=== PATIENT | male | born 1935 | race Caucasian/White ===

== ENCOUNTER → 2016-09-26 | Outpatient (CLI) | payer OTHER ==
[~2016-09-26] VITALS: Ht 177.8 cm; Wt 131.5 kg
[~2016-09-26] MED LIST: BUDE1SUS INH; BUDE1SUS NEB; CARV3.12 PO; CEFD1CAP14 PO; CHOL1000 PO; CIPR1TAB10 PO; CIPR1TAB11 PO; CMD25 PO; CMD5 PO; CPR/500 PO; CPR500 PO; DAPT500I IV; ECRCR EXT; ERGO500037 PO; FERR1TAB23; FRS/40 PO; FURO-85 PO; HMLI7525 SC; HUMALOG MIX SQ; HYDR-4079 PO; INSDGIPEN SC; INSU1INJ SC; IPRASOL4 INH; LEVO100T7 PO; LINE1TAB6 PO; LOSA50TA6 PO; LSX40 PO; MCTP EXT; MCTP/85 EXT; METF-382 PO; NF1094 IV; NYSP EXT; OXGN; PROBCAP PO; SIMV20TA2 PO; TAMS0.4C38 PO; VNTHFA/IN INH; WARF5TAB7 PO; ventolin hfa INH
[2016-09-26 12:38] VITALS: BP 137/64; PULSE 72; Ht 177.8 cm; Wt 131.5 kg
== END | disposition home or self-care (01) ==
LOC: C.NEUR 12:23
PROVIDERS: ATTEND Allergy & Immunology Allergy
DX: G47.30 Sleep apnea, unspecified (principal); E11.40 Type 2 diabetes mellitus with diabetic neuropathy, unspecified

== ENCOUNTER → 2016-11-07 | Outpatient (CLI) | payer OTHER ==
[~2016-11-07] MED LIST changes: -HUMALOG MIX SQ
[2016-11-07 14:22] LABS: BASO % 0.4 %; BASO ABS # 0.03 K/uL (0-0.2); COMPLETE YES; EOS % 5.1 %; IG% 0.3 %; MEAN CELL VOLUME 95.2 fL (80-100); MEAN CORPUSCULAR HGB CONC 32.5 g/dl (32-36); MEAN PLATELET VOLUME 9.4 fL (7.4-10.4); MONO % 10.2 %; PLATELET COUNT 221 K/uL (130-400); RED BLOOD COUNT 3.78 M/uL (4.7-6.1); WHITE BLOOD COUNT 7.32 K/uL (4.8-10.8)
[2016-11-07 14:33] LABS: BLOOD UREA NITROGEN 56 mg/dl (7-18); BUN/CREATININE RATIO 27.8 (10-20); CALCIUM 8.9 mg/dl (8.5-10.1); CARBON DIOXIDE 25 mmol/L (21-32); CHLORIDE 106 mmol/L (98-107); GLUCOSE 143 mg/dl (70-99); MAGNESIUM 2.5 mg/dl (1.8-2.4); PHOSPHORUS 3.7 mg/dl (2.5-4.9); POTASSIUM 5.1 mmol/L (3.5-5.1); SODIUM 142 mmol/L (136-145)
[2016-11-07 14:40] LABS: URINE PROTIEN/CREAT RATIO 0.2 (0-0.2); URINE TOTAL PROTEIN 17.8 mg/dl (0-11.9)
[2016-11-07 14:48] LABS: URINE APPEARANCE CLEAR (CLEAR); URINE BILIRUBIN NEG (NEG); URINE COLOR YELLOW; URINE NITRITE NEG (NEG); URINE SPECIFIC GRAVITY 1.013 (1.000-1.030); UROBILINOGEN NEG (NEG); ZZUR CULT IF INDIC CLEAN CATCH NO
[2016-11-07 14:49] LABS: MANUAL MICROSCOPIC REQUIRED? NO; REVIEW REQ? NO
== END | disposition home or self-care (01) ==
LOC: C.LABCC 09:14
PROVIDERS: ATTEND Internal Medicine Nephrology
DX: N18.3 Chronic kidney disease, stage 3 (moderate) (principal); D64.9 Anemia, unspecified

== ENCOUNTER → 2016-12-12 | Outpatient (CLI) | payer OTHER ==
[~2016-12-12] VITALS: Ht 177.8 cm; Wt 127.8 kg
[~2016-12-12] MED LIST changes: +HUMALOG MIX SQ
[2016-12-12 13:06] VITALS: BP 129/53; PULSE 78; Ht 177.8 cm; Wt 127.8 kg
== END | disposition home or self-care (01) ==
LOC: C.NEUR 12:46
PROVIDERS: ATTEND Physician Assistant Medical
DX: G47.30 Sleep apnea, unspecified (principal); E11.40 Type 2 diabetes mellitus with diabetic neuropathy, unspecified; J44.9 Chronic obstructive pulmonary disease, unspecified

== ENCOUNTER 2017-01-02 07:08 | Inpatient (IN) | payer OTHER ==
[2017-01-02] VITALS (7 sets, daily range): BP systolic 91–104; BP diastolic 51–64; PULSE 44–80; TEMP 36.8–37.4; O2SAT 93–99; Ht 175.3 cm; Wt 131.4 kg
[~2017-01-02] VITALS: Ht 175.3 cm; Wt 131.4 kg
[2017-01-02] MEDS ORDERED: SODIUM CHLORIDE 0.9% 1000ML 1,000 ML IV STA ×2 (07:25→08:00)
[2017-01-02] MEDS ORDERED: SODIUM CHLORIDE 0.9% 1000ML 1,000 ML IV ONE (07:25)
--- NOTE | 2017-01-02 07:43 | EMERGENCY ROOM VISIT NOTE ---
History Report prepared by Brenibbisi: Briseida Zavala Under the Supervision of: Dr. Houston Luis M.D. First contact with patient: 07:16 Chief Complaint: FEVER Stated Complaint: FEVER History of Present Illness The patient is a 81 year old male who presents to the Emergency Room via EMS with complaints of a waxing and waning fever over the past 3 days. He states that his temperature ranges from the high 90s to 102. He also complains of a cough. He states that he has been keeping up with fluids. He reports that yesterday, he slid off of his bed when he was reaching for something onto his knees. He obtained abrasions to his knees but did not acquire any other injuries or lose consciousness. The patient could not get up on his own and had to call EMS to help him after being on the ground for about an hour. He did get a flu shot this year. His son states that the patient has not been confused recently. He is on warfarin. Past medical history includes COPD. He has an inhaler and nebulizer but has not needed to use them recently. He is diabetic and his sugars have been doing well. Denies headache, chest pain, urinary symptoms, nausea, vomiting, diarrhea, abdominal pain, or other complaints. Source of History: patient Onset: 3 days ago Position: other (global) Symptom Intensity: temperature from high 90s to 102 Timing: waxes/wanes Associated Symptoms: + cough, No abdominal pain, No chest pain, No diarrhea , No headache, No nausea, No urinary symptoms, No vomiting Review of Systems See HPI for pertinent positives & negatives. A total of 10 systems reviewed and were otherwise negative. Past Medical & Surgical Medical Problems: (1) A-fib (2) Acute kidney injury (3) Anemia (4) ASCVD (arteriosclerotic cardiovascular disease) (5) CHF (congestive heart failure) (6) COPD (chronic obstructive pulmonary disease) (7) Dermatitis, seborrheic (8) Diabetes (9) Elevated alkaline phosphatase level (10) Elevated LFTs (11) Hyperlipidemia (12) Hypertension (13) Hypotension (14) Hypothyroid (15) Ichthyosis (16) Painful diabetic neuropathy (17) Pulmonary hypertension (18) Secondary hyperparathyroidism (19) SIRS (systemic inflammatory response syndrome) (20) Sleep apnea (21) Stage 3 chronic kidney disease Surgical Problems: (1) Hx of CABG Old medical records were reviewed. Nurse's notes were reviewed and I agree with. Family History No pertinent family history stated. Social History Marital Status: Housing Status: lives with significant other Occupation Status: retired Current/Historical Medications Scheduled Carvedilol (Coreg), 3.125 MG PO BID Ergocalciferol (Vitamin D 76134 Unit), 50,000 UNIT PO MONTHLY Furosemide (Lasix), 20 MG PO Q2D Insulin Lispro 75/25 (Humalog Mix 75/25), 30 UNITS SC BID Ipratropium-Albuterol (Duoneb), 1 TREATMENT INH Q4H Levothyroxine Sodium (Levothyroxine Sodium), 100 MCG PO DAILY Losartan Potassium (Cozaar), 50 MG PO DAILY Metformin Ext Rel (Glucophage Ext Rel), 500 MG PO BID Simvastatin (Zocor), 20 MG PO DAILY Tamsulosin Hcl (Flomax), 0.4 MG PO DAILY Warfarin Sod (Jantoven), 5 MG PO UD Warfarin Sod (Jantoven), 2.5 MG PO UD Scheduled PRN Oxygen (Oxygen), 2-3 LITER NA HS PRN for Shortness of Breath Allergies Coded Allergies: Chlorpheniramine (Unverified Allergy, Unknown, ., 01/02/17) Phenylpropanolamine (Unverified Allergy, Unknown, ., 01/02/17) Physical Exam Vital Signs Date Time Temp Pulse Resp B/P Pulse Ox O2 Delivery O2 Flow Rate FiO2 01/02/17 09:20 59 24 78/53 96 Nasal Cannula 2.0 01/02/17 08:38 61 22 83/39 92 Nasal Cannula 2.0 01/02/17 07:55 62 01/02/17 07:33 96 Nasal Cannula 2.0 01/02/17 07:33 95 Nasal Cannula 2.0 01/02/17 07:22 38.1 69 24 97/41 90 Room Air Physical Exam General: Non-ill appearing older male, occasionally coughing, no respiratory distress. Well developed well nourished in no acute distress, breathing comfortably on room air. Normal speech HEENT: Normal cephalic atraumatic. Pupils are equal round and reactive to light. Extraocular movements are intact. Oropharynx is pink with moist mucous membranes. No swelling of the mouth lips or tongue. Neck: Supple with a midline trachea. No meningeal signs or stiffness, no JVD or bruits. No Stridor. Chest: Clear to auscultation bilaterally. No wheezes or rhonchi. No increased work of breathing. Heart: regular rate and rhythm. Abdomen: Soft nontender, nondistended without rebound guarding or rigidity. :. No masses or tenderness of the testicles. There is redness in the groin consistent with yeast infection. No evidence to suggest cellulitis or Jamari' s gangrene Extremities: No cyanosis clubbing or edema. No calf tenderness or assymetry. Pinkish discoloration of the left nolan with some redness of the toes and skin breakdown, no crepitus. Spine/Back. Non tender to palpation. No CVA tenderness Skin: Good turgor without rashes. Neurologic exam: Cranial nerves two through 12 are intact. Motor and sensation are intact and symmetrical throughout. Medical Decision & Procedures ER Provider Diagnostic Interpretation: Radiology results as stated below per my review and radiologist interpretation: CHEST ONE VIEW PORTABLE CLINICAL HISTORY: CHEST PAIN dyspnea COMPARISON STUDY: No previous studies for comparison. FINDINGS: Moderate cardiomegaly. Lungs are clear. Diaphragms smooth. IMPRESSION: Cardiomegaly. Otherwise negative study Electronically signed by: Tian Machado M.D. 01/02/2017 8:08 AM Dictated Date/Time: 01/02/2017 8:07 AM Laboratory Results 01/02/17 06:45 Red Blood Count 3.52, Mean Corpuscular Volume 91.2, Mean Corpuscular Hemoglobin 31.5, Mean Corpuscular Hemoglobin Concent 34.6, Mean Platelet Volume 9.8, Neutrophils (%) (Auto) 91.4, Lymphocytes (%) (Auto) 3.4, Monocytes (%) (Auto) 4.8, Eosinophils (%) (Auto) 0.0, Basophils (%) (Auto) 0.1, Neutrophils # (Auto) 18.28, Lymphocytes # (Auto) 0.68, Monocytes # (Auto) 0.96, Eosinophils # (Auto) 0.00, Basophils # (Auto) 0.01 01/02/17 06:45 Test 01/02/17 06:45 01/02/17 07:45 01/02/17 07:52 01/02/17 07:54 White Blood Count 19.99 K/uL (4.8-10.8) Red Blood Count 3.52 M/uL (4.7-6.1) Hemoglobin 11.1 g/dL (14.0-18.0) Hematocrit 32.1 % (42-52) Mean Corpuscular Volume 91.2 fL (80-100) Mean Corpuscular Hemoglobin 31.5 pg (25-34) Mean Corpuscular Hemoglobin Concent 34.6 g/dl (32-36) Platelet Count 202 K/uL (130-400) Mean Platelet Volume 9.8 fL (7.4-10.4) Neutrophils (%) (Auto) 91.4 % Lymphocytes (%) (Auto) 3.4 % Monocytes (%) (Auto) 4.8 % Eosinophils (%) (Auto) 0.0 % Basophils (%) (Auto) 0.1 % Neutrophils # (Auto) 18.28 K/uL (1.4-6.5) Lymphocytes # (Auto) 0.68 K/uL (1.2-3.4) Monocytes # (Auto) 0.96 K/uL (0.11-0.59) Eosinophils # (Auto) 0.00 K/uL (0-0.5) Basophils # (Auto) 0.01 K/uL (0-0.2) RDW Standard Deviation 49.3 fL (36.4-46.3) RDW Coefficient of Variation 14.7 % (11.5-14.5) Immature Granulocyte % (Auto) 0.3 % Immature Granulocyte # (Auto) 0.06 K/uL (0.00-0.02) Prothrombin Time 25.4 SECONDS (9.0-12.0) Prothromb Time International Ratio 2.3 (0.9-1.1) Activated Partial Thromboplast Time 39.2 SECONDS (21.0-31.0) Partial Thromboplastin Ratio 1.5 Anion Gap 11.0 mmol/L (3-11) Est Creatinine Clear Calc Drug Dose 31.3 ml/min Estimated GFR () 26.9 Estimated GFR (Non- 23.2 BUN/Creatinine Ratio 26.0 (10-20) Calcium Level 8.1 mg/dl (8.5-10.1) Total Bilirubin 2.0 mg/dl (0.2-1) Direct Bilirubin 1.0 mg/dl (0-0.2) Aspartate Amino Transf (AST/SGOT) 80 U/L (15-37) Alanine Aminotransferase (ALT/SGPT) 40 U/L (12-78) Alkaline Phosphatase 346 U/L (45-117) Total Creatine Kinase 1903 U/L (39-308) Creatine Kinase MB 2.5 ng/ml (0.5-3.6) Creatine Kinase MB Ratio 0.1 (0-3.0) Total Protein 7.1 gm/dl (6.4-8.2) Albumin 2.9 gm/dl (3.4-5.0) Lipase 114 U/L (73-393) Influenza Type A (RT-PCR) Neg for Influ A (NEG) Influenza Type A Antigen Neg for Influ A (NEG) Influenza Type B Antigen Neg for Influ B (NEG) Influenza Type B (RT-PCR) Neg for Influ B (NEG) Bedside Lactic Acid Venous 1.31 mmol/L (0.90-1.70) Bedside Troponin I 0.110 ng/ml (0-0.045) BE-Obd-U-Type Natriuretic Peptide 26459 pg/ml (0-1800) Laboratory studies as stated above per my review. Medications Administered Medications (Trade) Dose Ordered Sig/Sukhwinder Route Start Time Stop Time Status Last Admin Dose Admin Sodium Chloride 1,000 ml @ 999 mls/hr Q1H1M STAT IV 01/02/17 07:25 01/02/17 08:25 DC 01/02/17 08:18 999 MLS/HR Sodium Chloride (Nss 1000ml) 1,000 ml @ 150 mls/hr Q6H40M ONCE IV 01/02/17 07:25 01/02/17 12:07 DC 01/02/17 08:35 150 MLS/HR Piperacillin Sod/ Tazobactam Sod 4.5 gm 4.5 gm NOW STAT IV 01/02/17 07:52 01/02/17 07:54 DC 01/02/17 08:35 4.5 GM Sodium Chloride (Nss 1000ml) 250 ml @ 999 mls/hr Q16M STAT IV 01/02/17 08:00 01/02/17 08:15 DC 01/02/17 08:34 999 MLS/HR Acetaminophen 650 mg 650 mg NOW STAT PO 01/02/17 08:23 01/02/17 08:24 DC 01/02/17 08:48 650 MG Sodium Chloride 500 ml @ 999 mls/hr Q31M STAT IV 01/02/17 09:05 01/02/17 09:35 DC 01/02/17 09:05 999 MLS/HR Sodium Chloride (Nss 1000ml) 1,000 ml @ 80 mls/hr [id number] IV 01/02/17 09:24 02/01/17 09:23 01/02/17 13:27 80 MLS/HR Morphine Sulfate (MoRPHine SULFATE INJ) 2 mg Q4H PRN IV 01/02/17 09:30 01/16/17 09:29 01/02/17 15:28 2 MG Morphine Sulfate (MoRPHine SULFATE INJ) 4 mg Q4H PRN IV 01/02/17 09:30 01/16/17 09:29 01/02/17 10:02 4 MG ECG Indication: other (fever) Rate (beats per minute): 60 Rhythm: sinus bradycardia Findings: no acute ischemic change, no ectopy Comparison ECG Date: no prior available ED Course 0719: Past medical records reviewed. The patient was evaluated in room A2, and a complete history and physical examination were performed. 0725: Ordered NSS 1000 ml @ 150 mls/hr IV, NSS 1000 ml @ 999 mls/hr IV. 0751: I reassessed the patient. he was comfortable. He denies any antibiotic allergies. 0752: Ordered Zosyn 4.5 gm IV. 0800: Ordered NSS 1000 ml @ 100 mls/hr IV, NSS 250 ml @ 999 mls/hr IV. 0816: I discussed the case with Dr. Blake [facility] Hospitalist. The patient will be evaluated for further management. 0820: I spoke with the patient's son and updated him on the plan. He was in agreement. 0823: Ordered acetaminophen 650 mg PO. 0904: I spoke with Dr. Tanner and reassessed the patient. The patient's pressure dropped. I evaluated his groin which revealed yeast but no evidence of Jamari's gangrene. 0905: Ordered NSS 500 ml @ 999 mls/hr IV. Medical Decision Differentials include cellulitis, pneumonia, influenza, CHF, arrhythmia, electrolyte or metabolic abnormality. This patient comes in as described above. He was brought in by EMS after having a fever intimately for a couple days. On exam, his left leg is red and he has some redness of his toes as well, he may have a cellulitis is also had a cough and URI type symptoms. His blood pressure is mildly low at 97 systolic initially a little he looks well. He has no abdominal pain. He's been keeping up with his fluids. He has no headache. IV access was established, he has a cardiac history so he was gently hydrated initially. His chest x-ray shows cardiomegaly. EKG does not show any definite ischemic changes. White count is elevated at 19. Blood cultures were obtained his INR is therapeutic at 2.3. He is empirically given Zosyn initially 4.5 mg IV that would get good skin and initial long coverage as well. He was reassessed frequently. His lactic acid was reassuring was not elevated. He does have renal insufficiency. Chest x- ray does not show any definite pneumonia. Dr. Tanner came and saw the patient. His blood pressure was low and did trend downward to the 70s and he was given more fluids with this hydration he did come up to 100s systolic and felt better prior to being admitted to the hospital. At this point, he appears to have sepsis likely from his leg/diabetic foot. He will be admitted Consults Time Called: 08 Consulting Physician: Dr. Hayden Robins [facility] Hospitalist Returned Call: 0816 I discussed the case with him. The patient will be evaluated for further management. Impression Primary Impression: Sepsis Additional Impression: Cellulitis of left lower extremity Scribe Attestation The scribe's documentation has been prepared under my direction and personally reviewed by me in its entirety. I confirm that the note above accurately reflects all work, treatment, procedures, and medical decision making performed by me. Departure Information Dispostion Being Evaluated By Hospitalist Referrals Winston Harper M.D. (PCP) Patient Instructions My [facility] Problem Qualifiers
[2017-01-02 07:45] LABS: HEMATOCRIT 32.1 % (42-52); MEAN CELL VOLUME 91.2 fL (80-100); MEAN CORPUSCULAR HEMOGLOBIN 31.5 pg (25-34); MEAN CORPUSCULAR HGB CONC 34.6 g/dl (32-36); MEAN PLATELET VOLUME 9.8 fL (7.4-10.4); PLATELET COUNT 202 K/uL (130-400); RED BLOOD COUNT 3.52 M/uL (4.7-6.1); WHITE BLOOD COUNT 19.99 K/uL (4.8-10.8)
[2017-01-02] MEDS ORDERED: PIPERACILLIN/TAZOBACTAM 4.5 GM/100ML D5W IV STA (07:52)
[2017-01-02 07:54] LABS: INR 2.3 (0.9-1.1); PARTIAL THROMBOPLASTIN RATIO 1.5; PROTHROMBIN TIME (PATIENT) 25.4 SECONDS (9.0-12.0)
[2017-01-02] MEDS ORDERED: SODIUM CHLORIDE 0.9% 1000ML 250 ML IV STA (08:00)
[2017-01-02 08:05] LABS: CALCIUM 8.1 mg/dl (8.5-10.1); CREATININE 2.5 mg/dl (0.60-1.40); POTASSIUM 4.7 mmol/L (3.5-5.1)
--- NOTE | 2017-01-02 08:10 | DIAGNOSTIC IMAGING REPORT ---
CHEST ONE VIEW PORTABLE CLINICAL HISTORY: CHEST PAIN dyspnea COMPARISON STUDY: No previous studies for comparison. FINDINGS: Moderate cardiomegaly. Lungs are clear. Diaphragms smooth. IMPRESSION: Cardiomegaly. Otherwise negative study Electronically signed by: Tian Machado M.D. 01/02/2017 8:08 AM Dictated Date/Time: 01/02/2017 8:07 AM
[2017-01-02 08:12] LABS: BASO % 0.1 %; BASO ABS # 0.01 K/uL (0-0.2); COMPLETE YES; IG% 0.3 %; LYMPH % 3.4 %; LYMPH ABS # 0.68 K/uL (1.2-3.4); MONO % 4.8 %; NEUT % 91.4 %
[2017-01-02 08:15] LABS: POINT OF CARE TROPONIN I 0.11 ng/ml (0-0.045)
[2017-01-02 08:19] LABS: CKMB/CK RATIO 0.1 (0-3.0)
[2017-01-02] MEDS ORDERED: ACETAMINOPHEN 325 MG TAB PO STA (08:23)
[2017-01-02] MEDS ORDERED: ERGO500037 PO (08:25)
[2017-01-02] MEDS ORDERED: FURO-85 PO (08:25)
[2017-01-02] MEDS ORDERED: LOSA50TA6 PO (08:25)
[2017-01-02] MEDS ORDERED: HMLI7525 SC (08:25)
[2017-01-02] MEDS ORDERED: WARF5TAB7 PO (08:25)
[2017-01-02] MEDS ORDERED: METF-382 PO (08:25)
[2017-01-02] MEDS ORDERED: CARV3.12 PO (08:25)
[2017-01-02] MEDS ORDERED: SODIUM CHLORIDE 0.9% 1000ML 500 ML IV STA (09:05)
[2017-01-02] MEDS ORDERED: ONDANSETRON INJ 2 MG/ML 2 ML VIAL IV PRN (09:30)
[2017-01-02] MEDS ORDERED: VANCOMYCIN INJ 1,000 MG in SODIUM CHLORIDE 0.9% 250ML 250 ML SCH (09:30)
[2017-01-02] MEDS ORDERED: POLYETHYLENE (MIRALAX) 17 GM PACK PO PRN (09:30)
[2017-01-02] MEDS ORDERED: ALUMINUM/MAGNESIUM/SIMETH (MAALOX MAX) 30 ML UDC PO PRN (09:30)
[2017-01-02] MEDS ORDERED: MAGNESIUM HYDROXIDE SUSP 30 ML UDC PO PRN (09:30)
[2017-01-02] MEDS ORDERED: NITROGLYCERIN 0.4 MG SL PER TAB CHARGE SL PRN (09:30)
[2017-01-02 09:57] LABS: INFLUENZA A PCR Neg for Influ A (NEG); INFLUENZA B PCR Neg for Influ B (NEG)
[2017-01-02] MEDS ORDERED: VANCOMYCIN INJ 2,000 MG in SODIUM CHLORIDE 0.9% 500ML 500 ML IV ONE (10:00)
[2017-01-02] MEDS ORDERED: VANCOMYCIN CONSULT ACTIVE PRN (10:00)
[2017-01-02] MEDS: MoRPHine SULFATE 4 MG/ML 1 ML CARP\\VIAL IV PRN (10:02)
--- NOTE | 2017-01-02 10:29 | HISTORY & PHYSICAL EXAMINATION ---
DATE OF ADMISSION: 01/02/2017 CHIEF COMPLAINT: Weakness. ADMITTING DIAGNOSIS: Systemic inflammatory response syndrome secondary to diabetic foot infection. HISTORY OF PRESENT ILLNESS: Mr. Villarreal is an 81-year-old insulin requiring diabetic who over the last 3-4 days has been having high fevers at home. He does see podiatric care for his diabetic foot neuropathy and callus formation. He says he has been treated for an ulcer or abrasion of his left third toe for some time. The patient slipped out of bed and fell to the floor and could not get up this morning. The patient also suffers from chronic respiratory failure, COPD, obstructive sleep apnea and has been also having a cough productive of clear sputum over the last 3-4 days. Additionally, he has a rash below his pannus in his groin area which had been worsening of late also. Upon evaluation in the ER, he was found to have a white count of 19,000, acute renal failure with a BUN of 65 and creatinine of 2.5 where his baseline is around 2. Minor elevation of his troponin elevation of his CK which likely might be attributed to his fall and extremely low blood pressure 70/50. He is not tachycardic, but takes a beta jorge a daily. He is febrile 38.1. He, however, is mentating well, alert. He is getting some right leg spasmodic pain and otherwise he is recommended for admission. PAST MEDICAL HISTORY: He has got atrial fibrillation flutter chronically. He had a CABG and aortic valve replacement. He has severe pulmonary hypertension. COPD, chronic anemia which he takes iron. Heart failure is listed, although his last echocardiogram showed a preserved EF of 65% with some concentric LVH. He has got insulin requiring diabetes with neuropathy. He has chronically elevated LFTs and alkaline phosphatase, dyslipidemia, hypothyroidism, hypertension, chronic kidney disease, secondary hyperparathyroidism, BPH. MEDICATIONS: Coreg 3.125 b.i.d., vitamin D 50,000 units a month, DuoNebs p.r.n., iron 325 two times a week, Lasix 20 every other day. He took Lasix today. Hydrocodone p.r.n. for pain, Synthroid 100 mcg a day, Losartan 50 mg a day, metformin 500 mg b.i.d., insulin lispro 75/25 30 units b.i.d., Zocor 20 a day, Flomax 0.4 a day, albuterol as needed, Coumadin 5 mg 6 days a week and 2.5 mg on Sunday. SOCIAL HISTORY: He is a nonsmoker currently. He has a distant occasional smoking use. He does not drink alcohol. He is accompanied by his family. FAMILY HISTORY: Positive for diabetes, hypertension and heart disease. REVIEW OF SYSTEMS: Ten systems are reviewed and are negative unless listed above. Of note, he has got no changes in his bowel habits or urinary habits. PHYSICAL EXAMINATION: GENERAL: Physically as mentioned. VITAL SIGNS: His temperature 38.1, pulse 69, respirations rate 24, blood pressure 70/50 on my account, 83/39 on the computer, O2 sats 92 on 2 liters. HEAD, EYES, EARS, NOSE, AND THROAT: PERRL, EOMI. Oropharynx shows posterior pharyngeal thrush. He drank water and it did not clear. NECK: Without lymphadenopathy. Trachea is midline. HEART: Regular with a systolic murmur at the right upper sternal border. LUNGS: Have coarse breath sounds. No focal air loss. No wheezes. ABDOMEN: Obese, normoactive bowel sounds. Umbilical hernia which is reducible. No focal areas of tenderness. EXTREMITIES: Show changes of chronic venous stasis dermatitis, however his left extremity shows more swelling and erythema to the mid nolan. He has got erythema to the dorsum of his foot. He has got 2 abrasions on the left second and third toe on the dorsum. There is erythema and ecchymosis associated with it. His right foot does not show any of these signs, only signs of chronic venous stasis changes. His pulses are diminished but palpable 1 / 4 at his dorsalis pedis bilaterally. He is awake, alert and appropriate. Cranial nerves II-XII are intact. He has diabetic neuropathy to the mid nolan bilaterally. SKIN EXAMINATION: Only with changes of chronic venous stasis. LABORATORY DATA: He has a white count of 19, H\T\H 11 and 32, platelet count 202. BUN and creatinine 65 and 2.5, potassium 4.9. He has chronically elevated LFTs. His bilirubin is 2.0, AST is 80, alkaline phosphatase 346. His elevated CK of 1900. Troponin 0.1, his BNP is elevated at 10,669. He has a chest x-ray which shows no focal infiltrates. I do not have an EKG in our system. I am sure there was one done this morning. We will make sure we do one to review. ASSESSMENT: An 81-year-old male here with SIRS likely from diabetic foot infection, acute on chronic renal failure and chronic respiratory failure with nocturnal hypoxia requiring CPAP at 11 cm. PLAN: For his SIRS he had blood cultures obtained. He was given Zosyn in the ER. We will continue Zosyn and vancomycin pending cultures with pharmacy renally adjusting his medications. Regarding his oral and panniculitis candidal or thrush infections will use Nystatin swish and swallow and topical Nystatin powder. Regarding his diabetic foot abrasions and likely portals of infection. We will get a wound care consultation. Regarding his SIRS he was given a liter in the ER. We will hold his antihypertensive medications of Coreg, losartan and Lasix. We will keep him on maintenance fluids overnight watching for volume overload or additional requirements. He will also have a lactic acid repeated as his initial lactic acid was not elevated. Regarding his chronic respiratory failure, will maintain him on DuoNebs q.i.d. respiratory with CPAP at night with oxygen bleed-in. Regarding his anticoagulation it is therapeutic. We will maintain it watching for antibiotic alterations of this by checking daily PT/INRs. Regarding his diabetes because he is significantly ill today we will hold his lispro 75/25 and convert it to Lantus 20 b.i.d. with insulin sliding scale and pharmacy adjustment. DVT prevention warfarin. HE IS A FULL CODE. His other medications that are maintenance will be continued. He is pending hemoglobin A1c in the morning.
[2017-01-02] MEDS ORDERED: PIPERACILL/TAZOBAC CONSULT ACTIVE PRN (12:15)
--- NOTE | 2017-01-02 12:32 | Pharmacy Progress Note ---
Pharmacy Antibiotic Consult Date of Service: Jan 02, 2017. Pharmacy Dosing Scope Pharmacy is consulted to initiate Vancomycin and Zosyn IV dosing therapy, order appropriate labs and adjust drug dose/frequency. Subjective The patient is a 81 year old male admitted on Jan 02, 2017 at 09:36. Objective Height (Feet): 5 Height (Inches): 9.00 Weight (Kilograms): 130.600 Lab Results (24hrs): Laboratory Tests Test 01/02/17 06:45 BUN/Creatinine Ratio 26.0 Blood Urea Nitrogen 65 mg/dl Creatinine 2.50 mg/dl White Blood Count 19.99 K/uL Red Blood Count 3.52 M/uL Hemoglobin 11.1 g/dL Hematocrit 32.1 % Mean Corpuscular Volume 91.2 fL Mean Corpuscular Hemoglobin 31.5 pg Mean Corpuscular Hemoglobin Concent 34.6 g/dl Platelet Count 202 K/uL Mean Platelet Volume 9.8 fL Neutrophils (%) (Auto) 91.4 % Lymphocytes (%) (Auto) 3.4 % Monocytes (%) (Auto) 4.8 % Eosinophils (%) (Auto) 0.0 % Basophils (%) (Auto) 0.1 % Neutrophils # (Auto) 18.28 K/uL Lymphocytes # (Auto) 0.68 K/uL Monocytes # (Auto) 0.96 K/uL Eosinophils # (Auto) 0.00 K/uL Basophils # (Auto) 0.01 K/uL Micro Results: Item Value Date Time Blood Culture Received 01/02/17 0745 Blood Pending Blood Culture Received 01/02/17 0740 Blood Pending Assessment & Plan * Pt admitted today with sepsis suspected to be secondary to diabetic foot infection. Pharmacy consulted to initiate dosing for Vancomycin and Zosyn. Vancomycin * Kidney function is diminished, however, b/l kidney function is poor anyway. B /l SCr is ~2.0. * Estimated half life of Vancomycin is 24 hours. Also, BMI is 43 kg/m2 putting pt at risk for drug accumulation. * Pt received a Vancomycin 15mg/kg dose in the ED this morning. Will initiate a maintenance dose of Vancomycin 15mg/kg q 24hours. Start first dose in 18 hours to make up for not a full loading dose being administered. * Obtain a trough level prior to the 4th dose on 01/05 at 0400. Goal trough is ~ 15 mcg/ml. Zosyn * Pt received a bolus dose of Zosyn 4.5gm IV x 1 in the ED. * Continue maintenance dose of Zosyn 4.5gm IV q8 hours EI for Crcl > 30 ml/min and BMI > 35 mg/k2. Pharmacy will continue to follow and will adjust dose/frequency as necessary. Thank you
[2017-01-02] MEDS ORDERED: NURSING VERBAL MED ORDER ONE (12:45)
[2017-01-02] MEDS ORDERED: GLUCAGON FOR INJ 1 MG VIAL SQ PRN (13:15)
[2017-01-02] MEDS ORDERED: GLUCOSE 10 TABS/TUBE PO PRN (13:15)
[2017-01-02] MEDS ORDERED: GLUCOSE 40% GEL 15 GM TUBE PO PRN (13:15)
[2017-01-02] MEDS ORDERED: DEXTROSE 50% 50 ML SYR IV PRN (13:15)
[2017-01-02 13:21] LABS: URINE APPEARANCE CLOUDY (CLEAR); URINE COLOR DK YELLOW; URINE NITRITE NEG (NEG); UROBILINOGEN NEG (NEG)
[2017-01-02] MEDS: SODIUM CHLORIDE 0.9% 1000ML 1,000 ML IV SCH ×2 (13:27→18:27)
[2017-01-02] MEDS: EUCERIN CR 120 GM JAR EXT SCH (13:28)
[2017-01-02] MEDS: MICONAZOLE NITRATE POWDER 43 GM EXT SCH (13:28)
[2017-01-02 13:34] LABS: MANUAL MICROSCOPIC REQUIRED? NO; REVIEW REQ? YES; URINE BILIRUBIN NEG (NEG)
[2017-01-02] MEDS: INSULIN ASPART 100 UNITS/ML 3 ML PEN SC SCH ×3 (13:52→20:58)
[2017-01-02] MEDS: NYSTATIN SUSP 500,000 U/5 ML UDC PO SCH ×3 (13:53→20:57)
[2017-01-02] MEDS: MoRPHine SULFATE 2 MG/ML CARP IV PRN ×2 (15:28→23:44)
[2017-01-02] MEDS: PIPERACILL/TAZOBAC IV 4.5 GM in DEXTROSE 5% 100ML 100 ML IV SCH ×2 (15:28→23:44)
[2017-01-02] MEDS: ALBUT/IPRATROP 3MG/0.5MG NEB 3 ML VIAL INH SCH ×2 (16:00→20:01)
--- NOTE | 2017-01-02 16:10 | Nephrology Consultation ---
Nephrology Consultation Date & Providers Date of Consultation: Jan 02, 2017. Primary Care Provider: Winston Harper M.D. Referring Provider: Reason for Consultation Evaluation of acute on chronic kidney injury History of Present Illness Mr. Avery is an 81 year old white male who was seen at the request of Dr. Tanner for evaluation of acute on chronic kidney injury. Medical records in the hospital and office EMR were reviewed today and are summarized as follows: Mr. Avery has AODM > 20 years. He has no associated retinopathy. He does have nephropathy. Mr. Avery has stage IIIb A3 CKD. He follows with Dr. Robert Dan in the [facility] [place] [place] Nephrology office on a regular basis. He has been on ARB therapy and his urinary protein excretion has been relatively low grade. Mr. Avery's medical history is also significant for BMI > 40, HTN, hyperlipidemia, ASCVD s/p CABG w/ AVR, chronic atrial fibrillation, EVENS, gout, kidney stones and recurrent UTI. Over the last two days Mr. Avery has had a fever and progressive weakness. He presented to the [facility] ED this morning for evaluation. SBP was in the mid 70's, creatinine had risen from baseline 2.0 - 2.5. He was found to have an open lesion involving his left 2nd toe. Mr. Avery was admitted for management of septicemia, hypotension and acute on chronic kidney injury. His Losartan and Furosemide have been stopped. He is now on empiric Zosyn & Vancomycin therapy. 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 Baseline creatinine ~ 2.0. # HTN # BMI > 40 # EVENS # AODM. No retinopathy # Hyperlipidemia # ASCVD s/p CABG w/ AVR # chronic atrial fibrillation # h/o kidney stones and recurrent UTI # Gout Surgical: # ASCVD s/p CABG w/ AVR 2008 in [facility] Allergies Coded Allergies: Chlorpheniramine (Unverified Allergy, Unknown, ., 01/02/17) Phenylpropanolamine (Unverified Allergy, Unknown, ., 01/02/17) Inpatient Medications Current Inpatient Medications Medications (Trade) Dose Ordered Sig/Sukhwinder Route Start Time Stop Time Status Last Admin Dose Admin Sodium Chloride (Nss 1000ml) 1,000 ml @ 80 mls/hr [id number] IV 01/02/17 09:24 02/01/17 09:23 01/02/17 13:27 80 MLS/HR Acetaminophen (Tylenol Tab) 650 mg Q4H PRN PO 01/02/17 09:30 02/01/17 09:29 Al Hydrox/Mg Hydrox/Simethicone (Maalox Max Susp) 15 ml Q4H PRN PO 01/02/17 09:30 02/01/17 09:29 Magnesium Hydroxide (Milk Of Magnesia Susp) 30 ml Q12H PRN PO 01/02/17 09:30 02/01/17 09:29 Ondansetron HCl (Zofran Inj) 4 mg Q6H PRN IV 01/02/17 09:30 02/01/17 09:29 Nitroglycerin (Nitrostat Tab) 0.4 mg UD PRN SL 01/02/17 09:30 02/01/17 09:29 Polyethylene 17 gm 17 gm DAILY PRN PO 01/02/17 09:30 02/01/17 09:29 Piperacillin Sod/ Tazobactam Sod/ Dextrose (Zosyn Iv/D5 100ml) 120 ml @ 30 mls/hr Q8H IV 01/02/17 16:00 01/16/17 15:59 Piperacillin Sod/ Tazobactam Sod (Consult) 1 ea UD PRN N/A 01/02/17 12:15 02/01/17 12:14 Albuterol/ Ipratropium (Duoneb) 3 ml QIDR INH 01/02/17 12:00 02/01/17 11:59 Levothyroxine Sodium (Synthroid Tab) 100 mcg DAILYBB PO 01/03/17 06:00 02/02/17 08:59 Tamsulosin HCl (Flomax Cap) 0.4 mg DAILY PO 01/03/17 09:00 02/02/17 08:59 Warfarin Sodium (Coumadin Tab) 5 mg SuTuWeThFrSa@1600 PO 01/02/17 16:00 02/01/17 15:59 Nystatin (Mycostatin Powder) 1 appln BID EXT 01/02/17 21:00 02/01/17 20:59 Nystatin (Mycostatin Susp) 5 ml QID PO 01/02/17 13:00 01/12/17 12:59 01/02/17 13:53 5 ML Morphine Sulfate (MoRPHine SULFATE INJ) 2 mg Q4H PRN IV 01/02/17 09:30 01/16/17 09:29 Morphine Sulfate (MoRPHine SULFATE INJ) 4 mg Q4H PRN IV 01/02/17 09:30 01/16/17 09:29 01/02/17 10:02 4 MG Oxycodone HCl (Roxicodone Immediate Rel Tab) 10 mg Q6 PRN PO 01/02/17 09:30 01/16/17 09:29 Insulin Aspart (novoLOG ASPART) SLIDING SCALE PARAMETER ACHS SC 01/02/17 11:00 02/01/17 10:59 Insulin Glargine (Lantus Solostar Pen) 20 unit BID SC 01/02/17 21:00 02/01/17 20:59 Vancomycin HCl (Consult) 1 ea UD PRN N/A 01/02/17 10:00 02/01/17 09:59 Miconazole Nitrate (Desenex Powder) 1 appln DAILY EXT 01/03/17 09:00 02/02/17 08:59 01/02/17 13:28 1 APPLN Multi-Ingredient Ointment (Eucerin Unscented Cr) 1 appln DAILY EXT 01/03/17 09:00 02/02/17 08:59 01/02/17 13:28 1 APPLN Glucose (Glucose 40% Gel) 15-30 GRAMS 15 GRAMS... UD PRN PO 01/02/17 13:15 02/01/17 13:14 Glucose (Glucose Chew Tab) 4-8 Tablets 4 Tabl... UD PRN PO 01/02/17 13:15 02/01/17 13:14 Dextrose (Dextrose 50% 50ML Syringe) 25-50ML OF 50% DW IV FOR... UD PRN IV 01/02/17 13:15 02/01/17 13:14 Glucagon (Glucagon Inj) 1 mg UD PRN SQ 01/02/17 13:15 02/01/17 13:14 Warfarin Sodium (Coumadin Tab) 2.5 mg Mo@1600 PO 01/08/17 16:00 02/07/17 15:59 Family History Negative for CKD / ESRD Social History Smoking Status: Never Smoker Marital Status: Occupation: retired Retired. Originally from [employer]. [place]. 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 Never a smoker Review of Systems Constitutional: + fever Eyes: No worsening of vision Respiratory: No cough Cardiovascular: No chest pain Abdomen: No nausea, No pain, No vomiting Genitourinary - Male: No dysuria, No hematuria A complete review of systems was performed. Pertinent positives are noted above. All other systems are negative. Physical Exam Date Time Temp Pulse Resp B/P Pulse Ox O2 Delivery O2 Flow Rate FiO2 01/02/17 12:00 Nasal Cannula 2.0 01/02/17 11:49 36.8 67 24 91/52 95 Nasal Cannula 2.0 01/02/17 11:18 55 24 95/41 96 Nasal Cannula 2.0 01/02/17 10:25 37.5 59 22 100/41 96 Nasal Cannula 2.0 01/02/17 09:54 96 Nasal Cannula 2.0 01/02/17 09:20 59 24 78/53 96 Nasal Cannula 2.0 01/02/17 08:38 61 22 83/39 92 Nasal Cannula 2.0 01/02/17 07:55 62 01/02/17 07:33 96 Nasal Cannula 2.0 01/02/17 07:33 95 Nasal Cannula 2.0 01/02/17 07:22 38.1 69 24 97/41 90 Room Air General Appearance: no apparent distress Head: normocephalic, atraumatic Eyes: PERRL, EOMI ENT: pharynx normal Neck: no adenopathy, no JVD Respiratory/Chest: lungs clear, normal breath sounds Cardiovascular: + bradycardia, + irregularly irregular Abdomen/GI: normal bowel sounds, non tender, soft Genitourinary - Male: + pertinent finding (rucker catheter in place draining dark yellow urine) Extremities/Musculoskelatal: + swelling (1+ pretibial and pedal edema. Ulcerative lesion on the dorsal aspect of the left 2nd toe with surrounding erythema) Neurologic/Psych: alert, oriented x 3 Laboratory Results Last 24 Hours Test 01/02/17 06:45 01/02/17 07:45 01/02/17 07:52 01/02/17 07:54 White Blood Count 19.99 K/uL Red Blood Count 3.52 M/uL Hemoglobin 11.1 g/dL Hematocrit 32.1 % Mean Corpuscular Volume 91.2 fL Mean Corpuscular Hemoglobin 31.5 pg Mean Corpuscular Hemoglobin Concent 34.6 g/dl Platelet Count 202 K/uL Mean Platelet Volume 9.8 fL Neutrophils (%) (Auto) 91.4 % Lymphocytes (%) (Auto) 3.4 % Monocytes (%) (Auto) 4.8 % Eosinophils (%) (Auto) 0.0 % Basophils (%) (Auto) 0.1 % Neutrophils # (Auto) 18.28 K/uL Lymphocytes # (Auto) 0.68 K/uL Monocytes # (Auto) 0.96 K/uL Eosinophils # (Auto) 0.00 K/uL Basophils # (Auto) 0.01 K/uL RDW Standard Deviation 49.3 fL RDW Coefficient of Variation 14.7 % Immature Granulocyte % (Auto) 0.3 % Immature Granulocyte # (Auto) 0.06 K/uL Prothrombin Time 25.4 SECONDS Prothromb Time International Ratio 2.3 Activated Partial Thromboplast Time 39.2 SECONDS Partial Thromboplastin Ratio 1.5 Sodium Level 137 mmol/L Potassium Level 4.7 mmol/L Chloride Level 107 mmol/L Carbon Dioxide Level 19 mmol/L Anion Gap 11.0 mmol/L Blood Urea Nitrogen 65 mg/dl Creatinine 2.50 mg/dl Est Creatinine Clear Calc Drug Dose 31.3 ml/min Estimated GFR () 26.9 Estimated GFR (Non- 23.2 BUN/Creatinine Ratio 26.0 Random Glucose 104 mg/dl Calcium Level 8.1 mg/dl Total Bilirubin 2.0 mg/dl Direct Bilirubin 1.0 mg/dl Aspartate Amino Transf (AST/SGOT) 80 U/L Alanine Aminotransferase (ALT/SGPT) 40 U/L Alkaline Phosphatase 346 U/L Total Creatine Kinase 1903 U/L Creatine Kinase MB 2.5 ng/ml Creatine Kinase MB Ratio 0.1 Total Protein 7.1 gm/dl Albumin 2.9 gm/dl Lipase 114 U/L Influenza Type A (RT-PCR) Neg for Influ A Influenza Type A Antigen Neg for Influ A Influenza Type B Antigen Neg for Influ B Influenza Type B (RT-PCR) Neg for Influ B Bedside Lactic Acid Venous 1.31 mmol/L Bedside Troponin I 0.110 ng/ml PW-Bde-D-Type Natriuretic Peptide 36992 pg/ml Test 01/02/17 12:00 01/02/17 12:11 Lactic Acid Level 1.9 mmol/L Urine Color DK YELLOW Urine Appearance CLOUDY Urine pH 5.0 Urine Specific [place] 1.020 Urine Protein 1+ Urine Glucose (UA) NEG Urine Ketones NEG Urine Occult Blood 3+ Urine Nitrite NEG Urine Bilirubin NEG Urine Urobilinogen NEG Urine Leukocyte Esterase TRACE Urine WBC (Auto) 5-10 /hpf Urine RBC (Auto) >30 /hpf Urine Hyaline Casts (Auto) 1-5 /lpf Urine Epithelial Cells (Auto) 5-10 /lpf Urine Bacteria (Auto) 1+ Urine Yeast (Auto) Bedside Glucose 211 mg/dl Impression (1) Acute kidney injury (2) Stage 3 chronic kidney disease (3) SIRS (systemic inflammatory response syndrome) (4) Hypotension (5) Cellulitis of left lower extremity (6) ASCVD (arteriosclerotic cardiovascular disease) (7) A-fib (8) Diabetes (9) Sleep apnea Mr. Avery was admitted to the hospital with LLE cellulitis, SIRS, relative hypotension and acute on chronic kidney injury. He has underlying diabetic nephropathy. His baseline creatinine has been 2.0. Blood cultures are currently pending. Urinalysis is positive for blood due to rucker catheter. Proteinuria is present c/w diabetic nephropathy. Patient has been started on empiric IV Vanco & Zosyn therapy PMH - AODM, BMI > 40, HTN, hyperlipidemia, ASCVD s/p CABG w/ AVR, chronic atrial fibrillation, EVENS, gout, kidney stones and recurrent UTI. Recommendations -- Hold Losartan and Furosemide -- Continue IV hydration -- Monitor serial PRP -- Will consider renal US if kidney function fails to stabilize -- Will check urine protein/creatinine ratio -- Await urine culture results
[2017-01-02] MEDS: WARFARIN SOD 5 MG TAB PO SCH (17:09)
[2017-01-02] MEDS: NYSTATIN POWDER 15GM BTL EXT SCH (20:57)
[2017-01-02] MEDS: INSULIN GLARGINE SOLOSTAR 100 UNITS/ML 3 ML PEN SC SCH (20:58)
[2017-01-02] MEDS ORDERED: OXYGEN SCH (21:00)
[2017-01-03] VITALS (12 sets, daily range): BP systolic 85–148; BP diastolic 54–71; PULSE 50–75; TEMP 36.6–38; O2SAT 91–99
[2017-01-03] MEDS: MoRPHine SULFATE 2 MG/ML CARP IV PRN ×3 (04:43→21:04)
[2017-01-03 05:43] LABS: HEMATOCRIT 28.9 % (42-52); MEAN CELL VOLUME 94.1 fL (80-100); MEAN CORPUSCULAR HEMOGLOBIN 31.3 pg (25-34); MEAN CORPUSCULAR HGB CONC 33.2 g/dl (32-36); PLATELET COUNT 162 K/uL (130-400); RED BLOOD COUNT 3.07 M/uL (4.7-6.1); WHITE BLOOD COUNT 10.73 K/uL (4.8-10.8)
[2017-01-03] MEDS: SODIUM CHLORIDE 0.9% 1000ML 1,000 ML IV SCH ×2 (05:53→23:30)
[2017-01-03] MEDS: LEVOTHYROXINE 100 MCG TAB PO SCH (05:53)
[2017-01-03 05:57] LABS: INR 2.7 (0.9-1.1); PROTHROMBIN TIME (PATIENT) 30.5 SECONDS (9.0-12.0)
[2017-01-03 06:13] LABS: BUN/CREATININE RATIO 25.8 (10-20); CREATININE 3.1 mg/dl (0.60-1.40)
[2017-01-03] MEDS: INSULIN ASPART 100 UNITS/ML 3 ML PEN SC SCH ×4 (07:00→20:54)
[2017-01-03 07:17] LABS: ESTIMATED AVERAGE GLUCOSE 148 mg/dl; HA1C FLAG Normal (Normal)
[2017-01-03] MEDS: ALBUT/IPRATROP 3MG/0.5MG NEB 3 ML VIAL INH SCH ×4 (07:39→19:48)
[2017-01-03] MEDS: OXYCODONE HCL IR 5 MG TAB (IMMEDIATE RELEASE) PO PRN (07:42)
[2017-01-03] MEDS: MICONAZOLE NITRATE POWDER 43 GM EXT SCH (07:43)
[2017-01-03] MEDS ORDERED: SODIUM CHLORIDE 0.9% 500ML 500 ML IV SCH (08:00)
[2017-01-03] MEDS: TAMSULOSIN HCL 0.4 MG CAP PO SCH (08:25)
[2017-01-03] MEDS: NYSTATIN SUSP 500,000 U/5 ML UDC PO SCH ×4 (08:26→20:52)
[2017-01-03] MEDS: INSULIN GLARGINE SOLOSTAR 100 UNITS/ML 3 ML PEN SC SCH ×2 (08:31→20:55)
[2017-01-03] MEDS: PIPERACILL/TAZOBAC IV 4.5 GM in DEXTROSE 5% 100ML 100 ML IV SCH ×3 (09:05→23:30)
--- NOTE | 2017-01-03 09:16 | Nephrology Progress Note ---
Nephrology Progress Note Date of Service Jan 03, 2017. Chief Complaint Evaluation of acute on chronic kidney injury Subjective Mr. Avery was seen & examined in the PCU this morning. He has been afebrile overnight. He is tolerating IV hydration. He currently denies angina, dyspnea or uremic symptoms. Mr. Avery is subjectively improved. He reports improved strength. He voices no new medical concerns at this time. Review of Systems Constitutional: No fever Cardiovascular: No chest pain Respiratory: No dyspnea at rest Abdomen: No nausea, No pain, No vomiting Extremities: + leg edema A complete review of systems was performed. Pertinent positives are noted above. All other systems are negative. Vital Signs Last 8 Hrs Date Time Temp Pulse Resp B/P Pulse Ox O2 Delivery O2 Flow Rate FiO2 01/03/17 07:46 37.0 56 18 107/69 93 2.0 01/03/17 07:39 66 18 91 Nasal Cannula 2.0 01/03/17 04:00 CPAP 1.5 01/03/17 03:18 36.8 58 20 93/55 97 CPAP I & O 24-Hour Column 01/03/17 08:00 Intake Total 2709 ml Output Total 1125 ml Balance 1584 ml Last Recorded Weight Weight (Kilograms): 133.800 Physical Exam General Appearance: no apparent distress Head: normocephalic, atraumatic Eyes: PERRL, EOMI Neck: no adenopathy, no JVD Respiratory/Chest: lungs clear, no respiratory distress Cardiovascular: + irregularly irregular Abdomen/GI: normal bowel sounds, non tender, soft Genitourinary - Male: + pertinent finding (rucker catheter draining clear yellow urine) Extremities/Musculoskelatal: no calf tenderness, + swelling (1+ pretibial pitting edema) Neurologic/Psych: alert, oriented x 3 Family History Negative for CKD / ESRD Social History Marital Status: Occupation: retired Retired. Originally from [employer]. [place]. 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 Never a smoker Laboratory Results Past 24 Hours 01/03/17 05:12 01/03/17 05:12 Test 01/02/17 12:00 01/02/17 12:11 01/02/17 16:01 01/02/17 20:46 Lactic Acid Level 1.9 mmol/L (0.4-2.0) Urine Color DK YELLOW Urine Appearance CLOUDY (CLEAR) Urine pH 5.0 (4.5-7.5) Urine Specific [place] 1.020 (1.000-1.030) Urine Protein 1+ (NEG) Urine Glucose (UA) NEG (NEG) Urine Ketones NEG (NEG) Urine Occult Blood 3+ (NEG) Urine Nitrite NEG (NEG) Urine Bilirubin NEG (NEG) Urine Urobilinogen NEG (NEG) Urine Leukocyte Esterase TRACE (NEG) Urine WBC (Auto) 5-10 /hpf (0-5) Urine RBC (Auto) >30 /hpf (0-4) Urine Hyaline Casts (Auto) 1-5 /lpf (0-5) Urine Epithelial Cells (Auto) 5-10 /lpf (0-5) Urine Bacteria (Auto) 1+ (NEG) Urine Yeast (Auto) (NONE PRSENT) Bedside Glucose 211 mg/dl (70-99) 215 mg/dl (70-99) 150 mg/dl (70-99) Test 01/03/17 05:12 01/03/17 06:09 01/03/17 06:31 Red Blood Count 3.07 M/uL (4.7-6.1) Mean Corpuscular Volume 94.1 fL (80-100) Mean Corpuscular Hemoglobin 31.3 pg (25-34) Mean Corpuscular Hemoglobin Concent 33.2 g/dl (32-36) RDW Standard Deviation 52.1 fL (36.4-46.3) RDW Coefficient of Variation 15.3 % (11.5-14.5) Mean Platelet Volume 10.0 fL (7.4-10.4) Prothrombin Time 30.5 SECONDS (9.0-12.0) Prothromb Time International Ratio 2.7 (0.9-1.1) Anion Gap 10.0 mmol/L (3-11) Est Creatinine Clear Calc Drug Dose 25.4 ml/min Estimated GFR () 20.7 Estimated GFR (Non- 17.9 BUN/Creatinine Ratio 25.8 (10-20) Estimated Average Glucose 148 mg/dl Hemoglobin A1c 6.8 % (4.5-5.6) Calcium Level 7.0 mg/dl (8.5-10.1) Creatine Kinase MB 4.0 ng/ml (0.5-3.6) Troponin I 0.190 ng/ml (0-0.045) Creatine Kinase MB Ratio (0-3.0) Bedside Glucose 131 mg/dl (70-99) Allergies Coded Allergies: Chlorpheniramine (Unverified Allergy, Unknown, ., 01/02/17) Phenylpropanolamine (Unverified Allergy, Unknown, ., 01/02/17) Medications Current Inpatient Medications Medications (Trade) Dose Ordered Sig/Sukhwinder Route Start Time Stop Time Status Last Admin Dose Admin Sodium Chloride (Nss 1000ml) 1,000 ml @ 80 mls/hr [id number] IV 01/02/17 09:24 02/01/17 09:23 01/03/17 05:53 80 MLS/HR Acetaminophen (Tylenol Tab) 650 mg Q4H PRN PO 01/02/17 09:30 02/01/17 09:29 Al Hydrox/Mg Hydrox/Simethicone (Maalox Max Susp) 15 ml Q4H PRN PO 01/02/17 09:30 02/01/17 09:29 Magnesium Hydroxide (Milk Of Magnesia Susp) 30 ml Q12H PRN PO 01/02/17 09:30 02/01/17 09:29 Ondansetron HCl (Zofran Inj) 4 mg Q6H PRN IV 01/02/17 09:30 02/01/17 09:29 Nitroglycerin (Nitrostat Tab) 0.4 mg UD PRN SL 01/02/17 09:30 02/01/17 09:29 Polyethylene 17 gm 17 gm DAILY PRN PO 01/02/17 09:30 02/01/17 09:29 Piperacillin Sod/ Tazobactam Sod/ Dextrose (Zosyn Iv/D5 100ml) 120 ml @ 30 mls/hr Q8H IV 01/02/17 16:00 01/16/17 15:59 01/03/17 09:05 30 MLS/HR Piperacillin Sod/ Tazobactam Sod (Consult) 1 ea UD PRN N/A 01/02/17 12:15 02/01/17 12:14 Albuterol/ Ipratropium (Duoneb) 3 ml QIDR INH 01/02/17 12:00 02/01/17 11:59 01/03/17 07:39 3 ML Levothyroxine Sodium (Synthroid Tab) 100 mcg DAILYBB PO 01/03/17 06:00 02/02/17 08:59 01/03/17 05:53 100 MCG Tamsulosin HCl (Flomax Cap) 0.4 mg DAILY PO 01/03/17 09:00 02/02/17 08:59 01/03/17 08:25 0.4 MG Warfarin Sodium (Coumadin Tab) 5 mg SuTuWeThFrSa@1600 PO 01/02/17 16:00 02/01/17 15:59 01/02/17 17:09 5 MG Nystatin (Mycostatin Powder) 1 appln BID EXT 01/02/17 21:00 02/01/17 20:59 01/02/17 20:57 1 APPLN Nystatin (Mycostatin Susp) 5 ml QID PO 01/02/17 13:00 01/12/17 12:59 01/03/17 08:26 5 ML Morphine Sulfate (MoRPHine SULFATE INJ) 2 mg Q4H PRN IV 01/02/17 09:30 01/16/17 09:29 01/03/17 04:43 2 MG Morphine Sulfate (MoRPHine SULFATE INJ) 4 mg Q4H PRN IV 01/02/17 09:30 01/16/17 09:29 01/02/17 10:02 4 MG Oxycodone HCl (Roxicodone Immediate Rel Tab) 10 mg Q6 PRN PO 01/02/17 09:30 01/16/17 09:29 01/03/17 07:42 10 MG Insulin Aspart (novoLOG ASPART) SLIDING SCALE PARAMETER ACHS SC 01/02/17 11:00 02/01/17 10:59 01/02/17 16:09 3 UNITS Insulin Glargine (Lantus Solostar Pen) 20 unit BID SC 01/02/17 21:00 02/01/17 20:59 01/03/17 08:31 20 UNIT Vancomycin HCl (Consult) 1 ea UD PRN N/A 01/02/17 10:00 02/01/17 09:59 Miconazole Nitrate (Desenex Powder) 1 appln DAILY EXT 01/03/17 09:00 02/02/17 08:59 01/03/17 07:43 1 APPLN Multi-Ingredient Ointment (Eucerin Unscented Cr) 1 appln DAILY EXT 01/03/17 09:00 02/02/17 08:59 01/02/17 13:28 1 APPLN Glucose (Glucose 40% Gel) 15-30 GRAMS 15 GRAMS... UD PRN PO 01/02/17 13:15 02/01/17 13:14 Glucose (Glucose Chew Tab) 4-8 Tablets 4 Tabl... UD PRN PO 01/02/17 13:15 02/01/17 13:14 Dextrose (Dextrose 50% 50ML Syringe) 25-50ML OF 50% DW IV FOR... UD PRN IV 01/02/17 13:15 02/01/17 13:14 Glucagon (Glucagon Inj) 1 mg UD PRN SQ 01/02/17 13:15 02/01/17 13:14 Warfarin Sodium (Coumadin Tab) 2.5 mg Mo@1600 PO 01/08/17 16:00 02/07/17 15:59 Impression (1) Acute kidney injury (2) Stage 3 chronic kidney disease (3) SIRS (systemic inflammatory response syndrome) (4) Hypotension (5) Cellulitis of left lower extremity (6) ASCVD (arteriosclerotic cardiovascular disease) (7) A-fib (8) Diabetes (9) Sleep apnea Mr. Avery was admitted to the hospital with LLE cellulitis, SIRS, relative hypotension and acute on chronic kidney injury. He has underlying diabetic nephropathy. His baseline creatinine has been 2.0. Blood cultures are currently pending. Urinalysis is positive for blood due to rucker catheter. Proteinuria is present c/w diabetic nephropathy. Patient has been started on empiric IV Vanco & Zosyn therapy PMH - AODM, BMI > 40, HTN, hyperlipidemia, ASCVD s/p CABG w/ AVR, chronic atrial fibrillation, EVENS, gout, kidney stones and recurrent UTI. Recommendations ACUTE KIDNEY INJURY: -- Hold Losartan and Furosemide -- Continue IV hydration -- Monitor serial PRP -- Will order renal US -- Will check urinalysis and UPCR CHRONIC KIDNEY DISEASE: -- Creatinine 2.0 due to diabetic nephropathy and microvascular disease HYPERTENSION: -- Patient remains relatively hypotensive. Continue to hold Losartan and Furosemide ANEMIA: -- Hgb is trending down. Monitor ID: -- Blood cutures + for S. Aureus. Patient is on Vanco / Zosyn as per primary service -- Await urine culture results
[2017-01-03] MEDS: NYSTATIN POWDER 15GM BTL EXT SCH ×2 (09:25→20:53)
[2017-01-03 09:41] LABS: URINE APPEARANCE TURBID (CLEAR); URINE COLOR ORANGE; URINE NITRITE POS (NEG); URINE SPECIFIC GRAVITY 1.025 (1.000-1.030); UROBILINOGEN NEG (NEG)
[2017-01-03 09:56] LABS: MANUAL MICROSCOPIC REQUIRED? NO; REVIEW REQ? YES; URINE BILIRUBIN NEG (NEG)
[2017-01-03 09:58] LABS: URINE PATH CASTS 0-3 GRANULAR CASTS /lpf (0)
[2017-01-03 10:30] LABS: URINE PROTIEN/CREAT RATIO 0.7 (0-0.2); URINE TOTAL PROTEIN 162.4 mg/dl (0-11.9)
--- NOTE | 2017-01-03 10:35 | Clinical Documentation Query ---
QUERY 1 OF [address] LINTON, In your clinical opinion is this patient being managed for: (X ) Sepsis ( ) Other explanation of clinical findings (Please Explain) ( ) Unable to determine (Please Define) ( ) Need to Discuss ( ) Not Agree The medical record reflects the following clinical findings, treatment, and risk factors. Clinical Indicators: 81 yo male presenting with intermittent fever over the past several days, reportedly ranging from high 90's to 102. Blood cultures x 2 preliminary results show S aureus. Hypotensive in ER with range of 78-100/39-52. H/P indicates SIRS likely from diabetic foot infection. Treatment:2250 cc total NSS bolus, continuous IV fluids, tele monitoring, IV zosyn, IV vancomycin, tylenol, nephrology and WOCN consults Risk Factors: age, DM with foot infection, CKD ICD 10 does not allow SIRS likely from a diabetic foot infection to be coded to Sepsis. QUERY 2 OF 2 In your clinical opinion is this patient being managed for: ( X ) Acute kidney failure with ATN ( ) Other explanation of clinical findings (Please Explain) ( ) Unable to determine (Please Define) ( ) Need to Discuss ( ) Not Agree The medical record reflects the following clinical findings, treatment, and risk factors. Clinical Indicators:81 yo male presenting with acute renal failure, diabetic foot infection. Repeated cath UA showed 0-3 granular casts. Presenting Cr 2.5 which has risen to 3.1 despite 2250 cc NSS bolus then continuous fluids. Treatment:nephrology consult, IV fluids, IV zosyn, IV vancomycin, tele monitoring, I/O, daily wts Risk Factors: DM with nephropathy, CKD, sepsis, A fib, hypotension Please clarify and document your clinical opinion in the progress notes and discharge summary. Terms such as "probable", "suspected", "likely", "questionable", "possible", or "still to be ruled out" are acceptable. IF IN AGREEMENT, YOU MUST DOCUMENT ABOVE DIAGNOSTIC STATEMENT IN DAILY PROGRESS NOTES AND DISCHARGE SUMMARY. This document is not part of the patient's record. Thank You, Alessandra Pink RN [phone]
--- NOTE | 2017-01-03 10:36 | Clinical Documentation Query ---
CLINICAL DOCUMENTATION QUERY Dr. THOMAS, In your clinical opinion is this patient being managed for: ( ) Acute kidney failure with ATN ( ) Other explanation of clinical findings (Please Explain) ( ) Unable to determine (Please Define) ( ) Need to Discuss ( ) Not Agree The medical record reflects the following clinical findings, treatment, and risk factors. Clinical Indicators:81 yo male presenting with acute renal failure, diabetic foot infection. Repeated cath UA showed 0-3 granular casts. Presenting Cr 2.5 which has risen to 3.1 despite 2250 cc NSS bolus then continuous fluids. Treatment:nephrology consult, IV fluids, IV zosyn, IV vancomycin, tele monitoring, I/O, daily wts Risk Factors: DM with nephropathy, CKD, sepsis, A fib, hypotension Please clarify and document your clinical opinion in the progress notes and discharge summary. Terms such as "probable", "suspected", "likely", "questionable", "possible", or "still to be ruled out" are acceptable. IF IN AGREEMENT, YOU MUST DOCUMENT ABOVE DIAGNOSTIC STATEMENT IN DAILY PROGRESS NOTES AND DISCHARGE SUMMARY. This document is not part of the patient's record. Thank You, Alessandra Pink, RN [phone]
--- NOTE | 2017-01-03 10:54 | DIAGNOSTIC IMAGING REPORT ---
ULTRASOUND KIDNEYS AND BLADDER CLINICAL HISTORY: Acute on chronic renal insufficiency. COMPARISON STUDY: Renal ultrasound dated 02/25/2016. TECHNIQUE: Real-time, grayscale, and color flow sonography of the kidneys and bladder is performed. Images are reviewed in the transverse and longitudinal planes. FINDINGS: Kidneys: The kidneys are atrophic. The right kidney measures 12.8 x 6.4 x 6.1 cm and the left kidney measures 11.4 x 6.5 x 5.8 cm. There is no hydronephrosis. No shadowing renal calculi are identified. There is no sonographic evidence of contour deforming renal mass lesion. A 9 cm exophytic cyst arises from the lower pole of the left kidney. No perinephric fluid is identified. Bladder: The bladder is decompressed around a Mckeon catheter and could not be evaluated. IMPRESSION: 1. The kidneys are atrophic and without hydronephrosis. 2. The bladder was decompressed around a Mckeon catheter and could not be assessed. Electronically signed by: Shadi Walton M.D. 01/03/2017 10:52 AM Dictated Date/Time: 01/03/2017 10:51 AM
--- NOTE | 2017-01-03 14:51 | Pharmacy Progress Note ---
Pharmacy Antibiotic Prog Note Date of Service Jan 03, 2017. Subjective The patient is currently receiving vancomycin and piperacillin/tazobactam IV for the treatment of a diabetic foot infection. The patient is currently on day # 2 of broad-spectrum IV antibiotic therapy. Objective Height (Feet): 5 Height (Inches): 9.00 Weight (Kilograms): 133.800 Levels: Item Value Date Time Random Vancomycin Level 12.1 mcg/ml 01/03/17 1050 Lab Results (24hrs): Laboratory Tests Test 01/03/17 05:12 BUN/Creatinine Ratio 25.8 Blood Urea Nitrogen 80 mg/dl Creatinine 3.10 mg/dl White Blood Count 10.73 K/uL Micro Results: Item Value Date Time Blood Culture - Final Complete 01/02/17 0740 Blood Staphylococcus Aureus Blood Culture - Preliminary Resulted 01/02/17 0745 Blood Staphylococcus Aureus Urine Culture - Preliminary Resulted 01/02/17 1211 Urine,Catheterized NO GROWTH - LESS THAN 1,000 COLONIES/... Recent Pertinent Medications Item Value Date Time Piperacillin Sod/ 4.5 gm 01/02/17 0752 Tazobactam Sod NOW STAT/IV 01/02/17 0835 (Zosyn Iv) ONE TIME DOSE Piperacillin Sod/ 120 ml @ 30 mls/hr 01/02/17 1600 Tazobactam Sod Q8H/IV 01/03/17 0905 4.5 gm/Dextrose CONTINUES Vancomycin HCl 540 ml @ 200 mls/hr 01/02/17 1000 2000 mg/Sodium TODAY@1000 ONCE/IV 01/02/17 1029 Chloride ONE TIME DOSE Assessment & Plan Assessment: * 81 y/o who is empirically being treated for sepsis r/t diabetic foot infection * Now with S. aureus bacteremia * Serum creatinine increased from 2.5--> 3.1mg/dL today * continue to monitor this, particularly in the setting of Zosyn/Vanco combination * With change in renal function, will elect to dose vancomycin per level in lieu of a set regimen Plan: * Continue Vancomycin and Zosyn Vancomycin * STAT random today 2/2 changing renal function * 12.1mcg/mL - time to re-dose vancomycin --Give vancomycin 2000 mg IV x1 dose -- Repeat random vanco with AM labs on 01/04 Zosyn * Continue 4.5g IV every 8 hours (infused over 4 hours per dose) * no dose adj until CrCl is below 20mL/min (continue to monitor for this) Pharmacy will continue to follow and will adjust dose/frequency as necessary. Thank you
[2017-01-03] MEDS ORDERED: VANCOMYCIN INJ 2,000 MG in SODIUM CHLORIDE 0.9% 500ML 500 ML IV ONE (15:00)
--- NOTE | 2017-01-03 15:06 | Progress Note ---
Subjective Date of Service: Jan 03, 2017. Subjective pt feels much better today , still weak and with some upper arm tremor and leg cramping foot remains reddened and swollen Problem List Medical Problems: (1) Cellulitis of left lower extremity Status: Acute (2) Sepsis Status: Acute Review of Systems Constitutional: + fatigue, + weakness, No chills, No fever Respiratory: No cough, No shortness of breath, No sputum, No wheezing Cardiac: + edema, No chest pain Abdomen: No diarrhea, No nausea, No pain, No vomiting Neurologic: No memory loss, No weakness Psychiatric: No anhedonism, No depression symptoms Objective Vital Signs Date Time Temp Pulse Resp B/P Pulse Ox O2 Delivery O2 Flow Rate FiO2 01/03/17 07:46 37.0 56 18 107/69 93 2.0 01/03/17 07:39 66 18 91 Nasal Cannula 2.0 01/03/17 04:00 CPAP 1.5 01/03/17 03:18 36.8 58 20 93/55 97 CPAP 01/02/17 23:59 CPAP 1.5 01/02/17 23:10 37.3 53 20 96/58 95 CPAP 01/02/17 20:10 37.4 53 23 93/51 99 Nasal Cannula 2.0 01/02/17 20:02 59 18 99 Nasal Cannula 2.0 01/02/17 20:00 Nasal Cannula 2.0 01/02/17 16:11 50 18 93 Nasal Cannula 2.0 01/02/17 16:00 Nasal Cannula 2.0 01/02/17 15:11 36.8 44 22 104/64 97 Nasal Cannula 2.0 01/02/17 12:00 Nasal Cannula 2.0 01/02/17 11:49 36.8 67 24 91/52 95 Nasal Cannula 2.0 01/02/17 11:18 55 24 95/41 96 Nasal Cannula 2.0 01/02/17 10:25 37.5 59 22 100/41 96 Nasal Cannula 2.0 01/02/17 09:54 96 Nasal Cannula 2.0 01/02/17 09:20 59 24 78/53 96 Nasal Cannula 2.0 01/02/17 08:38 61 22 83/39 92 Nasal Cannula 2.0 01/02/17 07:55 62 Physical Exam General Appearance: WD/WN, + mild distress Neck: supple, no JVD Respiratory/Chest: chest non-tender, lungs clear, normal breath sounds Cardiovascular: regular rate, rhythm, + systolic murmur Abdomen: normal bowel sounds, non tender, soft Extremities: + pedal edema, + swelling, + pertinent finding (open areas to left toes) Neurologic/Psychiatric: alert, oriented x 3 Laboratory Results Last 24 Hours Test 01/02/17 07:52 01/02/17 07:54 01/02/17 12:00 01/02/17 12:11 Bedside Lactic Acid Venous 1.31 mmol/L Bedside Troponin I 0.110 ng/ml HF-[id number] Natriuretic Peptide 22847 pg/ml Lactic Acid Level 1.9 mmol/L Urine Color DK YELLOW Urine Appearance CLOUDY Urine pH 5.0 Urine Specific [place] 1.020 Urine Protein 1+ Urine Glucose (UA) NEG Urine Ketones NEG Urine Occult Blood 3+ Urine Nitrite NEG Urine Bilirubin NEG Urine Urobilinogen NEG Urine Leukocyte Esterase TRACE Urine WBC (Auto) 5-10 /hpf Urine RBC (Auto) >30 /hpf Urine Hyaline Casts (Auto) 1-5 /lpf Urine Epithelial Cells (Auto) 5-10 /lpf Urine Bacteria (Auto) 1+ Urine Yeast (Auto) Bedside Glucose 211 mg/dl Test 01/02/17 16:01 01/02/17 20:46 01/03/17 05:12 01/03/17 06:09 Bedside Glucose 215 mg/dl 150 mg/dl White Blood Count 10.73 K/uL Red Blood Count 3.07 M/uL Hemoglobin 9.6 g/dL Hematocrit 28.9 % Mean Corpuscular Volume 94.1 fL Mean Corpuscular Hemoglobin 31.3 pg Mean Corpuscular Hemoglobin Concent 33.2 g/dl RDW Standard Deviation 52.1 fL RDW Coefficient of Variation 15.3 % Platelet Count 162 K/uL Mean Platelet Volume 10.0 fL Prothrombin Time 30.5 SECONDS Prothromb Time International Ratio 2.7 Sodium Level 137 mmol/L Potassium Level 5.0 mmol/L Chloride Level 107 mmol/L Carbon Dioxide Level 20 mmol/L Anion Gap 10.0 mmol/L Blood Urea Nitrogen 80 mg/dl Creatinine 3.10 mg/dl Est Creatinine Clear Calc Drug Dose 25.4 ml/min Estimated GFR () 20.7 Estimated GFR (Non- 17.9 BUN/Creatinine Ratio 25.8 Random Glucose 126 mg/dl Estimated Average Glucose 148 mg/dl Hemoglobin A1c 6.8 % Calcium Level 7.0 mg/dl Creatine Kinase MB 4.0 ng/ml Troponin I 0.190 ng/ml Creatine Kinase MB Ratio Test 01/03/17 06:31 Bedside Glucose 131 mg/dl Assessment and Plan 81-year-old male here with SIRS likely from diabetic foot infection, acute on chronic renal failure and chronic respiratory failure with nocturnal hypoxia requiring CPAP at 11 cm. SIRS, 2 OF 2 blood cultures with gram positive cocci Zosyn and vancomycin once ID and sensitivities will likely streamline to gram positive Fungal infection, oral and panniculitis candidal Nystatin swish and swallow and topical Nystatin powder. Diabetic foot abrasions and likely portals of infection. wound care consultation for topical care. antihypertensive medications of Coreg, losartan and Lasix are held. lactic acid not elevated, additional fluid bolus given chronic respiratory failure, DuoNebs q.i.d. respiratory with CPAP at night with oxygen bleed-in. Regarding his anticoagulation continues to be therapeutic, checking daily PT/ INRs. diabetes holding lispro 75/25 and converted to Lantus 20 b.i.d. with insulin sliding scale and pharmacy adjustment. DVT prevention warfarin. HE IS A FULL CODE.
[2017-01-03] MEDS: WARFARIN SOD 5 MG TAB PO SCH (17:24)
[2017-01-04] VITALS (13 sets, daily range): BP systolic 95–133; BP diastolic 46–81; PULSE 47–66; TEMP 36.4–37.3; O2SAT 91–99
[2017-01-04] MEDS: LEVOTHYROXINE 100 MCG TAB PO SCH (06:04)
[2017-01-04 07:10] LABS: PROTHROMBIN TIME (PATIENT) 50.5 SECONDS (9.0-12.0)
[2017-01-04 07:14] LABS: INR 4.4 (0.9-1.1)
[2017-01-04 07:28] LABS: BUN/CREATININE RATIO 27.1 (10-20); CALCIUM 7.1 mg/dl (8.5-10.1); CREATININE 3.6 mg/dl (0.60-1.40); POTASSIUM 5.1 mmol/L (3.5-5.1)
[2017-01-04] MEDS: MICONAZOLE NITRATE POWDER 43 GM EXT SCH (08:27)
[2017-01-04] MEDS: EUCERIN CR 120 GM JAR EXT SCH (08:28)
[2017-01-04] MEDS: NYSTATIN POWDER 15GM BTL EXT SCH ×2 (08:28→20:09)
[2017-01-04] MEDS: TAMSULOSIN HCL 0.4 MG CAP PO SCH (08:29)
[2017-01-04] MEDS: NYSTATIN SUSP 500,000 U/5 ML UDC PO SCH ×4 (08:29→20:09)
[2017-01-04] MEDS: INSULIN ASPART 100 UNITS/ML 3 ML PEN SC SCH ×4 (08:30→21:27)
[2017-01-04] MEDS: INSULIN GLARGINE SOLOSTAR 100 UNITS/ML 3 ML PEN SC SCH ×2 (08:31→21:27)
--- NOTE | 2017-01-04 10:19 | Pharmacy Progress Note ---
Pharmacy Antibiotic Prog Note Date of Service Jan 04, 2017. Subjective The patient is currently receiving vancomycin based upon levels for DM foot infection, now with positive blood cultures The patient is currently on day #3 of IV therapy. Objective Height (Feet): 5 Height (Inches): 9.00 Weight (Kilograms): 136.800 Levels: Item Value Date Time Random Vancomycin Level 22.8 mcg/ml 01/04/17 0625 Random Vancomycin Level 12.1 mcg/ml 01/03/17 1050 Lab Results (24hrs): Laboratory Tests Test 01/04/17 06:25 BUN/Creatinine Ratio 27.1 Blood Urea Nitrogen 97 mg/dl Creatinine 3.60 mg/dl Micro Results: Item Value Date Time Urine Culture - Final Complete 01/02/17 1211 Urine,Catheterized NO GROWTH - LESS THAN 1,000 COLONIES/ML Blood Culture - Preliminary Resulted 01/02/17 0745 Blood Staphylococcus Aureus Blood Culture - Final Complete 01/02/17 0740 Blood Staphylococcus Aureus Assessment & Plan Patient is receiving vancomycin for DM foot infection, now with positive blood cultures. [place] padron vt'ed today. ID is following this patient. Vancomycin: * Random level this am was ~22 mcg/ml (goal 15-20 mcg/ml for bacteremia) * Will continue to dose based upon levels due to unstable renal function. Scr continues to increase further today from 3.1 to 3.6 mg/dL (CrCl~22 ml/min) * Based upon random level this am will give a vancomycin 1000 mg x 1 today, when estimated level <20 mcg/ml * Will order a random level tomorrow am to assist with further dosing, estimated level tomorrow am still >15 mcg/ml Pharmacy will continue to follow and will adjust dose/frequency as necessary. Thank you
--- NOTE | 2017-01-04 10:19 | Nephrology Progress Note ---
Nephrology Progress Note Date of Service Jan 04, 2017. Chief Complaint Evaluation of acute on chronic kidney injury Subjective Mr. Avery was seen & examined in the PCU this morning. He had a low grade fever overnight. His blood cultures are positive for MRSA. He is tolerating gentle hydration without dyspnea. Review of Systems Constitutional: + fever Cardiovascular: No chest pain Respiratory: No dyspnea at rest Abdomen: No nausea, No pain, No vomiting Extremities: No leg edema A complete review of systems was performed. Pertinent positives are noted above. All other systems are negative. Vital Signs Last 8 Hrs Date Time Temp Pulse Resp B/P Pulse Ox O2 Delivery O2 Flow Rate FiO2 01/04/17 07:26 37.0 59 18 95/52 93 2.0 01/04/17 07:07 66 18 92 Nasal Cannula 2.0 01/04/17 04:02 36.9 58 18 104/64 93 Room Air 01/04/17 04:00 91 BiPAP 3.0 I & O 24-Hour Column 01/04/17 08:00 Intake Total 4397 ml Output Total 650 ml Balance 3747 ml Last Recorded Weight Weight (Kilograms): 136.800 Physical Exam General Appearance: no apparent distress Head: normocephalic, atraumatic Eyes: PERRL, EOMI Neck: no adenopathy Respiratory/Chest: lungs clear, no respiratory distress Cardiovascular: regular rate, rhythm Abdomen/GI: normal bowel sounds, non tender, soft Extremities/Musculoskelatal: no calf tenderness, no pedal edema, + pertinent finding (left second toe with clean dry dressing in place) Neurologic/Psych: alert, oriented x 3 Family History Negative for CKD / ESRD Social History Marital Status: Occupation: retired Retired. Originally from [place]. 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 Never a smoker Laboratory Results Past 24 Hours 01/04/17 06:25 Test 01/03/17 10:50 01/03/17 11:24 01/03/17 15:41 01/03/17 19:57 Random Vancomycin Level 12.1 mcg/ml Bedside Glucose 188 mg/dl (70-99) 202 mg/dl (70-99) 220 mg/dl (70-99) Test 01/04/17 06:25 01/04/17 06:41 Prothrombin Time 50.5 SECONDS (9.0-12.0) Prothromb Time International Ratio 4.4 (0.9-1.1) Anion Gap 11.0 mmol/L (3-11) Est Creatinine Clear Calc Drug Dose 22.1 ml/min Estimated GFR () 17.3 Estimated GFR (Non- 14.9 BUN/Creatinine Ratio 27.1 (10-20) Calcium Level 7.1 mg/dl (8.5-10.1) Troponin I 0.184 ng/ml (0-0.045) Random Vancomycin Level 22.8 mcg/ml Bedside Glucose 161 mg/dl (70-99) Allergies Coded Allergies: Chlorpheniramine (Unverified Allergy, Unknown, ., 01/02/17) Phenylpropanolamine (Unverified Allergy, Unknown, ., 01/02/17) Medications Current Inpatient Medications Medications (Trade) Dose Ordered Sig/Sukhwinder Route Start Time Stop Time Status Last Admin Dose Admin Sodium Chloride (Nss 1000ml) 1,000 ml @ 80 mls/hr [id number] IV 01/02/17 09:24 02/01/17 09:23 01/03/17 23:30 80 MLS/HR Acetaminophen (Tylenol Tab) 650 mg Q4H PRN PO 01/02/17 09:30 02/01/17 09:29 Al Hydrox/Mg Hydrox/Simethicone (Maalox Max Susp) 15 ml Q4H PRN PO 01/02/17 09:30 02/01/17 09:29 Magnesium Hydroxide (Milk Of Magnesia Susp) 30 ml Q12H PRN PO 01/02/17 09:30 02/01/17 09:29 Ondansetron HCl (Zofran Inj) 4 mg Q6H PRN IV 01/02/17 09:30 02/01/17 09:29 Nitroglycerin (Nitrostat Tab) 0.4 mg UD PRN SL 01/02/17 09:30 02/01/17 09:29 Polyethylene (Miralax Powder Packet) 17 gm DAILY PRN PO 01/02/17 09:30 02/01/17 09:29 Albuterol/ Ipratropium (Duoneb) 3 ml QIDR INH 01/02/17 12:00 02/01/17 11:59 01/03/17 19:48 3 ML Levothyroxine Sodium (Synthroid Tab) 100 mcg DAILYBB PO 01/03/17 06:00 02/02/17 08:59 01/04/17 06:04 100 MCG Tamsulosin HCl (Flomax Cap) 0.4 mg DAILY PO 01/03/17 09:00 02/02/17 08:59 01/04/17 08:29 0.4 MG Warfarin Sodium (Coumadin Tab) 5 mg [id number]@1600 PO 01/02/17 16:00 02/01/17 15:59 Future Hold 01/03/17 17:24 5 MG Nystatin (Mycostatin Powder) 1 appln BID EXT 01/02/17 21:00 02/01/17 20:59 01/04/17 08:28 1 APPLN Nystatin (Mycostatin Susp) 5 ml QID PO 01/02/17 13:00 01/12/17 12:59 01/04/17 08:29 5 ML Morphine Sulfate (MoRPHine SULFATE INJ) 2 mg Q4H PRN IV 01/02/17 09:30 01/16/17 09:29 01/03/17 21:04 2 MG Morphine Sulfate (MoRPHine SULFATE INJ) 4 mg Q4H PRN IV 01/02/17 09:30 01/16/17 09:29 01/02/17 10:02 4 MG Oxycodone HCl (Roxicodone Immediate Rel Tab) 10 mg Q6 PRN PO 01/02/17 09:30 01/16/17 09:29 01/03/17 07:42 10 MG Insulin Aspart (novoLOG ASPART) SLIDING SCALE PARAMETER ACHS SC 01/02/17 11:00 02/01/17 10:59 01/04/17 08:30 1 UNITS Insulin Glargine (Lantus Solostar Pen) 20 unit BID SC 01/02/17 21:00 02/01/17 20:59 01/04/17 08:31 20 UNIT Vancomycin HCl (Consult) 1 ea UD PRN N/A 01/02/17 10:00 02/01/17 09:59 Miconazole Nitrate (Desenex Powder) 1 appln DAILY EXT 01/03/17 09:00 02/02/17 08:59 01/04/17 08:27 1 APPLN Multi-Ingredient Ointment (Eucerin Unscented Cr) 1 appln DAILY EXT 01/03/17 09:00 02/02/17 08:59 01/04/17 08:28 1 APPLN Glucose (Glucose 40% Gel) 15-30 GRAMS 15 GRAMS... UD PRN PO 01/02/17 13:15 02/01/17 13:14 Glucose (Glucose Chew Tab) 4-8 Tablets 4 Tabl... UD PRN PO 01/02/17 13:15 02/01/17 13:14 Dextrose (Dextrose 50% 50ML Syringe) 25-50ML OF 50% DW IV FOR... UD PRN IV 01/02/17 13:15 02/01/17 13:14 Glucagon (Glucagon Inj) 1 mg UD PRN SQ 01/02/17 13:15 02/01/17 13:14 Impression (1) Acute kidney injury (2) Stage 3 chronic kidney disease (3) SIRS (systemic inflammatory response syndrome) (4) Hypotension (5) Cellulitis of left lower extremity (6) ASCVD (arteriosclerotic cardiovascular disease) (7) A-fib (8) Diabetes (9) Sleep apnea Mr. Avery was admitted to the hospital with LLE cellulitis, SIRS, relative hypotension and acute on chronic kidney injury. He has underlying diabetic nephropathy. His baseline creatinine has been 2.0. Blood cultures are currently pending. Urinalysis is positive for blood due to rucker catheter. Proteinuria is present c/w diabetic nephropathy. Patient has been started on empiric IV Vanco & Zosyn therapy PMH - AODM, BMI > 40, HTN, hyperlipidemia, ASCVD s/p CABG w/ AVR, chronic atrial fibrillation, [place], gout, kidney stones and recurrent UTI. Recommendations ACUTE KIDNEY INJURY: -- Patient remains in the injury phase of ATN -- Patient still has relative hypotension. Hold Losartan and Furosemide -- Continue IV hydration -- Monitor serial PRP -- Renal US report reviewed today: 9 cm cyst arising from lower pole of the left kidney. No obstruction. -- Urinalysis shows granular casts c/w ATN. UPCR 0.7 CHRONIC KIDNEY DISEASE: -- Creatinine 2.0 due to diabetic nephropathy and microvascular disease HYPERTENSION: -- Patient remains relatively hypotensive. Continue to hold Losartan and Furosemide ANEMIA: -- Hgb is trending down. Monitor ID: -- Blood cutures + for MRSA. Patient is on Vanco / Zosyn as per primary service -- Urine cultures are negative
--- NOTE | 2017-01-04 10:22 | Medical Consult ---
Consultation Date of Consultation: Jan 04, 2017. Attending Physician: Shakeel Tanner M.D. Reason for Consultation: MRSA sepsis History of Present Illness 81-year-old male with history of insulin-dependent diabetes mellitus, status post aortic valve replacement, who has been under the care of a dishtank operator for a left 3rd toe ulceration. For approximately 3 days prior to admission, patient began to experience high fevers along with weakness, chills, and cough without sputum production. He finally came to the emergency department where he was found to have evidence of early sepsis, with infection of the [place] [address]. he was started empirically on vancomycin and Zosyn, and now blood cultures are reported positive for MRSA. He is awaiting echocardiogram. He also has been complaining of rash below his abdominal pannus. Past Medical/Surgical History Medical Problems: (1) Cellulitis of left lower extremity Status: Acute (2) Sepsis Status: Acute Medical Problems: (1) A-fib (2) Acute kidney injury (3) Anemia (4) ASCVD (arteriosclerotic cardiovascular disease) (5) CHF (congestive heart failure) (6) COPD (chronic obstructive pulmonary disease) (7) Dermatitis, seborrheic (8) Diabetes (9) Elevated alkaline phosphatase level (10) Elevated LFTs (11) Hyperlipidemia (12) Hypertension (13) Hypotension (14) Hypothyroid (15) Ichthyosis (16) Painful diabetic neuropathy (17) Pulmonary hypertension (18) Secondary hyperparathyroidism (19) SIRS (systemic inflammatory response syndrome) (20) Sleep apnea (21) Stage 3 chronic kidney disease Surgical Problems: (1) Hx of CABG Family History Noncontributory Social History Smoking Status: Never Smoker Marital Status: Housing Status: lives with significant other Occupation Status: retired Allergies Coded Allergies: Chlorpheniramine (Unverified Allergy, Unknown, ., 01/02/17) Phenylpropanolamine (Unverified Allergy, Unknown, ., 01/02/17) Current Inpatient Medications Current Inpatient Medications Medications (Trade) Dose Ordered Sig/Sukhwinder Route Start Time Stop Time Status Last Admin Dose Admin Sodium Chloride (Nss 1000ml) 1,000 ml @ 80 mls/hr [id number] IV 01/02/17 09:24 02/01/17 09:23 01/03/17 23:30 80 MLS/HR Acetaminophen (Tylenol Tab) 650 mg Q4H PRN PO 01/02/17 09:30 02/01/17 09:29 Al Hydrox/Mg Hydrox/Simethicone (Maalox Max Susp) 15 ml Q4H PRN PO 01/02/17 09:30 02/01/17 09:29 Magnesium Hydroxide (Milk Of Magnesia Susp) 30 ml Q12H PRN PO 01/02/17 09:30 02/01/17 09:29 Ondansetron HCl (Zofran Inj) 4 mg Q6H PRN IV 01/02/17 09:30 02/01/17 09:29 Nitroglycerin (Nitrostat Tab) 0.4 mg UD PRN SL 01/02/17 09:30 02/01/17 09:29 Polyethylene (Miralax Powder Packet) 17 gm DAILY PRN PO 01/02/17 09:30 02/01/17 09:29 Albuterol/ Ipratropium (Duoneb) 3 ml QIDR INH 01/02/17 12:00 02/01/17 11:59 01/03/17 19:48 3 ML Levothyroxine Sodium (Synthroid Tab) 100 mcg DAILYBB PO 01/03/17 06:00 02/02/17 08:59 01/04/17 06:04 100 MCG Tamsulosin HCl (Flomax Cap) 0.4 mg DAILY PO 01/03/17 09:00 02/02/17 08:59 01/04/17 08:29 0.4 MG Warfarin Sodium (Coumadin Tab) 5 mg SuTuWeThFrSa@1600 PO 01/02/17 16:00 02/01/17 15:59 Future Hold 01/03/17 17:24 5 MG Nystatin (Mycostatin Powder) 1 appln BID EXT 01/02/17 21:00 02/01/17 20:59 01/04/17 08:28 1 APPLN Nystatin (Mycostatin Susp) 5 ml QID PO 01/02/17 13:00 01/12/17 12:59 01/04/17 08:29 5 ML Morphine Sulfate (MoRPHine SULFATE INJ) 2 mg Q4H PRN IV 01/02/17 09:30 01/16/17 09:29 01/03/17 21:04 2 MG Morphine Sulfate (MoRPHine SULFATE INJ) 4 mg Q4H PRN IV 01/02/17 09:30 01/16/17 09:29 01/02/17 10:02 4 MG Oxycodone HCl (Roxicodone Immediate Rel Tab) 10 mg Q6 PRN PO 01/02/17 09:30 01/16/17 09:29 01/03/17 07:42 10 MG Insulin Aspart (novoLOG ASPART) SLIDING SCALE PARAMETER ACHS SC 01/02/17 11:00 02/01/17 10:59 01/04/17 08:30 1 UNITS Insulin Glargine (Lantus Solostar Pen) 20 unit BID SC 01/02/17 21:00 02/01/17 20:59 01/04/17 08:31 20 UNIT Vancomycin HCl (Consult) 1 ea UD PRN N/A 01/02/17 10:00 02/01/17 09:59 Miconazole Nitrate (Desenex Powder) 1 appln DAILY EXT 01/03/17 09:00 02/02/17 08:59 01/04/17 08:27 1 APPLN Multi-Ingredient Ointment (Eucerin Unscented Cr) 1 appln DAILY EXT 01/03/17 09:00 02/02/17 08:59 01/04/17 08:28 1 APPLN Glucose (Glucose 40% Gel) 15-30 GRAMS 15 GRAMS... UD PRN PO 01/02/17 13:15 02/01/17 13:14 Glucose (Glucose Chew Tab) 4-8 Tablets 4 Tabl... UD PRN PO 01/02/17 13:15 02/01/17 13:14 Dextrose (Dextrose 50% 50ML Syringe) 25-50ML OF 50% DW IV FOR... UD PRN IV 01/02/17 13:15 02/01/17 13:14 Glucagon 1 mg 1 mg UD PRN SQ 01/02/17 13:15 02/01/17 13:14 Vancomycin HCl/ Sodium Chloride (Vancomycin Inj/ Nss 250ml) 270 ml @ 125 mls/hr TODAY@1500 ONCE IV 01/04/17 15:00 01/04/17 17:09 Review of Systems Constitutional: + fever, + weakness Eyes: No problem reported ENT: No problem reported Respiratory: + cough Cardiovascular: No problem reported Abdomen: No problem reported Musculoskeletal: + swelling Genitourinary - Male: No problem reported Neurologic: + weakness Psychiatric: No problem reported Endocrine: No problem reported Hematologic / Lymphatic: No problem reported Integumentary: + new/changing skin lesions Allergic / Immunologic: No problem reported Physical Exam Date Time Temp Pulse Resp B/P Pulse Ox O2 Delivery O2 Flow Rate FiO2 01/04/17 07:26 37.0 59 18 95/52 93 2.0 01/04/17 07:07 66 18 92 Nasal Cannula 2.0 01/04/17 04:02 36.9 58 18 104/64 93 Room Air 01/04/17 04:00 91 BiPAP 3.0 01/04/17 00:01 91 BiPAP 3.0 01/03/17 23:20 37.0 50 16 110/56 95 CPAP 01/03/17 21:26 36.8 01/03/17 20:00 Nasal Cannula 3.0 01/03/17 19:50 38.0 56 18 107/63 92 Nasal Cannula 2.0 01/03/17 19:48 63 18 91 Nasal Cannula 2.0 01/03/17 16:00 Nasal Cannula 3.0 01/03/17 15:41 66 18 92 Nasal Cannula 2.0 01/03/17 14:51 36.6 63 19 102/54 97 Nasal Cannula 2.0 01/03/17 12:00 Nasal Cannula 2.0 01/03/17 11:20 66 18 91 Nasal Cannula 2.0 01/03/17 11:09 37.4 75 18 148/71 98 2.0 General Appearance: WD/WN, no apparent distress Head: normocephalic, atraumatic Eyes: normal inspection, EOMI, sclerae normal ENT: normal ENT inspection, pharynx normal Neck: supple, no adenopathy, thyroid normal, trachea midline Respiratory/Chest: chest non-tender, lungs clear, normal breath sounds, no respiratory distress Cardiovascular: regular rate, rhythm, no gallop, + systolic murmur Abdomen/GI: normal bowel sounds, non tender, soft, no organomegaly Back: normal inspection, no CVA tenderness Extremities/Musculoskelatal: no calf tenderness, + inflammation, + swelling Neurologic/Psych: alert, oriented x 3 Skin: normal color, no rash, + pertinent finding (abrasions left 2nd, 3rd toes with eryhtema proximally to nolan) Lymphatic: no adenopathy Laboratory Results RUN DATE: 01/04/17 [facility] LAB PAGE 1 RUN TIME: 815 Specimen Inquiry PATIENT: SUE MANCINI III LOC: Jean U # : [id number] AGE/SX: 81/M ROOM: 30 REG : 01/02/[address]: Shakeel Tanner M : 1935 BED: 2 DIS : STATUS: ADM IN TLOC: SPEC #: [id number] CHANTAL: 01/02/17 STATUS: RES REQ #: [id number] RECD: 01/02/[address]: Houston Luis M.D. SOURCE: BLOOD ENTR: 01/02/[address] [facility] DR: Winston Harper M.D. SPDESC: ORDERED: BLOOD CULTURE COMMENTS: Comments to Director [employer] SAME TIME DIFFERENT SITES Procedure Result Verified Site BLD CULT Preliminary 01/04/17-0816 Organism 1 STAPHYLOCOCCUS AUREUS SENS SENSITIVITY TO FOLLOW SENSITIVITY RESULT INDICATES A METHICILLIN RESISTANT STAPH. AUREUS. PHONED TO RICHARD ALEXANDRA ON 01/04/17 AT 0815 BY Blanca Puentes. Results were verbalized back to GINA. RESULTS WERE ALSO CALLED TO [facility] INFECTION CONTROL ANSWERING MACHINE ON 01/04/17 BY GINA. Phoned Positive Blood Culture Gram Stain Report to CHRISTIANO EL on 01/02/17 At 4503 By SHARMAINE. Results were verbalized back to SHARMAINE. 1. STAPHYLOCOCCUS AUREUS Target Route Dose RX AB Cost M.I.C. IQ ------ ----- ------ -- ------ -------- - ------ TRIMET/SULFA S <=0.5/ 9.5 * OXACILLIN R * >2 VANCOMYCIN S 1 ERYTHROMYCIN R >4 TETRACYCLINE S <=4 CLINDAMYCIN R <=0.5 DAPTOMYCIN S <=0.5 RIFAMPIN S <=1 S = SENSITIVE I = INTERMEDIATE R = RESISTANT END OF REPORT Last 24 Hours Test 01/03/17 10:50 01/03/17 11:24 01/03/17 15:41 01/03/17 19:57 Random Vancomycin Level 12.1 mcg/ml Bedside Glucose 188 mg/dl 202 mg/dl 220 mg/dl Test 01/04/17 06:25 01/04/17 06:41 Prothrombin Time 50.5 SECONDS Prothromb Time International Ratio 4.4 Sodium Level 136 mmol/L Potassium Level 5.1 mmol/L Chloride Level 107 mmol/L Carbon Dioxide Level 18 mmol/L Anion Gap 11.0 mmol/L Blood Urea Nitrogen 97 mg/dl Creatinine 3.60 mg/dl Est Creatinine Clear Calc Drug Dose 22.1 ml/min Estimated GFR () 17.3 Estimated GFR (Non- 14.9 BUN/Creatinine Ratio 27.1 Random Glucose 159 mg/dl Calcium Level 7.1 mg/dl Troponin I 0.184 ng/ml Random Vancomycin Level 22.8 mcg/ml Bedside Glucose 161 mg/dl [~ rep ct add3]] CHEST ONE VIEW PORTABLE CLINICAL HISTORY: CHEST PAIN dyspnea COMPARISON STUDY: No previous studies for comparison. FINDINGS: Moderate cardiomegaly. Lungs are clear. Diaphragms smooth. IMPRESSION: Cardiomegaly. Otherwise negative study Electronically signed by: Tian Machado M.D. 01/02/2017 8:08 AM Dictated Date/Time: 01/02/2017 8:07 AM Assessment & Plan 81 yo male with MRSA sepsis likely from left foot and leg infection associated with DM with neuropathy and now with CARLO. Vancomycin appropriate therapy for now , with length of therapy yet to be determined. Await echocardiogram given risk for endocarditis. Case discussed with Dr. Tanner. Will follow.
[2017-01-04] MEDS ORDERED: PERFLUTREN LIPID MICROSPHERE (DEFINITY) IV ONE (10:32)
[2017-01-04] MEDS: ALBUT/IPRATROP 3MG/0.5MG NEB 3 ML VIAL INH SCH ×3 (11:30→19:30)
[2017-01-04] MEDS ORDERED: FUROSEMIDE INJ 20 MG in SYRINGE 0 ML IV ONE (12:30)
--- NOTE | 2017-01-04 14:25 | Progress Note ---
Subjective Date of Service: Jan 04, 2017. Subjective pt is a bit short of breath and with some peripheral edema worsened on exam, has increase in Cr again today Problem List Medical Problems: (1) Cellulitis of left lower extremity Status: Acute (2) Sepsis Status: Acute Review of Systems Constitutional: + fatigue, + weakness, No chills, No fever Respiratory: + cough, + dyspnea on exertion, + shortness of breath Cardiac: + edema, No chest pain Abdomen: No diarrhea, No nausea, No pain, No vomiting Musculoskeletal: + joint pain, + muscle pain Male : + hematuria, No dysuria Psychiatric: No anhedonism, No depression symptoms Skin: + new/changing skin lesions, + rash Objective Vital Signs Date Time Temp Pulse Resp B/P Pulse Ox O2 Delivery O2 Flow Rate FiO2 01/04/17 07:26 37.0 59 18 95/52 93 2.0 01/04/17 07:07 66 18 92 Nasal Cannula 2.0 01/04/17 04:02 36.9 58 18 104/64 93 Room Air 01/04/17 04:00 91 BiPAP 3.0 01/04/17 00:01 91 BiPAP 3.0 01/03/17 23:20 37.0 50 16 110/56 95 CPAP 01/03/17 21:26 36.8 01/03/17 20:00 Nasal Cannula 3.0 01/03/17 19:50 38.0 56 18 107/63 92 Nasal Cannula 2.0 01/03/17 19:48 63 18 91 Nasal Cannula 2.0 01/03/17 16:00 Nasal Cannula 3.0 01/03/17 15:41 66 18 92 Nasal Cannula 2.0 01/03/17 14:51 36.6 63 19 102/54 97 Nasal Cannula 2.0 01/03/17 12:00 Nasal Cannula 2.0 01/03/17 11:20 66 18 91 Nasal Cannula 2.0 01/03/17 11:09 37.4 75 18 148/71 98 2.0 01/03/17 08:00 Nasal Cannula 2.0 01/03/17 07:46 37.0 56 18 107/69 93 2.0 Physical Exam General Appearance: + moderate distress, + obese Neck: supple, + JVD Respiratory/Chest: chest non-tender, + decreased breath sounds, + accessory muscle use, + rales Cardiovascular: regular rate, rhythm, + systolic murmur Abdomen: normal bowel sounds, non tender, soft Extremities: + pedal edema, + swelling Neurologic/Psychiatric: alert, oriented x 3 Laboratory Results Last 24 Hours Test 01/03/17 09:20 01/03/17 10:50 01/03/17 11:24 01/03/17 15:41 Urine Color ORANGE Urine Appearance TURBID Urine pH 5.0 Urine Specific [place] 1.025 Urine Protein 2+ Urine Glucose (UA) NEG Urine Ketones NEG Urine Occult Blood 3+ Urine Nitrite POS Urine Bilirubin NEG Urine Urobilinogen NEG Urine Leukocyte Esterase MODERATE Urine WBC (Auto) >30 /hpf Urine RBC (Auto) >30 /hpf Urine Hyaline Casts (Auto) 5-10 /lpf Urine Epithelial Cells (Auto) 10-20 /lpf Urine Bacteria (Auto) NEG Urine Pathogenic Casts 0-3 GRANULAR CASTS /lpf Urine Yeast (Auto) Urine Random Creatinine 250.0 mg/dl Urine Random Total Protein 162.4 mg/dl Urine Protein/Creatinine Ratio 0.7 Random Vancomycin Level 12.1 mcg/ml Bedside Glucose 188 mg/dl 202 mg/dl Test 01/03/17 19:57 01/04/17 06:25 01/04/17 06:41 Bedside Glucose 220 mg/dl 161 mg/dl Prothrombin Time 50.5 SECONDS Prothromb Time International Ratio 4.4 Sodium Level 136 mmol/L Potassium Level 5.1 mmol/L Chloride Level 107 mmol/L Carbon Dioxide Level 18 mmol/L Anion Gap 11.0 mmol/L Blood Urea Nitrogen 97 mg/dl Creatinine 3.60 mg/dl Est Creatinine Clear Calc Drug Dose 22.1 ml/min Estimated GFR () 17.3 Estimated GFR (Non- 14.9 BUN/Creatinine Ratio 27.1 Random Glucose 159 mg/dl Calcium Level 7.1 mg/dl Troponin I 0.184 ng/ml Random Vancomycin Level 22.8 mcg/ml Assessment and Plan 81-year-old male here with SEPSIS likely from diabetic foot infection, atn AND acute on chronic renal failure and chronic respiratory failure with nocturnal hypoxia requiring CPAP at 11 cm. Sepsis from MRSA, vancomycin with pharmacy dosing and worsening renal failure( daptomycin?), since aortic valve replacement will have TTE to eval for vegs, and ID consult to recomment duration of antibiotics and likely choice( decision for PICC and outpt treatment) Fungal infection, oral and panniculitis candidal-improving continue Nystatin swish and swallow and topical Nystatin powder. Diabetic foot abrasions and likely portals of infection. wound care consultation providing topical care. antihypertensive medications of Coreg, losartan and Lasix continue to be held. Acute renal failure worsening, ATN, fluid support if able, hold nephrotoxic meds as has some volume overload nephrology will permit lasix one dose despite climbing Cr chronic respiratory failure, DuoNebs q.i.d. respiratory with CPAP at night with oxygen bleed-in. Regarding his anticoagulation supra therapeutic hold warfarin, checking daily PT/INRs. diabetes holding lispro 75/25 and converted to Lantus 20 b.i.d. with insulin sliding scale and pharmacy adjustment. DVT prevention warfarin. HE IS A FULL CODE.
[2017-01-04] MEDS ORDERED: NURSING VERBAL MED ORDER ONE (14:30)
[2017-01-04] MEDS ORDERED: VANCOMYCIN INJ 1,000 MG in SODIUM CHLORIDE 0.9% 250ML 250 ML IV ONE (15:00)
[2017-01-04] MEDS: OXYCODONE HCL IR 5 MG TAB (IMMEDIATE RELEASE) PO PRN (15:22)
[2017-01-04] MEDS: GUAIFENESIN 600 MG TABCR PO SCH (20:09)
--- NOTE | 2017-01-04 20:16 | ECHOCARDIOGRAM REPORT ---
*NOTICE TO RECEIVING LIBERTARIAN AGENCY This information is strictly Confidential and protected under [place] law. [place] law prohibits you from making any further disclosure of this information unless further disclosure is expressly permitted by the written consent of the person to whom it pertains or is authorized by law. A general authorization for the release of medical or other information is not sufficient for this purpose. Hospital accepts no responsibility if the information is made available to any other person, INCLUDING THE PATIENT. Interpretation Summary * Name: SUE MANCINI III Study Date: 01/04/2017 09:46 AM BP: 95/52 mmHg * Patient Location: .2T\S\S236\S\1 HR: 59 * : 1935 (M/d/yyyy) Gender: Male Height: 69 in * Age: 81 yrs Ethnicity: CA Weight: 301 lb * Ordering Physician: Shakeel aTnner * Referring Physician: Self, Referred * Performed By: Hakeem Carrasquillo RCS * * Reason For Study: Eval for Endocarditis * BSA: 2.5 m2 * -- Conclusions -- * 1. Normal left ventricular size and systolic function. EF 55-60%. Inferior base appears hypo to akinetic. Mild concentric left ventricular hypertrophy. Septal flattening during diastole suggests right ventricular volume overload. * 2. Right ventricle not well visualized but appears dilated with reduced systolic function. * 3. Moderate biatrial dilation. * 4. 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 * 5. Elevated mitral velocity and mean gradient, suggesting no more than mild mitral stenosis. There is mild mitral regurgitation. * 6. Cannot rule out valvular vegetation. * 7. Severe pulmonary hypertension suggested with estimated right ventricular systolic pressure of 67 mmHg. * 8. Technically difficult study, enhanced with IV Definity. * 9. No prior study available for comparison. Procedure Details * A complete two-dimensional transthoracic echocardiogram was performed (2D, M-mode, Doppler and color flow Doppler). * The study was technically difficult. * There were technical limitations due to patient'sPoor acoustic windows secondary to severe lung disease. * A contrast injection of Definity was performed to improve assessment of LV function. * Contrast was injected into an intravenous site in the left arm. * One vial of Definity ultrasound contrast was diluted in normal saline to a total volume of 10 ml. A total of '2' ml of solution was administered during imaging. * Lot # [id number] of Definity utilized for procedure. * Expiration date . * The attending nurse who injected the contrast agent was Diya Napoles RN. Left Ventricle * Normal left ventricular size and systolic function. EF 55-60%. Inferior base appears hypo to akinetic. Mild concentric left ventricular hypertrophy. Septal flattening during diastole suggests right ventricular volume overload. Right Ventricle * Right ventricle not well visualized but appears dilated with reduced systolic function. * The right ventricular systolic function is reduced as assessed by tricuspid annular plane systolic excursion (TAPSE) (TAPSE <1.6 cm). Atria * The left atrium is moderately dilated. * The right atrium is moderately dilated. * There is no evidence of atrial septal defect, but resolution does not allow assessment for a patent foramen ovale. Mitral Valve * There is moderate mitral annular calcification. * Elevated mitral velocity and mean gradient, suggesting no more than mild mitral stenosis. * There is mild mitral regurgitation. Tricuspid Valve * The tricuspid valve is not well visualized. * There is no tricuspid stenosis. * Tricuspid regurgitant jet is not well visualized but appears to be at least mild tricuspid regurgitation. Aortic Valve * There is no significant aortic regurgitation. * Probable bioprosthetic aortic valve with acceptable velocities and gradients. Pulmonic Valve * The pulmonary valve is inadequately visualized, but the Doppler data is adequate for interpretation. * There is no pulmonic valvular stenosis. * Mild pulmonic valvular regurgitation. Great Vessels * The aortic root is not well visualized. Pericardium/Pleural * There is no pericardial effusion. Great Vessels * Dilated IVC with reduced inspiratory collapse. MMode 2D Measurements and Calculations IVSd 1.2 cm IVSs 1.6 cm LVIDd 5.2 cm LVIDs 3.5 cm LVPWd 1.3 cm LVPWs 1.6 cm IVS/LVPW 0.95 FS 32.9 % EDV(Teich) 127.3 ml ESV(Teich) 49.7 ml EF(Teich) 61.0 % EDV(cubed) 137.5 ml ESV(cubed) 41.6 ml EF(cubed) 69.7 % % IVS thick 37.0 % % LVPW thick 30.1 % LV mass(C)d 253.7 grams LV mass(C)dI 103.2 grams/m\S\2 LV mass(C)s 220.9 grams LV mass(C)sI 89.9 grams/m\S\2 CO(Teich) 4.5 l/min CI(Teich) 1.8 l/min/m\S\2 SV(Teich) 77.6 ml SI(Teich) 31.6 ml/m\S\2 CO(cubed) 5.6 l/min CI(cubed) 2.3 l/min/m\S\2 SV(cubed) 95.9 ml SI(cubed) 39.0 ml/m\S\2 LVLd ap2 9.5 cm LVLs ap2 8.6 cm Doppler Measurements and Calculations MV E max faustino 182.0 cm/sec MV V2 max 230.5 cm/sec MV max PG 21.3 mmHg MV V2 mean 107.3 cm/sec MV mean PG 5.8 mmHg MV V2 VTI 57.8 cm MV P1/2t max faustino 228.6 cm/sec MV P1/2t 86.4 msec MVA(P1/2t) 2.5 cm\S\2 MV dec slope 774.8 cm/sec\S\2 MV dec time 0.26 sec Ao V2 max 278.9 cm/sec Ao max PG 31.1 mmHg Ao max PG (full) 28.7 mmHg Ao V2 mean 180.5 cm/sec Ao mean PG 15.3 mmHg Ao mean PG (full) 14.0 mmHg Ao V2 VTI 57.2 cm LV V1 max PG 2.5 mmHg LV V1 mean PG 1.3 mmHg LV V1 max 78.4 cm/sec LV V1 mean 52.8 cm/sec LV V1 VTI 15.8 cm TV E max faustino 75.5 cm/sec PA V2 max 82.1 cm/sec PA max PG 2.7 mmHg PI max faustino 240.5 cm/sec PI max PG 23.2 mmHg PI dec slope 151.0 cm/sec\S\2 PI P1/2t 466.6 msec TR max faustino 359.7 cm/sec RVSP(TR) 67.1 mmHg RAP systole 15.0 mmHg
[2017-01-05] VITALS (11 sets, daily range): BP systolic 94–127; BP diastolic 56–78; PULSE 48–121; TEMP 36.3–37.1; O2SAT 92–100
[2017-01-05 06:04] LABS: MEAN CELL VOLUME 92.4 fL (80-100); MEAN CORPUSCULAR HEMOGLOBIN 30.6 pg (25-34); MEAN CORPUSCULAR HGB CONC 33.1 g/dl (32-36); MEAN PLATELET VOLUME 9.6 fL (7.4-10.4); PLATELET COUNT 171 K/uL (130-400); RED BLOOD COUNT 3.14 M/uL (4.7-6.1); WHITE BLOOD COUNT 9.83 K/uL (4.8-10.8)
[2017-01-05] MEDS: LEVOTHYROXINE 100 MCG TAB PO SCH (06:08)
[2017-01-05 06:16] LABS: PROTHROMBIN TIME (PATIENT) 64.4 SECONDS (9.0-12.0)
[2017-01-05 06:19] LABS: INR 5.6 (0.9-1.1)
[2017-01-05 06:40] LABS: BUN/CREATININE RATIO 30.7 (10-20); CALCIUM 7.4 mg/dl (8.5-10.1); CREATININE 3.4 mg/dl (0.60-1.40); POTASSIUM 5.1 mmol/L (3.5-5.1)
[2017-01-05] MEDS: ALBUT/IPRATROP 3MG/0.5MG NEB 3 ML VIAL INH SCH ×4 (07:08→20:15)
[2017-01-05] MEDS: GUAIFENESIN 600 MG TABCR PO SCH ×2 (07:47→20:48)
[2017-01-05] MEDS: TAMSULOSIN HCL 0.4 MG CAP PO SCH (07:47)
[2017-01-05] MEDS: NYSTATIN SUSP 500,000 U/5 ML UDC PO SCH ×4 (07:47→20:43)
[2017-01-05] MEDS: NYSTATIN POWDER 15GM BTL EXT SCH ×2 (07:48→20:43)
[2017-01-05] MEDS: MICONAZOLE NITRATE POWDER 43 GM EXT SCH (07:48)
[2017-01-05] MEDS: EUCERIN CR 120 GM JAR EXT SCH (07:48)
[2017-01-05] MEDS: INSULIN GLARGINE SOLOSTAR 100 UNITS/ML 3 ML PEN SC SCH ×2 (07:50→20:46)
[2017-01-05] MEDS: INSULIN ASPART 100 UNITS/ML 3 ML PEN SC SCH ×4 (07:53→20:44)
[2017-01-05] MEDS: MoRPHine SULFATE 2 MG/ML CARP IV PRN (08:01)
--- NOTE | 2017-01-05 10:44 | Pharmacy Progress Note ---
Pharmacy Antibiotic Prog Note Date of Service Jan 05, 2017. Subjective The patient has received vancomycin 2 gm IV x 1 on 01/02 and 01/03 and then vancomycin 1000 mg IV x 1 on 01/04/2017 The patient is currently on day # 4 of IV therapy. Objective Height (Feet): 5 Height (Inches): 9.00 Weight (Kilograms): 137.800 Levels: Item Value Date Time Random Vancomycin Level 12.1 mcg/ml 01/03/17 1050 Random Vancomycin Level 22.8 mcg/ml 01/04/17 0625 Random Vancomycin Level 22.8 mcg/ml 01/05/17 0548 Lab Results (24hrs): Laboratory Tests Test 01/05/17 05:48 BUN/Creatinine Ratio 30.7 Blood Urea Nitrogen 104 mg/dl Creatinine 3.40 mg/dl White Blood Count 9.83 K/uL Micro Results: RUN DATE: 01/04/17 [facility] LAB PAGE 1 RUN TIME: 16 Specimen Inquiry PATIENT: SUE MANCINIPINCOTT VICK LOC: SubhashJavi U # : [id number] AGE/SX: 81/M ROOM: S230 REG : 01/02/[address]: Shakeel Tannre M : 1935 BED: 2 DIS : STATUS: ADM IN TLOC: SPEC #: [id number] CHANTAL: 01/02/17 STATUS: RES REQ #: [id number] RECD: 01/02/[address]: Houston Luis M.D. SOURCE: BLOOD ENTR: 01/02/17 [facility] DR: Winston Harper M.D. [facility] [place]: ORDERED: BLOOD CULTURE COMMENTS: Comments to Brigadier SAME TIME DIFFERENT SITES Procedure Result Verified Site BLD CULT Preliminary 01/04/17-0816 Organism 1 STAPHYLOCOCCUS AUREUS SENS SENSITIVITY TO FOLLOW SENSITIVITY RESULT INDICATES A METHICILLIN RESISTANT STAPH. AUREUS. PHONED TO RICHARD ALEXANDRA ON 01/04/17 AT 0815 BY Blanca Puentes. Results were verbalized back to GINA. RESULTS WERE ALSO CALLED TO [facility] INFECTION CONTROL ANSWERING MACHINE ON 01/04/17 BY GINA. Phoned Positive Blood Culture Gram Stain Report to CHRISTIANO EL on 01/02/17 At 2100 By SHARMAINE. Results were verbalized back to SHARMAINE. 1. STAPHYLOCOCCUS AUREUS Target Route Dose RX AB Cost M.I.C. IQ ------ ----- ------ -- ------ -------- - ------ TRIMET/SULFA S <=0.5/ 9.5 * OXACILLIN R * >2 VANCOMYCIN S 1 ERYTHROMYCIN R >4 TETRACYCLINE S <=4 CLINDAMYCIN R <=0.5 DAPTOMYCIN S <=0.5 RIFAMPIN S <=1 S = SENSITIVE I = INTERMEDIATE R = RESISTANT Assessment & Plan This drug level is: Supratherapeutic. Will give vancomycin 1500 mg IV x 1 dose earlier in the day today. It is unknown what the true trough for the patient is as this level is drawn at 6 am but the patient receives his dose at 1500. I believe that his true trough is therapeutic but I cannot know for certain. Therefore, I will give the dose earlier so the random more accurately reflects the trough. The dose is increased as the patient's kidney function improved slightly. Goal peak level estimate: between 35 - 40 mcg/mL. Goal trough level estimate: between 15 - 20 mcg/mL (indication: MRSA bacteremia ). Random level has been ordered for: 2016. Pharmacy will continue to follow and will adjust dose/frequency as necessary. Thank you
[2017-01-05] MEDS ORDERED: VANCOMYCIN INJ 1,500 MG in SODIUM CHLORIDE 0.9% 500ML 500 ML IV ONE (11:00)
--- NOTE | 2017-01-05 11:14 | Nephrology Progress Note ---
Nephrology Progress Note Date of Service Jan 05, 2017. Chief Complaint Evaluation of acute on chronic kidney injury Subjective Mr. Avery was seen & examined in the PCU this morning. He had a low grade fever overnight. His blood cultures are positive for MRSA. Echocardiogram was completed yesterday. IVF have been stopped and one dose furosemide given for treatment of mild CHF. Mr. Avery complains of mild dyspnea and wheezing this morning. Review of Systems Constitutional: No fever Cardiovascular: No chest pain Respiratory: + problem reported (wheezing) Abdomen: No nausea, No pain, No vomiting Extremities: + leg edema A complete review of systems was performed. Pertinent positives are noted above. All other systems are negative. Vital Signs Last 8 Hrs Date Time Temp Pulse Resp B/P Pulse Ox O2 Delivery O2 Flow Rate FiO2 01/05/17 08:30 CPAP 1.5 01/05/17 07:35 36.3 50 20 101/56 95 Room Air 01/05/17 07:08 48 18 94 Room Air 01/05/17 04:30 36.5 51 18 109/56 98 CPAP 1.5 01/05/17 04:00 CPAP 1.5 I & O 24-Hour Column 01/05/17 08:00 Intake Total 420 ml Output Total 975 ml Balance -555 ml Last Recorded Weight Weight (Kilograms): 137.800 Physical Exam General Appearance: no apparent distress Head: atraumatic Eyes: PERRL, EOMI Neck: no adenopathy Respiratory/Chest: + crackles (at bases bilaterally) Cardiovascular: regular rate, rhythm Abdomen/GI: non tender, soft Genitourinary - Male: + pertinent finding (rucker catheter w/ dark yellow urine) Extremities/Musculoskelatal: + pertinent finding (1+ pretibial pitting edema. Left 2nd toe w/ clean dry dressing in place) Neurologic/Psych: alert Family History Negative for CKD / ESRD Social History Marital Status: Occupation: retired Retired. Originally from [employer] [place]. 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 Never a smoker Laboratory Results Past 24 Hours 01/05/17 05:48 01/05/17 05:48 Test 01/04/17 11:19 01/04/17 15:58 01/04/17 20:35 01/05/17 05:48 Bedside Glucose 211 mg/dl (70-99) 218 mg/dl (70-99) 175 mg/dl (70-99) Red Blood Count 3.14 M/uL (4.7-6.1) Mean Corpuscular Volume 92.4 fL (80-100) Mean Corpuscular Hemoglobin 30.6 pg (25-34) Mean Corpuscular Hemoglobin Concent 33.1 g/dl (32-36) RDW Standard Deviation 52.3 fL (36.4-46.3) RDW Coefficient of Variation 15.4 % (11.5-14.5) Mean Platelet Volume 9.6 fL (7.4-10.4) Prothrombin Time 64.4 SECONDS (9.0-12.0) Prothromb Time International Ratio 5.6 (0.9-1.1) Anion Gap 12.0 mmol/L (3-11) Est Creatinine Clear Calc Drug Dose 23.5 ml/min Estimated GFR () 18.5 Estimated GFR (Non- 16.0 BUN/Creatinine Ratio 30.7 (10-20) Calcium Level 7.4 mg/dl (8.5-10.1) Random Vancomycin Level 22.8 mcg/ml Test 01/05/17 06:51 Bedside Glucose 121 mg/dl (70-99) Allergies Coded Allergies: Chlorpheniramine (Unverified Allergy, Unknown, ., 01/02/17) Phenylpropanolamine (Unverified Allergy, Unknown, ., 01/02/17) Medications Current Inpatient Medications Medications (Trade) Dose Ordered Sig/Sukhwinder Route Start Time Stop Time Status Last Admin Dose Admin Acetaminophen (Tylenol Tab) 650 mg Q4H PRN PO 01/02/17 09:30 02/01/17 09:29 Al Hydrox/Mg Hydrox/Simethicone (Maalox Max Susp) 15 ml Q4H PRN PO 01/02/17 09:30 02/01/17 09:29 Magnesium Hydroxide (Milk Of Magnesia Susp) 30 ml Q12H PRN PO 01/02/17 09:30 02/01/17 09:29 Ondansetron HCl (Zofran Inj) 4 mg Q6H PRN IV 01/02/17 09:30 02/01/17 09:29 Nitroglycerin (Nitrostat Tab) 0.4 mg UD PRN SL 01/02/17 09:30 02/01/17 09:29 Polyethylene (Miralax Powder Packet) 17 gm DAILY PRN PO 01/02/17 09:30 02/01/17 09:29 Albuterol/ Ipratropium (Duoneb) 3 ml QIDR INH 01/02/17 12:00 02/01/17 11:59 01/05/17 07:08 3 ML Levothyroxine Sodium (Synthroid Tab) 100 mcg DAILYBB PO 01/03/17 06:00 02/02/17 08:59 01/05/17 06:08 100 MCG Tamsulosin HCl (Flomax Cap) 0.4 mg DAILY PO 01/03/17 09:00 02/02/17 08:59 01/05/17 07:47 0.4 MG Warfarin Sodium (Coumadin Tab) 5 mg SuTuWeThFrSa@1600 PO 01/02/17 16:00 02/01/17 15:59 Future Hold 01/03/17 17:24 5 MG Nystatin (Mycostatin Powder) 1 appln BID EXT 01/02/17 21:00 02/01/17 20:59 01/05/17 07:48 1 APPLN Nystatin (Mycostatin Susp) 5 ml QID PO 01/02/17 13:00 01/12/17 12:59 01/05/17 07:47 5 ML Morphine Sulfate (MoRPHine SULFATE INJ) 2 mg Q4H PRN IV 01/02/17 09:30 01/16/17 09:29 01/05/17 08:01 2 MG Morphine Sulfate (MoRPHine SULFATE INJ) 4 mg Q4H PRN IV 01/02/17 09:30 01/16/17 09:29 01/02/17 10:02 4 MG Oxycodone HCl (Roxicodone Immediate Rel Tab) 10 mg Q6 PRN PO 01/02/17 09:30 01/16/17 09:29 01/04/17 15:22 10 MG Insulin Aspart (novoLOG ASPART) SLIDING SCALE PARAMETER ACHS SC 01/02/17 11:00 02/01/17 10:59 01/05/17 07:53 7 UNITS Insulin Glargine (Lantus Solostar Pen) 20 unit BID SC 01/02/17 21:00 02/01/17 20:59 01/05/17 07:50 20 UNIT Vancomycin HCl (Consult) 1 ea UD PRN N/A 01/02/17 10:00 02/01/17 09:59 Miconazole Nitrate (Desenex Powder) 1 appln DAILY EXT 01/03/17 09:00 02/02/17 08:59 01/05/17 07:48 1 APPLN Multi-Ingredient Ointment (Eucerin Unscented Cr) 1 appln DAILY EXT 01/03/17 09:00 02/02/17 08:59 01/05/17 07:48 1 APPLN Glucose (Glucose 40% Gel) 15-30 GRAMS 15 GRAMS... UD PRN PO 01/02/17 13:15 02/01/17 13:14 Glucose (Glucose Chew Tab) 4-8 Tablets 4 Tabl... UD PRN PO 01/02/17 13:15 02/01/17 13:14 Dextrose (Dextrose 50% 50ML Syringe) 25-50ML OF 50% DW IV FOR... UD PRN IV 01/02/17 13:15 02/01/17 13:14 Glucagon (Glucagon Inj) 1 mg UD PRN SQ 01/02/17 13:15 02/01/17 13:14 Guaifenesin 1200 mg 1,200 mg Q12 PO 01/04/17 21:00 02/03/17 20:59 01/05/17 07:47 1,200 MG Vancomycin HCl/ Sodium Chloride (Vancomycin Inj/ Nss 500ml) 530 ml @ 200 mls/hr NOW ONCE IV 01/05/17 11:00 01/05/17 13:38 Impression (1) Acute kidney injury (2) Stage 3 chronic kidney disease (3) SIRS (systemic inflammatory response syndrome) (4) Hypotension (5) Cellulitis of left lower extremity (6) ASCVD (arteriosclerotic cardiovascular disease) (7) A-fib (8) Diabetes (9) Sleep apnea Mr. Avery was admitted to the hospital with LLE cellulitis, SIRS, relative hypotension and acute on chronic kidney injury. He has underlying diabetic nephropathy. His baseline creatinine has been 2.0. Blood cultures are currently pending. Urinalysis is positive for blood due to rucker catheter. Proteinuria is present c/w diabetic nephropathy. Patient has been started on empiric IV Vanco & Zosyn therapy PMH - AODM, BMI > 40, HTN, hyperlipidemia, ASCVD s/p CABG w/ AVR, chronic atrial fibrillation, EVENS, gout, kidney stones and recurrent UTI. Recommendations ACUTE KIDNEY INJURY: -- Patient is entering the recovery phase of ATN. He is nonoliguric. Creatinine has dropped from 3.6 to 3.4. -- Continue to hold Losartan -- Patient has mild volume overload. IVF has been stopped. Will administer Lasix 40 mg IV x 1 today and monitor UO -- Monitor serial PRP -- Renal US report 01/04/17: 9 cm cyst arising from lower pole of the left kidney. No obstruction. -- Urinalysis shows granular casts c/w ATN. UPCR 0.7 -- Consider d/c rucker when patient is OOB CHRONIC KIDNEY DISEASE: -- Creatinine 2.0 due to diabetic nephropathy and microvascular disease HYPERTENSION: -- Patient was admitted w/ relative hypotension. Blood pressure is improved. Continue to hold Losartan ANEMIA: -- Hgb has stabilized at 9.6. Monitor. ID: -- Blood cutures + for MRSA. Patient is on IV Vanco as per primary service -- Urine cultures are negative
[2017-01-05] MEDS ORDERED: FUROSEMIDE INJ 40 MG in SYRINGE 0 ML IV ONE (11:15)
[2017-01-05] MEDS ORDERED: PHYTONADIONE 5 MG TAB PO STA (14:39)
--- NOTE | 2017-01-05 14:41 | Progress Note ---
Subjective Date of Service: Jan 05, 2017. Problem List Medical Problems: (1) Cellulitis of left lower extremity Status: Acute (2) Sepsis Status: Acute Review of Systems Constitutional: No chills, No fever, No sweats Respiratory: + cough, No dyspnea on exertion, No shortness of breath, No sputum Cardiac: + edema, No chest pain Abdomen: No nausea, No pain, No vomiting Male : No dysuria, No urinary frequency Neurologic: No memory loss, No paralysis Objective Vital Signs Date Time Temp Pulse Resp B/P Pulse Ox O2 Delivery O2 Flow Rate FiO2 01/05/17 12:30 CPAP 1.5 01/05/17 11:58 36.5 118 20 113/64 94 01/05/17 11:18 53 18 97 Nasal Cannula 2.0 01/05/17 08:30 CPAP 1.5 01/05/17 07:35 36.3 50 20 101/56 95 Room Air 01/05/17 07:08 48 18 94 Room Air 01/05/17 04:30 36.5 51 18 109/56 98 CPAP 1.5 01/05/17 04:00 CPAP 1.5 01/04/17 23:59 CPAP 1.5 01/04/17 23:49 36.4 47 16 97/46 96 CPAP 01/04/17 20:00 CPAP 1.5 01/04/17 19:31 63 18 94 Nasal Cannula 3.0 01/04/17 19:25 36.7 54 28 101/64 99 Nasal Cannula 3.0 01/04/17 16:00 Room Air 01/04/17 16:00 37.0 63 28 133/72 97 Nasal Cannula 3.0 01/04/17 15:36 60 18 94 Room Air 01/04/17 15:29 61 93 Physical Exam General Appearance: WD/WN, no apparent distress Respiratory/Chest: chest non-tender, + accessory muscle use, + rhonchi Cardiovascular: regular rate, rhythm, + systolic murmur Abdomen: normal bowel sounds, soft Extremities: no calf tenderness, + pedal edema Neurologic/Psychiatric: alert, oriented x 3 Skin: + pertinent finding (open areas left foot) Laboratory Results Last 24 Hours Test 01/04/17 15:58 01/04/17 20:35 01/05/17 05:48 01/05/17 06:51 Bedside Glucose 218 mg/dl 175 mg/dl 121 mg/dl White Blood Count 9.83 K/uL Red Blood Count 3.14 M/uL Hemoglobin 9.6 g/dL Hematocrit 29.0 % Mean Corpuscular Volume 92.4 fL Mean Corpuscular Hemoglobin 30.6 pg Mean Corpuscular Hemoglobin Concent 33.1 g/dl RDW Standard Deviation 52.3 fL RDW Coefficient of Variation 15.4 % Platelet Count 171 K/uL Mean Platelet Volume 9.6 fL Prothrombin Time 64.4 SECONDS Prothromb Time International Ratio 5.6 Sodium Level 139 mmol/L Potassium Level 5.1 mmol/L Chloride Level 109 mmol/L Carbon Dioxide Level 18 mmol/L Anion Gap 12.0 mmol/L Blood Urea Nitrogen 104 mg/dl Creatinine 3.40 mg/dl Est Creatinine Clear Calc Drug Dose 23.5 ml/min Estimated GFR () 18.5 Estimated GFR (Non- 16.0 BUN/Creatinine Ratio 30.7 Random Glucose 128 mg/dl Calcium Level 7.4 mg/dl Random Vancomycin Level 22.8 mcg/ml Assessment and Plan 81-year-old male here with SEPSIS likely from diabetic foot infection, atn AND acute on chronic renal failure and chronic respiratory failure with nocturnal hypoxia requiring CPAP at 11 cm. Sepsis from MRSA, vancomycin with pharmacy dosing and worsening renal failure( daptomycin?), since aortic valve TTE performed and negative, and ID consult to recommend duration of antibiotics and likely choice( decision for PICC and outpt treatment will be after all 4 blood cultures are negative) Fungal infection, oral and panniculitis candidal-resolving Nystatin swish and swallow and topical Nystatin powder. Diabetic foot abrasions and likely portals of infection. wound care consultation providing topical care, slow to improve may have imaging of foot to determine if osteomyelitis. antihypertensive medications of Coreg, losartan and Lasix continue to be held, renal function remains poor. Acute renal failure worsening, ATN, hold nephrotoxic meds nephrology oversight chronic respiratory failure, DuoNebs q.i.d. respiratory with CPAP at night with oxygen bleed-in. Regarding his anticoagulation supra therapeutic hold warfarin, one low dose vitamin K, checking daily PT/INRs. diabetes holding lispro 75/25 and converted to Lantus 20 b.i.d. with insulin sliding scale and pharmacy adjustment. DVT prevention warfarin. HE IS A FULL CODE.
[2017-01-05] MEDS ORDERED: PHYTONADIONE INJ 2.5 MG in SODIUM CHLORIDE 0.9% 50ML 50 ML IV ONE (15:00)
[2017-01-05] MEDS: MoRPHine SULFATE 4 MG/ML 1 ML CARP\\VIAL IV PRN (15:44)
--- NOTE | 2017-01-05 19:39 | Infectious Disease Progress Nt ---
Progress Note Date of Service Jan 05, 2017. Subjective Pt evaluation today including: conversation w/ patient, physical exam, chart review, lab review, review of studies, conversation w/ senior sales consultant, review of inpatient medication list low-grade fever last night, otherwise offers no new complaints. Echocardiogram , transthoracic, shows no obvious vegetation. Tolerating antibiotics without apparent difficulty. No other new complaints. All Other Systems: Reviewed and Negative Medications Current Inpatient Medications Medications (Trade) Dose Ordered Sig/Sukhwinder Route Start Time Stop Time Status Last Admin Dose Admin Acetaminophen (Tylenol Tab) 650 mg Q4H PRN PO 01/02/17 09:30 02/01/17 09:29 Al Hydrox/Mg Hydrox/Simethicone (Maalox Max Susp) 15 ml Q4H PRN PO 01/02/17 09:30 02/01/17 09:29 Magnesium Hydroxide (Milk Of Magnesia Susp) 30 ml Q12H PRN PO 01/02/17 09:30 02/01/17 09:29 Ondansetron HCl (Zofran Inj) 4 mg Q6H PRN IV 01/02/17 09:30 02/01/17 09:29 Nitroglycerin (Nitrostat Tab) 0.4 mg UD PRN SL 01/02/17 09:30 02/01/17 09:29 Polyethylene (Miralax Powder Packet) 17 gm DAILY PRN PO 01/02/17 09:30 02/01/17 09:29 Albuterol/ Ipratropium (Duoneb) 3 ml QIDR INH 01/02/17 12:00 02/01/17 11:59 01/05/17 16:03 3 ML Levothyroxine Sodium (Synthroid Tab) 100 mcg DAILYBB PO 01/03/17 06:00 02/02/17 08:59 01/05/17 06:08 100 MCG Tamsulosin HCl (Flomax Cap) 0.4 mg DAILY PO 01/03/17 09:00 02/02/17 08:59 01/05/17 07:47 0.4 MG Warfarin Sodium (Coumadin Tab) 5 mg SuTuWeThFrSa@1600 PO 01/02/17 16:00 02/01/17 15:59 Future Hold 01/03/17 17:24 5 MG Nystatin (Mycostatin Powder) 1 appln BID EXT 01/02/17 21:00 02/01/17 20:59 01/05/17 07:48 1 APPLN Nystatin (Mycostatin Susp) 5 ml QID PO 01/02/17 13:00 01/12/17 12:59 01/05/17 17:52 5 ML Morphine Sulfate (MoRPHine SULFATE INJ) 2 mg Q4H PRN IV 01/02/17 09:30 01/16/17 09:29 01/05/17 08:01 2 MG Morphine Sulfate (MoRPHine SULFATE INJ) 4 mg Q4H PRN IV 01/02/17 09:30 01/16/17 09:29 01/05/17 15:44 4 MG Oxycodone HCl (Roxicodone Immediate Rel Tab) 10 mg Q6 PRN PO 01/02/17 09:30 01/16/17 09:29 01/04/17 15:22 10 MG Insulin Aspart (novoLOG ASPART) SLIDING SCALE PARAMETER ACHS SC 01/02/17 11:00 02/01/17 10:59 01/05/17 17:53 3 UNITS Insulin Glargine (Lantus Solostar Pen) 20 unit BID SC 01/02/17 21:00 02/01/17 20:59 01/05/17 07:50 20 UNIT Vancomycin HCl (Consult) 1 ea UD PRN N/A 01/02/17 10:00 02/01/17 09:59 Miconazole Nitrate (Desenex Powder) 1 appln DAILY EXT 01/03/17 09:00 02/02/17 08:59 01/05/17 07:48 1 APPLN Multi-Ingredient Ointment (Eucerin Unscented Cr) 1 appln DAILY EXT 01/03/17 09:00 02/02/17 08:59 01/05/17 07:48 1 APPLN Glucose (Glucose 40% Gel) 15-30 GRAMS 15 GRAMS... UD PRN PO 01/02/17 13:15 02/01/17 13:14 Glucose (Glucose Chew Tab) 4-8 Tablets 4 Tabl... UD PRN PO 01/02/17 13:15 02/01/17 13:14 Dextrose (Dextrose 50% 50ML Syringe) 25-50ML OF 50% DW IV FOR... UD PRN IV 01/02/17 13:15 02/01/17 13:14 Glucagon (Glucagon Inj) 1 mg UD PRN SQ 01/02/17 13:15 02/01/17 13:14 Guaifenesin (Mucinex Contr Rel Tab) 1,200 mg Q12 PO 01/04/17 21:00 02/03/17 20:59 01/05/17 07:47 1,200 MG Objective Vital Signs Date Time Temp Pulse Resp B/P Pulse Ox O2 Delivery O2 Flow Rate FiO2 01/05/17 16:03 53 18 97 Nasal Cannula 2.0 01/05/17 16:00 Nasal Cannula 3.0 CPAP 01/05/17 15:20 36.7 28 122/58 97 Nasal Cannula 3.0 01/05/17 12:30 CPAP 1.5 01/05/17 11:58 36.5 118 20 113/64 94 01/05/17 11:18 53 18 97 Nasal Cannula 2.0 01/05/17 08:30 CPAP 1.5 01/05/17 07:35 36.3 50 20 101/56 95 Room Air 01/05/17 07:08 48 18 94 Room Air 01/05/17 04:30 36.5 51 18 109/56 98 CPAP 1.5 01/05/17 04:00 CPAP 1.5 01/04/17 23:59 CPAP 1.5 01/04/17 23:49 36.4 47 16 97/46 96 CPAP 01/04/17 20:00 CPAP 1.5 Physical Exam General Appearance: WD/WN, no apparent distress Eyes: normal inspection, sclerae normal ENT: normal ENT inspection, hearing grossly normal, pharynx normal Neck: supple, no adenopathy, trachea midline Respiratory/Chest: chest non-tender, lungs clear, normal breath sounds, no respiratory distress Cardiovascular: regular rate, rhythm, no gallop, + systolic murmur Abdomen: normal bowel sounds, non tender, soft, no organomegaly Extremities: no calf tenderness, normal capillary refill Neurologic/Psychiatric: alert, oriented x 3 Skin: normal color, no rash, + pertinent finding ( No change toe ulcerations) Lymphatic: no adenopathy Laboratory Results Last 24 Hours Test 01/04/17 20:35 01/05/17 05:48 01/05/17 06:51 01/05/17 11:25 Bedside Glucose 175 mg/dl 121 mg/dl 126 mg/dl White Blood Count 9.83 K/uL Red Blood Count 3.14 M/uL Hemoglobin 9.6 g/dL Hematocrit 29.0 % Mean Corpuscular Volume 92.4 fL Mean Corpuscular Hemoglobin 30.6 pg Mean Corpuscular Hemoglobin Concent 33.1 g/dl RDW Standard Deviation 52.3 fL RDW Coefficient of Variation 15.4 % Platelet Count 171 K/uL Mean Platelet Volume 9.6 fL Prothrombin Time 64.4 SECONDS Prothromb Time International Ratio 5.6 Sodium Level 139 mmol/L Potassium Level 5.1 mmol/L Chloride Level 109 mmol/L Carbon Dioxide Level 18 mmol/L Anion Gap 12.0 mmol/L Blood Urea Nitrogen 104 mg/dl Creatinine 3.40 mg/dl Est Creatinine Clear Calc Drug Dose 23.5 ml/min Estimated GFR () 18.5 Estimated GFR (Non- 16.0 BUN/Creatinine Ratio 30.7 Random Glucose 128 mg/dl Calcium Level 7.4 mg/dl Random Vancomycin Level 22.8 mcg/ml Test 01/05/17 16:03 Bedside Glucose 122 mg/dl Assessment and Plan 81 yo male with MRSA sepsis likely from left foot and leg infection associated with DM with neuropathy and with CARLO. Vancomycin appropriate therapy for now, with length of therapy yet to be determined. echocardiogram shows no obvious vegetation, will discuss further management with all involved.
[2017-01-06] VITALS (10 sets, daily range): BP systolic 105–125; BP diastolic 54–68; PULSE 54–72; TEMP 36.4–37.1; O2SAT 92–99
[2017-01-06] MEDS: LEVOTHYROXINE 100 MCG TAB PO SCH (05:49)
[2017-01-06 06:08] LABS: INR 1.8 (0.9-1.1); PROTHROMBIN TIME (PATIENT) 19.8 SECONDS (9.0-12.0)
[2017-01-06 06:11] LABS: BUN/CREATININE RATIO 38.1 (10-20); CREATININE 2.5 mg/dl (0.60-1.40); POTASSIUM 4.8 mmol/L (3.5-5.1)
--- NOTE | 2017-01-06 07:08 | DIAGNOSTIC IMAGING REPORT ---
CHEST ONE VIEW PORTABLE CLINICAL HISTORY: Congestive heart failure COMPARISON STUDY: 01/02/2017 FINDINGS: The heart remains enlarged. There are postsurgical changes involving the anterior chest wall. There is radiographic evidence of mild congestive failure/fluid overload. There is no lobar consolidation. No significant pleural effusions are visualized.[ IMPRESSION: Cardiomegaly and radiographic evidence of mild congestive failure/fluid overload. Electronically signed by: Chris Odonnell M.D. 01/06/2017 7:06 AM Dictated Date/Time: 01/06/2017 7:05 AM
[2017-01-06] MEDS: ALBUT/IPRATROP 3MG/0.5MG NEB 3 ML VIAL INH SCH ×4 (07:38→19:18)
[2017-01-06] MEDS: GUAIFENESIN 600 MG TABCR PO SCH ×2 (08:30→20:54)
[2017-01-06] MEDS: TAMSULOSIN HCL 0.4 MG CAP PO SCH (08:31)
[2017-01-06] MEDS: NYSTATIN SUSP 500,000 U/5 ML UDC PO SCH ×4 (08:31→20:54)
[2017-01-06] MEDS: INSULIN ASPART 100 UNITS/ML 3 ML PEN SC SCH ×4 (08:34→20:58)
[2017-01-06] MEDS: INSULIN GLARGINE SOLOSTAR 100 UNITS/ML 3 ML PEN SC SCH ×2 (08:35→20:59)
[2017-01-06] MEDS: EUCERIN CR 120 GM JAR EXT SCH (08:36)
[2017-01-06] MEDS: MICONAZOLE NITRATE POWDER 43 GM EXT SCH (08:36)
[2017-01-06] MEDS: NYSTATIN POWDER 15GM BTL EXT SCH ×2 (08:36→20:54)
[2017-01-06] MEDS ORDERED: VANCOMYCIN INJ 1,500 MG in SODIUM CHLORIDE 0.9% 500ML 500 ML IV SCH (12:00)
--- NOTE | 2017-01-06 12:14 | Pharmacy Progress Note ---
Pharmacy Antibiotic Prog Note Date of Service Jan 06, 2017. Subjective The patient is currently receiving IV Vancomycin dosing based on random levels due to impaired renal function. The patient is currently on day #5 of IV therapy. Objective Height (Feet): 5 Height (Inches): 9.00 Weight (Kilograms): 138.100 Levels: Item Value Date Time Random Vancomycin Level 25.3 mcg/ml 01/06/17 0505 Random Vancomycin Level 22.8 mcg/ml 01/05/17 0548 Random Vancomycin Level 22.8 mcg/ml 01/04/17 0625 Random Vancomycin Level 12.1 mcg/ml 01/03/17 1050 Lab Results (24hrs): Laboratory Tests Test 01/06/17 05:05 BUN/Creatinine Ratio 38.1 Blood Urea Nitrogen 95 mg/dl Creatinine 2.50 mg/dl Micro Results: Item Value Date Time Blood Culture - Final Complete 01/02/17 0740 Blood Staphylococcus Aureus Blood Culture - Preliminary Resulted 01/02/17 0745 Blood Staphylococcus Aureus Urine Culture - Final Complete 01/02/17 1211 Urine,Catheterized NO GROWTH - LESS THAN 1,000 COLONIES/ML Blood Culture Received 01/05/17 1128 Blood Pending Blood Culture Received 01/05/17 1132 Blood Pending RUN DATE: 01/04/17 [facility] LAB PAGE 1 RUN TIME: 815 Specimen Inquiry PATIENT: SUE MANCINI III LOC: [facility] U # : [id number] AGE/SX: 81/M ROOM: S230 REG : 01/02/[address]: Shakeel Tanner M : 1935 BED: 2 DIS : STATUS: ADM IN TLOC: SPEC #: [id number] CHANTAL: 01/02/17 STATUS: RES REQ #: [id number] RECD: 01/02/[address]: Houston Luis M.D. SOURCE: BLOOD ENTR: 01/02/[address] [facility] [address]: Winston Harper M.D. [facility] ORDERED: BLOOD CULTURE COMMENTS: Comments to [place] [employer] SAME TIME DIFFERENT SITES Procedure Result Verified Site BLD CULT Preliminary 01/04/17-0816 Organism 1 STAPHYLOCOCCUS AUREUS SENS SENSITIVITY TO FOLLOW SENSITIVITY RESULT INDICATES A METHICILLIN RESISTANT STAPH. AUREUS. PHONED TO RICHARD ALEXANDRA ON 01/04/17 AT 0815 BY Blanca Puentes. Results were verbalized back to GINA. RESULTS WERE ALSO CALLED TO [facility] CONTROL ANSWERING MACHINE ON 01/04/17 BY GINA. Phoned Positive Blood Culture Gram Stain Report to CHRISTIANO EL on 01/02/17 At 2101 By SHARMAINE. Results were verbalized back to SHARMAINE. 1. STAPHYLOCOCCUS AUREUS Target Route Dose RX AB Cost M.I.C. IQ ------ ----- ------ -- ------ -------- - ------ TRIMET/SULFA S <=0.5/ 9.5 * OXACILLIN R * >2 VANCOMYCIN S 1 ERYTHROMYCIN R >4 TETRACYCLINE S <=4 CLINDAMYCIN R <=0.5 DAPTOMYCIN S <=0.5 RIFAMPIN S <=1 S = SENSITIVE I = INTERMEDIATE R = RESISTANT Recent Pertinent Medications Item Value Date Time Vancomycin HCl 540 ml @ 200 mls/hr 01/02/17 1000 2000 mg/Sodium TODAY@1000 ONCE/IV 01/02/17 1029 Chloride Vancomycin HCl 540 ml @ 200 mls/hr 01/03/17 1500 2000 mg/Sodium TODAY@1500 ONCE/IV 01/03/17 1522 Chloride Vancomycin HCl 270 ml @ 125 mls/hr 01/04/17 1500 1000 mg/Sodium TODAY@1500 ONCE/IV 01/04/17 1522 Chloride Vancomycin HCl 530 ml @ 200 mls/hr 01/05/17 1100 1500 mg/Sodium NOW ONCE/IV 01/05/17 1135 Chloride Vancomycin HCl 530 ml @ 200 mls/hr 01/06/17 1200 1500 mg/Sodium TODAY@1200/IV Chloride Assessment & Plan Vancomycin * 81 yo M with MRSA bacteremia * Goal peak level: 30-40mcg/mL * Goal trough level: 15-20mcg/mL * Random level this AM indicates therapeutic level & likely therapeutic trough * Significant improvement in renal function overnight (SCr 3.4-->2.5) * Continue today with another 1500mg dose (~11mg/kg) * Random level ordered with AM labs tomorrow * May be possible to begin scheduled dosing with continued improvement of renal function Pharmacy will continue to follow and will adjust dose/frequency as necessary. Thank you
[2017-01-06] MEDS ORDERED: FUROSEMIDE 40 MG/4 ML VIAL IV ONE (13:30)
--- NOTE | 2017-01-06 13:35 | Nephrology Progress Note ---
Nephrology Progress Note Date of Service Jan 06, 2017. Chief Complaint Follow-up for acute kidney injury with history of chronic kidney disease. Subjective Mr. Avery was seen and examined in his room this morning. His overall feeling better and denies any significant shortness of breath or chest pain. Renal function has been improving significantly, creatinine was 2.5 this morning improved from 3.4 yesterday, non-oliguric. Denies any fever or chills and blood pressure has been stable. Review of Systems A complete review of systems was performed. Pertinent positives are noted above. All other systems are negative. Vital Signs Last 8 Hrs Date Time Temp Pulse Resp B/P Pulse Ox O2 Delivery O2 Flow Rate FiO2 01/06/17 12:00 Nasal Cannula 2.0 CPAP 01/06/17 11:54 72 20 97 Nasal Cannula 2.0 01/06/17 11:52 36.5 64 20 121/57 93 Nasal Cannula 2.0 01/06/17 08:17 36.7 61 22 125/68 92 01/06/17 08:00 Nasal Cannula 2.0 CPAP 01/06/17 07:38 59 20 98 Nasal Cannula 2.0 I & O 24-Hour Column 01/06/17 08:00 Intake Total 1417 ml Output Total 3800 ml Balance -2383 ml Last Recorded Weight Weight (Kilograms): 138.100 Physical Exam GENERAL: Elderly male, AAA x 3, pleasant, healthy-appearing, not in any distress. NECK: Supple, no JVD. RESPIRATORY: Normal breathing efforts, no accessory muscle use, crackles bilateral bases. CARDIOVASCULAR: S1, S2 normal, rate rhythm regular. EXTREMITY: No lower extremity edema NEURO: speech fluent. 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 Originally from [employer]. 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 Never a smoker Laboratory Results Past 24 Hours 01/06/17 05:05 Test 01/05/17 16:03 01/05/17 20:02 01/06/17 05:05 01/06/17 06:58 Bedside Glucose 122 mg/dl (70-99) 146 mg/dl (70-99) 114 mg/dl (70-99) Prothrombin Time 19.8 SECONDS (9.0-12.0) Prothromb Time International Ratio 1.8 (0.9-1.1) Anion Gap 8.0 mmol/L (3-11) Est Creatinine Clear Calc Drug Dose 32.0 ml/min Estimated GFR () 26.9 Estimated GFR (Non- 23.2 BUN/Creatinine Ratio 38.1 (10-20) Calcium Level 8.0 mg/dl (8.5-10.1) Random Vancomycin Level 25.3 mcg/ml Test 01/06/17 11:32 Bedside Glucose 152 mg/dl (70-99) Allergies Coded Allergies: Chlorpheniramine (Unverified Allergy, Unknown, ., 01/02/17) Phenylpropanolamine (Unverified Allergy, Unknown, ., 01/02/17) Medications Current Inpatient Medications Medications (Trade) Dose Ordered Sig/Sukhwinder Route Start Time Stop Time Status Last Admin Dose Admin Acetaminophen (Tylenol Tab) 650 mg Q4H PRN PO 01/02/17 09:30 02/01/17 09:29 Al Hydrox/Mg Hydrox/Simethicone (Maalox Max Susp) 15 ml Q4H PRN PO 01/02/17 09:30 02/01/17 09:29 Magnesium Hydroxide (Milk Of Magnesia Susp) 30 ml Q12H PRN PO 01/02/17 09:30 02/01/17 09:29 01/06/17 08:35 30 ML Ondansetron HCl (Zofran Inj) 4 mg Q6H PRN IV 01/02/17 09:30 02/01/17 09:29 Nitroglycerin (Nitrostat Tab) 0.4 mg UD PRN SL 01/02/17 09:30 02/01/17 09:29 Polyethylene (Miralax Powder Packet) 17 gm DAILY PRN PO 01/02/17 09:30 02/01/17 09:29 01/06/17 08:35 17 GM Albuterol/ Ipratropium (Duoneb) 3 ml QIDR INH 01/02/17 12:00 02/01/17 11:59 01/06/17 11:53 3 ML Levothyroxine Sodium (Synthroid Tab) 100 mcg DAILYBB PO 01/03/17 06:00 02/02/17 08:59 01/06/17 05:49 100 MCG Tamsulosin HCl (Flomax Cap) 0.4 mg DAILY PO 01/03/17 09:00 02/02/17 08:59 01/06/17 08:31 0.4 MG Warfarin Sodium (Coumadin Tab) 5 mg SuTuWeThFrSa@1600 PO 01/02/17 16:00 02/01/17 15:59 Future hold 01/03/17 17:24 5 MG Nystatin (Mycostatin Powder) 1 appln BID EXT 01/02/17 21:00 02/01/17 20:59 01/06/17 08:36 1 APPLN Nystatin (Mycostatin Susp) 5 ml QID PO 01/02/17 13:00 01/12/17 12:59 01/06/17 13:01 5 ML Morphine Sulfate (MoRPHine SULFATE INJ) 2 mg Q4H PRN IV 01/02/17 09:30 01/16/17 09:29 01/05/17 08:01 2 MG Morphine Sulfate (MoRPHine SULFATE INJ) 4 mg Q4H PRN IV 01/02/17 09:30 01/16/17 09:29 01/05/17 15:44 4 MG Oxycodone HCl (Roxicodone Immediate Rel Tab) 10 mg Q6 PRN PO 01/02/17 09:30 01/16/17 09:29 01/04/17 15:22 10 MG Insulin Aspart (novoLOG ASPART) SLIDING SCALE PARAMETER ACHS SC 01/02/17 11:00 02/01/17 10:59 01/06/17 12:16 9 UNITS Insulin Glargine (Lantus Solostar Pen) 20 unit BID SC 01/02/17 21:00 02/01/17 20:59 01/06/17 08:35 20 UNIT Vancomycin HCl (Consult) 1 ea UD PRN N/A 01/02/17 10:00 02/01/17 09:59 Miconazole Nitrate (Desenex Powder) 1 appln DAILY EXT 01/03/17 09:00 02/02/17 08:59 01/06/17 08:36 1 APPLN Multi-Ingredient Ointment (Eucerin Unscented Cr) 1 appln DAILY EXT 01/03/17 09:00 02/02/17 08:59 01/06/17 08:36 1 APPLN Glucose (Glucose 40% Gel) 15-30 GRAMS 15 GRAMS... UD PRN PO 01/02/17 13:15 02/01/17 13:14 Glucose (Glucose Chew Tab) 4-8 Tablets 4 Tabl... UD PRN PO 01/02/17 13:15 02/01/17 13:14 Dextrose (Dextrose 50% 50ML Syringe) 25-50ML OF 50% DW IV FOR... UD PRN IV 01/02/17 13:15 02/01/17 13:14 Glucagon (Glucagon Inj) 1 mg UD PRN SQ 01/02/17 13:15 02/01/17 13:14 Guaifenesin (Mucinex Contr Rel Tab) 1,200 mg Q12 PO 01/04/17 21:00 02/03/17 20:59 01/06/17 08:30 1,200 MG Warfarin Sodium 2.5 mg 2.5 mg Mo@1600 PO 01/08/17 16:00 02/07/17 15:59 Vancomycin HCl/ Sodium Chloride (Vancomycin Inj/ Nss 500ml) 530 ml @ 200 mls/hr TODAY@1200 IV 01/06/17 12:00 01/06/17 16:00 01/06/17 12:27 200 MLS/HR Impression (1) Acute kidney injury (2) Stage 3 chronic kidney disease (3) SIRS (systemic inflammatory response syndrome) (4) Hypotension (5) Cellulitis of left lower extremity (6) ASCVD (arteriosclerotic cardiovascular disease) (7) A-fib (8) Diabetes (9) Sleep apnea Mr. Avery was admitted to the hospital with LLE cellulitis, SIRS, relative hypotension and acute on chronic kidney injury. He has underlying diabetic nephropathy. His baseline creatinine has been 2.0. Blood cultures are currently pending. Urinalysis is positive for blood due to rucker catheter. Proteinuria is present c/w diabetic nephropathy. Patient has been started on empiric IV Vanco & Zosyn therapy PMH - AODM, BMI > 40, HTN, hyperlipidemia, ASCVD s/p CABG w/ AVR, chronic atrial fibrillation, EVENS, gout, kidney stones and recurrent UTI. Recommendations ACUTE KIDNEY INJURY: -- Patient is entering the recovery phase of ATN. He is nonoliguric. Renal function continues to improve creatinine was 2.5 this morning -- Continue to hold Losartan -- avoid further IV fluid, will give 1 dose of Lasix 40 milligram IV now -- Monitor serial PRP -- suggest d/c alka when patient is OOB CHRONIC KIDNEY DISEASE: -- Creatinine 2.0 due to diabetic nephropathy and microvascular disease HYPERTENSION: -- Patient was admitted w/ relative hypotension. Blood pressure is improved. Continue to hold Losartan ANEMIA: -- Hgb has stabilized at 9.6. Monitor. ID: -- Blood cutures + for MRSA. Patient is on IV Vanco as per primary service -- Urine cultures are negative Patient will need physical therapy before going to home as patient feels like he is getting stronger and can go home instead of rehab.
[2017-01-06] MEDS: MoRPHine SULFATE 4 MG/ML 1 ML CARP\\VIAL IV PRN ×2 (13:44→20:56)
--- NOTE | 2017-01-06 14:52 | Progress Note ---
Subjective Date of Service: Jan 06, 2017. Subjective this pt continues to improved daily does have some additional foot pain today at his left 3rd toe, thrush improved, intertrigo also, weakness and deconditioning are worrisome as his morbid obesity limit his own ability to assist in walking with walker Problem List Medical Problems: (1) Cellulitis of left lower extremity Status: Acute (2) Sepsis Status: Acute Review of Systems Constitutional: No chills, No fever Respiratory: No cough, No shortness of breath Cardiac: + edema, No chest pain Abdomen: No diarrhea, No nausea, No pain, No vomiting Musculoskeletal: + joint pain, + muscle pain Male : + hematuria, No dysuria Neurologic: + balance problems, + weakness Psychiatric: No anhedonism, No depression symptoms Objective Vital Signs Date Time Temp Pulse Resp B/P Pulse Ox O2 Delivery O2 Flow Rate FiO2 01/06/17 12:00 Nasal Cannula 2.0 CPAP 01/06/17 11:54 72 20 97 Nasal Cannula 2.0 01/06/17 11:52 36.5 64 20 121/57 93 Nasal Cannula 2.0 01/06/17 08:17 36.7 61 22 125/68 92 01/06/17 08:00 Nasal Cannula 2.0 CPAP 01/06/17 07:38 59 20 98 Nasal Cannula 2.0 01/06/17 04:17 37.1 60 22 125/67 97 Nasal Cannula 2.0 01/06/17 04:15 Nasal Cannula 2.0 01/06/17 00:00 CPAP 1.5 01/05/17 23:30 37.1 57 18 118/67 92 CPAP 01/05/17 20:45 Nasal Cannula 2.0 01/05/17 20:18 51 20 98 Nasal Cannula 3.0 01/05/17 19:50 37.1 56 22 105/61 96 Nasal Cannula 3.0 01/05/17 16:03 53 18 97 Nasal Cannula 2.0 01/05/17 16:00 Nasal Cannula 3.0 CPAP 01/05/17 15:20 36.7 28 122/58 97 Nasal Cannula 3.0 Physical Exam General Appearance: + mild distress, + obese Eyes: PERRL, EOMI Neck: supple, no JVD Respiratory/Chest: chest non-tender, no respiratory distress, + decreased breath sounds Cardiovascular: regular rate, rhythm, + systolic murmur Abdomen: normal bowel sounds, non tender, soft Extremities: + pedal edema, + swelling Neurologic/Psychiatric: alert, oriented x 3 Laboratory Results Last 24 Hours Test 01/05/17 16:03 01/05/17 20:02 01/06/17 05:05 01/06/17 06:58 Bedside Glucose 122 mg/dl 146 mg/dl 114 mg/dl Prothrombin Time 19.8 SECONDS Prothromb Time International Ratio 1.8 Sodium Level 139 mmol/L Potassium Level 4.8 mmol/L Chloride Level 110 mmol/L Carbon Dioxide Level 21 mmol/L Anion Gap 8.0 mmol/L Blood Urea Nitrogen 95 mg/dl Creatinine 2.50 mg/dl Est Creatinine Clear Calc Drug Dose 32.0 ml/min Estimated GFR () 26.9 Estimated GFR (Non- 23.2 BUN/Creatinine Ratio 38.1 Random Glucose 131 mg/dl Calcium Level 8.0 mg/dl Random Vancomycin Level 25.3 mcg/ml Test 01/06/17 11:32 Bedside Glucose 152 mg/dl Assessment and Plan 81-year-old male here with SEPSIS likely from diabetic foot infection, atn AND acute on chronic renal failure and chronic respiratory failure with nocturnal hypoxia requiring CPAP at 11 cm. Sepsis from MRSA, vancomycin with pharmacy dosing now improving renal failure( daptomycin?), since aortic valve TTE performed and negative, and ID consult to recommend duration of antibiotics and likely choice( decision for PICC and outpt treatment will be after all 4 blood cultures are negative) Fungal infection, oral and panniculitis candidal-resolving Nystatin swish and swallow and topical Nystatin powder. Diabetic foot abrasions and likely portals of infection. wound care consultation providing topical care, improving not decided if need imaging of foot to determine if osteomyelitis. antihypertensive medications of Coreg, losartan and Lasix continue to be held, renal function improved will look for nephrology to recommend restarting. Acute renal failure, ATN, slow to improve chronic respiratory failure, Eliezer, did have volume overload, acute respiratory failure, resolved with stopping fluid and using one dose of lasix q.i.d. respiratory with CPAP at night with oxygen bleed-in. Regarding his anticoagulation supra therapeutic held warfarin, one low dose vitamin K, now below 2 resume coumadin and follow checking daily PT/INRs. diabetes holding lispro 75/25 and converted to Lantus 20 b.i.d. with insulin sliding scale and pharmacy adjustment. DVT prevention warfarin. HE IS A FULL CODE.
[2017-01-06] MEDS: WARFARIN SOD 5 MG TAB PO SCH (17:31)
[2017-01-07] VITALS (9 sets, daily range): BP systolic 111–146; BP diastolic 61–80; PULSE 53–64; TEMP 36.5–36.8; O2SAT 93–98
[2017-01-07] MEDS: LEVOTHYROXINE 100 MCG TAB PO SCH (05:59)
[2017-01-07 06:12] LABS: HEMATOCRIT 29.5 % (42-52); MEAN CELL VOLUME 91.9 fL (80-100); MEAN CORPUSCULAR HEMOGLOBIN 30.5 pg (25-34); MEAN CORPUSCULAR HGB CONC 33.2 g/dl (32-36); MEAN PLATELET VOLUME 9.1 fL (7.4-10.4); PLATELET COUNT 328 K/uL (130-400); RED BLOOD COUNT 3.21 M/uL (4.7-6.1); WHITE BLOOD COUNT 11.55 K/uL (4.8-10.8)
[2017-01-07 06:18] LABS: INR 1.8 (0.9-1.1); PROTHROMBIN TIME (PATIENT) 19.5 SECONDS (9.0-12.0)
[2017-01-07 06:43] LABS: BUN/CREATININE RATIO 41.6 (10-20); CALCIUM 8.1 mg/dl (8.5-10.1); POTASSIUM 5.1 mmol/L (3.5-5.1)
[2017-01-07] MEDS: ALBUT/IPRATROP 3MG/0.5MG NEB 3 ML VIAL INH SCH ×4 (07:52→19:36)
[2017-01-07] MEDS: NYSTATIN SUSP 500,000 U/5 ML UDC PO SCH ×4 (08:40→21:41)
[2017-01-07] MEDS: GUAIFENESIN 600 MG TABCR PO SCH ×2 (08:40→21:41)
[2017-01-07] MEDS: EUCERIN CR 120 GM JAR EXT SCH (08:41)
[2017-01-07] MEDS: MICONAZOLE NITRATE POWDER 43 GM EXT SCH (08:41)
[2017-01-07] MEDS: NYSTATIN POWDER 15GM BTL EXT SCH ×2 (08:41→21:43)
[2017-01-07] MEDS: TAMSULOSIN HCL 0.4 MG CAP PO SCH (08:41)
[2017-01-07] MEDS: INSULIN ASPART 100 UNITS/ML 3 ML PEN SC SCH ×4 (08:45→21:44)
[2017-01-07] MEDS: INSULIN GLARGINE SOLOSTAR 100 UNITS/ML 3 ML PEN SC SCH ×2 (08:47→21:44)
[2017-01-07] MEDS: FUROSEMIDE 20 MG TAB PO SCH (09:38)
--- NOTE | 2017-01-07 11:55 | Nephrology Progress Note ---
Nephrology Progress Note Date of Service Jan 07, 2017. Chief Complaint Follow-up for acute kidney injury with history of chronic kidney disease. Subjective Mr. Avery was seen and examined in his room this morning. His overall feeling better, denies any shortness breath or chest pain. Appetite decent. He continues to have some cough but able to expectorate with Mucinex. Renal function improved further creatinine 2 point 0 which seems to be his baseline, electrolyte acceptable. He has been diuresing and has net negative more than 4.5 liters with just 1 dose of Lasix 40 IV yesterday. Blood pressure has been stable. Review of Systems A complete review of systems was performed. Pertinent positives are noted above. All other systems are negative. Vital Signs Last 8 Hrs Date Time Temp Pulse Resp B/P Pulse Ox O2 Delivery O2 Flow Rate FiO2 01/07/17 08:00 Room Air 2.0 Nasal Cannula CPAP 01/07/17 07:59 36.5 54 22 127/70 93 Nasal Cannula 2.0 01/07/17 07:41 59 22 95 BiPAP/CPAP 2.0 01/07/17 04:35 36.6 64 18 111/61 97 CPAP 01/07/17 04:00 Nasal Cannula 2.0 CPAP I & O 24-Hour Column 01/07/17 08:00 Intake Total 490 ml Output Total 4200 ml Balance -3710 ml Last Recorded Weight Weight (Kilograms): 136.000 Physical Exam GENERAL: Elderly male, AAA x 3, pleasant, healthy-appearing, not in any distress. NECK: Supple, no JVD. RESPIRATORY: Normal breathing efforts, no accessory muscle use, crackles bilateral bases. CARDIOVASCULAR: S1, S2 normal, rate rhythm regular. EXTREMITY: No lower extremity edema NEURO: speech fluent. 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 Originally from [employer]. 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 Never a smoker Laboratory Results Past 24 Hours 01/07/17 05:30 01/07/17 05:30 Test 01/06/17 11:32 01/06/17 20:04 01/07/17 05:30 01/07/17 06:59 Bedside Glucose 152 mg/dl (70-99) 220 mg/dl (70-99) 133 mg/dl (70-99) Red Blood Count 3.21 M/uL (4.7-6.1) Mean Corpuscular Volume 91.9 fL (80-100) Mean Corpuscular Hemoglobin 30.5 pg (25-34) Mean Corpuscular Hemoglobin Concent 33.2 g/dl (32-36) RDW Standard Deviation 51.0 fL (36.4-46.3) RDW Coefficient of Variation 14.9 % (11.5-14.5) Mean Platelet Volume 9.1 fL (7.4-10.4) Prothrombin Time 19.5 SECONDS (9.0-12.0) Prothromb Time International Ratio 1.8 (0.9-1.1) Anion Gap 8.0 mmol/L (3-11) Est Creatinine Clear Calc Drug Dose 39.7 ml/min Estimated GFR () 35.2 Estimated GFR (Non- 30.4 BUN/Creatinine Ratio 41.6 (10-20) Calcium Level 8.1 mg/dl (8.5-10.1) Random Vancomycin Level 25.5 mcg/ml Allergies Coded Allergies: Chlorpheniramine (Unverified Allergy, Unknown, ., 01/02/17) Phenylpropanolamine (Unverified Allergy, Unknown, ., 01/02/17) Medications Current Inpatient Medications Medications (Trade) Dose Ordered Sig/Sukhwinder Route Start Time Stop Time Status Last Admin Dose Admin Acetaminophen (Tylenol Tab) 650 mg Q4H PRN PO 01/02/17 09:30 02/01/17 09:29 Al Hydrox/Mg Hydrox/Simethicone (Maalox Max Susp) 15 ml Q4H PRN PO 01/02/17 09:30 02/01/17 09:29 Magnesium Hydroxide (Milk Of Magnesia Susp) 30 ml Q12H PRN PO 01/02/17 09:30 02/01/17 09:29 01/06/17 08:35 30 ML Ondansetron HCl (Zofran Inj) 4 mg Q6H PRN IV 01/02/17 09:30 02/01/17 09:29 Nitroglycerin (Nitrostat Tab) 0.4 mg UD PRN SL 01/02/17 09:30 02/01/17 09:29 Polyethylene (Miralax Powder Packet) 17 gm DAILY PRN PO 01/02/17 09:30 02/01/17 09:29 01/06/17 08:35 17 GM Albuterol/ Ipratropium (Duoneb) 3 ml QIDR INH 01/02/17 12:00 02/01/17 11:59 01/07/17 07:52 3 ML Levothyroxine Sodium (Synthroid Tab) 100 mcg DAILYBB PO 01/03/17 06:00 02/02/17 08:59 01/07/17 05:59 100 MCG Tamsulosin HCl (Flomax Cap) 0.4 mg DAILY PO 01/03/17 09:00 02/02/17 08:59 01/07/17 08:41 0.4 MG Nystatin (Mycostatin Powder) 1 appln BID EXT 01/02/17 21:00 02/01/17 20:59 01/07/17 08:41 1 APPLN Nystatin (Mycostatin Susp) 5 ml QID PO 01/02/17 13:00 01/12/17 12:59 01/07/17 08:40 5 ML Morphine Sulfate (MoRPHine SULFATE INJ) 2 mg Q4H PRN IV 01/02/17 09:30 01/16/17 09:29 01/05/17 08:01 2 MG Morphine Sulfate (MoRPHine SULFATE INJ) 4 mg Q4H PRN IV 01/02/17 09:30 01/16/17 09:29 01/06/17 20:56 4 MG Oxycodone HCl (Roxicodone Immediate Rel Tab) 10 mg Q6 PRN PO 01/02/17 09:30 01/16/17 09:29 01/04/17 15:22 10 MG Insulin Aspart (novoLOG ASPART) SLIDING SCALE PARAMETER ACHS SC 01/02/17 11:00 02/01/17 10:59 01/07/17 08:45 6 UNITS Insulin Glargine (Lantus Solostar Pen) 20 unit BID SC 01/02/17 21:00 02/01/17 20:59 01/07/17 08:47 20 UNIT Vancomycin HCl (Consult) 1 ea UD PRN N/A 01/02/17 10:00 02/01/17 09:59 Miconazole Nitrate (Desenex Powder) 1 appln DAILY EXT 01/03/17 09:00 5/19/17 08:59 01/07/17 08:41 1 APPLN Multi-Ingredient Ointment (Eucerin Unscented Cr) 1 appln DAILY EXT 01/03/17 09:00 02/02/17 08:59 01/07/17 08:41 1 APPLN Glucose (Glucose 40% Gel) 15-30 GRAMS 15 GRAMS... UD PRN PO 01/02/17 13:15 02/01/17 13:14 Glucose (Glucose Chew Tab) 4-8 Tablets 4 Tabl... UD PRN PO 01/02/17 13:15 02/01/17 13:14 Dextrose (Dextrose 50% 50ML Syringe) 25-50ML OF 50% DW IV FOR... UD PRN IV 01/02/17 13:15 02/01/17 13:14 Glucagon (Glucagon Inj) 1 mg UD PRN SQ 01/02/17 13:15 02/01/17 13:14 Guaifenesin (Mucinex Contr Rel Tab) 1,200 mg Q12 PO 01/04/17 21:00 02/03/17 20:59 01/07/17 08:40 1,200 MG Warfarin Sodium (Coumadin Tab) 4 mg DAILY@1600 PO 01/07/17 16:00 02/06/17 15:59 Impression (1) Acute kidney injury (2) Stage 3 chronic kidney disease (3) SIRS (systemic inflammatory response syndrome) (4) Hypotension (5) Cellulitis of left lower extremity (6) ASCVD (arteriosclerotic cardiovascular disease) (7) A-fib (8) Diabetes (9) Sleep apnea Mr. Avery was admitted to the hospital with LLE cellulitis, SIRS, relative hypotension and acute on chronic kidney injury. He has underlying diabetic nephropathy. His baseline creatinine has been 2.0. Blood cultures are currently pending. Urinalysis is positive for blood due to rucker catheter. Proteinuria is present c/w diabetic nephropathy. Patient has been started on empiric IV Vanco & Zosyn therapy PMH - AODM, BMI > 40, HTN, hyperlipidemia, ASCVD s/p CABG w/ AVR, chronic atrial fibrillation, EVENS, gout, kidney stones and recurrent UTI. Recommendations ACUTE KIDNEY INJURY: -- resolved, creatinine 2.0 which seems to be his baseline. He seems to be in post ATN diuresis phase now and has been having high urine output -- will continue to monitor renal function with daily renal panel -- will change diuretics to his home regimen of Lasix 20 milligram p.o. daily CHRONIC KIDNEY DISEASE: -- Creatinine 2.0 due to diabetic nephropathy and microvascular disease HYPERTENSION: -- Patient was admitted w/ relative hypotension. Blood pressure is improved. Continue to hold Losartan ANEMIA: -- Hgb has stabilized at 9.6. Monitor. ID: -- Blood cutures + for MRSA. Patient is on IV Vanco as per primary service -- Urine cultures are negative Patient will need physical therapy before going to home as patient feels like he is getting stronger and can go home instead of rehab.
--- NOTE | 2017-01-07 12:47 | Pharmacy Progress Note ---
Pharmacy Antibiotic Prog Note Date of Service Jan 07, 2017. Subjective The patient is currently receiving IV Vancomycin dosing based on random levels due to impaired/unstable renal function. The patient is currently on day #6 of IV therapy. Objective Height (Feet): 5 Height (Inches): 9.00 Weight (Kilograms): 136.000 Levels: Item Value Date Time Random Vancomycin Level 12.1 mcg/ml 01/03/17 1050 Random Vancomycin Level 22.8 mcg/ml 01/04/17 0625 Random Vancomycin Level 22.8 mcg/ml 01/05/17 0548 Random Vancomycin Level 25.3 mcg/ml 01/06/17 0505 Random Vancomycin Level 25.5 mcg/ml 01/07/17 0530 Lab Results (24hrs): Laboratory Tests Test 01/07/17 05:30 01/07/17 11:57 BUN/Creatinine Ratio 41.6 Blood Urea Nitrogen 83 mg/dl Creatinine 2.00 mg/dl White Blood Count 11.55 K/uL Micro Results: Item Value Date Time Blood Culture - Final Complete 01/02/17 0740 Blood Staphylococcus Aureus Blood Culture - Preliminary Resulted 01/02/17 0745 Blood Staphylococcus Aureus Urine Culture - Final Complete 01/02/17 1211 Urine,Catheterized NO GROWTH - LESS THAN 1,000 COLONIES/ML Blood Culture - Preliminary Resulted 01/05/17 1128 Blood NO GROWTH TO DATE. Blood Culture - Preliminary Resulted 01/05/17 1132 Blood NO GROWTH TO DATE. RUN DATE: 01/04/17 [facility] LAB PAGE 1 RUN TIME: 815 Specimen Inquiry PATIENT: SUE MANCINI III LOC: [facility] U # : [id number] AGE/SX: 81/M ROOM: 30 REG : 01/02/[address]: Shakeel Tanner M : 1935 BED: 2 DIS : STATUS: ADM IN TLOC: SPEC #: [id number] CHANTAL: 01/02/17 STATUS: RES REQ #: [id number] RECD: 01/02/[address]: Houston Luis M.D. SOURCE: BLOOD ENTR: 01/02/17 [facility] DR: Winston Harper M.D. SPDESC: ORDERED: BLOOD CULTURE COMMENTS: Comments to Supervisor [employer] SAME TIME DIFFERENT SITES Procedure Result Verified Site BLD CULT Preliminary 01/04/17 Organism 1 STAPHYLOCOCCUS AUREUS SENS SENSITIVITY TO FOLLOW SENSITIVITY RESULT INDICATES A METHICILLIN RESISTANT STAPH. AUREUS. PHONED TO RICHARD ALEXANDRA ON 01/04/17 AT 0815 BY Blanca Puentes. Results were verbalized back to GINA. RESULTS WERE ALSO CALLED TO [facility] INFECTION CONTROL ANSWERING MACHINE ON 01/04/17 BY GINA. Phoned Positive Blood Culture Gram Stain Report to CHRISTIANO EL on 01/02/17 At 2101 By SHARMAINE. Results were verbalized back to SHARMAINE. 1. STAPHYLOCOCCUS AUREUS Target Route Dose RX AB Cost M.I.C. IQ ------ ----- ------ -- ------ -------- - ------ TRIMET/SULFA S <=0.5/ 9.5 * OXACILLIN R * >2 VANCOMYCIN S 1 ERYTHROMYCIN R >4 TETRACYCLINE S <=4 CLINDAMYCIN R <=0.5 DAPTOMYCIN S <=0.5 RIFAMPIN S <=1 S = SENSITIVE I = INTERMEDIATE R = RESISTANT Recent Pertinent Medications Item Value Date Time Vancomycin HCl 540 ml @ 200 mls/hr 01/02/17 1000 2000 mg/Sodium TODAY@1000 ONCE/IV 01/02/17 1029 Chloride Vancomycin HCl 540 ml @ 200 mls/hr 01/03/17 1500 2000 mg/Sodium TODAY@1500 ONCE/IV 01/03/17 1522 Chloride Vancomycin HCl 270 ml @ 125 mls/hr 01/04/17 1500 1000 mg/Sodium TODAY@1500 ONCE/IV 01/04/17 1522 Chloride Vancomycin HCl 530 ml @ 200 mls/hr 01/05/17 1100 1500 mg/Sodium NOW ONCE/IV 01/05/17 1135 Chloride Vancomycin HCl 530 ml @ 200 mls/hr 01/06/17 1200 1500 mg/Sodium TODAY@1200/IV 01/06/17 1227 Chloride Vancomycin HCl 530 ml @ 200 mls/hr 01/07/17 1300 1500 mg/Sodium DAILY@1200/IV Chloride Assessment & Plan Vancomycin * 81 yo M with MRSA bacteremia likely from left foot & leg infection associated with DM * Goal peak level: 30-40mcg/mL * Goal trough level: 15-20mcg/mL * Random level this AM indicates therapeutic level & likely therapeutic trough * Significant improvement in renal function overnight (SCr 3.4-->2.5-->2mg/dL) * Begin scheduled maintenance dosing due to SCr returning to baseline * Initiate Vancomycin 1500mg IV q24h (~11mg/kg for BMI 44kg/m2) * Trough level ordered for: 01/09/17 1200 dose Pharmacy will continue to follow and will adjust dose/frequency as necessary. Thank you
[2017-01-07 13:18] LABS: BUN/CREATININE RATIO 38.2 (10-20); CALCIUM 8.3 mg/dl (8.5-10.1); POTASSIUM 5.4 mmol/L (3.5-5.1)
[2017-01-07] MEDS: VANCOMYCIN INJ 1,500 MG in SODIUM CHLORIDE 0.9% 500ML 500 ML IV SCH (13:36)
--- NOTE | 2017-01-07 15:06 | Progress Note ---
Subjective Date of Service: Jan 07, 2017. Subjective pt states he feels improved, renal function is improving also, but his third toe wound is sluggishly improving at best, no oral pain, thrush is gone, and intertrigo better Problem List Medical Problems: (1) Cellulitis of left lower extremity Status: Acute (2) Sepsis Status: Acute Review of Systems Constitutional: + fatigue, + weakness, No chills, No fever Respiratory: + cough, + sputum, No dyspnea on exertion, No shortness of breath Cardiac: + edema, No chest pain Abdomen: No diarrhea, No nausea, No pain, No vomiting Musculoskeletal: + joint pain, + muscle pain Male : No dysuria, No urinary frequency Psychiatric: No depression symptoms Skin: + color change, + rash Objective Vital Signs Date Time Temp Pulse Resp B/P Pulse Ox O2 Delivery O2 Flow Rate FiO2 01/07/17 12:00 Room Air 2.0 Nasal Cannula CPAP 01/07/17 11:39 36.8 53 18 146/80 94 Nasal Cannula 2.0 01/07/17 11:36 58 20 98 Nasal Cannula 2.0 01/07/17 08:00 Room Air 2.0 Nasal Cannula CPAP 01/07/17 07:59 36.5 54 22 127/70 93 Nasal Cannula 2.0 01/07/17 07:41 59 22 95 BiPAP/CPAP 2.0 01/07/17 04:35 36.6 64 18 111/61 97 CPAP 01/07/17 04:00 Nasal Cannula 2.0 CPAP 01/07/17 00:00 Nasal Cannula 2.0 CPAP 01/06/17 23:35 37.0 56 20 105/54 94 Nasal Cannula 2.0 Humidified Oxygen 01/06/17 20:00 Nasal Cannula 2.0 CPAP 01/06/17 19:30 36.5 56 24 119/57 99 Nasal Cannula 2.0 01/06/17 19:19 68 22 95 Nasal Cannula 2.0 01/06/17 16:00 Nasal Cannula 2.0 CPAP 01/06/17 15:55 36.4 61 24 119/64 96 Nasal Cannula 2.0 01/06/17 15:50 54 22 95 Nasal Cannula 2.0 Physical Exam General Appearance: WD/WN, + moderate distress, + obese Neck: supple, no JVD Respiratory/Chest: + decreased breath sounds, + rhonchi Cardiovascular: regular rate, rhythm, no murmur Abdomen: normal bowel sounds, non tender, soft Extremities: + pedal edema, + swelling, + pertinent finding (left third toe remains reddened with soft distal ulcer) Neurologic/Psychiatric: alert, oriented x 3, + pertinent finding (peripheral neuropathy) Laboratory Results Last 24 Hours Test 01/06/17 20:04 01/07/17 05:30 01/07/17 06:59 01/07/17 11:19 Bedside Glucose 220 mg/dl 133 mg/dl 225 mg/dl White Blood Count 11.55 K/uL Red Blood Count 3.21 M/uL Hemoglobin 9.8 g/dL Hematocrit 29.5 % Mean Corpuscular Volume 91.9 fL Mean Corpuscular Hemoglobin 30.5 pg Mean Corpuscular Hemoglobin Concent 33.2 g/dl RDW Standard Deviation 51.0 fL RDW Coefficient of Variation 14.9 % Platelet Count 328 K/uL Mean Platelet Volume 9.1 fL Prothrombin Time 19.5 SECONDS Prothromb Time International Ratio 1.8 Sodium Level 142 mmol/L Potassium Level 5.1 mmol/L Chloride Level 112 mmol/L Carbon Dioxide Level 22 mmol/L Anion Gap 8.0 mmol/L Blood Urea Nitrogen 83 mg/dl Creatinine 2.00 mg/dl Est Creatinine Clear Calc Drug Dose 39.7 ml/min Estimated GFR () 35.2 Estimated GFR (Non- 30.4 BUN/Creatinine Ratio 41.6 Random Glucose 136 mg/dl Calcium Level 8.1 mg/dl Random Vancomycin Level 25.5 mcg/ml Test 01/07/17 12:42 Sodium Level 141 mmol/L Potassium Level 5.4 mmol/L Chloride Level 111 mmol/L Carbon Dioxide Level 24 mmol/L Anion Gap 6.0 mmol/L Blood Urea Nitrogen 76 mg/dl Creatinine 2.00 mg/dl Est Creatinine Clear Calc Drug Dose 39.7 ml/min Estimated GFR () 35.2 Estimated GFR (Non- 30.4 BUN/Creatinine Ratio 38.2 Random Glucose 258 mg/dl Calcium Level 8.3 mg/dl Assessment and Plan 81-year-old male here with SEPSIS from diabetic foot infection, atn AND acute on chronic renal failure and chronic respiratory failure with nocturnal hypoxia requiring CPAP at 11 cm. Sepsis from MRSA, vancomycin with pharmacy dosing now improving renal failure( daptomycin?), since aortic valve TTE performed and negative, and ID consult to recommend duration of antibiotics and likely choice( decision for PICC and outpt treatment will be after all 4 blood cultures are negative), toe is slow to improve will have MRI to eval for osteomyelitis and if seen will need surgical evaluation Fungal infection, oral and panniculitis candidal-resolving Nystatin swish and swallow and topical Nystatin powder. Diabetic foot abrasions and likely portals of infection. wound care consultation providing topical care antihypertensive medications of Coreg, losartan to be held, renal function improved will look for nephrology to recommend restarting lasix 01/07. Acute renal failure, ATN, improving chronic respiratory failure, DuoNebs, did have volume overload, acute respiratory failure, resolved with stopping fluid and using one dose of lasix q.i.d. respiratory with CPAP at night with oxygen bleed-in. Regarding his anticoagulation supra therapeutic held warfarin, one low dose vitamin K, now below 2 resume coumadin and follow checking daily PT/INRs. diabetes holding lispro 75/25 and converted to Lantus 20 b.i.d. with insulin sliding scale and pharmacy adjustment. DVT prevention warfarin. HE IS A FULL CODE.
[2017-01-07] MEDS: WARFARIN SOD 4 MG TAB PO SCH (16:00)
[2017-01-07] MEDS: OXYCODONE HCL IR 5 MG TAB (IMMEDIATE RELEASE) PO PRN (21:53)
[2017-01-08] VITALS (10 sets, daily range): BP systolic 126–163; BP diastolic 58–81; PULSE 59–76; TEMP 36.4–37.1; O2SAT 87–99
[2017-01-08] MEDS: LEVOTHYROXINE 100 MCG TAB PO SCH (06:13)
--- NOTE | 2017-01-08 06:58 | DIAGNOSTIC IMAGING REPORT ---
MRI OF THE LEFT FOREFOOT NO CONTRAST CLINICAL HISTORY: Left third toe pain possible osteomyelitis. COMPARISON STUDY: No previous studies for comparison. FINDINGS: Imaging was performed in the sagittal, coronal, and axial planes. The study is significantly limited secondary to motion artifact. There is a soft tissue ulceration at the level of the dorsal aspect of the distal phalanx of the third toe. There is T1 and T2 marrow edema involving the distal phalanx of the third toe. There is a small amount of fluid present within the distal interphalangeal joint of third toe. The findings are indicative of osteomyelitis of the distal phalanx. There is diffuse dorsal soft tissue edema within the foot. IMPRESSION: 1. T1 and T2 marrow edema involving the distal phalanx of the third toe. There is an associated dorsal soft tissue ulceration. The findings are indicative of acute osteomyelitis. Electronically signed by: Chris Odonnell M.D. 01/08/2017 6:55 AM Dictated Date/Time: 01/08/2017 6:50 AM
[2017-01-08 07:04] LABS: INR 2.7 (0.9-1.1); PROTHROMBIN TIME (PATIENT) 30.1 SECONDS (9.0-12.0)
[2017-01-08] MEDS: ALBUT/IPRATROP 3MG/0.5MG NEB 3 ML VIAL INH SCH ×4 (07:12→19:29)
[2017-01-08 07:28] LABS: CREATININE 1.6 mg/dl (0.60-1.40)
[2017-01-08] MEDS: NYSTATIN SUSP 500,000 U/5 ML UDC PO SCH ×4 (08:15→20:05)
[2017-01-08] MEDS: GUAIFENESIN 600 MG TABCR PO SCH ×2 (08:15→20:06)
[2017-01-08] MEDS: FUROSEMIDE 20 MG TAB PO SCH (08:15)
[2017-01-08] MEDS: TAMSULOSIN HCL 0.4 MG CAP PO SCH (08:15)
[2017-01-08] MEDS: MICONAZOLE NITRATE POWDER 43 GM EXT SCH (08:16)
[2017-01-08] MEDS: NYSTATIN POWDER 15GM BTL EXT SCH ×2 (08:17→20:05)
[2017-01-08] MEDS: EUCERIN CR 120 GM JAR EXT SCH (08:17)
[2017-01-08] MEDS: INSULIN GLARGINE SOLOSTAR 100 UNITS/ML 3 ML PEN SC SCH ×2 (08:22→21:28)
[2017-01-08] MEDS: INSULIN ASPART 100 UNITS/ML 3 ML PEN SC SCH ×4 (08:22→21:29)
--- NOTE | 2017-01-08 08:29 | Progress Note ---
Subjective Date of Service: Jan 08, 2017. Subjective Pt evaluation today including: conversation w/ patient, physical exam, chart review Voiding: rucker catheter in place Problem List Medical Problems: (1) Cellulitis of left lower extremity Status: Acute (2) Sepsis Status: Acute Review of Systems Constitutional: + weakness Respiratory: + wheezing Abdomen: No GI bleeding, No constipation, No diarrhea, No nausea, No pain, No problem reported, No see HPI, No vomiting Endo: No excessive thirst, No excessive urination, No fatigue, No problem reported, No see HPI Medications Medications (Trade) Dose Ordered Sig/Sukhwinder Route Start Time Stop Time Status Last Admin Dose Admin Warfarin Sodium (Coumadin Tab) 4 mg DAILY@1600 PO 01/07/17 16:00 02/06/17 15:59 01/07/17 16:00 4 MG Furosemide 20 mg 20 mg QAM PO 01/07/17 09:38 02/06/17 09:37 01/07/17 09:38 20 MG Vancomycin HCl/ Sodium Chloride (Vancomycin Inj/ Nss 500ml) 530 ml @ 200 mls/hr DAILY@1200 IV 01/07/17 13:00 01/21/17 12:59 01/07/17 13:36 200 MLS/HR Objective Vital Signs Date Time Temp Pulse Resp B/P Pulse Ox O2 Delivery O2 Flow Rate FiO2 01/08/17 07:23 36.5 67 22 139/64 95 Nasal Cannula 3.0 01/08/17 07:12 61 20 96 Nasal Cannula 2.0 01/08/17 04:00 Nasal Cannula 2.0 CPAP 01/08/17 03:45 37.0 63 22 129/74 97 Nasal Cannula 3.0 01/08/17 00:14 36.7 76 22 163/69 90 CPAP 3.0 01/08/17 00:00 Nasal Cannula 2.0 01/07/17 20:00 Nasal Cannula 2.0 01/07/17 19:54 36.5 61 24 136/73 96 Nasal Cannula 2.0 01/07/17 19:36 64 20 96 Nasal Cannula 2.0 01/07/17 16:17 36.5 56 28 136/65 96 Nasal Cannula 2.0 01/07/17 16:00 Room Air 2.0 Nasal Cannula CPAP 01/07/17 15:40 64 20 98 Nasal Cannula 2.0 01/07/17 12:00 Room Air 2.0 Nasal Cannula CPAP 01/07/17 11:39 36.8 53 18 146/80 94 Nasal Cannula 2.0 01/07/17 11:36 58 20 98 Nasal Cannula 2.0 Physical Exam General Appearance: WD/WN Eyes: PERRL, EOMI ENT: hearing grossly normal Neck: supple, no adenopathy Respiratory/Chest: chest non-tender, + wheezing Cardiovascular: + systolic murmur, + irregularly irregular, + pertinent finding (chronic leg edema) Abdomen: normal bowel sounds, non tender, soft Extremities: + pedal edema, + pertinent finding (right foot in dressing. ) Neurologic/Psychiatric: surgical tech II-XII nml as tested, alert, normal mood/affect, oriented x 3 Skin: + pertinent finding (increased pigmentation and thickening both legs secondary to chronic venous stasis.) Laboratory Results Last 24 Hours Test 01/07/17 11:19 01/07/17 12:42 01/07/17 16:00 01/07/17 20:14 Bedside Glucose 225 mg/dl 180 mg/dl 222 mg/dl Sodium Level 141 mmol/L Potassium Level 5.4 mmol/L Chloride Level 111 mmol/L Carbon Dioxide Level 24 mmol/L Anion Gap 6.0 mmol/L Blood Urea Nitrogen 76 mg/dl Creatinine 2.00 mg/dl Est Creatinine Clear Calc Drug Dose 39.7 ml/min Estimated GFR () 35.2 Estimated GFR (Non- 30.4 BUN/Creatinine Ratio 38.2 Random Glucose 258 mg/dl Calcium Level 8.3 mg/dl Test 01/08/17 06:18 01/08/17 06:24 Prothrombin Time 30.1 SECONDS Prothromb Time International Ratio 2.7 Creatinine 1.60 mg/dl Est Creatinine Clear Calc Drug Dose 49.4 ml/min Estimated GFR () 46.1 Estimated GFR (Non- 39.8 Bedside Glucose 130 mg/dl MRI OF THE LEFT FOREFOOT NO CONTRAST CLINICAL HISTORY: Left third toe pain possible osteomyelitis. COMPARISON STUDY: No previous studies for comparison. FINDINGS: Imaging was performed in the sagittal, coronal, and axial planes. The study is significantly limited secondary to motion artifact. There is a soft tissue ulceration at the level of the dorsal aspect of the distal phalanx of the third toe. There is T1 and T2 marrow edema involving the distal phalanx of the third toe. There is a small amount of fluid present within the distal interphalangeal joint of third toe. The findings are indicative of osteomyelitis of the distal phalanx. There is diffuse dorsal soft tissue edema within the foot. IMPRESSION: 1. T1 and T2 marrow edema involving the distal phalanx of the third toe. There is an associated dorsal soft tissue ulceration. The findings are indicative of acute osteomyelitis. Electronically signed by: Chris Odonnell M.D. 01/08/2017 6:55 AM Dictated Date/Time: 01/08/2017 6:50 AM Name: SUE MANCINI III Study Date: 01/04/2017 09:46 AM BP: 95/ 52 mmHg Patient Location: [facility]\S\S236\S\1 HR: 59 : 1935 (M/d/yyyy) Gender: Male Height: 69 in Age: 81 yrs Ethnicity: [place] Weight: 301 lb Ordering Physician: Shakeel Tanner Referring Physician: Self, Referred Performed By: Hakeem Carrasquillo [facility] Reason For Study: Eval for Endocarditis BSA: 2.5 m2 -- Conclusions -- 1. Normal left ventricular size and systolic function. EF 55-60%. Inferior base appears hypo to akinetic. Mild concentric left ventricular hypertrophy. Septal flattening during diastole suggests right ventricular volume overload. 2. Right ventricle not well visualized but appears dilated with reduced systolic function. 3. Moderate biatrial dilation. 4. 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 5. Elevated mitral velocity and mean gradient, suggesting no more than mild mitral stenosis. There is mild mitral regurgitation. 6. Cannot rule out valvular vegetation. 7. Severe pulmonary hypertension suggested with estimated right ventricular systolic pressure of 67 mmHg. 8. Technically difficult study, enhanced with IV Definity. 9. No prior study available for comparison. Assessment and Plan 81-year-old male here with SEPSIS from diabetic foot infection, atn AND acute on chronic renal failure and chronic respiratory failure with nocturnal hypoxia requiring CPAP at 11 cm. Sepsis from MRSA, vancomycin with pharmacy dosing now improving renal failure; since aortic valve TTE performed and negative, and ID consult to recommend duration of antibiotics and likely choice( decision for PICC and outpt treatment will be after all 4 blood cultures are negative). MRI left foot done y.day shows osteomyelitis and hence will consult Surgery. Pt will need PICC line for IV abx. Most recent blood cultures are negative. Fungal infection, oral and panniculitis candidal-resolving Nystatin swish and swallow and topical Nystatin powder. Diabetic foot abrasions and likely portals of infection. wound care consultation providing topical care antihypertensive medications of Coreg, losartan to be held, renal function improved will look for nephrology to recommend restarting lasix 01/07. Acute renal failure, ATN, improving chronic respiratory failure, DuoNemira, did have volume overload, acute respiratory failure, resolved with stopping fluid and using one dose of lasix q.i.d. respiratory with CPAP at night with oxygen Regarding his anticoagulation supra therapeutic held warfarin, one low dose vitamin K, now below 2 resume coumadin and follow checking daily PT/INRs. diabetes holding lispro 75/25 and converted to Lantus 20 b.i.d. with insulin sliding scale and pharmacy adjustment. DVT prevention warfarin. HE IS A FULL CODE.
--- NOTE | 2017-01-08 10:09 | Infectious Disease Progress Nt ---
Progress Note Date of Service Jan 08, 2017. Subjective Pt evaluation today including: conversation w/ patient, physical exam, chart review, lab review, review of studies, conversation w/ bus info consultant, review of inpatient medication list Offers no new complaints today. Remains afebrile. Renal function improving. F/U blood cultures remain negative. All Other Systems: Reviewed and Negative Medications Current Inpatient Medications Medications (Trade) Dose Ordered Sig/Sukhwinder Route Start Time Stop Time Status Last Admin Dose Admin Acetaminophen (Tylenol Tab) 650 mg Q4H PRN PO 01/02/17 09:30 02/01/17 09:29 Al Hydrox/Mg Hydrox/Simethicone (Maalox Max Susp) 15 ml Q4H PRN PO 01/02/17 09:30 02/01/17 09:29 Magnesium Hydroxide (Milk Of Magnesia Susp) 30 ml Q12H PRN PO 01/02/17 09:30 02/01/17 09:29 01/06/17 08:35 30 ML Ondansetron HCl (Zofran Inj) 4 mg Q6H PRN IV 01/02/17 09:30 02/01/17 09:29 Nitroglycerin (Nitrostat Tab) 0.4 mg UD PRN SL 01/02/17 09:30 02/01/17 09:29 Polyethylene (Miralax Powder Packet) 17 gm DAILY PRN PO 01/02/17 09:30 02/01/17 09:29 01/06/17 08:35 17 GM Albuterol/ Ipratropium (Duoneb) 3 ml QIDR INH 01/02/17 12:00 02/01/17 11:59 01/08/17 07:12 3 ML Levothyroxine Sodium (Synthroid Tab) 100 mcg DAILYBB PO 01/03/17 06:00 02/02/17 08:59 01/08/17 06:13 100 MCG Tamsulosin HCl (Flomax Cap) 0.4 mg DAILY PO 01/03/17 09:00 02/02/17 08:59 01/08/17 08:15 0.4 MG Nystatin (Mycostatin Powder) 1 appln BID EXT 01/02/17 21:00 02/01/17 20:59 01/08/17 08:17 1 APPLN Nystatin (Mycostatin Susp) 5 ml QID PO 01/02/17 13:00 01/12/17 12:59 01/08/17 08:15 5 ML Morphine Sulfate (MoRPHine SULFATE INJ) 2 mg Q4H PRN IV 01/02/17 09:30 01/16/17 09:29 01/05/17 08:01 2 MG Morphine Sulfate (MoRPHine SULFATE INJ) 4 mg Q4H PRN IV 01/02/17 09:30 01/16/17 09:29 01/06/17 20:56 4 MG Oxycodone HCl (Roxicodone Immediate Rel Tab) 10 mg Q6 PRN PO 01/02/17 09:30 01/16/17 09:29 01/07/17 21:53 10 MG Insulin Aspart (novoLOG ASPART) SLIDING SCALE PARAMETER ACHS SC 01/02/17 11:00 02/01/17 10:59 01/08/17 08:22 4 UNITS Insulin Glargine (Lantus Solostar Pen) 20 unit BID SC 01/02/17 21:00 02/01/17 20:59 01/08/17 08:22 20 UNIT Vancomycin HCl (Consult) 1 ea UD PRN N/A 01/02/17 10:00 02/01/17 09:59 Miconazole Nitrate (Desenex Powder) 1 appln DAILY EXT 01/03/17 09:00 02/02/17 08:59 01/08/17 08:16 1 APPLN Multi-Ingredient Ointment (Eucerin Unscented Cr) 1 appln DAILY EXT 01/03/17 09:00 02/02/17 08:59 01/08/17 08:17 1 APPLN Glucose (Glucose 40% Gel) 15-30 GRAMS 15 GRAMS... UD PRN PO 01/02/17 13:15 02/01/17 13:14 Glucose (Glucose Chew Tab) 4-8 Tablets 4 Tabl... UD PRN PO 01/02/17 13:15 02/01/17 13:14 Dextrose (Dextrose 50% 50ML Syringe) 25-50ML OF 50% DW IV FOR... UD PRN IV 01/02/17 13:15 02/01/17 13:14 Glucagon (Glucagon Inj) 1 mg UD PRN SQ 01/02/17 13:15 02/01/17 13:14 Guaifenesin (Mucinex Contr Rel Tab) 1,200 mg Q12 PO 01/04/17 21:00 02/03/17 20:59 01/08/17 08:15 1,200 MG Warfarin Sodium (Coumadin Tab) 4 mg DAILY@1600 PO 01/07/17 16:00 02/06/17 15:59 01/07/17 16:00 4 MG Furosemide 20 mg 20 mg QAM PO 01/07/17 09:38 02/06/17 09:37 01/08/17 08:15 20 MG Vancomycin HCl/ Sodium Chloride (Vancomycin Inj/ Nss 500ml) 530 ml @ 200 mls/hr DAILY@1200 IV 01/07/17 13:00 01/21/17 12:59 01/07/17 13:36 200 MLS/HR Objective Vital Signs Date Time Temp Pulse Resp B/P Pulse Ox O2 Delivery O2 Flow Rate FiO2 01/08/17 07:23 36.5 67 22 139/64 95 Nasal Cannula 3.0 01/08/17 07:12 61 20 96 Nasal Cannula 2.0 01/08/17 04:00 Nasal Cannula 2.0 CPAP 01/08/17 03:45 37.0 63 22 129/74 97 Nasal Cannula 3.0 01/08/17 00:14 36.7 76 22 163/69 90 CPAP 3.0 01/08/17 00:00 Nasal Cannula 2.0 01/07/17 20:00 Nasal Cannula 2.0 01/07/17 19:54 36.5 61 24 136/73 96 Nasal Cannula 2.0 01/07/17 19:36 64 20 96 Nasal Cannula 2.0 01/07/17 16:17 36.5 56 28 136/65 96 Nasal Cannula 2.0 01/07/17 16:00 Room Air 2.0 Nasal Cannula CPAP 01/07/17 15:40 64 20 98 Nasal Cannula 2.0 01/07/17 12:00 Room Air 2.0 Nasal Cannula CPAP 01/07/17 11:39 36.8 53 18 146/80 94 Nasal Cannula 2.0 01/07/17 11:36 58 20 98 Nasal Cannula 2.0 Physical Exam General Appearance: WD/WN, no apparent distress Eyes: normal inspection, EOMI, sclerae normal ENT: normal ENT inspection, pharynx normal Neck: supple, no adenopathy, trachea midline Respiratory/Chest: chest non-tender, no respiratory distress, no accessory muscle use, + wheezing Cardiovascular: no gallop, no murmur, + irregularly irregular Abdomen: normal bowel sounds, non tender, soft, no organomegaly Extremities: non-tender, no calf tenderness Neurologic/Psychiatric: alert, oriented x 3 Skin: normal color, no rash, + pertinent finding (Erythema of foot slightly better) Lymphatic: no adenopathy (The) Laboratory Results RUN DATE: 01/07/17 [facility] LAB PAGE 1 RUN TIME: 720 Specimen Inquiry PATIENT: SUE MANCINI III LOC: [id number] U # : [id number] AGE/SX: 81/M ROOM: [facility] REG : 01/02/[address]: Shakeel Tanner M : 1935 BED: 1 DIS : STATUS: ADM IN TLOC: SPEC #: [id number] CHANTAL: 01/05/17-1131 STATUS: RES REQ #: [id number] RECD: 01/05/17-[address] [facility] [address]: Zachariah Rabago MD SOURCE: BLOOD ENTR: 01/05/17-[address]: Shakeel Tanner M.D. [facility]: Winston Harper M.D. Ridenour, Ryan, D.O. Roe, Kevin, D.O. ORDERED: BLOOD CULTURE Procedure Result Verified Site BLD CULT Preliminary 01/07/17 NO GROWTH TO DATE. the Last 24 Hours Test 01/07/17 11:19 01/07/17 12:42 01/07/17 16:00 01/07/17 20:14 Bedside Glucose 225 mg/dl 180 mg/dl 222 mg/dl Sodium Level 141 mmol/L Potassium Level 5.4 mmol/L Chloride Level 111 mmol/L Carbon Dioxide Level 24 mmol/L Anion Gap 6.0 mmol/L Blood Urea Nitrogen 76 mg/dl Creatinine 2.00 mg/dl Est Creatinine Clear Calc Drug Dose 39.7 ml/min Estimated GFR () 35.2 Estimated GFR (Non- 30.4 BUN/Creatinine Ratio 38.2 Random Glucose 258 mg/dl Calcium Level 8.3 mg/dl Test 01/08/17 06:18 01/08/17 06:24 Prothrombin Time 30.1 SECONDS Prothromb Time International Ratio 2.7 Creatinine 1.60 mg/dl Est Creatinine Clear Calc Drug Dose 49.4 ml/min Estimated GFR () 46.1 Estimated GFR (Non- 39.8 Bedside Glucose 130 mg/dl Assessment and Plan 81 yo male with MRSA sepsis likely from left foot and leg infection associated with DM with neuropathy and with CARLO. Vancomycin appropriate therapy for now, and given presence of osteomyelitis on x-ray, feel that patient likely will require 6 weeks of antibiotics. Will follow.
--- NOTE | 2017-01-08 12:38 | Nephrology Progress Note ---
Nephrology Progress Note Date of Service Jan 08, 2017. Chief Complaint Follow-up for acute kidney injury with history of chronic kidney disease. Subjective Mr. Avery was seen and examined in his room this morning. He is overall feeling well although he still has some wheezing but denies any shortness of breath or chest pain. Continues to have net negative urine output he made more than 2.5 liters and-1 0.5 liter on Lasix 20 milligram p.o. daily. Renal function continues to improve creatinine 1.6 this morning, other electrolyte acceptable. Had MRI of right toe foot last night showing osteomyelitis with MRSA Review of Systems A complete review of systems was performed. Pertinent positives are noted above. All other systems are negative. Vital Signs Last 8 Hrs Date Time Temp Pulse Resp B/P Pulse Ox O2 Delivery O2 Flow Rate FiO2 01/08/17 07:23 36.5 67 22 139/64 95 Nasal Cannula 3.0 01/08/17 07:12 61 20 96 Nasal Cannula 2.0 01/08/17 04:00 Nasal Cannula 2.0 CPAP 01/08/17 03:45 37.0 63 22 129/74 97 Nasal Cannula 3.0 I & O 24-Hour Column 01/08/17 08:00 Intake Total 1200 ml Output Total 2550 ml Balance -1350 ml Last Recorded Weight Weight (Kilograms): 135.200 Physical Exam GENERAL: Elderly male, AAA x 3, pleasant, healthy-appearing, not in any distress. NECK: Supple, no JVD. RESPIRATORY: Normal breathing efforts, no accessory muscle use, occasional wheezing CARDIOVASCULAR: S1, S2 normal, rate rhythm regular. EXTREMITY: trace B/L lower extremity edema NEURO: speech fluent. 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 Originally from [employer]. 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 Never a smoker Laboratory Results Past 24 Hours 01/07/17 12:42 01/08/17 06:18 Test 01/07/17 11:19 01/07/17 12:42 01/07/17 16:00 01/07/17 20:14 Bedside Glucose 225 mg/dl (70-99) 180 mg/dl (70-99) 222 mg/dl (70-99) Anion Gap 6.0 mmol/L (3-11) Est Creatinine Clear Calc Drug Dose 39.7 ml/min Estimated GFR () 35.2 Estimated GFR (Non- 30.4 BUN/Creatinine Ratio 38.2 (10-20) Calcium Level 8.3 mg/dl (8.5-10.1) Test 01/08/17 06:18 01/08/17 06:24 Prothrombin Time 30.1 SECONDS (9.0-12.0) Prothromb Time International Ratio 2.7 (0.9-1.1) Est Creatinine Clear Calc Drug Dose 49.4 ml/min Estimated GFR () 46.1 Estimated GFR (Non- 39.8 Bedside Glucose 130 mg/dl (70-99) Allergies Coded Allergies: Chlorpheniramine (Unverified Allergy, Unknown, ., 01/02/17) Phenylpropanolamine (Unverified Allergy, Unknown, ., 01/02/17) Medications Current Inpatient Medications Medications (Trade) Dose Ordered Sig/Sukhwinder Route Start Time Stop Time Status Last Admin Dose Admin Acetaminophen (Tylenol Tab) 650 mg Q4H PRN PO 01/02/17 09:30 02/01/17 09:29 Al Hydrox/Mg Hydrox/Simethicone (Maalox Max Susp) 15 ml Q4H PRN PO 01/02/17 09:30 02/01/17 09:29 Magnesium Hydroxide (Milk Of Magnesia Susp) 30 ml Q12H PRN PO 01/02/17 09:30 02/01/17 09:29 01/06/17 08:35 30 ML Ondansetron HCl (Zofran Inj) 4 mg Q6H PRN IV 01/02/17 09:30 02/01/17 09:29 Nitroglycerin (Nitrostat Tab) 0.4 mg UD PRN SL 01/02/17 09:30 02/01/17 09:29 Polyethylene (Miralax Powder Packet) 17 gm DAILY PRN PO 01/02/17 09:30 02/01/17 09:29 01/06/17 08:35 17 GM Albuterol/ Ipratropium (Duoneb) 3 ml QIDR INH 01/02/17 12:00 02/01/17 11:59 01/08/17 07:12 3 ML Levothyroxine Sodium (Synthroid Tab) 100 mcg DAILYBB PO 01/03/17 06:00 02/02/17 08:59 01/08/17 06:13 100 MCG Tamsulosin HCl (Flomax Cap) 0.4 mg DAILY PO 01/03/17 09:00 02/02/17 08:59 01/08/17 08:15 0.4 MG Nystatin (Mycostatin Powder) 1 appln BID EXT 01/02/17 21:00 02/01/17 20:59 01/08/17 08:17 1 APPLN Nystatin (Mycostatin Susp) 5 ml QID PO 01/02/17 13:00 01/12/17 12:59 01/08/17 08:15 5 ML Morphine Sulfate (MoRPHine SULFATE INJ) 2 mg Q4H PRN IV 01/02/17 09:30 01/16/17 09:29 01/05/17 08:01 2 MG Morphine Sulfate (MoRPHine SULFATE INJ) 4 mg Q4H PRN IV 01/02/17 09:30 01/16/17 09:29 01/06/17 20:56 4 MG Oxycodone HCl (Roxicodone Immediate Rel Tab) 10 mg Q6 PRN PO 01/02/17 09:30 01/16/17 09:29 01/07/17 21:53 10 MG Insulin Aspart (novoLOG ASPART) SLIDING SCALE PARAMETER ACHS SC 01/02/17 11:00 02/01/17 10:59 01/08/17 08:22 4 UNITS Insulin Glargine (Lantus Solostar Pen) 20 unit BID SC 01/02/17 21:00 02/01/17 20:59 01/08/17 08:22 20 UNIT Vancomycin HCl (Consult) 1 ea UD PRN N/A 01/02/17 10:00 02/01/17 09:59 Miconazole Nitrate (Desenex Powder) 1 appln DAILY EXT 01/03/17 09:00 02/02/17 08:59 01/08/17 08:16 1 APPLN Multi-Ingredient Ointment (Eucerin Unscented Cr) 1 appln DAILY EXT 01/03/17 09:00 02/02/17 08:59 01/08/17 08:17 1 APPLN Glucose (Glucose 40% Gel) 15-30 GRAMS 15 GRAMS... UD PRN PO 01/02/17 13:15 02/01/17 13:14 Glucose (Glucose Chew Tab) 4-8 Tablets 4 Tabl... UD PRN PO 01/02/17 13:15 02/01/17 13:14 Dextrose (Dextrose 50% 50ML Syringe) 25-50ML OF 50% DW IV FOR... UD PRN IV 01/02/17 13:15 02/01/17 13:14 Glucagon (Glucagon Inj) 1 mg UD PRN SQ 01/02/17 13:15 02/01/17 13:14 Guaifenesin (Mucinex Contr Rel Tab) 1,200 mg Q12 PO 01/04/17 21:00 02/03/17 20:59 01/08/17 08:15 1,200 MG Warfarin Sodium (Coumadin Tab) 4 mg DAILY@1600 PO 01/07/17 16:00 02/06/17 15:59 01/07/17 16:00 4 MG Furosemide 20 mg 20 mg QAM PO 01/07/17 09:38 02/06/17 09:37 01/08/17 08:15 20 MG Vancomycin HCl/ Sodium Chloride (Vancomycin Inj/ Nss 500ml) 530 ml @ 200 mls/hr DAILY@1200 IV 01/07/17 13:00 01/21/17 12:59 01/07/17 13:36 200 MLS/HR Impression (1) Acute kidney injury (2) Stage 3 chronic kidney disease (3) SIRS (systemic inflammatory response syndrome) (4) Hypotension (5) Cellulitis of left lower extremity (6) ASCVD (arteriosclerotic cardiovascular disease) (7) A-fib (8) Diabetes (9) Sleep apnea Mr. Avery was admitted to the hospital with LLE cellulitis, SIRS, relative hypotension and acute on chronic kidney injury. He has underlying diabetic nephropathy. His baseline creatinine has been 2.0. Blood cultures are currently pending. Urinalysis is positive for blood due to rucker catheter. Proteinuria is present c/w diabetic nephropathy. Patient has been started on empiric IV Vanco & Zosyn therapy PMH - AODM, BMI > 40, HTN, hyperlipidemia, ASCVD s/p CABG w/ AVR, chronic atrial fibrillation, EVENS, gout, kidney stones and recurrent UTI. Recommendations -- acute kidney injury resolved, creatinine 1.6 which is his baseline. -- will continue to monitor renal function with daily renal panel -- continue on Lasix 20 milligram p.o. daily --patient will need physical therapy to decide whether he will need rehab or can go home --also he will need to have decision regarding antibiotic, if he needs access for prolonged antibiotic therapy, although would like to avoid PICC line considering CKD and a midline would be preferable, however if midline is not possible and patient needs IV antibiotic for few weeks okay to place a PICC line in non dominant upper extremity.
[2017-01-08] MEDS: OXYCODONE HCL IR 5 MG TAB (IMMEDIATE RELEASE) PO PRN (13:22)
[2017-01-08] MEDS: VANCOMYCIN INJ 1,500 MG in SODIUM CHLORIDE 0.9% 500ML 500 ML IV SCH (13:23)
[2017-01-08] MEDS ORDERED: WARFARIN SOD 2.5 MG TAB PO SCH ×2 (16:00)
[2017-01-08] MEDS: WARFARIN SOD 4 MG TAB PO SCH (18:17)
--- NOTE | 2017-01-08 19:31 | CONSULTATION REPORT ---
DATE OF CONSULTATION: 01/08/2017 REASON FOR CONSULT: Osteomyelitis, third left toe. 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 Family is present and he apparently has been going to the senior group manager and having work on his toes as far as callus removal, etc., and also debridement of some ulcerations that were developing. He has continued to worsen over time and the patient was recently admitted at [facility] for SIRS with diabetic foot infection and acute on chronic renal failure and chronic respiratory failure with nocturnal hypoxia requiring CPAP. Once the patient was admitted and stabilized, his toes are examined and we have been asked to see him concerning his osteomyelitis of his 3rd toe per MRI as well as a beginning ulceration noted on the second toe and ulceration of the third toe of the left foot. PAST MEDICAL HISTORY: Atrial fibrillation/flutter chronically, history of CABG and aortic valve replacement, severe pulmonary hypertension, COPD, chronic anemia, heart failure, insulin requiring diabetes mellitus with neuropathy as noted above, chronically elevated LFTs and alkaline phosphatase, dyslipidemia, hypothyroidism, hypertension, chronic kidney disease, secondary hyperparathyroidism, and BPH. FAMILY HISTORY: Diabetes mellitus, hypertension, heart disease. SOCIAL HISTORY: The patient is a nonsmoker, was a smoker quite some time ago. He does not use alcohol. MEDICATIONS: Coreg 3.125 mg b.i.d., vitamin D 50,000 units monthly, DuoNeb p.r.n., iron 325 mg 2 times a week, Lasix 20 mg every other day, hydrocodone p.r.n. for pain, Synthroid 100 mcg a day, losartan 50 mg p.o. daily, metformin 500 mg p.o. b.i.d., insulin lispro 75/20 30 units b.i.d., Zocor 20 mg a day, Flomax 0.4 mg a day, albuterol as needed, Coumadin 5 mg 6 days a week and 2.5 mg on Sunday. ALLERGIES: CHLORPHENIRAMINE AND PHENYLPROPANOLAMINE. REVIEW OF SYSTEMS: As per admitting history and physical. PHYSICAL EXAMINATION: GENERAL: The patient is an obese white male who is alert and oriented x3 and in no acute distress, pleasant and cooperative. He is sitting in his chair, eating his dinner at the side of the bed. He appears comfortable and in good spirits. EXTREMITIES: Examination of his left foot, he has a dressing over his second and third toes. At that point in time, the dressings were removed from both toes. The second toe has a small beginnings of ulcer like wound just proximal to the nail and has no moderate drainage, but appears to be somewhat purulent underneath the bed of tissue that is starting to ulceration. He has moderate erythema of the second toe and he has neuropathy and has essentially minimal sensation at this time. The 3rd toe looks much worse and he has an ulcer that is just proximal to the nail and the toe itself was much darker in color. There is an ulceration that has a black eschar on the top of it and has some mild serous drainage noted. No overt foul odor at this time. The nail bed is incorporated in this infection and he has noted erythema that travels proximally. The erythema stops at the dorsum of the foot and he has moderate swelling of the foot at this time and some noted venous stasis disease of his lower extremity. His right foot has less swelling and the lower extremity does show chronic venous stasis disease but no areas of open wounds and no erythema. Pulses are diminished of the dorsalis pedis at 1/4 bilaterally. ASSESSMENT: Ulceration, dorsum of left 3rd toe with osteomyelitis of the distal phalanx per MRI, early stage of wound ulceration of the second toe of the left foot with moderate erythema. PLAN: I will discuss the case with Dr. Cagle who is here today and will likely involve Dr. Samuel's assistance with this. There is a good chance this gentleman would need a distal 3rd toe amputation and some irrigation and debridement of the second toe as well. Currently, his vital signs are stable and he did show MRSA in his blood cultures. His current INR is 2.7. If surgical intervention of these toes is going to be likely, this will have to be dropped down to the 1.6 range at least for amputation. I can discuss the case further with medicine service to start making plans for likely amputation and I&D of the toes. RAKESH
[2017-01-09] VITALS (10 sets, daily range): BP systolic 135–180; BP diastolic 57–70; PULSE 64–86; TEMP 36.6–37.2; O2SAT 89–96
[2017-01-09] MEDS ORDERED: ALBUT/IPRATROP 3MG/0.5MG NEB 3 ML VIAL INH PRN (04:30)
[2017-01-09] MEDS: ALBUT/IPRATROP 3MG/0.5MG NEB 3 ML VIAL INH SCH ×5 (04:36→20:07)
[2017-01-09] MEDS: LEVOTHYROXINE 100 MCG TAB PO SCH (05:33)
[2017-01-09] MEDS: OXYCODONE HCL IR 5 MG TAB (IMMEDIATE RELEASE) PO PRN ×2 (05:33→18:10)
[2017-01-09 07:05] LABS: HEMATOCRIT 31.7 % (42-52); MEAN CELL VOLUME 93.8 fL (80-100); MEAN CORPUSCULAR HEMOGLOBIN 29.6 pg (25-34); MEAN CORPUSCULAR HGB CONC 31.5 g/dl (32-36); MEAN PLATELET VOLUME 8.8 fL (7.4-10.4); PLATELET COUNT 530 K/uL (130-400); RED BLOOD COUNT 3.38 M/uL (4.7-6.1); WHITE BLOOD COUNT 14.27 K/uL (4.8-10.8)
[2017-01-09 07:09] LABS: PROTHROMBIN TIME (PATIENT) 46.7 SECONDS (9.0-12.0)
[2017-01-09 07:13] LABS: INR 4.1 (0.9-1.1)
[2017-01-09 07:30] LABS: CREATININE 1.6 mg/dl (0.60-1.40)
[2017-01-09] MEDS: MICONAZOLE NITRATE POWDER 43 GM EXT SCH (09:02)
[2017-01-09] MEDS: NYSTATIN POWDER 15GM BTL EXT SCH ×2 (09:02→20:17)
[2017-01-09] MEDS: EUCERIN CR 120 GM JAR EXT SCH (09:02)
[2017-01-09] MEDS: NYSTATIN SUSP 500,000 U/5 ML UDC PO SCH ×4 (09:02→20:17)
[2017-01-09] MEDS: FUROSEMIDE 20 MG TAB PO SCH (09:03)
[2017-01-09] MEDS: GUAIFENESIN 600 MG TABCR PO SCH ×2 (09:03→20:19)
[2017-01-09] MEDS: INSULIN ASPART 100 UNITS/ML 3 ML PEN SC SCH ×4 (09:32→20:23)
[2017-01-09] MEDS: INSULIN GLARGINE SOLOSTAR 100 UNITS/ML 3 ML PEN SC SCH ×2 (09:32→20:22)
[2017-01-09] MEDS: TAMSULOSIN HCL 0.4 MG CAP PO SCH (09:36)
--- NOTE | 2017-01-09 11:24 | Progress Note ---
Subjective Date of Service: Jan 09, 2017. Problem List Medical Problems: (1) Cellulitis of left lower extremity Status: Acute (2) Sepsis Status: Acute Review of Systems Respiratory: + wheezing Cardiac: + edema Abdomen: No GI bleeding, No constipation, No diarrhea, No nausea, No pain, No problem reported, No see HPI, No vomiting Neurologic: No balance problems, No memory loss, No numbness/tingling, No paralysis, No problem reported, No see HPI, No vertigo, No weakness Objective Vital Signs Date Time Temp Pulse Resp B/P Pulse Ox O2 Delivery O2 Flow Rate FiO2 01/09/17 08:00 Nasal Cannula 2.0 01/09/17 07:47 37.2 75 20 150/70 91 2.0 01/09/17 07:13 86 30 90 Nasal Cannula 2.0 01/09/17 04:32 84 30 91 Nasal Cannula 2.0 01/09/17 04:00 Nasal Cannula 3.0 CPAP 01/09/17 03:57 36.6 84 24 180/69 91 Nasal Cannula 2.0 01/09/17 00:00 Nasal Cannula 3.0 CPAP 01/08/17 23:49 36.5 65 24 144/58 94 Nasal Cannula 2.0 01/08/17 20:00 Nasal Cannula 2.0 01/08/17 19:29 59 16 98 Nasal Cannula 2.0 01/08/17 16:00 Nasal Cannula 2.0 CPAP 01/08/17 15:45 37.1 66 24 126/65 99 Nasal Cannula 3.0 01/08/17 14:47 68 16 96 Nasal Cannula 2.0 01/08/17 12:00 Nasal Cannula 2.0 CPAP 01/08/17 11:31 68 20 96 Nasal Cannula 2.0 01/08/17 11:31 36.4 75 20 158/81 93 Nasal Cannula 3.0 Physical Exam General Appearance: WD/WN Neck: supple, thyroid normal Respiratory/Chest: chest non-tender, + wheezing Cardiovascular: + irregularly irregular Abdomen: normal bowel sounds, non tender, soft Neurologic/Psychiatric: alert, oriented x 3 Laboratory Results Last 24 Hours Test 01/08/17 11:15 01/08/17 16:24 01/08/17 20:15 01/09/17 06:16 Bedside Glucose 182 mg/dl 257 mg/dl 242 mg/dl White Blood Count 14.27 K/uL Red Blood Count 3.38 M/uL Hemoglobin 10.0 g/dL Hematocrit 31.7 % Mean Corpuscular Volume 93.8 fL Mean Corpuscular Hemoglobin 29.6 pg Mean Corpuscular Hemoglobin Concent 31.5 g/dl RDW Standard Deviation 52.9 fL RDW Coefficient of Variation 15.6 % Platelet Count 530 K/uL Mean Platelet Volume 8.8 fL Prothrombin Time 46.7 SECONDS Prothromb Time International Ratio 4.1 Creatinine 1.60 mg/dl Est Creatinine Clear Calc Drug Dose 49.4 ml/min Estimated GFR () 46.1 Estimated GFR (Non- 39.8 Test 01/09/17 06:32 Bedside Glucose 145 mg/dl Assessment and Plan 81-year-old male here with SEPSIS from diabetic foot infection, atn AND acute on chronic renal failure and chronic respiratory failure with nocturnal hypoxia requiring CPAP at 11 cm. Sepsis from MRSA, vancomycin with pharmacy dosing now improving renal failure; since aortic valve TTE performed and negative, and ID consult to recommend duration of antibiotics and likely choice( decision for PICC and outpt treatment will be after all 4 blood cultures are negative). MRI left foot done y.day shows osteomyelitis and hence will consult Ortho. Pt will need midline or PICC line for IV abx. Most recent blood cultures are negative. Fungal infection, oral and panniculitis candidal-resolving Nystatin swish and swallow and topical Nystatin powder. Diabetic foot abrasions and likely portals of infection. wound care consultation providing topical care antihypertensive medications of Coreg, losartan to be held, renal function improved will look for nephrology to recommend restarting lasix 01/07. Acute renal failure, ATN, improving and renal function now back to baseline. chronic respiratory failure, DuoNebs, did have volume overload, acute respiratory failure, resolved with stopping fluid and using one dose of lasix q.i.d. respiratory with CPAP at night with oxygen Regarding his anticoagulation supra therapeutic held warfarin, one low dose vitamin K, now below 2 resume coumadin and follow checking daily PT/INRs. No coumadin today since INR is greater than 4.0 diabetes holding lispro 75/25 and converted to Lantus 20 b.i.d. with insulin sliding scale and pharmacy adjustment. DVT prevention warfarin. HE IS A FULL CODE.
[2017-01-09] MEDS ORDERED: VANCOMYCIN TROUGH SCH (11:30)
--- NOTE | 2017-01-09 12:39 | Nephrology Progress Note ---
Nephrology Progress Note Date of Service Jan 09, 2017. Chief Complaint Follow-up for acute kidney injury with history of chronic kidney disease. Subjective Mr. Avery was seen and examined in his room this morning. He denies of shortness of breath or chest pain while sitting up but mention last night a.m. he had some difficulty with breathing. renal function remained stable, creatinine 1.6. Continues to have decent urine output over last 24 hour he made 2 liters of urine and net negative more than 1 liter. Blood pressure stable. Review of Systems A complete review of systems was performed. Pertinent positives are noted above. All other systems are negative. Vital Signs Last 8 Hrs Date Time Temp Pulse Resp B/P Pulse Ox O2 Delivery O2 Flow Rate FiO2 01/09/17 12:07 81 30 89 Nasal Cannula 2.0 01/09/17 12:00 Nasal Cannula 2.0 01/09/17 11:33 37.1 70 20 138/67 95 2.0 01/09/17 08:00 Nasal Cannula 2.0 01/09/17 07:47 37.2 75 20 150/70 91 2.0 01/09/17 07:13 86 30 90 Nasal Cannula 2.0 I & O 24-Hour Column 01/09/17 08:00 Intake Total 455 ml Output Total 1900 ml Balance -1445 ml Last Recorded Weight Weight (Kilograms): 135.200 Physical Exam GENERAL: Elderly male, AAA x 3, pleasant, healthy-appearing, not in any distress. NECK: Supple, no JVD. RESPIRATORY: Normal breathing efforts, no accessory muscle use, occasional wheezing and decreased breath sound. CARDIOVASCULAR: S1, S2 normal, rate rhythm regular. EXTREMITY: trace B/L lower extremity edema NEURO: speech fluent. 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 Originally from [employer] [place]. 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 Never a smoker Laboratory Results Past 24 Hours 01/09/17 06:16 01/09/17 06:16 Test 01/08/17 16:24 01/08/17 20:15 01/09/17 06:16 01/09/17 06:32 Bedside Glucose 257 mg/dl (70-99) 242 mg/dl (70-99) 145 mg/dl (70-99) Red Blood Count 3.38 M/uL (4.7-6.1) Mean Corpuscular Volume 93.8 fL (80-100) Mean Corpuscular Hemoglobin 29.6 pg (25-34) Mean Corpuscular Hemoglobin Concent 31.5 g/dl (32-36) RDW Standard Deviation 52.9 fL (36.4-46.3) RDW Coefficient of Variation 15.6 % (11.5-14.5) Mean Platelet Volume 8.8 fL (7.4-10.4) Prothrombin Time 46.7 SECONDS (9.0-12.0) Prothromb Time International Ratio 4.1 (0.9-1.1) Est Creatinine Clear Calc Drug Dose 49.4 ml/min Estimated GFR () 46.1 Estimated GFR (Non- 39.8 Test 01/09/17 11:12 01/09/17 12:09 Bedside Glucose 238 mg/dl (70-99) Allergies Coded Allergies: Chlorpheniramine (Unverified Allergy, Unknown, ., 01/02/17) Phenylpropanolamine (Unverified Allergy, Unknown, ., 01/02/17) Medications Current Inpatient Medications Medications (Trade) Dose Ordered Sig/Sukhwinder Route Start Time Stop Time Status Last Admin Dose Admin Acetaminophen (Tylenol Tab) 650 mg Q4H PRN PO 01/02/17 09:30 02/01/17 09:29 Al Hydrox/Mg Hydrox/Simethicone (Maalox Max Susp) 15 ml Q4H PRN PO 01/02/17 09:30 02/01/17 09:29 Magnesium Hydroxide (Milk Of Magnesia Susp) 30 ml Q12H PRN PO 01/02/17 09:30 02/01/17 09:29 01/06/17 08:35 30 ML Ondansetron HCl (Zofran Inj) 4 mg Q6H PRN IV 01/02/17 09:30 02/01/17 09:29 Nitroglycerin (Nitrostat Tab) 0.4 mg UD PRN SL 01/02/17 09:30 02/01/17 09:29 Polyethylene (Miralax Powder Packet) 17 gm DAILY PRN PO 01/02/17 09:30 02/01/17 09:29 01/06/17 08:35 17 GM Albuterol/ Ipratropium (Duoneb) 3 ml QIDR INH 01/02/17 12:00 02/01/17 11:59 01/09/17 12:07 3 ML Levothyroxine Sodium (Synthroid Tab) 100 mcg DAILYBB PO 01/03/17 06:00 02/02/17 08:59 01/09/17 05:33 100 MCG Tamsulosin HCl (Flomax Cap) 0.4 mg DAILY PO 01/03/17 09:00 02/02/17 08:59 01/09/17 09:36 0.4 MG Nystatin (Mycostatin Powder) 1 appln BID EXT 01/02/17 21:00 02/01/17 20:59 01/09/17 09:02 1 APPLN Nystatin (Mycostatin Susp) 5 ml QID PO 01/02/17 13:00 01/12/17 12:59 01/09/17 11:58 5 ML Morphine Sulfate (MoRPHine SULFATE INJ) 2 mg Q4H PRN IV 01/02/17 09:30 01/16/17 09:29 01/05/17 08:01 2 MG Morphine Sulfate (MoRPHine SULFATE INJ) 4 mg Q4H PRN IV 01/02/17 09:30 01/16/17 09:29 01/06/17 20:56 4 MG Oxycodone HCl (Roxicodone Immediate Rel Tab) 10 mg Q6 PRN PO 01/02/17 09:30 01/16/17 09:29 01/09/17 05:33 10 MG Insulin Aspart (novoLOG ASPART) SLIDING SCALE PARAMETER ACHS SC 01/02/17 11:00 02/01/17 10:59 01/09/17 11:57 12 UNITS Insulin Glargine (Lantus Solostar Pen) 20 unit BID SC 01/02/17 21:00 02/01/17 20:59 01/09/17 09:32 20 UNIT Vancomycin HCl (Consult) 1 ea UD PRN N/A 01/02/17 10:00 02/01/17 09:59 Miconazole Nitrate (Desenex Powder) 1 appln DAILY EXT 01/03/17 09:00 02/02/17 08:59 01/09/17 09:02 1 APPLN Multi-Ingredient Ointment (Eucerin Unscented Cr) 1 appln DAILY EXT 01/03/17 09:00 02/02/17 08:59 01/09/17 09:02 1 APPLN Glucose (Glucose 40% Gel) 15-30 GRAMS 15 GRAMS... UD PRN PO 01/02/17 13:15 02/01/17 13:14 Glucose (Glucose Chew Tab) 4-8 Tablets 4 Tabl... UD PRN PO 01/02/17 13:15 02/01/17 13:14 Dextrose (Dextrose 50% 50ML Syringe) 25-50ML OF 50% DW IV FOR... UD PRN IV 01/02/17 13:15 02/01/17 13:14 Glucagon (Glucagon Inj) 1 mg UD PRN SQ 01/02/17 13:15 02/01/17 13:14 Guaifenesin (Mucinex Contr Rel Tab) 1,200 mg Q12 PO 01/04/17 21:00 02/03/17 20:59 01/09/17 09:03 1,200 MG Furosemide 20 mg 20 mg QAM PO 01/07/17 09:38 02/06/17 09:37 01/09/17 09:03 20 MG Vancomycin HCl/ Sodium Chloride (Vancomycin Inj/ Nss 500ml) 530 ml @ 200 mls/hr DAILY@1200 IV 01/07/17 13:00 01/21/17 12:59 01/08/17 13:23 200 MLS/HR Albuterol/ Ipratropium (Duoneb) 3 ml Q4H PRN INH 01/09/17 04:30 02/08/17 04:29 Impression (1) Acute kidney injury (2) Stage 3 chronic kidney disease (3) SIRS (systemic inflammatory response syndrome) (4) Hypotension (5) Cellulitis of left lower extremity (6) ASCVD (arteriosclerotic cardiovascular disease) (7) A-fib (8) Diabetes (9) Sleep apnea Mr. Avery was admitted to the hospital with LLE cellulitis, SIRS, relative hypotension and acute on chronic kidney injury. He has underlying diabetic nephropathy. His baseline creatinine has been 2.0. Blood cultures are currently pending. Urinalysis is positive for blood due to rucker catheter. Proteinuria is present c/w diabetic nephropathy. Patient has been started on empiric IV Vanco & Zosyn therapy PMH - AODM, BMI > 40, HTN, hyperlipidemia, ASCVD s/p CABG w/ AVR, chronic atrial fibrillation, [place], gout, kidney stones and recurrent UTI. Recommendations -- acute kidney injury resolved, creatinine 1.6 which is his baseline. -- will continue to monitor renal function with daily renal panel -- changed to Lasix 20 milligram p.o. twice a day --continue physical therapy to decide whether he will need rehab or can go home --also he will need to have decision regarding antibiotic, if he needs access for prolonged antibiotic therapy, although would like to avoid PICC line considering CKD and a midline would be preferable, however if midline is not possible and patient needs IV antibiotic for few weeks okay to place a PICC line in non dominant upper extremity.
[2017-01-09] MEDS ORDERED: FUROSEMIDE INJ 40 MG in SYRINGE 0 ML IV ONE (12:45)
--- NOTE | 2017-01-09 13:30 | Pharmacy Progress Note ---
Pharmacy Antibiotic Prog Note Date of Service Jan 09, 2017. Subjective The patient is currently receiving vancomycin 1500 mg IV every 24 hours. The patient is currently on day # 8 of 6 weeks of IV therapy. Objective Height (Feet): 5 Height (Inches): 9.00 Weight (Kilograms): 135.200 Levels: Item Value Date Time Vancomycin Level Trough 17.8 mcg/ml 01/09/17 1209 Random Vancomycin Level 25.5 mcg/ml 01/07/17 0530 Random Vancomycin Level 25.3 mcg/ml 01/06/17 0505 Random Vancomycin Level 22.8 mcg/ml 01/05/17 0548 Random Vancomycin Level 22.8 mcg/ml 01/04/17 0625 Lab Results (24hrs): Laboratory Tests Test 01/09/17 06:16 Creatinine 1.60 mg/dl White Blood Count 14.27 K/uL Micro Results: RUN DATE: 01/08/17 [facility] PAGE 1 RUN TIME: 717 Specimen Inquiry PATIENT: SUE MANCINI LUCA VICK LOC: [facility] U # : [id number] AGE/SX: 81/M ROOM: 36 REG : 01/02/[address]: Shakeel Tanner M : 1935 BED: 1 DIS : STATUS: ADM IN TLOC: SPEC #: [id number] CHANTAL: 01/02/17 STATUS: COMP REQ #: [id number] RECD: 01/02/17 [facility] [address]: Houston Luis M.D. SOURCE: BLOOD ENTR: 01/02/[address] [facility] [address]: Winston Harper M.D. [facility]: ORDERED: BLOOD CULTURE COMMENTS: Comments to Medical Writer SAME TIME DIFFERENT SITES Procedure Result Verified Site BLD CULT Final 01/08/17-717 Organism 1 STAPHYLOCOCCUS AUREUS SENS SENSITIVITY TO FOLLOW SENSITIVITY RESULT INDICATES A METHICILLIN RESISTANT STAPH. AUREUS. PHONED TO RICHARD ALEXANDRA ON 01/04/17 AT 0815 BY Blanca Puentes. Results were verbalized back to GINA. RESULTS WERE ALSO CALLED TO [facility] INFECTION CONTROL ANSWERING MACHINE ON 01/04/17 BY GINA. Phoned Positive Blood Culture Gram Stain Report to CHRISTIANO EL on 01/02/17 At 1900 By SHARMAINE. Results were verbalized back to SHARMAINE. 1. STAPHYLOCOCCUS AUREUS Target Route Dose RX AB Cost M.I.C. IQ ------ ----- ------ -- ------ -------- - ------ TRIMET/SULFA S <=0.5/ 9.5 * OXACILLIN R * >2 VANCOMYCIN S 1 ERYTHROMYCIN R >4 TETRACYCLINE S <=4 CLINDAMYCIN R <=0.5 DAPTOMYCIN S <=0.5 RIFAMPIN S <=1 S = SENSITIVE I = INTERMEDIATE R = RESISTANT Assessment & Plan This drug level is: Therapeutic Continue vancomycin 1500 mg IV every 24 hours. Goal peak level estimate: between 35 - 40 mcg/mL. Goal trough level estimate: between 15 - 20 mcg/mL (diagnosis osteomyelitis). Trough has been ordered for: 2016. to ensure no accumulation. Pharmacy will continue to follow and will adjust dose/frequency as necessary. Thank you
[2017-01-09] MEDS: VANCOMYCIN INJ 1,500 MG in SODIUM CHLORIDE 0.9% 500ML 500 ML IV SCH (13:49)
--- NOTE | 2017-01-09 14:28 | Infectious Disease Progress Nt ---
Progress Note Date of Service Jan 09, 2017. Subjective Pt evaluation today including: conversation w/ patient, physical exam, chart review, lab review, review of studies, conversation w/ audit consultant, review of inpatient medication list Orthopedic consultation noted. Await recommendations from Dr. Samuel. Patient feeling better, offers no new complaints. Remains afebrile. Appears to be tolerating antibiotics without apparent difficulty. Follow-up blood cultures remain negative. All Other Systems: Reviewed and Negative Medications Current Inpatient Medications Medications (Trade) Dose Ordered Sig/Sukhwinder Route Start Time Stop Time Status Last Admin Dose Admin Acetaminophen (Tylenol Tab) 650 mg Q4H PRN PO 01/02/17 09:30 02/01/17 09:29 Al Hydrox/Mg Hydrox/Simethicone (Maalox Max Susp) 15 ml Q4H PRN PO 01/02/17 09:30 02/01/17 09:29 Magnesium Hydroxide (Milk Of Magnesia Susp) 30 ml Q12H PRN PO 01/02/17 09:30 02/01/17 09:29 01/06/17 08:35 30 ML Ondansetron HCl (Zofran Inj) 4 mg Q6H PRN IV 01/02/17 09:30 02/01/17 09:29 Nitroglycerin (Nitrostat Tab) 0.4 mg UD PRN SL 01/02/17 09:30 02/01/17 09:29 Polyethylene (Miralax Powder Packet) 17 gm DAILY PRN PO 01/02/17 09:30 02/01/17 09:29 01/06/17 08:35 17 GM Albuterol/ Ipratropium (Duoneb) 3 ml QIDR INH 01/02/17 12:00 02/01/17 11:59 01/09/17 12:07 3 ML Levothyroxine Sodium (Synthroid Tab) 100 mcg DAILYBB PO 01/03/17 06:00 02/02/17 08:59 01/09/17 05:33 100 MCG Tamsulosin HCl (Flomax Cap) 0.4 mg DAILY PO 01/03/17 09:00 02/02/17 08:59 01/09/17 09:36 0.4 MG Nystatin (Mycostatin Powder) 1 appln BID EXT 01/02/17 21:00 02/01/17 20:59 01/09/17 09:02 1 APPLN Nystatin (Mycostatin Susp) 5 ml QID PO 01/02/17 13:00 01/12/17 12:59 01/09/17 11:58 5 ML Morphine Sulfate (MoRPHine SULFATE INJ) 2 mg Q4H PRN IV 01/02/17 09:30 01/16/17 09:29 01/05/17 08:01 2 MG Morphine Sulfate (MoRPHine SULFATE INJ) 4 mg Q4H PRN IV 01/02/17 09:30 01/16/17 09:29 01/06/17 20:56 4 MG Oxycodone HCl (Roxicodone Immediate Rel Tab) 10 mg Q6 PRN PO 01/02/17 09:30 01/16/17 09:29 01/09/17 05:33 10 MG Insulin Aspart (novoLOG ASPART) SLIDING SCALE PARAMETER ACHS SC 01/02/17 11:00 02/01/17 10:59 01/09/17 11:57 12 UNITS Insulin Glargine (Lantus Solostar Pen) 20 unit BID SC 01/02/17 21:00 02/01/17 20:59 01/09/17 09:32 20 UNIT Vancomycin HCl (Consult) 1 ea UD PRN N/A 01/02/17 10:00 02/01/17 09:59 Miconazole Nitrate (Desenex Powder) 1 appln DAILY EXT 01/03/17 09:00 02/02/17 08:59 01/09/17 09:02 1 APPLN Multi-Ingredient Ointment (Eucerin Unscented Cr) 1 appln DAILY EXT 01/03/17 09:00 02/02/17 08:59 01/09/17 09:02 1 APPLN Glucose (Glucose 40% Gel) 15-30 GRAMS 15 GRAMS... UD PRN PO 01/02/17 13:15 02/01/17 13:14 Glucose (Glucose Chew Tab) 4-8 Tablets 4 Tabl... UD PRN PO 01/02/17 13:15 02/01/17 13:14 Dextrose (Dextrose 50% 50ML Syringe) 25-50ML OF 50% DW IV FOR... UD PRN IV 01/02/17 13:15 02/01/17 13:14 Glucagon (Glucagon Inj) 1 mg UD PRN SQ 01/02/17 13:15 02/01/17 13:14 Guaifenesin 1200 mg 1,200 mg Q12 PO 01/04/17 21:00 02/03/17 20:59 01/09/17 09:03 1,200 MG Vancomycin HCl/ Sodium Chloride (Vancomycin Inj/ Nss 500ml) 530 ml @ 200 mls/hr DAILY@1200 IV 01/07/17 13:00 01/21/17 12:59 01/09/17 13:49 200 MLS/HR Albuterol/ Ipratropium (Duoneb) 3 ml Q4H PRN INH 01/09/17 04:30 02/08/17 04:29 Furosemide (Lasix Tab) 20 mg BID17 PO 01/10/17 09:00 02/09/17 08:59 Objective Vital Signs Date Time Temp Pulse Resp B/P Pulse Ox O2 Delivery O2 Flow Rate FiO2 01/09/17 12:07 81 30 89 Nasal Cannula 2.0 01/09/17 12:00 Nasal Cannula 2.0 01/09/17 11:33 37.1 70 20 138/67 95 2.0 01/09/17 08:00 Nasal Cannula 2.0 01/09/17 07:47 37.2 75 20 150/70 91 2.0 01/09/17 07:13 86 30 90 Nasal Cannula 2.0 01/09/17 04:32 84 30 91 Nasal Cannula 2.0 01/09/17 04:00 Nasal Cannula 3.0 CPAP 01/09/17 03:57 36.6 84 24 180/69 91 Nasal Cannula 2.0 01/09/17 00:00 Nasal Cannula 3.0 CPAP 01/08/17 23:49 36.5 65 24 144/58 94 Nasal Cannula 2.0 01/08/17 20:00 Nasal Cannula 2.0 01/08/17 19:29 59 16 98 Nasal Cannula 2.0 01/08/17 16:00 Nasal Cannula 2.0 CPAP 01/08/17 15:45 37.1 66 24 126/65 99 Nasal Cannula 3.0 01/08/17 14:47 68 16 96 Nasal Cannula 2.0 Physical Exam General Appearance: WD/WN, no apparent distress Eyes: normal inspection, sclerae normal ENT: normal ENT inspection, pharynx normal Neck: supple, no adenopathy, trachea midline Respiratory/Chest: chest non-tender, lungs clear, normal breath sounds, no respiratory distress Cardiovascular: regular rate, rhythm, no gallop, no murmur Abdomen: normal bowel sounds, non tender, soft, no organomegaly Extremities: non-tender, no calf tenderness Neurologic/Psychiatric: alert, oriented x 3 Skin: normal color, warm/dry, no rash Lymphatic: no adenopathy Laboratory Results Last 24 Hours Test 01/08/17 16:24 01/08/17 20:15 01/09/17 06:16 01/09/17 06:32 Bedside Glucose 257 mg/dl 242 mg/dl 145 mg/dl White Blood Count 14.27 K/uL Red Blood Count 3.38 M/uL Hemoglobin 10.0 g/dL Hematocrit 31.7 % Mean Corpuscular Volume 93.8 fL Mean Corpuscular Hemoglobin 29.6 pg Mean Corpuscular Hemoglobin Concent 31.5 g/dl RDW Standard Deviation 52.9 fL RDW Coefficient of Variation 15.6 % Platelet Count 530 K/uL Mean Platelet Volume 8.8 fL Prothrombin Time 46.7 SECONDS Prothromb Time International Ratio 4.1 Creatinine 1.60 mg/dl Est Creatinine Clear Calc Drug Dose 49.4 ml/min Estimated GFR () 46.1 Estimated GFR (Non- 39.8 Test 01/09/17 11:12 01/09/17 12:09 Bedside Glucose 238 mg/dl Vancomycin Level Trough 17.8 mcg/ml Assessment and Plan 81 yo male with MRSA sepsis likely from left foot and leg infection associated with DM with neuropathy and with CARLO. Vancomycin appropriate therapy for now, and given presence of osteomyelitis on x-ray, feel that patient likely will require 6 weeks of antibiotics. Will follow.
--- NOTE | 2017-01-09 14:55 | DIAGNOSTIC IMAGING REPORT ---
CHEST ONE VIEW PORTABLE HISTORY: Short of breath. COMPARISON: Chest 01/06/2017. FINDINGS: The heart remains enlarged. Mild pulmonary edema and trace bilateral pleural effusions have slightly improved. No pneumothorax. Postsurgical changes within the anterior chest wall are again noted. IMPRESSION: Cardiomegaly with improvement in the mild pulmonary edema and trace bilateral pleural effusions. Electronically signed by: Rigoberto Barry M.D. 01/09/2017 2:52 PM Dictated Date/Time: 01/09/2017 2:51 PM
--- NOTE | 2017-01-09 19:30 | ORTHOPEDIC CONSULTATION ---
DATE OF CONSULTATION: 01/09/2017 This is an 81-year-old gentleman seen at the request of Dr. Tanner and Dr. Harper for right third and possibly second toe osteomyelitis. The patient has had an ongoing history of insulin-requiring diabetes mellitus with bilateral foot neuropathy. He had been under the care of Eliezer Riddle DPM, for approximately 6 months, attempt to treat his second and third toes conservatively. He has been having callus removals and other debridements. He overall has been worsening over time. He has had some improvement intermittently, however, recently admitted to [facility] for SIRS with diabetic foot infection as the likely source of infection. He had acute on chronic renal failure and chronic respiratory failure with nocturnal hypoxia, requiring CPAP. The patient had an MRI of his left foot which demonstrated definite osteomyelitis of the third toe, questionable osteomyelitis of the distal second toe. The patient had a more recent abrasion of his left second and third toes and some industrial carpeting that he had at home. PAST MEDICAL HISTORY: Diabetes mellitus, diabetic neuropathy, AFib and atrial flutter chronically, history of CABG, aortic valve replacement, severe pulmonary hypertension, COPD, chronic anemia, heart failure, chronically elevated LFTs, alkaline phosphatase, anemia, dyslipidemia, hypothyroidism, hypertension, chronic kidney disease, secondary hyperparathyroidism, and BPH. ALLERGIES: CHLORPHENIRAMINE AND PHENYLPROPANOLAMINE. MEDICATIONS: Please see the medication list provided. SOCIAL HISTORY: He is a nonsmoker. He did smoke socially, primarily cigars on occasion. Denies alcohol or drug use. He is retired. PHYSICAL EXAMINATION: GENERAL: He is an 81-year-old obese gentleman who has dyspnea on exertion. He is alert and oriented x3. Speech clear and fluent. Affect is appropriate. He is sitting at bedside in his hospital bed. EXTREMITIES: Examination of his bilateral feet demonstrates chronic venous stasis changes bilateral lower extremities. He has left greater than right chronic lower extremity edema, rated at 3/4, right side 2+/4. There are no palpable pedal pulses; however, the feet are warm. He has no hair growth bilateral lower extremities. Chronic neuropathy was noted, sensation proximal to the ankles. Limited, if any, protective sensation bilateral feet. Dressing is removed of his left second and third toes, noted to have scant discharge and drainage over the third toe over the proximal nail bed. Chronic appearing fusiform edema of the third toe extending to the middle phalanx is noted. Second toe has some minor edema at the distal phalanx. Ulcerations and abrasions noted dorsal aspect of distal phalanges of the second and third toes. No obvious foul discharge or odor. He has erythema of the third toe extending to the middle to proximal phalanx. Second toe erythema at the distal aspect of the second toe only. MRI reviewed demonstrating obvious osteomyelitis involving the entirety of the distal phalanx of the third toe. Questionable marrow changes dorsal distal aspect of the second toe distal phalanx. Radiographs reviewed. Laboratories reviewed. IMPRESSION: 1. Left third toe distal phalanx osteomyelitis. 2. Possible osteomyelitis distal phalanx second toe, ulcerations dorsal distal left second and third toes with involvement of the nail beds. 3. Cellulitis of the left foot, improving on IV antibiotics. RECOMMENDATION: The patient will be scheduled for amputation of the left third toe distal phalanx, possible partial amputation involving the middle phalanx of the left third toe. Irrigation and debridement of the left second and third toes and possible partial amputation of the distal phalanx of the left second toe. Discussed this with the patient and we will plan for operative intervention on Sunday. Thank you for the opportunity to consult in the care of this patient.
[2017-01-10] VITALS (14 sets, daily range): BP systolic 144–169; BP diastolic 63–92; PULSE 61–101; TEMP 36.5–37.1; O2SAT 86–96
[2017-01-10] MEDS: LEVOTHYROXINE 100 MCG TAB PO SCH (05:56)
[2017-01-10 06:50] LABS: PROTHROMBIN TIME (PATIENT) 52.4 SECONDS (9.0-12.0)
[2017-01-10 06:54] LABS: INR 4.6 (0.9-1.1)
[2017-01-10 07:05] LABS: CALCIUM 8.7 mg/dl (8.5-10.1); CREATININE 1.3 mg/dl (0.60-1.40); POTASSIUM 5.6 mmol/L (3.5-5.1)
[2017-01-10] MEDS ORDERED: SODIUM POLYST. SULF SUSP 15G/60ML PO STA (07:38)
[2017-01-10] MEDS: NYSTATIN SUSP 500,000 U/5 ML UDC PO SCH ×4 (07:43→20:26)
[2017-01-10] MEDS: GUAIFENESIN 600 MG TABCR PO SCH ×2 (07:44→20:28)
[2017-01-10] MEDS: FUROSEMIDE 20 MG TAB PO SCH ×2 (07:44→17:01)
[2017-01-10] MEDS: TAMSULOSIN HCL 0.4 MG CAP PO SCH (07:45)
[2017-01-10] MEDS: INSULIN ASPART 100 UNITS/ML 3 ML PEN SC SCH ×4 (07:46→20:32)
[2017-01-10] MEDS: MICONAZOLE NITRATE POWDER 43 GM EXT SCH (07:47)
[2017-01-10] MEDS: INSULIN GLARGINE SOLOSTAR 100 UNITS/ML 3 ML PEN SC SCH ×2 (07:47→20:32)
[2017-01-10] MEDS: EUCERIN CR 120 GM JAR EXT SCH (07:48)
[2017-01-10] MEDS: NYSTATIN POWDER 15GM BTL EXT SCH ×2 (07:49→20:28)
[2017-01-10] MEDS: ALBUT/IPRATROP 3MG/0.5MG NEB 3 ML VIAL INH SCH ×4 (08:04→19:40)
[2017-01-10] MEDS ORDERED: PHYTONADIONE 5 MG TAB PO STA (08:19)
--- NOTE | 2017-01-10 08:28 | Progress Note ---
Subjective Date of Service: Jan 10, 2017. Subjective Pt evaluation today including: conversation w/ patient, physical exam, chart review Still needing oxygen (2 lits per min). No CP. Problem List Medical Problems: (1) Cellulitis of left lower extremity Status: Acute (2) Sepsis Status: Acute Review of Systems Respiratory: + wheezing Cardiac: + edema Medications Medications (Trade) Dose Ordered Sig/Sukhwinder Route Start Time Stop Time Status Last Admin Dose Admin Furosemide 20 mg 20 mg BID17 PO 01/10/17 09:00 02/09/17 08:59 01/10/17 07:44 20 MG Furosemide/Syringe (Lasix Inj/ Syringe) 4 ml @ 4 mls/min TODAY@1330 ONCE IV 01/09/17 12:45 01/09/17 13:12 DC 01/09/17 15:11 4 MLS/MIN Objective Vital Signs Date Time Temp Pulse Resp B/P Pulse Ox O2 Delivery O2 Flow Rate FiO2 01/10/17 08:04 71 20 96 Nasal Cannula 2.0 01/10/17 07:56 36.9 69 20 169/73 95 CPAP 2.0 01/10/17 04:00 Nasal Cannula 3.0 CPAP 01/10/17 03:50 37.0 77 22 169/71 93 CPAP 01/10/17 00:09 37.1 68 21 165/63 93 CPAP 01/10/17 00:00 Nasal Cannula 3.0 CPAP 01/09/17 20:00 Nasal Cannula 3.0 CPAP 01/09/17 19:39 36.7 72 24 158/68 92 Nasal Cannula 2.0 01/09/17 19:30 78 20 92 Nasal Cannula 2.0 01/09/17 16:00 Nasal Cannula 2.0 01/09/17 15:54 36.7 64 24 135/57 96 Nasal Cannula 2.0 01/09/17 15:53 72 30 92 Nasal Cannula 2.0 01/09/17 12:07 81 30 89 Nasal Cannula 2.0 01/09/17 12:00 Nasal Cannula 2.0 01/09/17 11:33 37.1 70 20 138/67 95 2.0 Physical Exam Eyes: normal inspection ENT: hearing grossly normal Neck: supple Respiratory/Chest: chest non-tender, + wheezing Cardiovascular: + systolic murmur, + irregularly irregular Abdomen: normal bowel sounds, non tender, soft Skin: + pallor Laboratory Results Last 24 Hours Test 01/09/17 11:12 01/09/17 12:09 01/09/17 15:52 01/09/17 20:03 Bedside Glucose 238 mg/dl 197 mg/dl 172 mg/dl Vancomycin Level Trough 17.8 mcg/ml Test 01/10/17 06:06 Prothrombin Time 52.4 SECONDS Prothromb Time International Ratio 4.6 Sodium Level 145 mmol/L Potassium Level 5.6 mmol/L Chloride Level 115 mmol/L Carbon Dioxide Level 25 mmol/L Anion Gap 5.0 mmol/L Blood Urea Nitrogen 44 mg/dl Creatinine 1.30 mg/dl Est Creatinine Clear Calc Drug Dose 60.8 ml/min Estimated GFR () 59.3 Estimated GFR (Non- 51.2 BUN/Creatinine Ratio 34.0 Random Glucose 120 mg/dl Calcium Level 8.7 mg/dl Assessment and Plan 81-year-old male here with SEPSIS from diabetic foot infection, atn AND acute on chronic renal failure and chronic respiratory failure with nocturnal hypoxia requiring CPAP at 11 cm. Sepsis from MRSA, vancomycin with pharmacy dosing now improving renal failure; since aortic valve TTE performed and negative, and ID consult to recommend duration of antibiotics and likely choice( decision for PICC and outpt treatment will be after all 4 blood cultures are negative). MRI left foot done y.day shows osteomyelitis and hence will consult Ortho. Pt will need midline or PICC line for IV abx. Most recent blood cultures are negative. Fungal infection, oral and panniculitis candidal-resolving Nystatin swish and swallow and topical Nystatin powder. Diabetic foot abrasions and likely portals of infection. wound care consultation providing topical care antihypertensive medications of Coreg, losartan to be held, renal function improved will look for nephrology to recommend restarting lasix 01/07. Acute renal failure, ATN, improving and renal function now back to baseline. Hyperkalemia secondary to CKD. Will give oral kayexalate. Recheck BmP later today chronic respiratory failure, DuoNebs, did have volume overload, acute respiratory failure, resolved with stopping fluid and using one dose of lasix q.i.d. respiratory with CPAP at night with oxygen. Will consult Pulmonary for optimization of pulm status prior to surgery on Sunday. Will start IV Solumedrol given persistent wheezing. Regarding his anticoagulation supra therapeutic at time of admit and now and hence held warfarin. No coumadin today since INR is greater than 4.0. Will give Vit K 5mg now. Recheck INR in am. If INR is still high will give Vit K and FFP. Aim for INR of less than 1.5 prior to surgery diabetes holding lispro 75/25 and converted to Lantus 20 b.i.d. with insulin sliding scale and pharmacy adjustment. DVT prevention warfarin. HE IS A FULL CODE.
[2017-01-10] MEDS: METHYLPREDNISOLONE IV 40 MG in SYRINGE 0 ML IV SCH ×2 (09:22→18:10)
[2017-01-10] MEDS: CARVEDILOL 3.125 MG TAB PO SCH ×2 (10:01→20:28)
[2017-01-10] MEDS: VANCOMYCIN INJ 1,500 MG in SODIUM CHLORIDE 0.9% 500ML 500 ML IV SCH (12:11)
--- NOTE | 2017-01-10 12:30 | Nephrology Progress Note ---
Nephrology Progress Note Date of Service Jan 10, 2017. Chief Complaint Follow-up for acute kidney injury with history of chronic kidney disease. Subjective Mr. Avery was seen and examined in his room this morning. He seems to have mild respiratory distress with while talking or doing any activity but otherwise feeling well at rest. Responding to diuretics and net negative almost 2 liters. Renal function remained stable creatinine in fact further improved to 1.3. potassium was elevated at 5.6.. Blood pressure has been running high as he has been off of carvedilol and losartan. Review of Systems A complete review of systems was performed. Pertinent positives are noted above. All other systems are negative. Vital Signs Last 8 Hrs Date Time Temp Pulse Resp B/P Pulse Ox O2 Delivery O2 Flow Rate FiO2 01/10/17 08:04 71 20 96 Nasal Cannula 2.0 01/10/17 07:56 36.9 69 20 169/73 95 CPAP 2.0 01/10/17 04:00 Nasal Cannula 3.0 CPAP 01/10/17 03:50 37.0 77 22 169/71 93 CPAP I & O 24-Hour Column 01/10/17 08:00 Intake Total 840 ml Output Total 3175 ml Balance -2335 ml Last Recorded Weight Weight (Kilograms): 135.200 Physical Exam GENERAL: Elderly male, AAA x 3, pleasant, healthy-appearing, not in any distress. NECK: Supple, + JVD. RESPIRATORY: Normal breathing efforts, no accessory muscle use, occasional wheezing and decreased breath sound. CARDIOVASCULAR: S1, S2 normal, rate rhythm regular. EXTREMITY: trace B/L lower extremity edema NEURO: speech fluent. 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 Originally from [employer]. 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 Never a smoker Laboratory Results Past 24 Hours 01/10/17 06:06 Test 01/09/17 11:12 01/09/17 12:09 01/09/17 15:52 01/09/17 20:03 Bedside Glucose 238 mg/dl (70-99) 197 mg/dl (70-99) 172 mg/dl (70-99) Vancomycin Level Trough 17.8 mcg/ml (SEE COMMENT) Test 01/10/17 06:06 Prothrombin Time 52.4 SECONDS (9.0-12.0) Prothromb Time International Ratio 4.6 (0.9-1.1) Anion Gap 5.0 mmol/L (3-11) Est Creatinine Clear Calc Drug Dose 60.8 ml/min Estimated GFR () 59.3 Estimated GFR (Non- 51.2 BUN/Creatinine Ratio 34.0 (10-20) Calcium Level 8.7 mg/dl (8.5-10.1) Allergies Coded Allergies: Chlorpheniramine (Unverified Allergy, Unknown, ., 01/02/17) Phenylpropanolamine (Unverified Allergy, Unknown, ., 01/02/17) Medications Current Inpatient Medications Medications (Trade) Dose Ordered Sig/Sukhwinder Route Start Time Stop Time Status Last Admin Dose Admin Acetaminophen (Tylenol Tab) 650 mg Q4H PRN PO 01/02/17 09:30 02/01/17 09:29 Al Hydrox/Mg Hydrox/Simethicone (Maalox Max Susp) 15 ml Q4H PRN PO 01/02/17 09:30 02/01/17 09:29 Magnesium Hydroxide (Milk Of Magnesia Susp) 30 ml Q12H PRN PO 01/02/17 09:30 02/01/17 09:29 01/06/17 08:35 30 ML Ondansetron HCl (Zofran Inj) 4 mg Q6H PRN IV 01/02/17 09:30 02/01/17 09:29 Nitroglycerin (Nitrostat Tab) 0.4 mg UD PRN SL 01/02/17 09:30 02/01/17 09:29 Polyethylene (Miralax Powder Packet) 17 gm DAILY PRN PO 01/02/17 09:30 02/01/17 09:29 01/06/17 08:35 17 GM Albuterol/ Ipratropium (Duoneb) 3 ml QIDR INH 01/02/17 12:00 02/01/17 11:59 01/10/17 08:04 3 ML Levothyroxine Sodium (Synthroid Tab) 100 mcg DAILYBB PO 01/03/17 06:00 02/02/17 08:59 01/10/17 05:56 100 MCG Tamsulosin HCl (Flomax Cap) 0.4 mg DAILY PO 01/03/17 09:00 02/02/17 08:59 01/10/17 07:45 0.4 MG Nystatin (Mycostatin Powder) 1 appln BID EXT 01/02/17 21:00 02/01/17 20:59 01/10/17 07:49 1 APPLN Nystatin (Mycostatin Susp) 5 ml QID PO 01/02/17 13:00 01/12/17 12:59 01/10/17 07:43 5 ML Morphine Sulfate (MoRPHine SULFATE INJ) 2 mg Q4H PRN IV 01/02/17 09:30 01/16/17 09:29 01/05/17 08:01 2 MG Morphine Sulfate (MoRPHine SULFATE INJ) 4 mg Q4H PRN IV 01/02/17 09:30 01/16/17 09:29 01/06/17 20:56 4 MG Oxycodone HCl (Roxicodone Immediate Rel Tab) 10 mg Q6 PRN PO 01/02/17 09:30 01/16/17 09:29 01/09/17 18:10 10 MG Insulin Aspart (novoLOG ASPART) SLIDING SCALE PARAMETER ACHS SC 01/02/17 11:00 02/01/17 10:59 01/10/17 07:46 4 UNITS Insulin Glargine (Lantus Solostar Pen) 20 unit BID SC 01/02/17 21:00 02/01/17 20:59 01/10/17 07:47 20 UNIT Vancomycin HCl (Consult) 1 ea UD PRN N/A 01/02/17 10:00 02/01/17 09:59 Miconazole Nitrate (Desenex Powder) 1 appln DAILY EXT 01/03/17 09:00 02/02/17 08:59 01/10/17 07:47 1 APPLN Multi-Ingredient Ointment (Eucerin Unscented Cr) 1 appln DAILY EXT 01/03/17 09:00 02/02/17 08:59 01/10/17 07:48 1 APPLN Glucose (Glucose 40% Gel) 15-30 GRAMS 15 GRAMS... UD PRN PO 01/02/17 13:15 02/01/17 13:14 Glucose (Glucose Chew Tab) 4-8 Tablets 4 Tabl... UD PRN PO 01/02/17 13:15 02/01/17 13:14 Dextrose (Dextrose 50% 50ML Syringe) 25-50ML OF 50% DW IV FOR... UD PRN IV 01/02/17 13:15 02/01/17 13:14 Glucagon (Glucagon Inj) 1 mg UD PRN SQ 01/02/17 13:15 02/01/17 13:14 Guaifenesin 1200 mg 1,200 mg Q12 PO 01/04/17 21:00 02/03/17 20:59 01/10/17 07:44 1,200 MG Vancomycin HCl/ Sodium Chloride (Vancomycin Inj/ Nss 500ml) 530 ml @ 200 mls/hr DAILY@1200 IV 01/07/17 13:00 01/21/17 12:59 01/09/17 13:49 200 MLS/HR Albuterol/ Ipratropium (Duoneb) 3 ml Q4H PRN INH 01/09/17 04:30 02/08/17 04:29 Furosemide 20 mg 20 mg BID17 PO 01/10/17 09:00 02/09/17 08:59 01/10/17 07:44 20 MG Methylprednisolone Sodium Succinate/ Syringe (Solu-Medrol IV/ Syringe) 0.64 ml @ 1.5 mls/min Q8H IV 01/10/17 10:00 02/09/17 13:59 Impression (1) Acute kidney injury (2) Stage 3 chronic kidney disease (3) Cellulitis of left lower extremity (4) A-fib (5) Diabetes (6) Pulmonary hypertension Mr. Avery was admitted to the hospital with LLE cellulitis, SIRS, relative hypotension and acute on chronic kidney injury. He has underlying diabetic nephropathy. His baseline creatinine has been 2.0. Blood cultures are currently pending. Urinalysis is positive for blood due to rucker catheter. Proteinuria is present c/w diabetic nephropathy. Patient has been started on empiric IV Vanco & Zosyn therapy PMH - AODM, BMI > 40, HTN, hyperlipidemia, ASCVD s/p CABG w/ AVR, chronic atrial fibrillation, [place], gout, kidney stones and recurrent UTI. Recommendations -- acute kidney injury resolved, creatinine 1.3 -- give Kayexalate 15 gram p.o. x1 dose --resume carvedilol and continue to hold losartan due to hyperkalemia -- continue Lasix 20 milligram p.o. twice a day --continue physical therapy to decide whether he will need rehab or can go home --also he will need to have decision regarding antibiotic, if he needs access for prolonged antibiotic therapy, although would like to avoid PICC line considering CKD and a midline would be preferable, however if midline is not possible and patient needs IV antibiotic for few weeks okay to place a PICC line in non dominant upper extremity.
[2017-01-10] MEDS ORDERED: WARFARIN SOD 2.5 MG TAB PO SCH (16:00)
--- NOTE | 2017-01-10 20:57 | Infectious Disease Progress Nt ---
Progress Note Date of Service Jan 10, 2017. Subjective Pt evaluation today including: conversation w/ patient, physical exam, chart review, lab review, review of studies, conversation w/ instructional consultant, review of inpatient medication list Orthopedic consultation noted. Plans for toe amputation on Sunday. Offers no new complaints. Remains afebrile. All Other Systems: Reviewed and Negative Medications Current Inpatient Medications Medications (Trade) Dose Ordered Sig/Sukhwinder Route Start Time Stop Time Status Last Admin Dose Admin Acetaminophen (Tylenol Tab) 650 mg Q4H PRN PO 01/02/17 09:30 02/01/17 09:29 Al Hydrox/Mg Hydrox/Simethicone (Maalox Max Susp) 15 ml Q4H PRN PO 01/02/17 09:30 02/01/17 09:29 Magnesium Hydroxide (Milk Of Magnesia Susp) 30 ml Q12H PRN PO 01/02/17 09:30 02/01/17 09:29 01/06/17 08:35 30 ML Ondansetron HCl (Zofran Inj) 4 mg Q6H PRN IV 01/02/17 09:30 02/01/17 09:29 Nitroglycerin (Nitrostat Tab) 0.4 mg UD PRN SL 01/02/17 09:30 02/01/17 09:29 Polyethylene (Miralax Powder Packet) 17 gm DAILY PRN PO 01/02/17 09:30 02/01/17 09:29 01/06/17 08:35 17 GM Albuterol/ Ipratropium (Duoneb) 3 ml QIDR INH 01/02/17 12:00 02/01/17 11:59 01/10/17 19:40 3 ML Levothyroxine Sodium (Synthroid Tab) 100 mcg DAILYBB PO 01/03/17 06:00 02/02/17 08:59 01/10/17 05:56 100 MCG Tamsulosin HCl (Flomax Cap) 0.4 mg DAILY PO 01/03/17 09:00 02/02/17 08:59 01/10/17 07:45 0.4 MG Nystatin (Mycostatin Powder) 1 appln BID EXT 01/02/17 21:00 02/01/17 20:59 01/10/17 20:28 1 APPLN Nystatin (Mycostatin Susp) 5 ml QID PO 01/02/17 13:00 01/12/17 12:59 01/10/17 20:26 5 ML Morphine Sulfate (MoRPHine SULFATE INJ) 2 mg Q4H PRN IV 01/02/17 09:30 01/16/17 09:29 01/05/17 08:01 2 MG Morphine Sulfate (MoRPHine SULFATE INJ) 4 mg Q4H PRN IV 01/02/17 09:30 01/16/17 09:29 01/06/17 20:56 4 MG Oxycodone HCl (Roxicodone Immediate Rel Tab) 10 mg Q6 PRN PO 01/02/17 09:30 01/16/17 09:29 01/09/17 18:10 10 MG Insulin Aspart (novoLOG ASPART) SLIDING SCALE PARAMETER ACHS SC 01/02/17 11:00 02/01/17 10:59 01/10/17 20:32 5 UNITS Insulin Glargine (Lantus Solostar Pen) 20 unit BID SC 01/02/17 21:00 02/01/17 20:59 01/10/17 20:32 20 UNIT Vancomycin HCl (Consult) 1 ea UD PRN N/A 01/02/17 10:00 02/01/17 09:59 Miconazole Nitrate (Desenex Powder) 1 appln DAILY EXT 01/03/17 09:00 02/02/17 08:59 01/10/17 07:47 1 APPLN Multi-Ingredient Ointment (Eucerin Unscented Cr) 1 appln DAILY EXT 01/03/17 09:00 02/02/17 08:59 01/10/17 07:48 1 APPLN Glucose (Glucose 40% Gel) 15-30 GRAMS 15 GRAMS... UD PRN PO 01/02/17 13:15 02/01/17 13:14 Glucose (Glucose Chew Tab) 4-8 Tablets 4 Tabl... UD PRN PO 01/02/17 13:15 02/01/17 13:14 Dextrose (Dextrose 50% 50ML Syringe) 25-50ML OF 50% DW IV FOR... UD PRN IV 01/02/17 13:15 02/01/17 13:14 Glucagon (Glucagon Inj) 1 mg UD PRN SQ 01/02/17 13:15 02/01/17 13:14 Guaifenesin 1200 mg 1,200 mg Q12 PO 01/04/17 21:00 02/03/17 20:59 01/10/17 20:28 1,200 MG Vancomycin HCl/ Sodium Chloride (Vancomycin Inj/ Nss 500ml) 530 ml @ 200 mls/hr DAILY@1200 IV 01/07/17 13:00 01/21/17 12:59 01/10/17 12:11 200 MLS/HR Albuterol/ Ipratropium (Duoneb) 3 ml Q4H PRN INH 01/09/17 04:30 02/08/17 04:29 Furosemide 20 mg 20 mg BID17 PO 01/10/17 09:00 02/09/17 08:59 01/10/17 17:01 20 MG Methylprednisolone Sodium Succinate/ Syringe (Solu-Medrol IV/ Syringe) 0.64 ml @ 1.5 mls/min Q8H IV 01/10/17 10:00 02/09/17 13:59 01/10/17 18:10 1.5 MLS/MIN Carvedilol (Coreg Tab) 3.125 mg BID PO 01/10/17 10:00 02/09/17 09:59 01/10/17 20:28 3.125 MG Objective Vital Signs Date Time Temp Pulse Resp B/P Pulse Ox O2 Delivery O2 Flow Rate FiO2 01/10/17 19:44 62 20 93 Nasal Cannula 2.0 01/10/17 19:36 36.7 63 24 144/74 92 Nasal Cannula 2.0 01/10/17 16:04 36.5 67 24 157/92 94 Nasal Cannula 2.0 01/10/17 16:00 37.1 75 18 145/71 94 Nasal Cannula 2.0 01/10/17 16:00 95 Nasal Cannula 2.0 01/10/17 15:37 61 20 94 Nasal Cannula 2.0 01/10/17 14:36 101 86 01/10/17 12:00 37.1 75 18 145/71 94 Nasal Cannula 2.0 01/10/17 12:00 95 Nasal Cannula 2.0 01/10/17 11:21 75 20 91 Nasal Cannula 2.0 01/10/17 08:04 71 20 96 Nasal Cannula 2.0 01/10/17 08:00 95 Nasal Cannula 2.0 01/10/17 07:56 36.9 69 20 169/73 95 CPAP 2.0 01/10/17 04:00 Nasal Cannula 3.0 CPAP 01/10/17 03:50 37.0 77 22 169/71 93 CPAP 01/10/17 00:09 37.1 68 21 165/63 93 CPAP 01/10/17 00:00 Nasal Cannula 3.0 CPAP Physical Exam General Appearance: WD/WN, no apparent distress Eyes: normal inspection, sclerae normal ENT: normal ENT inspection, pharynx normal Neck: supple, no adenopathy, trachea midline Respiratory/Chest: chest non-tender, no respiratory distress, + wheezing Cardiovascular: no gallop, no murmur, + irregularly irregular Abdomen: normal bowel sounds, non tender, soft, no organomegaly Extremities: non-tender, no calf tenderness Neurologic/Psychiatric: alert, oriented x 3 Skin: normal color, no rash, + pertinent finding (Second and 3rd toes left foot unchanged) Lymphatic: no adenopathy Laboratory Results Last 24 Hours Test 01/10/17 06:06 01/10/17 07:07 01/10/17 11:40 01/10/17 16:13 Prothrombin Time 52.4 SECONDS Prothromb Time International Ratio 4.6 Sodium Level 145 mmol/L Potassium Level 5.6 mmol/L Chloride Level 115 mmol/L Carbon Dioxide Level 25 mmol/L Anion Gap 5.0 mmol/L Blood Urea Nitrogen 44 mg/dl Creatinine 1.30 mg/dl Est Creatinine Clear Calc Drug Dose 60.8 ml/min Estimated GFR () 59.3 Estimated GFR (Non- 51.2 BUN/Creatinine Ratio 34.0 Random Glucose 120 mg/dl Calcium Level 8.7 mg/dl Bedside Glucose 123 mg/dl 179 mg/dl 247 mg/dl Assessment and Plan 81 yo male with MRSA sepsis likely from left foot and leg infection associated with DM with neuropathy and with CARLO. Vancomycin appropriate therapy for now, and given presence of osteomyelitis on x-ray, feel that patient likely will require 6 weeks of antibiotics. For amputation on Sunday.
[2017-01-11] VITALS (12 sets, daily range): BP systolic 125–166; BP diastolic 61–94; PULSE 47–83; TEMP 36.4–36.9; O2SAT 87–97
[2017-01-11] MEDS ORDERED: NURSING VERBAL MED ORDER ONE (00:15)
[2017-01-11] MEDS: INSULIN ASPART 100 UNITS/ML 3 ML PEN SC SCH ×5 (00:30→21:16)
[2017-01-11] MEDS: METHYLPREDNISOLONE IV 40 MG in SYRINGE 0 ML IV SCH ×2 (02:00→09:34)
[2017-01-11] MEDS: LEVOTHYROXINE 100 MCG TAB PO SCH (05:05)
[2017-01-11 07:05] LABS: MEAN CELL VOLUME 93.9 fL (80-100); MEAN CORPUSCULAR HEMOGLOBIN 29.8 pg (25-34); MEAN CORPUSCULAR HGB CONC 31.7 g/dl (32-36); MEAN PLATELET VOLUME 8.7 fL (7.4-10.4); PLATELET COUNT 472 K/uL (130-400); RED BLOOD COUNT 3.09 M/uL (4.7-6.1); WHITE BLOOD COUNT 19.29 K/uL (4.8-10.8)
[2017-01-11 07:21] LABS: INR 2.4 (0.9-1.1); PROTHROMBIN TIME (PATIENT) 26.5 SECONDS (9.0-12.0)
[2017-01-11 07:41] LABS: BUN/CREATININE RATIO 31.5 (10-20); CALCIUM 8.6 mg/dl (8.5-10.1); CREATININE 1.5 mg/dl (0.60-1.40); POTASSIUM 6.1 mmol/L (3.5-5.1)
[2017-01-11] MEDS: ALBUT/IPRATROP 3MG/0.5MG NEB 3 ML VIAL INH SCH ×4 (07:50→18:18)
[2017-01-11] MEDS ORDERED: SODIUM POLYST. SULF SUSP 15G/60ML PO ONE (08:00)
--- NOTE | 2017-01-11 09:10 | Pulmonary Consultation ---
History General Date of Service: Jan 11, 2017. Stated Complaint: Hypoxemia HPI The patient is a 81 year old male who presents to [facility] with complaints of SIRS. The patient's primary care provider is Winston Harper M.D.. 81 y.o.male w/multiple medical problems. His medical history is significant for anemia, ASCVD s/p bypass surgery, asthma, A-Fib (on Coumadin therapy), stage III CKD, RVD, CHF, diabetes w/neuropathy, hyperlipidemia, HTN, hypothyroidism, pulmonary HTN, and secondary hyperparathyroidism. Admitted s/p controlled fall with left 3rd toe osteomyelitis. He has been experiencing notable hypoxemia/ dyspnea since his admission. Today he denies: productive cough, cardiac CP, pleurisy, fever, chills Work-Up: EKG (01/02/17) A-fib, rate: 60 Cardiac Echo (01/02/17) LV: EF=55-60%, mild LVH, septal flattening RV: dilated, reduced systolic function, TAPSE: <1.6cm LA: moderately dilated RA: moderately dilated TR: mild OK: mild IVC: dilated with reduced inspiratory collapse WBC: [id number] H/H: 10/299/29 Plt: [id number] INR: 1.84.6 (currently: 2.4, came in at 1.8) BUN/Cr: 44/1.12759/3.6065/2.50 T bili: 2.0 D. Bili: 1.0 AST: 80 ALK: 346 CK: 1903 ALB: 2.9 UA: positive for signs of infection InFlu A&B: Negative Ag & PCR Microbiology Blood x2 (01/02/17) MRSA Radiology: CXR (01/02/17) Cardiomegaly Renal US (01/03/2017) (b) atrophic but no hydronephrosis Left Foot (01/03/17) 2nd-4th: ulcers CXR (01/06/17) signs of volume overload MRI left foot (01/07/17) 3rd toe signs of acute osteomyelitis CXR (01/09/17) mild improvement in sings of volume overload Total: I/O2: -6.3L Historian: patient, EMS Review of Systems Constitutional: reports: malaise Eyes: reports: no symptoms ENT: reports: no symptoms Cardiovascular: reports: no symptoms Respiratory: reports: JOSE, cough, shortness of breath Gastrointestinal: reports: no symptoms Genitourinary - Male: reports: no symptoms Musculoskeletal: reports: joint pain, myalgias Integumentary: reports: no symptoms Neurologic: reports: no symptoms Psychiatric: reports: no symptoms Endocrine: no symptoms Hematologic / Lymphatic: no symptoms Allergic / Immunologic: no symptoms Past Medical History Past Medical History: * Anemia * CAD/TN * Asthma (last PFTs 04/27/2016) * FEV1/FVC: 91 * Moderately Reduced Diffusion Capacity DLCO: 49%, DL/VA:59% * Sever RVD (FVC: 41%, T%) * Atrial fibrillation * Chronic obstructive pulmonary disease * Congestive heart failure (CHF) * Hypothyroidism * Pulmonary hypertension * Sever Sleep apnea * CPAP: [id number]--6.5L O2 support * Avoid sleeping on our back * Stage III chronic kidney disease * Dermatitis, seborrheic * Diabetes * Elevated alkaline phosphatase level * Elevated LFTs * Hyperlipidemia * Hypertension * Ichthyosis * Painful diabetic neuropathy * Secondary hyperparathyroidism * Gout * Renal Calculi * UTI Past Surgical History: 1. Heart Valve Replacement 2. Knee Surgery 3. CABG Family History Mother 1. cardiac disorder / myocardial infarction 2. diabetes mellitus 3. hypertension Father 5. cardiac disorder 6. hypertension Social History Smoking Status: Never Smoker Marital status: Occupational Status: retired History of MDRO History of MDRO: Yes Type of MDRO: MRSA Allergies Coded Allergies: Chlorpheniramine (Unverified Allergy, Unknown, ., 01/02/17) Phenylpropanolamine (Unverified Allergy, Unknown, ., 01/02/17) Current Medications Reported Home Medications Medications Dose Route/Sig Max Daily Dose Days Date Category Dose Instructions Glucophage Ext Rel (Metformin HCl) 500 Mg Tab 500 Mg PO BID 01/02/17 Reported Oxygen Gas 2-3 Liter NA HS PRN 01/02/17 Reported Vitamin D 09416 Unit (Ergocalciferol) 50,000 Unit Cap 50,000 Unit PO MONTHLY 01/02/17 Reported Duoneb (Ipratropium-Albuterol) 3 Ml Nebu 1 Treatment INH Q4H 01/02/17 Reported Jantoven (Warfarin Sodium) 5 Mg Tab 2.5 Mg PO UD 01/02/17 Reported TAKES 2.5MG ONLY ON MONDAYS Jantoven (Warfarin Sodium) 5 Mg Tab 5 Mg PO UD 01/02/17 Reported TAKES 5MG EVERYDAY BUT SUNDAY Flomax (Tamsulosin Hcl) 0.4 Mg Cap 0.4 Mg PO DAILY 01/02/17 Reported Zocor (Simvastatin) 20 Mg Tab 20 Mg PO DAILY 01/02/17 Reported Cozaar (Losartan Potassium) 50 Mg Tab 50 Mg PO DAILY 01/02/17 Reported Levothyroxine Sodium 100 Mcg Tab 100 Mcg PO DAILY 01/02/17 Reported Humalog Mix 75/25 (Insulin Human Lispro) 100 Units/ Inj 30 Units SC BID 01/02/17 Reported Lasix (Furosemide) 20 Mg Tab 20 Mg PO Q2D 01/02/17 Reported Coreg (Carvedilol) 3.125 Mg Tab 3.125 Mg PO BID 01/02/17 Reported Physical Physical Exam Vital Signs: Date Time Temp Pulse Resp B/P Pulse Ox O2 Delivery O2 Flow Rate FiO2 01/11/17 07:48 36.5 47 18 135/61 96 CPAP 2.0 01/11/17 04:00 Nasal Cannula 2.0 01/11/17 03:10 36.5 61 18 166/82 96 Nasal Cannula 2.0 01/11/17 00:00 Nasal Cannula 2.0 01/10/17 23:47 36.5 61 18 154/65 91 Room Air 01/10/17 20:30 Nasal Cannula 2.0 01/10/17 19:44 62 20 93 Nasal Cannula 2.0 01/10/17 19:36 36.7 63 24 144/74 92 Nasal Cannula 2.0 01/10/17 16:04 36.5 67 24 157/92 94 Nasal Cannula 2.0 01/10/17 16:00 37.1 75 18 145/71 94 Nasal Cannula 2.0 01/10/17 16:00 95 Nasal Cannula 2.0 01/10/17 15:37 61 20 94 Nasal Cannula 2.0 01/10/17 14:36 101 86 01/10/17 12:00 37.1 75 18 145/71 94 Nasal Cannula 2.0 01/10/17 12:00 95 Nasal Cannula 2.0 01/10/17 11:21 75 20 91 Nasal Cannula 2.0 General Appearance: NO APPARENT DISTRESS Head: NORMOCEPHALIC, ATRAUMATIC Eyes: PERRLA, NO DISCHARGE, EOMI, SCLERAE NORMAL, CONJUNCTIVAE NORMAL ENT: NORMAL EAR EXAM, NORMAL NASAL EXAM, NORMAL MOUTH EXAM, NORMAL THROAT EXAM Neck: NORMAL RANGE OF MOTION, NO TENDERNESS, TRACHEA MIDLINE, NO STRIDOR Respiratory: rales, wheezing, other (US: global B-lines, smalll bilateral pleural effusions) Cardiovasular: irregular rate, abnormal rhythm Abdomen: NON TENDER, NORMAL BOWEL SOUNDS, NO REBOUND, NO MASSES, NO GUARDING Genitourinary - Male: EXTERNAL GENITALIA NORMAL Back: NORMAL INSPECTION, NO MIDLINE TENDERNESS, NO CVA TENDERNESS Upper Extremities: NO EDEMA, NO DEFORMITY, NORMAL ROM Lower Extremities: abnormal exam, edema, other (left 2-4th toe ulceration ) Edema: LUE, Bilateral LE (2+) Pulses: carotid (R) (1+), carotid (L) (1+), dorsalis pedis (R) (1+), dorsalis pedis (L) (1+) Neuro: ALERT, ORIENTED x 3, NORMAL MOTOR EXAM, NORMAL SENSATION Reflexes: biceps (R) (1+), bicpes (L) (1+) Babinski Testing: right (equivocal) Psychiatric: NORMAL AFFECT, NO SUICIDAL IDEATION Diagnostics Labs Results Past 24 Hours Test 01/10/17 11:40 01/10/17 16:13 01/10/17 20:29 01/10/17 23:41 Range/Units Bedside Glucose 179 247 255 232 70-99 mg/dl Test 01/11/17 06:12 01/11/17 06:26 Range/Units White Blood Count 19.29 4.8-10.8 K/uL Red Blood Count 3.09 4.7-6.1 M/uL Hemoglobin 9.2 14.0-18.0 g/dL Hematocrit 29.0 42-52 % Mean Corpuscular Volume 93.9 80-100 fL Mean Corpuscular Hemoglobin 29.8 25-34 pg Mean Corpuscular Hemoglobin Concent 31.7 32-36 g/dl RDW Standard Deviation 55.0 36.4-46.3 fL RDW Coefficient of Variation 15.9 11.5-14.5 % Platelet Count 472 130-400 K/uL Mean Platelet Volume 8.7 7.4-10.4 fL Prothrombin Time 26.5 9.0-12.0 SECONDS Prothromb Time International Ratio 2.4 0.9-1.1 Sodium Level 142 136-145 mmol/L Potassium Level 6.1 3.5-5.1 mmol/L Chloride Level 111 98-107 mmol/L Carbon Dioxide Level 25 21-32 mmol/L Anion Gap 6.0 3-11 mmol/L Blood Urea Nitrogen 47 7-18 mg/dl Creatinine 1.50 0.60-1.40 mg/dl Est Creatinine Clear Calc Drug Dose 53.1 ml/min Estimated GFR () 49.9 Estimated GFR (Non- 43.0 BUN/Creatinine Ratio 31.5 10-20 Random Glucose 226 70-99 mg/dl Calcium Level 8.6 8.5-10.1 mg/dl Bedside Glucose 254 70-99 mg/dl Diagnostic Radiology Radiology: CXR (01/02/17) Cardiomegaly Renal US (01/03/2017) (b) atrophic but no hydronephrosis Left Foot (01/03/17) 2nd-4th: ulcers CXR (01/06/17) signs of volume overload MRI left foot (01/07/17) 3rd toe signs of acute osteomyelitis CXR (01/09/17) mild improvement in sings of volume overload EKG EKG (01/02/17) A-fib, rate: 60 Impression Assessment and Plan 81 y/o male with multiple medical issues admitted for left toe cellulitis and continued hypoxemia: 1) Hypoxemia: Patient has multiple pulmonary issues; RVD, EVENS, decreased DLCO and possible Pulm HTN most likely Group II & III. He is also in a volume overload state at this time with blue protocol thoracic US evaluation showing global B-lines and small bilateral pleural effusions. I will drop this patient' s steroids at this time as they are increasing his water retention and suggest we diuresis this patient even more. 2) Diffusion abnormality: Patient's PFTs due show an RVD process with a low DLCO. When the patient is not volume overload I suggest we work him up for possible ILD with a HRCT of the chest and possible right heart cath. 3) COPD: The patient's PFT's from 04/27/2016 do not pr diagnosis COPD and as he has no history of smoking/second hand exposure or other known etiologies of COPD this diagnosis is inappropriate at this time. His PFT's do so significant reversibility suggesting asthma so continuation of steroids and inhalers is reasonable. 4) Pre-Op: This patient currently is at a high risk for mark-operative respiratory issues and I suggest we optimize his fluid status prior to him going to the OR. 5) EVENS: continue current CPAP treatment
[2017-01-11] MEDS: TAMSULOSIN HCL 0.4 MG CAP PO SCH (09:32)
[2017-01-11] MEDS: FUROSEMIDE 20 MG TAB PO SCH (09:33)
[2017-01-11] MEDS: CARVEDILOL 3.125 MG TAB PO SCH ×2 (09:33→21:10)
[2017-01-11] MEDS: GUAIFENESIN 600 MG TABCR PO SCH ×2 (09:33→21:09)
[2017-01-11] MEDS: NYSTATIN SUSP 500,000 U/5 ML UDC PO SCH ×4 (09:34→21:09)
[2017-01-11] MEDS: MICONAZOLE NITRATE POWDER 43 GM EXT SCH (09:35)
[2017-01-11] MEDS: EUCERIN CR 120 GM JAR EXT SCH (09:35)
[2017-01-11] MEDS: NYSTATIN POWDER 15GM BTL EXT SCH ×2 (09:35→21:08)
[2017-01-11] MEDS: INSULIN GLARGINE SOLOSTAR 100 UNITS/ML 3 ML PEN SC SCH ×2 (09:37→21:16)
--- NOTE | 2017-01-11 10:57 | Nephrology Progress Note ---
Nephrology Progress Note Date of Service Jan 11, 2017. Chief Complaint Follow-up for acute kidney injury with history of chronic kidney disease. Subjective Ernesto Was seen and examined in his room this morning. He denies any significant shortness of breath or chest pain. Continues to have a bilateral lower extremity edema. Left foot infected seems pretty much same. renal function stable creatinine 1.3. Potassium has been running high, has not been on any FRANCY -inhibitor/ARB or spironolactone. Review of Systems A complete review of systems was performed. Pertinent positives are noted above. All other systems are negative. Vital Signs Last 8 Hrs Date Time Temp Pulse Resp B/P Pulse Ox O2 Delivery O2 Flow Rate FiO2 01/11/17 07:48 36.5 47 18 135/61 96 CPAP 2.0 01/11/17 04:00 Nasal Cannula 2.0 01/11/17 03:10 36.5 61 18 166/82 96 Nasal Cannula 2.0 I & O 24-Hour Column 01/11/17 08:00 Intake Total 978 ml Output Total 1250 ml Balance -272 ml Last Recorded Weight Weight (Kilograms): 137.000 Physical Exam GENERAL: Elderly male, AAA x 3, pleasant, healthy-appearing, not in any distress. NECK: Supple, + JVD. RESPIRATORY: Normal breathing efforts, no accessory muscle use, occasional wheezing and decreased breath sound. CARDIOVASCULAR: S1, S2 normal, rate rhythm regular. EXTREMITY: trace B/L lower extremity edema NEURO: speech fluent. 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 Originally from [employer] [place]. 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 Never a smoker Laboratory Results Past 24 Hours 01/11/17 06:12 01/11/17 06:12 Test 01/10/17 11:40 01/10/17 16:13 01/10/17 20:29 01/10/17 23:41 Bedside Glucose 179 mg/dl (70-99) 247 mg/dl (70-99) 255 mg/dl (70-99) 232 mg/dl (70-99) Test 01/11/17 06:12 01/11/17 06:26 Red Blood Count 3.09 M/uL (4.7-6.1) Mean Corpuscular Volume 93.9 fL (80-100) Mean Corpuscular Hemoglobin 29.8 pg (25-34) Mean Corpuscular Hemoglobin Concent 31.7 g/dl (32-36) RDW Standard Deviation 55.0 fL (36.4-46.3) RDW Coefficient of Variation 15.9 % (11.5-14.5) Mean Platelet Volume 8.7 fL (7.4-10.4) Prothrombin Time 26.5 SECONDS (9.0-12.0) Prothromb Time International Ratio 2.4 (0.9-1.1) Anion Gap 6.0 mmol/L (3-11) Est Creatinine Clear Calc Drug Dose 53.1 ml/min Estimated GFR () 49.9 Estimated GFR (Non- 43.0 BUN/Creatinine Ratio 31.5 (10-20) Calcium Level 8.6 mg/dl (8.5-10.1) Bedside Glucose 254 mg/dl (70-99) Allergies Coded Allergies: Chlorpheniramine (Unverified Allergy, Unknown, ., 01/02/17) Phenylpropanolamine (Unverified Allergy, Unknown, ., 01/02/17) Medications Current Inpatient Medications Medications (Trade) Dose Ordered Sig/Sukhwinder Route Start Time Stop Time Status Last Admin Dose Admin Acetaminophen (Tylenol Tab) 650 mg Q4H PRN PO 01/02/17 09:30 02/01/17 09:29 Al Hydrox/Mg Hydrox/Simethicone (Maalox Max Susp) 15 ml Q4H PRN PO 01/02/17 09:30 02/01/17 09:29 Magnesium Hydroxide (Milk Of Magnesia Susp) 30 ml Q12H PRN PO 01/02/17 09:30 02/01/17 09:29 01/06/17 08:35 30 ML Ondansetron HCl (Zofran Inj) 4 mg Q6H PRN IV 01/02/17 09:30 02/01/17 09:29 Nitroglycerin (Nitrostat Tab) 0.4 mg UD PRN SL 01/02/17 09:30 02/01/17 09:29 Polyethylene (Miralax Powder Packet) 17 gm DAILY PRN PO 01/02/17 09:30 02/01/17 09:29 01/06/17 08:35 17 GM Albuterol/ Ipratropium (Duoneb) 3 ml QIDR INH 01/02/17 12:00 02/01/17 11:59 01/11/17 07:50 3 ML Levothyroxine Sodium (Synthroid Tab) 100 mcg DAILYBB PO 01/03/17 06:00 02/02/17 08:59 01/11/17 05:05 100 MCG Tamsulosin HCl (Flomax Cap) 0.4 mg DAILY PO 01/03/17 09:00 02/02/17 08:59 01/10/17 07:45 0.4 MG Nystatin (Mycostatin Powder) 1 appln BID EXT 01/02/17 21:00 02/01/17 20:59 01/10/17 20:28 1 APPLN Nystatin (Mycostatin Susp) 5 ml QID PO 01/02/17 13:00 01/12/17 12:59 01/10/17 20:26 5 ML Morphine Sulfate (MoRPHine SULFATE INJ) 2 mg Q4H PRN IV 01/02/17 09:30 01/16/17 09:29 01/05/17 08:01 2 MG Morphine Sulfate (MoRPHine SULFATE INJ) 4 mg Q4H PRN IV 01/02/17 09:30 01/16/17 09:29 01/06/17 20:56 4 MG Oxycodone HCl (Roxicodone Immediate Rel Tab) 10 mg Q6 PRN PO 01/02/17 09:30 01/16/17 09:29 01/09/17 18:10 10 MG Insulin Aspart (novoLOG ASPART) SLIDING SCALE PARAMETER ACHS SC 01/02/17 11:00 02/01/17 10:59 01/11/17 00:30 4 UNITS Insulin Glargine (Lantus Solostar Pen) 20 unit BID SC 01/02/17 21:00 02/01/17 20:59 01/10/17 20:32 20 UNIT Vancomycin HCl (Consult) 1 ea UD PRN N/A 01/02/17 10:00 02/01/17 09:59 Miconazole Nitrate (Desenex Powder) 1 appln DAILY EXT 01/03/17 09:00 02/02/17 08:59 01/10/17 07:47 1 APPLN Multi-Ingredient Ointment (Eucerin Unscented Cr) 1 appln DAILY EXT 01/03/17 09:00 02/02/17 08:59 01/10/17 07:48 1 APPLN Glucose (Glucose 40% Gel) 15-30 GRAMS 15 GRAMS... UD PRN PO 01/02/17 13:15 02/01/17 13:14 Glucose (Glucose Chew Tab) 4-8 Tablets 4 Tabl... UD PRN PO 01/02/17 13:15 02/01/17 13:14 Dextrose (Dextrose 50% 50ML Syringe) 25-50ML OF 50% DW IV FOR... UD PRN IV 01/02/17 13:15 02/01/17 13:14 Glucagon (Glucagon Inj) 1 mg UD PRN SQ 01/02/17 13:15 02/01/17 13:14 Guaifenesin 1200 mg 1,200 mg Q12 PO 01/04/17 21:00 02/03/17 20:59 01/10/17 20:28 1,200 MG Vancomycin HCl/ Sodium Chloride (Vancomycin Inj/ Nss 500ml) 530 ml @ 200 mls/hr DAILY@1200 IV 01/07/17 13:00 01/21/17 12:59 01/10/17 12:11 200 MLS/HR Albuterol/ Ipratropium (Duoneb) 3 ml Q4H PRN INH 01/09/17 04:30 02/08/17 04:29 Furosemide 20 mg 20 mg BID17 PO 01/10/17 09:00 02/09/17 08:59 01/10/17 17:01 20 MG Methylprednisolone Sodium Succinate/ Syringe (Solu-Medrol IV/ Syringe) 0.64 ml @ 1.5 mls/min Q8H IV 01/10/17 10:00 02/09/17 13:59 01/11/17 02:00 1.5 MLS/MIN Carvedilol (Coreg Tab) 3.125 mg BID PO 01/10/17 10:00 02/09/17 09:59 01/10/17 20:28 3.125 MG Impression (1) Acute kidney injury (2) Stage 3 chronic kidney disease (3) Cellulitis of left lower extremity (4) A-fib (5) Diabetes (6) Pulmonary hypertension Mr. Avery was admitted to the hospital with LLE cellulitis, SIRS, relative hypotension and acute on chronic kidney injury. He has underlying diabetic nephropathy. His baseline creatinine has been 2.0. Blood cultures are currently pending. Urinalysis is positive for blood due to rucker catheter. Proteinuria is present c/w diabetic nephropathy. Patient has been started on empiric IV Vanco & Zosyn therapy PMH - AODM, BMI > 40, HTN, hyperlipidemia, ASCVD s/p CABG w/ AVR, chronic atrial fibrillation, EVENS, gout, kidney stones and recurrent UTI. Recommendations -- acute kidney injury resolved, creatinine 1.5 -- Kayexalate 30 gram p.o. x1 dose given this morning -- change diet to low-potassium diet --carvedilol and continue to hold losartan due to hyperkalemia -- he has been net-2 to 3 liters everyday, however has significant lower extremity edema. Will increase Lasix to 40 milligram twice a day to improve volume status however his respiratory status may not be only due to pulmonary congestion and there is possibility for underlying interstitial lung disease. -- decision on surgery for left foot as per Pulmonary and and surgery --continue physical therapy to decide whether he will need rehab or can go home .
[2017-01-11] MEDS ORDERED: FUROSEMIDE 20 MG TAB PO ONE (12:00)
[2017-01-11] MEDS: VANCOMYCIN INJ 1,500 MG in SODIUM CHLORIDE 0.9% 500ML 500 ML IV SCH (12:13)
--- NOTE | 2017-01-11 13:14 | Progress Note ---
Subjective Date of Service: Jan 11, 2017. Subjective Pt evaluation today including: conversation w/ patient, physical exam, chart review SOB improved and less wheezing. No CP or Abd pain or fevers. Problem List Medical Problems: (1) Cellulitis of left lower extremity Status: Acute (2) Sepsis Status: Acute Review of Systems Respiratory: + shortness of breath, + wheezing Cardiac: + edema Abdomen: No GI bleeding, No constipation, No diarrhea, No nausea, No pain, No problem reported, No see HPI, No vomiting Neurologic: No balance problems, No memory loss, No numbness/tingling, No paralysis, No problem reported, No see HPI, No vertigo, No weakness Medications Medications (Trade) Dose Ordered Sig/Sukhwinder Route Start Time Stop Time Status Last Admin Dose Admin Sodium Polystyrene Sulfonate (Kayexalate Susp) 30 gm TODAY@0800 ONCE PO 01/11/17 08:00 01/11/17 08:01 DC 01/11/17 08:56 30 GM Furosemide (Lasix Tab) 20 mg 1200 ONCE PO 01/11/17 12:00 01/11/17 12:01 DC 01/11/17 12:13 20 MG Objective Vital Signs Date Time Temp Pulse Resp B/P Pulse Ox O2 Delivery O2 Flow Rate FiO2 01/11/17 11:58 62 20 95 Nasal Cannula 2.0 01/11/17 11:25 36.9 56 16 154/81 92 Room Air 01/11/17 08:00 Nasal Cannula 2.0 01/11/17 07:48 36.5 47 18 135/61 96 CPAP 2.0 01/11/17 04:00 Nasal Cannula 2.0 01/11/17 03:10 36.5 61 18 166/82 96 Nasal Cannula 2.0 01/11/17 00:00 Nasal Cannula 2.0 01/10/17 23:47 36.5 61 18 154/65 91 Room Air 01/10/17 20:30 Nasal Cannula 2.0 01/10/17 19:44 62 20 93 Nasal Cannula 2.0 01/10/17 19:36 36.7 63 24 144/74 92 Nasal Cannula 2.0 01/10/17 16:04 36.5 67 24 157/92 94 Nasal Cannula 2.0 01/10/17 16:00 37.1 75 18 145/71 94 Nasal Cannula 2.0 01/10/17 16:00 95 Nasal Cannula 2.0 01/10/17 15:37 61 20 94 Nasal Cannula 2.0 01/10/17 14:36 101 86 Physical Exam General Appearance: WD/WN, + pertinent finding (seated in chair.) Eyes: normal inspection ENT: hearing grossly normal Neck: supple, no adenopathy, no JVD Respiratory/Chest: chest non-tender, + decreased breath sounds Cardiovascular: + systolic murmur, + irregularly irregular Abdomen: normal bowel sounds, non tender, soft Extremities: + pedal edema Laboratory Results Last 24 Hours Test 01/10/17 16:13 01/10/17 20:29 01/10/17 23:41 01/11/17 06:12 Bedside Glucose 247 mg/dl 255 mg/dl 232 mg/dl White Blood Count 19.29 K/uL Red Blood Count 3.09 M/uL Hemoglobin 9.2 g/dL Hematocrit 29.0 % Mean Corpuscular Volume 93.9 fL Mean Corpuscular Hemoglobin 29.8 pg Mean Corpuscular Hemoglobin Concent 31.7 g/dl RDW Standard Deviation 55.0 fL RDW Coefficient of Variation 15.9 % Platelet Count 472 K/uL Mean Platelet Volume 8.7 fL Prothrombin Time 26.5 SECONDS Prothromb Time International Ratio 2.4 Sodium Level 142 mmol/L Potassium Level 6.1 mmol/L Chloride Level 111 mmol/L Carbon Dioxide Level 25 mmol/L Anion Gap 6.0 mmol/L Blood Urea Nitrogen 47 mg/dl Creatinine 1.50 mg/dl Est Creatinine Clear Calc Drug Dose 53.1 ml/min Estimated GFR () 49.9 Estimated GFR (Non- 43.0 BUN/Creatinine Ratio 31.5 Random Glucose 226 mg/dl Calcium Level 8.6 mg/dl Test 01/11/17 06:26 01/11/17 09:46 01/11/17 10:47 Bedside Glucose 254 mg/dl 252 mg/dl Potassium Level 5.4 mmol/L \ Patient: SUE MANCINI LUCA III Address1: [address] Rec: [id number] Address2: Acct ID: [id number] [facility] Zip: [place] [address] Date: 1935 Sex: M Room/Bed: [facility] Ref Phy: Winston Harper M.D. SC: [email or web address] Att Phy: Shakeel Tanner M.D. Report #: [id number] Kalie Phy: Winston Harper M.D. Test: [id number] Admit Phy: Shakeel Tanner M.D. [employer]er: ALEXANDRE Interpreting Phy: Rigoberto Barry MD Diagnosis: SIRS Ordering Phy: Sunita Saunders MD Service Date: 01/09/17 Admit Date: 01/03/1704/18/17 MNE: [id number] CONF: DICTATED BY: Rigoberto Barry M.D.]] CC: Shakeel Tanner M.D. Guillard, Paul, M.D. Nasreen, Fahima MD Endcc: [~ rep ct add3]] CHEST ONE VIEW PORTABLE HISTORY: Short of breath. COMPARISON: Chest 01/06/2017. FINDINGS: The heart remains enlarged. Mild pulmonary edema and trace bilateral pleural effusions have slightly improved. No pneumothorax. Postsurgical changes within the anterior chest wall are again noted. IMPRESSION: Cardiomegaly with improvement in the mild pulmonary edema and trace bilateral pleural effusions. Electronically signed by: Rigoberto Barry M.D. 01/09/2017 2:52 PM Dictated Date/Time: 01/09/2017 2:51 PM The status of this report is Signed. Draft = Not yet reviewed or approved by Radiologist. Signed = Reviewed and approved by Radiologist. <AttendingPhy>Shakeel Tanner M.D.</AttendingPhy> <FamilyPhy>Winston Harper M.D.</FamilyPhy> <PrimaryPhy>Winston Harper M.D.</PrimaryPhy> <UnitNumber> [id number]</UnitNumber> Assessment and Plan 81-year-old male here with SEPSIS from diabetic foot infection, ATN and acute on chronic renal failure and chronic respiratory failure with nocturnal hypoxia requiring CPAP at 11 cm. Sepsis from MRSA, vancomycin with pharmacy dosing now improving renal failure; since aortic valve replacement history, TTE performed and negative, and ID consult to recommend duration of antibiotics and likely choice( decision for PICC and outpt treatment will be after all 4 blood cultures are negative). MRI left foot done y.day shows osteomyelitis and hence will consult Ortho. Ortho input appreciated. Pt will need midline or PICC line for IV abx. Most recent blood cultures are negative. Fungal infection, oral and panniculitis candidal-resolving Nystatin swish and swallow and topical Nystatin powder. Diabetic foot abrasions and likely portals of infection. wound care consultation providing topical care HTN: BP meds as per Renal. Losartan on hold as per Renal Hyperkalemia: Likely due to CKD. Low K diet. Kayexalate 30 grams given x 1 earlier today with improvement in serum potassium. Acute renal failure on CKD; improving and renal function now back to baseline. Dose of lasix increased to 40mg bid by Renal Hypoxia: Appreciate Pulmonary input for optimization of pulm status prior to surgery on Sunday. Will stop IV Solumedrol given volume status and as per Pulm recommendations (will start on prednisone orally with taper) A.fib: Was on coumadin and this has been held in anticipation of possible foot surgery. INR greater than 2.0 today. Will give 2.5mg Vit K orally once. Pre op eval: Appreciate Renal and Pulmonary input. DM2. holding lispro 75/25 and converted to Lantus 20 b.i.d. with insulin sliding scale and pharmacy adjustment. DVT prevention warfarin. HE IS A FULL CODE.
[2017-01-11] MEDS ORDERED: PHYTONADIONE 5 MG TAB PO STA (13:23)
[2017-01-11] MEDS: FUROSEMIDE 40 MG TAB PO SCH (17:04)
--- NOTE | 2017-01-11 19:57 | Infectious Disease Progress Nt ---
Progress Note Date of Service Jan 11, 2017. Subjective Pt evaluation today including: conversation w/ patient, physical exam, chart review, lab review, review of studies, conversation w/ operational risk consultant, review of inpatient medication list Feels somewat better today with less SOB. Remains afebrile. Awaiting foot surgery tomorrow. All Other Systems: Reviewed and Negative Medications Current Inpatient Medications Medications (Trade) Dose Ordered Sig/Sukhwinder Route Start Time Stop Time Status Last Admin Dose Admin Acetaminophen (Tylenol Tab) 650 mg Q4H PRN PO 01/02/17 09:30 02/01/17 09:29 Al Hydrox/Mg Hydrox/Simethicone (Maalox Max Susp) 15 ml Q4H PRN PO 01/02/17 09:30 02/01/17 09:29 Magnesium Hydroxide (Milk Of Magnesia Susp) 30 ml Q12H PRN PO 01/02/17 09:30 02/01/17 09:29 01/06/17 08:35 30 ML Ondansetron HCl (Zofran Inj) 4 mg Q6H PRN IV 01/02/17 09:30 02/01/17 09:29 Nitroglycerin (Nitrostat Tab) 0.4 mg UD PRN SL 01/02/17 09:30 02/01/17 09:29 Polyethylene (Miralax Powder Packet) 17 gm DAILY PRN PO 01/02/17 09:30 02/01/17 09:29 01/06/17 08:35 17 GM Albuterol/ Ipratropium (Duoneb) 3 ml QIDR INH 01/02/17 12:00 02/01/17 11:59 01/11/17 18:18 3 ML Levothyroxine Sodium (Synthroid Tab) 100 mcg DAILYBB PO 01/03/17 06:00 02/02/17 08:59 01/11/17 05:05 100 MCG Tamsulosin HCl (Flomax Cap) 0.4 mg DAILY PO 01/03/17 09:00 02/02/17 08:59 01/11/17 09:32 0.4 MG Nystatin (Mycostatin Powder) 1 appln BID EXT 01/02/17 21:00 02/01/17 20:59 01/11/17 09:35 1 APPLN Nystatin (Mycostatin Susp) 5 ml QID PO 01/02/17 13:00 01/12/17 12:59 01/11/17 17:04 5 ML Morphine Sulfate (MoRPHine SULFATE INJ) 2 mg Q4H PRN IV 01/02/17 09:30 01/16/17 09:29 01/05/17 08:01 2 MG Morphine Sulfate (MoRPHine SULFATE INJ) 4 mg Q4H PRN IV 01/02/17 09:30 01/16/17 09:29 01/06/17 20:56 4 MG Oxycodone HCl (Roxicodone Immediate Rel Tab) 10 mg Q6 PRN PO 01/02/17 09:30 01/16/17 09:29 01/09/17 18:10 10 MG Insulin Aspart (novoLOG ASPART) SLIDING SCALE PARAMETER ACHS SC 01/02/17 11:00 02/01/17 10:59 01/11/17 17:02 9 UNITS Insulin Glargine (Lantus Solostar Pen) 20 unit BID SC 01/02/17 21:00 02/01/17 20:59 01/11/17 09:37 20 UNIT Vancomycin HCl (Consult) 1 ea UD PRN N/A 01/02/17 10:00 02/01/17 09:59 Miconazole Nitrate (Desenex Powder) 1 appln DAILY EXT 01/03/17 09:00 02/02/17 08:59 01/11/17 09:35 1 APPLN Multi-Ingredient Ointment (Eucerin Unscented Cr) 1 appln DAILY EXT 01/03/17 09:00 02/02/17 08:59 01/11/17 09:35 1 APPLN Glucose (Glucose 40% Gel) 15-30 GRAMS 15 GRAMS... UD PRN PO 01/02/17 13:15 02/01/17 13:14 Glucose (Glucose Chew Tab) 4-8 Tablets 4 Tabl... UD PRN PO 01/02/17 13:15 02/01/17 13:14 Dextrose (Dextrose 50% 50ML Syringe) 25-50ML OF 50% DW IV FOR... UD PRN IV 01/02/17 13:15 02/01/17 13:14 Glucagon (Glucagon Inj) 1 mg UD PRN SQ 01/02/17 13:15 02/01/17 13:14 Guaifenesin 1200 mg 1,200 mg Q12 PO 01/04/17 21:00 02/03/17 20:59 01/11/17 09:33 1,200 MG Vancomycin HCl/ Sodium Chloride (Vancomycin Inj/ Nss 500ml) 530 ml @ 200 mls/hr DAILY@1200 IV 01/07/17 13:00 01/21/17 12:59 01/11/17 12:13 200 MLS/HR Albuterol/ Ipratropium (Duoneb) 3 ml Q4H PRN INH 01/09/17 04:30 02/08/17 04:29 Carvedilol (Coreg Tab) 3.125 mg BID PO 01/10/17 10:00 02/09/17 09:59 01/11/17 09:33 3.125 MG Furosemide (Lasix Tab) 40 mg BID17 PO 01/11/17 17:00 02/10/17 16:59 01/11/17 17:04 40 MG Prednisone (PredniSONE TAB) 20 mg TODAY@0700 PO 01/12/17 07:00 01/12/17 07:01 Objective Vital Signs Date Time Temp Pulse Resp B/P Pulse Ox O2 Delivery O2 Flow Rate FiO2 01/11/17 19:34 36.8 64 24 149/79 90 Room Air 01/11/17 18:18 79 24 95 Nasal Cannula 2.0 01/11/17 16:19 62 20 95 Nasal Cannula 2.0 01/11/17 16:00 96 Nasal Cannula 2.0 01/11/17 15:33 36.9 62 24 126/72 96 2.0 01/11/17 13:24 83 87 01/11/17 12:00 Nasal Cannula 2.0 01/11/17 11:58 62 20 95 Nasal Cannula 2.0 01/11/17 11:25 36.9 56 16 154/81 92 Room Air 01/11/17 08:00 Nasal Cannula 2.0 01/11/17 07:48 36.5 47 18 135/61 96 CPAP 2.0 01/11/17 04:00 Nasal Cannula 2.0 01/11/17 03:10 36.5 61 18 166/82 96 Nasal Cannula 2.0 01/11/17 00:00 Nasal Cannula 2.0 01/10/17 23:47 36.5 61 18 154/65 91 Room Air 01/10/17 20:30 Nasal Cannula 2.0 Physical Exam General Appearance: WD/WN, no apparent distress Eyes: normal inspection, sclerae normal ENT: normal ENT inspection, pharynx normal Neck: supple, no adenopathy, trachea midline Respiratory/Chest: chest non-tender, no respiratory distress, + rales, + wheezing Cardiovascular: no gallop, no murmur, + irregularly irregular Abdomen: normal bowel sounds, non tender, soft, no organomegaly Extremities: non-tender, no calf tenderness Neurologic/Psychiatric: alert, oriented x 3 Skin: normal color, no rash, + pertinent finding (left 2nd, 3rd toes unchanged) Lymphatic: no adenopathy Laboratory Results Last 24 Hours Test 01/10/17 20:29 01/10/17 23:41 01/11/17 06:12 01/11/17 06:26 Bedside Glucose 255 mg/dl 232 mg/dl 254 mg/dl White Blood Count 19.29 K/uL Red Blood Count 3.09 M/uL Hemoglobin 9.2 g/dL Hematocrit 29.0 % Mean Corpuscular Volume 93.9 fL Mean Corpuscular Hemoglobin 29.8 pg Mean Corpuscular Hemoglobin Concent 31.7 g/dl RDW Standard Deviation 55.0 fL RDW Coefficient of Variation 15.9 % Platelet Count 472 K/uL Mean Platelet Volume 8.7 fL Prothrombin Time 26.5 SECONDS Prothromb Time International Ratio 2.4 Sodium Level 142 mmol/L Potassium Level 6.1 mmol/L Chloride Level 111 mmol/L Carbon Dioxide Level 25 mmol/L Anion Gap 6.0 mmol/L Blood Urea Nitrogen 47 mg/dl Creatinine 1.50 mg/dl Est Creatinine Clear Calc Drug Dose 53.1 ml/min Estimated GFR () 49.9 Estimated GFR (Non- 43.0 BUN/Creatinine Ratio 31.5 Random Glucose 226 mg/dl Calcium Level 8.6 mg/dl Test 01/11/17 09:46 01/11/17 10:47 01/11/17 15:59 Potassium Level 5.4 mmol/L Bedside Glucose 252 mg/dl 268 mg/dl Assessment and Plan 81 yo male with MRSA sepsis likely from left foot and leg infection associated with DM with neuropathy and with CARLO. Vancomycin appropriate therapy for now, and given presence of osteomyelitis on x-ray, feel that patient likely will require 6 weeks of antibiotics. For amputation on Sunday.
[2017-01-12] VITALS (12 sets, daily range): BP systolic 110–145; BP diastolic 61–85; PULSE 48–62; TEMP 36.5–37; O2SAT 92–100
[2017-01-12] MEDS: LEVOTHYROXINE 100 MCG TAB PO SCH (05:36)
[2017-01-12 06:25] LABS: HEMATOCRIT 29.1 % (42-52); MEAN CELL VOLUME 93.9 fL (80-100); MEAN PLATELET VOLUME 8.5 fL (7.4-10.4); PLATELET COUNT 532 K/uL (130-400); WHITE BLOOD COUNT 23.33 K/uL (4.8-10.8)
[2017-01-12 07:00] LABS: BUN/CREATININE RATIO 34.6 (10-20); CALCIUM 8.4 mg/dl (8.5-10.1); CREATININE 1.6 mg/dl (0.60-1.40); POTASSIUM 4.4 mmol/L (3.5-5.1)
[2017-01-12] MEDS: INSULIN ASPART 100 UNITS/ML 3 ML PEN SC SCH ×4 (07:00→21:46)
[2017-01-12 07:09] LABS: ALB/GLOB RATIO 0.5 (0.9-2)
[2017-01-12 07:14] LABS: BASO ABS # 0.01 K/uL (0-0.2); COMPLETE YES; LYMPH % 7.2 %; LYMPH ABS # 1.68 K/uL (1.2-3.4); MONO % 3.1 %; NEUT % 88.7 %
[2017-01-12] MEDS: ALBUT/IPRATROP 3MG/0.5MG NEB 3 ML VIAL INH SCH ×4 (07:40→20:01)
[2017-01-12 08:09] LABS: INR 1.9 (0.9-1.1); PROTHROMBIN TIME (PATIENT) 20.7 SECONDS (9.0-12.0)
--- NOTE | 2017-01-12 08:21 | Progress Note ---
Subjective Date of Service: Jan 12, 2017. Subjective Pt evaluation today including: conversation w/ patient, physical exam, chart review Problem List Medical Problems: (1) Cellulitis of left lower extremity Status: Acute (2) Sepsis Status: Acute Medications Medications (Trade) Dose Ordered Sig/Sukhwinder Route Start Time Stop Time Status Last Admin Dose Admin Furosemide (Lasix Tab) 40 mg BID17 PO 01/11/17 17:00 02/10/17 16:59 01/11/17 17:04 40 MG Furosemide (Lasix Tab) 20 mg 1200 ONCE PO 01/11/17 12:00 01/11/17 12:01 DC 01/11/17 12:13 20 MG Phytonadione (Mephyton Tab) 2.5 mg NOW STAT PO 01/11/17 13:23 01/11/17 13:31 DC 01/11/17 14:25 2.5 MG Objective Vital Signs Date Time Temp Pulse Resp B/P Pulse Ox O2 Delivery O2 Flow Rate FiO2 01/12/17 07:21 36.7 50 20 145/72 100 CPAP 01/12/17 04:26 36.5 50 19 110/64 96 CPAP 01/12/17 04:00 96 CPAP 4.0 01/11/17 23:59 97 CPAP 4.0 01/11/17 23:41 36.4 47 18 125/94 97 BiPAP 01/11/17 20:00 CPAP 4.0 01/11/17 19:34 36.8 64 24 149/79 90 Room Air 01/11/17 18:18 79 24 95 Nasal Cannula 2.0 01/11/17 16:19 62 20 95 Nasal Cannula 2.0 01/11/17 16:00 96 Nasal Cannula 2.0 01/11/17 15:33 36.9 62 24 126/72 96 2.0 01/11/17 13:24 83 87 01/11/17 12:00 Nasal Cannula 2.0 01/11/17 11:58 62 20 95 Nasal Cannula 2.0 01/11/17 11:25 36.9 56 16 154/81 92 Room Air Physical Exam General Appearance: WD/WN Eyes: normal inspection ENT: normal ENT inspection Neck: supple, no adenopathy Respiratory/Chest: chest non-tender, + wheezing (improved) Cardiovascular: regular rate, rhythm, + systolic murmur Abdomen: normal bowel sounds, non tender, soft Extremities: + pedal edema Neurologic/Psychiatric: no motor/sensory deficits, alert, oriented x 3 Laboratory Results Last 24 Hours Test 01/11/17 09:46 01/11/17 10:47 01/11/17 15:59 01/11/17 20:01 Potassium Level 5.4 mmol/L Bedside Glucose 252 mg/dl 268 mg/dl 189 mg/dl Test 01/12/17 05:43 01/12/17 06:41 01/12/17 07:31 White Blood Count 23.33 K/uL Red Blood Count 3.10 M/uL Hemoglobin 9.3 g/dL Hematocrit 29.1 % Mean Corpuscular Volume 93.9 fL Mean Corpuscular Hemoglobin 30.0 pg Mean Corpuscular Hemoglobin Concent 32.0 g/dl Platelet Count 532 K/uL Mean Platelet Volume 8.5 fL Neutrophils (%) (Auto) 88.7 % Lymphocytes (%) (Auto) 7.2 % Monocytes (%) (Auto) 3.1 % Eosinophils (%) (Auto) 0.0 % Basophils (%) (Auto) 0.0 % Neutrophils # (Auto) 20.67 K/uL Lymphocytes # (Auto) 1.68 K/uL Monocytes # (Auto) 0.73 K/uL Eosinophils # (Auto) 0.00 K/uL Basophils # (Auto) 0.01 K/uL RDW Standard Deviation 54.8 fL RDW Coefficient of Variation 15.9 % Immature Granulocyte % (Auto) 1.0 % Immature Granulocyte # (Auto) 0.24 K/uL Red Blood Cell Morphology Unremarkable Sodium Level 144 mmol/L Potassium Level 4.4 mmol/L Chloride Level 112 mmol/L Carbon Dioxide Level 26 mmol/L Anion Gap 6.0 mmol/L Blood Urea Nitrogen 55 mg/dl Creatinine 1.60 mg/dl Est Creatinine Clear Calc Drug Dose 49.8 ml/min Estimated GFR () 46.1 Estimated GFR (Non- 39.8 BUN/Creatinine Ratio 34.6 Random Glucose 105 mg/dl Calcium Level 8.4 mg/dl Total Bilirubin 0.9 mg/dl Aspartate Amino Transf (AST/SGOT) 28 U/L Alanine Aminotransferase (ALT/SGPT) 29 U/L Alkaline Phosphatase 514 U/L Total Protein 6.7 gm/dl Albumin 2.3 gm/dl Globulin 4.4 gm/dl Albumin/Globulin Ratio 0.5 Bedside Glucose 111 mg/dl ECHOCARDIOGRAM REPORT [place] Patient: SUE MANCINI III Admit Date: 01/03/1704/18/17 Med Rec: [id number] Location: [facility] ID: [id number] Room/Bed: [facility] Date: 1935 Sex: M Report #: [id number] Age: 81 Test: Fam Phy: Winston Harper M.D. Waterproofer: Att Phy: Shakeel Tanner M.D. Diagnosis: SIRS Kalie Phy: Winston Harper M.D. Admit Phy: Shakeel Tanner M.D. Interpreting Phy: Colby Segundo M.D. Ordering Phy: CC: Shakeel Tanner M.D. Szymanski, Alexander W., MD Endcc: [~ rep ct labl] Page p: [~ rep prt dt last] [~ rep prt tm last] ECHOCARDIOGRAM RE[place] Patient: SUE MANCINI III Admit Date: 01/03/1704/18/17 Med Rec: [id number] Location: [facility] ID: [id number] Room/Bed: [facility] Date: 1935 Sex: M Report #: [id number] Age: 81 Test: Fam Phy: Winston Harper M.D. Waterproofer: Att Phy: Shakeel Tanner M.D. Diagnosis: SIRS Kalie Phy: Winston Harper M.D. Admit Phy: Shakeel Tanner M.D. Interpreting Phy: Colby Segundo M.D. Ordering Phy: CC: Shakeel Tanner M.D. Szymanski, Alexander W., MD Endcc: [~ rep ct labl] Page 1 p: [~ rep prt dt last] [~ rep prt tm last] *NOTICE TO RECEIVING DEMOCRAT AGENCY This information is strictly Confidential and protected under [place] law. [place] law prohibits you from making any further disclosure of this information unless further disclosure is expressly permitted by the written consent of the person to whom it pertains or is authorized by law. A general authorization for the release of medical or other information is not sufficient for this purpose. Hospital accepts no responsibility if the information is made available to any other person, INCLUDING THE PATIENT. Interpretation Summary * Name: SUE MANCINI III Study Date: 01/04/2017 09:46 AM BP: 95/ 52 mmHg * Patient Location: C.2T\S\S236\S\1 HR: 59 * : 1935 (M/d/yyyy) Gender: Male Height: 69 in * Age: 81 yrs Ethnicity: [place] Weight: 301 lb * Ordering Physician: Shakeel Tanner * Referring Physician: Self, Referred * Performed By: Hakeem Carrasquillo RCS * * Reason For Study: Eval for Endocarditis * BSA: 2.5 m2 * -- Conclusions -- * 1. Normal left ventricular size and systolic function. EF 55-60%. Inferior base appears hypo to akinetic. Mild concentric left ventricular hypertrophy. Septal flattening during diastole suggests right ventricular volume overload. * 2. Right ventricle not well visualized but appears dilated with reduced systolic function. * 3. Moderate biatrial dilation. * 4. 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 * 5. Elevated mitral velocity and mean gradient, suggesting no more than mild mitral stenosis. There is mild mitral regurgitation. * 6. Cannot rule out valvular vegetation. * 7. Severe pulmonary hypertension suggested with estimated right ventricular systolic pressure of 67 mmHg. * 8. Technically difficult study, enhanced with IV Definity. * 9. No prior study available for comparison. Procedure Details * A complete two-dimensional transthoracic echocardiogram was performed (2D, M- mode, Doppler and color flow Doppler). * The study was technically difficult. * There were technical limitations due to patient'sPoor acoustic windows secondary to severe lung disease. * A contrast injection of Definity was performed to improve assessment of LV function. * Contrast was injected into an intravenous site in the left arm. * One vial of Definity ultrasound contrast was diluted in normal saline to a total volume of 10 ml. A total of '2' ml of solution was administered during imaging. * Lot # [id number] of Definity utilized for procedure. * Expiration date . * The attending nurse who injected the contrast agent was Diya Napoles RN. Left Ventricle * Normal left ventricular size and systolic function. EF 55-60%. Inferior base appears hypo to akinetic. Mild concentric left ventricular hypertrophy. Septal flattening during diastole suggests right ventricular volume overload. Right Ventricle * Right ventricle not well visualized but appears dilated with reduced systolic function. * The right ventricular systolic function is reduced as assessed by tricuspid annular plane systolic excursion (TAPSE) (TAPSE <1.6 cm). Atria * The left atrium is moderately dilated. * The right atrium is moderately dilated. * There is no evidence of atrial septal defect, but resolution does not allow assessment for a patent foramen ovale. Mitral Valve * There is moderate mitral annular calcification. * Elevated mitral velocity and mean gradient, suggesting no more than mild mitral stenosis. * There is mild mitral regurgitation. Tricuspid Valve * The tricuspid valve is not well visualized. * There is no tricuspid stenosis. * Tricuspid regurgitant jet is not well visualized but appears to be at least mild tricuspid regurgitation. Aortic Valve * There is no significant aortic regurgitation. * Probable bioprosthetic aortic valve with acceptable velocities and gradients. Pulmonic Valve * The pulmonary valve is inadequately visualized, but the Doppler data is adequate for interpretation. * There is no pulmonic valvular stenosis. * Mild pulmonic valvular regurgitation. Great Vessels * The aortic root is not well visualized. Pericardium/Pleural * There is no pericardial effusion. Great Vessels * Dilated IVC with reduced inspiratory collapse. * * [~ rep ct add3]] MRI OF THE LEFT FOREFOOT NO CONTRAST CLINICAL HISTORY: Left third toe pain possible osteomyelitis. COMPARISON STUDY: No previous studies for comparison. FINDINGS: Imaging was performed in the sagittal, coronal, and axial planes. The study is significantly limited secondary to motion artifact. There is a soft tissue ulceration at the level of the dorsal aspect of the distal phalanx of the third toe. There is T1 and T2 marrow edema involving the distal phalanx of the third toe. There is a small amount of fluid present within the distal interphalangeal joint of third toe. The findings are indicative of osteomyelitis of the distal phalanx. There is diffuse dorsal soft tissue edema within the foot. IMPRESSION: 1. T1 and T2 marrow edema involving the distal phalanx of the third toe. There is an associated dorsal soft tissue ulceration. The findings are indicative of acute osteomyelitis. Electronically signed by: Chris Odonnell M.D. 01/08/2017 6:55 AM Dictated Date/Time: 01/08/2017 Assessment and Plan 81-year-old male here with SEPSIS from diabetic foot infection, ATN and acute on chronic renal failure and chronic respiratory failure with nocturnal hypoxia requiring CPAP at 11 cm. Sepsis from MRSA, vancomycin with pharmacy dosing, TTE performed and negative , and ID consult to recommend duration of antibiotics and likely choice( decision for PICC and outpt treatment will be after all 4 blood cultures are negative). MRI left foot done earlier this week shows osteomyelitis and hence will consult Ortho. Ortho input appreciated. Pt will need midline or PICC line for IV abx. Most recent blood cultures are negative. Will liase with ID regarding timing of midline or PICC line placement. s/p Bio AVR: TTE neg for endocarditis. Repeat blood cultures from january 08 negative so far Fungal infection, oral and panniculitis candidal-resolving Nystatin swish and swallow and topical Nystatin powder. Diabetic foot abrasions and likely portals of infection. wound care consultation providing topical care HTN: BP meds as per Renal. Losartan on hold as per Renal Hyperkalemia: Likely due to CKD. Low K diet. Kayexalate 30 grams given y.day. Improved serum potassium today Acute renal failure on CKD; improving and renal function now back to baseline. Dose of lasix increased to 40mg bid by Renal. Monitor renal fn closely. Hypoxia: Appreciate Pulmonary input for optimization of pulm status prior to surgery on Sunday. Will stop IV Solumedrol given volume status and as per Pulm recommendations (will start on prednisone orally with taper) A.fib: Was on coumadin and this has been held in anticipation of possible foot surgery. INR greater than 2.0 today. Received 2.5mg Vit K orally once yesterday. Will recheck INR today (results are pending) Pre op eval: Appreciate Renal and Pulmonary input. DM2. holding lispro 75/25 and converted to Lantus 20 b.i.d. with insulin sliding scale and pharmacy adjustment. DVT prevention warfarin. HE IS A FULL CODE.
[2017-01-12] MEDS: TAMSULOSIN HCL 0.4 MG CAP PO SCH (09:24)
[2017-01-12] MEDS: GUAIFENESIN 600 MG TABCR PO SCH ×2 (09:25→21:43)
[2017-01-12] MEDS: CARVEDILOL 3.125 MG TAB PO SCH ×2 (09:25→21:43)
[2017-01-12] MEDS: NYSTATIN SUSP 500,000 U/5 ML UDC PO SCH (09:26)
[2017-01-12] MEDS: FUROSEMIDE 40 MG TAB PO SCH ×2 (09:26→17:58)
[2017-01-12] MEDS: NYSTATIN POWDER 15GM BTL EXT SCH ×2 (09:27→21:42)
[2017-01-12] MEDS: EUCERIN CR 120 GM JAR EXT SCH (09:27)
[2017-01-12] MEDS: MICONAZOLE NITRATE POWDER 43 GM EXT SCH (09:27)
[2017-01-12] MEDS: INSULIN GLARGINE SOLOSTAR 100 UNITS/ML 3 ML PEN SC SCH ×2 (09:28→21:45)
[2017-01-12] MEDS ORDERED: VANCOMYCIN TROUGH SCH (11:30)
--- NOTE | 2017-01-12 11:52 | Progress Note ---
Progress Note Date of Service Jan 12, 2017. Progress Note I spoke to Dr. Castaneda (pulmonology) about this pt. He felt that the pt was in volume overload and was not optimized for the intended surgery. I shared this w/ Dr Samuel who agreed to delay the procedure.
--- NOTE | 2017-01-12 11:59 | Nephrology Progress Note ---
Nephrology Progress Note Date of Service Jan 12, 2017. Chief Complaint Follow-up for acute kidney injury with history of chronic kidney disease. Subjective Ernesto Was seen and examined in his room this morning. He was still wearing his CPAP. Denies shortness of breath, blood pressure well control and he continues to be net negative and responding to diuretics. He was a bit concerned as there was no clear decision about antibiotic or surgery and would like to know more specifically about the decision regarding surgery or discharged to home. Renal function remained stable, creatinine 1.7, other electrolyte acceptable. Review of Systems A complete review of systems was performed. Pertinent positives are noted above. All other systems are negative. Vital Signs Last 8 Hrs Date Time Temp Pulse Resp B/P Pulse Ox O2 Delivery O2 Flow Rate FiO2 01/12/17 11:46 36.6 50 20 120/61 99 CPAP 4.0 01/12/17 08:00 BiPAP 1.5 01/12/17 07:40 57 20 92 Room Air 01/12/17 07:21 36.7 50 20 145/72 100 CPAP 01/12/17 04:26 36.5 50 19 110/64 96 CPAP 01/12/17 04:00 96 CPAP 4.0 I & O 24-Hour Column 01/12/17 07:59 Intake Total 898 ml Output Total 1450 ml Balance -552 ml Last Recorded Weight Weight (Kilograms): 137.000 Physical Exam GENERAL: Elderly male, AAA x 3, pleasant, healthy-appearing, not in any distress. NECK: Supple, + JVD. RESPIRATORY: Normal breathing efforts, no accessory muscle use, occasional wheezing. No rales. CARDIOVASCULAR: S1, S2 normal, rate rhythm regular. EXTREMITY: trace B/L lower extremity edema NEURO: speech fluent. 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 Originally from [place]. [place]. 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 Never a smoker Laboratory Results Past 24 Hours 01/12/17 05:43 Red Blood Count 3.10, Mean Corpuscular Volume 93.9, Mean Corpuscular Hemoglobin 30.0, Mean Corpuscular Hemoglobin Concent 32.0, Mean Platelet Volume 8.5, Neutrophils (%) (Auto) 88.7, Lymphocytes (%) (Auto) 7.2, Monocytes (%) (Auto) 3.1, Eosinophils (%) (Auto) 0.0, Basophils (%) (Auto) 0.0, Neutrophils # (Auto) 20.67, Lymphocytes # (Auto) 1.68, Monocytes # (Auto) 0.73, Eosinophils # (Auto) 0.00, Basophils # (Auto) 0.01 01/12/17 05:43 Test 01/11/17 15:59 01/11/17 20:01 01/12/17 05:43 01/12/17 06:41 Bedside Glucose 268 mg/dl (70-99) 189 mg/dl (70-99) 111 mg/dl (70-99) White Blood Count 23.33 K/uL (4.8-10.8) Red Blood Count 3.10 M/uL (4.7-6.1) Hemoglobin 9.3 g/dL (14.0-18.0) Hematocrit 29.1 % (42-52) Mean Corpuscular Volume 93.9 fL (80-100) Mean Corpuscular Hemoglobin 30.0 pg (25-34) Mean Corpuscular Hemoglobin Concent 32.0 g/dl (32-36) Platelet Count 532 K/uL (130-400) Mean Platelet Volume 8.5 fL (7.4-10.4) Neutrophils (%) (Auto) 88.7 % Lymphocytes (%) (Auto) 7.2 % Monocytes (%) (Auto) 3.1 % Eosinophils (%) (Auto) 0.0 % Basophils (%) (Auto) 0.0 % Neutrophils # (Auto) 20.67 K/uL (1.4-6.5) Lymphocytes # (Auto) 1.68 K/uL (1.2-3.4) Monocytes # (Auto) 0.73 K/uL (0.11-0.59) Eosinophils # (Auto) 0.00 K/uL (0-0.5) Basophils # (Auto) 0.01 K/uL (0-0.2) RDW Standard Deviation 54.8 fL (36.4-46.3) RDW Coefficient of Variation 15.9 % (11.5-14.5) Immature Granulocyte % (Auto) 1.0 % Immature Granulocyte # (Auto) 0.24 K/uL (0.00-0.02) Red Blood Cell Morphology Unremarkable Anion Gap 6.0 mmol/L (3-11) Est Creatinine Clear Calc Drug Dose 49.8 ml/min Estimated GFR () 46.1 Estimated GFR (Non- 39.8 BUN/Creatinine Ratio 34.6 (10-20) Calcium Level 8.4 mg/dl (8.5-10.1) Total Bilirubin 0.9 mg/dl (0.2-1) Aspartate Amino Transf (AST/SGOT) 28 U/L (15-37) Alanine Aminotransferase (ALT/SGPT) 29 U/L (12-78) Alkaline Phosphatase 514 U/L (45-117) Total Protein 6.7 gm/dl (6.4-8.2) Albumin 2.3 gm/dl (3.4-5.0) Globulin 4.4 gm/dl (2.5-4.0) Albumin/Globulin Ratio 0.5 (0.9-2) Test 01/12/17 07:31 01/12/17 11:30 Prothrombin Time 20.7 SECONDS (9.0-12.0) Prothromb Time International Ratio 1.9 (0.9-1.1) Allergies Coded Allergies: Chlorpheniramine (Unverified Allergy, Unknown, ., 01/02/17) Phenylpropanolamine (Unverified Allergy, Unknown, ., 01/02/17) Medications Current Inpatient Medications Medications (Trade) Dose Ordered Sig/Sukhwinder Route Start Time Stop Time Status Last Admin Dose Admin Acetaminophen (Tylenol Tab) 650 mg Q4H PRN PO 01/02/17 09:30 02/01/17 09:29 Al Hydrox/Mg Hydrox/Simethicone (Maalox Max Susp) 15 ml Q4H PRN PO 01/02/17 09:30 02/01/17 09:29 Magnesium Hydroxide (Milk Of Magnesia Susp) 30 ml Q12H PRN PO 01/02/17 09:30 02/01/17 09:29 01/06/17 08:35 30 ML Ondansetron HCl (Zofran Inj) 4 mg Q6H PRN IV 01/02/17 09:30 02/01/17 09:29 Nitroglycerin (Nitrostat Tab) 0.4 mg UD PRN SL 01/02/17 09:30 02/01/17 09:29 Polyethylene (Miralax Powder Packet) 17 gm DAILY PRN PO 01/02/17 09:30 02/01/17 09:29 01/06/17 08:35 17 GM Albuterol/ Ipratropium (Duoneb) 3 ml QIDR INH 01/02/17 12:00 02/01/17 11:59 01/12/17 07:40 3 ML Levothyroxine Sodium (Synthroid Tab) 100 mcg DAILYBB PO 01/03/17 06:00 02/02/17 08:59 01/12/17 05:36 100 MCG Tamsulosin HCl (Flomax Cap) 0.4 mg DAILY PO 01/03/17 09:00 02/02/17 08:59 01/12/17 09:24 0.4 MG Nystatin (Mycostatin Powder) 1 appln BID EXT 01/02/17 21:00 02/01/17 20:59 01/12/17 09:27 1 APPLN Nystatin (Mycostatin Susp) 5 ml QID PO 01/02/17 13:00 01/12/17 12:59 01/12/17 09:26 5 ML Morphine Sulfate (MoRPHine SULFATE INJ) 2 mg Q4H PRN IV 01/02/17 09:30 01/16/17 09:29 01/05/17 08:01 2 MG Morphine Sulfate (MoRPHine SULFATE INJ) 4 mg Q4H PRN IV 01/02/17 09:30 01/16/17 09:29 01/06/17 20:56 4 MG Oxycodone HCl (Roxicodone Immediate Rel Tab) 10 mg Q6 PRN PO 01/02/17 09:30 01/16/17 09:29 01/09/17 18:10 10 MG Insulin Aspart (novoLOG ASPART) SLIDING SCALE PARAMETER ACHS SC 01/02/17 11:00 02/01/17 10:59 01/11/17 21:16 2 UNITS Insulin Glargine (Lantus Solostar Pen) 20 unit BID SC 01/02/17 21:00 02/01/17 20:59 01/12/17 09:28 20 UNIT Vancomycin HCl (Consult) 1 ea UD PRN N/A 01/02/17 10:00 02/01/17 09:59 Miconazole Nitrate (Desenex Powder) 1 appln DAILY EXT 01/03/17 09:00 02/02/17 08:59 01/12/17 09:27 1 APPLN Multi-Ingredient Ointment (Eucerin Unscented Cr) 1 appln DAILY EXT 01/03/17 09:00 02/02/17 08:59 01/12/17 09:27 1 APPLN Glucose (Glucose 40% Gel) 15-30 GRAMS 15 GRAMS... UD PRN PO 01/02/17 13:15 02/01/17 13:14 Glucose (Glucose Chew Tab) 4-8 Tablets 4 Tabl... UD PRN PO 01/02/17 13:15 02/01/17 13:14 Dextrose (Dextrose 50% 50ML Syringe) 25-50ML OF 50% DW IV FOR... UD PRN IV 01/02/17 13:15 02/01/17 13:14 Glucagon (Glucagon Inj) 1 mg UD PRN SQ 01/02/17 13:15 02/01/17 13:14 Guaifenesin 1200 mg 1,200 mg Q12 PO 01/04/17 21:00 02/03/17 20:59 01/12/17 09:25 1,200 MG Vancomycin HCl/ Sodium Chloride (Vancomycin Inj/ Nss 500ml) 530 ml @ 200 mls/hr DAILY@1200 IV 01/07/17 13:00 01/21/17 12:59 01/11/17 12:13 200 MLS/HR Albuterol/ Ipratropium (Duoneb) 3 ml Q4H PRN INH 01/09/17 04:30 02/08/17 04:29 Carvedilol (Coreg Tab) 3.125 mg BID PO 01/10/17 10:00 02/09/17 09:59 01/12/17 09:25 3.125 MG Furosemide (Lasix Tab) 40 mg BID17 PO 01/11/17 17:00 02/10/17 16:59 01/12/17 09:26 40 MG Impression (1) Acute kidney injury (2) Stage 3 chronic kidney disease (3) Cellulitis of left lower extremity (4) A-fib (5) Diabetes (6) Pulmonary hypertension Mr. Avery was admitted to the hospital with LLE cellulitis, SIRS, relative hypotension and acute on chronic kidney injury. He has underlying diabetic nephropathy. His baseline creatinine has been 2.0. Blood cultures are currently pending. Urinalysis is positive for blood due to rucker catheter. Proteinuria is present c/w diabetic nephropathy. Patient has been started on empiric IV Vanco & Zosyn therapy PMH - AODM, BMI > 40, HTN, hyperlipidemia, ASCVD s/p CABG w/ AVR, chronic atrial fibrillation, EVENS, gout, kidney stones and recurrent UTI. Renal function remained stable, creatinine has been staying around 1.6-1.7. Over last few days diuretics has been increased to optimize volume status, currently on 40 twice a day and has been net negative around 1 liter or more. Initial plan was to do toe amputation however pulmonology did not feel comfortable doing anesthesia and failed there is no emergency need and patient should be optimized before any kind of surgery with his prior history of complication after surgery. Currently tentative plan is to get the midline and discharge as to complete outpatient antibiotic and revisit the need for amputation. Recommendations -- acute kidney injury resolved, creatinine 1.7 at B/L -- change diet to low-potassium diet --carvedilol and continue to hold losartan due to hyperkalemia -- will continue on Lasix 40 twice a day -- discussed with the hospitalist, drop forge operator regarding goals of care and agree with discharging patient home with a midline and he will be able to get the antibiotic as an outpatient from his home. Will follow well in hospital but if patient gets discharged, old scheduled for follow-up with Dr. Dan as an outpatient next 2-3 weeks.
--- NOTE | 2017-01-12 13:45 | DIAGNOSTIC IMAGING REPORT ---
CHEST ONE VIEW PORTABLE CLINICAL HISTORY: right picc tip placement COMPARISON STUDY: 01/09/2017 FINDINGS: The heart is enlarged. Postsurgical changes involve the anterior chest wall. There is mild pulmonary vascular congestion. There has been interval placement right-sided PICC catheter. The tip extends cephalad into the right neck.[ There is no lobar consolidation IMPRESSION: 1. The recently placed right-sided PICC catheter, extends cephalad into the right internal jugular vein. The should be repositioned. Electronically signed by: Chris Odonnell M.D. 01/12/2017 1:44 PM Dictated Date/Time: 01/12/2017 1:25 PM
[2017-01-12] MEDS: VANCOMYCIN INJ 1,500 MG in SODIUM CHLORIDE 0.9% 500ML 500 ML IV SCH (15:41)
--- NOTE | 2017-01-12 15:44 | DIAGNOSTIC IMAGING REPORT ---
CHEST ONE VIEW PORTABLE CLINICAL HISTORY: left picc tip placement COMPARISON STUDY: 01/04/2017 FINDINGS: The heart remains enlarged. Postsurgical changes involve the anterior chest wall. There is persistent pulmonary vascular congestion. There is been interval removal of the right-sided PICC catheter. There is been placement of a left-sided PICC catheter. The tip is difficult to visualize but may extend to the level the right atrium. A repeat examination with greater technique is recommended to document the location of the catheter tip.[ IMPRESSION: 1. The right-sided PICC catheter has been removed 2. Interval placement of a left-sided PICC catheter 3. The tip of the catheter is difficult to visualize but may extend into the right atrium. A repeat examination with greater technique is recommended to document the location of the catheter tip Electronically signed by: Chris Odonnell M.D. 01/12/2017 3:42 PM Dictated Date/Time: 01/12/2017 3:40 PM
--- NOTE | 2017-01-12 16:21 | Pharmacy Progress Note ---
Pharmacy Antibiotic Prog Note Date of Service Jan 12, 2017. Subjective The patient is currently receiving Vancomycin 1,500mg IV every 24 hours. The patient is currently on day # 11 of vancomycin IV therapy. Objective Height (Feet): 5 Height (Inches): 9.00 Weight (Kilograms): 137.000 Levels: Item Value Date Time Vancomycin Level Trough 21.5 mcg/ml 01/12/17 1326 Micro Results: PATIENT: SUE MANCINI III LOC: [facility] U # : [id number] AGE/SX: 81/M ROOM: [facility] REG : 01/02/[address]: Shakeel Tanner M : 1935 BED: 1 DIS : STATUS: ADM IN TLOC: SPEC #: [id number] CHANTAL: 01/02/17 STATUS: COMP RE #: [id number] RECD: 01/02/[address]: Houston Luis M.D. SOURCE: BLOOD ENTR: 01/02/[address] [facility] [address]: Winston Harper M.D. [facility] ORDERED: BLOOD CULTURE COMMENTS: Comments to Plans Examiner SAME TIME DIFFERENT SITES Procedure Result Verified Site BLD CULT Final 01/08/17-0718 Organism 1 STAPHYLOCOCCUS AUREUS SENS SENSITIVITY TO FOLLOW SENSITIVITY RESULT INDICATES A METHICILLIN RESISTANT STAPH. AUREUS. PHONED TO RICHARD ALEXANDRA ON 01/04/17 AT 0815 BY Blanca Puentes. Results were verbalized back to GINA. RESULTS WERE ALSO CALLED TO [facility] INFECTION CONTROL ANSWERING MACHINE ON 01/04/17 BY GINA. Phoned Positive Blood Culture Gram Stain Report to CHRISTIANO EL on 01/02/17 At 0657 By SHARMAINE. Results were verbalized back to SHARMAINE. 1. STAPHYLOCOCCUS AUREUS Target Route Dose RX AB Cost M.I.C. IQ ------ ----- ------ -- ------ -------- - ------ TRIMET/SULFA S <=0.5/ 9.5 * OXACILLIN R * >2 VANCOMYCIN S 1 ERYTHROMYCIN R >4 TETRACYCLINE S <=4 CLINDAMYCIN R <=0.5 DAPTOMYCIN S <=0.5 RIFAMPIN S <=1 S = SENSITIVE I = INTERMEDIATE R = RESISTANT Assessment & Plan 81yo male receiving IV Vancomycin for MRSA sepsis secondary to diabetic foot infection with osteo. ATN and acute on chronic renal failure is complicating vancomycin dosing but trying to keep a Q24hr dosing schedule for easy transition to outpatient dosing for extended duration abx therapy. PICC line placed today. TTE performed and negative. VANCOMYCIN: * Trough level today is slightly supra-therapeutic at 21.5mcg/ml * Goal trough level is 15-20mcg/ml as recommended for osteo/bacteremia * Will lower dose slightly by 10% to keep Q24hr dosing interval for easy transition to outpatient dosing * Change to Vancomycin 1,350mg IV Q24hrs * Will re-order a vancomycin trough level in a few days or sooner if clinically warranted. Pharmacy will continue to follow and will adjust dose/frequency as necessary. Thank you
--- NOTE | 2017-01-12 16:44 | DIAGNOSTIC IMAGING REPORT ---
CHEST ONE VIEW PORTABLE CLINICAL HISTORY: Left PICC placement. COMPARISON STUDY: Radiograph January 12, 2017 3:44 PM. FINDINGS: The tip of the left PICC is partially obscured on this exam but better visualized. The catheter tip projects over the right atrium. The catheter could be drawn 3 cm. Cardiomegaly is noted. There are postsurgical findings. No evidence for pulmonary edema. There is no pneumothorax. IMPRESSION: Left PICC tip partially obscured but better visualized than on prior exam. Catheter tip likely projects over the right atrium. The catheter could be drawn 3 cm before obtaining a repeat radiograph. Electronically signed by: Maurizio Bowman M.D. 01/12/2017 4:43 PM Dictated Date/Time: 01/12/2017 4:41 PM
--- NOTE | 2017-01-12 17:58 | DIAGNOSTIC IMAGING REPORT ---
CHEST ONE VIEW PORTABLE CLINICAL HISTORY: left PICC tip placement COMPARISON STUDY: Chest radiograph January 12, 2017 at 4:16 PM FINDINGS: The left PICC tip is partially obscured but likely projects over the SVC. Cardiomegaly is unchanged. There is extensive hardware within the chest. There is no pneumothorax. IMPRESSION: Left PICC tip partially obscured but likely within the SVC. Electronically signed by: Maurizio Bowman M.D. 01/12/2017 5:56 PM Dictated Date/Time: 01/12/2017 5:55 PM
--- NOTE | 2017-01-12 20:56 | Infectious Disease Progress Nt ---
Progress Note Date of Service Jan 12, 2017. Subjective Pt evaluation today including: conversation w/ patient, physical exam, chart review, lab review, review of studies, conversation w/ web consultant, review of inpatient medication list foot surgery delayed because of fluid overload. States that he is somewhat less short of breath today. Remains afebrile. No other new complaints. All Other Systems: Reviewed and Negative Medications Current Inpatient Medications Medications (Trade) Dose Ordered Sig/Sukhwinder Route Start Time Stop Time Status Last Admin Dose Admin Acetaminophen (Tylenol Tab) 650 mg Q4H PRN PO 01/02/17 09:30 02/01/17 09:29 Al Hydrox/Mg Hydrox/Simethicone (Maalox Max Susp) 15 ml Q4H PRN PO 01/02/17 09:30 02/01/17 09:29 Magnesium Hydroxide (Milk Of Magnesia Susp) 30 ml Q12H PRN PO 01/02/17 09:30 02/01/17 09:29 01/06/17 08:35 30 ML Ondansetron HCl (Zofran Inj) 4 mg Q6H PRN IV 01/02/17 09:30 02/01/17 09:29 Nitroglycerin (Nitrostat Tab) 0.4 mg UD PRN SL 01/02/17 09:30 02/01/17 09:29 Polyethylene (Miralax Powder Packet) 17 gm DAILY PRN PO 01/02/17 09:30 02/01/17 09:29 01/06/17 08:35 17 GM Albuterol/ Ipratropium (Duoneb) 3 ml QIDR INH 01/02/17 12:00 02/01/17 11:59 01/12/17 20:01 3 ML Levothyroxine Sodium (Synthroid Tab) 100 mcg DAILYBB PO 01/03/17 06:00 02/02/17 08:59 01/12/17 05:36 100 MCG Tamsulosin HCl (Flomax Cap) 0.4 mg DAILY PO 01/03/17 09:00 02/02/17 08:59 01/12/17 09:24 0.4 MG Nystatin (Mycostatin Powder) 1 appln BID EXT 01/02/17 21:00 02/01/17 20:59 01/12/17 09:27 1 APPLN Morphine Sulfate (MoRPHine SULFATE INJ) 2 mg Q4H PRN IV 01/02/17 09:30 01/16/17 09:29 01/05/17 08:01 2 MG Morphine Sulfate (MoRPHine SULFATE INJ) 4 mg Q4H PRN IV 01/02/17 09:30 01/16/17 09:29 01/06/17 20:56 4 MG Oxycodone HCl (Roxicodone Immediate Rel Tab) 10 mg Q6 PRN PO 01/02/17 09:30 01/16/17 09:29 01/09/17 18:10 10 MG Insulin Aspart (novoLOG ASPART) SLIDING SCALE PARAMETER ACHS SC 01/02/17 11:00 02/01/17 10:59 01/12/17 17:57 7 UNITS Insulin Glargine (Lantus Solostar Pen) 20 unit BID SC 01/02/17 21:00 02/01/17 20:59 01/12/17 09:28 20 UNIT Vancomycin HCl (Consult) 1 ea UD PRN N/A 01/02/17 10:00 02/01/17 09:59 Miconazole Nitrate (Desenex Powder) 1 appln DAILY EXT 01/03/17 09:00 02/02/17 08:59 01/12/17 09:27 1 APPLN Multi-Ingredient Ointment (Eucerin Unscented Cr) 1 appln DAILY EXT 01/03/17 09:00 02/02/17 08:59 01/12/17 09:27 1 APPLN Glucose (Glucose 40% Gel) 15-30 GRAMS 15 GRAMS... UD PRN PO 01/02/17 13:15 02/01/17 13:14 Glucose (Glucose Chew Tab) 4-8 Tablets 4 Tabl... UD PRN PO 01/02/17 13:15 02/01/17 13:14 Dextrose (Dextrose 50% 50ML Syringe) 25-50ML OF 50% DW IV FOR... UD PRN IV 01/02/17 13:15 02/01/17 13:14 Glucagon (Glucagon Inj) 1 mg UD PRN SQ 01/02/17 13:15 02/01/17 13:14 Guaifenesin 1200 mg 1,200 mg Q12 PO 01/04/17 21:00 02/03/17 20:59 01/12/17 09:25 1,200 MG Vancomycin HCl/ Sodium Chloride (Vancomycin Inj/ Nss 500ml) 530 ml @ 200 mls/hr DAILY@1200 IV 01/07/17 13:00 01/12/17 23:59 01/12/17 15:41 200 MLS/HR Albuterol/ Ipratropium (Duoneb) 3 ml Q4H PRN INH 01/09/17 04:30 02/08/17 04:29 Carvedilol (Coreg Tab) 3.125 mg BID PO 01/10/17 10:00 02/09/17 09:59 01/12/17 09:25 3.125 MG Furosemide 40 mg 40 mg BID17 PO 01/11/17 17:00 02/10/17 16:59 01/12/17 17:58 40 MG Vancomycin HCl/ Sodium Chloride (Vancomycin Inj/ Nss 250ml) 277 ml @ 125 mls/hr DAILY@1200 IV 01/13/17 12:00 01/27/17 11:59 Objective Vital Signs Date Time Temp Pulse Resp B/P Pulse Ox O2 Delivery O2 Flow Rate FiO2 01/12/17 20:01 58 20 98 BiPAP/CPAP 4.0 01/12/17 20:00 CPAP 1.5 01/12/17 19:42 36.7 55 16 138/68 99 CPAP 01/12/17 16:34 36.6 61 24 123/73 98 CPAP 01/12/17 16:17 52 20 98 BiPAP/CPAP 4.0 01/12/17 16:00 BiPAP 1.5 01/12/17 12:00 BiPAP 1.5 01/12/17 11:46 36.6 50 20 120/61 99 CPAP 4.0 01/12/17 11:22 48 20 94 BiPAP/CPAP 4.0 01/12/17 08:00 BiPAP 1.5 01/12/17 07:40 57 20 92 Room Air 01/12/17 07:21 36.7 50 20 145/72 100 CPAP 01/12/17 04:26 36.5 50 19 110/64 96 CPAP 01/12/17 04:00 96 CPAP 4.0 01/11/17 23:59 97 CPAP 4.0 01/11/17 23:41 36.4 47 18 125/94 97 BiPAP Physical Exam General Appearance: WD/WN, no apparent distress Eyes: normal inspection, EOMI, sclerae normal ENT: normal ENT inspection, pharynx normal Neck: supple, no adenopathy, trachea midline Respiratory/Chest: chest non-tender, no respiratory distress, no accessory muscle use, + rales Cardiovascular: no gallop, no murmur, + irregularly irregular Abdomen: normal bowel sounds, non tender, soft, no organomegaly Extremities: non-tender, no calf tenderness Neurologic/Psychiatric: no motor/sensory deficits, oriented x 3 Skin: normal color, no rash, + pertinent finding ( Left 2nd and 3rd toes unchanged) Lymphatic: no adenopathy Laboratory Results Last 24 Hours Test 01/12/17 05:43 01/12/17 06:41 01/12/17 07:31 01/12/17 11:27 White Blood Count 23.33 K/uL Red Blood Count 3.10 M/uL Hemoglobin 9.3 g/dL Hematocrit 29.1 % Mean Corpuscular Volume 93.9 fL Mean Corpuscular Hemoglobin 30.0 pg Mean Corpuscular Hemoglobin Concent 32.0 g/dl Platelet Count 532 K/uL Mean Platelet Volume 8.5 fL Neutrophils (%) (Auto) 88.7 % Lymphocytes (%) (Auto) 7.2 % Monocytes (%) (Auto) 3.1 % Eosinophils (%) (Auto) 0.0 % Basophils (%) (Auto) 0.0 % Neutrophils # (Auto) 20.67 K/uL Lymphocytes # (Auto) 1.68 K/uL Monocytes # (Auto) 0.73 K/uL Eosinophils # (Auto) 0.00 K/uL Basophils # (Auto) 0.01 K/uL RDW Standard Deviation 54.8 fL RDW Coefficient of Variation 15.9 % Immature Granulocyte % (Auto) 1.0 % Immature Granulocyte # (Auto) 0.24 K/uL Red Blood Cell Morphology Unremarkable Sodium Level 144 mmol/L Potassium Level 4.4 mmol/L Chloride Level 112 mmol/L Carbon Dioxide Level 26 mmol/L Anion Gap 6.0 mmol/L Blood Urea Nitrogen 55 mg/dl Creatinine 1.60 mg/dl Est Creatinine Clear Calc Drug Dose 49.8 ml/min Estimated GFR () 46.1 Estimated GFR (Non- 39.8 BUN/Creatinine Ratio 34.6 Random Glucose 105 mg/dl Calcium Level 8.4 mg/dl Total Bilirubin 0.9 mg/dl Aspartate Amino Transf (AST/SGOT) 28 U/L Alanine Aminotransferase (ALT/SGPT) 29 U/L Alkaline Phosphatase 514 U/L Total Protein 6.7 gm/dl Albumin 2.3 gm/dl Globulin 4.4 gm/dl Albumin/Globulin Ratio 0.5 Bedside Glucose 111 mg/dl 109 mg/dl Prothrombin Time 20.7 SECONDS Prothromb Time International Ratio 1.9 Test 01/12/17 13:26 01/12/17 16:43 Vancomycin Level Trough 21.5 mcg/ml Bedside Glucose 173 mg/dl Assessment and Plan 81 yo male with MRSA sepsis likely from left foot and leg infection associated with DM with neuropathy and with CARLO. Vancomycin appropriate therapy for now, and given presence of osteomyelitis on x-ray, feel that patient likely will require 6 weeks of antibiotics. To continue IV Abx pending operative intervention.
[2017-01-13] VITALS (12 sets, daily range): BP systolic 119–171; BP diastolic 50–84; PULSE 48–65; TEMP 36.5–37.1; O2SAT 90–100
[2017-01-13] MEDS: LEVOTHYROXINE 100 MCG TAB PO SCH (06:11)
[2017-01-13 07:16] LABS: BASO % 0.1 %; BASO ABS # 0.01 K/uL (0-0.2); COMPLETE YES; EOS % 0.1 %; IG% 0.9 %; LYMPH % 4.6 %; LYMPH ABS # 0.78 K/uL (1.2-3.4); MEAN CELL VOLUME 94.3 fL (80-100); MEAN CORPUSCULAR HEMOGLOBIN 30.5 pg (25-34); MEAN CORPUSCULAR HGB CONC 32.3 g/dl (32-36); MEAN PLATELET VOLUME 8.7 fL (7.4-10.4); MONO % 7.9 %; NEUT % 86.4 %; PLATELET COUNT 501 K/uL (130-400); RED BLOOD COUNT 3.18 M/uL (4.7-6.1); WHITE BLOOD COUNT 16.88 K/uL (4.8-10.8)
[2017-01-13] MEDS: ALBUT/IPRATROP 3MG/0.5MG NEB 3 ML VIAL INH SCH ×4 (07:17→20:10)
[2017-01-13 07:26] LABS: INR 1.7 (0.9-1.1); PROTHROMBIN TIME (PATIENT) 18.1 SECONDS (9.0-12.0)
[2017-01-13 07:48] LABS: BUN/CREATININE RATIO 38.2 (10-20); CALCIUM 8.4 mg/dl (8.5-10.1); CREATININE 1.5 mg/dl (0.60-1.40); POTASSIUM 4.3 mmol/L (3.5-5.1)
[2017-01-13 07:51] LABS: ALB/GLOB RATIO 0.5 (0.9-2)
[2017-01-13] MEDS: EUCERIN CR 120 GM JAR EXT SCH (07:52)
[2017-01-13] MEDS: NYSTATIN POWDER 15GM BTL EXT SCH ×2 (07:52→19:47)
[2017-01-13] MEDS: MICONAZOLE NITRATE POWDER 43 GM EXT SCH (07:52)
[2017-01-13] MEDS: FUROSEMIDE 40 MG TAB PO SCH ×2 (07:53→17:47)
[2017-01-13] MEDS: CARVEDILOL 3.125 MG TAB PO SCH (07:53)
[2017-01-13] MEDS: TAMSULOSIN HCL 0.4 MG CAP PO SCH (07:53)
[2017-01-13] MEDS: GUAIFENESIN 600 MG TABCR PO SCH ×2 (07:54→19:47)
[2017-01-13] MEDS: INSULIN ASPART 100 UNITS/ML 3 ML PEN SC SCH ×4 (08:10→20:36)
[2017-01-13] MEDS: INSULIN GLARGINE SOLOSTAR 100 UNITS/ML 3 ML PEN SC SCH ×2 (08:11→20:38)
[2017-01-13] MEDS: ACETAMINOPHEN 325 MG TAB PO PRN ×2 (08:14→19:46)
--- NOTE | 2017-01-13 08:48 | ORTHOPEDICS PROGRESS NOTE ---
DATE: 01/13/2017 CHIEF COMPLAINT: Left foot osteomyelitis. DISCUSSION: The patient's surgery was canceled yesterday due to pulmonary overload. He was intended for amputation of the toe and it is not optimized at this time. Please advise us when the patient is stable for surgery and we will rearrange with Dr. Samuel.
--- NOTE | 2017-01-13 11:24 | Hospitalist Progress Note ---
Hospitalist Progress Note Date of Service Jan 13, 2017. (Shadi Galan PA-C) Subjective Pt evaluation today including: conversation w/ patient, physical exam, chart review, lab review, conversation w/ healthcare network consultant Pain: None Voiding: rucker catheter in place (with cloudy urine - no hematuria) Is an 81-year-old male admitted with osteomyelitis of the left third toe. He was scheduled for surgery for amputation but developed acute pulmonary edema. Surgery was delayed for medical optimization. Patient seen this morning and his shortness of breath and pulmonary edema has improved. However the patient is now having second thoughts about amputation and would prefer to treat medically with IV antibiotics and watch closely. He currently denies fever or chills. He has no rigors. He denies sweats. Pain is generally controlled. He is sitting in bedside chair at the time my examination and is alert and oriented 3 and able to give me a full and accurate history. He has no other acute complaints at this time. Additional Comments: A total of 12 systems was reviewed and is negative other than as listed above in the HPI All Other Systems: Reviewed and Negative (Shadi Galan PA-C) Medications Current Inpatient Medications Medications (Trade) Dose Ordered Sig/Sukhwinder Route Start Time Stop Time Status Last Admin Dose Admin Acetaminophen (Tylenol Tab) 650 mg Q4H PRN PO 01/02/17 09:30 02/01/17 09:29 01/13/17 19:46 650 MG Al Hydrox/Mg Hydrox/Simethicone (Maalox Max Susp) 15 ml Q4H PRN PO 01/02/17 09:30 02/01/17 09:29 Magnesium Hydroxide (Milk Of Magnesia Susp) 30 ml Q12H PRN PO 01/02/17 09:30 02/01/17 09:29 01/06/17 08:35 30 ML Ondansetron HCl (Zofran Inj) 4 mg Q6H PRN IV 01/02/17 09:30 02/01/17 09:29 Nitroglycerin (Nitrostat Tab) 0.4 mg UD PRN SL 01/02/17 09:30 02/01/17 09:29 Polyethylene (Miralax Powder Packet) 17 gm DAILY PRN PO 01/02/17 09:30 02/01/17 09:29 01/06/17 08:35 17 GM Albuterol/ Ipratropium (Duoneb) 3 ml QIDR INH 01/02/17 12:00 02/01/17 11:59 01/13/17 20:10 3 ML Levothyroxine Sodium (Synthroid Tab) 100 mcg DAILYBB PO 01/03/17 06:00 02/02/17 08:59 01/13/17 06:11 100 MCG Tamsulosin HCl (Flomax Cap) 0.4 mg DAILY PO 01/03/17 09:00 02/02/17 08:59 01/13/17 07:53 0.4 MG Nystatin (Mycostatin Powder) 1 appln BID EXT 01/02/17 21:00 02/01/17 20:59 01/13/17 19:47 1 APPLN Morphine Sulfate (MoRPHine SULFATE INJ) 2 mg Q4H PRN IV 01/02/17 09:30 01/16/17 09:29 01/05/17 08:01 2 MG Morphine Sulfate (MoRPHine SULFATE INJ) 4 mg Q4H PRN IV 01/02/17 09:30 01/16/17 09:29 01/06/17 20:56 4 MG Oxycodone HCl (Roxicodone Immediate Rel Tab) 10 mg Q6 PRN PO 01/02/17 09:30 01/16/17 09:29 01/09/17 18:10 10 MG Insulin Aspart (novoLOG ASPART) SLIDING SCALE PARAMETER ACHS SC 01/02/17 11:00 02/01/17 10:59 01/13/17 17:49 7 UNITS Insulin Glargine (Lantus Solostar Pen) 20 unit BID SC 01/02/17 21:00 02/01/17 20:59 01/13/17 08:11 20 UNIT Vancomycin HCl (Consult) 1 ea UD PRN N/A 01/02/17 10:00 02/01/17 09:59 Miconazole Nitrate (Desenex Powder) 1 appln DAILY EXT 01/03/17 09:00 02/02/17 08:59 01/13/17 07:52 1 APPLN Multi-Ingredient Ointment (Eucerin Unscented Cr) 1 appln DAILY EXT 01/03/17 09:00 02/02/17 08:59 01/13/17 07:52 1 APPLN Glucose (Glucose 40% Gel) 15-30 GRAMS 15 GRAMS... UD PRN PO 01/02/17 13:15 02/01/17 13:14 Glucose (Glucose Chew Tab) 4-8 Tablets 4 Tabl... UD PRN PO 01/02/17 13:15 02/01/17 13:14 Dextrose (Dextrose 50% 50ML Syringe) 25-50ML OF 50% DW IV FOR... UD PRN IV 01/02/17 13:15 02/01/17 13:14 Glucagon (Glucagon Inj) 1 mg UD PRN SQ 01/02/17 13:15 02/01/17 13:14 Guaifenesin (Mucinex Contr Rel Tab) 1,200 mg Q12 PO 01/04/17 21:00 02/03/17 20:59 01/13/17 19:47 1,200 MG Albuterol/ Ipratropium (Duoneb) 3 ml Q4H PRN INH 01/09/17 04:30 02/08/17 04:29 Carvedilol (Coreg Tab) 3.125 mg BID PO 01/10/17 10:00 02/09/17 09:59 Future Hold 01/12/17 21:43 3.125 MG Furosemide 40 mg 40 mg BID17 PO 01/11/17 17:00 02/10/17 16:59 01/13/17 17:47 40 MG Vancomycin HCl/ Sodium Chloride (Vancomycin Inj/ Nss 250ml) 277 ml @ 125 mls/hr DAILY@1200 IV 01/13/17 12:00 01/27/17 11:59 01/13/17 12:34 125 MLS/HR (Shadi Galan PA-C) Objective Vital Signs Date Time Temp Pulse Resp B/P Pulse Ox O2 Delivery O2 Flow Rate FiO2 01/13/17 08:00 Nasal Cannula 2.0 CPAP 01/13/17 07:45 36.6 52 16 148/72 94 CPAP 01/13/17 07:17 52 20 99 BiPAP/CPAP 4.0 01/13/17 04:00 CPAP 1.5 01/13/17 03:53 37.1 58 20 171/52 91 01/13/17 00:00 CPAP 1.5 01/12/17 23:59 37.0 62 20 115/85 94 CPAP 01/12/17 20:01 58 20 98 BiPAP/CPAP 4.0 01/12/17 20:00 CPAP 1.5 01/12/17 19:42 36.7 55 16 138/68 99 CPAP 01/12/17 16:34 36.6 61 24 123/73 98 CPAP 01/12/17 16:17 52 20 98 BiPAP/CPAP 4.0 01/12/17 16:00 BiPAP 1.5 01/12/17 12:00 BiPAP 1.5 01/12/17 11:46 36.6 50 20 120/61 99 CPAP 4.0 01/12/17 11:22 48 20 94 BiPAP/CPAP 4.0 (Shadi Galan PA-C) Physical Exam Notes: GENERAL : No acute distress. Sitting in bedside chair. Pleasant EYES: No icterus, gaze conjugate NOSE: No evidence of epistaxis MOUTH: No lesions or candidiasis NECK: Supple LUNGS: No rales or rhonchi. Some minimal scattered wheezes noted. HEART: Regular, rate controlled ABDOMEN: Soft, NT, ND, BS Present EXTREMITIES: +2 bilateral LE edema, pedal pulses intact. Dressing dry and intact to left foot NEURO: A&OX3 (Shadi Galan PA-C) Laboratory Results Last 24 Hours Test 01/12/17 11:27 01/12/17 13:26 01/12/17 16:43 01/12/17 20:17 Bedside Glucose 109 mg/dl 173 mg/dl 209 mg/dl Vancomycin Level Trough 21.5 mcg/ml Test 01/13/17 06:46 01/13/17 06:56 White Blood Count 16.88 K/uL Red Blood Count 3.18 M/uL Hemoglobin 9.7 g/dL Hematocrit 30.0 % Mean Corpuscular Volume 94.3 fL Mean Corpuscular Hemoglobin 30.5 pg Mean Corpuscular Hemoglobin Concent 32.3 g/dl Platelet Count 501 K/uL Mean Platelet Volume 8.7 fL Neutrophils (%) (Auto) 86.4 % Lymphocytes (%) (Auto) 4.6 % Monocytes (%) (Auto) 7.9 % Eosinophils (%) (Auto) 0.1 % Basophils (%) (Auto) 0.1 % Neutrophils # (Auto) 14.58 K/uL Lymphocytes # (Auto) 0.78 K/uL Monocytes # (Auto) 1.34 K/uL Eosinophils # (Auto) 0.02 K/uL Basophils # (Auto) 0.01 K/uL RDW Standard Deviation 54.4 fL RDW Coefficient of Variation 15.7 % Immature Granulocyte % (Auto) 0.9 % Immature Granulocyte # (Auto) 0.15 K/uL Prothrombin Time 18.1 SECONDS Prothromb Time International Ratio 1.7 Sodium Level 144 mmol/L Potassium Level 4.3 mmol/L Chloride Level 110 mmol/L Carbon Dioxide Level 26 mmol/L Anion Gap 8.0 mmol/L Blood Urea Nitrogen 57 mg/dl Creatinine 1.50 mg/dl Est Creatinine Clear Calc Drug Dose 52.0 ml/min Estimated GFR () 49.9 Estimated GFR (Non- 43.0 BUN/Creatinine Ratio 38.2 Random Glucose 82 mg/dl Calcium Level 8.4 mg/dl Total Bilirubin 1.0 mg/dl Aspartate Amino Transf (AST/SGOT) 25 U/L Alanine Aminotransferase (ALT/SGPT) 28 U/L Alkaline Phosphatase 491 U/L Total Protein 7.1 gm/dl Albumin 2.4 gm/dl Globulin 4.7 gm/dl Albumin/Globulin Ratio 0.5 Bedside Glucose 79 mg/dl (Shadi Galan PA-C) Diagnostic Results MRI OF THE LEFT FOREFOOT NO CONTRAST CLINICAL HISTORY: Left third toe pain possible osteomyelitis. COMPARISON STUDY: No previous studies for comparison. FINDINGS: Imaging was performed in the sagittal, coronal, and axial planes. The study is significantly limited secondary to motion artifact. There is a soft tissue ulceration at the level of the dorsal aspect of the distal phalanx of the third toe. There is T1 and T2 marrow edema involving the distal phalanx of the third toe. There is a small amount of fluid present within the distal interphalangeal joint of third toe. The findings are indicative of osteomyelitis of the distal phalanx. There is diffuse dorsal soft tissue edema within the foot. IMPRESSION: 1. T1 and T2 marrow edema involving the distal phalanx of the third toe. There is an associated dorsal soft tissue ulceration. The findings are indicative of acute osteomyelitis. Electronically signed by: Chris Odonnell M.D. 01/08/2017 6:55 AM Dictated Date/Time: 01/08/2017 6:50 AM (Shadi Galan PA-C) Assessment and Plan OSTEOMYELITIS LEFT 3rd TOE Ortho on board - suggests amputation when medically stable Patient defers on amputation at this time and prefers to closely monitor and follow clinically Initial blood cultures with MRSA Repeat BCs X 2 negative for growth PICC line placed in left upper arm 01/12/2017 ID consulted - appreciate Dr. Rabago's input - suggests IV abx for at least 6 weeks BRADYCARDIA Hold carvedilol at this time Continue to monitor on telemetry Positive telemetry yesterday Patient asymptomatic ACUTE KIDNEY INJURY Nephrology consulted appreciate Dr. Dan's input Baseline creatinine 1.6-2.0 Currently with good urine output via Rucker Follow serial labs CAD S/P CABG, AVR Bradycardic - hold carvidolol and follow on telemetry TTE negative for endocarditis No chest pain [place] Continue patient's home CPAP at 11 cm H2O ATRIAL FIBRILLATION Coumadin held for possible surgery Will bridge with Enoxaparin Currently in NSR and rate controlled DVT PROPHYLAXIS Enoxaparin Thank you for including us in the care of this patient. Please refer to Dr. Gibson's addendum for further recommendations Continued [facility] stay due to: other (IV antibiotics with possible surgical amputation) Discharge planning: uncertain (Shadi Galan PA-C) Attending Attestation Note: Pt seen/examined, chart reviewed, care plan d/w PA Shadi Galan. I agree w/ the tovar components of his documentation. Pt w/o complaints today. Tele overnight with multiple episodes of bradycardia - some into the 30s - and one 4 second pause. Not wanting surgery right now; wants conservative Rx with IV abx via PICC. VSS afebrile net neg -2.3 L overnight gen - nad mouth - no thrush neck - no JVD sitting at 90 degrees heart - irregular lungs - rales bases, course BS b/l, no increased wob abd - soft ext - 2+ pitting edema b/l skin - LUE PICC clean; dressing removed left 3rd toe - ulceration present but clean; mild erythema present tip of toe labs - Cr 1.5 A/P: 1. MRSA septicemia/bacteremia - improved. 2. left 3rd toe infection with osteomyelitis - presumably due to MRSA. Pt now deferring on surgery/partial amp - preferring conservative Rx with 6-week course of IV abx therapy. 3. acute kidney injury - improved. 4. bradycardia in setting of a. fib on beta jorge a - hold beta jorge a. Check TSH in am. 5. hypothyroidism - check TSH am. 6. acute/chronic diastolic CHF / cor pulmonale - continue lasix 40mg BID. 7. severe pulmonary HTN on chronic NC O2. 8. chronic resp failure 2nd to #7 - stable. dispo - pt desiring [facility] leave on tele another 24 hours due to #4 Clay Gibson MD (Clay Gibson MD)
[2017-01-13] MEDS ORDERED: NURSING VERBAL MED ORDER ONE ×2 (11:30→12:15)
[2017-01-13] MEDS: VANCOMYCIN INJ 1,350 MG in SODIUM CHLORIDE 0.9% 250ML 250 ML IV SCH (12:34)
--- NOTE | 2017-01-13 15:10 | Nephrology Progress Note ---
Nephrology Progress Note Date of Service Jan 13, 2017. Chief Complaint CARLO/CKD Subjective No acute events overnight. Mr. Avery was seen and evaluated this morning in his hospital room. He had no acute complaints. The plan of care was discussed with Shadi Galan PA-C. Chad continues to struggle with the idea of having surgery. He would like to continue to defer an operation and has been considering not undergoing surgical intervention. Overall, he feels well. He would very much like to return home. He admits to some deconditioning but fears too much time away from home. He denies fevers or chills. Appetite is good. Activity tolerance reduced. Mckeon remains intact. He denies a cough. He has not chest pain or palpitations. Review of Systems A complete review of systems was performed. Pertinent positives are noted above. All other systems are negative. Vital Signs Last 8 Hrs Date Time Temp Pulse Resp B/P Pulse Ox O2 Delivery O2 Flow Rate FiO2 01/13/17 12:00 Nasal Cannula 2.0 CPAP 01/13/17 11:26 36.8 48 18 137/84 99 2.0 01/13/17 11:20 49 20 100 Nasal Cannula 4.0 01/13/17 08:00 Nasal Cannula 2.0 CPAP 01/13/17 07:45 36.6 52 16 148/72 94 CPAP 01/13/17 07:17 52 20 99 BiPAP/CPAP 4.0 I & O 24-Hour Column 01/13/17 07:59 Intake Total 480 ml Output Total 3000 ml Balance -2520 ml Last Recorded Weight Weight (Kilograms): 131.800 Physical Exam General Appearance: no apparent distress, + obese Head: normocephalic, atraumatic Eyes: normal inspection, sclerae normal ENT: normal ENT inspection, pharynx normal Neck: supple, + JVD Respiratory/Chest: lungs clear, + decreased breath sounds, + rales Cardiovascular: regular rate, rhythm, no gallop Abdomen/GI: non tender, soft Genitourinary - Male: + pertinent finding (Mckeon draining dark yellow urine) Extremities/Musculoskelatal: no pedal edema Neurologic/Psych: alert, oriented x 3 Family History Negative for CKD / ESRD Social History Marital Status: Occupation: retired Retired. Originally from [place] 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 Never a smoker Laboratory Results Past 24 Hours 01/13/17 06:46 Red Blood Count 3.18, Mean Corpuscular Volume 94.3, Mean Corpuscular Hemoglobin 30.5, Mean Corpuscular Hemoglobin Concent 32.3, Mean Platelet Volume 8.7, Neutrophils (%) (Auto) 86.4, Lymphocytes (%) (Auto) 4.6, Monocytes (%) (Auto) 7.9, Eosinophils (%) (Auto) 0.1, Basophils (%) (Auto) 0.1, Neutrophils # (Auto) 14.58, Lymphocytes # (Auto) 0.78, Monocytes # (Auto) 1.34, Eosinophils # (Auto) 0.02, Basophils # (Auto) 0.01 01/13/17 06:46 Test 01/12/17 16:43 01/12/17 20:17 01/13/17 06:46 01/13/17 06:56 Bedside Glucose 173 mg/dl (70-99) 209 mg/dl (70-99) 79 mg/dl (70-99) White Blood Count 16.88 K/uL (4.8-10.8) Red Blood Count 3.18 M/uL (4.7-6.1) Hemoglobin 9.7 g/dL (14.0-18.0) Hematocrit 30.0 % (42-52) Mean Corpuscular Volume 94.3 fL (80-100) Mean Corpuscular Hemoglobin 30.5 pg (25-34) Mean Corpuscular Hemoglobin Concent 32.3 g/dl (32-36) Platelet Count 501 K/uL (130-400) Mean Platelet Volume 8.7 fL (7.4-10.4) Neutrophils (%) (Auto) 86.4 % Lymphocytes (%) (Auto) 4.6 % Monocytes (%) (Auto) 7.9 % Eosinophils (%) (Auto) 0.1 % Basophils (%) (Auto) 0.1 % Neutrophils # (Auto) 14.58 K/uL (1.4-6.5) Lymphocytes # (Auto) 0.78 K/uL (1.2-3.4) Monocytes # (Auto) 1.34 K/uL (0.11-0.59) Eosinophils # (Auto) 0.02 K/uL (0-0.5) Basophils # (Auto) 0.01 K/uL (0-0.2) RDW Standard Deviation 54.4 fL (36.4-46.3) RDW Coefficient of Variation 15.7 % (11.5-14.5) Immature Granulocyte % (Auto) 0.9 % Immature Granulocyte # (Auto) 0.15 K/uL (0.00-0.02) Prothrombin Time 18.1 SECONDS (9.0-12.0) Prothromb Time International Ratio 1.7 (0.9-1.1) Anion Gap 8.0 mmol/L (3-11) Est Creatinine Clear Calc Drug Dose 52.0 ml/min Estimated GFR () 49.9 Estimated GFR (Non- 43.0 BUN/Creatinine Ratio 38.2 (10-20) Calcium Level 8.4 mg/dl (8.5-10.1) Total Bilirubin 1.0 mg/dl (0.2-1) Aspartate Amino Transf (AST/SGOT) 25 U/L (15-37) Alanine Aminotransferase (ALT/SGPT) 28 U/L (12-78) Alkaline Phosphatase 491 U/L (45-117) Total Protein 7.1 gm/dl (6.4-8.2) Albumin 2.4 gm/dl (3.4-5.0) Globulin 4.7 gm/dl (2.5-4.0) Albumin/Globulin Ratio 0.5 (0.9-2) Test 01/13/17 11:16 Bedside Glucose 106 mg/dl (70-99) Allergies Coded Allergies: Chlorpheniramine (Unverified Allergy, Unknown, ., 01/02/17) Phenylpropanolamine (Unverified Allergy, Unknown, ., 01/02/17) Medications Current Inpatient Medications Medications (Trade) Dose Ordered Sig/Sukhwinder Route Start Time Stop Time Status Last Admin Dose Admin Acetaminophen (Tylenol Tab) 650 mg Q4H PRN PO 01/02/17 09:30 02/01/17 09:29 01/13/17 08:14 650 MG Al Hydrox/Mg Hydrox/Simethicone (Maalox Max Susp) 15 ml Q4H PRN PO 01/02/17 09:30 02/01/17 09:29 Magnesium Hydroxide (Milk Of Magnesia Susp) 30 ml Q12H PRN PO 01/02/17 09:30 02/01/17 09:29 01/06/17 08:35 30 ML Ondansetron HCl (Zofran Inj) 4 mg Q6H PRN IV 01/02/17 09:30 02/01/17 09:29 Nitroglycerin (Nitrostat Tab) 0.4 mg UD PRN SL 01/02/17 09:30 02/01/17 09:29 Polyethylene (Miralax Powder Packet) 17 gm DAILY PRN PO 01/02/17 09:30 02/01/17 09:29 01/06/17 08:35 17 GM Albuterol/ Ipratropium (Duoneb) 3 ml QIDR INH 01/02/17 12:00 02/01/17 11:59 01/13/17 11:17 3 ML Levothyroxine Sodium (Synthroid Tab) 100 mcg DAILYBB PO 01/03/17 06:00 02/02/17 08:59 01/13/17 06:11 100 MCG Tamsulosin HCl (Flomax Cap) 0.4 mg DAILY PO 01/03/17 09:00 02/02/17 08:59 01/13/17 07:53 0.4 MG Nystatin (Mycostatin Powder) 1 appln BID EXT 01/02/17 21:00 02/01/17 20:59 01/13/17 07:52 1 APPLN Morphine Sulfate (MoRPHine SULFATE INJ) 2 mg Q4H PRN IV 01/02/17 09:30 01/16/17 09:29 01/05/17 08:01 2 MG Morphine Sulfate (MoRPHine SULFATE INJ) 4 mg Q4H PRN IV 01/02/17 09:30 01/16/17 09:29 01/06/17 20:56 4 MG Oxycodone HCl (Roxicodone Immediate Rel Tab) 10 mg Q6 PRN PO 01/02/17 09:30 01/16/17 09:29 01/09/17 18:10 10 MG Insulin Aspart (novoLOG ASPART) SLIDING SCALE PARAMETER ACHS SC 01/02/17 11:00 02/01/17 10:59 01/13/17 12:34 6 UNITS Insulin Glargine (Lantus Solostar Pen) 20 unit BID SC 01/02/17 21:00 02/01/17 20:59 01/13/17 08:11 20 UNIT Vancomycin HCl (Consult) 1 ea UD PRN N/A 01/02/17 10:00 02/01/17 09:59 Miconazole Nitrate (Desenex Powder) 1 appln DAILY EXT 01/03/17 09:00 02/02/17 08:59 01/13/17 07:52 1 APPLN Multi-Ingredient Ointment (Eucerin Unscented Cr) 1 appln DAILY EXT 01/03/17 09:00 02/02/17 08:59 01/13/17 07:52 1 APPLN Glucose (Glucose 40% Gel) 15-30 GRAMS 15 GRAMS... UD PRN PO 01/02/17 13:15 02/01/17 13:14 Glucose (Glucose Chew Tab) 4-8 Tablets 4 Tabl... UD PRN PO 01/02/17 13:15 02/01/17 13:14 Dextrose (Dextrose 50% 50ML Syringe) 25-50ML OF 50% DW IV FOR... UD PRN IV 01/02/17 13:15 02/01/17 13:14 Glucagon (Glucagon Inj) 1 mg UD PRN SQ 01/02/17 13:15 02/01/17 13:14 Guaifenesin (Mucinex Contr Rel Tab) 1,200 mg Q12 PO 01/04/17 21:00 02/03/17 20:59 01/13/17 07:54 1,200 MG Albuterol/ Ipratropium (Duoneb) 3 ml Q4H PRN INH 01/09/17 04:30 02/08/17 04:29 Carvedilol (Coreg Tab) 3.125 mg BID PO 01/10/17 10:00 02/09/17 09:59 01/12/17 21:43 3.125 MG Furosemide 40 mg 40 mg BID17 PO 01/11/17 17:00 02/10/17 16:59 01/13/17 07:53 40 MG Vancomycin HCl/ Sodium Chloride (Vancomycin Inj/ Nss 250ml) 277 ml @ 125 mls/hr DAILY@1200 IV 01/13/17 12:00 01/27/17 11:59 01/13/17 12:34 125 MLS/HR Impression (1) Acute kidney injury (2) Stage 3 chronic kidney disease (3) Cellulitis of left lower extremity (4) A-fib (5) Diabetes (6) Pulmonary hypertension Mr. Avery was admitted to the hospital with LLE cellulitis, sepsis, relative hypotension and acute on chronic kidney injury. He has underlying diabetic nephropathy. His baseline creatinine has been 1.6-2.0. Blood cultures growing MRSA. This is attributed to 3rd toe osteomyelitis. He developed hematuria following Mckeon catheter placement which is resolving. Proteinuria is present c /w diabetic nephropathy. Amputation was delayed due to acute on chronic diastolic CHF. Volume status is improving. Renal function improved to baseline and remains stable. Mr. Avery stated that he would agree to going to [facility] for rehab at discharge. PMH - AODM, BMI > 40, HTN, hyperlipidemia, ASCVD s/p CABG w/ AVR, chronic atrial fibrillation, EVENS, gout, kidney stones and recurrent UTI. R Recommendations -- Remove Mckeon catheter -- Continue to monitor metabolic profile (daily while inpatient and weekly upon discharge) -- Continue carvedilol at current dose -- Continue to hold losartan -- Continue furosemide 40 mg BID -- Reviewed benefits of surgery once clinically stable with patient today -- Infectious disease note reviewed and plan of care discussed with hospitalist
[2017-01-13] MEDS ORDERED: ENOXAPARIN 1 MG/KG SQ ONE (18:30)
[2017-01-13] MEDS ORDERED: ENOXAPARIN 150 MG/1ML SYR SQ ONE (19:00)
[2017-01-14] VITALS (11 sets, daily range): BP systolic 120–148; BP diastolic 51–70; PULSE 52–65; TEMP 36.5–37; O2SAT 90–100
[2017-01-14] MEDS: LEVOTHYROXINE 100 MCG TAB PO SCH (05:39)
[2017-01-14 06:22] LABS: CREATININE 1.4 mg/dl (0.60-1.40)
[2017-01-14] MEDS: ALBUT/IPRATROP 3MG/0.5MG NEB 3 ML VIAL INH SCH ×4 (07:20→19:34)
[2017-01-14] MEDS: ACETAMINOPHEN 325 MG TAB PO PRN ×2 (07:38→17:42)
[2017-01-14] MEDS: FUROSEMIDE 40 MG TAB PO SCH ×2 (07:39→17:37)
[2017-01-14] MEDS: TAMSULOSIN HCL 0.4 MG CAP PO SCH (07:40)
[2017-01-14] MEDS: GUAIFENESIN 600 MG TABCR PO SCH ×2 (07:40→19:27)
[2017-01-14] MEDS: MICONAZOLE NITRATE POWDER 43 GM EXT SCH (07:42)
[2017-01-14] MEDS: NYSTATIN POWDER 15GM BTL EXT SCH ×2 (07:42→19:28)
[2017-01-14] MEDS: EUCERIN CR 120 GM JAR EXT SCH (07:42)
[2017-01-14] MEDS: INSULIN ASPART 100 UNITS/ML 3 ML PEN SC SCH ×4 (07:50→20:43)
[2017-01-14] MEDS: INSULIN GLARGINE SOLOSTAR 100 UNITS/ML 3 ML PEN SC SCH ×2 (07:51→20:44)
--- NOTE | 2017-01-14 08:39 | Hospitalist Progress Note ---
Hospitalist Progress Note Date of Service Jan 14, 2017. (Shadi Galan PA-C) Subjective Pt evaluation today including: conversation w/ patient, physical exam, chart review, lab review, review of studies Pain: Knee and lower back pain Voiding: no voiding problems Patient did well overnight. "Floodgates opened" regarding diuresis. No pain to foot. No fever or chills. No acute complaints Would like to go to [facility] for rehab and IV Abx prior to consideration for amputation. Case management working on acceptance. PT/OT on board and asked to evaluate for rehab Additional Comments: A total of 12 systems was reviewed and is negative other than as listed above in the HPI All Other Systems: Reviewed and Negative (Shadi Galan PA-C) Medications Current Inpatient Medications Medications (Trade) Dose Ordered Sig/Sukhwinder Route Start Time Stop Time Status Last Admin Dose Admin Acetaminophen (Tylenol Tab) 650 mg Q4H PRN PO 01/02/17 09:30 02/01/17 09:29 01/14/17 07:38 650 MG Al Hydrox/Mg Hydrox/Simethicone (Maalox Max Susp) 15 ml Q4H PRN PO 01/02/17 09:30 02/01/17 09:29 Magnesium Hydroxide (Milk Of Magnesia Susp) 30 ml Q12H PRN PO 01/02/17 09:30 02/01/17 09:29 01/06/17 08:35 30 ML Ondansetron HCl (Zofran Inj) 4 mg Q6H PRN IV 01/02/17 09:30 02/01/17 09:29 Nitroglycerin (Nitrostat Tab) 0.4 mg UD PRN SL 01/02/17 09:30 02/01/17 09:29 Polyethylene (Miralax Powder Packet) 17 gm DAILY PRN PO 01/02/17 09:30 02/01/17 09:29 01/06/17 08:35 17 GM Albuterol/ Ipratropium (Duoneb) 3 ml QIDR INH 01/02/17 12:00 02/01/17 11:59 01/14/17 07:20 3 ML Levothyroxine Sodium (Synthroid Tab) 100 mcg DAILYBB PO 01/03/17 06:00 02/02/17 08:59 01/14/17 05:39 100 MCG Tamsulosin HCl (Flomax Cap) 0.4 mg DAILY PO 01/03/17 09:00 02/02/17 08:59 01/14/17 07:40 0.4 MG Nystatin (Mycostatin Powder) 1 appln BID EXT 01/02/17 21:00 02/01/17 20:59 01/14/17 07:42 1 APPLN Morphine Sulfate (MoRPHine SULFATE INJ) 2 mg Q4H PRN IV 01/02/17 09:30 01/16/17 09:29 01/05/17 08:01 2 MG Morphine Sulfate (MoRPHine SULFATE INJ) 4 mg Q4H PRN IV 01/02/17 09:30 01/16/17 09:29 01/06/17 20:56 4 MG Oxycodone HCl (Roxicodone Immediate Rel Tab) 10 mg Q6 PRN PO 01/02/17 09:30 01/16/17 09:29 01/09/17 18:10 10 MG Insulin Aspart (novoLOG ASPART) SLIDING SCALE PARAMETER ACHS SC 01/02/17 11:00 02/01/17 10:59 01/13/17 17:49 7 UNITS Insulin Glargine (Lantus Solostar Pen) 20 unit BID SC 01/02/17 21:00 02/01/17 20:59 01/14/17 07:51 20 UNIT Vancomycin HCl (Consult) 1 ea UD PRN N/A 01/02/17 10:00 02/01/17 09:59 Miconazole Nitrate (Desenex Powder) 1 appln DAILY EXT 01/03/17 09:00 02/02/17 08:59 01/14/17 07:42 1 APPLN Multi-Ingredient Ointment (Eucerin Unscented Cr) 1 appln DAILY EXT 01/03/17 09:00 02/02/17 08:59 01/14/17 07:42 1 APPLN Glucose (Glucose 40% Gel) 15-30 GRAMS 15 GRAMS... UD PRN PO 01/02/17 13:15 02/01/17 13:14 Glucose (Glucose Chew Tab) 4-8 Tablets 4 Tabl... UD PRN PO 01/02/17 13:15 02/01/17 13:14 Dextrose (Dextrose 50% 50ML Syringe) 25-50ML OF 50% DW IV FOR... UD PRN IV 01/02/17 13:15 02/01/17 13:14 Glucagon (Glucagon Inj) 1 mg UD PRN SQ 01/02/17 13:15 02/01/17 13:14 Guaifenesin (Mucinex Contr Rel Tab) 1,200 mg Q12 PO 01/04/17 21:00 02/03/17 20:59 01/14/17 07:40 1,200 MG Albuterol/ Ipratropium (Duoneb) 3 ml Q4H PRN INH 01/09/17 04:30 02/08/17 04:29 Carvedilol (Coreg Tab) 3.125 mg BID PO 01/10/17 10:00 02/09/17 09:59 Future Hold 01/12/17 21:43 3.125 MG Furosemide 40 mg 40 mg BID17 PO 01/11/17 17:00 02/10/17 16:59 01/14/17 07:39 40 MG Vancomycin HCl/ Sodium Chloride (Vancomycin Inj/ Nss 250ml) 277 ml @ 125 mls/hr DAILY@1200 IV 01/13/17 12:00 01/27/17 11:59 01/13/17 12:34 125 MLS/HR (Shadi Galan-Rachele) Objective Vital Signs Date Time Temp Pulse Resp B/P Pulse Ox O2 Delivery O2 Flow Rate FiO2 01/14/17 07:42 36.7 56 18 128/64 100 CPAP 01/14/17 07:20 55 20 95 BiPAP/CPAP 3.0 01/14/17 04:10 37.0 60 21 120/51 90 CPAP 01/14/17 04:00 90 CPAP 01/13/17 23:59 90 CPAP 01/13/17 23:54 36.5 56 20 134/66 95 CPAP 01/13/17 20:11 65 20 91 BiPAP/CPAP 3.0 01/13/17 20:00 90 CPAP 01/13/17 19:36 36.9 52 19 119/50 90 CPAP 01/13/17 16:00 Nasal Cannula 2.0 CPAP 01/13/17 16:00 36.6 48 19 152/68 91 Nasal Cannula 2.0 01/13/17 15:42 50 20 91 Nasal Cannula 2.0 01/13/17 12:00 Nasal Cannula 2.0 CPAP 01/13/17 11:26 36.8 48 18 137/84 99 2.0 01/13/17 11:20 49 20 100 Nasal Cannula 4.0 01/13/17 08:00 Nasal Cannula 2.0 CPAP (Shadi Galan PA-C) Physical Exam Notes: Vital Signs - as noted below Laboratory Data - as noted below Physical Exam: General - NAD. Seen while in bedside chair Eyes - No icterus, gaze conjugate ENT - Mucosa moist, no lesions or candidiasis Neck - Supple, No JVD Lungs - No bronchospasm, rales, or rhonchi. Heart - Regular, rate controlled Abdomen - Soft, NT, ND, BS present Extremities - N+2 edema, pedal pulses intact and equal bilaterally. Dressing dry and intact to left foot. Neuro - A&OX3 (Shadi Galan PA-C) Laboratory Results Last 24 Hours Test 01/13/17 11:16 01/13/17 15:53 01/13/17 20:13 01/14/17 05:41 Bedside Glucose 106 mg/dl 151 mg/dl 149 mg/dl Creatinine 1.40 mg/dl Est Creatinine Clear Calc Drug Dose 55.7 ml/min Estimated GFR () 54.2 Estimated GFR (Non- 46.8 Thyroid Stimulating Hormone (TSH) 1.190 uIu/ml Test 01/14/17 06:54 Bedside Glucose 92 mg/dl (Shadi Galan PA-C) Assessment and Plan OSTEOMYELITIS LEFT 3rd TOE Ortho on board - suggests amputation when medically stable Patient continues to defer on amputation at this time and prefers to closely monitor and follow clinically Would like to be referred to [facility] rehab when stable Initial blood cultures with MRSA Repeat BCs X 2 negative for growth PICC line placed in left upper arm 01/12/2017 ID consulted - appreciate Dr. Rabago's input - suggests IV abx for at least 6 weeks Currently IV vancomycin. Need to discuss IV antibiotic plan with ID as patient is now not planning on surgery and will need close monitoring Will need follow-up at the [facility] following discharge as well as with infectious disease BRADYCARDIA Carvedilol held 01/13/17 p.m. Right now in the 60s but in atrial fibrillation Continue to monitor on telemetry Patient asymptomatic ACUTE KIDNEY INJURY Nephrology consulted appreciate Dr. Dan's input Baseline creatinine 1.6-2.0 Currently with good urine output via Mckeon BUN 48/creatinine 1.5 today Follow serial labs CAD S/P CABG, AVR Bradycardic - hold carvidolol and follow on telemetry. Improved from the 40s yesterday to the 60s today but now back in atrial fibrillation TTE negative for endocarditis No chest pain EVENS Continue patient's home CPAP ATRIAL FIBRILLATION Resume Coumadin - previous dose 5 mg daily except for Sunday when dose was reduced to 2.5 mg Will bridge with Enoxaparin 1 mg/kg twice a day until INR therapeutic DVT PROPHYLAXIS Enoxaparin Please refer to Dr. Gold's addendum for further recommendations Continued [facility] stay due to: multiple IV medications needed, other (awaiting approval for [facility]) Discharge planning: rehab hospital (Shadi Galan PA-C) Reviewed: Pt Seen/Exam by Me (Janneth Gold MD) History Physician Manager Bridge Supervision Note: I interviewed and examined the patient. Discussed with HOMER Galan and agree with findings and plan as documented in the note. Any exceptions or clarifications are listed here: Patient feeling well, no complaints, is -10 L net for the hospital stay. Vitals and telemetry reviewed Morbidly obese, no acute distress Irregularly irregular rhythm, 2/6 systolic murmur at the left lower sternal border Decreased lung sounds with some crackles at the bases but otherwise clear and breathing is unlabored Abdomen positive bowel sounds soft nontender nondistended Extremities-lower extremities with 2-3+ pitting edema to the thighs bilaterally , left third toe with dressing in place and not removed for this exam-clean dry and intact Skin-diffuse xerosis Patient doing very well after prolonged hospital course for left third toe osteomyelitis with MRSA bacteremia and acute kidney injury in the setting of chronic kidney disease stage III. Course also complicated by fluid overload secondary to acute on chronic right-sided systolic CHF. -Continue IV vancomycin for total minimum 6 weeks-course to continue through approximately February 13 -Should have weekly CMP, CBC, ESR, CRP wall on IV antibiotics -Follow up with orthopedics within 2-3 weeks and needs daily wound care as well as wound care clinic follow-up -Continue Lasix by mouth twice a day for diuresis with right-sided heart failure -Continue CPAP for EVENS and continuous nasal cannula oxygen for chronic respiratory failure secondary to pulmonary hypertension -Follow renal function once weekly while on antibiotics and should follow-up with nephrology routinely as an outpatient -Diabetes well controlled-continue insulin regimen -Continue to hold carvedilol for bradycardia/slow A. fib into the 30s at nighttime, bridging with Lovenox until Coumadin therapeutic again, follow INR -Plan to discharge hopefully to [facility] tomorrow Documented By: Janneth Gold (Janneth Gold MD)
[2017-01-14 10:56] LABS: BUN/CREATININE RATIO 32.2 (10-20); CALCIUM 8.2 mg/dl (8.5-10.1); CREATININE 1.5 mg/dl (0.60-1.40); PHOSPHORUS 2.8 mg/dl (2.5-4.9); POTASSIUM 4.2 mmol/L (3.5-5.1)
[2017-01-14] MEDS: VANCOMYCIN INJ 1,350 MG in SODIUM CHLORIDE 0.9% 250ML 250 ML IV SCH (12:15)
--- NOTE | 2017-01-14 12:21 | Nephrology Progress Note ---
Nephrology Progress Note Date of Service Jan 14, 2017. Chief Complaint CARLO/CKD Subjective No acute events overnight. No complaints this morning. Denies shortness of breath. No fevers or chills. Edema continues to improve. Urine output increased. Voiding urine without difficulty. Appetite good. Reports some weakness and is looking forward to PT at [facility]. Review of Systems A complete review of systems was performed. Pertinent positives are noted above. All other systems are negative. Vital Signs Last 8 Hrs Date Time Temp Pulse Resp B/P Pulse Ox O2 Delivery O2 Flow Rate FiO2 01/14/17 11:32 36.5 52 18 128/64 100 Nasal Cannula 2.0 01/14/17 11:14 52 20 100 Nasal Cannula 3.0 01/14/17 08:00 Nasal Cannula 2.0 CPAP 01/14/17 07:42 36.7 56 18 128/64 100 CPAP 01/14/17 07:20 55 20 95 BiPAP/CPAP 3.0 I & O 24-Hour Column 01/14/17 08:00 Intake Total 1015 ml Output Total 2225 ml Balance -1210 ml Last Recorded Weight Weight (Kilograms): 131.800 Physical Exam General Appearance: no apparent distress, + obese Head: normocephalic, atraumatic Eyes: normal inspection, sclerae normal ENT: normal ENT inspection, pharynx normal Neck: supple, + JVD (Increased JVP sitting upright) Respiratory/Chest: lungs clear, + decreased breath sounds, + rales Cardiovascular: no murmur, + bradycardia Abdomen/GI: non tender, + distended Extremities/Musculoskelatal: + pedal edema, + pertinent finding (chronic stasis changes, no dystal cyanosis) Neurologic/Psych: alert, normal mood/affect, oriented x 3 Family History Negative for CKD / ESRD Social History Marital Status: Occupation: retired Retired. Originally from [employer]. 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 Never a smoker Laboratory Results Past 24 Hours 01/14/17 05:41 01/14/17 10:00 Test 01/13/17 15:53 01/13/17 20:13 01/14/17 05:41 01/14/17 06:54 Bedside Glucose 151 mg/dl (70-99) 149 mg/dl (70-99) 92 mg/dl (70-99) Est Creatinine Clear Calc Drug Dose 55.7 ml/min Estimated GFR () 54.2 Estimated GFR (Non- 46.8 Thyroid Stimulating Hormone (TSH) 1.190 uIu/ml (0.300-4.500) Test 01/14/17 10:00 01/14/17 11:13 Anion Gap 7.0 mmol/L (3-11) Est Creatinine Clear Calc Drug Dose 52.0 ml/min Estimated GFR () 49.9 Estimated GFR (Non- 43.0 BUN/Creatinine Ratio 32.2 (10-20) Calcium Level 8.2 mg/dl (8.5-10.1) Phosphorus Level 2.8 mg/dl (2.5-4.9) Magnesium Level 2.0 mg/dl (1.8-2.4) Albumin 2.4 gm/dl (3.4-5.0) Bedside Glucose 155 mg/dl (70-99) Allergies Coded Allergies: Chlorpheniramine (Unverified Allergy, Unknown, ., 01/02/17) Phenylpropanolamine (Unverified Allergy, Unknown, ., 01/02/17) Medications Current Inpatient Medications Medications (Trade) Dose Ordered Sig/Sukhwinder Route Start Time Stop Time Status Last Admin Dose Admin Acetaminophen (Tylenol Tab) 650 mg Q4H PRN PO 01/02/17 09:30 02/01/17 09:29 01/14/17 07:38 650 MG Al Hydrox/Mg Hydrox/Simethicone (Maalox Max Susp) 15 ml Q4H PRN PO 01/02/17 09:30 02/01/17 09:29 Magnesium Hydroxide (Milk Of Magnesia Susp) 30 ml Q12H PRN PO 01/02/17 09:30 02/01/17 09:29 01/06/17 08:35 30 ML Ondansetron HCl (Zofran Inj) 4 mg Q6H PRN IV 01/02/17 09:30 02/01/17 09:29 Nitroglycerin (Nitrostat Tab) 0.4 mg UD PRN SL 01/02/17 09:30 02/01/17 09:29 Polyethylene (Miralax Powder Packet) 17 gm DAILY PRN PO 01/02/17 09:30 02/01/17 09:29 01/06/17 08:35 17 GM Albuterol/ Ipratropium (Duoneb) 3 ml QIDR INH 01/02/17 12:00 02/01/17 11:59 01/14/17 11:11 3 ML Levothyroxine Sodium (Synthroid Tab) 100 mcg DAILYBB PO 01/03/17 06:00 02/02/17 08:59 01/14/17 05:39 100 MCG Tamsulosin HCl (Flomax Cap) 0.4 mg DAILY PO 01/03/17 09:00 02/02/17 08:59 01/14/17 07:40 0.4 MG Nystatin (Mycostatin Powder) 1 appln BID EXT 01/02/17 21:00 02/01/17 20:59 01/14/17 07:42 1 APPLN Morphine Sulfate (MoRPHine SULFATE INJ) 2 mg Q4H PRN IV 01/02/17 09:30 01/16/17 09:29 01/05/17 08:01 2 MG Morphine Sulfate (MoRPHine SULFATE INJ) 4 mg Q4H PRN IV 01/02/17 09:30 01/16/17 09:29 01/06/17 20:56 4 MG Oxycodone HCl (Roxicodone Immediate Rel Tab) 10 mg Q6 PRN PO 01/02/17 09:30 01/16/17 09:29 01/09/17 18:10 10 MG Insulin Aspart (novoLOG ASPART) SLIDING SCALE PARAMETER ACHS SC 01/02/17 11:00 02/01/17 10:59 01/14/17 07:50 2 UNITS Insulin Glargine (Lantus Solostar Pen) 20 unit BID SC 01/02/17 21:00 02/01/17 20:59 01/14/17 07:51 20 UNIT Vancomycin HCl (Consult) 1 ea UD PRN N/A 01/02/17 10:00 02/01/17 09:59 Miconazole Nitrate (Desenex Powder) 1 appln DAILY EXT 01/03/17 09:00 02/02/17 08:59 01/14/17 07:42 1 APPLN Multi-Ingredient Ointment (Eucerin Unscented Cr) 1 appln DAILY EXT 01/03/17 09:00 02/02/17 08:59 01/14/17 07:42 1 APPLN Glucose (Glucose 40% Gel) 15-30 GRAMS 15 GRAMS... UD PRN PO 01/02/17 13:15 02/01/17 13:14 Glucose (Glucose Chew Tab) 4-8 Tablets 4 Tabl... UD PRN PO 01/02/17 13:15 02/01/17 13:14 Dextrose (Dextrose 50% 50ML Syringe) 25-50ML OF 50% DW IV FOR... UD PRN IV 01/02/17 13:15 02/01/17 13:14 Glucagon (Glucagon Inj) 1 mg UD PRN SQ 01/02/17 13:15 02/01/17 13:14 Guaifenesin (Mucinex Contr Rel Tab) 1,200 mg Q12 PO 01/04/17 21:00 02/03/17 20:59 01/14/17 07:40 1,200 MG Albuterol/ Ipratropium (Duoneb) 3 ml Q4H PRN INH 01/09/17 04:30 02/08/17 04:29 Carvedilol (Coreg Tab) 3.125 mg BID PO 01/10/17 10:00 02/09/17 09:59 Future Hold 01/12/17 21:43 3.125 MG Furosemide 40 mg 40 mg BID17 PO 01/11/17 17:00 02/10/17 16:59 01/14/17 07:39 40 MG Vancomycin HCl/ Sodium Chloride (Vancomycin Inj/ Nss 250ml) 277 ml @ 125 mls/hr DAILY@1200 IV 01/13/17 12:00 01/27/17 11:59 01/13/17 12:34 125 MLS/HR Impression (1) Acute kidney injury (2) Stage 3 chronic kidney disease (3) Cellulitis of left lower extremity (4) A-fib (5) Diabetes (6) Pulmonary hypertension Mr. Avery is an 81 year-old who was admitted to [facility] with LLE cellulitis, sepsis, hypotension and acute on chronic kidney injury. He has underlying diabetic nephropathy. His baseline creatinine has been 1.6-2.0. 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 He developed hematuria following Mckeon catheter placement which is resolving. UA notable for granular casts consistent with ATN. Proteinuria is present c/w diabetic nephropathy. Amputation was delayed due to acute on chronic diastolic CHF. Volume status is improving. Renal function improved to baseline and remains stable. Mr. Avery is planning to going to [facility] for rehab. Potential discharge tomorrow. Carvedilol was held yesterday due to acute on chronic bradycardia. Urine output increased with free water losses noted. TTE was notable for LVEF 55% with inferior apical hypokinesis/akinesis. Mild concentric LVH was noted. There was severe pulmonary hypertension (PASP 67). PMH - AODM, BMI > 40, HTN, hyperlipidemia, ASCVD s/p CABG w/ AVR, chronic atrial fibrillation, EV[place], gout, kidney stones and recurrent UTI. Recommendations -- Encourage oral free water intake -- Repeat metabolic profile tomorrow AM -- Blood pressure appropriate while holding carvedilol and losartan -- Continue furosemide 40 mg BID -- Follow up with orthopedics once clinically stable -- Infectious disease follow up scheduled -- Medications appropriate for renal function
[2017-01-14] MEDS ORDERED: ENOXAPARIN 1 MG/KG SQ ONE (12:50)
[2017-01-14] MEDS: ENOXAPARIN 150 MG/1ML SYR SQ SCH (14:42)
[2017-01-14] MEDS: WARFARIN SOD 5 MG TAB PO SCH (15:28)
[2017-01-14] MEDS ORDERED: ENOXAPARIN 1 MG/KG SQ SCH (21:00)
[2017-01-15] VITALS (10 sets, daily range): BP systolic 109–168; BP diastolic 60–77; PULSE 51–76; TEMP 36.3–37.1; O2SAT 92–99
[2017-01-15] MEDS: LEVOTHYROXINE 100 MCG TAB PO SCH (05:53)
[2017-01-15] MEDS: ENOXAPARIN 150 MG/1ML SYR SQ SCH (05:54)
[2017-01-15] MEDS: ALBUT/IPRATROP 3MG/0.5MG NEB 3 ML VIAL INH SCH ×4 (07:03→19:31)
[2017-01-15 07:36] LABS: BASO % 0.1 %; BASO ABS # 0.01 K/uL (0-0.2); COMPLETE YES; EOS % 1.2 %; IG% 0.6 %; LYMPH ABS # 1.07 K/uL (1.2-3.4); MEAN CELL VOLUME 95.7 fL (80-100); MEAN CORPUSCULAR HEMOGLOBIN 30.6 pg (25-34); MEAN CORPUSCULAR HGB CONC 31.9 g/dl (32-36); MEAN PLATELET VOLUME 9.1 fL (7.4-10.4); MONO % 7.2 %; NEUT % 84.9 %; PLATELET COUNT 480 K/uL (130-400); RED BLOOD COUNT 3.24 M/uL (4.7-6.1); WHITE BLOOD COUNT 17.86 K/uL (4.8-10.8)
[2017-01-15 08:03] LABS: BUN/CREATININE RATIO 26.6 (10-20); CALCIUM 8.5 mg/dl (8.5-10.1); CREATININE 1.6 mg/dl (0.60-1.40); MAGNESIUM 2.2 mg/dl (1.8-2.4); POTASSIUM 4.3 mmol/L (3.5-5.1)
[2017-01-15] MEDS: INSULIN ASPART 100 UNITS/ML 3 ML PEN SC SCH ×4 (08:04→21:36)
[2017-01-15] MEDS: INSULIN GLARGINE SOLOSTAR 100 UNITS/ML 3 ML PEN SC SCH ×2 (08:04→21:35)
[2017-01-15] MEDS: EUCERIN CR 120 GM JAR EXT SCH (08:05)
[2017-01-15] MEDS: MICONAZOLE NITRATE POWDER 43 GM EXT SCH (08:05)
[2017-01-15] MEDS: FUROSEMIDE 40 MG TAB PO SCH ×2 (08:05→17:32)
[2017-01-15] MEDS: NYSTATIN POWDER 15GM BTL EXT SCH ×2 (08:05→19:46)
[2017-01-15] MEDS: ACETAMINOPHEN 325 MG TAB PO PRN ×2 (08:06→18:14)
[2017-01-15] MEDS: GUAIFENESIN 600 MG TABCR PO SCH ×2 (08:06→19:46)
[2017-01-15] MEDS: TAMSULOSIN HCL 0.4 MG CAP PO SCH (08:06)
--- NOTE | 2017-01-15 10:43 | Nephrology Progress Note ---
Nephrology Progress Note Date of Service January 15, 2017. Chief Complaint CARLO/CKD Subjective No acute events overnight. Mr. Avery was seen and evaluated with his family at the bedside this morning. He continues to feel better on a daily basis. He denies chest pain, palpitations or shortness of breath. Edema continues to improve. He denies fevers or chills. Activity tolerance improving. Review of Systems A complete review of systems was performed. Pertinent positives are noted above. All other systems are negative. Vital Signs Last 8 Hrs Date Time Temp Pulse Resp B/P Pulse Ox O2 Delivery O2 Flow Rate FiO2 01/15/17 08:00 Nasal Cannula 2.0 CPAP 01/15/17 07:25 36.9 76 20 168/74 99 Nasal Cannula 2.0 01/15/17 07:04 57 18 98 Nasal Cannula 2.0 01/15/17 04:03 CPAP 01/15/17 04:00 36.3 63 20 141/77 96 CPAP I & O 24-Hour Column 01/15/17 08:00 Intake Total 1174 ml Output Total 3200 ml Balance -2026 ml Last Recorded Weight Weight (Kilograms): 131.400 Physical Exam General Appearance: no apparent distress, + obese Head: normocephalic, atraumatic Eyes: normal inspection, sclerae normal ENT: normal ENT inspection, pharynx normal Neck: supple, no JVD Respiratory/Chest: lungs clear, no respiratory distress, no accessory muscle use, + decreased breath sounds Cardiovascular: regular rate, rhythm, no gallop Abdomen/GI: non tender, soft, + distended Extremities/Musculoskelatal: normal inspection, + pedal edema Neurologic/Psych: alert, oriented x 3 Family History Negative for CKD / ESRD Social History Marital Status: Occupation: retired Retired. Originally from [employer] [place]. 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 Never a smoker Laboratory Results Past 24 Hours 01/15/17 06:40 Red Blood Count 3.24, Mean Corpuscular Volume 95.7, Mean Corpuscular Hemoglobin 30.6, Mean Corpuscular Hemoglobin Concent 31.9, Mean Platelet Volume 9.1, Neutrophils (%) (Auto) 84.9, Lymphocytes (%) (Auto) 6.0, Monocytes (%) (Auto) 7.2, Eosinophils (%) (Auto) 1.2, Basophils (%) (Auto) 0.1, Neutrophils # (Auto) 15.18, Lymphocytes # (Auto) 1.07, Monocytes # (Auto) 1.28, Eosinophils # (Auto) 0.21, Basophils # (Auto) 0.01 01/15/17 06:40 Test 01/14/17 11:13 01/14/17 15:58 01/14/17 20:08 01/15/17 06:40 Bedside Glucose 155 mg/dl (70-99) 113 mg/dl (70-99) 190 mg/dl (70-99) White Blood Count 17.86 K/uL (4.8-10.8) Red Blood Count 3.24 M/uL (4.7-6.1) Hemoglobin 9.9 g/dL (14.0-18.0) Hematocrit 31.0 % (42-52) Mean Corpuscular Volume 95.7 fL (80-100) Mean Corpuscular Hemoglobin 30.6 pg (25-34) Mean Corpuscular Hemoglobin Concent 31.9 g/dl (32-36) Platelet Count 480 K/uL (130-400) Mean Platelet Volume 9.1 fL (7.4-10.4) Neutrophils (%) (Auto) 84.9 % Lymphocytes (%) (Auto) 6.0 % Monocytes (%) (Auto) 7.2 % Eosinophils (%) (Auto) 1.2 % Basophils (%) (Auto) 0.1 % Neutrophils # (Auto) 15.18 K/uL (1.4-6.5) Lymphocytes # (Auto) 1.07 K/uL (1.2-3.4) Monocytes # (Auto) 1.28 K/uL (0.11-0.59) Eosinophils # (Auto) 0.21 K/uL (0-0.5) Basophils # (Auto) 0.01 K/uL (0-0.2) RDW Standard Deviation 54.9 fL (36.4-46.3) RDW Coefficient of Variation 15.9 % (11.5-14.5) Immature Granulocyte % (Auto) 0.6 % Immature Granulocyte # (Auto) 0.11 K/uL (0.00-0.02) Prothrombin Time 22.0 SECONDS (9.0-12.0) Prothromb Time International Ratio 2.0 (0.9-1.1) Anion Gap 6.0 mmol/L (3-11) Est Creatinine Clear Calc Drug Dose 48.6 ml/min Estimated GFR () 46.1 Estimated GFR (Non- 39.8 BUN/Creatinine Ratio 26.6 (10-20) Calcium Level 8.5 mg/dl (8.5-10.1) Magnesium Level 2.2 mg/dl (1.8-2.4) Test 01/15/17 06:48 Bedside Glucose 137 mg/dl (70-99) Allergies Coded Allergies: Chlorpheniramine (Unverified Allergy, Unknown, ., 01/02/17) Phenylpropanolamine (Unverified Allergy, Unknown, ., 01/02/17) Medications Current Inpatient Medications Medications (Trade) Dose Ordered Sig/Sukhwinder Route Start Time Stop Time Status Last Admin Dose Admin Acetaminophen (Tylenol Tab) 650 mg Q4H PRN PO 01/02/17 09:30 02/01/17 09:29 01/15/17 08:06 650 MG Al Hydrox/Mg Hydrox/Simethicone (Maalox Max Susp) 15 ml Q4H PRN PO 01/02/17 09:30 02/01/17 09:29 Magnesium Hydroxide (Milk Of Magnesia Susp) 30 ml Q12H PRN PO 01/02/17 09:30 02/01/17 09:29 01/06/17 08:35 30 ML Ondansetron HCl (Zofran Inj) 4 mg Q6H PRN IV 01/02/17 09:30 02/01/17 09:29 Nitroglycerin (Nitrostat Tab) 0.4 mg UD PRN SL 01/02/17 09:30 02/01/17 09:29 Polyethylene (Miralax Powder Packet) 17 gm DAILY PRN PO 01/02/17 09:30 02/01/17 09:29 01/06/17 08:35 17 GM Albuterol/ Ipratropium (Duoneb) 3 ml QIDR INH 01/02/17 12:00 02/01/17 11:59 01/15/17 07:03 3 ML Levothyroxine Sodium (Synthroid Tab) 100 mcg DAILYBB PO 01/03/17 06:00 02/02/17 08:59 01/15/17 05:53 100 MCG Tamsulosin HCl (Flomax Cap) 0.4 mg DAILY PO 01/03/17 09:00 02/02/17 08:59 01/15/17 08:06 0.4 MG Nystatin (Mycostatin Powder) 1 appln BID EXT 01/02/17 21:00 02/01/17 20:59 01/15/17 08:05 1 APPLN Morphine Sulfate (MoRPHine SULFATE INJ) 2 mg Q4H PRN IV 01/02/17 09:30 01/16/17 09:29 01/05/17 08:01 2 MG Morphine Sulfate (MoRPHine SULFATE INJ) 4 mg Q4H PRN IV 01/02/17 09:30 01/16/17 09:29 01/06/17 20:56 4 MG Oxycodone HCl (Roxicodone Immediate Rel Tab) 10 mg Q6 PRN PO 01/02/17 09:30 01/16/17 09:29 01/09/17 18:10 10 MG Insulin Aspart (novoLOG ASPART) SLIDING SCALE PARAMETER ACHS SC 01/02/17 11:00 02/01/17 10:59 01/15/17 08:04 3 UNITS Insulin Glargine (Lantus Solostar Pen) 20 unit BID SC 01/02/17 21:00 02/01/17 20:59 01/15/17 08:04 20 UNIT Vancomycin HCl (Consult) 1 ea UD PRN N/A 01/02/17 10:00 02/01/17 09:59 Miconazole Nitrate (Desenex Powder) 1 appln DAILY EXT 01/03/17 09:00 02/02/17 08:59 01/15/17 08:05 1 APPLN Multi-Ingredient Ointment (Eucerin Unscented Cr) 1 appln DAILY EXT 01/03/17 09:00 02/02/17 08:59 01/15/17 08:05 1 APPLN Glucose (Glucose 40% Gel) 15-30 GRAMS 15 GRAMS... UD PRN PO 01/02/17 13:15 02/01/17 13:14 Glucose (Glucose Chew Tab) 4-8 Tablets 4 Tabl... UD PRN PO 01/02/17 13:15 02/01/17 13:14 Dextrose (Dextrose 50% 50ML Syringe) 25-50ML OF 50% DW IV FOR... UD PRN IV 01/02/17 13:15 02/01/17 13:14 Glucagon (Glucagon Inj) 1 mg UD PRN SQ 01/02/17 13:15 02/01/17 13:14 Guaifenesin (Mucinex Contr Rel Tab) 1,200 mg Q12 PO 01/04/17 21:00 02/03/17 20:59 01/15/17 08:06 1,200 MG Albuterol/ Ipratropium (Duoneb) 3 ml Q4H PRN INH 01/09/17 04:30 02/08/17 04:29 Carvedilol (Coreg Tab) 3.125 mg BID PO 01/10/17 10:00 02/09/17 09:59 Future Hold 01/12/17 21:43 3.125 MG Furosemide 40 mg 40 mg BID17 PO 01/11/17 17:00 02/10/17 16:59 01/15/17 08:05 40 MG Vancomycin HCl/ Sodium Chloride (Vancomycin Inj/ Nss 250ml) 277 ml @ 125 mls/hr DAILY@1200 IV 01/13/17 12:00 01/27/17 11:59 01/14/17 12:15 125 MLS/HR Warfarin Sodium (Coumadin Tab) 5 mg DAILY@16 PO 01/14/17 16:00 02/13/17 15:59 01/14/17 15:28 5 MG Enoxaparin Sodium (Lovenox Inj) 129 mg Q12@0600,1800 SQ 01/14/17 14:30 02/13/17 14:29 01/15/17 05:54 129 MG Impression (1) Acute kidney injury (2) Stage 3 chronic kidney disease (3) Cellulitis of left lower extremity (4) A-fib (5) Diabetes (6) Pulmonary hypertension Mr. Avery is an 81 year-old who was admitted to [facility] with LLE cellulitis, sepsis, hypotension and acute on chronic kidney injury. He has underlying diabetic nephropathy. His baseline creatinine has been 1.6-2.0. 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 He developed hematuria following Mckeon catheter placement which is resolving. UA notable for granular casts consistent with ATN. Proteinuria is present c/w diabetic nephropathy. Amputation was delayed due to acute on chronic diastolic CHF. Volume continues improving. Renal function improved to baseline and remains stable. Mr. Avery is planning to going to [facility] for rehab. Potential discharge today. Carvedilol was held yesterday due to acute on chronic bradycardia. TTE was notable for LVEF 55% with inferior apical hypokinesis/akinesis. Mild concentric LVH was noted. There was severe pulmonary hypertension (PASP 67). PMH - AODM, BMI > 40, HTN, hyperlipidemia, ASCVD s/p CABG w/ AVR, chronic atrial fibrillation, EVENS, gout, kidney stones and recurrent UTI. Recommendations -- Continue furosemide 40 mg BID -- Monitor metabolic profile weekly (results can be sent to me at [phone]) -- Follow up in the nephrology clinic within 1-2 weeks of discharge from [facility] ( call [phone] to schedule) -- Blood pressure appropriate while holding carvedilol and losartan. If it remains elevated suggest starting BID hydralazine (or restarting carvedilol if HR acceptable) -- Follow up with orthopedics once clinically stable -- Infectious disease follow up scheduled -- Medications appropriate for renal function
[2017-01-15] MEDS: VANCOMYCIN INJ 1,350 MG in SODIUM CHLORIDE 0.9% 250ML 250 ML IV SCH (12:12)
[2017-01-15] MEDS ORDERED: NURSING DECISION MEDICATION ORDER SCH (12:45)
[2017-01-15] MEDS ORDERED: SODIUM CHLORIDE 0.65% NA SOLN 45 ML (OCEAN) PRN (13:00)
[2017-01-15] MEDS ORDERED: WARFARIN SOD 5 MG TAB PO ONE (16:16)
--- NOTE | 2017-01-15 16:21 | Progress Note ---
Subjective Date of Service: January 15, 2017. Subjective Pt evaluation today including: conversation w/ patient, conversation w/ family (, daughter, son), physical exam, lab review, review of inpatient medication list Pain: foot pain PO Intake: adequate Voiding: no voiding problems making a lot of urine with Lasix 40mg PO BID, diuresing well, less edema plan for IV antibiotics on d/c, PICC in place waiting on insurance approval for rehab, will not get answer today Problem List Medical Problems: (1) Cellulitis of left lower extremity Status: Acute (2) Sepsis Status: Acute Review of Systems Constitutional: + fatigue, + weakness Cardiac: + edema (going down but still more than baseline) Musculoskeletal: + joint pain (foot) All Other Systems: Reviewed and Negative Medications Current Inpatient Medications Medications (Trade) Dose Ordered Sig/Sukhwinder Route Start Time Stop Time Status Last Admin Dose Admin Acetaminophen (Tylenol Tab) 650 mg Q4H PRN PO 01/02/17 09:30 02/01/17 09:29 01/15/17 08:06 650 MG Al Hydrox/Mg Hydrox/Simethicone (Maalox Max Susp) 15 ml Q4H PRN PO 01/02/17 09:30 02/01/17 09:29 Magnesium Hydroxide (Milk Of Magnesia Susp) 30 ml Q12H PRN PO 01/02/17 09:30 02/01/17 09:29 01/06/17 08:35 30 ML Ondansetron HCl (Zofran Inj) 4 mg Q6H PRN IV 01/02/17 09:30 02/01/17 09:29 Nitroglycerin (Nitrostat Tab) 0.4 mg UD PRN SL 01/02/17 09:30 02/01/17 09:29 Polyethylene (Miralax Powder Packet) 17 gm DAILY PRN PO 01/02/17 09:30 02/01/17 09:29 01/06/17 08:35 17 GM Albuterol/ Ipratropium (Duoneb) 3 ml QIDR INH 01/02/17 12:00 02/01/17 11:59 01/15/17 15:18 3 ML Levothyroxine Sodium (Synthroid Tab) 100 mcg DAILYBB PO 01/03/17 06:00 02/02/17 08:59 01/15/17 05:53 100 MCG Tamsulosin HCl (Flomax Cap) 0.4 mg DAILY PO 01/03/17 09:00 02/02/17 08:59 01/15/17 08:06 0.4 MG Nystatin (Mycostatin Powder) 1 appln BID EXT 01/02/17 21:00 02/01/17 20:59 01/15/17 08:05 1 APPLN Morphine Sulfate (MoRPHine SULFATE INJ) 2 mg Q4H PRN IV 01/02/17 09:30 01/16/17 09:29 01/05/17 08:01 2 MG Morphine Sulfate (MoRPHine SULFATE INJ) 4 mg Q4H PRN IV 01/02/17 09:30 01/16/17 09:29 01/06/17 20:56 4 MG Oxycodone HCl (Roxicodone Immediate Rel Tab) 10 mg Q6 PRN PO 01/02/17 09:30 01/16/17 09:29 01/09/17 18:10 10 MG Insulin Aspart (novoLOG ASPART) SLIDING SCALE PARAMETER ACHS SC 01/02/17 11:00 02/01/17 10:59 01/15/17 12:17 6 UNITS Insulin Glargine (Lantus Solostar Pen) 20 unit BID SC 01/02/17 21:00 02/01/17 20:59 01/15/17 08:04 20 UNIT Vancomycin HCl (Consult) 1 ea UD PRN N/A 01/02/17 10:00 02/01/17 09:59 Miconazole Nitrate (Desenex Powder) 1 appln DAILY EXT 01/03/17 09:00 02/02/17 08:59 01/15/17 08:05 1 APPLN Multi-Ingredient Ointment (Eucerin Unscented Cr) 1 appln DAILY EXT 01/03/17 09:00 02/02/17 08:59 01/15/17 08:05 1 APPLN Glucose (Glucose 40% Gel) 15-30 GRAMS 15 GRAMS... UD PRN PO 01/02/17 13:15 02/01/17 13:14 Glucose (Glucose Chew Tab) 4-8 Tablets 4 Tabl... UD PRN PO 01/02/17 13:15 02/01/17 13:14 Dextrose (Dextrose 50% 50ML Syringe) 25-50ML OF 50% DW IV FOR... UD PRN IV 01/02/17 13:15 02/01/17 13:14 Glucagon (Glucagon Inj) 1 mg UD PRN SQ 01/02/17 13:15 02/01/17 13:14 Guaifenesin (Mucinex Contr Rel Tab) 1,200 mg Q12 PO 01/04/17 21:00 02/03/17 20:59 01/15/17 08:06 1,200 MG Albuterol/ Ipratropium (Duoneb) 3 ml Q4H PRN INH 01/09/17 04:30 02/08/17 04:29 Carvedilol (Coreg Tab) 3.125 mg BID PO 01/10/17 10:00 02/09/17 09:59 Future Hold 01/12/17 21:43 3.125 MG Furosemide 40 mg 40 mg BID17 PO 01/11/17 17:00 02/10/17 16:59 01/15/17 08:05 40 MG Vancomycin HCl/ Sodium Chloride (Vancomycin Inj/ Nss 250ml) 277 ml @ 125 mls/hr DAILY@1200 IV 01/13/17 12:00 01/27/17 11:59 01/15/17 12:12 125 MLS/HR Warfarin Sodium (Coumadin Tab) 5 mg DAILY@16 PO 01/14/17 16:00 02/13/17 15:59 01/14/17 15:28 5 MG Enoxaparin Sodium (Lovenox Inj) 129 mg Q12@0600,1800 SQ 01/14/17 14:30 02/13/17 14:29 01/15/17 05:54 129 MG Sodium Chloride ([place] Nasal Eleva) 1 sprays PRN PRN NA 01/15/17 13:00 02/14/17 12:59 Objective Vital Signs Date Time Temp Pulse Resp B/P Pulse Ox O2 Delivery O2 Flow Rate FiO2 01/15/17 15:36 36.8 70 16 137/62 93 Room Air 01/15/17 15:18 61 18 94 Room Air 01/15/17 13:19 37.1 51 18 96 Room Air 01/15/17 12:00 Room Air 01/15/17 11:18 51 18 96 Room Air 01/15/17 11:07 37.1 54 22 132/62 95 Room Air 01/15/17 08:00 Nasal Cannula 2.0 CPAP 01/15/17 07:25 36.9 76 20 168/74 99 Nasal Cannula 2.0 01/15/17 07:04 57 18 98 Nasal Cannula 2.0 01/15/17 04:03 CPAP 01/15/17 04:00 36.3 63 20 141/77 96 CPAP 01/14/17 23:59 CPAP 01/14/17 23:42 36.9 57 20 145/70 99 CPAP 01/14/17 20:00 Nasal Cannula 2.0 01/14/17 19:41 36.7 61 20 143/64 98 Nasal Cannula 2.0 01/14/17 19:35 65 18 95 Nasal Cannula 2.0 Physical Exam General Appearance: no apparent distress, + obese Eyes: normal inspection, EOMI, sclerae normal ENT: normal ENT inspection, hearing grossly normal, pharynx normal Neck: supple, no adenopathy, no JVD, trachea midline Respiratory/Chest: chest non-tender, lungs clear, normal breath sounds, no respiratory distress, no accessory muscle use Cardiovascular: regular rate, rhythm, no gallop, no JVD, no murmur Abdomen: normal bowel sounds, non tender, soft, no organomegaly Extremities: normal range of motion, non-tender, normal inspection, + pedal edema (pitting, shins bilaterally) 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, no motor/sensory deficits, alert, normal mood/affect, oriented x 3 Skin: normal color, warm/dry, no rash Laboratory Results Last 24 Hours Test 01/14/17 20:08 01/15/17 06:40 01/15/17 06:48 01/15/17 11:26 Bedside Glucose 190 mg/dl 137 mg/dl 136 mg/dl White Blood Count 17.86 K/uL Red Blood Count 3.24 M/uL Hemoglobin 9.9 g/dL Hematocrit 31.0 % Mean Corpuscular Volume 95.7 fL Mean Corpuscular Hemoglobin 30.6 pg Mean Corpuscular Hemoglobin Concent 31.9 g/dl Platelet Count 480 K/uL Mean Platelet Volume 9.1 fL Neutrophils (%) (Auto) 84.9 % Lymphocytes (%) (Auto) 6.0 % Monocytes (%) (Auto) 7.2 % Eosinophils (%) (Auto) 1.2 % Basophils (%) (Auto) 0.1 % Neutrophils # (Auto) 15.18 K/uL Lymphocytes # (Auto) 1.07 K/uL Monocytes # (Auto) 1.28 K/uL Eosinophils # (Auto) 0.21 K/uL Basophils # (Auto) 0.01 K/uL RDW Standard Deviation 54.9 fL RDW Coefficient of Variation 15.9 % Immature Granulocyte % (Auto) 0.6 % Immature Granulocyte # (Auto) 0.11 K/uL Prothrombin Time 22.0 SECONDS Prothromb Time International Ratio 2.0 Sodium Level 144 mmol/L Potassium Level 4.3 mmol/L Chloride Level 108 mmol/L Carbon Dioxide Level 30 mmol/L Anion Gap 6.0 mmol/L Blood Urea Nitrogen 43 mg/dl Creatinine 1.60 mg/dl Est Creatinine Clear Calc Drug Dose 48.6 ml/min Estimated GFR () 46.1 Estimated GFR (Non- 39.8 BUN/Creatinine Ratio 26.6 Random Glucose 125 mg/dl Calcium Level 8.5 mg/dl Magnesium Level 2.2 mg/dl Assessment and Plan OSTEOMYELITIS LEFT 3rd TOE Ortho on board - suggests amputation when medically stable discussed with pulmonary and renal, he is not medically optimized for surgery currently Initial blood cultures with MRSA Repeat BCs X 2 negative for growth PICC line placed in left upper arm 01/12/2017 ID consulted - appreciate Dr. Rabago's input - suggests IV abx for at least 6 weeks, Vancomycin will follow up with wound care wait for answer on [facility] tomorrow BRADYCARDIA Carvedilol held 01/13/17 p.m. HR in 60-70's, will continue to hold Coreg and monitor pulse ACUTE KIDNEY INJURY Nephrology consulted appreciate Dr. Dan's input Baseline creatinine 1.6-2.0 Currently with good urine output via [facility] BUN 43/creatinine 1.6 today Follow serial labs diuresing with Lasix 40mg PO BID ACUTE DIASTOLIC HF: improving, diuresing with Lasix 40mg PO BID Cr holding at 1.6 no pulmonary edema, all peripheral in legs CAD S/P CABG, AVR Bradycardic - hold carvidolol and follow on telemetry TTE negative for endocarditis No chest pain [place] Continue patient's home CPAP ATRIAL FIBRILLATION INR 2.0, resume Coumadin at 5mg daily, next Sunday can go back to 2.5mg on Sunday's stop Lovenox today DVT PROPHYLAXIS Enoxaparin - now on Coumadin Continued [facility] stay due to: multiple IV medications needed, other (awaiting approval for [facility]) Discharge planning: rehab hospital
[2017-01-15] MEDS: WARFARIN SOD 5 MG TAB PO SCH (17:31)
--- NOTE | 2017-01-15 20:48 | Infectious Disease Progress Nt ---
Progress Note Date of Service January 15, 2017. Subjective Pt evaluation today including: conversation w/ patient, physical exam, chart review, lab review, review of studies, conversation w/ oncology consultant, review of inpatient medication list Patient offers no new complaints today. Breathing has improved. No fever. Continues tolerating antibiotics without apparent difficulty. Surgery has been deferred. All Other Systems: Reviewed and Negative Medications Current Inpatient Medications Medications (Trade) Dose Ordered Sig/Sukhwinder Route Start Time Stop Time Status Last Admin Dose Admin Acetaminophen (Tylenol Tab) 650 mg Q4H PRN PO 01/02/17 09:30 02/01/17 09:29 01/15/17 18:14 650 MG Al Hydrox/Mg Hydrox/Simethicone (Maalox Max Susp) 15 ml Q4H PRN PO 01/02/17 09:30 02/01/17 09:29 Magnesium Hydroxide (Milk Of Magnesia Susp) 30 ml Q12H PRN PO 01/02/17 09:30 02/01/17 09:29 01/06/17 08:35 30 ML Ondansetron HCl (Zofran Inj) 4 mg Q6H PRN IV 01/02/17 09:30 02/01/17 09:29 Nitroglycerin (Nitrostat Tab) 0.4 mg UD PRN SL 01/02/17 09:30 02/01/17 09:29 Polyethylene (Miralax Powder Packet) 17 gm DAILY PRN PO 01/02/17 09:30 02/01/17 09:29 01/06/17 08:35 17 GM Albuterol/ Ipratropium (Duoneb) 3 ml QIDR INH 01/02/17 12:00 02/01/17 11:59 01/15/17 19:31 3 ML Levothyroxine Sodium (Synthroid Tab) 100 mcg DAILYBB PO 01/03/17 06:00 02/02/17 08:59 01/15/17 05:53 100 MCG Tamsulosin HCl (Flomax Cap) 0.4 mg DAILY PO 01/03/17 09:00 02/02/17 08:59 01/15/17 08:06 0.4 MG Nystatin (Mycostatin Powder) 1 appln BID EXT 01/02/17 21:00 02/01/17 20:59 01/15/17 19:46 1 APPLN Morphine Sulfate (MoRPHine SULFATE INJ) 2 mg Q4H PRN IV 01/02/17 09:30 01/16/17 09:29 01/05/17 08:01 2 MG Morphine Sulfate (MoRPHine SULFATE INJ) 4 mg Q4H PRN IV 01/02/17 09:30 01/16/17 09:29 01/06/17 20:56 4 MG Oxycodone HCl (Roxicodone Immediate Rel Tab) 10 mg Q6 PRN PO 01/02/17 09:30 01/16/17 09:29 01/09/17 18:10 10 MG Insulin Aspart (novoLOG ASPART) SLIDING SCALE PARAMETER ACHS SC 01/02/17 11:00 02/01/17 10:59 01/15/17 17:34 7 UNITS Insulin Glargine (Lantus Solostar Pen) 20 unit BID SC 01/02/17 21:00 02/01/17 20:59 01/15/17 08:04 20 UNIT Vancomycin HCl (Consult) 1 ea UD PRN N/A 01/02/17 10:00 02/01/17 09:59 Miconazole Nitrate (Desenex Powder) 1 appln DAILY EXT 01/03/17 09:00 02/02/17 08:59 01/15/17 08:05 1 APPLN Multi-Ingredient Ointment (Eucerin Unscented Cr) 1 appln DAILY EXT 01/03/17 09:00 02/02/17 08:59 01/15/17 08:05 1 APPLN Glucose (Glucose 40% Gel) 15-30 GRAMS 15 GRAMS... UD PRN PO 01/02/17 13:15 02/01/17 13:14 Glucose (Glucose Chew Tab) 4-8 Tablets 4 Tabl... UD PRN PO 01/02/17 13:15 02/01/17 13:14 Dextrose (Dextrose 50% 50ML Syringe) 25-50ML OF 50% DW IV FOR... UD PRN IV 01/02/17 13:15 02/01/17 13:14 Glucagon (Glucagon Inj) 1 mg UD PRN SQ 01/02/17 13:15 02/01/17 13:14 Guaifenesin (Mucinex Contr Rel Tab) 1,200 mg Q12 PO 01/04/17 21:00 5/20/17 20:59 01/15/17 19:46 1,200 MG Albuterol/ Ipratropium (Duoneb) 3 ml Q4H PRN INH 01/09/17 04:30 02/08/17 04:29 Carvedilol (Coreg Tab) 3.125 mg BID PO 01/10/17 10:00 02/09/17 09:59 Future Hold 01/12/17 21:43 3.125 MG Furosemide 40 mg 40 mg BID17 PO 01/11/17 17:00 02/10/17 16:59 01/15/17 17:32 40 MG Vancomycin HCl/ Sodium Chloride (Vancomycin Inj/ Nss 250ml) 277 ml @ 125 mls/hr DAILY@1200 IV 01/13/17 12:00 01/27/17 11:59 01/15/17 12:12 125 MLS/HR Warfarin Sodium (Coumadin Tab) 5 mg DAILY@16 PO 01/14/17 16:00 02/13/17 15:59 01/15/17 17:31 5 MG Sodium Chloride ([place] Nasal [place]) 1 sprays PRN PRN NA 01/15/17 13:00 02/14/17 12:59 Objective Vital Signs Date Time Temp Pulse Resp B/P Pulse Ox O2 Delivery O2 Flow Rate FiO2 01/15/17 20:00 Room Air 01/15/17 19:31 71 18 92 Room Air 01/15/17 19:17 36.9 61 16 109/60 94 Room Air 01/15/17 16:00 Room Air 01/15/17 15:36 36.8 70 16 137/62 93 Room Air 01/15/17 15:18 61 18 94 Room Air 01/15/17 13:19 37.1 51 18 96 Room Air 01/15/17 12:00 Room Air 01/15/17 11:18 51 18 96 Room Air 01/15/17 11:07 37.1 54 22 132/62 95 Room Air 01/15/17 08:00 Nasal Cannula 2.0 CPAP 01/15/17 07:25 36.9 76 20 168/74 99 Nasal Cannula 2.0 01/15/17 07:04 57 18 98 Nasal Cannula 2.0 01/15/17 04:03 CPAP 01/15/17 04:00 36.3 63 20 141/77 96 CPAP 01/14/17 23:59 CPAP 01/14/17 23:42 36.9 57 20 145/70 99 CPAP Physical Exam General Appearance: WD/WN, no apparent distress Eyes: normal inspection, EOMI, sclerae normal ENT: normal ENT inspection, pharynx normal Neck: supple, no adenopathy, trachea midline Respiratory/Chest: chest non-tender, no respiratory distress, no accessory muscle use, + rales Cardiovascular: no gallop, no murmur, + irregularly irregular Abdomen: normal bowel sounds, non tender, soft, no organomegaly Extremities: non-tender, no calf tenderness Neurologic/Psychiatric: alert, oriented x 3 Skin: normal color, + pertinent finding ( No change left foot) Lymphatic: no adenopathy Laboratory Results Last 24 Hours Test 01/15/17 06:40 01/15/17 06:48 01/15/17 11:26 01/15/17 20:11 White Blood Count 17.86 K/uL Red Blood Count 3.24 M/uL Hemoglobin 9.9 g/dL Hematocrit 31.0 % Mean Corpuscular Volume 95.7 fL Mean Corpuscular Hemoglobin 30.6 pg Mean Corpuscular Hemoglobin Concent 31.9 g/dl Platelet Count 480 K/uL Mean Platelet Volume 9.1 fL Neutrophils (%) (Auto) 84.9 % Lymphocytes (%) (Auto) 6.0 % Monocytes (%) (Auto) 7.2 % Eosinophils (%) (Auto) 1.2 % Basophils (%) (Auto) 0.1 % Neutrophils # (Auto) 15.18 K/uL Lymphocytes # (Auto) 1.07 K/uL Monocytes # (Auto) 1.28 K/uL Eosinophils # (Auto) 0.21 K/uL Basophils # (Auto) 0.01 K/uL RDW Standard Deviation 54.9 fL RDW Coefficient of Variation 15.9 % Immature Granulocyte % (Auto) 0.6 % Immature Granulocyte # (Auto) 0.11 K/uL Prothrombin Time 22.0 SECONDS Prothromb Time International Ratio 2.0 Sodium Level 144 mmol/L Potassium Level 4.3 mmol/L Chloride Level 108 mmol/L Carbon Dioxide Level 30 mmol/L Anion Gap 6.0 mmol/L Blood Urea Nitrogen 43 mg/dl Creatinine 1.60 mg/dl Est Creatinine Clear Calc Drug Dose 48.6 ml/min Estimated GFR () 46.1 Estimated GFR (Non- 39.8 BUN/Creatinine Ratio 26.6 Random Glucose 125 mg/dl Calcium Level 8.5 mg/dl Magnesium Level 2.2 mg/dl Bedside Glucose 137 mg/dl 136 mg/dl 224 mg/dl Assessment and Plan 81 yo male with MRSA sepsis from left foot and leg infection associated with DM with neuropathy and with CARLO. Vancomycin appropriate therapy for now, and given adequate levels at Q 24 hour dosing, this should provide appropriate coverage pending decision regarding further surgery. Will plan on 6 weeks of IV antibiotics. Will discuss with all involved and continue to follow.q
[2017-01-16] VITALS (8 sets, daily range): BP systolic 94–167; BP diastolic 43–74; PULSE 57–72; TEMP 36.5–37.6; O2SAT 90–95
[2017-01-16 05:28] LABS: INR 1.9 (0.9-1.1); PROTHROMBIN TIME (PATIENT) 21.4 SECONDS (9.0-12.0)
[2017-01-16] MEDS: LEVOTHYROXINE 100 MCG TAB PO SCH (05:45)
[2017-01-16] MEDS: ACETAMINOPHEN 325 MG TAB PO PRN ×2 (06:34→20:58)
[2017-01-16] MEDS: ALBUT/IPRATROP 3MG/0.5MG NEB 3 ML VIAL INH SCH ×4 (07:11→19:51)
[2017-01-16] MEDS: NYSTATIN POWDER 15GM BTL EXT SCH ×2 (08:24→20:52)
[2017-01-16] MEDS: EUCERIN CR 120 GM JAR EXT SCH (08:24)
[2017-01-16] MEDS: MICONAZOLE NITRATE POWDER 43 GM EXT SCH (08:24)
[2017-01-16] MEDS: FUROSEMIDE 40 MG TAB PO SCH (08:25)
[2017-01-16] MEDS: TAMSULOSIN HCL 0.4 MG CAP PO SCH (08:25)
[2017-01-16] MEDS: GUAIFENESIN 600 MG TABCR PO SCH ×2 (08:25→20:53)
[2017-01-16] MEDS: INSULIN ASPART 100 UNITS/ML 3 ML PEN SC SCH ×4 (08:27→20:56)
[2017-01-16] MEDS: INSULIN GLARGINE SOLOSTAR 100 UNITS/ML 3 ML PEN SC SCH ×2 (08:27→20:56)
--- NOTE | 2017-01-16 10:18 | Nephrology Progress Note ---
Nephrology Progress Note Date of Service January 16, 2017. Chief Complaint CARLO/CKD Subjective Mr. Avery was seen and evaluated while ambulating in the [place] this morning. His activity tolerance remains limited. He reports dyspnea on exertion. No chest pain or palpitations. No fevers or chills. He reports 2 loose bowel movements since yesterday. There was some urgency associated with these. Overall, he continues to feel well. He remains hopeful that he can leave the hospital. He denies any lightheadedness of dizziness. Review of Systems A complete review of systems was performed. Pertinent positives are noted above. All other systems are negative. Vital Signs Last 8 Hrs Date Time Temp Pulse Resp B/P Pulse Ox O2 Delivery O2 Flow Rate FiO2 01/16/17 08:10 37.0 72 22 95/45 93 Room Air 01/16/17 08:00 Room Air 01/16/17 07:11 64 18 93 Room Air 01/16/17 04:00 Room Air 01/16/17 03:28 37.1 57 20 147/70 94 CPAP I & O 24-Hour Column 01/16/17 07:59 Intake Total 1150 ml Output Total 1200 ml Balance -50 ml Last Recorded Weight Weight (Kilograms): 131.400 Physical Exam General Appearance: no apparent distress, + obese Head: normocephalic, atraumatic Eyes: normal inspection, sclerae normal ENT: normal ENT inspection, pharynx normal Neck: supple Respiratory/Chest: lungs clear, no respiratory distress, no accessory muscle use Cardiovascular: regular rate, rhythm, no murmur Abdomen/GI: non tender, soft Extremities/Musculoskelatal: normal inspection, no pedal edema Neurologic/Psych: alert, oriented x 3 Family History Negative for CKD / ESRD Social History Marital Status: Occupation: retired Retired. Originally from [email or web address] [place]. 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 Never a smoker Laboratory Results Past 24 Hours Test 01/15/17 11:26 01/15/17 20:11 01/16/17 04:59 01/16/17 06:39 Bedside Glucose 136 mg/dl (70-99) 224 mg/dl (70-99) 120 mg/dl (70-99) Prothrombin Time 21.4 SECONDS (9.0-12.0) Prothromb Time International Ratio 1.9 (0.9-1.1) Allergies Coded Allergies: Chlorpheniramine (Unverified Allergy, Unknown, ., 01/02/17) Phenylpropanolamine (Unverified Allergy, Unknown, ., 01/02/17) Medications Current Inpatient Medications Medications (Trade) Dose Ordered Sig/Sukhwinder Route Start Time Stop Time Status Last Admin Dose Admin Acetaminophen (Tylenol Tab) 650 mg Q4H PRN PO 01/02/17 09:30 02/01/17 09:29 01/16/17 06:34 650 MG Al Hydrox/Mg Hydrox/Simethicone (Maalox Max Susp) 15 ml Q4H PRN PO 01/02/17 09:30 02/01/17 09:29 Magnesium Hydroxide (Milk Of Magnesia Susp) 30 ml Q12H PRN PO 01/02/17 09:30 02/01/17 09:29 01/06/17 08:35 30 ML Ondansetron HCl (Zofran Inj) 4 mg Q6H PRN IV 01/02/17 09:30 02/01/17 09:29 Nitroglycerin (Nitrostat Tab) 0.4 mg UD PRN SL 01/02/17 09:30 02/01/17 09:29 Polyethylene (Miralax Powder Packet) 17 gm DAILY PRN PO 01/02/17 09:30 02/01/17 09:29 01/06/17 08:35 17 GM Albuterol/ Ipratropium (Duoneb) 3 ml QIDR INH 01/02/17 12:00 02/01/17 11:59 01/16/17 07:11 3 ML Levothyroxine Sodium (Synthroid Tab) 100 mcg DAILYBB PO 01/03/17 06:00 02/02/17 08:59 01/16/17 05:45 100 MCG Tamsulosin HCl (Flomax Cap) 0.4 mg DAILY PO 01/03/17 09:00 02/02/17 08:59 01/16/17 08:25 0.4 MG Nystatin (Mycostatin Powder) 1 appln BID EXT 01/02/17 21:00 02/01/17 20:59 01/16/17 08:24 1 APPLN Insulin Aspart (novoLOG ASPART) SLIDING SCALE PARAMETER ACHS SC 01/02/17 11:00 02/01/17 10:59 01/16/17 08:27 3 UNITS Insulin Glargine (Lantus Solostar Pen) 20 unit BID SC 01/02/17 21:00 02/01/17 20:59 01/16/17 08:27 20 UNIT Vancomycin HCl (Consult) 1 ea UD PRN N/A 01/02/17 10:00 02/01/17 09:59 Miconazole Nitrate (Desenex Powder) 1 appln DAILY EXT 01/03/17 09:00 02/02/17 08:59 01/16/17 08:24 1 APPLN Multi-Ingredient Ointment (Eucerin Unscented Cr) 1 appln DAILY EXT 01/03/17 09:00 02/02/17 08:59 01/16/17 08:24 1 APPLN Glucose (Glucose 40% Gel) 15-30 GRAMS 15 GRAMS... UD PRN PO 01/02/17 13:15 02/01/17 13:14 Glucose (Glucose Chew Tab) 4-8 Tablets 4 Tabl... UD PRN PO 01/02/17 13:15 02/01/17 13:14 Dextrose (Dextrose 50% 50ML Syringe) 25-50ML OF 50% DW IV FOR... UD PRN IV 01/02/17 13:15 02/01/17 13:14 Glucagon (Glucagon Inj) 1 mg UD PRN SQ 01/02/17 13:15 02/01/17 13:14 Guaifenesin (Mucinex Contr Rel Tab) 1,200 mg Q12 PO 01/04/17 21:00 02/03/17 20:59 01/16/17 08:25 1,200 MG Albuterol/ Ipratropium (Duoneb) 3 ml Q4H PRN INH 01/09/17 04:30 02/08/17 04:29 Carvedilol (Coreg Tab) 3.125 mg BID PO 01/10/17 10:00 02/09/17 09:59 Future Hold 01/12/17 21:43 3.125 MG Furosemide 40 mg 40 mg BID17 PO 01/11/17 17:00 02/10/17 16:59 01/16/17 08:25 40 MG Vancomycin HCl/ Sodium Chloride (Vancomycin Inj/ Nss 250ml) 277 ml @ 125 mls/hr DAILY@1200 IV 01/13/17 12:00 01/27/17 11:59 01/15/17 12:12 125 MLS/HR Warfarin Sodium (Coumadin Tab) 5 mg DAILY@16 PO 01/14/17 16:00 02/13/17 15:59 01/15/17 17:31 5 MG Sodium Chloride ([place] Nasal [place]) 1 sprays PRN PRN NA 01/15/17 13:00 02/14/17 12:59 Impression (1) Acute kidney injury (2) Stage 3 chronic kidney disease (3) Cellulitis of left lower extremity (4) A-fib (5) Diabetes (6) Pulmonary hypertension Mr. Avery is an 81 year-old who was admitted to [facility] with LLE cellulitis, sepsis, hypotension and acute on chronic kidney injury. He has underlying diabetic nephropathy. His baseline creatinine has been 1.6-2.0. 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 He developed hematuria following Mckeon catheter placement which is resolving. UA notable for granular casts consistent with ATN. Proteinuria is present c/w diabetic nephropathy. Amputation was delayed due to acute on chronic diastolic CHF. Volume continues improving. Renal function improved to baseline and remains stable. Mr. Avery is planning to going to [facility] for rehab. Potential discharge today. Carvedilol has been held due to acute on chronic bradycardia. TTE was notable for LVEF 55% with inferior apical hypokinesis/akinesis. Mild concentric LVH was noted. There was severe pulmonary hypertension (PASP 67). PMH - AODM, BMI > 40, HTN, hyperlipidemia, ASCVD s/p CABG w/ AVR, chronic atrial fibrillation, EVENS, gout, kidney stones and recurrent UTI. Recommendations -- Continue furosemide 40 mg BID. If patient is truly having diarrhea, hold afternoon dose. Goal is to maintain slightly negative fluid balance -- Repeat metabolic profile tomorrow AM -- Follow up in the nephrology clinic within 1-2 weeks of discharge from [facility] ( call [phone] to schedule) -- Blood pressure acceptable while holding carvedilol and losartan -- Follow up with orthopedics once clinically stable -- Infectious disease follow up scheduled -- Medications appropriate for renal function
[2017-01-16] MEDS: VANCOMYCIN INJ 1,350 MG in SODIUM CHLORIDE 0.9% 250ML 250 ML IV SCH (12:19)
[2017-01-16] MEDS ORDERED: NURSING VERBAL MED ORDER ONE (12:45)
--- NOTE | 2017-01-16 14:03 | Pharmacy Progress Note ---
Pharmacy Antibiotic Prog Note Date of Service January 16, 2017. Subjective The patient is currently receiving Vancomycin 1350 mg (~10mg/kg) IV every 24 hours for sepsis/diabetic foot infection in an obese patient (BMI greater than 35kg/m2; BMI= 42.8kg/m2). The patient is currently on day # 15/ of Vancomycin IV therapy. Objective Height (Feet): 5 Height (Inches): 9.00 Weight (Kilograms): 131.400 Levels: Item Value Date Time Vancomycin Level Trough 20.5 mcg/ml 01/16/17 1200 Vancomycin Level Trough 21.5 mcg/ml 01/12/17 1326 Micro Results: Item Value Date Time Blood Culture - Final Complete 01/05/17 1132 Blood NO GROWTH Blood Culture - Final Complete 01/05/17 1128 Blood NO GROWTH Urine Culture - Final Complete 01/02/17 1211 Urine,Catheterized NO GROWTH - LESS THAN 1,000 COLONIES/ML Blood Culture - Final Complete 01/02/17 0745 Blood Staphylococcus Aureus Blood Culture - Final Complete 01/02/17 0740 Blood Staphylococcus Aureus BLD CULT Final 01/08/17-0718 Organism 1 STAPHYLOCOCCUS AUREUS SENS SENSITIVITY TO FOLLOW SENSITIVITY RESULT INDICATES A METHICILLIN RESISTANT STAPH. AUREUS. PHONED TO RICHARD ALEXANDRA ON 01/04/17 AT 0815 BY Blanca Puentes. Results were verbalized back to GINA. RESULTS WERE ALSO CALLED TO [facility] INFECTION CONTROL ANSWERING MACHINE ON 01/04/17 BY GINA. Phoned Positive Blood Culture Gram Stain Report to CHRISTIANO EL on 01/02/17 At 0373 By SHARMAINE. Results were verbalized back to SHARMAINE. 1. STAPHYLOCOCCUS AUREUS Target Route Dose RX AB Cost M.I.C. IQ ------ ----- ------ -- ------ -------- - ------ TRIMET/SULFA S <=0.5/ 9.5 * OXACILLIN R * >2 VANCOMYCIN S 1 ERYTHROMYCIN R >4 TETRACYCLINE S <=4 CLINDAMYCIN R <=0.5 DAPTOMYCIN S <=0.5 RIFAMPIN S <=1 S = SENSITIVE I = INTERMEDIATE R = RESISTANT Recent Pertinent Medications Item Value Date Time Piperacillin Sod/ 4.5 gm 01/02/17 0752 Tazobactam Sod NOW STAT/IV 01/02/17 0835 (Zosyn Iv) Piperacillin Sod/ 120 ml @ 30 mls/hr 01/02/17 1600 Tazobactam Sod Q8H/IV 01/03/17 2330 4.5 gm/Dextrose Vancomycin HCl 540 ml @ 200 mls/hr 01/02/17 1000 2000 mg/Sodium TODAY@1000 ONCE/IV 01/02/17 1029 Chloride Vancomycin HCl 540 ml @ 200 mls/hr 01/03/17 1500 2000 mg/Sodium TODAY@1500 ONCE/IV 01/03/17 1522 Chloride Vancomycin HCl 270 ml @ 125 mls/hr 01/04/17 1500 1000 mg/Sodium TODAY@1500 ONCE/IV 01/04/17 1522 Chloride Vancomycin HCl 530 ml @ 200 mls/hr 01/05/17 1100 1500 mg/Sodium NOW ONCE/IV 01/05/17 1135 Chloride Vancomycin HCl 530 ml @ 200 mls/hr 01/06/17 1200 1500 mg/Sodium TODAY@1200/IV 01/06/17 1227 Chloride Vancomycin HCl 530 ml @ 200 mls/hr 01/07/17 1300 1500 mg/Sodium DAILY@1200/IV 01/12/17 1541 Chloride Vancomycin HCl 277 ml @ 125 mls/hr 01/13/17 1200 1350 mg/Sodium DAILY@1200/IV 01/16/17 1219 Chloride Assessment & Plan Pharmacy has been consulted to dose and monitor Vancomycin for extended therapy (~6 weeks) for the treatment of sepsis / diabetic foot infection in an obese patient (BMI greater than 35kg/m2; BMI= 42.8kg/m2). Vancomycin trough level of 20.5mcg/mL is: slightly Supratherapeutic. Change to Vancomycin 1200 mg (~9mg/kg) IV every 24 hours. * Dose decreased by ~12% in order to decrease serum concentrations by ~12% and reach therapeutic levels. * Goal trough level estimate: between 15 - 20 mcg/mL. * Trough level has been ordered for: ~30 minutes before the 4th dose when steady state Vancomycin serum concentrations should be achieved. This is done to ensure Vancomycin therapeutic concentrations without causing Vancomycin accumulation and toxicity. Pharmacy will continue to follow and will adjust dose/frequency as necessary. Thank you
[2017-01-16] MEDS ORDERED: WARFARIN SOD 5 MG TAB PO SCH (16:00)
[2017-01-16] MEDS: WARFARIN SOD 5 MG TAB PO SCH (16:32)
[2017-01-17 03:32] VITALS: BP 129/61; PULSE 64; TEMP 37.1; O2SAT 93
[2017-01-17] MEDS: LEVOTHYROXINE 100 MCG TAB PO SCH (05:54)
[2017-01-17 06:22] LABS: BASO % 0.2 %; BASO ABS # 0.02 K/uL (0-0.2); COMPLETE YES; EOS % 1.7 %; HEMATOCRIT 30.4 % (42-52); IG% 0.8 %; LYMPH ABS # 0.83 K/uL (1.2-3.4); MEAN CELL VOLUME 95.9 fL (80-100); MEAN CORPUSCULAR HGB CONC 31.3 g/dl (32-36); MONO % 10.6 %; NEUT % 79.7 %; PLATELET COUNT 410 K/uL (130-400); RED BLOOD COUNT 3.17 M/uL (4.7-6.1); WHITE BLOOD COUNT 11.87 K/uL (4.8-10.8)
[2017-01-17 06:28] LABS: INR 2.4 (0.9-1.1); PROTHROMBIN TIME (PATIENT) 26.5 SECONDS (9.0-12.0)
[2017-01-17 06:52] LABS: BUN/CREATININE RATIO 22.1 (10-20); CALCIUM 8.5 mg/dl (8.5-10.1); CREATININE 1.6 mg/dl (0.60-1.40); POTASSIUM 4.3 mmol/L (3.5-5.1)
[2017-01-17 06:53] LABS: PHOSPHORUS 2.6 mg/dl (2.5-4.9)
[2017-01-17 07:17] VITALS: PULSE 86; O2SAT 93
[2017-01-17] MEDS: ALBUT/IPRATROP 3MG/0.5MG NEB 3 ML VIAL INH SCH ×2 (07:17→11:25)
[2017-01-17 07:31] VITALS: BP 151/67; PULSE 73; TEMP 36.7; O2SAT 94
--- NOTE | 2017-01-17 07:31 | Progress Note ---
Subjective Date of Service: January 16, 2017. Subjective Pt evaluation today including: conversation w/ patient, conversation w/ family , physical exam, lab review, conversation w/ sr. consultant, review of inpatient medication list Pain: no pain PO Intake: adequate Voiding: no voiding problems patient was upset and disappointed about not being approved for discharge to rehab, felt that he was not stable? long discussion with him that we would perform peer to peer on 01/17 at 10am plan to be discharged on 01/17 either to rehab or home Problem List Medical Problems: (1) Cellulitis of left lower extremity Status: Acute (2) Sepsis Status: Acute Review of Systems Constitutional: + fatigue, + weakness Cardiac: + edema (improving) Musculoskeletal: + joint pain (foot) All Other Systems: Reviewed and Negative Medications Current Inpatient Medications Medications (Trade) Dose Ordered Sig/Sukhwinder Route Start Time Stop Time Status Last Admin Dose Admin Acetaminophen (Tylenol Tab) 650 mg Q4H PRN PO 01/02/17 09:30 02/01/17 09:29 01/16/17 06:34 650 MG Al Hydrox/Mg Hydrox/Simethicone (Maalox Max Susp) 15 ml Q4H PRN PO 01/02/17 09:30 02/01/17 09:29 Magnesium Hydroxide (Milk Of Magnesia Susp) 30 ml Q12H PRN PO 01/02/17 09:30 02/01/17 09:29 01/06/17 08:35 30 ML Ondansetron HCl (Zofran Inj) 4 mg Q6H PRN IV 01/02/17 09:30 02/01/17 09:29 Nitroglycerin (Nitrostat Tab) 0.4 mg UD PRN SL 01/02/17 09:30 02/01/17 09:29 Polyethylene (Miralax Powder Packet) 17 gm DAILY PRN PO 01/02/17 09:30 02/01/17 09:29 01/06/17 08:35 17 GM Albuterol/ Ipratropium (Duoneb) 3 ml QIDR INH 01/02/17 12:00 02/01/17 11:59 01/16/17 11:28 3 ML Levothyroxine Sodium (Synthroid Tab) 100 mcg DAILYBB PO 01/03/17 06:00 02/02/17 08:59 01/16/17 05:45 100 MCG Tamsulosin HCl (Flomax Cap) 0.4 mg DAILY PO 01/03/17 09:00 02/02/17 08:59 01/16/17 08:25 0.4 MG Nystatin (Mycostatin Powder) 1 appln BID EXT 01/02/17 21:00 02/01/17 20:59 01/16/17 08:24 1 APPLN Insulin Aspart (novoLOG ASPART) SLIDING SCALE PARAMETER ACHS SC 01/02/17 11:00 02/01/17 10:59 01/16/17 12:32 5 UNITS Insulin Glargine (Lantus Solostar Pen) 20 unit BID SC 01/02/17 21:00 02/01/17 20:59 01/16/17 08:27 20 UNIT Vancomycin HCl (Consult) 1 ea UD PRN N/A 01/02/17 10:00 02/01/17 09:59 Miconazole Nitrate (Desenex Powder) 1 appln DAILY EXT 01/03/17 09:00 02/02/17 08:59 01/16/17 08:24 1 APPLN Multi-Ingredient Ointment (Eucerin Unscented Cr) 1 appln DAILY EXT 01/03/17 09:00 02/02/17 08:59 01/16/17 08:24 1 APPLN Glucose (Glucose 40% Gel) 15-30 GRAMS 15 GRAMS... UD PRN PO 01/02/17 13:15 02/01/17 13:14 Glucose (Glucose Chew Tab) 4-8 Tablets 4 Tabl... UD PRN PO 01/02/17 13:15 02/01/17 13:14 Dextrose (Dextrose 50% 50ML Syringe) 25-50ML OF 50% DW IV FOR... UD PRN IV 01/02/17 13:15 02/01/17 13:14 Glucagon (Glucagon Inj) 1 mg UD PRN SQ 01/02/17 13:15 02/01/17 13:14 Guaifenesin (Mucinex Contr Rel Tab) 1,200 mg Q12 PO 01/04/17 21:00 02/03/17 20:59 01/16/17 08:25 1,200 MG Albuterol/ Ipratropium (Duoneb) 3 ml Q4H PRN INH 01/09/17 04:30 02/08/17 04:29 Carvedilol (Coreg Tab) 3.125 mg BID PO 01/10/17 10:00 02/09/17 09:59 Future Hold 01/12/17 21:43 3.125 MG Furosemide (Lasix Tab) 40 mg BID17 PO 01/11/17 17:00 02/10/17 16:59 01/16/17 08:25 40 MG Warfarin Sodium (Coumadin Tab) 5 mg DAILY@16 PO 01/14/17 16:00 02/13/17 15:59 01/16/17 16:32 5 MG Sodium Chloride ([place] Nasal [place]) 1 sprays PRN PRN NA 01/15/17 13:00 02/14/17 12:59 Heparin Sodium (Porcine) 5 ml 5 ml PRN PRN FLUSH 01/16/17 12:45 02/15/17 12:44 01/16/17 12:48 5 ML Vancomycin HCl/ Sodium Chloride (Vancomycin Inj/ Nss 250ml) 274 ml @ 125 mls/hr DAILY@1200 IV 01/17/17 12:00 01/27/17 11:59 Objective Vital Signs Date Time Temp Pulse Resp B/P Pulse Ox O2 Delivery O2 Flow Rate FiO2 01/16/17 16:00 Room Air 01/16/17 12:00 Room Air 01/16/17 11:28 64 18 94 Room Air 01/16/17 11:25 36.5 63 20 167/61 95 01/16/17 08:10 37.0 72 22 95/45 93 Room Air 01/16/17 08:00 Room Air 01/16/17 07:11 64 18 93 Room Air 01/16/17 04:00 Room Air 01/16/17 03:28 37.1 57 20 147/70 94 CPAP 01/15/17 23:59 Room Air 01/15/17 23:51 36.8 58 20 120/60 95 CPAP 01/15/17 20:00 Room Air 01/15/17 19:31 71 18 92 Room Air 01/15/17 19:17 36.9 61 16 109/60 94 Room Air Physical Exam General Appearance: no apparent distress, + obese Eyes: normal inspection, EOMI, sclerae normal ENT: normal ENT inspection, hearing grossly normal, pharynx normal Neck: supple, no adenopathy, no JVD, trachea midline Respiratory/Chest: chest non-tender, lungs clear, normal breath sounds, no respiratory distress, no accessory muscle use Cardiovascular: regular rate, rhythm, no gallop, no JVD, no murmur Abdomen: normal bowel sounds, non tender, soft, no organomegaly Extremities: normal range of motion, non-tender, normal inspection, no calf tenderness, pelvis stable, + pedal edema Neurologic/Psychiatric: 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 II-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 nml as tested, no motor/sensory deficits, alert, normal mood/affect, oriented x 3 Skin: normal color, warm/dry, no rash Lymphatic: no adenopathy Laboratory Results Last 24 Hours Test 01/15/17 20:11 01/16/17 04:59 01/16/17 06:39 01/16/17 11:17 Bedside Glucose 224 mg/dl 120 mg/dl 118 mg/dl Prothrombin Time 21.4 SECONDS Prothromb Time International Ratio 1.9 Test 01/16/17 12:00 01/16/17 16:13 Vancomycin Level Trough 20.5 mcg/ml Bedside Glucose 130 mg/dl Assessment and Plan OSTEOMYELITIS LEFT 3rd TOE Ortho on board - suggests amputation when medically stable discussed with pulmonary and renal, he is not medically optimized for surgery currently Initial blood cultures with MRSA Repeat BCs X 2 negative for growth PICC line placed in left upper arm 01/12/2017 ID consulted - appreciate Dr. Rabago's input - suggests IV abx for at least 6 weeks, Vancomycin 1200mg IV daily will follow up with wound care plan for discharge on 01/17 either to rehab which is preferred or to home with home health and IV antibiotics BRADYCARDIA Carvedilol held 01/13/17 p.m. HR in 60-70's, will continue to hold Coreg and monitor pulse ACUTE KIDNEY INJURY - resolved Nephrology consulted appreciate Dr. Dan's input Baseline creatinine 1.6-2.0 Cr again stable at 1.6 Follow serial labs diuresing with Lasix 40mg PO BID ACUTE DIASTOLIC HF: resolved, diuresed with Lasix 40mg PO BID Cr holding at 1.6 no pulmonary edema, all peripheral in legs CAD S/P CABG, AVR Bradycardic - hold carvidolol and follow on telemetry TTE negative for endocarditis No chest pain [place] Continue patient's home CPAP ATRIAL FIBRILLATION INR 2.4, resume Coumadin at 5mg daily and 2.5mg on Sunday's stopped Lovenox DVT PROPHYLAXIS Coumadin Continued [facility] stay due to: multiple IV medications needed, other (awaiting approval for [facility]) Discharge planning: rehab hospital
[2017-01-17] MEDS: GUAIFENESIN 600 MG TABCR PO SCH (08:05)
[2017-01-17] MEDS: TAMSULOSIN HCL 0.4 MG CAP PO SCH (08:05)
[2017-01-17] MEDS: NYSTATIN POWDER 15GM BTL EXT SCH (08:06)
[2017-01-17] MEDS: EUCERIN CR 120 GM JAR EXT SCH (08:07)
[2017-01-17] MEDS: MICONAZOLE NITRATE POWDER 43 GM EXT SCH (08:07)
[2017-01-17] MEDS: INSULIN GLARGINE SOLOSTAR 100 UNITS/ML 3 ML PEN SC SCH (08:14)
[2017-01-17] MEDS: INSULIN ASPART 100 UNITS/ML 3 ML PEN SC SCH ×2 (08:14→12:03)
[2017-01-17] MEDS ORDERED: FUROSEMIDE 40 MG TAB PO SCH (09:00)
--- NOTE | 2017-01-17 10:03 | Nephrology Progress Note ---
Nephrology Progress Note Date of Service January 17, 2017. Chief Complaint CARLO/CKD Subjective No acute events overnight. Mr. Avery feels that his functional status and strength are already starting to improve. Edema continues to improve. He reports less nocturia with a reduced dose of furosemide. Appetite is good. He denies shortness of breath. Review of Systems A complete review of systems was performed. Pertinent positives are noted above. All other systems are negative. Vital Signs Last 8 Hrs Date Time Temp Pulse Resp B/P Pulse Ox O2 Delivery O2 Flow Rate FiO2 01/17/17 08:00 Room Air 01/17/17 07:31 36.7 73 16 151/67 94 Room Air 01/17/17 07:17 86 18 93 Room Air 01/17/17 04:00 Room Air 01/17/17 03:32 37.1 64 20 129/61 93 Room Air I & O 24-Hour Column 01/17/17 08:00 Intake Total 1170 ml Output Total 2025 ml Balance -855 ml Last Recorded Weight Weight (Kilograms): 131.400 Physical Exam General Appearance: WD/WN, no apparent distress Head: normocephalic, atraumatic Eyes: normal inspection, sclerae normal ENT: normal ENT inspection, pharynx normal Neck: supple, no JVD Respiratory/Chest: lungs clear, no respiratory distress, no accessory muscle use, + decreased breath sounds Cardiovascular: regular rate, rhythm, no gallop Abdomen/GI: non tender, soft Extremities/Musculoskelatal: normal inspection, + pedal edema, + pertinent finding (PICC in place) Neurologic/Psych: alert, oriented x 3 Family History Negative for CKD / ESRD Social History Marital Status: Occupation: retired Retired. Originally from [employer]. 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 Never a smoker Laboratory Results Past 24 Hours 01/17/17 05:47 Red Blood Count 3.17, Mean Corpuscular Volume 95.9, Mean Corpuscular Hemoglobin 30.0, Mean Corpuscular Hemoglobin Concent 31.3, Mean Platelet Volume 9.0, Neutrophils (%) (Auto) 79.7, Lymphocytes (%) (Auto) 7.0, Monocytes (%) (Auto) 10.6, Eosinophils (%) (Auto) 1.7, Basophils (%) (Auto) 0.2, Neutrophils # (Auto ) 9.47, Lymphocytes # (Auto) 0.83, Monocytes # (Auto) 1.26, Eosinophils # (Auto ) 0.20, Basophils # (Auto) 0.02 01/17/17 05:47 Test 01/16/17 11:17 01/16/17 12:00 01/16/17 16:13 01/16/17 20:12 Bedside Glucose 118 mg/dl (70-99) 130 mg/dl (70-99) 172 mg/dl (70-99) Vancomycin Level Trough 20.5 mcg/ml (SEE COMMENT) Test 01/17/17 05:47 01/17/17 06:34 White Blood Count 11.87 K/uL (4.8-10.8) Red Blood Count 3.17 M/uL (4.7-6.1) Hemoglobin 9.5 g/dL (14.0-18.0) Hematocrit 30.4 % (42-52) Mean Corpuscular Volume 95.9 fL (80-100) Mean Corpuscular Hemoglobin 30.0 pg (25-34) Mean Corpuscular Hemoglobin Concent 31.3 g/dl (32-36) Platelet Count 410 K/uL (130-400) Mean Platelet Volume 9.0 fL (7.4-10.4) Neutrophils (%) (Auto) 79.7 % Lymphocytes (%) (Auto) 7.0 % Monocytes (%) (Auto) 10.6 % Eosinophils (%) (Auto) 1.7 % Basophils (%) (Auto) 0.2 % Neutrophils # (Auto) 9.47 K/uL (1.4-6.5) Lymphocytes # (Auto) 0.83 K/uL (1.2-3.4) Monocytes # (Auto) 1.26 K/uL (0.11-0.59) Eosinophils # (Auto) 0.20 K/uL (0-0.5) Basophils # (Auto) 0.02 K/uL (0-0.2) RDW Standard Deviation 55.4 fL (36.4-46.3) RDW Coefficient of Variation 16.1 % (11.5-14.5) Immature Granulocyte % (Auto) 0.8 % Immature Granulocyte # (Auto) 0.09 K/uL (0.00-0.02) Prothrombin Time 26.5 SECONDS (9.0-12.0) Prothromb Time International Ratio 2.4 (0.9-1.1) Anion Gap 6.0 mmol/L (3-11) Est Creatinine Clear Calc Drug Dose 48.6 ml/min Estimated GFR () 46.1 Estimated GFR (Non- 39.8 BUN/Creatinine Ratio 22.1 (10-20) Calcium Level 8.5 mg/dl (8.5-10.1) Phosphorus Level 2.6 mg/dl (2.5-4.9) Magnesium Level 2.0 mg/dl (1.8-2.4) Albumin 2.6 gm/dl (3.4-5.0) Bedside Glucose 109 mg/dl (70-99) Allergies Coded Allergies: Chlorpheniramine (Unverified Allergy, Unknown, ., 01/02/17) Phenylpropanolamine (Unverified Allergy, Unknown, ., 01/02/17) Medications Current Inpatient Medications Medications (Trade) Dose Ordered Sig/Sukhwinder Route Start Time Stop Time Status Last Admin Dose Admin Acetaminophen (Tylenol Tab) 650 mg Q4H PRN PO 01/02/17 09:30 02/01/17 09:29 01/16/17 20:58 650 MG Al Hydrox/Mg Hydrox/Simethicone (Maalox Max Susp) 15 ml Q4H PRN PO 01/02/17 09:30 02/01/17 09:29 Magnesium Hydroxide (Milk Of Magnesia Susp) 30 ml Q12H PRN PO 01/02/17 09:30 02/01/17 09:29 01/06/17 08:35 30 ML Ondansetron HCl (Zofran Inj) 4 mg Q6H PRN IV 01/02/17 09:30 02/01/17 09:29 Nitroglycerin (Nitrostat Tab) 0.4 mg UD PRN SL 01/02/17 09:30 02/01/17 09:29 Polyethylene (Miralax Powder Packet) 17 gm DAILY PRN PO 01/02/17 09:30 02/01/17 09:29 01/06/17 08:35 17 GM Albuterol/ Ipratropium (Duoneb) 3 ml QIDR INH 01/02/17 12:00 02/01/17 11:59 01/17/17 07:17 3 ML Levothyroxine Sodium (Synthroid Tab) 100 mcg DAILYBB PO 01/03/17 06:00 02/02/17 08:59 01/17/17 05:54 100 MCG Tamsulosin HCl (Flomax Cap) 0.4 mg DAILY PO 01/03/17 09:00 02/02/17 08:59 01/17/17 08:05 0.4 MG Nystatin (Mycostatin Powder) 1 appln BID EXT 01/02/17 21:00 02/01/17 20:59 01/17/17 08:06 1 APPLN Insulin Aspart (novoLOG ASPART) SLIDING SCALE PARAMETER ACHS SC 01/02/17 11:00 02/01/17 10:59 01/17/17 08:14 3 UNITS Insulin Glargine (Lantus Solostar Pen) 20 unit BID SC 01/02/17 21:00 02/01/17 20:59 01/17/17 08:14 20 UNIT Vancomycin HCl (Consult) 1 ea UD PRN N/A 01/02/17 10:00 02/01/17 09:59 Miconazole Nitrate (Desenex Powder) 1 appln DAILY EXT 01/03/17 09:00 02/02/17 08:59 01/17/17 08:07 1 APPLN Multi-Ingredient Ointment (Eucerin Unscented Cr) 1 appln DAILY EXT 01/03/17 09:00 02/02/17 08:59 01/17/17 08:07 1 APPLN Glucose (Glucose 40% Gel) 15-30 GRAMS 15 GRAMS... UD PRN PO 01/02/17 13:15 02/01/17 13:14 Glucose (Glucose Chew Tab) 4-8 Tablets 4 Tabl... UD PRN PO 01/02/17 13:15 02/01/17 13:14 Dextrose (Dextrose 50% 50ML Syringe) 25-50ML OF 50% DW IV FOR... UD PRN IV 01/02/17 13:15 02/01/17 13:14 Glucagon (Glucagon Inj) 1 mg UD PRN SQ 01/02/17 13:15 02/01/17 13:14 Guaifenesin (Mucinex Contr Rel Tab) 1,200 mg Q12 PO 01/04/17 21:00 02/03/17 20:59 5/3/17 08:05 1,200 MG Albuterol/ Ipratropium (Duoneb) 3 ml Q4H PRN INH 01/09/17 04:30 02/08/17 04:29 Carvedilol (Coreg Tab) 3.125 mg BID PO 01/10/17 10:00 02/09/17 09:59 Future Hold 01/12/17 21:43 3.125 MG Warfarin Sodium (Coumadin Tab) 5 mg DAILY@16 PO 01/14/17 16:00 02/13/17 15:59 01/16/17 16:32 5 MG Sodium Chloride ([place] Nasal Fannin) 1 sprays PRN PRN NA 01/15/17 13:00 02/14/17 12:59 Heparin Sodium (Porcine) 5 ml 5 ml PRN PRN FLUSH 01/16/17 12:45 02/15/17 12:44 01/16/17 12:48 5 ML Vancomycin HCl/ Sodium Chloride (Vancomycin Inj/ Nss 250ml) 274 ml @ 125 mls/hr DAILY@1200 IV 01/17/17 12:00 01/27/17 11:59 Furosemide (Lasix Tab) 40 mg QAM PO 01/17/17 09:00 02/16/17 08:59 01/17/17 08:05 40 MG Impression (1) Acute kidney injury (2) Stage 3 chronic kidney disease (3) Cellulitis of left lower extremity (4) A-fib (5) Diabetes (6) Pulmonary hypertension Mr. Avery is an 81 year-old who was admitted to [facility] with LLE cellulitis, sepsis, hypotension and acute on chronic kidney injury. He has underlying diabetic nephropathy. His baseline creatinine has been 1.6-2.0. 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 He developed hematuria following Mckeon catheter placement which is resolving. UA notable for granular casts consistent with ATN. Proteinuria is present c/w diabetic nephropathy. Amputation was delayed due to acute on chronic diastolic CHF. Volume continues improving. Renal function improved to baseline and remains stable. Mr. Avery is awaiting a [id number] regarding [facility] for rehab. Potential discharge today. He feels more comfortable going home at this time. Carvedilol has been held due to acute on chronic bradycardia. TTE was notable for LVEF 55% with inferior apical hypokinesis/akinesis. Mild concentric LVH was noted. There was severe pulmonary hypertension (PASP 67). PMH - AODM, BMI > 40, HTN, hyperlipidemia, ASCVD s/p CABG w/ AVR, chronic atrial fibrillation, EVENS, gout, kidney stones and recurrent UTI. Recommendations -- Continue furosemide 40 mg daily -- Repeat metabolic profile in 1 week (orders placed in outpatient EMR, if patient is discharged home) -- Follow up in the nephrology clinic within 2 weeks of discharge (I have asked my office staff to schedule a follow up appointment at Mr. Avery's request) -- Blood pressure acceptable while holding carvedilol and losartan -- Follow up with orthopedics once clinically stable -- Infectious disease follow up scheduled -- Medications appropriate for renal function
[2017-01-17 11:16] VITALS: BP 134/69; PULSE 66; TEMP 36.4; O2SAT 96
[2017-01-17 11:25] VITALS: PULSE 80; O2SAT 93
[2017-01-17] MEDS ORDERED: VANCOMYCIN INJ 1,200 MG in SODIUM CHLORIDE 0.9% 250ML 250 ML IV SCH (12:00)
[2017-01-17] MEDS ORDERED: LSX40 PO (12:07)
[2017-01-17] MEDS ORDERED: NF1094 IV (12:07)
[2017-01-17] MEDS ORDERED: NYSP EXT (12:07)
[2017-01-17] MEDS ORDERED: INSDGIPEN SC (12:07)
[2017-01-17] MEDS ORDERED: MCTP EXT (12:07)
[2017-01-17] MEDS ORDERED: ECRCR EXT (12:07)
--- NOTE | 2017-01-17 12:21 | Discharge Instructions ---
Discharge Instructions Date of Service January 17, 2017. Admission Reason for Admission: Osteomyelitis right 2nd and 3rd toes Discharge Discharge Diagnosis / Problem: Acute diastolic heart failure (resolved), CKD stage III, atrial fib Discharge Goals Goal(s): Decrease discomfort, Improve function, Improve disease control Activity Recommendations Activity Level: Assistance Required Therapies: Physical Therapy, Occupational Therapy Lifting Limitations: none Exercise/Sports Limitations: none, as tolerated Shower/Bathe: no limitations . Additional Information Patient informed of condition: Yes Advance Directives: No DNR: No Level of Care: Acute Rehab Communicable Disease: No Prognosis: Improving Oxygen at (LPM): no Mckeon Catheter: No Instructions / Follow-Up Instructions / Follow-Up Medications: please refer to list, several prior medications stopped and new medications ordered - VANCOMYCIN: 1200mg IV daily for 4 more weeks to complete 6 weeks total, please check a trough level on Monday 01/22 - LASIX: 40mg PO daily, please check a BMP on Friday 01/19 and then weekly - EUCERIN, DESONEX, NYSTATIN: all for topical treatment of skin folds and legs, continue for 2 weeks minimum - LANTUS: 20 units BID, this replaces his prior regimen of 75/25 BID Stopped medications: Coreg, Losartan, Metformin, Insulin 75/25 Osteomyelitis: evaluated by orthopedic surgery, ID as well as nephrology and pulmonology, felt that patient could try conservative care with IV Vancomycin for 6 weeks and wound care, opting to try to avoid amputation follow up with Infectious Disease in 2-3 weeks please check a Vancomycin trough on 01/22 and then every Sunday CKD: Cr stable and holding between 1.5 and 1.7, in the past his baseline has been as high as 2.0 continue Lasix 40mg daily to promote urine output, responded well inpatient check BMP on 01/19 and then every Sunday, results to Dr. Dan follow up with Dr. Dan at nephrology office in 2 weeks Acute diastolic HF: resolved on Lasix 40mg PO BID DM: should be on diabetic diet, Lantus 20 units BID and can utilize Novolog SS if needed while at rehab, Metformin stopped due to renal dysfunction FOLLOW UP* - physician at [facility] this week - ID in 2-3 weeks, Dr. Rabago or Diya Mock - Dr. Dan in 2 weeks - Dr. Harper one week after d/c from rehab Current Hospital Diet Patient's current hospital diet: Diabetes Type 2 Diet, Low Potassium Diet (2g K) Discharge Diet Recommended Diet: Diabetes Type 2 Diet, Low Potassium Diet (2g K) Procedures Procedures Performed: local wound debridement Pending Studies Studies pending at discharge: no Physician Orders On Transfer Dressing Changes: Treatment Plan: TO LEFT 2ND TOE and LEFT 3RD TOE, DORSAL AND MEDIAL ASPECTS- CLEANSE WITH SALINE. COVER WITH XEROFORM, 2X2 AND SECURE WITH KERLIX CHANGE DAILY. Additional Orders: Vancomycin trough level 01/22 and then weekly BMP on 01/19 and then weekly POLST Discussion: Not Applicable Laboratory Results Hemoglobin A1c Test 01/03/17 05:12 Range/Units Estimated Average Glucose 148 mg/dl Hemoglobin A1c 6.8 H 4.5-5.6 % Medical Emergencies . Who to Call and When: Medical Emergencies: If at any time you feel your situation is an emergency, please call 911 immediately. . Non-Emergent Contact Non-Emergency issues call your: Primary Care Provider Call Non-Emergent contact if: you have a fever, your pain is worsening, you have any medication questions . . "Provider Documentation" section prepared by Tonny Beckford. . Core Measure Problem Core Measures: None [place] Drug Monitoring Program Search Results: no issues identified
--- NOTE | 2017-01-17 15:38 | Discharge Summary ---
Discharge Summary Date of Service January 17, 2017. Discharge Summary Admission Date: Jan 02, 2017 at 09:36 Discharge Date: January 17, 2017 Discharge Disposition: Rehab Principal Diagnosis: Osteomyelitis left 3rd and 2nd toes Problems/Secondary Diagnoses: DM, insulin dependent Acute diastolic HF, resolved CKD stage III Pulmonary hypertension Obesity HTN Bradycardia Procedures: local debridement of right 2nd and 3rd toes due to osteomyelitis Consultations: Pulmonology Nephrology Orthopedics Medication Reconciliation New Medications: Vancomycin HCl (Vancomycin HCl) 100 Mg/Ml Inj 1200 MG IV DAILY for 28 Days Eucerin (Hydrocerin) 360 Appln/120 Gm Cr 1 APPLN EXT DAILY, #1 TUBE 3 Refills Furosemide (Furosemide) 40 Mg Tab 40 MG PO QAM, #30 TAB 3 Refills Insulin Glargine (Lantus Solostar) 100 Unit/Ml Inj 20 UNIT SC BID, #1 BOX 3 Refills Miconazole Nitrate (Desenex Shake Powder) 43 Appln/43 Gm Powd 1 APPLN EXT DAILY, #1 BTL 3 Refills Nystatin (Nystop) 45 Appln/15 Gm Powd 1 APPLN EXT BID, #1 BTL 1 Refill Continued Medications: Ergocalciferol (Vitamin D 89620 Unit) 50,000 Unit Cap 84576 UNIT PO MONTHLY, CAP Ipratropium-Albuterol (Duoneb) 3 Ml Nebu 1 TREATMENT INH Q4H, INHA Levothyroxine Sodium (Levothyroxine Sodium) 100 Mcg Tab 100 MCG PO DAILY Oxygen (Oxygen) Gas 2-3 LITER NA HS PRN for Shortness of Breath Simvastatin (Zocor) 20 Mg Tab 20 MG PO DAILY, TAB Tamsulosin Hcl (Flomax) 0.4 Mg Cap 0.4 MG PO DAILY, CAP Warfarin Sod (Jantoven) 5 Mg Tab 5 MG PO UD, TAB TAKES 5MG EVERYDAY BUT SUNDAY Warfarin Sod (Jantoven) 5 Mg Tab 2.5 MG PO UD, TAB TAKES 2.5MG ONLY ON MONDAYS Discontinued Medications: Carvedilol (Coreg) 3.125 Mg Tab 3.125 MG PO BID, TAB Furosemide (Lasix) 20 Mg Tab 20 MG PO Q2D, TAB Insulin Lispro 75/25 (Humalog Mix 75/25) 100 Units/ Inj 30 UNITS SC BID, VIAL Losartan Potassium (Cozaar) 50 Mg Tab 50 MG PO DAILY, TAB Metformin Ext Rel (Glucophage Ext Rel) 500 Mg Tab 500 MG PO BID, TAB Discharge Exam Patient doing well this AM, ready for d/c from his perspective. Had peer to peer and he was approved for rehab. Patient discharged after his Vancomycin dose completed today. Review of Systems: Constitutional: + fatigue, + weakness, No chills, No fever, No problem reported, No sweats, No weight loss Eyes: No diplopia, No discharge, No eye pain, No problem reported, No redness, No worsening of vision ENT: No dental problems, No hearing loss, No nasal symptoms, No problem reported, No sore throat, No tinnitus, No trouble swallowing, No unusual epistaxis Respiratory: No cough, No dyspnea at rest, No dyspnea on exertion, No hemoptysis, No problem reported, No shortness of breath, No sputum, No wheezing Cardiovascular: No PND, No chest pain, No claudication, No edema, No orthopnea, No palpitations, No problem reported Abdomen: No GI bleeding, No constipation, No diarrhea, No nausea, No pain, No problem reported, No vomiting Musculoskeletal: + joint pain (right 2nd and 3rd toe), No calf pain, No muscle pain, No problem reported, No swelling Genitourinary - Male: No dysuria, No hematuria, No urinary frequency, No urinary urgency Neurologic: + balance problems, + weakness, No memory loss, No numbness/ tingling, No paralysis, No vertigo Psychiatric: No anhedonism, No anxiety, No depression symptoms, No insomnia , No problem reported, No substance abuse Endocrine: No excessive thirst, No excessive urination, No fatigue, No problem reported Hematologic / Lymphatic: No abnormal bleeding/bruising, No clotting problems , No night sweats, No problem reported, No swollen lymph nodes Integumentary: No bleeding, No color change, No itch, No new/changing skin lesions, No problem reported, No rash Physical Exam: General Appearance: no apparent distress, + obese Eyes: normal inspection, EOMI, sclerae normal ENT: normal ENT inspection, hearing grossly normal, pharynx normal Neck: supple, no adenopathy, no JVD, trachea midline Respiratory/Chest: chest non-tender, lungs clear, normal breath sounds, no respiratory distress, no accessory muscle use Cardiovascular: regular rate, rhythm, no edema, no gallop, no JVD, no murmur , normal peripheral pulses Abdomen / GI: normal bowel sounds, non tender, soft, no organomegaly Extremities: normal inspection, no calf tenderness, normal capillary refill , normal range of motion, + pedal edema Neurologic/Psychiatric: contractor buyer II-XII nml as tested, no motor/sensory deficits , alert, normal mood/affect, normal reflexes, oriented x 3 Skin: + pertinent finding (chronic venous stasis changes) Lymphatic: no adenopathy Hospital Course OSTEOMYELITIS LEFT 3rd TOE and 2nd TOE Ortho on board - suggests amputation when medically stable discussed with pulmonary and renal, he is not medically optimized for surgery currently Initial blood cultures with MRSA Repeat BCs X 2 negative for growth PICC line placed in left upper arm 01/12/2017 ID consulted - appreciate Dr. Rabago's input - suggests IV abx for at least 6 weeks, Vancomycin 1200mg IV daily x 4 more weeks for 6 weeks total will follow up with wound care d/c today to [facility] where he will continue IV Vancomycin dressing changes daily, instructions in d/c instructions BRADYCARDIA Carvedilol held 01/13/17 p.m. HR in 60-70's ever since it was held, will continue to hold on d/c, rates never accelerated ACUTE KIDNEY INJURY - resolved Nephrology consulted appreciate Dr. Dan's input Baseline creatinine 1.6-2.0 Cr again stable at 1.6-1.7 the past three days diuresed with Lasix 40mg PO BID nephrology recommends d/c on Lasix 40mg daily (was previously on 20mg QOD) and holding Losartan on d/c ACUTE DIASTOLIC HF: resolved, diuresed with Lasix 40mg PO BID Cr holding at 1.6 no pulmonary edema, all peripheral in legs CAD S/P CABG, AVR Bradycardic - hold carvidolol and follow on telemetry TTE negative for endocarditis No chest pain INR therapeutic, continue Coumadin 5mg daily with 2.5mg on Mondays EVENS Continue patient's home CPAP ATRIAL FIBRILLATION INR 2.4, resume Coumadin at 5mg daily and 2.5mg on Sunday's stopped Lovenox DM: sugars stable, no values greater than 200 the past several days will change to Lantus on discharge since it has been working so well can utilize Novolog SS stop metformin due to renal function follow up with PCP DVT PROPHYLAXIS Coumadin Total Time Spent: Greater than 30 minutes This includes examination of the patient, discharge planning, medication reconciliation, and communication with other providers. Discharge Instructions Please refer to the electronic Patient Visit Report (Discharge Instructions) for additional information. Follow-Up Dr. Reece at [facility] Dr. Dan in [address] Rabago in 3-[address] Harper one week after d/c from rehab Additional Copies To Zachariah Rabago MD; Winston Harper M.D.; [facility]; Robert Dan D.O.
[2017-01-20] MEDS ORDERED: VANCOMYCIN TROUGH SCH (11:30)
[2017-03-08] MEDS ORDERED: FRS/40 PO (08:43)
[2017-03-08] MEDS ORDERED: INSU1INJ SC (08:43)
[2017-03-08] MEDS ORDERED: CHOL1000 PO (08:43)
[2017-03-08] MEDS ORDERED: CMD25 PO (08:43)
[2017-03-08] MEDS ORDERED: LINE1TAB6 PO (08:44)
[2017-03-08] MEDS ORDERED: ventolin hfa INH (08:47)
[2017-03-23] MEDS ORDERED: DAPT500I IV (13:10)
[2017-03-23] MEDS ORDERED: BUDE1SUS INH (13:51)
[2017-03-23] MEDS ORDERED: CPR500 PO (13:51)
[2017-03-23] MEDS ORDERED: FRS/40 PO (13:51)
[2017-04-01] MEDS ORDERED: VNTHFA/IN INH (04:38)
[2017-04-01] MEDS ORDERED: SIMV20TA2 PO (08:25)
[2017-04-01] MEDS ORDERED: LEVO100T7 PO (08:25)
[2017-04-01] MEDS ORDERED: OXGN (08:25)
[2017-04-01] MEDS ORDERED: IPRASOL4 INH (08:25)
[2017-04-01] MEDS ORDERED: TAMS0.4C38 PO (08:25)
[2017-04-01] MEDS ORDERED: ERGO500037 PO (08:43)
[2017-04-01] MEDS ORDERED: CMD5 PO ×2 (08:43→16:13)
[2017-05-30] MEDS ORDERED: FERR1TAB23 PO (11:27)
[2017-06-21] MEDS ORDERED: HUMALOG MIX SQ (13:55)
[2017-08-16] MEDS ORDERED: DOXY100C76 PO (14:14)
[2017-08-16] MEDS ORDERED: HMLI7525 SC (14:14)
[2017-08-22] MEDS ORDERED: FRS/40 PO (08:12)
== END 2017-01-17 14:39 | DRG 871 ==
LOC: ENRESERVDT → ENRESERVTM → EDBD 07:08 → C.EDA 07:09 → C.2T 09:36
PROVIDERS: ADMIT Internal Medicine; ATTEND Internal Medicine
PROC: 02H633Z Insertion of Infusion Device into Right Atrium, Percutaneous Approach (ICD-10-PCS; principal; 2017-01-12)
DX: A41.02 Sepsis due to Methicillin resistant Staphylococcus aureus (principal); I50.33 Acute on chronic diastolic (congestive) heart failure; J96.20 Acute and chronic respiratory failure, unspecified whether with hypoxia or hypercapnia; N17.0 Acute kidney failure with tubular necrosis; M86.8X7 Other osteomyelitis, ankle and foot; I13.0 Hypertensive heart and chronic kidney disease with heart failure and stage 1 through stage 4 chronic kidney disease, or unspecified chronic kidney disease; I48.92 Unspecified atrial flutter; N25.81 Secondary hyperparathyroidism of renal origin; B37.0 Candidal stomatitis; B37.89 Other sites of candidiasis; L03.116 Cellulitis of left lower limb; Z68.41 Body mass index [BMI] 40.0-44.9, adult; Z53.09 Procedure and treatment not carried out because of other contraindication; E78.5 Hyperlipidemia, unspecified; I25.10 Atherosclerotic heart disease of native coronary artery without angina pectoris; M10.9 Gout, unspecified; E11.621 Type 2 diabetes mellitus with foot ulcer; L97.529 Non-pressure chronic ulcer of other part of left foot with unspecified severity; E11.69 Type 2 diabetes mellitus with other specified complication; N18.3 Chronic kidney disease, stage 3 (moderate); E11.40 Type 2 diabetes mellitus with diabetic neuropathy, unspecified; E11.22 Type 2 diabetes mellitus with diabetic chronic kidney disease; J44.9 Chronic obstructive pulmonary disease, unspecified; G47.33 Obstructive sleep apnea (adult) (pediatric); R00.1 Bradycardia, unspecified; I48.2 Chronic atrial fibrillation; I27.2 Other secondary pulmonary hypertension; E03.9 Hypothyroidism, unspecified; D64.9 Anemia, unspecified; N40.0 Benign prostatic hyperplasia without lower urinary tract symptoms; Z79.01 Long term (current) use of anticoagulants; Z79.4 Long term (current) use of insulin; Z79.899 Other long term (current) drug therapy; Z87.442 Personal history of urinary calculi; Z87.440 Personal history of urinary (tract) infections; Z88.8 Allergy status to other drugs, medicaments and biological substances; R31.9 Hematuria, unspecified; E66.01 Morbid (severe) obesity due to excess calories; Z95.1 Presence of aortocoronary bypass graft; Z95.2 Presence of prosthetic heart valve

== ENCOUNTER → 2017-01-30 | Outpatient (CLI) | payer OTHER ==
[~2017-01-30] MED LIST changes: -CARV3.12 PO; +DOXY100C76 PO; -FERR1TAB23; +FERR1TAB23 PO; -LOSA50TA6 PO; -METF-382 PO
[2017-01-30 13:24] LABS: HEMATOCRIT 30.6 % (42-52); MEAN CELL VOLUME 96.8 fL (80-100); MEAN CORPUSCULAR HEMOGLOBIN 29.7 pg (25-34); MEAN CORPUSCULAR HGB CONC 30.7 g/dl (32-36); MEAN PLATELET VOLUME 8.9 fL (7.4-10.4); PLATELET COUNT 409 K/uL (130-400); RED BLOOD COUNT 3.16 M/uL (4.7-6.1); WHITE BLOOD COUNT 10.04 K/uL (4.8-10.8)
[2017-01-30 13:44] LABS: BLOOD UREA NITROGEN 41 mg/dl (7-18); BUN/CREATININE RATIO 24.2 (10-20); CARBON DIOXIDE 28 mmol/L (21-32); CHLORIDE 102 mmol/L (98-107); GLUCOSE 161 mg/dl (70-99); POTASSIUM 4.5 mmol/L (3.5-5.1); SODIUM 139 mmol/L (136-145)
[2017-01-30 13:50] LABS: CALCIUM 9.1 mg/dl (8.5-10.1)
== END | disposition home or self-care (01) ==
LOC: C.LABSPEC 12:57
PROVIDERS: ATTEND Internal Medicine Infectious Disease
DX: M86.9 Osteomyelitis, unspecified (principal)

== ENCOUNTER → 2017-02-05 | Outpatient (CLI) | payer OTHER ==
[2017-02-05 14:02] LABS: HEMATOCRIT 29.4 % (42-52); MEAN CELL VOLUME 94.8 fL (80-100); MEAN CORPUSCULAR HEMOGLOBIN 29.7 pg (25-34); MEAN PLATELET VOLUME 8.5 fL (7.4-10.4); PLATELET COUNT 382 K/uL (130-400); WHITE BLOOD COUNT 9.89 K/uL (4.8-10.8)
[2017-02-05 14:17] LABS: MEAN CORPUSCULAR HGB CONC 31.3 g/dl (32-36)
[2017-02-05 14:20] LABS: BLOOD UREA NITROGEN 40 mg/dl (7-18); BUN/CREATININE RATIO 21.1 (10-20); CARBON DIOXIDE 26 mmol/L (21-32); CHLORIDE 104 mmol/L (98-107); GLUCOSE 162 mg/dl (70-99); POTASSIUM 4.3 mmol/L (3.5-5.1); SODIUM 138 mmol/L (136-145)
[2017-02-05 14:45] LABS: CALCIUM 8.7 mg/dl (8.5-10.1)
== END | disposition home or self-care (01) ==
LOC: C.LABSPEC 13:17
PROVIDERS: ATTEND Internal Medicine Infectious Disease
DX: M86.9 Osteomyelitis, unspecified (principal)

== ENCOUNTER → 2017-02-06 | Outpatient (CLI) | payer OTHER ==
[2017-02-06 17:00] LABS: BASO % 0.2 %; BASO ABS # 0.02 K/uL (0-0.2); COMPLETE YES; EOS % 2.3 %; HEMATOCRIT 29.6 % (42-52); IG% 0.6 %; MEAN CELL VOLUME 94.9 fL (80-100); MEAN CORPUSCULAR HEMOGLOBIN 29.8 pg (25-34); MEAN CORPUSCULAR HGB CONC 31.4 g/dl (32-36); MEAN PLATELET VOLUME 8.6 fL (7.4-10.4); NEUT % 79.9 %; PLATELET COUNT 402 K/uL (130-400); RED BLOOD COUNT 3.12 M/uL (4.7-6.1); WHITE BLOOD COUNT 10.97 K/uL (4.8-10.8)
[2017-02-06 17:07] LABS: URINE APPEARANCE TURBID (CLEAR); URINE BILIRUBIN NEG (NEG); URINE COLOR YELLOW; URINE NITRITE POS (NEG); URINE SPECIFIC GRAVITY 1.016 (1.000-1.030); UROBILINOGEN NEG (NEG); ZZUR CULT IF INDIC CLEAN CATCH YES
[2017-02-06 17:13] LABS: MANUAL MICROSCOPIC REQUIRED? NO; REVIEW REQ? NO
[2017-02-06 17:24] LABS: URINE PROTIEN/CREAT RATIO 0.7 (0-0.2); URINE TOTAL PROTEIN 51.8 mg/dl (0-11.9)
[2017-02-06 17:27] LABS: BLOOD UREA NITROGEN 36 mg/dl (7-18); BUN/CREATININE RATIO 20.3 (10-20); CALCIUM 8.4 mg/dl (8.5-10.1); CARBON DIOXIDE 24 mmol/L (21-32); CHLORIDE 109 mmol/L (98-107); GLUCOSE 261 mg/dl (70-99); PHOSPHORUS 3.1 mg/dl (2.5-4.9); POTASSIUM 4.5 mmol/L (3.5-5.1); SODIUM 143 mmol/L (136-145); TOTAL IRON BINDING CAPACITY 311 mcg/dl (250-450)
[2017-02-06 17:33] LABS: FERRITIN 33.6 ng/ml (8.0-388.0); MAGNESIUM 2.3 mg/dl (1.8-2.4)
--- NOTE | 2017-02-14 07:04 | CODING QUERY MEDICAL NECESSITY ---
CQSUPPORTING DIAGNOSIS NEEDED A supporting diagnosis is required for the test/procedure performed on this patient in order for us to be reimbursed by the patient's insurance. Please provide a supporting diagnosis for the following test/procedure listed below next to the test name along with your signature. *If there is no additional diagnosis for this patient that would support the following test/procedure please document that below next to the test/procedure. Test(s)/Procedure(s) that require a supporting diagnosis: MERY 02/06/17 URINE CULTURE Provider Signature: Date: Thank you Madelin Burnett [employer] Information Management Once completed, please kindly fax back to [phone] For questions please call [phone]
== END | disposition home or self-care (01) ==
LOC: C.LABBC 14:53
PROVIDERS: ATTEND Internal Medicine Nephrology
DX: N18.3 Chronic kidney disease, stage 3 (moderate) (principal); D64.9 Anemia, unspecified; N39.0 Urinary tract infection, site not specified

== ENCOUNTER → 2017-02-13 | Outpatient (CLI) | payer OTHER ==
[2017-02-13 14:05] LABS: HEMATOCRIT 30.3 % (42-52); MEAN CELL VOLUME 94.1 fL (80-100); MEAN CORPUSCULAR HEMOGLOBIN 28.9 pg (25-34); MEAN CORPUSCULAR HGB CONC 30.7 g/dl (32-36); MEAN PLATELET VOLUME 8.8 fL (7.4-10.4); PLATELET COUNT 328 K/uL (130-400); RED BLOOD COUNT 3.22 M/uL (4.7-6.1); WHITE BLOOD COUNT 9.22 K/uL (4.8-10.8)
[2017-02-13 14:27] LABS: BLOOD UREA NITROGEN 37 mg/dl (7-18); CARBON DIOXIDE 23 mmol/L (21-32); CHLORIDE 109 mmol/L (98-107); GLUCOSE 61 mg/dl (70-99); POTASSIUM 4.4 mmol/L (3.5-5.1); SODIUM 142 mmol/L (136-145)
== END | disposition home or self-care (01) ==
LOC: C.LABSPEC 13:24
PROVIDERS: ATTEND Internal Medicine Infectious Disease
DX: M86.9 Osteomyelitis, unspecified (principal)

== ENCOUNTER → 2017-03-06 | Outpatient (CLI) | payer OTHER ==
[2017-03-06 16:18] LABS: BASO % 0.2 %; BASO ABS # 0.01 K/uL (0-0.2); HEMATOCRIT 24.8 % (42-52); IG% 0.3 %; LYMPH % 7.7 %; LYMPH ABS # 0.47 K/uL (1.2-3.4); MEAN CELL VOLUME 90.2 fL (80-100); MEAN PLATELET VOLUME 8.7 fL (7.4-10.4); MONO % 6.4 %; NEUT % 83.4 %; PLATELET COUNT 151 K/uL (130-400); RED BLOOD COUNT 2.75 M/uL (4.7-6.1); WHITE BLOOD COUNT 6.11 K/uL (4.8-10.8)
[2017-03-06 16:44] LABS: ALT/SGPT 24 U/L (12-78); AST/SGOT 22 U/L (15-37); BLOOD UREA NITROGEN 58 mg/dl (7-18); BUN/CREATININE RATIO 30.5 (10-20); CALCIUM 8.6 mg/dl (8.5-10.1); CARBON DIOXIDE 22 mmol/L (21-32); CHLORIDE 110 mmol/L (98-107); GLUCOSE 167 mg/dl (70-99); POTASSIUM 4.5 mmol/L (3.5-5.1); SODIUM 142 mmol/L (136-145)
[2017-03-06 16:46] LABS: ALB/GLOB RATIO 0.7 (0.9-2); ALKALINE PHOSPHATASE 427 U/L (45-117); C-REACTIVE PROTEIN 0.72 mg/dl (0-0.29)
[2017-03-06 17:10] LABS: COMPLETE YES
[2017-03-07 07:38] LABS: HYPOCHROMIA PRESENT
== END | disposition home or self-care (01) ==
LOC: C.LAB1850 15:22
PROVIDERS: ATTEND Physician Assistant
DX: N18.3 Chronic kidney disease, stage 3 (moderate) (principal); B37.0 Candidal stomatitis

== ENCOUNTER 2017-03-13 15:52 | Inpatient (IN) | payer OTHER ==
[2017-03-13] VITALS (16 sets, daily range): BP systolic 106–144; BP diastolic 50–72; PULSE 65–77; TEMP 36.4–37.4; O2SAT 92–98; Ht 175.3 cm; Wt 122.7 kg
[~2017-03-13] VITALS: Ht 175.3 cm; Wt 122.7 kg
[~2017-03-13 15:52] MED LIST changes: -BUDE1SUS; -CMD5 PO; -ERGO500037 PO; -IPRASOL4 INH; -LEVO100T7 PO; -OXGN; -SIMV20TA2 PO; -TAMS0.4C38 PO
[2017-03-13] MEDS ORDERED: LORAZEPAM 0.5 MG TAB PO PRN (16:15)
[2017-03-13] MEDS ORDERED: MoRPHine SULFATE 2 MG/ML CARP IV PRN (16:15)
[2017-03-13] MEDS ORDERED: SODIUM CHLORIDE 0.9% 1000ML 1,000 ML IV SCH (16:15)
[2017-03-13] MEDS ORDERED: MoRPHine SULFATE 4 MG/ML 1 ML CARP\\VIAL IV PRN (16:15)
[2017-03-13] MEDS ORDERED: [UNRECOGNIZED DRUG - OTHER] PRN (16:15)
[2017-03-13] MEDS ORDERED: PHYTONADIONE INJ 2.5 MG in SODIUM CHLORIDE 0.9% 50ML 50 ML IV ONE (17:15)
[2017-03-13] MEDS ORDERED: BUDE1SUS INH (17:37)
[2017-03-13] MEDS ORDERED: LINEZOLID / D5W 600 MG in PREMIXED IN D5W 300 ML IV SCH (18:00)
[2017-03-13] MEDS: INSULIN ASPART 100 UNITS/ML 3 ML PEN SC SCH ×2 (18:18→21:15)
--- NOTE | 2017-03-13 18:23 | History and Physical ---
History & Physical Date & Time of Service: Mar 13, 2017 at 18:12 Chief Complaint: Symptomatic Anemia Primary Care Physician: Winston Harper M.D. History of Present Illness Source: patient The patient presents as a direct admission from Dr. Dan's office. The patient is treated for chronic kidney disease and anemia of chronic disease. The patient received a transfusion of 2 units packed red blood cells on 03/08, repeat blood work on the showed his hemoglobin to gone from 7.7 pretransfusion to 7.3. This patient chronically takes Coumadin and his last INR was therapeutic. The patient notes increased fatigue throughout the day especially in the evening. He has mild shortness of breath at that time also. He's been having diarrheal stools which are dark in color. Last 5-6 days which she feels is associated with him being transitioned to Zyvox per infectious disease for osteoarthritis of a diabetic toe infection. Subsequently the patient has stopped the Zyvox therapy on 03/11. Despite his symptomatic anemia the patient otherwise is doing well he's been following up with infection just disease and wound care clinic and his possible myositis of his toes improving greatly. The patient has no history of having peptic ulcer but he has also not had a history of a colonoscopy at any point in his life. Patient is being admitted for transfusion of symptomatically anemia and gastrointestinal evaluation for possible endoscopy Past Medical/Surgical History Medical Problems: (1) A-fib Status: Chronic (2) Anemia Status: Chronic (3) ASCVD (arteriosclerotic cardiovascular disease) Status: Chronic (4) CHF (congestive heart failure) Status: Chronic (5) COPD (chronic obstructive pulmonary disease) Status: Chronic (6) Dermatitis, seborrheic Status: Chronic (7) Diabetes Status: Chronic (8) Elevated alkaline phosphatase level Status: Chronic (9) Elevated LFTs Status: Chronic (10) Hyperlipidemia Status: Chronic (11) Hypertension Status: Chronic (12) Hypothyroid Status: Chronic (13) Ichthyosis Status: Chronic (14) Painful diabetic neuropathy Status: Chronic (15) Pulmonary hypertension Status: Chronic (16) Secondary hyperparathyroidism Status: Chronic (17) Sleep apnea Status: Chronic (18) Stage 3 chronic kidney disease Status: Chronic Surgical Problems: (1) Hx of CABG Status: Resolved Family History Family history is heart disease and diabetes Social History Smoking Status: Never Smoker Marital Status: Occupational Status: retired Multi-Drug Resistant Organisms History of MDRO: Yes Type of MDRO: MRSA Allergies Coded Allergies: Chlorpheniramine (Unverified Allergy, Unknown, ., 01/02/17) Phenylpropanolamine (Unverified Allergy, Unknown, ., 01/02/17) Home Medications Scheduled Budesonide (Inhalation) (Pulmicort), prn Ergocalciferol (Vitamin D 29569 Unit), 1 CAP PO WK Furosemide (Lasix), 40 MG PO BID Insulin Isophan/Regular (Humulin 70/30), 20 UNITS SC BID Levothyroxine Sodium (Levothyroxine Sodium), 100 MCG PO DAILY Linezolid (Zyvox), 600 MG PO BID Miconazole Nitrate (Desenex Shake Powder), 1 APPLN EXT DAILY Simvastatin (Zocor), 20 MG PO DAILY Tamsulosin Hcl (Flomax), 0.4 MG PO DAILY Warfarin Sod (Coumadin), 1 TAB PO [id number]-- Warfarin Sod (Coumadin), 1 TAB PO -sun Scheduled PRN Home O2 Therapy (Oxygen), 1.5 LITER NA HS PRN for Shortness of Breath Ipratropium-Albuterol (Duoneb), 1 TREATMENT INH Q4H PRN for Shortness of Breath [ventolin hfa], 1-2 PUFFS INH for Shortness of Breath Review of Systems ROS: well nourished well developed NC/AT PERRL EOMI Sclera normal Neck no JVD, no adenopathy, trachea midline Car is irregular with systolic murmur Lungs are clear no focal air loss, no cough Abd is soft non tender normal bowel sounds Extremity, swelling dark and dry skin, numbness Skin leg color changes and darkening Neuro Alert and oriented X3 no focal loss of strength or sensation upper extremity.lower extremity with numbness Psyche no anxiety or depression Physical Exam Vital Signs Date Time Temp Pulse Resp B/P (MAP) Pulse Ox O2 Delivery O2 Flow Rate FiO2 03/13/17 17:40 36.5 77 20 119/62 94 Room Air General Appearance: WD/WN, + mild distress Eyes: PERRL, EOMI ENT: hearing grossly normal, pharynx normal Neck: supple, trachea midline Respiratory/Chest: chest non-tender, lungs clear, normal breath sounds Cardiovascular: + systolic murmur, + irregularly irregular Abdomen/GI: normal bowel sounds, non tender, soft Extremities/Musculoskelatal: + pedal edema, + swelling, + pertinent finding ( changes of chronic venous stasis dermatitis, left third toe looks improved from previous) Neurologic/Psych: alert, oriented x 3 Skin: + rash, + pertinent finding (dry skin lower extremities) Diagnostics Laboratory Results Results Past 24 Hours Test 03/13/17 17:11 Range/Units Bedside Glucose 186 70-99 mg/dl Microbiology Results 03/13/17 C.difficile Toxin B Gene (PCR), Iker Batch Pending 03/13/17 Shiga Toxin Test, Iker Batch Pending 03/13/17 Stool Culture, Iker Batch Pending Impression Assessment and Plan 81-year-old male with symptomatic anemia of undetermined source Anemia, due to a national shortage the patient will be placed on IV Pepcid instead of Protonix, though clear liquids tonight and nothing by mouth in the morning, he will see Dr. simons and possibly have an upper endoscopy in the next few days. He'll be transfused 2 units packed red blood cells 03/13. His blood count checked in the morning Regarding his diabetes his combination insulin will be held given Lantus 10 units subcutaneous this evening and insulin sliding scale with carb coverage Regarding his chronic kidney disease is diuretics will be held and he will be given intravenous fluids gently overnight COPD is stable this time will continue his inhaled medications Regarding his atrial fibrillation is rate controlled currently without medicines. These were stopped last admission. Regarding his A. fib flutter anticoagulation will be given 2.5 mg of intravenous vitamin K and have his INR checked in the morning. DvT prevention will be Coumadin this point in time and likely reinstituted after colonoscopy. 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
[2017-03-13] MEDS ORDERED: ACETAMINOPHEN 500 MG TAB PO PRN (18:45)
[2017-03-13] MEDS ORDERED: ACETAMINOPHEN 500 MG TAB PO ONE (19:00)
[2017-03-13] MEDS: FAMOTIDINE IV INJ 20 MG in DEXTROSE 5% 100ML 100 ML IV SCH (19:11)
[2017-03-13] MEDS: ALBUT/IPRATROP 3MG/0.5MG NEB 3 ML VIAL INH SCH (20:30)
[2017-03-13] MEDS: INSULIN GLARGINE SOLOSTAR 100 UNITS/ML 3 ML PEN SC SCH (21:16)
[2017-03-14] VITALS (11 sets, daily range): BP systolic 108–149; BP diastolic 55–68; PULSE 59–75; TEMP 36.4–36.9; O2SAT 94–100
[2017-03-14] MEDS ORDERED: NURSING VERBAL MED ORDER ONE (00:30)
[2017-03-14] MEDS: FAMOTIDINE IV INJ 20 MG in DEXTROSE 5% 100ML 100 ML IV SCH ×2 (05:11→17:47)
[2017-03-14] MEDS: LEVOTHYROXINE 100 MCG TAB PO SCH (05:14)
[2017-03-14] MEDS: INSULIN ASPART 100 UNITS/ML 3 ML PEN SC SCH ×3 (05:51→17:44)
[2017-03-14] MEDS: ALBUT/IPRATROP 3MG/0.5MG NEB 3 ML VIAL INH SCH ×4 (07:12→19:03)
[2017-03-14 07:50] LABS: HEMATOCRIT 24.5 % (42-52); MEAN CELL VOLUME 85.4 fL (80-100); MEAN CORPUSCULAR HEMOGLOBIN 28.2 pg (25-34); MEAN CORPUSCULAR HGB CONC 33.1 g/dl (32-36); MEAN PLATELET VOLUME 9.3 fL (7.4-10.4); PLATELET COUNT 116 K/uL (130-400); RED BLOOD COUNT 2.87 M/uL (4.7-6.1); WHITE BLOOD COUNT 5.51 K/uL (4.8-10.8)
[2017-03-14 07:58] LABS: INR 1.9 (0.9-1.1); PROTHROMBIN TIME (PATIENT) 20.7 SECONDS (9.0-12.0)
[2017-03-14 08:21] LABS: CALCIUM 8.6 mg/dl (8.5-10.1); CREATININE 2.1 mg/dl (0.60-1.40); POTASSIUM 4.3 mmol/L (3.5-5.1)
--- NOTE | 2017-03-14 09:17 | Gastrointestinal Consultation ---
Gastrointestinal Consultation Date of Consultation: Mar 14, 2017 Attending Physician: Dr. Tanner Consulting Physician: Dr. Rebolledo Reason for Consultation: Acute Anemia History of Present Illness Patient is a 81 year old male with an extensive past medical history including Chronic kidney disease, chronic anemia and PUD. He was directly admitted yesterday from Dr. Dan's office as he has been having a worsening anemia with black stools. He does have a history of chronic anemia, however, he received a blood transfusion within the past few weeks, and did not have an appropriate response with only a slight rise in his Hgb after receiving 2 units of PRBC. He states that he was in the hospital last month for treatment of osteomyelitis , and noted that when he was switched from Vancomycin to Linezolid he developed dark stools and diarrhea. He also takes iron supplementation due to his chronic anemia. At the time I saw him this AM, he denied any lightheadedness, dizziness, fevers, chills, nausea, vomiting, abdominal pain, hematemesis or hematochezia. He does have continued dark stools. He describes a remote history of PUD in the past. No NSAID use at home. He has never had a colonoscopy in the past. He has been on Pepcid 20mg IV BID since his arrival, and denies any further complaints. Past Medical/Surgical History Medical Problems: (1) Cellulitis of left lower extremity Status: Acute (2) Sepsis Status: Acute Past Medical History: 1) A-fib 2) CAD 3) Heart Failure 4) COPD 5) DM 6) Elevated liver panel 7) Osteomyelitis 8) HTN 9) Hyperlipidemia 10) Hypothyroid 11) Diabetic nephropathy 12) Diabetic neuropathy 13) [place] 14) Hyperparathyroidism 15) CKD Stage III Past Surgical History: CABG Family History FH: diabetes mellitus FH: hypertension Social History Smoking Status: Never Smoker Marital Status: Housing Status: lives with significant other Occupation Status: retired Allergies Coded Allergies: Chlorpheniramine (Unverified Allergy, Unknown, ., 01/02/17) Phenylpropanolamine (Unverified Allergy, Unknown, ., 01/02/17) Current Medications Home Meds and Scripts Medications Dose Route/Sig Max Daily Dose Days Date Category Pulmicort (Budesonide (Inhalation)) 1 Mg/2 Ml Milagros PRN 03/13/17 Reported [ventolin hfa] 1-2 Puffs INH PRN 03/08/17 Reported Zyvox (Linezolid) 600 Mg Tab 600 Mg PO BID 03/08/17 Reported Coumadin (Warfarin Sod) 2.5 Mg Tab 1 Tab PO -Sun03/08/17 Reported Coumadin (Warfarin Sod) 5 Mg Tab 1 Tab PO [id number]--03/08/17 Reported Humulin 70/30 (Insulin Human Isoph/Insulin Regular) Susp 20 Units SC BID 03/08/17 Reported Lasix (Furosemide) 40 Mg Tab 40 Mg PO BID 03/08/17 Reported Vitamin D 10220 Unit (Ergocalciferol) 50,000 Unit Cap 1 Cap PO WK 28 03/08/17 Reported Desenex Shake Powder (Miconazole Nitrate) 43 Appln/43 Gm Powd 1 Appln EXT DAILY 01/17/17 Rx Oxygen Gas 1.5 Liter NA HS PRN 01/02/17 Reported Duoneb (Ipratropium-Albuterol) 3 Ml Nebu 1 Treatment INH Q4H PRN 01/02/17 Reported Flomax (Tamsulosin Hcl) 0.4 Mg Cap 0.4 Mg PO DAILY 01/02/17 Reported Zocor (Simvastatin) 20 Mg Tab 20 Mg PO DAILY 01/02/17 Reported Levothyroxine Sodium 100 Mcg Tab 100 Mcg PO DAILY 01/02/17 Reported Review of Systems Constitutional: No fever, No chills Eyes: No eye pain ENT: No unusual epistaxis, No sore throat Respiratory: + dyspnea on exertion, No cough, No sputum, No shortness of breath Cardiac: No chest pain Abdomen: + GI bleeding, No pain, No nausea, No vomiting, No dysphagia, No odynophagia, No acolic stools, No jaundice, No dark urine Male : No dysuria, No hematuria Psych: No depression symptoms Endo: + fatigue Skin: No rash Physical Exam Date Time Temp Pulse Resp B/P (MAP) Pulse Ox O2 Delivery O2 Flow Rate FiO2 03/14/17 07:14 62 16 94 Room Air 03/14/17 06:55 36.5 75 18 149/66 (93) 95 Room Air 03/14/17 02:00 Room Air CPAP 03/14/17 01:00 36.7 67 18 141/64 99 03/14/17 00:00 36.9 68 18 108/55 97 03/13/17 23:30 37.4 70 18 106/59 98 03/13/17 23:21 36.7 73 16 118/53 (74) 98 Room Air 03/13/17 23:00 36.7 68 18 118/53 98 03/13/17 22:45 36.9 68 18 129/63 97 03/13/17 22:24 36.4 76 18 141/71 96 03/13/17 22:00 36.7 70 18 124/62 96 03/13/17 21:06 136/72 03/13/17 21:00 36.7 65 20 120/50 94 03/13/17 20:35 65 18 94 Room Air 03/13/17 20:30 36.5 68 20 139/63 97 03/13/17 20:15 36.7 70 18 136/60 97 03/13/17 19:59 36.6 68 18 141/72 92 03/13/17 19:00 36.7 75 20 144/69 (94) 96 Room Air 03/13/17 18:30 36.6 75 20 113/63 (80) 94 Room Air 03/13/17 18:13 36.6 74 20 137/71 (93) 95 Room Air 03/13/17 17:40 36.5 77 20 119/62 94 Room Air General Appearance: + obese, + pertinent finding (Chronic ill-appearing) ENT: hearing grossly normal Neck: supple, no adenopathy Respiratory/Chest: lungs clear, normal breath sounds Cardiovascular: regular rate, rhythm Abdomen: normal bowel sounds, non tender, soft Extremities: no pedal edema Neurologic/Psych: alert, normal mood/affect, oriented x 3 Skin: no jaundice, warm/dry Laboratory Results Last 24 Hours Test 03/13/17 17:11 03/13/17 20:35 03/14/17 00:26 03/14/17 05:50 Bedside Glucose 186 mg/dl 225 mg/dl 136 mg/dl 108 mg/dl Test 03/14/17 07:17 White Blood Count 5.51 K/uL Red Blood Count 2.87 M/uL Hemoglobin 8.1 g/dL Hematocrit 24.5 % Mean Corpuscular Volume 85.4 fL Mean Corpuscular Hemoglobin 28.2 pg Mean Corpuscular Hemoglobin Concent 33.1 g/dl RDW Standard Deviation 48.1 fL RDW Coefficient of Variation 15.5 % Platelet Count 116 K/uL Mean Platelet Volume 9.3 fL Prothrombin Time 20.7 SECONDS Prothromb Time International Ratio 1.9 Sodium Level 141 mmol/L Potassium Level 4.3 mmol/L Chloride Level 108 mmol/L Carbon Dioxide Level 24 mmol/L Anion Gap 9.0 mmol/L Blood Urea Nitrogen 72 mg/dl Creatinine 2.10 mg/dl Est Creatinine Clear Calc Drug Dose 35.7 ml/min Estimated GFR () 33.2 Estimated GFR (Non- 28.7 BUN/Creatinine Ratio 34.0 Random Glucose 87 mg/dl Calcium Level 8.6 mg/dl Impression Patient is a 81 year old male with multiple medical comorbidities including Stage III CKD who presents with acute on chronic anemia with reported melena. Plan 1) Continue Famotidine 20mg IV BID 2) Transfuse PRN to maintain H/H around 8/24 3) Proceed with EGD today 4) Pending results of EGD consider colonoscopy during this hospitalization 5) Continue supportive care.
--- NOTE | 2017-03-14 10:11 | Medical Consult ---
Consultation Date of Consultation: Mar 14, 2017. Attending Physician: Shakeel Tanner M.D. History of Present Illness pt admitted with GI bleed, has been having dark stool at home and persistent low h/h after transfusion, continues here, on coumadin. no f/c. no abd pain, no n/v. eating well. Has h/o ckd as well. was seen in hospital by ID 01/15, given six weeks IV vanco for osteo, tolerated well. changed to po zyvox 14 days ago for continued drainage, noticed black stools at that time. have persisted. self discontinued abx on sat, no improvement in stools, c diff pending. Drainage from foot stopped, wound healing, has not seen wound center. no pain in foot, no drainage, no edema, no erythema. much improved. started on zyvox here, ID consulted for approval, now stopped. All remaining ros reviewed and are negative. Past Medical/Surgical History Medical Problems: (1) Cellulitis of left lower extremity Status: Acute (2) Sepsis Status: Acute Family History FH: diabetes mellitus FH: hypertension Social History Smoking Status: Never Smoker Marital Status: Housing Status: lives with significant other Occupation Status: retired Allergies Coded Allergies: Chlorpheniramine (Unverified Allergy, Unknown, ., 01/02/17) Phenylpropanolamine (Unverified Allergy, Unknown, ., 01/02/17) Current Inpatient Medications Current Inpatient Medications Medications (Trade) Dose Ordered Sig/Sukhwinder Route Start Time Stop Time Status Last Admin Dose Admin Albuterol/ Ipratropium (Duoneb) 3 ml QIDR INH 03/13/17 20:00 04/12/17 19:59 03/14/17 07:12 3 ML Levothyroxine Sodium (Synthroid Tab) 100 mcg DAILYBB PO 03/14/17 06:30 04/13/17 06:29 03/14/17 05:14 100 MCG Tamsulosin HCl (Flomax Cap) 0.4 mg DAILY PO 03/14/17 09:00 04/13/17 08:59 Famotidine 20 mg/ Dextrose 102 ml @ 200 mls/hr Q12H IV 03/13/17 17:30 04/12/17 17:29 03/14/17 05:11 200 MLS/HR Lorazepam (Ativan Tab) 0.5 mg Q6 PRN PO 03/13/17 16:15 04/12/17 16:14 Morphine Sulfate (MoRPHine SULFATE INJ) 4 mg Q4H PRN IV 03/13/17 16:15 03/27/17 16:14 Morphine Sulfate (MoRPHine SULFATE INJ) 2 mg Q4H PRN IV 03/13/17 16:15 03/27/17 16:14 Insulin Glargine (Lantus Solostar Pen) 10 unit PM SC 03/13/17 21:00 04/12/17 20:59 03/13/17 21:16 10 UNIT Acetaminophen (Tylenol Tab) 1,000 mg Q8 PRN PO 03/13/17 18:45 04/12/17 18:44 Insulin Aspart (novoLOG ASPART) SLIDING SCALE PARAMETER Q6 SC 03/14/17 06:00 04/13/17 05:59 Physical Exam Date Time Temp Pulse Resp B/P (MAP) Pulse Ox O2 Delivery O2 Flow Rate FiO2 03/14/17 09:00 36.5 75 18 149/66 95 Room Air 03/14/17 07:14 62 16 94 Room Air 03/14/17 06:55 36.5 75 18 149/66 (93) 95 Room Air 03/14/17 02:00 Room Air CPAP 03/14/17 01:00 36.7 67 18 141/64 99 03/14/17 00:00 36.9 68 18 108/55 97 03/13/17 23:30 37.4 70 18 106/59 98 03/13/17 23:21 36.7 73 16 118/53 (74) 98 Room Air 03/13/17 23:00 36.7 68 18 118/53 98 03/13/17 22:45 36.9 68 18 129/63 97 03/13/17 22:24 36.4 76 18 141/71 96 03/13/17 22:00 36.7 70 18 124/62 96 03/13/17 21:06 136/72 03/13/17 21:00 36.7 65 20 120/50 94 03/13/17 20:35 65 18 94 Room Air 03/13/17 20:30 36.5 68 20 139/63 97 03/13/17 20:15 36.7 70 18 136/60 97 03/13/17 19:59 36.6 68 18 141/72 92 03/13/17 19:00 36.7 75 20 144/69 (94) 96 Room Air 03/13/17 18:30 36.6 75 20 113/63 (80) 94 Room Air 03/13/17 18:13 36.6 74 20 137/71 (93) 95 Room Air 03/13/17 17:40 36.5 77 20 119/62 94 Room Air General Appearance: WD/WN, no apparent distress Head: normocephalic, atraumatic Eyes: normal inspection, EOMI Neck: supple Respiratory/Chest: lungs clear, normal breath sounds, no respiratory distress Cardiovascular: regular rate, rhythm, no edema Abdomen/GI: non tender, soft Extremities/Musculoskelatal: no calf tenderness, normal capillary refill, no pedal edema, + pertinent finding (left foot toe ulcer c/d/i, closed, no draiange , no bleeding, no surrounding erythema, warmth, edema, tenderness) Neurologic/Psych: alert, oriented x 3 Skin: normal color Laboratory Results Item Value Date Time C.difficile Toxin B Gene (PCR) Received 03/14/17 0905 Stool Pending Last 24 Hours Test 03/13/17 17:11 03/13/17 20:35 03/14/17 00:26 03/14/17 05:50 Bedside Glucose 186 mg/dl 225 mg/dl 136 mg/dl 108 mg/dl Test 03/14/17 07:17 White Blood Count 5.51 K/uL Red Blood Count 2.87 M/uL Hemoglobin 8.1 g/dL Hematocrit 24.5 % Mean Corpuscular Volume 85.4 fL Mean Corpuscular Hemoglobin 28.2 pg Mean Corpuscular Hemoglobin Concent 33.1 g/dl RDW Standard Deviation 48.1 fL RDW Coefficient of Variation 15.5 % Platelet Count 116 K/uL Mean Platelet Volume 9.3 fL Prothrombin Time 20.7 SECONDS Prothromb Time International Ratio 1.9 Sodium Level 141 mmol/L Potassium Level 4.3 mmol/L Chloride Level 108 mmol/L Carbon Dioxide Level 24 mmol/L Anion Gap 9.0 mmol/L Blood Urea Nitrogen 72 mg/dl Creatinine 2.10 mg/dl Est Creatinine Clear Calc Drug Dose 35.7 ml/min Estimated GFR () 33.2 Estimated GFR (Non- 28.7 BUN/Creatinine Ratio 34.0 Random Glucose 87 mg/dl Calcium Level 8.6 mg/dl Assessment & Plan (1) Osteomyelitis of left foot Assessment & Plan: s/p prolonged abx. can continue to hold for now. Doubt zyvox related to current gi bleed but ok to hold. would not suggest prolonged therapy with zyvox. can follow with ID post d/c in office to discuss additional abx, if needed. doubt any benefit from wound center at this point as wound is closed. Has completed 8 weeks abx. hold and follow in office after acute issue resolved. thank you
[2017-03-14] MEDS ORDERED: PROPOFOL IV EMULSION 10 MG/ML 20 ML VIAL IV ONE (12:51)
[2017-03-14] MEDS ORDERED: LIDOCAINE HCL 2% 2 ML VIAL (20MG/ML) ONE (12:51)
--- NOTE | 2017-03-14 13:24 | GI REPORT ---
Procedure Date: 03/14/2017 1:00 PM Procedure: Upper GI endoscopy Indications: Acute post hemorrhagic anemia Medicines: Monitored Anesthesia Care Complications: No immediate complications. Estimated Blood Loss: Estimated blood loss: none. Procedure: Pre-Anesthesia Assessment: - Prior to the procedure, a History and Physical was performed, and patient medications and allergies were reviewed. The patient's tolerance of previous anesthesia was also reviewed. The risks and benefits of the procedure and the sedation options and risks were discussed with the patient. All questions were answered, and informed consent was obtained. Prior Anticoagulants: The patient has taken Coumadin (warfarin), last dose was 2 days prior to procedure. ASA Grade Assessment: III - A patient with severe systemic disease. After reviewing the risks and benefits, the patient was deemed in satisfactory condition to undergo the procedure. After obtaining informed consent, the endoscope was passed under direct vision. Throughout the procedure, the patient's blood pressure, pulse, and oxygen saturations were monitored continuously. The Scope was introduced through the mouth, and advanced to the second part of duodenum. The upper GI endoscopy was accomplished without difficulty. The patient tolerated the procedure well. Findings: The esophagus was normal. The stomach was normal. Localized mild inflammation characterized by erythema was found in the first part of the duodenum. Impression: - Normal esophagus. - Normal stomach. - Duodenitis. - No specimens collected. Recommendation: - Return patient to [facility] for ongoing care. - Clear liquid diet today. - NPO after midnight. - Perform a colonoscopy tomorrow. Jesse Rebolledo, DO 03/14/2017 1:23:48 PM This report has been signed electronically. Note Initiated On: 03/14/2017 1:00 PM I attest to the content of the Intraoperative Record and orders documented therein, exceptions below
--- NOTE | 2017-03-14 14:30 | Anesthesiology Progress Note ---
Anesthesia Post Op Note Date & Time Mar 14, 2017 at 14:30 Vital Signs Pain Intensity: 0 Vital Signs Past 12 Hours Date Time Temp Pulse Resp B/P (MAP) Pulse Ox O2 Delivery O2 Flow Rate FiO2 03/14/17 14:26 36.8 59 18 132/57 (82) 95 Room Air 03/14/17 13:41 66 20 141/63 (89) 95 Room Air 03/14/17 13:26 66 20 133/64 (87) 95 Room Air 03/14/17 13:11 71 18 130/44 (72) 98 Room Air 03/14/17 12:20 36.7 64 18 140/61 (87) 94 Room Air 03/14/17 11:21 62 16 96 Room Air 03/14/17 09:00 36.5 75 18 149/66 95 Room Air 03/14/17 08:00 Room Air 03/14/17 07:14 62 16 94 Room Air 03/14/17 06:55 36.5 75 18 149/66 (93) 95 Room Air Notes Mental Status: alert / awake / arousable, participated in evaluation Pt Amnestic to Procedure: Yes Nausea / Vomiting: adequately controlled Pain: adequately controlled Airway Patency, RR, SpO2: stable & adequate BP & HR: stable & adequate Hydration State: stable & adequate Anesthetic Complications: no major complications apparent
--- NOTE | 2017-03-14 14:42 | Progress Note ---
Subjective Date of Service: Mar 14, 2017. Subjective Pt evaluation today including: conversation w/ patient, physical exam, lab review, review of studies (EGD), review of inpatient medication list Pain: no pain PO Intake: NPO for EGD Voiding: no voiding problems presented with symptomatic anemia, worsening despite transfusion as outpatient received 2 units here on admission, Hb stable, BP stable, patient has less fatigue, no dyspnea EGD today, normal esophagus and stomach, mild duodenitis plan for colonoscopy tomorrow per GI patient had no other complaints otherwise Problem List Medical Problems: (1) Cellulitis of left lower extremity Status: Acute (2) Sepsis Status: Acute Review of Systems Constitutional: + fatigue (improved with transfusion) All Other Systems: Reviewed and Negative Medications Current Inpatient Medications Medications (Trade) Dose Ordered Sig/Sukhwinder Route Start Time Stop Time Status Last Admin Dose Admin Albuterol/ Ipratropium (Duoneb) 3 ml QIDR INH 03/13/17 20:00 04/12/17 19:59 03/14/17 11:20 3 ML Levothyroxine Sodium (Synthroid Tab) 100 mcg DAILYBB PO 03/14/17 06:30 04/13/17 06:29 03/14/17 05:14 100 MCG Tamsulosin HCl (Flomax Cap) 0.4 mg DAILY PO 03/14/17 09:00 04/13/17 08:59 Famotidine 20 mg/ Dextrose 102 ml @ 200 mls/hr Q12H IV 03/13/17 17:30 04/12/17 17:29 03/14/17 05:11 200 MLS/HR Lorazepam (Ativan Tab) 0.5 mg Q6 PRN PO 03/13/17 16:15 04/12/17 16:14 Morphine Sulfate (MoRPHine SULFATE INJ) 4 mg Q4H PRN IV 03/13/17 16:15 03/27/17 16:14 Morphine Sulfate (MoRPHine SULFATE INJ) 2 mg Q4H PRN IV 03/13/17 16:15 03/27/17 16:14 Insulin Glargine (Lantus Solostar Pen) 10 unit PM SC 03/13/17 21:00 04/12/17 20:59 03/13/17 21:16 10 UNIT Acetaminophen (Tylenol Tab) 1,000 mg Q8 PRN PO 03/13/17 18:45 04/12/17 18:44 Insulin Aspart (novoLOG ASPART) SLIDING SCALE PARAMETER Q6 SC 03/14/17 06:00 04/13/17 05:59 Polyethylene Glycol/ Electrolytes (Golytely Soln) 16 dose TODAY@2200 ONCE PO 03/14/17 22:00 03/14/17 22:01 Objective Vital Signs Date Time Temp Pulse Resp B/P (MAP) Pulse Ox O2 Delivery O2 Flow Rate FiO2 03/14/17 14:26 36.8 59 18 132/57 (82) 95 Room Air 03/14/17 13:41 66 20 141/63 (89) 95 Room Air 03/14/17 13:26 66 20 133/64 (87) 95 Room Air 03/14/17 13:11 71 18 130/44 (72) 98 Room Air 03/14/17 12:20 36.7 64 18 140/61 (87) 94 Room Air 03/14/17 11:21 62 16 96 Room Air 03/14/17 09:00 36.5 75 18 149/66 95 Room Air 03/14/17 08:00 Room Air 03/14/17 07:14 62 16 94 Room Air 03/14/17 06:55 36.5 75 18 149/66 (93) 95 Room Air 03/14/17 02:00 Room Air CPAP 03/14/17 01:00 36.7 67 18 141/64 99 03/14/17 00:00 36.9 68 18 108/55 97 03/13/17 23:30 37.4 70 18 106/59 98 03/13/17 23:21 36.7 73 16 118/53 (74) 98 Room Air 03/13/17 23:00 36.7 68 18 118/53 98 03/13/17 22:45 36.9 68 18 129/63 97 03/13/17 22:24 36.4 76 18 141/71 96 03/13/17 22:00 36.7 70 18 124/62 96 03/13/17 21:06 136/72 03/13/17 21:00 36.7 65 20 120/50 94 03/13/17 20:35 65 18 94 Room Air 03/13/17 20:30 36.5 68 20 139/63 97 03/13/17 20:15 36.7 70 18 136/60 97 03/13/17 19:59 36.6 68 18 141/72 92 03/13/17 19:00 36.7 75 20 144/69 (94) 96 Room Air 03/13/17 18:30 36.6 75 20 113/63 (80) 94 Room Air 03/13/17 18:13 36.6 74 20 137/71 (93) 95 Room Air 03/13/17 17:40 36.5 77 20 119/62 94 Room Air Physical Exam General Appearance: WD/WN, no apparent distress Eyes: normal inspection, EOMI, sclerae normal Respiratory/Chest: chest non-tender, lungs clear, normal breath sounds, no respiratory distress, no accessory muscle use Cardiovascular: regular rate, rhythm, no edema, no gallop, no JVD, no murmur Abdomen: normal bowel sounds, non tender, soft, no organomegaly Extremities: normal range of motion, non-tender, normal inspection, no pedal edema, no calf tenderness 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, no motor/sensory deficits, alert, normal mood/affect, oriented x 3 Skin: normal color, warm/dry, no rash Laboratory Results Last 24 Hours Test 03/13/17 17:11 03/13/17 20:35 03/14/17 00:26 03/14/17 05:50 Bedside Glucose 186 mg/dl 225 mg/dl 136 mg/dl 108 mg/dl Test 03/14/17 07:17 03/14/17 11:27 03/14/17 12:00 White Blood Count 5.51 K/uL Red Blood Count 2.87 M/uL Hemoglobin 8.1 g/dL Hematocrit 24.5 % Mean Corpuscular Volume 85.4 fL Mean Corpuscular Hemoglobin 28.2 pg Mean Corpuscular Hemoglobin Concent 33.1 g/dl RDW Standard Deviation 48.1 fL RDW Coefficient of Variation 15.5 % Platelet Count 116 K/uL Mean Platelet Volume 9.3 fL Prothrombin Time 20.7 SECONDS Prothromb Time International Ratio 1.9 Sodium Level 141 mmol/L Potassium Level 4.3 mmol/L Chloride Level 108 mmol/L Carbon Dioxide Level 24 mmol/L Anion Gap 9.0 mmol/L Blood Urea Nitrogen 72 mg/dl Creatinine 2.10 mg/dl Est Creatinine Clear Calc Drug Dose 35.7 ml/min Estimated GFR () 33.2 Estimated GFR (Non- 28.7 BUN/Creatinine Ratio 34.0 Random Glucose 87 mg/dl Calcium Level 8.6 mg/dl Bedside Glucose 114 mg/dl Assessment and Plan 81-year-old male with symptomatic anemia of undetermined source, h/o CKD, chronic foot wound, atrial flutter Anemia: acute on chronic, unclear etiology, EGD normal, no bleeding Hb 8.1 this AM after 2 units transfused will repeat today plan for colonoscopy tomorrow for full work up CKD stage IV: continue gentle fluids with plan for colon prep and NPO status, Cr stable at 2.1 DM: Lantus and sliding scale COPD: no exacerbation Atrial fibrillation: Coumadin held, INR 1.9, rate controlled full code
[2017-03-14 15:14] LABS: HEMATOCRIT 26.7 % (42-52)
[2017-03-14] MEDS: TAMSULOSIN HCL 0.4 MG CAP PO SCH (16:34)
[2017-03-14] MEDS: INSULIN GLARGINE SOLOSTAR 100 UNITS/ML 3 ML PEN SC SCH (20:56)
[2017-03-14] MEDS ORDERED: LAVAGE SOLUTION 4000ML PO ONE (22:00)
[2017-03-15] MEDS: INSULIN ASPART 100 UNITS/ML 3 ML PEN SC SCH ×3 (06:00→11:47)
[2017-03-15 06:11] LABS: HEMATOCRIT 23.3 % (42-52); MEAN CORPUSCULAR HEMOGLOBIN 28.8 pg (25-34); MEAN CORPUSCULAR HGB CONC 33.5 g/dl (32-36); MEAN PLATELET VOLUME 9.7 fL (7.4-10.4); PLATELET COUNT 110 K/uL (130-400); RED BLOOD COUNT 2.71 M/uL (4.7-6.1); WHITE BLOOD COUNT 5.64 K/uL (4.8-10.8)
[2017-03-15] MEDS: FAMOTIDINE IV INJ 20 MG in DEXTROSE 5% 100ML 100 ML IV SCH (06:13)
[2017-03-15] MEDS: LEVOTHYROXINE 100 MCG TAB PO SCH (06:21)
[2017-03-15 06:24] LABS: INR 1.5 (0.9-1.1); PROTHROMBIN TIME (PATIENT) 16.3 SECONDS (9.0-12.0)
[2017-03-15 06:38] LABS: BUN/CREATININE RATIO 33.3 (10-20); CREATININE 1.7 mg/dl (0.60-1.40); POTASSIUM 3.8 mmol/L (3.5-5.1)
[2017-03-15 07:08] VITALS: BP 101/62; PULSE 58; TEMP 36.8; O2SAT 93
[2017-03-15 07:10] LABS: CALCIUM 8.7 mg/dl (8.5-10.1)
[2017-03-15 07:28] VITALS: PULSE 65; O2SAT 95
[2017-03-15] MEDS: ALBUT/IPRATROP 3MG/0.5MG NEB 3 ML VIAL INH SCH ×3 (07:28→15:30)
--- NOTE | 2017-03-15 07:53 | Clinical Documentation Query ---
CLINICAL DOCUMENTATION QUERY Dr. SORIANO, In your clinical opinion is this patient being managed for: ( x ) Chronic diastolic CHF ( ) Other explanation of clinical findings (Please Explain) ( ) Unable to determine (Please Define) ( ) Need to Discuss ( ) Not Agree The medical record reflects the following clinical findings, treatment, and risk factors. Clinical Indicators: 81 yo male presenting with anemia. PMH includes CHF. Review of previous admission (December 2016) indicates pt with last ECHO (date unknown) showing preserved EF of 65% Treatment: home medications include Lasix Risk Factors: age, COPD, A fib, DM, HTN, CKD stage IV Please clarify and document your clinical opinion in the progress notes and discharge summary. Terms such as "probable", "suspected", "likely", "questionable", "possible", or "still to be ruled out" are acceptable. IF IN AGREEMENT, YOU MUST DOCUMENT ABOVE DIAGNOSTIC STATEMENT IN DAILY PROGRESS NOTES AND DISCHARGE SUMMARY. This document is not part of the patient's record. Thank You, Alessandra Pink RN [phone]
[2017-03-15] MEDS: TAMSULOSIN HCL 0.4 MG CAP PO SCH (09:00)
[2017-03-15 10:55] VITALS: PULSE 65; O2SAT 97
[2017-03-15 14:32] LABS: HEMATOCRIT 25.7 % (42-52)
--- NOTE | 2017-03-15 16:06 | Gastroenterology Progress Note ---
Progress Note Date of Service: Mar 15, 2017 Subjective Pt evaluation today including: conversation w/ patient, physical exam, lab review No overt GI bleeding overnight. Tolerated prep well. No complaints Medications Current Inpatient Medications Medications (Trade) Dose Ordered Sig/Sukhwinder Route Start Time Stop Time Status Last Admin Dose Admin Albuterol/ Ipratropium (Duoneb) 3 ml QIDR INH 03/13/17 20:00 04/12/17 19:59 03/15/17 10:55 3 ML Levothyroxine Sodium (Synthroid Tab) 100 mcg DAILYBB PO 03/14/17 06:30 04/13/17 06:29 03/14/17 05:14 100 MCG Tamsulosin HCl (Flomax Cap) 0.4 mg DAILY PO 03/14/17 09:00 04/13/17 08:59 03/14/17 16:34 0.4 MG Famotidine 20 mg/ Dextrose 102 ml @ 200 mls/hr Q12H IV 03/13/17 17:30 04/12/17 17:29 03/15/17 06:13 200 MLS/HR Lorazepam (Ativan Tab) 0.5 mg Q6 PRN PO 03/13/17 16:15 04/12/17 16:14 Morphine Sulfate (MoRPHine SULFATE INJ) 4 mg Q4H PRN IV 03/13/17 16:15 03/27/17 16:14 Morphine Sulfate (MoRPHine SULFATE INJ) 2 mg Q4H PRN IV 03/13/17 16:15 03/27/17 16:14 Insulin Glargine (Lantus Solostar Pen) 10 unit PM SC 03/13/17 21:00 04/12/17 20:59 03/14/17 20:56 10 UNIT Acetaminophen (Tylenol Tab) 1,000 mg Q8 PRN PO 03/13/17 18:45 04/12/17 18:44 Insulin Aspart (novoLOG ASPART) SLIDING SCALE PARAMETER Q6 SC 03/14/17 06:00 04/13/17 05:59 03/14/17 17:44 12 UNITS Objective Vital Signs Date Time Temp Pulse Resp B/P (MAP) Pulse Ox O2 Delivery O2 Flow Rate FiO2 03/15/17 15:20 36.4 66 16 114/52 (72) 94 Room Air 03/15/17 10:55 65 15 97 Room Air 03/15/17 08:00 Room Air 03/15/17 07:28 65 12 95 Room Air 03/15/17 07:08 36.8 58 20 101/62 (75) 93 CPAP 03/15/17 00:00 Room Air 03/14/17 23:34 36.6 67 20 134/67 (89) 97 Room Air 03/14/17 20:00 Room Air 03/14/17 19:03 61 16 95 Room Air 03/14/17 16:08 36.4 68 20 121/68 (85) 97 Room Air Physical Exam General Appearance: no apparent distress Respiratory/Chest: lungs clear Cardiovascular: regular rate, rhythm Abdomen: non tender, soft Laboratory Results Last 24 Hours Test 03/14/17 16:22 03/14/17 20:28 03/15/17 00:00 03/15/17 01:05 Bedside Glucose 285 mg/dl 173 mg/dl 71 mg/dl 106 mg/dl Test 03/15/17 04:12 03/15/17 05:54 03/15/17 06:19 03/15/17 07:27 Bedside Glucose 93 mg/dl 82 mg/dl 93 mg/dl White Blood Count 5.64 K/uL Red Blood Count 2.71 M/uL Hemoglobin 7.8 g/dL Hematocrit 23.3 % Mean Corpuscular Volume 86.0 fL Mean Corpuscular Hemoglobin 28.8 pg Mean Corpuscular Hemoglobin Concent 33.5 g/dl RDW Standard Deviation 49.6 fL RDW Coefficient of Variation 15.6 % Platelet Count 110 K/uL Mean Platelet Volume 9.7 fL Prothrombin Time 16.3 SECONDS Prothromb Time International Ratio 1.5 Sodium Level 143 mmol/L Potassium Level 3.8 mmol/L Chloride Level 110 mmol/L Carbon Dioxide Level 25 mmol/L Anion Gap 8.0 mmol/L Blood Urea Nitrogen 57 mg/dl Creatinine 1.70 mg/dl Est Creatinine Clear Calc Drug Dose 44.1 ml/min Estimated GFR () 42.9 Estimated GFR (Non- 37.0 BUN/Creatinine Ratio 33.3 Random Glucose 80 mg/dl Calcium Level 8.7 mg/dl Test 03/15/17 11:42 03/15/17 14:07 03/15/17 14:19 Bedside Glucose 103 mg/dl 122 mg/dl Hemoglobin 8.4 g/dL Hematocrit 25.7 % Assessment and Plan Assessment: 81 yo CM who with acute on chronic anemia. Plan: Proceed with colonoscopy today
[2017-03-15 16:08] VITALS: BP 150/72; PULSE 66; TEMP 36.8; O2SAT 96
[2017-03-15] MEDS ORDERED: PROPOFOL IV EMULSION 10 MG/ML 20 ML VIAL IV ONE (16:12)
[2017-03-15] MEDS ORDERED: LIDOCAINE HCL 2% 2 ML VIAL (20MG/ML) ONE (16:12)
[2017-03-15] MEDS ORDERED: PHENYLEPHRINE 100MCG/ML 5ML SYR ONE (16:12)
[2017-03-15] MEDS ORDERED: EpHEDrine SULFATE 50MG/5ML SYR ONE (16:18)
--- NOTE | 2017-03-15 16:24 | Discharge Instructions ---
Discharge Instructions Date of Service Mar 15, 2017. Admission Reason for Admission: Symptomatic Anemia Discharge Discharge Diagnosis / Problem: Symptomatic anemia, unclear source, no bleeding found Discharge Goals Goal(s): Improve function, Improve disease control, Diagnostic testing ( capsule endoscopy) Activity Recommendations Activity Limitations: resume your previous activity Lifting Limitations: none Exercise/Sports Limitations: as tolerated May Resume Sexual Activity: when tolerated Shower/Bathe: no limitations Driving or Machine Use: no limitations . Instructions / Follow-Up Instructions / Follow-Up Medications: please note that Zyvox was stopped for the ongoing infection, ID feels that infection resolved Admitted for symptomatic anemia, transfused 2 units of red blood cells, Hb stable today at 8.4 - EGD on 03/14 was normal - colonoscopy on 03/15 was normal - follow up with Dr. Rebolledo to be set up for capsule endoscopy to look for source of bleeding in small bowel FOLLOW UP - Dr. Harper in one week - Dr. Rebolledo in 1-2 weeks for capsule endoscopy Current Hospital Diet Patient's current hospital diet: Clear Liquid Diet, Renal Diet Discharge Diet Recommended Diet: Renal Diet Procedures Procedures Performed: EGD Colonoscopy Pending Studies Studies pending at discharge: no Laboratory Results Last Resulted CBC 03/15/17 05:54 03/15/17 14:19 Last Resulted BMP 03/15/17 05:54 Hemoglobin A1c Test 01/03/17 05:12 Range/Units Estimated Average Glucose 148 mg/dl Hemoglobin A1c 6.8 H 4.5-5.6 % Medical Emergencies . Who to Call and When: Medical Emergencies: If at any time you feel your situation is an emergency, please call 911 immediately. . Non-Emergent Contact Non-Emergency issues call your: Primary Care Provider Call Non-Emergent contact if: you have any medication questions . . "Provider Documentation" section prepared by Tonny Beckford. . VTE Core Measure Inpt VTE Proph given/why not?: Warfarin (Coumadin) [place] Drug Monitoring Program Search Results: no issues identified
--- NOTE | 2017-03-15 16:31 | GI REPORT ---
Procedure Date: 03/15/2017 3:49 PM THIS REPORT HAS BEEN AMENDED Addendum Number: 1 Addendum Date: 03/15/2017 4:31:40 PM Could consider capsule Endoscopy as outpatient. Transfuse as needed Procedure: Colonoscopy Indications: Iron deficiency anemia Medicines: Monitored Anesthesia Care Complications: No immediate complications. Estimated Blood Loss: Estimated blood loss: none. Procedure: Pre-Anesthesia Assessment: - Prior to the procedure, a History and Physical was performed, and patient medications and allergies were reviewed. The patient's tolerance of previous anesthesia was also reviewed. The risks and benefits of the procedure and the sedation options and risks were discussed with the patient. All questions were answered, and informed consent was obtained. Prior Anticoagulants: The patient has taken Coumadin (warfarin), last dose was 4 days prior to procedure. ASA Grade Assessment: IV - A patient with severe systemic disease that is a constant threat to life. After reviewing the risks and benefits, the patient was deemed in satisfactory condition to undergo the procedure. After I obtained informed consent, the scope was passed under direct vision. Throughout the procedure, the patient's blood pressure, pulse, and oxygen saturations were monitored continuously. The scope was introduced through the anus and advanced to the cecum, identified by appendiceal orifice and ileocecal valve. The colonoscopy was performed without difficulty. The patient tolerated the procedure well. The quality of the bowel preparation was good. The ileocecal valve, appendiceal orifice, and rectum were photographed. Findings: Three sessile polyps were found in the sigmoid colon, in the ascending colon and in the cecum. The polyps were 3 to 6 mm in size. Polypectomy was not attempted due to the patient taking anticoagulation medication. Multiple small-mouthed diverticula were found in the sigmoid colon. Non-bleeding internal hemorrhoids were found during retroflexion. The hemorrhoids were small. Impression: - Three 3 to 6 mm polyps in the sigmoid colon, in the ascending colon and in the cecum. Resection not attempted. - Diverticulosis in the sigmoid colon. - Non-bleeding internal hemorrhoids. - No specimens collected. Recommendation: - Resume previous diet. - Continue present medications. - No repeat colonoscopy due to age and Medical comorbidities. - Return to primary care physician as previously scheduled. Jesse Rebolledo DO 03/15/2017 4:31:25 PM This report has been signed electronically. Note Initiated On: 03/15/2017 3:49 PM I attest to the content of the Intraoperative Record and orders documented therein, exceptions below Jesse Rebolledo, DO 03/15/2017 4:32:41 PM This report has been signed electronically.
--- NOTE | 2017-03-15 16:43 | Anesthesiology Progress Note ---
Anesthesia Post Op Note Date & Time Mar 15, 2017 at 16:42 Vital Signs Pain Intensity: 0.0 Vital Signs Past 12 Hours Date Time Temp Pulse Resp B/P (MAP) Pulse Ox O2 Delivery O2 Flow Rate FiO2 03/15/17 16:32 64 20 94/41 (58) 95 Room Air 03/15/17 16:08 36.8 66 16 150/72 (98) 96 Room Air 03/15/17 15:20 36.4 66 16 114/52 (72) 94 Room Air 03/15/17 10:55 65 15 97 Room Air 03/15/17 08:00 Room Air 03/15/17 07:28 65 12 95 Room Air 03/15/17 07:08 36.8 58 20 101/62 (75) 93 CPAP Notes Mental Status: alert / awake / arousable, participated in evaluation Pt Amnestic to Procedure: Yes Nausea / Vomiting: adequately controlled Pain: adequately controlled Airway Patency, RR, SpO2: stable & adequate BP & HR: stable & adequate Hydration State: stable & adequate Anesthetic Complications: no major complications apparent
[2017-03-15 17:39] VITALS: BP 131/68; PULSE 68; TEMP 36.4; O2SAT 96
[2017-03-15 17:41] VITALS: BP 131/68; PULSE 68; TEMP 36.4; O2SAT 96
--- NOTE | 2017-03-17 08:39 | Discharge Summary ---
Discharge Summary Date of Service March 15, 2017. Discharge Summary Admission Date: Mar 13, 2017 at 16:43 Discharge Date: Mar 15, 2017 Discharge Disposition: Home Principal Diagnosis: Symptomatic anemia Problems/Secondary Diagnoses: CKD stage IV Atrial fibrillation COPD Procedures: EGD - 03/14, normal Colonoscopy - 03/15, polyps throughout, 6-8mm in size, no biopsies or polypectomy given patient's age and comorbidities, no colon mass seen or active bleeding Blood transfusion - 2 units Consultations: Gastroenterology Infectious disease Medication Reconciliation Continued Medications: Budesonide (Inhalation) (Pulmicort) 1 Mg/2 Ml Milagros prn Ergocalciferol (Vitamin D 49753 Unit) 50,000 Unit Cap 1 CAP PO WK for 28 Days, #4 CAP 5 Refills Furosemide (Lasix) 40 Mg Tab 40 MG PO BID, TAB Home O2 Therapy (Oxygen) Gas 1.5 LITER NA HS PRN for Shortness of Breath Insulin Isophan/Regular (Humulin 70/30) Susp 20 UNITS SC BID, VIAL Ipratropium-Albuterol (Duoneb) 3 Ml Nebu 1 TREATMENT INH Q4H PRN for Shortness of Breath, INHA Levothyroxine Sodium (Levothyroxine Sodium) 100 Mcg Tab 100 MCG PO DAILY Miconazole Nitrate (Desenex Shake Powder) 43 Appln/43 Gm Powd 1 APPLN EXT DAILY, #1 BTL 3 Refills Simvastatin (Zocor) 20 Mg Tab 20 MG PO DAILY, TAB Tamsulosin Hcl (Flomax) 0.4 Mg Cap 0.4 MG PO DAILY, CAP Warfarin Sod (Coumadin) 5 Mg Tab 1 TAB PO [id number]-- Warfarin Sod (Coumadin) 2.5 Mg Tab 1 TAB PO -sun [ventolin hfa] () 1-2 PUFFS INH PRN for Shortness of Breath Discontinued Medications: Linezolid (Zyvox) 600 Mg Tab 600 MG PO BID, TAB Discharge Exam Patient was feeling well prior to colonoscopy, no complaints. Reviewed lab work with him, Hb was down in the AM but increased to 8.4 in the afternoon. He tolerated prep for colonoscopy and was c/o hunger, wanted to get scope, eat and leave the hospital. Discussed options to work up anemia if colonoscopy negative such as capsule endoscopy, would follow up with Dr. Rebolledo. Colonoscopy was without complication, polyps seen but not removed. He tolerated dinner afterwards and was d/c home. Review of Systems: Constitutional: No fever, No chills, No sweats, No weight loss, No weakness , No fatigue, No problem reported Eyes: No worsening of vision, No eye pain, No redness, No discharge, No diplopia, No problem reported ENT: No hearing loss, No unusual epistaxis, No nasal symptoms, No sore throat, No tinnitus, No dental problems, No trouble swallowing, No problem reported Respiratory: + dyspnea on exertion (chronic), No cough, No sputum, No wheezing, No shortness of breath, No dyspnea at rest, No hemoptysis, No problem reported Cardiovascular: No chest pain, No orthopnea, No PND, No edema, No claudication, No palpitations, No problem reported Abdomen: No pain, No nausea, No vomiting, No diarrhea, No constipation, No GI bleeding, No problem reported Musculoskeletal: No joint pain, No muscle pain, No swelling, No calf pain, No problem reported Genitourinary - Male: No hematuria, No dysuria, No urinary frequency, No urinary urgency Neurologic: No memory loss, No paralysis, No weakness, No numbness/tingling , No vertigo, No balance problems, No problem reported Psychiatric: No depression symptoms, No anhedonism, No anxiety, No insomnia , No substance abuse, No problem reported Endocrine: No fatigue, No excessive thirst, No excessive urination, No problem reported Hematologic / Lymphatic: No abnormal bleeding/bruising, No clotting problems , No swollen lymph nodes, No night sweats, No problem reported Integumentary: + rash (venous stasis changes bilaterally), No itch, No new/ changing skin lesions, No color change, No bleeding, No problem reported Physical Exam: General Appearance: WD/WN, no apparent distress Eyes: normal inspection, EOMI, sclerae normal ENT: normal ENT inspection, hearing grossly normal, pharynx normal Neck: supple, no adenopathy, no JVD, trachea midline Respiratory/Chest: chest non-tender, lungs clear, no respiratory distress, no accessory muscle use, + decreased breath sounds (baseline) Cardiovascular: no edema, no gallop, no JVD, no murmur, normal peripheral pulses, + irregularly irregular Abdomen / GI: normal bowel sounds, non tender, soft, no organomegaly Extremities: normal inspection, no calf tenderness, normal capillary refill , no pedal edema, normal range of motion, pelvis stable 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, alert, normal mood/affect , normal reflexes, oriented x 3, + motor weakness (generalized, at baseline though) Skin: warm/dry, no rash, + rash (venous stasis changes bilaterally) Lymphatic: no adenopathy Hospital Course 81-year-old male with symptomatic anemia of undetermined source, h/o CKD, chronic foot wound, atrial flutter Anemia: acute on chronic, unclear etiology, EGD normal, no bleeding Hb 7.8 in the AM, repeat was 8.4 in the afternoon, no signs of bleeding was transfused 2 units of PRBC on admission and Hb has been stable colonoscopy on 03/15, multiple polyps, 6-8mm in size, no masses, no active bleeding can consider capsule endoscopy, but discussed with Dr. Rebolledo, unsure of what could be done with results if he had a small bowel lesion recommend to continue to transfuse as needed as outpatient Foot wound: healing well, seen by ID, he completed course of antibiotics of several weeks duration no further antibiotics at this time, follow for wound healing CKD stage IV: Cr stable at 1.7, no further fluids needed continue home meds, follow up with Dr. Dan as scheduled DM: Lantus and sliding scale COPD: no exacerbation Atrial fibrillation: Coumadin held, INR 1.9, rate controlled, can now continue Coumadin on d/c full code Total Time Spent: Greater than 30 minutes This includes examination of the patient, discharge planning, medication reconciliation, and communication with other providers. Discharge Instructions Please refer to the electronic Patient Visit Report (Discharge Instructions) for additional information. Follow-Up Dr. Harper in one week Dr. Dan in several weeks Dr. Rebolledo if interested in capsule endoscopy Additional Copies To Jesse Rebolledo D.O.; Winston Harper M.D.; Robert Dan D.O.
[2017-03-23] MEDS ORDERED: DAPT500I IV (13:10)
[2017-03-23] MEDS ORDERED: FRS/40 PO (13:51)
[2017-03-23] MEDS ORDERED: BUDE1SUS INH (13:51)
[2017-03-23] MEDS ORDERED: CPR500 PO (13:51)
[2017-04-01] MEDS ORDERED: VNTHFA/IN INH (04:38)
[2017-04-01] MEDS ORDERED: TAMS0.4C38 PO (08:25)
[2017-04-01] MEDS ORDERED: SIMV20TA2 PO (08:25)
[2017-04-01] MEDS ORDERED: IPRASOL4 INH (08:25)
[2017-04-01] MEDS ORDERED: OXGN (08:25)
[2017-04-01] MEDS ORDERED: LEVO100T7 PO (08:25)
[2017-04-01] MEDS ORDERED: CMD5 PO ×2 (08:43→16:13)
[2017-04-01] MEDS ORDERED: ERGO500037 PO (08:43)
[2017-05-30] MEDS ORDERED: FERR1TAB23 (11:27)
[2017-06-21] MEDS ORDERED: HUMALOG MIX SQ (13:55)
== END 2017-03-15 17:45 | disposition home or self-care (01) | DRG 812 ==
LOC: C.MS2W 16:43 → UNDOADMIN 16:43
PROVIDERS: ADMIT Internal Medicine; ATTEND Internal Medicine
PROC: 0DJ08ZZ Inspection of Upper Intestinal Tract, Via Natural or Artificial Opening Endoscopic (ICD-10-PCS; principal; 2017-03-14 12:13)
PROC: 0DJD8ZZ Inspection of Lower Intestinal Tract, Via Natural or Artificial Opening Endoscopic (ICD-10-PCS; 2017-03-15)
DX: D50.9 Iron deficiency anemia, unspecified (principal); N18.4 Chronic kidney disease, stage 4 (severe); D63.1 Anemia in chronic kidney disease; D12.5 Benign neoplasm of sigmoid colon; D12.2 Benign neoplasm of ascending colon; D12.0 Benign neoplasm of cecum; K57.90 Diverticulosis of intestine, part unspecified, without perforation or abscess without bleeding; K64.8 Other hemorrhoids; I48.91 Unspecified atrial fibrillation; I12.9 Hypertensive chronic kidney disease with stage 1 through stage 4 chronic kidney disease, or unspecified chronic kidney disease; J44.9 Chronic obstructive pulmonary disease, unspecified; M60.9 Myositis, unspecified; E11.22 Type 2 diabetes mellitus with diabetic chronic kidney disease; E11.40 Type 2 diabetes mellitus with diabetic neuropathy, unspecified; E11.621 Type 2 diabetes mellitus with foot ulcer; E78.5 Hyperlipidemia, unspecified; E03.9 Hypothyroidism, unspecified; Z99.81 Dependence on supplemental oxygen; Z95.1 Presence of aortocoronary bypass graft; Z86.14 Personal history of Methicillin resistant Staphylococcus aureus infection; Z79.01 Long term (current) use of anticoagulants; Z79.2 Long term (current) use of antibiotics; Z79.51 Long term (current) use of inhaled steroids; Z79.4 Long term (current) use of insulin; Z79.899 Other long term (current) drug therapy

== ENCOUNTER → 2017-03-13 | Outpatient (CLI) | payer OTHER ==
[~2017-03-13] MED LIST changes: +BUDE1SUS; -BUDE1SUS INH; -BUDE1SUS NEB; -CEFD1CAP14 PO; -CHOL1000 PO; -CIPR1TAB10 PO; -CIPR1TAB11 PO; -CPR/500 PO; -CPR500 PO; -DAPT500I IV; -DOXY100C76 PO; -FERR1TAB23 PO; -FURO-85 PO; -HMLI7525 SC; -HUMALOG MIX SQ; -HYDR-4079 PO; -INSDGIPEN SC; -LSX40 PO; -MCTP/85 EXT; -NF1094 IV; -NYSP EXT; -PROBCAP PO; -VNTHFA/IN INH; -WARF5TAB7 PO
[2017-03-13 14:23] LABS: BASO % 0.2 %; BASO ABS # 0.01 K/uL (0-0.2); HEMATOCRIT 22.8 % (42-52); IG% 0.2 %; LYMPH % 14.6 %; LYMPH ABS # 0.83 K/uL (1.2-3.4); MEAN CELL VOLUME 89.8 fL (80-100); MEAN CORPUSCULAR HEMOGLOBIN 28.7 pg (25-34); MEAN PLATELET VOLUME 9.7 fL (7.4-10.4); MONO % 13.4 %; NEUT % 68.6 %; PLATELET COUNT 127 K/uL (130-400); RED BLOOD COUNT 2.54 M/uL (4.7-6.1); WHITE BLOOD COUNT 5.68 K/uL (4.8-10.8)
[2017-03-13 14:29] LABS: COMPLETE YES
[2017-03-13 14:57] LABS: BLOOD UREA NITROGEN 76 mg/dl (7-18); BUN/CREATININE RATIO 31.8 (10-20); CALCIUM 8.6 mg/dl (8.5-10.1); CARBON DIOXIDE 21 mmol/L (21-32); CHLORIDE 108 mmol/L (98-107); GLUCOSE 94 mg/dl (70-99); POTASSIUM 4.4 mmol/L (3.5-5.1); SODIUM 140 mmol/L (136-145)
[2017-03-13 15:02] LABS: FERRITIN 89.1 ng/ml (8.0-388.0); PHOSPHORUS 3.9 mg/dl (2.5-4.9); TOTAL IRON BINDING CAPACITY 326 mcg/dl (250-450)
== END | disposition home or self-care (01) ==
LOC: C.LABBC 09:13
PROVIDERS: ATTEND Internal Medicine Nephrology
DX: D64.9 Anemia, unspecified (principal)

== ENCOUNTER 2017-03-19 04:20 | Inpatient (IN) | payer OTHER ==
[~2017-03-19] VITALS: Ht 175.3 cm; Wt 129.0 kg
[2017-03-19] VITALS (9 sets, daily range): BP systolic 94–110; BP diastolic 56–66; PULSE 62–91; TEMP 36.8–37.9; O2SAT 95–98; BMI 41.5
[~2017-03-19 04:20] MED LIST changes: +BUDE1SUS INH; -ECRCR EXT; -LINE1TAB6 PO
[2017-03-19] MEDS ORDERED: CEFEPIME IV 1,000 MG in DEXTROSE 5% 100ML 100 ML IV STA (04:35)
[2017-03-19] MEDS ORDERED: VANCOMYCIN INJ 2,400 MG in SODIUM CHLORIDE 0.9% 500ML 500 ML IV STA (04:35)
[2017-03-19] MEDS ORDERED: SODIUM CHLORIDE 0.9% 500ML 500 ML IV STA ×2 (04:39→05:41)
[2017-03-19] MEDS ORDERED: LEVAQUIN 500MG / 100ML D5W IV ONE (04:45)
[2017-03-19] MEDS ORDERED: ACETAMINOPHEN 500 MG TAB PO STA (04:54)
[2017-03-19 04:57] LABS: ISTAT HEMOGLOBIN 8.8 g/dl (14.0-18.0); ISTAT IONIZED CALCIUM 1.08 mmol/l (1.12-1.32)
[2017-03-19 05:03] LABS: HEMATOCRIT 26.9 % (42-52); MEAN CELL VOLUME 87.6 fL (80-100); MEAN CORPUSCULAR HEMOGLOBIN 27.4 pg (25-34); MEAN CORPUSCULAR HGB CONC 31.2 g/dl (32-36); MEAN PLATELET VOLUME 8.8 fL (7.4-10.4); PLATELET COUNT 369 K/uL (130-400); RED BLOOD COUNT 3.07 M/uL (4.7-6.1); WHITE BLOOD COUNT 26.22 K/uL (4.8-10.8)
[2017-03-19 05:14] LABS: INR 1.4 (0.9-1.1); PROTHROMBIN TIME (PATIENT) 15.2 SECONDS (9.0-12.0)
[2017-03-19 05:22] LABS: BUN/CREATININE RATIO 19.2 (10-20); CALCIUM 8.6 mg/dl (8.5-10.1); CREATININE 2.1 mg/dl (0.60-1.40); MAGNESIUM 1.9 mg/dl (1.8-2.4)
[2017-03-19 05:36] LABS: BASO % 0.1 %; BASO ABS # 0.02 K/uL (0-0.2); CKMB/CK RATIO 1.5 (0-3.0); COMPLETE YES; EOS % 0.1 %; IG% 1.1 %; LYMPH ABS # 1.58 K/uL (1.2-3.4); NEUT % 89.7 %; POLYCHROMASIA 1+
[2017-03-19] MEDS ORDERED: [UNRECOGNIZED DRUG - OTHER] PRN (06:30)
[2017-03-19] MEDS ORDERED: MoRPHine SULFATE 2 MG/ML CARP IV PRN (06:30)
[2017-03-19] MEDS ORDERED: ACETAMINOPHEN 325 MG TAB PO PRN (06:30)
[2017-03-19] MEDS ORDERED: POLYETHYLENE (MIRALAX) 17 GM PACK PO PRN (06:30)
[2017-03-19] MEDS ORDERED: ONDANSETRON INJ 2 MG/ML 2 ML VIAL IV PRN (06:30)
[2017-03-19] MEDS ORDERED: NITROGLYCERIN 0.4 MG SL PER TAB CHARGE SL PRN (06:30)
--- NOTE | 2017-03-19 06:31 | EMERGENCY ROOM VISIT NOTE ---
History Report prepared by Derick: Israel Hurtado Under the Supervision of: Dr. Bam Hopper D.O. First contact with patient: 04:23 Chief Complaint: SHORTNESS OF BREATH Stated Complaint: BREATHING DIFFICULTY History of Present Illness The patient is a 81 year old male who presents to the Emergency Room with complaints of worsening shortness of breath starting earlier tonight. He reports that he was discharged from the hospital on March 17, 2017 with symptomatic anemia. The patient states he was transfused 2 units and was given Lovenox injections. The patient reports that he has been experiencing a productive cough with yellow mucous starting the day after his visit. He states that he started to experience a fever of 101 and shortness of breath earlier tonight, which prompted him to visit the ED. The patient states that he typically wears 1.5 L of oxygen. He admits to taking Warfarin for his atrial fibrillation, but does not remember his dosage. The patient states that he has a history of COPD and congestive heart failure. He admits that he knows where he is and what year it is. The patient denies taking Lovenox injections since his last visit and any new swelling to his legs. Source of History: patient Onset: earlier tonight Position: other (global) Timing: worsening Associated Symptoms: + fevers, + cough Review of Systems See HPI for pertinent positives & negatives. A total of 10 systems reviewed and were otherwise negative. 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 (17) Painful diabetic neuropathy (18) Pulmonary hypertension (19) Secondary hyperparathyroidism (20) Shortness of breath (21) SIRS (systemic inflammatory response syndrome) (22) Sleep apnea (23) Stage 3 chronic kidney disease Surgical Problems: (1) Hx of CABG Family History FH: diabetes mellitus FH: hypertension Social History Smoking Status: Never Smoker Marital Status: Housing Status: lives with significant other Occupation Status: retired Current/Historical Medications Scheduled Ergocalciferol (Vitamin D 84405 Unit), 1 CAP PO WK Furosemide (Lasix), 40 MG PO BID Insulin Isophan/Regular (Humulin 70/30), 20 UNITS SC BID Levothyroxine Sodium (Levothyroxine Sodium), 100 MCG PO DAILY Miconazole Nitrate (Desenex Shake Powder), 1 APPLN EXT DAILY Simvastatin (Zocor), 20 MG PO DAILY Tamsulosin Hcl (Flomax), 0.4 MG PO DAILY Warfarin Sod (Coumadin), 1 TAB PO [id number]-- Warfarin Sod (Coumadin), 1 TAB PO -sun Scheduled PRN Albuterol Hfa (Ventolin Hfa), 1-2 PUFFS INH Q6H PRN for SOB/Wheezing Budesonide (Inhalation) (Pulmicort), 1 DOSE INH UD PRN for SOB/Wheezing Home O2 Therapy (Oxygen), 1.5 LITER NA HS PRN for Shortness of Breath Ipratropium-Albuterol (Duoneb), 1 TREATMENT INH Q4H PRN for Shortness of Breath Allergies Coded Allergies: Chlorpheniramine (Unverified Allergy, Unknown, ., 03/19/17) Phenylpropanolamine (Unverified Allergy, Unknown, ., 03/19/17) Physical Exam Vital Signs Date Time Temp Pulse Resp B/P (MAP) Pulse Ox O2 Delivery O2 Flow Rate FiO2 03/19/17 06:45 88 03/19/17 06:30 37.4 93 24 119/57 95 Nasal Cannula 3.0 03/19/17 06:19 98/47 03/19/17 06:06 89 31 97 Nasal Cannula 3.0 03/19/17 05:40 106/56 03/19/17 05:36 89 29 94 Nasal Cannula 3.0 03/19/17 05:31 94/41 03/19/17 05:20 101 33 95 Nasal Cannula 3.0 03/19/17 05:17 147/65 03/19/17 04:50 118/68 03/19/17 04:45 101 03/19/17 04:33 98 28 93 Nasal Cannula 3.0 03/19/17 04:28 90 3.0 03/19/17 04:20 89 Nasal Cannula 1.5 03/19/17 04:20 39.2 106 26 122/79 89 Nasal Cannula 1.5 Physical Exam GENERAL: sitting up, alert, ill appearing, moderate distress EYE EXAM: normal conjunctiva, PERRL and EOM's grossly intact OROPHARYNX: no exudate, no erythema, lips, buccal mucosa, and tongue normal and mucous membranes are dry NECK: No JVD, supple, no nuchal rigidity, no adenopathy, non-tender LUNGS: Poor air movement. Diminished at the basis. Normal chest wall mechanics HEART: Tachycardic. +NAHUN, S1 normal and S2 normal ABDOMEN: abdomen soft, non-tender, normo-active bowel sounds, no masses, no rebound or guarding. BACK: Back is symmetrical on inspection and there is no deformity, no midline tenderness, no CVA tenderness. SKIN: no rashes and no bruising UPPER EXTREMITIES: upper extremities are grossly normal. LOWER EXTREMITIES: Pitting edema bilaterally. Calves are equal bilaterally. NEURO EXAM: Normal sensorium, cranial nerves II-XII grossly intact, normal speech, no gross weakness of arms, no gross weakness of legs. Gross sensation intact. Medical Decision & Procedures ER Provider Diagnostic Interpretation: Radiology results as stated below per my review and the my interpretation: TWO VIEW OF THE CHEST: Infiltrate in the left lower lobe. No pneumothorax. Laboratory Results 03/19/17 04:45 Red Blood Count 3.07, Mean Corpuscular Volume 87.6, Mean Corpuscular Hemoglobin 27.4, Mean Corpuscular Hemoglobin Concent 31.2, Mean Platelet Volume 8.8, Neutrophils (%) (Auto) 89.7, Lymphocytes (%) (Auto) 6.0, Monocytes (%) (Auto) 3.0, Eosinophils (%) (Auto) 0.1, Basophils (%) (Auto) 0.1, Neutrophils # (Auto) 23.52, Lymphocytes # (Auto) 1.58, Monocytes # (Auto) 0.79, Eosinophils # (Auto) 0.03, Basophils # (Auto) 0.02 03/19/17 04:45 Test 03/19/17 04:40 03/19/17 04:45 Bedside Lactic Acid Venous 2.43 mmol/L (0.90-1.70) White Blood Count 26.22 K/uL (4.8-10.8) Red Blood Count 3.07 M/uL (4.7-6.1) Hemoglobin 8.4 g/dL (14.0-18.0) Hematocrit 26.9 % (42-52) Mean Corpuscular Volume 87.6 fL (80-100) Mean Corpuscular Hemoglobin 27.4 pg (25-34) Mean Corpuscular Hemoglobin Concent 31.2 g/dl (32-36) Platelet Count 369 K/uL (130-400) Mean Platelet Volume 8.8 fL (7.4-10.4) Neutrophils (%) (Auto) 89.7 % Lymphocytes (%) (Auto) 6.0 % Monocytes (%) (Auto) 3.0 % Eosinophils (%) (Auto) 0.1 % Basophils (%) (Auto) 0.1 % Neutrophils # (Auto) 23.52 K/uL (1.4-6.5) Lymphocytes # (Auto) 1.58 K/uL (1.2-3.4) Monocytes # (Auto) 0.79 K/uL (0.11-0.59) Eosinophils # (Auto) 0.03 K/uL (0-0.5) Basophils # (Auto) 0.02 K/uL (0-0.2) Bedside Hemoglobin 8.8 g/dl (14.0-18.0) Bedside Hematocrit 26 % (42-52) RDW Standard Deviation 50.2 fL (36.4-46.3) RDW Coefficient of Variation 15.8 % (11.5-14.5) Immature Granulocyte % (Auto) 1.1 % Immature Granulocyte # (Auto) 0.28 K/uL (0.00-0.02) Nucleated RBC Absolute Count (auto) 0.20 K/uL (0-0) Nucleated Red Blood Cells % 0.7 % Polychromasia 1+ Prothrombin Time 15.2 SECONDS (9.0-12.0) Prothromb Time International Ratio 1.4 (0.9-1.1) Bedside Sodium 137 mEq/L (135-144) Bedside Potassium 5.0 mEq/L (3.3-5.0) Bedside Chloride 103 mEq/L (101-112) Bedside Total CO2 22 mEq/l (24-31) Anion Gap 18.0 mmol/L (16-25) Bedside Blood Urea Nitrogen 36 mg/dl (7-18) Bedside Creatinine 2.0 mg/dl (0.6-1.3) Est Creatinine Clear Calc Drug Dose 36.5 ml/min Estimated GFR () 33.2 Estimated GFR (Non- 28.7 BUN/Creatinine Ratio 19.2 (10-20) Bedside Glucose (other) 192 mg/dl (70-99) Calcium Level 8.6 mg/dl (8.5-10.1) Bedside Ionized Calcium (Juan M) 1.08 mmol/l (1.12-1.32) Magnesium Level 1.9 mg/dl (1.8-2.4) Total Bilirubin 1.0 mg/dl (0.2-1) Direct Bilirubin 0.5 mg/dl (0-0.2) Aspartate Amino Transf (AST/SGOT) 54 U/L (15-37) Alanine Aminotransferase (ALT/SGPT) 57 U/L (12-78) Alkaline Phosphatase 720 U/L (45-117) Total Creatine Kinase 95 U/L (39-308) Creatine Kinase MB 1.4 ng/ml (0.5-3.6) Creatine Kinase MB Ratio 1.5 (0-3.0) Troponin I 0.090 ng/ml (0-0.045) Total Protein 6.9 gm/dl (6.4-8.2) Albumin 3.3 gm/dl (3.4-5.0) Laboratory results per my review. Medications Administered Medications (Trade) Dose Ordered Sig/Sukhwinder Route Start Time Stop Time Status Last Admin Dose Admin Levofloxacin (Levaquin / D5W) 500 mg NOW ONCE IV 03/19/17 04:45 03/19/17 04:46 DC 03/19/17 04:52 500 MG Cefepime HCl 1000 mg/Dextrose 111.3 ml @ 200 mls/hr NOW STAT IV 03/19/17 04:35 03/19/17 05:08 DC 03/19/17 05:23 200 MLS/HR Vancomycin HCl 2400 mg/Sodium Chloride 548 ml @ 200 mls/hr ONE STAT IV 03/19/17 04:35 03/19/17 07:19 03/19/17 06:00 200 MLS/HR Sodium Chloride 500 ml @ 999 mls/hr Q31M STAT IV 03/19/17 04:39 03/19/17 05:09 DC 03/19/17 04:52 999 MLS/HR Acetaminophen (Tylenol Tab) 1,000 mg NOW STAT PO 03/19/17 04:54 03/19/17 04:55 DC 03/19/17 05:02 1,000 MG Sodium Chloride 500 ml @ 999 mls/hr Q31M STAT IV 03/19/17 05:41 03/19/17 06:11 DC 03/19/17 06:00 999 MLS/HR ECG Indication: chest pain Rate (beats per minute): 103 Rhythm: atrial fibrillation (RBR) Findings: ST depression (Lateral), other (normal axis, poor baseline) ED Course ED COURSE: Vital signs were reviewed and showed hypoxic, tachycardic, febrile. The patients medical record was reviewed The above diagnostic studies were performed and reviewed. ED treatments and interventions as stated above. 0426: The patient was evaluated in room A03. A complete history and physical examination was performed. 0435: Vancomycin HCl 2400 mg/ Sodium chloride 548 ml @ 200 mls/hr IV, Cefepime HCl 1000 mg/Dextrose 111.3 ml @ 200 mls/hr IV. 0439: Sodium Chloride 500 ml @ 999 mls/hr IV. 0445: Levofloxacin 500 mg IV. 0454: Tylenol Tab 1000 mg PO. 0527: I reevaluated the patient and he is resting comfortably. I discussed the results and updated him on the treatment plan. He understands and agrees to admission. The patient will be further evaluated. 0540: I discussed the patients case with Dr. Barrios, [facility] Hospitalist. He understands the patient's conditions and agrees to accept the patient. The patient will be further evaluated. 0541: Sodium Chloride 500 ml @ 999 mls/hr IV. Medical Decision Differential diagnosis includes etiologies such as sepsis, UTI, pneumonia, metabolic, electrolyte abnormalities, cardiac sources, intracerebral event, toxicologic, neurologic, as well as others were entertained. Medication Reconciliation: I attest that I have personally reviewed the patient' s current medication list. Blood pressure screening: Patient was found to have normal blood pressure on screening and does not require follow-up. Patient is an 81-year-old male who presents the ER for fever associated with cough, shortness of breath and hypoxia. He has an increasing oxygen requirement. Chest x-ray on the lateral supports an infiltrate. He does have a leukocytosis of 26,000. Lactic acid elevated 2.4. He is covered with broad- spectrum antibiotics including Levaquin, vancomycin and cefepime. Patient rested comfortably in the ER. I was in its internal medicine with sepsis secondary to pneumonia. Patient did drop his blood pressure into the 90s but this improved with boluses of normal saline. Consults Time Called: 0540 Consulting Physician: Dr. Barrios [facility] Hospitalist Returned Call: 0540 I discussed the patients case with Dr. Barrios [facility] Hospitalist. He understands the patient's conditions and agrees to accept the patient. The patient will be further evaluated. Impression Primary Impression: Sepsis Additional Impressions: Pneumonia Hypoxia Leukocytosis Lactic acid acidosis Chronic kidney disease Hypotension Anemia I have personally spent 35 minutes of critical care time in the direct management of this patient. This includes bedside care, interpretation of diagnostic studies, and testing, discussion with consultants, patient, and family members, and other required patient management activities. This 35 minutes is in excess of all separately billable procedures. Scribe Attestation The scribe's documentation has been prepared under my direction and personally reviewed by me in its entirety. I confirm that the note above accurately reflects all work, treatment, procedures, and medical decision making performed by me. Departure Information Dispostion Being Evaluated By Hospitalist (Dr. Barrios [facility] Hospitalist) Referrals Winston Harper M.D. (PCP) Patient Instructions My [facility] Problem Qualifiers Primary Impression: Sepsis Sepsis type: sepsis due to unspecified organism Qualified Codes: A41.9 - Sepsis, unspecified organism Additional Impressions: Pneumonia Pneumonia type: due to unspecified organism Laterality: unspecified laterality Lung location: unspecified part of lung Qualified Codes: J18.9 - Pneumonia, unspecified organism Leukocytosis Leukocytosis type: unspecified Qualified Codes: D72.829 - Elevated white blood cell count, unspecified Chronic kidney disease Chronic kidney disease stage: unspecified stage Qualified Codes: N18.9 - Chronic kidney disease, unspecified Hypotension Hypotension type: unspecified hypotension type Qualified Codes: I95.9 - Hypotension, unspecified Anemia Anemia type: unspecified type Qualified Codes: D64.9 - Anemia, unspecified
--- NOTE | 2017-03-19 06:40 | History and Physical ---
History & Physical Date & Time of Service: Mar 19, 2017 at 06:39 Chief Complaint: Breathing Difficulty Primary Care Physician: Winston Harper M.D. History of Present Illness Source: patient 89-year-old male with past medical history of atrial fibrillation, coronary artery disease status post CABG, CHF, hypertension, hypothyroidism, diabetes, elevated LFTs, sleep apnea, pulmonary hypertension, secondary hyperparathyroidism, stage III kidney disease presented to the ER with complaints of acute onset shortness of breath that started around midnight. He denies any chest pain however complains of fevers and chills associated with a cough which started yesterday. He has a history of COPD and uses 1.5 L of oxygen chronically at bedtime . He was recently admitted at [facility] from 03/13 to 03/17 presented to medical anemia and had received 2 units of blood. Past Medical/Surgical History Medical Problems: (1) A-fib Status: Chronic (2) Anemia Status: Chronic (3) ASCVD (arteriosclerotic cardiovascular disease) Status: Chronic (4) CHF (congestive heart failure) Status: Chronic (5) COPD (chronic obstructive pulmonary disease) Status: Chronic (6) Dermatitis, seborrheic Status: Chronic (7) Diabetes Status: Chronic (8) Elevated alkaline phosphatase level Status: Chronic (9) Elevated LFTs Status: Chronic (10) Hyperlipidemia Status: Chronic (11) Hypertension Status: Chronic (12) Hypothyroid Status: Chronic (13) Ichthyosis Status: Chronic (14) Painful diabetic neuropathy Status: Chronic (15) Pulmonary hypertension Status: Chronic (16) Secondary hyperparathyroidism Status: Chronic (17) Sleep apnea Status: Chronic (18) Stage 3 chronic kidney disease Status: Chronic Surgical Problems: (1) Hx of CABG Status: Resolved Family History FH: diabetes mellitus FH: hypertension Social History Smoking Status: Never Smoker Marital Status: Occupational Status: retired Multi-Drug Resistant Organisms History of MDRO: Yes Type of MDRO: MRSA Allergies Coded Allergies: Chlorpheniramine (Unverified Allergy, Unknown, ., 03/19/17) Phenylpropanolamine (Unverified Allergy, Unknown, ., 03/19/17) Home Medications Scheduled Budesonide (Inhalation) (Pulmicort), 1 DOSE INH BID Ciprofloxacin (Ciprofloxacin HCl), 500 MG PO BID Daptomycin (Daptomycin), 1,000 MG IV DAILY Ergocalciferol (Vitamin D 87976 Unit), 1 CAP PO WK Furosemide (Lasix), 20 MG PO QAM Insulin Isophan/Regular (Humulin 70/30), 20 UNITS SC BID Levothyroxine Sodium (Levothyroxine Sodium), 100 MCG PO DAILY Miconazole Nitrate (Desenex Shake Powder), 1 APPLN EXT DAILY Simvastatin (Zocor), 20 MG PO DAILY Tamsulosin Hcl (Flomax), 0.4 MG PO DAILY Warfarin Sod (Coumadin), 1 TAB PO [id number]-- Warfarin Sod (Coumadin), 1 TAB PO -sun Scheduled PRN Albuterol Hfa (Ventolin Hfa), 1-2 PUFFS INH Q6H PRN for SOB/Wheezing Home O2 Therapy (Oxygen), 1.5 LITER NA HS PRN for Shortness of Breath Ipratropium-Albuterol (Duoneb), 1 TREATMENT INH Q4H PRN for Shortness of Breath Review of Systems Constitutional: + fever, + chills Eyes: No worsening of vision ENT: No hearing loss Respiratory: + cough, + sputum, + shortness of breath Cardiovascular: No chest pain, No orthopnea, No palpitations Abdomen: + problem reported (dark stools), No pain, No nausea, No vomiting Musculoskeletal: No joint pain Genitourinary - Male: No hematuria, No dysuria, No urinary frequency Neurologic: No memory loss Psychiatric: No depression symptoms Endocrine: No fatigue Integumentary: No rash Physical Exam Vital Signs Date Time Temp Pulse Resp B/P (MAP) Pulse Ox O2 Delivery O2 Flow Rate FiO2 03/19/17 05:31 94/41 03/19/17 05:20 101 33 95 Nasal Cannula 3.0 03/19/17 05:17 147/65 03/19/17 04:50 118/68 03/19/17 04:45 101 03/19/17 04:33 98 28 93 Nasal Cannula 3.0 03/19/17 04:28 90 3.0 03/19/17 04:20 89 Nasal Cannula 1.5 03/19/17 04:20 39.2 106 26 122/79 89 Nasal Cannula 1.5 General Appearance: + mild distress Head: normocephalic ENT: hearing grossly normal Neck: supple Respiratory/Chest: no respiratory distress, no accessory muscle use, + crackles (Right base) Cardiovascular: + irregularly irregular Abdomen/GI: normal bowel sounds, non tender, soft Extremities/Musculoskelatal: + pedal edema Neurologic/Psych: alert, normal mood/affect, oriented x 3 Skin: normal color Diagnostics Laboratory Results Results Past 24 Hours Test 03/19/17 04:40 03/19/17 04:45 Range/Units Bedside Lactic Acid Venous 2.43 0.90-1.70 mmol/L White Blood Count 26.22 4.8-10.8 K/uL Red Blood Count 3.07 4.7-6.1 M/uL Hemoglobin 8.4 14.0-18.0 g/dL Hematocrit 26.9 42-52 % Mean Corpuscular Volume 87.6 80-100 fL Mean Corpuscular Hemoglobin 27.4 25-34 pg Mean Corpuscular Hemoglobin Concent 31.2 32-36 g/dl Platelet Count 369 130-400 K/uL Mean Platelet Volume 8.8 7.4-10.4 fL Neutrophils (%) (Auto) 89.7 % Lymphocytes (%) (Auto) 6.0 % Monocytes (%) (Auto) 3.0 % Eosinophils (%) (Auto) 0.1 % Basophils (%) (Auto) 0.1 % Neutrophils # (Auto) 23.52 1.4-6.5 K/uL Lymphocytes # (Auto) 1.58 1.2-3.4 K/uL Monocytes # (Auto) 0.79 0.11-0.59 K/uL Eosinophils # (Auto) 0.03 0-0.5 K/uL Basophils # (Auto) 0.02 0-0.2 K/uL Bedside Hemoglobin 8.8 14.0-18.0 g/dl Bedside Hematocrit 26 42-52 % RDW Standard Deviation 50.2 36.4-46.3 fL RDW Coefficient of Variation 15.8 11.5-14.5 % Immature Granulocyte % (Auto) 1.1 % Immature Granulocyte # (Auto) 0.28 0.00-0.02 K/uL Nucleated RBC Absolute Count (auto) 0.20 0-0 K/uL Nucleated Red Blood Cells % 0.7 % Polychromasia 1+ Prothrombin Time 15.2 9.0-12.0 SECONDS Prothromb Time International Ratio 1.4 0.9-1.1 Bedside Sodium 137 135-144 mEq/L Sodium Level 139 136-145 mmol/L Bedside Potassium 5.0 3.3-5.0 mEq/L Potassium Level 5.0 3.5-5.1 mmol/L Bedside Chloride 103 101-112 mEq/L Chloride Level 105 98-107 mmol/L Carbon Dioxide Level 25 21-32 mmol/L Bedside Total CO2 22 24-31 mEq/l Anion Gap 18.0 16-25 mmol/L Bedside Blood Urea Nitrogen 36 7-18 mg/dl Blood Urea Nitrogen 40 7-18 mg/dl Creatinine 2.10 0.60-1.40 mg/dl Bedside Creatinine 2.0 0.6-1.3 mg/dl Est Creatinine Clear Calc Drug Dose 36.5 ml/min Estimated GFR () 33.2 Estimated GFR (Non- 28.7 BUN/Creatinine Ratio 19.2 10-20 Bedside Glucose (other) 192 70-99 mg/dl Random Glucose 187 70-99 mg/dl Calcium Level 8.6 8.5-10.1 mg/dl Bedside Ionized Calcium (Juan M) 1.08 1.12-1.32 mmol/l Magnesium Level 1.9 1.8-2.4 mg/dl Total Bilirubin 1.0 0.2-1 mg/dl Direct Bilirubin 0.5 0-0.2 mg/dl Aspartate Amino Transf (AST/SGOT) 54 15-37 U/L Alanine Aminotransferase (ALT/SGPT) 57 12-78 U/L Alkaline Phosphatase 720 45-117 U/L Total Creatine Kinase 95 39-308 U/L Creatine Kinase MB 1.4 0.5-3.6 ng/ml Creatine Kinase MB Ratio 1.5 0-3.0 Troponin I 0.090 0-0.045 ng/ml Total Protein 6.9 6.4-8.2 gm/dl Albumin 3.3 3.4-5.0 gm/dl Microbiology Results 03/19/17 Blood Culture, Received Pending 03/19/17 Blood Culture, Received Pending Diagnostic Radiology CHEST 2 VIEWS ROUTINE CLINICAL HISTORY: sob COMPARISON STUDY: 01/12/2017 FINDINGS: The heart is enlarged. Postsurgical changes are again evident involving the chest wall. There is a small right pleural effusion. The left-sided PICC catheter has been removed. There is mild pulmonary vascular congestion. There is no lobar consolidation.[ There is a 17 mm opacity visualized posterio-laterally only on the lateral projection. This may represent a summation. Short-term radiographic follow-up is recommended. IMPRESSION: 1. Cardiomegaly and mild pulmonary vascular congestion. Small right pleural effusion. 2. 17 mm opacity visualized posterio-laterally on the lateral view. This may represent a summation. Short-term radiographic follow-up is recommended. Electronically signed by: Chris Odonnell M.D. 03/19/2017 7:06 AM Dictated Date/Time: 03/19/2017 7:03 AM EKG Atrial fibrillation with rapid ventricular response Nonspecific ST and T wave abnormality Abnormal ECG When compared with ECG of 02-JAN-2017 13:48, Vent. rate has increased BY 55 BPM Incomplete left bundle block is no longer Present Impression Assessment and Plan 89-year-old male with past medical history of atrial fibrillation, coronary artery disease status post CABG, CHF, hypertension, hypothyroidism, diabetes, elevated LFTs, sleep apnea, pulmonary hypertension, secondary hyperparathyroidism, stage III kidney disease presented to the ER with complaints of acute onset shortness of breath that started around midnight. Acute respiratory distress : likely sec to pneumonia/ H/o COPD - CXR: 1. Cardiomegaly and mild pulmonary vascular congestion. Small right pleural effusion. 2. 17 mm opacity visualized posterio-laterally on the lateral view. This may represent a summation. Short-term radiographic follow-up is recommended. - BC pending - Continue IV vancomycin, Zosyn, azithromycin - oxygen per protocol - duonebs - guaifenesin Anemia: hgb at 8.4 Hgb at dc 8.4 on 03/17/17 - Received 2 units of PRBC transfusion during last admission - colonoscopy on 03/15, multiple polyps, 6-8mm in size, no masses, no active bleeding - EGD normal - capsule endoscopy was not done during last admission and plan was to transfuse as an OP if hgb dropped - Coumadin Currently held Atrial fibrillation: - Rate controlled - Coumadin currently held CKD stage IV: - Cr at 2.1, baseline 1.7 - held lasix DM T2: ISS elevated alk phos: chronic hypothyroidism: - continue synthroid Full code Dispo: Admitted to [facility] Level of Care Telemetry Resuscitation Status FULL RESUSCITATION VTE Prophylaxis VTE Risk Assessment Done? Y/N: Yes Risk Level: Moderate Given or contraindicated: SCD's Resident Tracking Resident Involvement: Resident Care Provided Care Provided: Adult [facility] Medicine Assessment and Plan Attending Addendum: I physically seen and examined this patient, have supervised the medical residents activities, and agree with the H&P as noted above with the following exceptions: NONE The patient is awake, well-developed and adequately nourished, alert and oriented 3, normocephalic and atraumatic, lying in bed and in mild acute distress. HEENT--PERRL, EOMI, mucous membranes and oropharynx dry. Neck--supple, no JVD or bruits, thyroid normal, trachea midline, no adenopathy. Heart--irregularly irregular, no murmurs, rubs or gallops. Lungs--coarse breath sounds bilaterally, mild respiratory distress, no accessory muscle use. Abdomen--normal bowel sounds and soft, nontender and nondistended, no hernias or masses, no organomegaly. Extremities--no cyanosis, clubbing or edema. There are good distal pulses b/l. Dermatologic--normal skin turgor, normal color, warm and dry, no abnormal lymph nodes, no rash. Neurologic--cranial nerves II through XII grossly intact, motor and sensory examination normal. Rheumatologic--normal range of motion, nontender, muscles and joints. Psychiatric--normal affect. Assessment and Plan: 1. Acute respiratory failure with hypoxia--the patient will be admitted to the telemetry unit for close oxygen monitoring. Place on vancomycin IV per renal dosing, Zosyn 3.375 mg IV every 8 hours, azithromycin 500 mg IV daily and guaifenesin extended release 600 mg by mouth 3 times a day. Duo nebs 4 times a day while awake and every 2 hours when necessary. Symptomatic anemia with hemoglobin of 8.4. Had an EGD that was normal and a colonoscopy on March 15 that did not show any active bleeding. She will need a small bowel workup, either capsule endoscopy as discussed at last admission or a small bowel follow-through study.
[2017-03-19] MEDS ORDERED: VANCOMYCIN CONSULT ACTIVE PRN (07:00)
[2017-03-19] MEDS ORDERED: PIPERACILL/TAZOBAC CONSULT ACTIVE PRN (07:00)
--- NOTE | 2017-03-19 07:07 | DIAGNOSTIC IMAGING REPORT ---
CHEST 2 VIEWS ROUTINE CLINICAL HISTORY: sob COMPARISON STUDY: 01/12/2017 FINDINGS: The heart is enlarged. Postsurgical changes are again evident involving the chest wall. There is a small right pleural effusion. The left-sided PICC catheter has been removed. There is mild pulmonary vascular congestion. There is no lobar consolidation.[ There is a 17 mm opacity visualized posterio-laterally only on the lateral projection. This may represent a summation. Short-term radiographic follow-up is recommended. IMPRESSION: 1. Cardiomegaly and mild pulmonary vascular congestion. Small right pleural effusion. 2. 17 mm opacity visualized posterio-laterally on the lateral view. This may represent a summation. Short-term radiographic follow-up is recommended. Electronically signed by: Chris Odonnell M.D. 03/19/2017 7:06 AM Dictated Date/Time: 03/19/2017 7:03 AM
[2017-03-19] MEDS ORDERED: PIPERACILLIN/TAZOBACTAM 4.5 GM/100ML D5W IV STA (07:09)
[2017-03-19] MEDS: MICONAZOLE NITRATE POWDER 43 GM EXT SCH (09:00)
[2017-03-19] MEDS ORDERED: VANCOMYCIN INJ 1,000 MG in SODIUM CHLORIDE 0.9% 250ML 250 ML IV SCH (09:00)
[2017-03-19] MEDS: TAMSULOSIN HCL 0.4 MG CAP PO SCH (09:14)
[2017-03-19] MEDS: GUAIFENESIN 600 MG TABCR PO SCH ×2 (09:14→21:12)
[2017-03-19] MEDS: LEVOTHYROXINE 100 MCG TAB PO SCH (09:14)
[2017-03-19] MEDS: AZITHROMYCIN IV 500 MG in DEXTROSE 5% 250ML 250 ML IV SCH (09:14)
[2017-03-19] MEDS: SIMVASTATIN 20 MG TAB PO SCH (09:15)
[2017-03-19] MEDS: INSULIN ASPART 100 UNITS/ML 3 ML PEN SC SCH ×3 (11:38→21:15)
[2017-03-19] MEDS: PIPERACILL/TAZOBAC IV 4.5 GM in DEXTROSE 5% 100ML IV SCH ×2 (11:38→21:12)
[2017-03-19] MEDS ORDERED: PIPERACILL/TAZOBAC IV 3.375 GM in DEXTROSE 5% 100ML 100 ML IV SCH (12:00)
--- NOTE | 2017-03-19 12:04 | Pharmacy Progress Note ---
Pharmacy Abx Initial Consult Date of Service Mar 19, 2017. Pharmacy Dosing Scope Date of Consult: 03/19/17 Consultation requested by: Dr. Lizarraga Pharmacy is consulted to initiate Vancomycin IV dosing therapy for possible pneumonia secondary to COPD in an obese patient (BMI greater than 35kg/m2, BMI= 42kg/m2) with CKD Stage III, order appropriate labs and adjust drug dose/ frequency. Subjective The patient is a 81 year old male admitted on Mar 19, 2017 at 06:39. Objective Height (Feet): 5 Height (Inches): 9.00 Weight (Kilograms): 127.600 Vital Signs (Past 12Hrs) Vital Signs Past 12 Hours Date Time Temp Pulse Resp B/P (MAP) Pulse Ox O2 Delivery O2 Flow Rate FiO2 03/19/17 08:00 36.9 84 21 110/66 (81) 96 Nasal Cannula 3.0 03/19/17 08:00 96 Nasal Cannula 3.0 03/19/17 07:56 37.2 85 30 119/67 95 03/19/17 07:15 85 30 119/67 95 Nasal Cannula 3.0 03/19/17 07:04 95 Nasal Cannula 3.0 03/19/17 06:45 88 03/19/17 06:30 37.4 93 24 119/57 95 Nasal Cannula 3.0 03/19/17 06:19 98/47 03/19/17 06:06 89 31 97 Nasal Cannula 3.0 03/19/17 05:40 106/56 03/19/17 05:36 89 29 94 Nasal Cannula 3.0 03/19/17 05:31 94/41 03/19/17 05:20 101 33 95 Nasal Cannula 3.0 03/19/17 05:17 147/65 03/19/17 04:50 118/68 03/19/17 04:45 101 03/19/17 04:33 98 28 93 Nasal Cannula 3.0 03/19/17 04:28 90 3.0 03/19/17 04:20 89 Nasal Cannula 1.5 03/19/17 04:20 39.2 106 26 122/79 89 Nasal Cannula 1.5 Lab Results (24Hrs) Laboratory Tests (24 Hours) Test 03/19/17 04:45 White Blood Count 26.22 K/uL (4.8-10.8) H Red Blood Count 3.07 M/uL (4.7-6.1) L Hemoglobin 8.4 g/dL (14.0-18.0) L Hematocrit 26.9 % (42-52) L Mean Corpuscular Volume 87.6 fL (80-100) Mean Corpuscular Hemoglobin 27.4 pg (25-34) Mean Corpuscular Hemoglobin Concent 31.2 g/dl (32-36) L Platelet Count 369 K/uL (130-400) Mean Platelet Volume 8.8 fL (7.4-10.4) Neutrophils (%) (Auto) 89.7 % Lymphocytes (%) (Auto) 6.0 % Monocytes (%) (Auto) 3.0 % Eosinophils (%) (Auto) 0.1 % Basophils (%) (Auto) 0.1 % Neutrophils # (Auto) 23.52 K/uL (1.4-6.5) H Lymphocytes # (Auto) 1.58 K/uL (1.2-3.4) Monocytes # (Auto) 0.79 K/uL (0.11-0.59) H Eosinophils # (Auto) 0.03 K/uL (0-0.5) Basophils # (Auto) 0.02 K/uL (0-0.2) Total Creatine Kinase 95 U/L (39-308) Micro Results Date/Time Source Procedure Growth Status 03/19/17 04:45 Blood Blood Culture Pending Received 03/19/17 04:40 Blood Blood Culture Pending Received Risk Factors for Resistance * Hospitalization for 48 hours or more within the past 90 days * Antimicrobial use within the last 90 days Vancomycin dosed per [facility] pharmacy ( 01/02/17 - 01/17/17) Assessment & Plan Assessment 81 year old obese (BMI greater than 35kg/m2, BMI= 42kg/m2) male who was recently admitted to [facility] (mid December to beginning of January 2017) and again from - 03/17/17 with a history of COPD and CKD Stage III (baseline serum creat. ~ 1.7mg/dL). Plan Pharmacy has been consulted for treatment of pneumonia secondary to COPD exacerbation. Vancomycin IV * Loading dose: 2400 mg (19 mg/kg) * Maintenance dose: 1250 mg IV (10 mg/kg) every 24 hours * Maintenance dosing based on recent data from 01/02/17 - 01/17/17 Vancomycin consult where the patient exhibited similar p'kinetics. * Goal trough level for pneumonia : 15 to 20 mcg/mL * Trough level ordered for 03/22/17 ~30 minutes before the 0600 dose. * A less than traditional dose has been selected due to likelihood of drug accumulation in obese patient with h/o CKD. Pharmacy will continue to follow and will adjust dose/frequency as necessary. Thank you.
[2017-03-19 13:59] LABS: URINE APPEARANCE TURBID (CLEAR); URINE BILIRUBIN NEG (NEG); URINE COLOR DK YELLOW; URINE NITRITE NEG (NEG); URINE SPECIFIC GRAVITY 1.021 (1.000-1.030); UROBILINOGEN NEG (NEG); ZZUR CULT IF INDIC CLEAN CATCH YES
[2017-03-19 14:00] LABS: MANUAL MICROSCOPIC REQUIRED? NO; REVIEW REQ? NO
[2017-03-19] MEDS: ALBUT/IPRATROP 3MG/0.5MG NEB 3 ML VIAL INH SCH ×2 (15:24→20:00)
[2017-03-19] MEDS ORDERED: NURSING VERBAL MED ORDER ONE (16:00)
[2017-03-19] MEDS: SODIUM CHLORIDE 0.9% 1000ML 1,000 ML IV SCH (17:29)
[2017-03-20] VITALS (13 sets, daily range): BP systolic 101–122; BP diastolic 46–67; PULSE 61–76; TEMP 36.7–37.3; O2SAT 93–100
[2017-03-20] MEDS: SODIUM CHLORIDE 0.9% 1000ML 1,000 ML IV SCH (02:45)
[2017-03-20] MEDS: PIPERACILL/TAZOBAC IV 4.5 GM in DEXTROSE 5% 100ML IV SCH ×3 (04:37→19:47)
[2017-03-20] MEDS: LEVOTHYROXINE 100 MCG TAB PO SCH (05:56)
[2017-03-20] MEDS ORDERED: VANCOMYCIN INJ 1,250 MG in SODIUM CHLORIDE 0.9% 250ML 250 ML IV SCH (06:00)
[2017-03-20 06:45] LABS: HEMATOCRIT 22.7 % (42-52); MEAN CORPUSCULAR HEMOGLOBIN 29.2 pg (25-34); MEAN CORPUSCULAR HGB CONC 33.9 g/dl (32-36); PLATELET COUNT 267 K/uL (130-400); RED BLOOD COUNT 2.64 M/uL (4.7-6.1); WHITE BLOOD COUNT 27.37 K/uL (4.8-10.8)
[2017-03-20 07:04] LABS: BUN/CREATININE RATIO 20.3 (10-20); CREATININE 2.7 mg/dl (0.60-1.40); MAGNESIUM 1.8 mg/dl (1.8-2.4); POTASSIUM 5.1 mmol/L (3.5-5.1)
[2017-03-20 07:06] LABS: ALB/GLOB RATIO 0.8 (0.9-2)
[2017-03-20] MEDS: ALBUT/IPRATROP 3MG/0.5MG NEB 3 ML VIAL INH SCH ×4 (07:12→19:23)
[2017-03-20 07:28] LABS: BASO % 0.1 %; BASO ABS # 0.02 K/uL (0-0.2); COMPLETE YES; IG% 0.7 %; LYMPH % 4.9 %; LYMPH ABS # 1.33 K/uL (1.2-3.4); MONO % 5.1 %; NEUT % 89.2 %; POLYCHROMASIA 2+
[2017-03-20] MEDS: GUAIFENESIN 600 MG TABCR PO SCH ×2 (07:54→21:49)
[2017-03-20] MEDS: TAMSULOSIN HCL 0.4 MG CAP PO SCH (07:54)
[2017-03-20] MEDS: SIMVASTATIN 20 MG TAB PO SCH (07:54)
[2017-03-20] MEDS: MICONAZOLE NITRATE POWDER 43 GM EXT SCH (07:55)
[2017-03-20] MEDS: INSULIN ASPART 100 UNITS/ML 3 ML PEN SC SCH ×4 (08:00→21:52)
[2017-03-20] MEDS ORDERED: MAGNESIUM SULFATE 1GM / D5W 1 GM in PREMIXED IN D5W 100 ML IV ONE (09:15)
[2017-03-20] MEDS: AZITHROMYCIN IV 500 MG in DEXTROSE 5% 250ML 250 ML IV SCH (09:51)
--- NOTE | 2017-03-20 10:15 | Pharmacy Progress Note ---
Pharmacy Abx Dose Short Note Date of Service Mar 20, 2017. Assessment & Plan Assessment 81 year old male receiving vancomycin, Zosyn and Zithromax for treatment of pneumonia. Now with GPC in blood cultures and E. coli growing in urine. Day # 2 of antimicrobial therapy. SCr has increased from 2.1 -> 2.7 Plan Vancomycin * Place on hold at this time d/t CARLO * Random level with AM labs on 03/21 Zosyn * Continue same dose for elevated BMI and CrCl > 20 Zithromax not managed by pharmacy F/u with sensitivities once resulted and streamline antibiotics if appropriate Pharmacy will continue to follow and will adjust dose/frequency as necessary. Thank you.
[2017-03-20] MEDS ORDERED: NURSING VERBAL MED ORDER ONE (12:30)
--- NOTE | 2017-03-20 13:14 | Cardiology Consultation ---
Cardiology Consultation Date of Service Mar 20, 2017. Cardiology Consultation CARDIOLOGY CONSULTATION DATE OF CONSULTATION: March 20, 2017 REFERRING PHYSICIAN: Janneth Gold MD REASON FOR CONSULT: Elevated troponin HISTORY OF PRESENT ILLNESS: 89-year-old man with history of porcine aortic valve replacement with 2 vessel CABG [address], further details unknown), permanent atrial fibrillation (on warfarin/no negative chronotrope needed), stage 3 kidney disease, with other medical problems, who was admitted in December with Staph aureus bacteremia felt secondary to left foot osteomyelitis and who was admitted 03/19/2017 with dyspnea and found to have Staph bacteremia once again. He feels much better over the past 24 hours and no longer notes any dyspnea. He denies chest pain at any time. No subjective palpitations, presyncope, or syncope. He had fever and chills yesterday with a nonproductive cough, afebrile today. No complaints currently. CURRENT MEDICATIONS: Pursell in/tazobactam Sliding scale insulin Levothyroxine Simvastatin Tamsulosin Azithromycin Guaifenesin DuoNeb Vancomycin ALLERGIES: Chlorpheniramine Phenylpropanolamine PAST MEDICAL HISTORY: CAD/2 vessel CABG 2007 Porcine AVR 2007 Permanent atrial fibrillation Chronic anemia COPD Diastolic congestive heart failure Seborrheic dermatitis Diabetes mellitus Chronic elevated alkaline phosphatase and LFT levels Dyslipidemia Hypertension Hypothyroidism A1C the [place] Diabetic neuropathy Pulmonary hypertension Secondary hyperparathyroidism Sleep apnea Stage 3 chronic kidney disease PAST SURGICAL HISTORY: Porcine AVR/2 vessel CABG 2007 SOCIAL HISTORY: and accompanied by his . Retired. Never smoked. FAMILY HISTORY: Diabetes and hypertension. REVIEW OF SYSTEMS: As per HPI and admission H and P. he had fully recovered after his hospitalization in December with subsequent stay at [facility]. PHYSICAL EXAMINATION: No distress. Vitals: Initial temperature 39.2 degrees, afebrile today. BP 101/60, pulse 66 and irregular, respirations 16 and unlabored. Skin: Stasis changes without ulcerations of both lower extremities. HEENT: Unremarkable. Neck: Jugular venous pulse 1/[address] the angle of the jaw at 90, no carotid bruits. Lungs: Breath sounds mildly reduced but generally clear, a few faint crackles at the bases. No wheezing. Cardiac: Irregular rhythm with intact aortic closure sound, 2/6 apical holosystolic murmur radiating to the axilla, no aortic murmur appreciated. No diastolic murmur or gallop. Abdomen: Benign. Extremities: 2+ pretibial pitting edema, pulses not readily palpable but good capillary refill (1 second). Neurologic: Normal affect, nonfocal DATA: ECG 03/19/2017 showed atrial fibrillation with ventricular rate of 103 ppm, minor nonspecific ST depression of less than 1 millimeter noted anterolaterally. Compared with 01/02/2017 ECG, rate had increased but otherwise no significant change. Chest x-ray 03/19/2017 showed cardiomegaly and mild pulmonary vascular congestion with small right pleural effusion. Labs from today with white count 27.37, hemoglobin 7.7, platelet count normal. INR 1.4. Sodium 132, otherwise normal electrolytes, BUN 55, creatinine 2.7 (40 and 2.1 yesterday). Troponin 0.09 increasing to 1.5 today. Albumin 2.6. AST minimally elevated at 44, ALT normal at 46. Blood culture showed Staph aureus x2. Echocardiogram December 2016 showed normal left ventricular size and systolic function (EF 55-60 %) with hypokinetic inferior base and septal flattening suggesting right ventricular volume overload. Bioprosthetic aortic valve showed acceptable velocities, mild mitral stenosis/regurgitation noted with severe pulmonary hypertension suggested by Doppler. Vegetation could not be excluded. IMPRESSION: 1. Staph aureus bacteremia, recurrent. 2. Permanent atrial fibrillation, transient rapid ventricular response/now rate controlled. 3. Porcine aortic valve, rule out endocarditis. 4. Troponin elevation without chest pain or ECG changes, likely supply/demand mismatch. 5. Marked anemia. 6. Coronary artery disease, status post CABG 2007. 7. History of diastolic congestive heart failure, chronically on furosemide. 8. Multiple other comorbidities. DISCUSSION: Despite a multitude of underlying comorbidities including a variety of cardiac conditions, he looks remarkably good clinically and is asymptomatic presently. Elevated troponin: In the absence of chest pain or ECG changes, given the likely protection from his prior CABG and the increased risk of catheterization with his underlying renal insufficiency, would presume that troponin elevation is due to supply/demand mismatch (tachycardia, anemia, etc) and treat conservatively by optimizing hemodynamics. Check repeat ECG today. Bacteremia: Certainly, with recurrent staph aureus in patient with prosthetic heart valve would consider subacute bacterial endocarditis in the differential. Given the recurrent nature of his bacteremia, likely will need long-term antibiotics regardless of etiology. Reasonable to obtain transthoracic echocardiogram to screen for major vegetation, if unrevealing could then decide whether the sedation/procedural risk of transesophageal echocardiogram is warranted (depending on whether the duration of antibiotic administration would be affected). Certainly, neither study is urgent since he will be receiving a broad course of antibiotics for the near term regardless of any echocardiographic findings. Permanent atrial fibrillation: In the absence of contraindications (upcoming procedures), would restart warfarin to achieve INR of 2-3. He does not appear to require any negative chronotropic medication at baseline, his mild tachycardia on admission should be considered physiologic in the face of sepsis. Likely he has underlying conduction disease, no apparent need for ongoing rate control. History of diastolic congestive heart failure: Will need to monitor IV fluids and at some point likely discontinue these and perhaps even restart furosemide to avoid hypervolemia/congestion. No CHF symptoms currently.
--- NOTE | 2017-03-20 13:32 | Nephrology Consultation ---
Nephrology Consultation Date & Providers Date of Consultation: Mar 20, 2017. Primary Care Provider: Winston Harper M.D. Referring Provider: Reason for Consultation Evaluation and management for acute kidney injury. History of Present Illness Ernesto is a 81-year-old gentlemen with past medical history significant for hypertension, diabetes, history of coronary artery disease, CHF, anemia with concern for GI bleeding, admit to the hospital with pneumonia and bacteremia. Nephrologic consult was requested to manage acute kidney injury. Electronic medical records including labs and imaging were reviewed in detail during patient's visit. Ernesto was recently discharged from hospital on March 17 after he was admitted and evaluated for anemia. He had EGD which was normal, had colonoscopy showing polyps, diverticulosis and internal hemorrhoid without active bleeding, no polypectomy was done considering being on anticoagulation. Since yesterday he started having shortness of breath, cough and fever and presented to the ED and was admitted for further evaluation. Initially his blood pressure was relatively low however slightly improved and has been stable. At home he was on 80 milligram of Lasix once a day which was on hold since admission. He received IV fluid more than a liter which currently stopped. Chest x-ray was concerning for pulmonary condition and possible right lung infiltrate. Blood culture this morning came back positive for Staph aureus and urine culture grew E coli. Sensitivities still pending and currently he is being empirically treated with vancomycin, Zosyn and Zithromax. He has stage 3 chronic kidney disease, his baseline creatinine has been quite variable from 1.5-2, depending on his volume status with history of sinus CHF with right-sided heart failure and pulmonary hypertension. On admission yesterday creatinine was 2.1 which should worsen this morning to 2.7. Has mild metabolic acidosis and serum sodium low at 132. His troponin was mildly elevated. White cell count was significantly elevated as well. He had another episode of acute kidney injury in December when he had prolonged hospital course for osteomyelitis, creatinine peaked to 3.6 which eventually improved to 1.6. He just completed a prolonged course of antibiotic few days ago. Currently he is overall feeling better, shortness of breath resolved, no further episode of fever. Denies any chest pain. Appetite has been good. Allergies Coded Allergies: Chlorpheniramine (Unverified Allergy, Unknown, ., 03/19/17) Phenylpropanolamine (Unverified Allergy, Unknown, ., 03/19/17) Inpatient Medications Current Inpatient Medications Medications (Trade) Dose Ordered Sig/Sukhwinder Route Start Time Stop Time Status Last Admin Dose Admin Acetaminophen (Tylenol Tab) 650 mg Q4H PRN PO 03/19/17 06:30 04/18/17 06:29 Ondansetron HCl (Zofran Inj) 4 mg Q6H PRN IV 03/19/17 06:30 04/18/17 06:29 Nitroglycerin (Nitrostat Tab) 0.4 mg UD PRN SL 03/19/17 06:30 04/18/17 06:29 Morphine Sulfate (MoRPHine SULFATE INJ) 2 mg Q30M PRN IV 03/19/17 06:30 04/02/17 06:29 Polyethylene (Miralax Powder Packet) 17 gm DAILY PRN PO 03/19/17 06:30 04/18/17 06:29 Levothyroxine Sodium (Synthroid Tab) 100 mcg DAILYBB PO 03/19/17 09:00 04/18/17 08:59 03/20/17 05:56 100 MCG Miconazole Nitrate (Desenex Powder) 1 appln DAILY EXT 03/19/17 09:00 04/18/17 08:59 03/20/17 07:55 1 APPLN Simvastatin (Zocor Tab) 20 mg DAILY PO 03/19/17 09:00 04/18/17 08:59 03/20/17 07:54 20 MG Tamsulosin HCl (Flomax Cap) 0.4 mg DAILY PO 03/19/17 09:00 04/18/17 08:59 03/20/17 07:54 0.4 MG Miscellaneous Information (Order Awaiting Action) 1 ea QS N/A 03/19/17 16:00 04/18/17 15:59 Albuterol/ Ipratropium (Duoneb) 3 ml QIDR INH 03/19/17 08:00 04/18/17 07:59 03/20/17 11:16 3 ML Azithromycin 500 mg/Dextrose 255 ml @ 125 mls/hr DAILY IV 03/19/17 09:00 03/26/17 08:59 03/20/17 09:51 125 MLS/HR Guaifenesin (Mucinex Contr Rel Tab) 600 mg Q12 PO 03/19/17 09:00 04/18/17 08:59 03/20/17 07:54 600 MG Vancomycin HCl (Consult) 1 ea UD PRN N/A 03/19/17 07:00 04/18/17 06:59 Piperacillin Sod/ Tazobactam Sod (Consult) 1 ea UD PRN N/A 03/19/17 07:00 04/18/17 06:59 Insulin Aspart (novoLOG ASPART) SLIDING SCALE G... ACHS SC 03/19/17 11:00 04/18/17 10:59 03/20/17 12:14 7 UNITS Piperacillin Sod/ Tazobactam Sod 4.5 gm/Dextrose 120 ml @ 30 mls/hr Q8H IV 03/19/17 12:00 03/26/17 05:59 03/20/17 12:13 30 MLS/HR Vancomycin HCl 1250 mg/Sodium Chloride 275 ml @ 125 mls/hr Q24H IV 03/20/17 06:00 03/26/17 05:59 Future Hold 03/20/17 08:01 125 MLS/HR Family History FH: diabetes mellitus FH: hypertension Social History Smoking Status: Never Smoker Marital Status: Occupation: retired Review of Systems A complete review of systems was performed. Pertinent positives are noted above. All other systems are negative. Physical Exam Date Time Temp Pulse Resp B/P (MAP) Pulse Ox O2 Delivery O2 Flow Rate FiO2 03/20/17 12:03 36.7 66 16 101/60 (74) 96 03/20/17 12:00 96 Nasal Cannula 2.0 03/20/17 11:16 61 18 94 Room Air 03/20/17 08:00 96 Nasal Cannula 2.0 03/20/17 07:50 36.8 67 20 114/67 (83) 96 Room Air 03/20/17 07:12 62 20 93 Room Air 03/20/17 04:00 37.0 66 18 103/64 (77) 96 Nasal Cannula 2.0 03/20/17 04:00 Nasal Cannula 2.0 03/20/17 00:27 37.3 76 19 122/66 (84) 98 Nasal Cannula 2.0 03/19/17 23:59 Nasal Cannula 2.0 03/19/17 20:00 Nasal Cannula 2.0 03/19/17 20:00 62 20 95 Nasal Cannula 2.0 03/19/17 19:35 37.9 71 22 94/56 (69) 98 Nasal Cannula 2.0 03/19/17 16:00 96 Nasal Cannula 3.0 03/19/17 15:45 37.0 66 22 98/59 (72) 97 Nasal Cannula 3.0 03/19/17 15:24 79 97 Nasal Cannula 3.0 GENERAL: Elderly male, AAA x 3, pleasant, not in any distress. HEENT: Atraumatic, normocephalic. NECK: Supple, no JVD ENT: No sinus tenderness MOUTH and THROAT: Moist oral mucosa RESPIRATORY: Normal breathing efforts, clear to auscultation bilaterally, no wheezes or rales. CARDIOVASCULAR: S1, S2 normal, rate rhythm regular. ABDOMEN: Soft, nontender, positive bowel sound. MUSCULOSKELETAL: No CVA tenderness. No joint swelling, erythema or tenderness. SKIN: No skin rash EXTREMITY: 1+ B/L lower extremity edema NEURO: No gross focal neurological deficit, speech fluent. PSYCHIATRY: Normal mood and judgment Laboratory Results Last 24 Hours Test 03/19/17 16:12 03/19/17 20:07 03/19/17 20:29 03/20/17 06:28 Bedside Glucose 319 mg/dl 294 mg/dl Troponin I 1.470 ng/ml 1.500 ng/ml White Blood Count 27.37 K/uL Red Blood Count 2.64 M/uL Hemoglobin 7.7 g/dL Hematocrit 22.7 % Mean Corpuscular Volume 86.0 fL Mean Corpuscular Hemoglobin 29.2 pg Mean Corpuscular Hemoglobin Concent 33.9 g/dl Platelet Count 267 K/uL Mean Platelet Volume 9.0 fL Neutrophils (%) (Auto) 89.2 % Lymphocytes (%) (Auto) 4.9 % Monocytes (%) (Auto) 5.1 % Eosinophils (%) (Auto) 0.0 % Basophils (%) (Auto) 0.1 % Neutrophils # (Auto) 24.43 K/uL Lymphocytes # (Auto) 1.33 K/uL Monocytes # (Auto) 1.40 K/uL Eosinophils # (Auto) 0.01 K/uL Basophils # (Auto) 0.02 K/uL RDW Standard Deviation 49.8 fL RDW Coefficient of Variation 15.9 % Immature Granulocyte % (Auto) 0.7 % Immature Granulocyte # (Auto) 0.18 K/uL Nucleated RBC Absolute Count (auto) 0.08 K/uL Nucleated Red Blood Cells % 0.3 % Polychromasia 2+ Sodium Level 132 mmol/L Potassium Level 5.1 mmol/L Chloride Level 102 mmol/L Carbon Dioxide Level 20 mmol/L Anion Gap 10.0 mmol/L Blood Urea Nitrogen 55 mg/dl Creatinine 2.70 mg/dl Est Creatinine Clear Calc Drug Dose 28.4 ml/min Estimated GFR () 24.5 Estimated GFR (Non- 21.1 BUN/Creatinine Ratio 20.3 Random Glucose 186 mg/dl Calcium Level 8.0 mg/dl Magnesium Level 1.8 mg/dl Total Bilirubin 1.2 mg/dl Aspartate Amino Transf (AST/SGOT) 44 U/L Alanine Aminotransferase (ALT/SGPT) 46 U/L Alkaline Phosphatase 413 U/L Total Protein 6.0 gm/dl Albumin 2.6 gm/dl Globulin 3.4 gm/dl Albumin/Globulin Ratio 0.8 Test 03/20/17 07:03 03/20/17 11:24 Bedside Glucose 192 mg/dl 238 mg/dl Impression (1) Acute kidney injury (2) Hyponatremia (3) Hypotension (4) Pneumonia (5) Anemia (6) Chronic kidney disease (7) CHF (congestive heart failure) (8) Metabolic acidosis Ernesto is a 81-year-old gentlemen with past medical history significant for stage 3 chronic kidney disease ( B/L cr 1.5-2.0 ) , CHF with right-sided heart failure and pulmonary hypertension, COPD, a recent history of osteomyelitis some of lower extremity, admitted to the hospital with pneumonia. Developed acute kidney injury, creatinine sharply increased from 2.1 on admission to 2.7 this morning. Has been non-oliguric. blood culture was positive for Staph aureus and urine culture positive for E coli, currently on vancomycin, Zosyn and Zithromax. on admission patient was hypotensive, received IV fluid which currently stopped , blood pressure improved and has been stable. Overall feeling better, shortness of breath improved, fever resolved. Acute kidney injury is most likely hemodynamically mediated with related to hypotension with patient's history of CHF and pulmonary hypertension. Recommendations --Avoid any further IV fluid -- restrict free water to less than 1500 mL per day -- liberalize salt in diet --hemoglobin dropped, could be hemodilution as patient received IV fluid and diuretics has been on hold. recently had EGD colonoscopy. -- If blood transfusion is planned, please give 40 of IV Lasix x1 dose after blood transfusion --continue to monitor renal function and urine output, considering patient's multiple significant comorbidities he is at high risk for further worsening of renal function --currently volume status seems acceptable,continue to hold diuretics for now however, may need to resume diuretics soon, will monitor volume status closely. -- dose medications for GFR less than 30 Thank you for allowing me to participate in your patient's care. It was a pleasure to see Ernesto This chart was completed utilizing [employer] Speech and voice recognition software. Grammatical errors, random word insertions, pronoun errors and incomplete sentences are occasional consequences of this system. Any questions or concerns about the content, text or information contained within the body of this dictation should be addressed directly to the physician for clarification.
--- NOTE | 2017-03-20 20:37 | Medical Consult ---
Consultation Date of Consultation: Mar 20, 2017. Attending Physician: Terrance Barrios M.D. Reason for Consultation: Bacteremia, sepsis History of Present Illness 89-year-old male well known to the Infectious Disease service, with history of atrial fibrillation, recently admitted with MRSA bacteremia, treated with IV and oral antibiotics, thought to be due to foot/toe infection, now repeat presents with fever and change in mental status, with blood cultures again growing MRSA. Patient has been started empirically on IV antibiotics, IV change patient to IV daptomycin. Has had no worsening of toe / foot infection, no evidence of cellulitis, and patient now clinically responding to daptomycin with improvement in mental status. Denies any other localizing complaints. Past Medical/Surgical History Medical Problems: (1) Anemia Status: Chronic (2) Cellulitis of left lower extremity Status: Acute (3) Chronic kidney disease Status: Acute (4) Hypoxia Status: Acute (5) Lactic acid acidosis Status: Acute (6) Leukocytosis Status: Acute (7) Pneumonia Status: Acute (8) Sepsis Status: Acute (9) Sepsis Status: Acute Medical Problems: (1) A-fib (2) Acute kidney injury (3) Anemia (4) ASCVD (arteriosclerotic cardiovascular disease) (5) CHF (congestive heart failure) (6) COPD (chronic obstructive pulmonary disease) (7) Dermatitis, seborrheic (8) Diabetes (9) Elevated alkaline phosphatase level (10) Elevated LFTs (11) Hyperlipidemia (12) Hypertension (13) Hyponatremia (14) Hypotension (15) Hypothyroid (16) Ichthyosis (17) Metabolic acidosis (18) Osteomyelitis of left foot (19) Painful diabetic neuropathy (20) Pulmonary hypertension (21) Secondary hyperparathyroidism (22) Shortness of breath (23) SIRS (systemic inflammatory response syndrome) (24) Sleep apnea (25) Stage 3 chronic kidney disease Surgical Problems: (1) Hx of CABG Family History FH: diabetes mellitus FH: hypertension Social History Smoking Status: Never Smoker Marital Status: Housing Status: lives with significant other Occupation Status: retired Allergies Coded Allergies: Chlorpheniramine (Unverified Allergy, Unknown, ., 03/19/17) Phenylpropanolamine (Unverified Allergy, Unknown, ., 03/19/17) Current Inpatient Medications Current Inpatient Medications Medications (Trade) Dose Ordered Sig/Sukhwinder Route Start Time Stop Time Status Last Admin Dose Admin Acetaminophen (Tylenol Tab) 650 mg Q4H PRN PO 03/19/17 06:30 04/18/17 06:29 Ondansetron HCl (Zofran Inj) 4 mg Q6H PRN IV 03/19/17 06:30 04/18/17 06:29 Nitroglycerin (Nitrostat Tab) 0.4 mg UD PRN SL 03/19/17 06:30 04/18/17 06:29 Morphine Sulfate (MoRPHine SULFATE INJ) 2 mg Q30M PRN IV 03/19/17 06:30 04/02/17 06:29 Polyethylene (Miralax Powder Packet) 17 gm DAILY PRN PO 03/19/17 06:30 04/18/17 06:29 Levothyroxine Sodium (Synthroid Tab) 100 mcg DAILYBB PO 03/19/17 09:00 04/18/17 08:59 03/20/17 05:56 100 MCG Miconazole Nitrate (Desenex Powder) 1 appln DAILY EXT 03/19/17 09:00 04/18/17 08:59 03/20/17 07:55 1 APPLN Simvastatin (Zocor Tab) 20 mg DAILY PO 03/19/17 09:00 04/18/17 08:59 03/20/17 07:54 20 MG Tamsulosin HCl (Flomax Cap) 0.4 mg DAILY PO 03/19/17 09:00 04/18/17 08:59 03/20/17 07:54 0.4 MG Miscellaneous Information (Order Awaiting Action) 1 ea QS N/A 03/19/17 16:00 04/18/17 15:59 Albuterol/ Ipratropium (Duoneb) 3 ml QIDR INH 03/19/17 08:00 04/18/17 07:59 03/20/17 19:23 3 ML Azithromycin 500 mg/Dextrose 255 ml @ 125 mls/hr DAILY IV 03/19/17 09:00 03/26/17 08:59 03/20/17 09:51 125 MLS/HR Guaifenesin (Mucinex Contr Rel Tab) 600 mg Q12 PO 03/19/17 09:00 04/18/17 08:59 03/20/17 07:54 600 MG Vancomycin HCl (Consult) 1 ea UD PRN N/A 03/19/17 07:00 04/18/17 06:59 Piperacillin Sod/ Tazobactam Sod (Consult) 1 ea UD PRN N/A 03/19/17 07:00 04/18/17 06:59 Insulin Aspart (novoLOG ASPART) SLIDING SCALE G... ACHS DC 03/19/17 11:00 04/18/17 10:59 03/20/17 17:20 10 UNITS Piperacillin Sod/ Tazobactam Sod 4.5 gm/Dextrose 120 ml @ 30 mls/hr Q8H IV 03/19/17 12:00 03/26/17 05:59 03/20/17 19:47 30 MLS/HR Vancomycin HCl 1250 mg/Sodium Chloride 275 ml @ 125 mls/hr Q24H IV 03/20/17 06:00 03/26/17 05:59 Future Hold 03/20/17 08:01 125 MLS/HR Insulin Detemir (Levemir Flexpen/ FlexTouch) 10 units HS DC 03/20/17 21:00 04/19/17 20:59 Review of Systems Constitutional: + fever, + chills Eyes: No problem reported ENT: No problem reported Respiratory: + cough, + shortness of breath Cardiovascular: No problem reported Abdomen: No problem reported Musculoskeletal: No problem reported Genitourinary - Male: No problem reported Neurologic: No problem reported Psychiatric: No problem reported Endocrine: No problem reported Hematologic / Lymphatic: No problem reported Integumentary: No problem reported Allergic / Immunologic: No problem reported Physical Exam Date Time Temp Pulse Resp B/P (MAP) Pulse Ox O2 Delivery O2 Flow Rate FiO2 03/20/17 19:35 36.7 70 16 111/64 (80) 100 Mask 7.0 03/20/17 19:24 67 18 93 Room Air 03/20/17 16:00 97 Room Air 03/20/17 15:44 36.9 72 16 102/46 (64) 97 Room Air 03/20/17 15:16 66 18 95 Room Air 03/20/17 12:03 36.7 66 16 101/60 (74) 96 03/20/17 12:00 96 Nasal Cannula 2.0 03/20/17 11:16 61 18 94 Room Air 03/20/17 08:00 96 Nasal Cannula 2.0 03/20/17 07:50 36.8 67 20 114/67 (83) 96 Room Air 03/20/17 07:12 62 20 93 Room Air 03/20/17 04:00 37.0 66 18 103/64 (77) 96 Nasal Cannula 2.0 03/20/17 04:00 Nasal Cannula 2.0 03/20/17 00:27 37.3 76 19 122/66 (84) 98 Nasal Cannula 2.0 03/19/17 23:59 Nasal Cannula 2.0 General Appearance: WD/WN, no apparent distress Head: normocephalic, atraumatic Eyes: normal inspection, EOMI, sclerae normal ENT: normal ENT inspection, pharynx normal Neck: supple, no adenopathy, thyroid normal, trachea midline Respiratory/Chest: chest non-tender, lungs clear, normal breath sounds, no respiratory distress Cardiovascular: no gallop, + systolic murmur, + irregularly irregular Abdomen/GI: normal bowel sounds, non tender, soft, no organomegaly Back: normal inspection, no CVA tenderness Extremities/Musculoskelatal: no calf tenderness, normal capillary refill Neurologic/Psych: alert, oriented x 3 Skin: normal color, warm/dry, no rash, + pertinent finding (nychomycosis) Lymphatic: no adenopathy Laboratory Results RUN DATE: 03/20/17 [facility] LAB PAGE 1 RUN TIME: 1021 Specimen Inquiry PATIENT: SUE MANCINI III LOC: [facility] U # : [id number] AGE/SX: 81/M ROOM: S236 REG : 03/19/[address]: Terrance Barrios M.D : 1935 BED: 1 DIS : STATUS: ADM IN TLOC: SPEC #: [id number] CHANTAL: 03/19/17 STATUS: RES REQ #: [id number] RECD: 03/19/17-[address]: Bam Hopper DO SOURCE: BLOOD ENTR: 03/19/[address] [facility] [address]: Winston Harper M.D. SPDESC: ORDERED: BLOOD CULTURE Procedure Result Verified Site BLD CULT Preliminary 03/20/17-1020 Organism 1 STAPHYLOCOCCUS AUREUS SENS SENSITIVITY TO FOLLOW Phoned Positive Blood Culture Gram Stain Report to ANDREEA WONG on 03/19/17 At 1758 By RAJEEV. Results were verbalized back to RAJEEV. Last 24 Hours Test 03/20/17 06:28 03/20/17 07:03 03/20/17 11:24 03/20/17 14:41 White Blood Count 27.37 K/uL Red Blood Count 2.64 M/uL Hemoglobin 7.7 g/dL 7.9 g/dL Hematocrit 22.7 % 24.0 % Mean Corpuscular Volume 86.0 fL Mean Corpuscular Hemoglobin 29.2 pg Mean Corpuscular Hemoglobin Concent 33.9 g/dl Platelet Count 267 K/uL Mean Platelet Volume 9.0 fL Neutrophils (%) (Auto) 89.2 % Lymphocytes (%) (Auto) 4.9 % Monocytes (%) (Auto) 5.1 % Eosinophils (%) (Auto) 0.0 % Basophils (%) (Auto) 0.1 % Neutrophils # (Auto) 24.43 K/uL Lymphocytes # (Auto) 1.33 K/uL Monocytes # (Auto) 1.40 K/uL Eosinophils # (Auto) 0.01 K/uL Basophils # (Auto) 0.02 K/uL RDW Standard Deviation 49.8 fL RDW Coefficient of Variation 15.9 % Immature Granulocyte % (Auto) 0.7 % Immature Granulocyte # (Auto) 0.18 K/uL Nucleated RBC Absolute Count (auto) 0.08 K/uL Nucleated Red Blood Cells % 0.3 % Polychromasia 2+ Sodium Level 132 mmol/L Potassium Level 5.1 mmol/L Chloride Level 102 mmol/L Carbon Dioxide Level 20 mmol/L Anion Gap 10.0 mmol/L Blood Urea Nitrogen 55 mg/dl Creatinine 2.70 mg/dl Est Creatinine Clear Calc Drug Dose 28.4 ml/min Estimated GFR () 24.5 Estimated GFR (Non- 21.1 BUN/Creatinine Ratio 20.3 Random Glucose 186 mg/dl Calcium Level 8.0 mg/dl Magnesium Level 1.8 mg/dl Total Bilirubin 1.2 mg/dl Aspartate Amino Transf (AST/SGOT) 44 U/L Alanine Aminotransferase (ALT/SGPT) 46 U/L Alkaline Phosphatase 413 U/L Troponin I 1.500 ng/ml Total Protein 6.0 gm/dl Albumin 2.6 gm/dl Globulin 3.4 gm/dl Albumin/Globulin Ratio 0.8 Bedside Glucose 192 mg/dl 238 mg/dl Test 03/20/17 16:00 03/20/17 16:13 Urine Osmolality 422 mOms/kg Bedside Glucose 258 mg/dl [~ rep ct add3]] CHEST 2 VIEWS ROUTINE CLINICAL HISTORY: sob COMPARISON STUDY: 01/12/2017 FINDINGS: The heart is enlarged. Postsurgical changes are again evident involving the chest wall. There is a small right pleural effusion. The left-sided PICC catheter has been removed. There is mild pulmonary vascular congestion. There is no lobar consolidation.[ There is a 17 mm opacity visualized posterio-laterally only on the lateral projection. This may represent a summation. Short-term radiographic follow-up is recommended. IMPRESSION: 1. Cardiomegaly and mild pulmonary vascular congestion. Small right pleural effusion. 2. 17 mm opacity visualized posterio-laterally on the lateral view. This may represent a summation. Short-term radiographic follow-up is recommended. Electronically signed by: Chris Odonnell M.D. 03/19/2017 7:06 AM Dictated Date/Time: 03/19/2017 7:03 AM The status of Assessment & Plan 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 Have changed patient to IV daptomycin as no evidence of pulmonary infection. Patient should have DARBY if possible to assess for PVE. Will discuss with all involved. To follow.
[2017-03-20] MEDS ORDERED: INSULIN DETEMIR FLEXPEN/FLEX TOUCH 100 UNITS/ML 3ML SC SCH (21:00)
[2017-03-20] MEDS: DAPTOmycin IV 1,000 MG in SODIUM CHLORIDE 0.9% 50ML 50 ML IV SCH (21:49)
[2017-03-21] VITALS (22 sets, daily range): BP systolic 92–139; BP diastolic 43–76; PULSE 70–100; TEMP 36.3–36.9; O2SAT 92–99; BMI 41.5
[2017-03-21] MEDS: PIPERACILL/TAZOBAC IV 4.5 GM in DEXTROSE 5% 100ML IV SCH ×3 (03:36→20:00)
[2017-03-21] MEDS: LEVOTHYROXINE 100 MCG TAB PO SCH (03:36)
[2017-03-21 07:08] LABS: BASO % 0.1 %; BASO ABS # 0.01 K/uL (0-0.2); EOS % 0.3 %; IG% 0.4 %; LYMPH % 2.7 %; LYMPH ABS # 0.51 K/uL (1.2-3.4); MEAN CELL VOLUME 86.8 fL (80-100); MEAN CORPUSCULAR HEMOGLOBIN 28.7 pg (25-34); MEAN PLATELET VOLUME 9.4 fL (7.4-10.4); NEUT % 88.5 %; PLATELET COUNT 312 K/uL (130-400); RED BLOOD COUNT 2.65 M/uL (4.7-6.1); WHITE BLOOD COUNT 19.15 K/uL (4.8-10.8)
[2017-03-21 07:16] LABS: INR 2.3 (0.9-1.1); PROTHROMBIN TIME (PATIENT) 25.7 SECONDS (9.0-12.0)
--- NOTE | 2017-03-21 07:20 | Podiatry Consultation ---
Podiatry Consultation Date of Consultation: Mar 21, 2017. Attending Physician: Terrance Barrios M.D. Reason for Consultation: patient is diabetic with neuropathy and has painful elongated toenails that need care and debridement Past Medical/Surgical History Medical Problems: (1) Anemia Status: Chronic (2) Cellulitis of left lower extremity Status: Acute (3) Chronic kidney disease Status: Acute (4) Hypoxia Status: Acute (5) Lactic acid acidosis Status: Acute (6) Leukocytosis Status: Acute (7) Pneumonia Status: Acute (8) Sepsis Status: Acute (9) Sepsis Status: Acute Family History FH: diabetes mellitus FH: hypertension Social History Smoking Status: Never Smoker Marital Status: Housing Status: lives with significant other Occupation Status: retired Allergies Coded Allergies: Chlorpheniramine (Unverified Allergy, Unknown, ., 03/19/17) Phenylpropanolamine (Unverified Allergy, Unknown, ., 03/19/17) Home Medications Scheduled Ergocalciferol (Vitamin D 73917 Unit), 1 CAP PO WK Furosemide (Lasix), 40 MG PO BID Insulin Isophan/Regular (Humulin 70/30), 20 UNITS SC BID Levothyroxine Sodium (Levothyroxine Sodium), 100 MCG PO DAILY Miconazole Nitrate (Desenex Shake Powder), 1 APPLN EXT DAILY Simvastatin (Zocor), 20 MG PO DAILY Tamsulosin Hcl (Flomax), 0.4 MG PO DAILY Warfarin Sod (Coumadin), 1 TAB PO [id number]-- Warfarin Sod (Coumadin), 1 TAB PO -sun Scheduled PRN Albuterol Hfa (Ventolin Hfa), 1-2 PUFFS INH Q6H PRN for SOB/Wheezing Budesonide (Inhalation) (Pulmicort), 1 DOSE INH UD PRN for SOB/Wheezing Home O2 Therapy (Oxygen), 1.5 LITER NA HS PRN for Shortness of Breath Ipratropium-Albuterol (Duoneb), 1 TREATMENT INH Q4H PRN for Shortness of Breath Current Inpatient Medications Current Inpatient Medications Medications (Trade) Dose Ordered Sig/Sukhwinder Route Start Time Stop Time Status Last Admin Dose Admin Acetaminophen (Tylenol Tab) 650 mg Q4H PRN PO 03/19/17 06:30 04/18/17 06:29 Ondansetron HCl (Zofran Inj) 4 mg Q6H PRN IV 03/19/17 06:30 04/18/17 06:29 Nitroglycerin (Nitrostat Tab) 0.4 mg UD PRN SL 03/19/17 06:30 04/18/17 06:29 Morphine Sulfate (MoRPHine SULFATE INJ) 2 mg Q30M PRN IV 03/19/17 06:30 04/02/17 06:29 Polyethylene (Miralax Powder Packet) 17 gm DAILY PRN PO 03/19/17 06:30 04/18/17 06:29 Levothyroxine Sodium (Synthroid Tab) 100 mcg DAILYBB PO 03/19/17 09:00 04/18/17 08:59 03/21/17 03:36 100 MCG Miconazole Nitrate (Desenex Powder) 1 appln DAILY EXT 03/19/17 09:00 04/18/17 08:59 03/20/17 07:55 1 APPLN Simvastatin (Zocor Tab) 20 mg DAILY PO 03/19/17 09:00 04/18/17 08:59 03/20/17 07:54 20 MG Tamsulosin HCl (Flomax Cap) 0.4 mg DAILY PO 03/19/17 09:00 04/18/17 08:59 03/20/17 07:54 0.4 MG Miscellaneous Information (Order Awaiting Action) 1 ea QS N/A 03/19/17 16:00 04/18/17 15:59 Albuterol/ Ipratropium (Duoneb) 3 ml QIDR INH 03/19/17 08:00 04/18/17 07:59 03/20/17 19:23 3 ML Azithromycin 500 mg/Dextrose 255 ml @ 125 mls/hr DAILY IV 03/19/17 09:00 03/26/17 08:59 03/20/17 09:51 125 MLS/HR Guaifenesin (Mucinex Contr Rel Tab) 600 mg Q12 PO 03/19/17 09:00 04/18/17 08:59 03/20/17 21:49 600 MG Piperacillin Sod/ Tazobactam Sod (Consult) 1 ea UD PRN N/A 03/19/17 07:00 04/18/17 06:59 Insulin Aspart (novoLOG ASPART) SLIDING SCALE G... ACHS SC 03/19/17 11:00 04/18/17 10:59 03/20/17 21:52 6 UNITS Piperacillin Sod/ Tazobactam Sod 4.5 gm/Dextrose 120 ml @ 30 mls/hr Q8H IV 03/19/17 12:00 03/26/17 05:59 03/21/17 03:36 30 MLS/HR Insulin Detemir (Levemir Flexpen/ FlexTouch) 10 units HS SC 03/20/17 21:00 04/19/17 20:59 03/20/17 21:52 10 UNITS Daptomycin 1000 mg/Sodium Chloride 70 ml @ 100 mls/hr Q48H IV 03/20/17 20:30 04/03/17 20:29 03/20/17 21:49 100 MLS/HR Physical Exam Date Time Temp Pulse Resp B/P (MAP) Pulse Ox O2 Delivery O2 Flow Rate FiO2 03/21/17 04:04 36.4 80 22 105/62 (76) 92 Room Air 03/21/17 04:00 97 BiPAP 03/21/17 00:01 97 BiPAP 03/21/17 00:00 36.8 78 20 99/52 (68) 97 CPAP 03/20/17 22:00 Nasal Cannula 3.0 03/20/17 19:35 36.7 70 16 111/64 (80) 100 Mask 7.0 03/20/17 19:24 67 18 93 Room Air 03/20/17 16:00 97 Room Air 03/20/17 15:44 36.9 72 16 102/46 (64) 97 Room Air 03/20/17 15:16 66 18 95 Room Air 03/20/17 12:03 36.7 66 16 101/60 (74) 96 03/20/17 12:00 96 Nasal Cannula 2.0 03/20/17 11:16 61 18 94 Room Air 03/20/17 08:00 96 Nasal Cannula 2.0 03/20/17 07:50 36.8 67 20 114/67 (83) 96 Room Air Skin: + pertinent finding (elongated painful toenails of bilater feet digits 1- 5, with pedal pulses palpable, small abrasion present on the left 3rd digit that is healing, no other open areas of concern) Laboratory Results Last 24 Hours Test 03/20/17 11:24 03/20/17 14:41 03/20/17 16:00 03/20/17 16:13 Bedside Glucose 238 mg/dl 258 mg/dl Hemoglobin 7.9 g/dL Hematocrit 24.0 % Urine Osmolality 422 mOms/kg Test 03/20/17 21:06 03/20/17 21:44 03/20/17 22:15 03/21/17 06:25 Bedside Glucose 351 mg/dl 320 mg/dl Stool Occult Blood NEGATIVE White Blood Count 19.15 K/uL Red Blood Count 2.65 M/uL Hemoglobin 7.6 g/dL Hematocrit 23.0 % Mean Corpuscular Volume 86.8 fL Mean Corpuscular Hemoglobin 28.7 pg Mean Corpuscular Hemoglobin Concent 33.0 g/dl Platelet Count 312 K/uL Mean Platelet Volume 9.4 fL Neutrophils (%) (Auto) 88.5 % Lymphocytes (%) (Auto) 2.7 % Monocytes (%) (Auto) 8.0 % Eosinophils (%) (Auto) 0.3 % Basophils (%) (Auto) 0.1 % Neutrophils # (Auto) 16.97 K/uL Lymphocytes # (Auto) 0.51 K/uL Monocytes # (Auto) 1.53 K/uL Eosinophils # (Auto) 0.05 K/uL Basophils # (Auto) 0.01 K/uL RDW Standard Deviation 51.5 fL RDW Coefficient of Variation 16.2 % Immature Granulocyte % (Auto) 0.4 % Immature Granulocyte # (Auto) 0.08 K/uL Nucleated RBC Absolute Count (auto) 0.03 K/uL Nucleated Red Blood Cells % 0.1 % Prothrombin Time 25.7 SECONDS Prothromb Time International Ratio 2.3 Test 03/21/17 06:50 Bedside Glucose 325 mg/dl Assessment & Plan 1. diabetic patient with known neuropathy, elongated and painful toenails bilateral feet 1-5 - recommend debridement of toenails, performed at bedside with no complications - no remaining open areas of concern present on the feet -patient to continue regular podiatry visits as scheduled as an outpatient
[2017-03-21] MEDS: ALBUT/IPRATROP 3MG/0.5MG NEB 3 ML VIAL INH SCH ×4 (07:22→20:04)
--- NOTE | 2017-03-21 07:45 | Hospitalist Progress Note ---
Hospitalist Progress Note Date of Service Mar 20, 2017. Subjective Pt evaluation today including: conversation w/ patient feeling better than admission, mild cough, no SOB, no CP. All Other Systems: Reviewed and Negative Objective Vital Signs Date Time Temp Pulse Resp B/P (MAP) Pulse Ox O2 Delivery O2 Flow Rate FiO2 03/21/17 04:04 36.4 80 22 105/62 (76) 92 Room Air 03/21/17 04:00 97 BiPAP 03/21/17 00:01 97 BiPAP 03/21/17 00:00 36.8 78 20 99/52 (68) 97 CPAP 03/20/17 22:00 Nasal Cannula 3.0 03/20/17 19:35 36.7 70 16 111/64 (80) 100 Mask 7.0 03/20/17 19:24 67 18 93 Room Air 03/20/17 16:00 97 Room Air 03/20/17 15:44 36.9 72 16 102/46 (64) 97 Room Air 03/20/17 15:16 66 18 95 Room Air 03/20/17 12:03 36.7 66 16 101/60 (74) 96 03/20/17 12:00 96 Nasal Cannula 2.0 03/20/17 11:16 61 18 94 Room Air 03/20/17 08:00 96 Nasal Cannula 2.0 03/20/17 07:50 36.8 67 20 114/67 (83) 96 Room Air Physical Exam General Appearance: no apparent distress, + obese Eyes: normal inspection, sclerae normal ENT: hearing grossly normal, pharynx normal Neck: trachea midline Respiratory/Chest: no respiratory distress, no accessory muscle use, + crackles (at bases) Cardiovascular: + irregularly irregular (with normal rate) Abdomen: normal bowel sounds (obese), non tender, soft Extremities: no calf tenderness, + swelling (1+ pitting edema legs to knees bilat), + pertinent finding (toenails with thickened yellow nails overgrown, left middle toe with old healed scar from previous OM) Neurologic/Psychiatric: alert, normal mood/affect, oriented x 3 Skin: normal color, warm/dry, no rash Laboratory Results Last 24 Hours Test 03/20/17 11:24 03/20/17 14:41 03/20/17 16:00 03/20/17 16:13 Bedside Glucose 238 mg/dl 258 mg/dl Hemoglobin 7.9 g/dL Hematocrit 24.0 % Urine Osmolality 422 mOms/kg Test 03/20/17 21:06 03/20/17 21:44 03/20/17 22:15 03/21/17 06:25 Bedside Glucose 351 mg/dl 320 mg/dl Stool Occult Blood NEGATIVE White Blood Count 19.15 K/uL Red Blood Count 2.65 M/uL Hemoglobin 7.6 g/dL Hematocrit 23.0 % Mean Corpuscular Volume 86.8 fL Mean Corpuscular Hemoglobin 28.7 pg Mean Corpuscular Hemoglobin Concent 33.0 g/dl Platelet Count 312 K/uL Mean Platelet Volume 9.4 fL Neutrophils (%) (Auto) 88.5 % Lymphocytes (%) (Auto) 2.7 % Monocytes (%) (Auto) 8.0 % Eosinophils (%) (Auto) 0.3 % Basophils (%) (Auto) 0.1 % Neutrophils # (Auto) 16.97 K/uL Lymphocytes # (Auto) 0.51 K/uL Monocytes # (Auto) 1.53 K/uL Eosinophils # (Auto) 0.05 K/uL Basophils # (Auto) 0.01 K/uL RDW Standard Deviation 51.5 fL RDW Coefficient of Variation 16.2 % Immature Granulocyte % (Auto) 0.4 % Immature Granulocyte # (Auto) 0.08 K/uL Nucleated RBC Absolute Count (auto) 0.03 K/uL Nucleated Red Blood Cells % 0.1 % Prothrombin Time 25.7 SECONDS Prothromb Time International Ratio 2.3 Osmolality 301 mOsm/kg Test 03/21/17 06:50 Bedside Glucose 325 mg/dl Assessment and Plan 81-year-old male with past medical history of atrial fibrillation, coronary artery disease status post CABG, chronic dCHF, hypertension, COPD, hypothyroidism, DMII, elevated LFTs, sleep apnea, pulmonary hypertension, secondary hyperparathyroidism, stage III kidney disease, and recent admission for anemia requiring transfusion, presented to the ER with complaints of acute onset shortness of breath, cough, and fever. Evidence of PNA with right pleural effusion, sepsis and now bacteremia in all sets of BCxs as well as UTI. Was hypotensive on arrival which responded to IVFs. Acute hypoxemic respiratory failure/HCAP/Sepsis/UTI/Bacteremia with Staph/COPD- improving with abx and IVFs. Staph bacteremia may be MRSA given recent treatment for MRSA foot infection/OM Urine growing E. coli - CXR: 1. Cardiomegaly and mild pulmonary vascular congestion. Small right pleural effusion. 2. 17 mm opacity visualized posterio-laterally on the lateral view. This may represent a summation. Short-term radiographic follow-up is recommended. - Continue IV vancomycin, Zosyn, azithromycin and narrow down as per ID and based on cultures -ID consultation requested - oxygen per protocol-weaned off - duonebs - guaifenesin Anemia: hgb at 8.4 on admission with slight drop after IVF resuscitation, had colonoscopy and EGD last week which found no source of bleeding. He was back on his coumadin since then Hgb at dc 8.4 on 03/17/17 - Received 2 units of PRBC transfusion during last admission - colonoscopy on 03/15, multiple polyps, 6-8mm in size, no masses, no active bleeding - EGD normal - capsule endoscopy was not done during last admission and plan was to transfuse as an OP if hgb dropped - Coumadin Currently held, restart if hemoccult neg -follow CBC, hemoccult stool Atrial fibrillation, CAD s/p CABG, porcine AVR, chronic dCHF, Pulm HTN, Elevated troponin-peak trop 1.5, likely demand ischemia in setting of sepsis. Appreciate Cardiology consultation - Rate controlled without AV keren blocking agent - Coumadin currently held -continue tele EVENS-use CPAP CARLO in setting of CKD stage III-IV: - Cr at 2.7, baseline 1.7, likely secondary to ATN from hypotension and sepsis - held lasix on admission -appreciate Nephrology consult in case of need for [employer] DM T2:with hyperglycemia ISS and add Levemir -check A1C elevated alk phos: chronic hypothyroidism: - continue synthroid Full code Proph-holding chemical AC until hemoccult stool SCDs Dispo: Admitted to tele
[2017-03-21 07:46] LABS: ANISOCYTOSIS PRESENT; COMPLETE YES; DOHLE BODIES 1+; HYPOCHROMIA PRESENT; TARGET CELLS 1+; TOXIC GRANULATION 1+; VACUOLIZATION 1+
[2017-03-21 07:52] LABS: ALB/GLOB RATIO 0.7 (0.9-2); BUN/CREATININE RATIO 20.8 (10-20); CALCIUM 8.3 mg/dl (8.5-10.1); CREATININE 2.6 mg/dl (0.60-1.40)
[2017-03-21] MEDS: TAMSULOSIN HCL 0.4 MG CAP PO SCH (08:37)
[2017-03-21] MEDS: GUAIFENESIN 600 MG TABCR PO SCH ×2 (08:37→21:44)
[2017-03-21] MEDS: MICONAZOLE NITRATE POWDER 43 GM EXT SCH (08:37)
[2017-03-21] MEDS: SIMVASTATIN 20 MG TAB PO SCH (08:37)
[2017-03-21] MEDS: AZITHROMYCIN IV 500 MG in DEXTROSE 5% 250ML 250 ML IV SCH (08:38)
[2017-03-21] MEDS: INSULIN ASPART 100 UNITS/ML 3 ML PEN SC SCH ×4 (08:40→21:00)
[2017-03-21] MEDS ORDERED: INSULIN DETEMIR FLEXPEN/FLEX TOUCH 100 UNITS/ML 3ML SC SCH (09:00)
--- NOTE | 2017-03-21 10:03 | Nephrology Progress Note ---
Nephrology Progress Note Date of Service Mar 21, 2017. Chief Complaint CARLO/CKD, anemia Subjective No acute events overnight. Mr. Avery denies chest pain or palpitations. He denies fevers or chills. Remains weak. Appetite fair. He does not have significant urinary symptoms. He has required straight catheterization for urinary retention. Bowels remain loose. He denies any other abdominal symptoms. Review of Systems A complete review of systems was performed. Pertinent positives are noted above. All other systems are negative. Vital Signs Last 8 Hrs Date Time Temp Pulse Resp B/P (MAP) Pulse Ox O2 Delivery O2 Flow Rate FiO2 03/21/17 08:05 36.7 100 20 133/68 (89) 92 Room Air Free Flow/Blowby 03/21/17 07:22 75 18 93 Room Air 03/21/17 04:04 36.4 80 22 105/62 (76) 92 Room Air 03/21/17 04:00 97 BiPAP Last Recorded Weight Weight (Kilograms): 127.600 Physical Exam General Appearance: no apparent distress, + obese Head: normocephalic, atraumatic Eyes: normal inspection, sclerae normal ENT: normal ENT inspection, + pertinent finding (oral mucosa dry without lesion ) Neck: supple, + JVD (JVP 10 cm) Respiratory/Chest: lungs clear, no respiratory distress, no accessory muscle use, + decreased breath sounds Cardiovascular: + systolic murmur, + irregularly irregular Abdomen/GI: non tender, soft Extremities/Musculoskelatal: + pedal edema Neurologic/Psych: alert, oriented x 3 Family History FH: diabetes mellitus FH: hypertension Social History Marital Status: Occupation: retired Laboratory Results Past 24 Hours 03/20/17 14:41 03/21/17 06:25 Red Blood Count 2.65, Mean Corpuscular Volume 86.8, Mean Corpuscular Hemoglobin 28.7, Mean Corpuscular Hemoglobin Concent 33.0, Mean Platelet Volume 9.4, Neutrophils (%) (Auto) 88.5, Lymphocytes (%) (Auto) 2.7, Monocytes (%) (Auto) 8.0, Eosinophils (%) (Auto) 0.3, Basophils (%) (Auto) 0.1, Neutrophils # (Auto) 16.97, Lymphocytes # (Auto) 0.51, Monocytes # (Auto) 1.53, Eosinophils # (Auto) 0.05, Basophils # (Auto) 0.01 03/21/17 06:25 Test 03/20/17 11:24 03/20/17 16:00 03/20/17 16:13 03/20/17 21:06 Bedside Glucose 238 mg/dl (70-99) 258 mg/dl (70-99) 351 mg/dl (70-99) Urine Osmolality 422 mOms/kg (500-800) Test 03/20/17 21:44 03/20/17 22:15 03/21/17 05:25 03/21/17 06:25 Bedside Glucose 320 mg/dl (70-99) Stool Occult Blood NEGATIVE (NEGATIVE) Troponin I 0.660 ng/ml (0-0.045) White Blood Count 19.15 K/uL (4.8-10.8) Red Blood Count 2.65 M/uL (4.7-6.1) Hemoglobin 7.6 g/dL (14.0-18.0) Hematocrit 23.0 % (42-52) Mean Corpuscular Volume 86.8 fL (80-100) Mean Corpuscular Hemoglobin 28.7 pg (25-34) Mean Corpuscular Hemoglobin Concent 33.0 g/dl (32-36) Platelet Count 312 K/uL (130-400) Mean Platelet Volume 9.4 fL (7.4-10.4) Neutrophils (%) (Auto) 88.5 % Lymphocytes (%) (Auto) 2.7 % Monocytes (%) (Auto) 8.0 % Eosinophils (%) (Auto) 0.3 % Basophils (%) (Auto) 0.1 % Neutrophils # (Auto) 16.97 K/uL (1.4-6.5) Lymphocytes # (Auto) 0.51 K/uL (1.2-3.4) Monocytes # (Auto) 1.53 K/uL (0.11-0.59) Eosinophils # (Auto) 0.05 K/uL (0-0.5) Basophils # (Auto) 0.01 K/uL (0-0.2) RDW Standard Deviation 51.5 fL (36.4-46.3) RDW Coefficient of Variation 16.2 % (11.5-14.5) Immature Granulocyte % (Auto) 0.4 % Immature Granulocyte # (Auto) 0.08 K/uL (0.00-0.02) Nucleated RBC Absolute Count (auto) 0.03 K/uL (0-0) Nucleated Red Blood Cells % 0.1 % Toxic Granulation 1+ Toxic Vacuolation 1+ Dohle Bodies 1+ Hypochromasia PRESENT Anisocytosis PRESENT Target Cells 1+ Prothrombin Time 25.7 SECONDS (9.0-12.0) Prothromb Time International Ratio 2.3 (0.9-1.1) Anion Gap 12.0 mmol/L (3-11) Est Creatinine Clear Calc Drug Dose 29.5 ml/min Estimated GFR () 25.7 Estimated GFR (Non- 22.1 BUN/Creatinine Ratio 20.8 (10-20) Osmolality 301 mOsm/kg (280-300) Calcium Level 8.3 mg/dl (8.5-10.1) Total Bilirubin 1.3 mg/dl (0.2-1) Aspartate Amino Transf (AST/SGOT) 47 U/L (15-37) Alanine Aminotransferase (ALT/SGPT) 52 U/L (12-78) Alkaline Phosphatase 439 U/L (45-117) Total Protein 6.4 gm/dl (6.4-8.2) Albumin 2.7 gm/dl (3.4-5.0) Globulin 3.7 gm/dl (2.5-4.0) Albumin/Globulin Ratio 0.7 (0.9-2) Random Vancomycin Level 17.7 mcg/ml Test 03/21/17 06:50 Bedside Glucose 325 mg/dl (70-99) Allergies Coded Allergies: Chlorpheniramine (Unverified Allergy, Unknown, ., 03/19/17) Phenylpropanolamine (Unverified Allergy, Unknown, ., 03/19/17) Medications Current Inpatient Medications Medications (Trade) Dose Ordered Sig/Sukhwinder Route Start Time Stop Time Status Last Admin Dose Admin Acetaminophen (Tylenol Tab) 650 mg Q4H PRN PO 03/19/17 06:30 04/18/17 06:29 Ondansetron HCl (Zofran Inj) 4 mg Q6H PRN IV 03/19/17 06:30 04/18/17 06:29 Nitroglycerin (Nitrostat Tab) 0.4 mg UD PRN SL 03/19/17 06:30 04/18/17 06:29 Morphine Sulfate (MoRPHine SULFATE INJ) 2 mg Q30M PRN IV 03/19/17 06:30 04/02/17 06:29 Polyethylene (Miralax Powder Packet) 17 gm DAILY PRN PO 03/19/17 06:30 04/18/17 06:29 Levothyroxine Sodium (Synthroid Tab) 100 mcg DAILYBB PO 03/19/17 09:00 04/18/17 08:59 03/21/17 03:36 100 MCG Miconazole Nitrate (Desenex Powder) 1 appln DAILY EXT 03/19/17 09:00 04/18/17 08:59 03/21/17 08:37 1 APPLN Simvastatin (Zocor Tab) 20 mg DAILY PO 03/19/17 09:00 04/18/17 08:59 03/21/17 08:37 20 MG Tamsulosin HCl (Flomax Cap) 0.4 mg DAILY PO 03/19/17 09:00 04/18/17 08:59 03/21/17 08:37 0.4 MG Miscellaneous Information (Order Awaiting Action) 1 ea QS N/A 03/19/17 16:00 04/18/17 15:59 Albuterol/ Ipratropium (Duoneb) 3 ml QIDR INH 03/19/17 08:00 04/18/17 07:59 03/21/17 07:22 3 ML Azithromycin 500 mg/Dextrose 255 ml @ 125 mls/hr DAILY IV 03/19/17 09:00 03/26/17 08:59 03/21/17 08:38 125 MLS/HR Guaifenesin (Mucinex Contr Rel Tab) 600 mg Q12 PO 03/19/17 09:00 04/18/17 08:59 03/21/17 08:37 600 MG Piperacillin Sod/ Tazobactam Sod (Consult) 1 ea UD PRN N/A 03/19/17 07:00 04/18/17 06:59 Insulin Aspart (novoLOG ASPART) SLIDING SCALE G... ACHS SC 03/19/17 11:00 04/18/17 10:59 03/21/17 08:40 13 UNITS Piperacillin Sod/ Tazobactam Sod 4.5 gm/Dextrose 120 ml @ 30 mls/hr Q8H IV 03/19/17 12:00 03/26/17 05:59 03/21/17 03:36 30 MLS/HR Insulin Detemir (Levemir Flexpen/ FlexTouch) 10 units HS SC 03/20/17 21:00 04/19/17 20:59 03/20/17 21:52 10 UNITS Daptomycin 1000 mg/Sodium Chloride 70 ml @ 100 mls/hr Q48H IV 03/20/17 20:30 04/03/17 20:29 03/20/17 21:49 100 MLS/HR Insulin Detemir (Levemir Flexpen/ FlexTouch) 10 units QAM SC 03/21/17 09:00 04/20/17 08:59 03/21/17 08:41 10 UNITS Impression (1) Acute kidney injury (2) Hyponatremia (3) Hypotension (4) Pneumonia (5) Anemia (6) Chronic kidney disease (7) CHF (congestive heart failure) (8) Metabolic acidosis Mr. Avery is an 81-year-old male with chronic kidney disease III (baseline creatinine ~1.8 ) , CHF with right-sided heart failure and pulmonary hypertension, COPD, osteomyelitis and recurrent hospitalizations. He has E coli UTI and recurrent MRSA bacteremia complicated by acute kidney injury. Medical history also notable for significant persistent anemia. Anemia is likely multifactorial in nature. Recommendations CARLO: -- Maintain even to slightly negative fluid balance -- Medications appropriately dosed for renal function -- Document I/O's and repeat metabolic profile tomorrow AM -- Continue to monitor PVR Anemia: -- 2 u PRBC today -- 40 mg IV lasix with transfusion -- Check LDH -- Repeat H/H tomorrow AM MRSA bacteremia/osteomyelitis: -- TTE pending -- ID/cardiology consults -- Patient will likely require PICC line placement once blood cultures are negative Hyponatremia: -- Maintain free water restriction and monitor
[2017-03-21] MEDS ORDERED: FUROSEMIDE INJ 40 MG in SYRINGE 0 ML IV SCH (10:30)
[2017-03-21] MEDS ORDERED: NURSING VERBAL MED ORDER ONE ×3 (10:45→17:30)
[2017-03-21] MEDS ORDERED: INSULIN DETEMIR FLEXPEN/FLEX TOUCH 100 UNITS/ML 3ML SC ONE (12:15)
[2017-03-21] MEDS ORDERED: INSULIN ASPART 100 UNITS/ML 3 ML PEN SC ONE (12:30)
--- NOTE | 2017-03-21 12:41 | Cardiology Follow-Up ---
Subjective Date of Service: Mar 21, 2017. Pt evaluation today including: conversation w/ patient, physical exam, chart review, lab review, review of studies, review of inpatient medication list History of Present Illness This is an 89-year-old gentleman who is new to this area but has an extensive cardiac history including a bioprosthetic aortic valve replacement with 2 vessel coronary bypass surgery in 2007 in [facility]. He also has permanent atrial fibrillation and is on warfarin. He has kidney disease. He has had several admissions for staph aureus bacteremia, including this admission. This admission he was observed to have a slightly elevated troponin, in association with some transient rapid heart rate and anemia. He was not having chest discomfort and this was felt likely demand ischemia not infarction. Today he feels better, he is having no chest discomfort, no palpitations and feels stronger. He has no complaints lying in bed. Social History Smoking Status: Never Smoker History of Alcohol Use: No Review of Systems Respiratory: + dyspnea on exertion Cardiac: No chest pain Medications Cardiovascular: Item Value Date Time Furosemide 40 mg/ 4 ml @ 4 mls/min 03/21/17 1030 Syringe TODAY@1030/IV Simvastatin 20 mg 03/19/17 0900 (Zocor Tab) DAILY/PO 03/21/17 0837 Objective Vital Signs Past 12 Hours Date Time Temp Pulse Resp B/P (MAP) Pulse Ox O2 Delivery O2 Flow Rate FiO2 03/21/17 11:34 36.7 75 18 92/43 95 03/21/17 11:06 77 18 97 Room Air 03/21/17 08:05 36.7 100 20 133/68 (89) 92 Room Air Free Flow/Blowby 03/21/17 08:00 Room Air 03/21/17 07:22 75 18 93 Room Air 03/21/17 04:04 36.4 80 22 105/62 (76) 92 Room Air 03/21/17 04:00 97 BiPAP Last Recorded Weight-Kilograms: 127.600 Physical Exam Constitutional: General Apperance: overweight Level of Distress: NAD Lungs: Auscultation: breath sounds normal Cardiovascular: Heart Auscultation: RRR, II/ WSM Extremities: no edema Data Laboratory Results: Last 24 Hours Test 03/20/17 14:41 03/20/17 16:00 03/20/17 16:13 03/20/17 21:06 Hemoglobin 7.9 g/dL Hematocrit 24.0 % Urine Osmolality 422 mOms/kg Bedside Glucose 258 mg/dl 351 mg/dl Test 03/20/17 21:44 03/20/17 22:15 03/21/17 06:25 03/21/17 06:50 Bedside Glucose 320 mg/dl 325 mg/dl Stool Occult Blood NEGATIVE White Blood Count 19.15 K/uL Red Blood Count 2.65 M/uL Hemoglobin 7.6 g/dL Hematocrit 23.0 % Mean Corpuscular Volume 86.8 fL Mean Corpuscular Hemoglobin 28.7 pg Mean Corpuscular Hemoglobin Concent 33.0 g/dl Platelet Count 312 K/uL Mean Platelet Volume 9.4 fL Neutrophils (%) (Auto) 88.5 % Lymphocytes (%) (Auto) 2.7 % Monocytes (%) (Auto) 8.0 % Eosinophils (%) (Auto) 0.3 % Basophils (%) (Auto) 0.1 % Neutrophils # (Auto) 16.97 K/uL Lymphocytes # (Auto) 0.51 K/uL Monocytes # (Auto) 1.53 K/uL Eosinophils # (Auto) 0.05 K/uL Basophils # (Auto) 0.01 K/uL RDW Standard Deviation 51.5 fL RDW Coefficient of Variation 16.2 % Immature Granulocyte % (Auto) 0.4 % Immature Granulocyte # (Auto) 0.08 K/uL Nucleated RBC Absolute Count (auto) 0.03 K/uL Nucleated Red Blood Cells % 0.1 % Toxic Granulation 1+ Toxic Vacuolation 1+ Dohle Bodies 1+ Hypochromasia PRESENT Anisocytosis PRESENT Target Cells 1+ Prothrombin Time 25.7 SECONDS Prothromb Time International Ratio 2.3 Sodium Level 131 mmol/L Potassium Level 4.0 mmol/L Chloride Level 99 mmol/L Carbon Dioxide Level 20 mmol/L Anion Gap 12.0 mmol/L Blood Urea Nitrogen 54 mg/dl Creatinine 2.60 mg/dl Est Creatinine Clear Calc Drug Dose 29.5 ml/min Estimated GFR () 25.7 Estimated GFR (Non- 22.1 BUN/Creatinine Ratio 20.8 Random Glucose 294 mg/dl Osmolality 301 mOsm/kg Calcium Level 8.3 mg/dl Total Bilirubin 1.3 mg/dl Aspartate Amino Transf (AST/SGOT) 47 U/L Alanine Aminotransferase (ALT/SGPT) 52 U/L Alkaline Phosphatase 439 U/L Lactate Dehydrogenase 361 U/L Troponin I 0.660 ng/ml Total Protein 6.4 gm/dl Albumin 2.7 gm/dl Globulin 3.7 gm/dl Albumin/Globulin Ratio 0.7 Random Vancomycin Level 17.7 mcg/ml Test 03/21/17 11:39 Bedside Glucose 361 mg/dl Imaging: Echo pending Telemetry reviewed: Atrial fibrillation at a reasonably well-controlled heart rate, occasional runs of nonsustained ventricular tachycardia up to 6 beats in duration. Assessment and Plan #1. Valve replacement:: He has a bioprosthetic valve in place, an echocardiogram is pending. There is a possibility this could be infected, depending on results of echocardiogram he may need a transesophageal echocardiogram. I have not scheduled that as yet. #2. Abnormal cardiac enzymes: He has known coronary disease and presented with tachycardia, anemia and sepsis and his enzymes peaked at less than 2 and have dropped. He also has renal insufficiency. I suspect this is due to demand ischemia and would not pursue further evaluation this time. #3. Permanent atrial fibrillation: He should remain on warfarin for his atrial arrhythmia, rate control appears to be adequate currently although he was fast on admission. He appears not to have been on any AV keren blocking medications at home, we may want to consider beta-blockade here. #4. Nonsustained ventricular tachycardia: He has had brief episodes of nonsustained ventricular tachycardia which have been asymptomatic. I would not pursue further evaluation now. We may want to consider beta blockade for this. #5. Bacteremia: This is worrisome with his mechanical valve, so she since this is the second episode. His echocardiogram is pending. We may need to consider further evaluation, such as DARBY, but at the moment I would not arrange that. Thank you for allowing me to participate in his care.
--- NOTE | 2017-03-21 13:14 | Clinical Documentation Query ---
CLINICAL DOCUMENTATION QUERY Dr. DELACRUZ, In your clinical opinion is this patient being managed for: ( ) Staph Aureus Pneumonia ( ) Other explanation of clinical findings (Please Explain) ( x ) Unable to determine (Please Define)-initially thought to be PNA but now not likely ( ) Need to Discuss ( ) Not Agree The medical record reflects the following clinical findings, treatment, and risk factors. Clinical Indicators: 81 yo male presenting with fever, productive cough for yellow sputum and increasing dyspnea. WBC 26.22, blood cultures x 2 prelim with S aureus. VS 39.2-106-26, 122/79, 89% on 1.5 L. Treatment: IV vancomycin, IV Zosyn, IV azithromycin, O2 support, duonebs, guaifenesin, tele, IV fluid boluses in ER, ID consult Risk Factors: age, DM, recent hospital stay, CKD, COPD, DM Gram negative pneumonia is considered a "complex" respiratory infection due in part to the increased risk of mortality associated with the condition. However, unless the condition is described as "gram-negative" or the offending organism is identified in the physician's documentation, a diagnosis of "pneumonia" will not likely capture the severity of illness intended for this inpatient admission. Risk Factors: Immunosuppression, i.e., CA, HIV; certain drugs; chronic illness (COPD, CHF, DM, CKD); home respiratory therapy; and age extremes Clinical Indicators: fever, chills, tachycardia, tachypnea, elevated WBC with a "left shift", hypoxia, purulent sputum, "patchy" infiltrate on CXR Diagnostics: serial labs/CXRs, CT of the chest, pulse oximetry, ABGs Treatment: 02 support, mechanical ventilation, IV antibiotics including broad spectrum and gram negative specific drugs First suggested as a category of pneumonia in 2005 by the [place] [employer] and the Infectious Diseases Society of [place], HCAP is defined as category of pneumonia in individuals with recent close contact with the healthcare system (hospital, Long Term, extended care facility, cancer treatment center, dialysis center, outpatient surgery center). HCAP is more likely to be caused by bacteria resistant to first line antibiotics, such as MRSA and Pseudomonas. Symptoms: severe cough producing yellow/green mucus or blood, fever and shaking chills, shortness of breath, pleuritic chest pain, and confusion, tachypnea, tachycardia, elevated WBC. The elderly or demented patient may present with atypical symptoms. Risk: immunosuppression, inpatient hospitalization for 2 or more days within 90 days of admission, residence in a MT or shelter care facility, outpatient therapy within 30 days of admission, outpatient wound care within 30 days of admission, exposure to a family member with known multi-drug resistant pathogens. Treatment: Patients with HCAP are more likely than those with CAP to receive inappropriate antibiotics that do not target the bacteria causing their disease. In 2005, ATS and IDSA published guidelines suggesting antibiotics specifically for HCAP. The guideline recommended combination therapy to cover both Pseudomonas and MRSA (cefepime,ceftazidime, imipenem, or piperacillin-tazobactam + ciprofloxacin, levofloxacin, amikacin, gentamycin or tobramycin + vancomycin). Prognosis: HCAP seems to have fatality rates worse than CAP but less severe than VAP and may be influenced by underlying co-morbid conditions. Please clarify and document your clinical opinion in the progress notes and discharge summary. Terms such as "probable", "suspected", "likely", "questionable", "possible", or "still to be ruled out" are acceptable. IF IN AGREEMENT, YOU MUST DOCUMENT ABOVE DIAGNOSTIC STATEMENT IN DAILY PROGRESS NOTES AND DISCHARGE SUMMARY. This document is not part of the patient's record. Thank You, Alessandra Pink RN [phone]
--- NOTE | 2017-03-21 14:22 | Infectious Disease Progress Nt ---
Progress Note Date of Service Mar 21, 2017. Subjective Pt evaluation today including: conversation w/ patient, physical exam, chart review, lab review, review of studies, conversation w/ systems consultant, review of inpatient medication list offers no new complaints today. Remains afebrile. Follow-up blood cultures are pending. Cardiology consult reviewed. Tolerating antibiotic without apparent difficulty. All Other Systems: Reviewed and Negative Medications Current Inpatient Medications Medications (Trade) Dose Ordered Sig/Sukhwinder Route Start Time Stop Time Status Last Admin Dose Admin Acetaminophen (Tylenol Tab) 650 mg Q4H PRN PO 03/19/17 06:30 04/18/17 06:29 Ondansetron HCl (Zofran Inj) 4 mg Q6H PRN IV 03/19/17 06:30 04/18/17 06:29 Nitroglycerin (Nitrostat Tab) 0.4 mg UD PRN SL 03/19/17 06:30 04/18/17 06:29 Morphine Sulfate (MoRPHine SULFATE INJ) 2 mg Q30M PRN IV 03/19/17 06:30 04/02/17 06:29 Polyethylene (Miralax Powder Packet) 17 gm DAILY PRN PO 03/19/17 06:30 04/18/17 06:29 Levothyroxine Sodium (Synthroid Tab) 100 mcg DAILYBB PO 03/19/17 09:00 04/18/17 08:59 03/21/17 03:36 100 MCG Miconazole Nitrate (Desenex Powder) 1 appln DAILY EXT 03/19/17 09:00 04/18/17 08:59 03/21/17 08:37 1 APPLN Simvastatin (Zocor Tab) 20 mg DAILY PO 03/19/17 09:00 04/18/17 08:59 03/21/17 08:37 20 MG Tamsulosin HCl (Flomax Cap) 0.4 mg DAILY PO 03/19/17 09:00 04/18/17 08:59 03/21/17 08:37 0.4 MG Miscellaneous Information (Order Awaiting Action) 1 ea QS N/A 03/19/17 16:00 04/18/17 15:59 Albuterol/ Ipratropium (Duoneb) 3 ml QIDR INH 03/19/17 08:00 04/18/17 07:59 03/21/17 11:05 3 ML Azithromycin 500 mg/Dextrose 255 ml @ 125 mls/hr DAILY IV 03/19/17 09:00 03/26/17 08:59 03/21/17 08:38 125 MLS/HR Guaifenesin (Mucinex Contr Rel Tab) 600 mg Q12 PO 03/19/17 09:00 04/18/17 08:59 03/21/17 08:37 600 MG Piperacillin Sod/ Tazobactam Sod (Consult) 1 ea UD PRN N/A 03/19/17 07:00 04/18/17 06:59 Insulin Aspart (novoLOG ASPART) SLIDING SCALE G... ACHS SC 03/19/17 11:00 04/18/17 10:59 03/21/17 13:05 12 UNITS Piperacillin Sod/ Tazobactam Sod 4.5 gm/Dextrose 120 ml @ 30 mls/hr Q8H IV 03/19/17 12:00 03/26/17 05:59 03/21/17 03:36 30 MLS/HR Insulin Detemir (Levemir Flexpen/ FlexTouch) 10 units HS SC 03/20/17 21:00 04/19/17 20:59 03/20/17 21:52 10 UNITS Daptomycin 1000 mg/Sodium Chloride 70 ml @ 100 mls/hr Q48H IV 03/20/17 20:30 04/03/17 20:29 03/20/17 21:49 100 MLS/HR Insulin Detemir (Levemir Flexpen/ FlexTouch) 10 units QAM SC 03/21/17 09:00 04/20/17 08:59 03/21/17 08:41 10 UNITS Furosemide 40 mg/ Syringe 4 ml @ 4 mls/min TODAY@1030 IV 03/21/17 10:30 03/21/17 18:00 Budesonide (Pulmicort Respules 0.5MG/ 2ML Neb Soln) 1 mg BIDR INH 03/21/17 20:00 04/20/17 19:59 Objective Vital Signs Date Time Temp Pulse Resp B/P (MAP) Pulse Ox O2 Delivery O2 Flow Rate FiO2 03/21/17 12:00 Room Air 03/21/17 11:34 36.7 75 18 92/43 95 03/21/17 11:06 77 18 97 Room Air 03/21/17 08:05 36.7 100 20 133/68 (89) 92 Room Air Free Flow/Blowby 03/21/17 08:00 Room Air 03/21/17 07:22 75 18 93 Room Air 03/21/17 04:04 36.4 80 22 105/62 (76) 92 Room Air 03/21/17 04:00 97 BiPAP 03/21/17 00:01 97 BiPAP 03/21/17 00:00 36.8 78 20 99/52 (68) 97 CPAP 03/20/17 22:00 Nasal Cannula 3.0 03/20/17 19:35 36.7 70 16 111/64 (80) 100 Mask 7.0 03/20/17 19:24 67 18 93 Room Air 03/20/17 16:00 97 Room Air 03/20/17 15:44 36.9 72 16 102/46 (64) 97 Room Air 03/20/17 15:16 66 18 95 Room Air Physical Exam General Appearance: WD/WN, no apparent distress Eyes: normal inspection, sclerae normal ENT: normal ENT inspection, pharynx normal Neck: supple, no adenopathy, thyroid normal, trachea midline Respiratory/Chest: chest non-tender, lungs clear, normal breath sounds, no respiratory distress Cardiovascular: regular rate, rhythm, no gallop, + systolic murmur Abdomen: normal bowel sounds, non tender, soft, no organomegaly Extremities: non-tender, no calf tenderness Neurologic/Psychiatric: alert, oriented x 3 Skin: normal color, no rash Lymphatic: no adenopathy Laboratory Results Date/Time Source Procedure Growth Status 03/21/17 10:06 Blood Blood Culture Pending Received Last 24 Hours Test 03/20/17 14:41 03/20/17 16:00 03/20/17 16:13 03/20/17 21:06 Hemoglobin 7.9 g/dL Hematocrit 24.0 % Urine Osmolality 422 mOms/kg Bedside Glucose 258 mg/dl 351 mg/dl Test 03/20/17 21:44 03/20/17 22:15 03/21/17 06:25 03/21/17 06:50 Bedside Glucose 320 mg/dl 325 mg/dl Stool Occult Blood NEGATIVE White Blood Count 19.15 K/uL Red Blood Count 2.65 M/uL Hemoglobin 7.6 g/dL Hematocrit 23.0 % Mean Corpuscular Volume 86.8 fL Mean Corpuscular Hemoglobin 28.7 pg Mean Corpuscular Hemoglobin Concent 33.0 g/dl Platelet Count 312 K/uL Mean Platelet Volume 9.4 fL Neutrophils (%) (Auto) 88.5 % Lymphocytes (%) (Auto) 2.7 % Monocytes (%) (Auto) 8.0 % Eosinophils (%) (Auto) 0.3 % Basophils (%) (Auto) 0.1 % Neutrophils # (Auto) 16.97 K/uL Lymphocytes # (Auto) 0.51 K/uL Monocytes # (Auto) 1.53 K/uL Eosinophils # (Auto) 0.05 K/uL Basophils # (Auto) 0.01 K/uL RDW Standard Deviation 51.5 fL RDW Coefficient of Variation 16.2 % Immature Granulocyte % (Auto) 0.4 % Immature Granulocyte # (Auto) 0.08 K/uL Nucleated RBC Absolute Count (auto) 0.03 K/uL Nucleated Red Blood Cells % 0.1 % Toxic Granulation 1+ Toxic Vacuolation 1+ Dohle Bodies 1+ Hypochromasia PRESENT Anisocytosis PRESENT Target Cells 1+ Prothrombin Time 25.7 SECONDS Prothromb Time International Ratio 2.3 Sodium Level 131 mmol/L Potassium Level 4.0 mmol/L Chloride Level 99 mmol/L Carbon Dioxide Level 20 mmol/L Anion Gap 12.0 mmol/L Blood Urea Nitrogen 54 mg/dl Creatinine 2.60 mg/dl Est Creatinine Clear Calc Drug Dose 29.5 ml/min Estimated GFR () 25.7 Estimated GFR (Non- 22.1 BUN/Creatinine Ratio 20.8 Random Glucose 294 mg/dl Osmolality 301 mOsm/kg Calcium Level 8.3 mg/dl Total Bilirubin 1.3 mg/dl Aspartate Amino Transf (AST/SGOT) 47 U/L Alanine Aminotransferase (ALT/SGPT) 52 U/L Alkaline Phosphatase 439 U/L Lactate Dehydrogenase 361 U/L Troponin I 0.660 ng/ml Total Protein 6.4 gm/dl Albumin 2.7 gm/dl Globulin 3.7 gm/dl Albumin/Globulin Ratio 0.7 Random Vancomycin Level 17.7 mcg/ml Test 03/21/17 11:39 Bedside Glucose 361 mg/dl Assessment and Plan 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 Have changed patient to IV daptomycin as no evidence of pulmonary infection. Patient should have DARBY if possible to assess for PVE. Will discuss with all involved. To follow.
[2017-03-21] MEDS ORDERED: GLUCOSE 10 TABS/TUBE PO PRN (17:30)
[2017-03-21] MEDS ORDERED: GLUCAGON FOR INJ 1 MG VIAL SQ PRN (17:30)
[2017-03-21] MEDS ORDERED: DEXTROSE 50% 50 ML SYR IV PRN (17:30)
[2017-03-21] MEDS ORDERED: GLUCOSE 40% GEL 15 GM TUBE PO PRN (17:30)
[2017-03-21] MEDS ORDERED: INSULIN REGULAR 250 UNITS in SODIUM CHLORIDE 0.9% 250ML 250 ML IV SCH (17:45)
[2017-03-21] MEDS ORDERED: INSULIN HUMAN REGULAR IV BOLUS 3 UNIT in SYRINGE 0 ML IV SCH (17:45)
--- NOTE | 2017-03-21 18:07 | ECHOCARDIOGRAM REPORT ---
*NOTICE TO RECEIVING LIBERTARIAN AGENCY This information is strictly Confidential and protected under [place] law. [place] law prohibits you from making any further disclosure of this information unless further disclosure is expressly permitted by the written consent of the person to whom it pertains or is authorized by law. A general authorization for the release of medical or other information is not sufficient for this purpose. Hospital accepts no responsibility if the information is made available to any other person, INCLUDING THE PATIENT. Interpretation Summary * Name: SUE MANCINI III Study Date: 03/21/2017 06:53 AM BP: 105/62 mmHg * Patient Location: C.2T\S\S236\S\1 HR: 68 * : 1935 (M/d/yyyy) Gender: Male Height: 69 in * Age: 81 yrs Ethnicity: [place] Weight: 281 lb * Ordering Physician: Janneth Gold * Referring Physician: No Doctor, Assigned * Performed By: Louise Mckinley RCS * * Reason For Study: Endocarditis * BSA: 2.4 m2 * The diagnosis of endocarditis cannot be excluded on the basis of this study. The valves were not well visualized. * Normal overall left ventricular systolic function. * Mild concentric left ventricle hypertrophy. * Right ventricular volume/pressure overload. * Severe pulmonary hypertension. * Moderate biatrial dilatation. * Properly functioning bioprosthetic aortic valve. Appropriate gradient for a bioprosthetic valve. * Mild mitral, tricuspid, and pulmonic regurgitation. * Mild mitral stenosis. * Compared to an echocardiogram of January 04, 2017 there has been no significant interval change. * The study was technically difficult. * -- Conclusions -- * The study was technically difficult. Procedure Details * Left Ventricle The left ventricle is normal in size. There is mild concentric left ventricular hypertrophy. Ejection Fraction = 55-60%. Flattened septum is consistent with RV pressure/volume overload. Localized basal inferior hypokinesis. * Right Ventricle The right ventricle is mildly dilated. There is mild right ventricular hypertrophy. The right ventricular systolic function is moderately reduced. * Atria The left atrium is moderately dilated. The right atrium is moderately dilated. No ASD detected; PFO is not assessed. * Mitral Valve There is moderate to severe mitral annular calcification. Calcified mitral apparatus. On 2D imaging there appears to be at least mild mitral stenosis. No velocity or pressure gradient obtained across the mitral valve. * Tricuspid Valve The tricuspid valve is not well visualized. No significant tricuspid stenosis. There is mild tricuspid regurgitation. Right ventricular systolic pressure is elevated at >60mmHg. * Aortic Valve There is no significant aortic regurgitation. There is a bioprosthetic aortic valve. The gradient is normal for this prosthetic aortic valve. * Pulmonic Valve The pulmonic valve is not well visualized. The pulmonary valve is inadequately visualized, but the Doppler data is adequate for interpretation. There is no pulmonic valvular stenosis. Mild pulmonic valvular regurgitation. * Great Vessels The aortic root is normal size. The inferior vena cava is mildly dilated. * * MMode 2D Measurements and Calculations * IVSd 1.4 cm * * LVIDd 5.8 cm * LVIDs 3.8 cm * LVPWd 1.2 cm * * IVS/LVPW 1.2 * FS 33.9 % * EDV(Teich) 167.6 ml * ESV(Teich) 63.8 ml * EF(Teich) 62.0 % * * EDV(cubed) 196.6 ml * ESV(cubed) 56.9 ml * EF(cubed) 71.1 % * * LV mass(C)d 337.9 grams * LV mass(C)dI 141.6 grams/m\S\2 * * SV(Teich) 103.8 ml * SI(Teich) 43.5 ml/m\S\2 * SV(cubed) 139.8 ml * SI(cubed) 58.6 ml/m\S\2 * * Ao root diam 3.7 cm * Ao root area 10.5 cm\S\2 * LA dimension 4.6 cm * * LA/Ao 1.3 * * LVAd ap4 36.6 cm\S\2 * LVLd ap4 7.7 cm * EDV(MOD-sp4) 143.0 ml * LVAs ap4 21.9 cm\S\2 * LVLs ap4 6.9 cm * ESV(MOD-sp4) 58.8 ml * EF(MOD-sp4) 58.9 % * * LVAd ap2 40.0 cm\S\2 * LVLd ap2 8.9 cm * EDV(MOD-sp2) 151.0 ml * LVAs ap2 23.2 cm\S\2 * LVLs ap2 6.6 cm * ESV(MOD-sp2) 70.1 ml * EF(MOD-sp2) 53.6 % * * SV(MOD-sp4) 84.2 ml * SI(MOD-sp4) 35.3 ml/m\S\2 * * SV(MOD-sp2) 80.9 ml * SI(MOD-sp2) 33.9 ml/m\S\2 * * * Doppler Measurements and Calculations * Ao V2 max 241.9 cm/sec * Ao max PG 23.4 mmHg * Ao max PG (full) 20.2 mmHg * * LV V1 max PG 3.2 mmHg * * LV V1 max 89.3 cm/sec * * TR max faustino 407.7 cm/sec * *
[2017-03-21] MEDS: BUDESONIDE 0.5 MG/2 ML VIAL (PULMICORT) INH SCH (20:04)
[2017-03-22] VITALS (9 sets, daily range): BP systolic 98–120; BP diastolic 58–70; PULSE 60–78; TEMP 36.4–36.9; O2SAT 92–96; Ht 175.3 cm; Wt 129.0 kg
[2017-03-22] MEDS: PIPERACILL/TAZOBAC IV 4.5 GM in DEXTROSE 5% 100ML IV SCH (04:00)
[2017-03-22] MEDS ORDERED: VANCOMYCIN TROUGH SCH (05:30)
[2017-03-22] MEDS: LEVOTHYROXINE 100 MCG TAB PO SCH (05:56)
[2017-03-22] MEDS ORDERED: INSULIN ASPART 100 UNITS/ML 3 ML PEN SC SCH (07:00)
[2017-03-22] MEDS: ALBUT/IPRATROP 3MG/0.5MG NEB 3 ML VIAL INH SCH ×4 (07:03→19:20)
[2017-03-22] MEDS: BUDESONIDE 0.5 MG/2 ML VIAL (PULMICORT) INH SCH ×2 (07:03→19:20)
[2017-03-22 07:30] LABS: BASO % 0.1 %; BASO ABS # 0.01 K/uL (0-0.2); EOS % 0.5 %; HEMATOCRIT 26.5 % (42-52); IG% 0.7 %; LYMPH % 4.4 %; LYMPH ABS # 0.67 K/uL (1.2-3.4); MEAN CELL VOLUME 85.8 fL (80-100); MEAN CORPUSCULAR HEMOGLOBIN 28.5 pg (25-34); MEAN CORPUSCULAR HGB CONC 33.2 g/dl (32-36); MEAN PLATELET VOLUME 9.3 fL (7.4-10.4); MONO % 11.7 %; NEUT % 82.6 %; PLATELET COUNT 299 K/uL (130-400); RED BLOOD COUNT 3.09 M/uL (4.7-6.1); WHITE BLOOD COUNT 15.17 K/uL (4.8-10.8)
--- NOTE | 2017-03-22 07:53 | Hospitalist Progress Note ---
Hospitalist Progress Note Date of Service Mar 21, 2017. Subjective Pt evaluation today including: conversation w/ patient, conversation w/ interventional sale consultant (Dr. [facility]) Voiding: requires PRN straight cath Pt having trouble voiding, has had to be cathed 3 times. Otherwise feels good, no real cough Constitutional: No fever Respiratory: No shortness of breath Cardiovascular: No chest pain Musculoskeletal: No problem reported All Other Systems: Reviewed and Negative Objective Vital Signs Date Time Temp Pulse Resp B/P (MAP) Pulse Ox O2 Delivery O2 Flow Rate FiO2 03/21/17 11:06 77 18 97 Room Air 03/21/17 08:05 36.7 100 20 133/68 (89) 92 Room Air Free Flow/Blowby 03/21/17 07:22 75 18 93 Room Air 03/21/17 04:04 36.4 80 22 105/62 (76) 92 Room Air 03/21/17 04:00 97 BiPAP 03/21/17 00:01 97 BiPAP 03/21/17 00:00 36.8 78 20 99/52 (68) 97 CPAP 03/20/17 22:00 Nasal Cannula 3.0 03/20/17 19:35 36.7 70 16 111/64 (80) 100 Mask 7.0 03/20/17 19:24 67 18 93 Room Air 03/20/17 16:00 97 Room Air 03/20/17 15:44 36.9 72 16 102/46 (64) 97 Room Air 03/20/17 15:16 66 18 95 Room Air 03/20/17 12:03 36.7 66 16 101/60 (74) 96 03/20/17 12:00 96 Nasal Cannula 2.0 Physical Exam General Appearance: WD/WN, no apparent distress, + obese Eyes: normal inspection, sclerae normal ENT: hearing grossly normal Neck: trachea midline Respiratory/Chest: no respiratory distress, no accessory muscle use, + crackles (faint at bases) Cardiovascular: no murmur, + irregularly irregular, + pertinent finding (trace pitting edema legs bilat to knees) Abdomen: normal bowel sounds, non tender, soft Extremities: non-tender, no calf tenderness Neurologic/Psychiatric: alert, normal mood/affect Skin: normal color, warm/dry, no rash (but with dry skin on legs) Laboratory Results Last 24 Hours Test 03/20/17 11:24 03/20/17 14:41 03/20/17 16:00 03/20/17 16:13 Bedside Glucose 238 mg/dl 258 mg/dl Hemoglobin 7.9 g/dL Hematocrit 24.0 % Urine Osmolality 422 mOms/kg Test 03/20/17 21:06 03/20/17 21:44 03/20/17 22:15 03/21/17 06:25 Bedside Glucose 351 mg/dl 320 mg/dl Stool Occult Blood NEGATIVE White Blood Count 19.15 K/uL Red Blood Count 2.65 M/uL Hemoglobin 7.6 g/dL Hematocrit 23.0 % Mean Corpuscular Volume 86.8 fL Mean Corpuscular Hemoglobin 28.7 pg Mean Corpuscular Hemoglobin Concent 33.0 g/dl Platelet Count 312 K/uL Mean Platelet Volume 9.4 fL Neutrophils (%) (Auto) 88.5 % Lymphocytes (%) (Auto) 2.7 % Monocytes (%) (Auto) 8.0 % Eosinophils (%) (Auto) 0.3 % Basophils (%) (Auto) 0.1 % Neutrophils # (Auto) 16.97 K/uL Lymphocytes # (Auto) 0.51 K/uL Monocytes # (Auto) 1.53 K/uL Eosinophils # (Auto) 0.05 K/uL Basophils # (Auto) 0.01 K/uL RDW Standard Deviation 51.5 fL RDW Coefficient of Variation 16.2 % Immature Granulocyte % (Auto) 0.4 % Immature Granulocyte # (Auto) 0.08 K/uL Nucleated RBC Absolute Count (auto) 0.03 K/uL Nucleated Red Blood Cells % 0.1 % Toxic Granulation 1+ Toxic Vacuolation 1+ Dohle Bodies 1+ Hypochromasia PRESENT Anisocytosis PRESENT Target Cells 1+ Prothrombin Time 25.7 SECONDS Prothromb Time International Ratio 2.3 Sodium Level 131 mmol/L Potassium Level 4.0 mmol/L Chloride Level 99 mmol/L Carbon Dioxide Level 20 mmol/L Anion Gap 12.0 mmol/L Blood Urea Nitrogen 54 mg/dl Creatinine 2.60 mg/dl Est Creatinine Clear Calc Drug Dose 29.5 ml/min Estimated GFR () 25.7 Estimated GFR (Non- 22.1 BUN/Creatinine Ratio 20.8 Random Glucose 294 mg/dl Osmolality 301 mOsm/kg Calcium Level 8.3 mg/dl Total Bilirubin 1.3 mg/dl Aspartate Amino Transf (AST/SGOT) 47 U/L Alanine Aminotransferase (ALT/SGPT) 52 U/L Alkaline Phosphatase 439 U/L Lactate Dehydrogenase 361 U/L Troponin I 0.660 ng/ml Total Protein 6.4 gm/dl Albumin 2.7 gm/dl Globulin 3.7 gm/dl Albumin/Globulin Ratio 0.7 Random Vancomycin Level 17.7 mcg/ml Test 03/21/17 06:50 Bedside Glucose 325 mg/dl Assessment and Plan 81-year-old male with past medical history of atrial fibrillation, coronary artery disease status post CABG, chronic dCHF, hypertension, COPD, hypothyroidism, DMII, elevated LFTs, sleep apnea, pulmonary hypertension, secondary hyperparathyroidism, stage III kidney disease, and recent admission for anemia requiring transfusion, presented to the ER with complaints of acute onset shortness of breath, cough, and fever. Evidence of suspected PNA with right pleural effusion, sepsis and now bacteremia in all sets of BCxs as well as UTI. Was hypotensive on arrival which responded to IVFs. Acute hypoxemic respiratory failure/HCAP/Sepsis/UTI/MRSA Bacteremia/COPD- improving with abx and IVFs. MRSA bacteremia; has h/o recent treatment for MRSA foot infection/OM. Unclear source again of RMSA bacteremia Urine growing E. coli - CXR: 1. Cardiomegaly and mild pulmonary vascular congestion. Small right pleural effusion. 2. 17 mm opacity visualized posterio-laterally on the lateral view. This may represent a summation. Short-term radiographic follow-up is recommended.--*repeat CXR in 1-2 days - received IV vancomycin, Zosyn, azithromycin and switched vanc to Dapto as per ID and based on cultures--> narrowed to Dapto as ID does not suspect Pulm source -need to see if can stop Zosyn and azithro? -ID consultation appreciated - oxygen per protocol-weaned off - duonebs - guaifenesin Anemia: hgb at 8.4 on admission with slight drop after IVF resuscitation, had colonoscopy and EGD last week which found no source of bleeding. He was back on his coumadin since then Hgb at ok from recent admission 8.4 on 03/17/17 --> dropped today to 7.6 - Received 2 units of PRBC transfusion during last admission - colonoscopy on 03/15, multiple polyps, 6-8mm in size, no masses, no active bleeding - EGD normal -transfuse 2 units today - capsule endoscopy was not done during last admission and plan was to transfuse as an OP if hgb dropped - Coumadin Currently held, restart when stable -follow CBC, hemoccult stool negative Atrial fibrillation, CAD s/p CABG, porcine AVR, chronic dCHF, Pulm HTN, Elevated troponin-peak trop 1.5, likely demand ischemia in setting of sepsis. Appreciate Cardiology consultation - Rate controlled without AV keren blocking agent - Coumadin currently held -continue tele EVENS-use CPAP CARLO in setting of CKD stage III-IV: - Cr at 2.7 at peak, now slightly improved 2.6, baseline 1.7, likely secondary to ATN from hypotension and sepsis - held lasix on admission -appreciate Nephrology consult in case of need for [employer]OD [employer] DM T2:with hyperglycemia ISS and added Levemir -check A1C -start insulin gtt today for persistent hyperglycemia elevated alk phos: chronic -check GGT hypothyroidism: - continue synthroid Full code Proph-holding chemical AC until hemoccult stool SCDs Dispo: Admitted to tele
[2017-03-22] MEDS ORDERED: NURSING VERBAL MED ORDER ONE (08:00)
[2017-03-22 08:01] LABS: ANISOCYTOSIS PRESENT; COMPLETE YES
[2017-03-22 08:05] LABS: BUN/CREATININE RATIO 23.4 (10-20); CALCIUM 8.5 mg/dl (8.5-10.1); CREATININE 2.1 mg/dl (0.60-1.40); POTASSIUM 3.6 mmol/L (3.5-5.1)
[2017-03-22 08:07] LABS: ALB/GLOB RATIO 0.7 (0.9-2)
[2017-03-22] MEDS ORDERED: INSULIN DETEMIR FLEXPEN/FLEX TOUCH 100 UNITS/ML 3ML SC ONE (09:00)
[2017-03-22] MEDS: TAMSULOSIN HCL 0.4 MG CAP PO SCH (09:02)
[2017-03-22] MEDS: GUAIFENESIN 600 MG TABCR PO SCH ×2 (09:02→20:33)
[2017-03-22] MEDS: SIMVASTATIN 20 MG TAB PO SCH (09:02)
[2017-03-22] MEDS: AZITHROMYCIN IV 500 MG in DEXTROSE 5% 250ML 250 ML IV SCH (09:02)
[2017-03-22] MEDS: MICONAZOLE NITRATE POWDER 43 GM EXT SCH (09:03)
[2017-03-22] MEDS: INSULIN ASPART 100 UNITS/ML 3 ML PEN SC SCH ×4 (09:05→20:39)
--- NOTE | 2017-03-22 09:52 | Nephrology Progress Note ---
Nephrology Progress Note Date of Service Mar 22, 2017. Chief Complaint CARLO/CKD, anemia Subjective No acute events overnight. Chad was seen and evaluated in his hospital room this morning. He denies shortness of breath. He reports increasing generalized weakness. He denies chest pain or palpitations. Appetite good. Mckeon catheter placed without difficulty. No fevers or chills. Review of Systems A complete review of systems was performed. Pertinent positives are noted above. All other systems are negative. Vital Signs Last 8 Hrs Date Time Temp Pulse Resp B/P (MAP) Pulse Ox O2 Delivery O2 Flow Rate FiO2 03/22/17 09:18 36.8 70 22 98/58 (71) 94 Room Air 03/22/17 08:00 Room Air 03/22/17 07:03 71 18 94 Room Air 03/22/17 04:32 36.9 63 19 101/61 (74) 92 Room Air 03/22/17 04:00 Room Air Last Recorded Weight Weight (Kilograms): 129.000 Physical Exam General Appearance: no apparent distress, + obese Head: normocephalic, atraumatic Eyes: normal inspection, sclerae normal ENT: normal ENT inspection, pharynx normal Neck: supple, no JVD Respiratory/Chest: lungs clear, no respiratory distress, no accessory muscle use Cardiovascular: regular rate, rhythm, no gallop Abdomen/GI: non tender, soft Genitourinary - Male: + pertinent finding (Mckeon draining cloudy yellow urine) Extremities/Musculoskelatal: normal inspection, + pedal edema Neurologic/Psych: alert, normal mood/affect Family History FH: diabetes mellitus FH: hypertension Social History Marital Status: Occupation: retired Laboratory Results Past 24 Hours 03/22/17 07:11 Red Blood Count 3.09, Mean Corpuscular Volume 85.8, Mean Corpuscular Hemoglobin 28.5, Mean Corpuscular Hemoglobin Concent 33.2, Mean Platelet Volume 9.3, Neutrophils (%) (Auto) 82.6, Lymphocytes (%) (Auto) 4.4, Monocytes (%) (Auto) 11.7, Eosinophils (%) (Auto) 0.5, Basophils (%) (Auto) 0.1, Neutrophils # (Auto ) 12.53, Lymphocytes # (Auto) 0.67, Monocytes # (Auto) 1.77, Eosinophils # (Auto ) 0.08, Basophils # (Auto) 0.01 03/22/17 07:11 Test 03/21/17 11:39 03/21/17 16:20 03/21/17 19:02 03/21/17 20:02 Bedside Glucose 361 mg/dl (70-99) 354 mg/dl (70-99) 391 mg/dl (70-99) 333 mg/dl (70-99) Test 03/21/17 20:59 03/21/17 22:04 03/21/17 23:06 03/22/17 00:05 Bedside Glucose 319 mg/dl (70-99) 310 mg/dl (70-99) 279 mg/dl (70-99) 270 mg/dl (70-99) Test 03/22/17 01:06 03/22/17 01:59 03/22/17 03:11 03/22/17 04:33 Bedside Glucose 223 mg/dl (70-99) 218 mg/dl (70-99) 200 mg/dl (70-99) 134 mg/dl (70-99) Test 03/22/17 06:33 03/22/17 07:11 03/22/17 09:42 Bedside Glucose 182 mg/dl (70-99) White Blood Count 15.17 K/uL (4.8-10.8) Red Blood Count 3.09 M/uL (4.7-6.1) Hemoglobin 8.8 g/dL (14.0-18.0) Hematocrit 26.5 % (42-52) Mean Corpuscular Volume 85.8 fL (80-100) Mean Corpuscular Hemoglobin 28.5 pg (25-34) Mean Corpuscular Hemoglobin Concent 33.2 g/dl (32-36) Platelet Count 299 K/uL (130-400) Mean Platelet Volume 9.3 fL (7.4-10.4) Neutrophils (%) (Auto) 82.6 % Lymphocytes (%) (Auto) 4.4 % Monocytes (%) (Auto) 11.7 % Eosinophils (%) (Auto) 0.5 % Basophils (%) (Auto) 0.1 % Neutrophils # (Auto) 12.53 K/uL (1.4-6.5) Lymphocytes # (Auto) 0.67 K/uL (1.2-3.4) Monocytes # (Auto) 1.77 K/uL (0.11-0.59) Eosinophils # (Auto) 0.08 K/uL (0-0.5) Basophils # (Auto) 0.01 K/uL (0-0.2) RDW Standard Deviation 49.0 fL (36.4-46.3) RDW Coefficient of Variation 15.8 % (11.5-14.5) Immature Granulocyte % (Auto) 0.7 % Immature Granulocyte # (Auto) 0.11 K/uL (0.00-0.02) Anisocytosis PRESENT Anion Gap 12.0 mmol/L (3-11) Est Creatinine Clear Calc Drug Dose 36.7 ml/min Estimated GFR () 33.2 Estimated GFR (Non- 28.7 BUN/Creatinine Ratio 23.4 (10-20) Calcium Level 8.5 mg/dl (8.5-10.1) Total Bilirubin 1.4 mg/dl (0.2-1) Aspartate Amino Transf (AST/SGOT) 50 U/L (15-37) Alanine Aminotransferase (ALT/SGPT) 56 U/L (12-78) Alkaline Phosphatase 497 U/L (45-117) Total Protein 6.1 gm/dl (6.4-8.2) Albumin 2.6 gm/dl (3.4-5.0) Globulin 3.5 gm/dl (2.5-4.0) Albumin/Globulin Ratio 0.7 (0.9-2) Allergies Coded Allergies: Chlorpheniramine (Unverified Allergy, Unknown, ., 03/19/17) Phenylpropanolamine (Unverified Allergy, Unknown, ., 03/19/17) Medications Current Inpatient Medications Medications (Trade) Dose Ordered Sig/Sukhwinder Route Start Time Stop Time Status Last Admin Dose Admin Acetaminophen (Tylenol Tab) 650 mg Q4H PRN PO 03/19/17 06:30 04/18/17 06:29 Ondansetron HCl (Zofran Inj) 4 mg Q6H PRN IV 03/19/17 06:30 8 06:29 Nitroglycerin (Nitrostat Tab) 0.4 mg UD PRN SL 03/19/17 06:30 04/18/17 06:29 Morphine Sulfate (MoRPHine SULFATE INJ) 2 mg Q30M PRN IV 03/19/17 06:30 04/02/17 06:29 Polyethylene (Miralax Powder Packet) 17 gm DAILY PRN PO 03/19/17 06:30 04/18/17 06:29 Levothyroxine Sodium (Synthroid Tab) 100 mcg DAILYBB PO 03/19/17 09:00 04/18/17 08:59 03/22/17 05:56 100 MCG Miconazole Nitrate (Desenex Powder) 1 appln DAILY EXT 03/19/17 09:00 04/18/17 08:59 03/22/17 09:03 1 APPLN Simvastatin (Zocor Tab) 20 mg DAILY PO 03/19/17 09:00 04/18/17 08:59 03/22/17 09:02 20 MG Tamsulosin HCl (Flomax Cap) 0.4 mg DAILY PO 03/19/17 09:00 04/18/17 08:59 03/22/17 09:02 0.4 MG Albuterol/ Ipratropium (Duoneb) 3 ml QIDR INH 03/19/17 08:00 04/18/17 07:59 03/22/17 07:03 3 ML Guaifenesin (Mucinex Contr Rel Tab) 600 mg Q12 PO 03/19/17 09:00 04/18/17 08:59 03/22/17 09:02 600 MG Daptomycin 1000 mg/Sodium Chloride 70 ml @ 100 mls/hr Q48H IV 03/20/17 20:30 04/03/17 20:29 03/20/17 21:49 100 MLS/HR Budesonide (Pulmicort Respules 0.5MG/ 2ML Neb Soln) 1 mg BIDR INH 03/21/17 20:00 04/20/17 19:59 03/22/17 07:03 1 MG Glucose (Glucose 40% Gel) 15-30 GRAMS 15 GRAMS... UD PRN PO 03/21/17 17:30 04/20/17 17:29 Glucose (Glucose Chew Tab) 4-8 Tablets 4 Tabl... UD PRN PO 03/21/17 17:30 04/20/17 17:29 Dextrose (Dextrose 50% 50ML Syringe) 25-50ML OF 50% DW IV FOR... UD PRN IV 03/21/17 17:30 04/20/17 17:29 Glucagon (Glucagon Inj) 1 mg UD PRN SQ 03/21/17 17:30 04/20/17 17:29 Insulin Aspart (novoLOG ASPART) SLIDING SCALE ACHS SC 03/22/17 11:00 04/21/17 10:59 03/22/17 09:05 6 UNITS Impression (1) Acute kidney injury (2) Hyponatremia (3) Hypotension (4) Pneumonia (5) Anemia (6) Chronic kidney disease (7) CHF (congestive heart failure) (8) Metabolic acidosis Mr. Avery is an 81-year-old male with chronic kidney disease III (baseline creatinine ~1.8 ) , CHF with right-sided heart failure and pulmonary hypertension, COPD, osteomyelitis and recurrent hospitalizations. He has E coli UTI and recurrent MRSA bacteremia complicated by acute kidney injury. Medical history also notable for significant persistent anemia. Anemia is likely multifactorial in nature. LDH is slightly elevated. Hemoglobin increased but not ideally with transfusion yesterday. Will check retic count, peripheral smear and haptoglobin today. After retic count drawn start EPO. Recommendations CARLO: -- Maintain slightly negative fluid balance -- Start furosemide 20 mg daily -- Medications appropriately dosed for renal function -- Document I/O's and repeat metabolic profile tomorrow AM Anemia: -- 2 u PRBC yesterday -- Check retic count, peripheral smear and haptoglobin -- E[place] 26308 units SQ today -- Repeat H/H tomorrow AM MRSA bacteremia/osteomyelitis: -- TTE reviewed this morning -- ID/cardiology consults -- Repeat blood culture pending Hyponatremia: -- Maintain free water restriction and monitor
[2017-03-22] MEDS ORDERED: EPOETIN ALFA 20,000 UNITS/ML VIAL SQ ONE (11:00)
--- NOTE | 2017-03-22 11:12 | Urology Consultation ---
History General Date of Service: Mar 22, 2017. Chief Complaint: urinary retention Primary Care Physician: Winston Harper M.D. Pt seen a urologist before?: Yes If yes, why?: several years ago in [facility] for recurrent UTI History of Present Illness 81 yo male admitted with sepsis. consulted for urinary retention. The pt was straight cathed x 3, and rucker catheter replaced yesterday for >700ml of urine return. Rucker now draining clear, yellow urine. The pt is on Flomax. He has not seen a urologist for many years. Last saw one while living in [place] for recurrent UTI. He reports baseline nocturia depending on when he took his Lasix during the day. Also reports urgency with leaking and foul smelling urine. Denies baseline weak stream or hesitancy. UC&S growing e coli. Currently on Daptomycin for MRSA. Laboratory Last 24 Hours Test 03/21/17 11:39 03/21/17 16:20 03/21/17 19:02 03/21/17 20:02 Bedside Glucose 361 mg/dl 354 mg/dl 391 mg/dl 333 mg/dl Test 03/21/17 20:59 03/21/17 22:04 03/21/17 23:06 03/22/17 00:05 Bedside Glucose 319 mg/dl 310 mg/dl 279 mg/dl 270 mg/dl Test 03/22/17 01:06 03/22/17 01:59 03/22/17 03:11 03/22/17 04:33 Bedside Glucose 223 mg/dl 218 mg/dl 200 mg/dl 134 mg/dl Test 03/22/17 06:33 03/22/17 07:11 03/22/17 09:54 Bedside Glucose 182 mg/dl White Blood Count 15.17 K/uL Red Blood Count 3.09 M/uL Hemoglobin 8.8 g/dL Hematocrit 26.5 % Mean Corpuscular Volume 85.8 fL Mean Corpuscular Hemoglobin 28.5 pg Mean Corpuscular Hemoglobin Concent 33.2 g/dl Platelet Count 299 K/uL Mean Platelet Volume 9.3 fL Neutrophils (%) (Auto) 82.6 % Lymphocytes (%) (Auto) 4.4 % Monocytes (%) (Auto) 11.7 % Eosinophils (%) (Auto) 0.5 % Basophils (%) (Auto) 0.1 % Neutrophils # (Auto) 12.53 K/uL Lymphocytes # (Auto) 0.67 K/uL Monocytes # (Auto) 1.77 K/uL Eosinophils # (Auto) 0.08 K/uL Basophils # (Auto) 0.01 K/uL RDW Standard Deviation 49.0 fL RDW Coefficient of Variation 15.8 % Immature Granulocyte % (Auto) 0.7 % Immature Granulocyte # (Auto) 0.11 K/uL Anisocytosis PRESENT Sodium Level 137 mmol/L Potassium Level 3.6 mmol/L Chloride Level 104 mmol/L Carbon Dioxide Level 21 mmol/L Anion Gap 12.0 mmol/L Blood Urea Nitrogen 49 mg/dl Creatinine 2.10 mg/dl Est Creatinine Clear Calc Drug Dose 36.7 ml/min Estimated GFR () 33.2 Estimated GFR (Non- 28.7 BUN/Creatinine Ratio 23.4 Random Glucose 165 mg/dl Calcium Level 8.5 mg/dl Total Bilirubin 1.4 mg/dl Aspartate Amino Transf (AST/SGOT) 50 U/L Alanine Aminotransferase (ALT/SGPT) 56 U/L Alkaline Phosphatase 497 U/L Total Protein 6.1 gm/dl Albumin 2.6 gm/dl Globulin 3.5 gm/dl Albumin/Globulin Ratio 0.7 Absolute Reticulocyte Count 0.18 10^6/uL Percent Reticulocyte Count 5.8 % Problem List Medical Problems: (1) Anemia Status: Chronic (2) Cellulitis of left lower extremity Status: Acute (3) Chronic kidney disease Status: Acute (4) Hypoxia Status: Acute (5) Lactic acid acidosis Status: Acute (6) Leukocytosis Status: Acute (7) Pneumonia Status: Acute (8) Sepsis Status: Acute (9) Sepsis Status: Acute Past History A Fib, congestive heart failure, COPD, coronary artery disease, diabetes, high cholesterol, hypertension, hypothyroidism, other (pulmonary hypertension, secondary hyperparathyroidism, stage 3 CKD, obstructive sleep apnea) Past Surgical History: coronary bypass surgery Family History FH: diabetes mellitus FH: hypertension Social History Hx Tobacco Use In Past Year?: No Smoking: non-smoker Drug use: none Marital status: Occupation status: retired History of MDRO Yes Type of MDRO: MRSA Allergies Coded Allergies: Chlorpheniramine (Unverified Allergy, Unknown, ., 03/19/17) Phenylpropanolamine (Unverified Allergy, Unknown, ., 03/19/17) Medications Home Medications: Home Meds and Scripts Medications Dose Route/Sig Max Daily Dose Days Date Category Ventolin Hfa (Albuterol) 200 Puffs/34822 Mcg Aers 1-2 Puffs INH Q6H PRN 03/19/17 Reported Pulmicort (Budesonide (Inhalation)) 1 Mg/2 Ml Milagros 1 Dose INH UD PRN 03/13/17 Reported Coumadin (Warfarin Sod) 2.5 Mg Tab 1 Tab PO -Sun03/08/17 Reported Coumadin (Warfarin Sod) 5 Mg Tab 1 Tab PO [id number]/08/17 Reported Humulin 70/30 (Insulin Human Isoph/Insulin Regular) Susp 20 Units SC BID 03/08/17 Reported Lasix (Furosemide) 40 Mg Tab 40 Mg PO BID 03/08/17 Reported Vitamin D 73459 Unit (Ergocalciferol) 50,000 Unit Cap 1 Cap PO WK 28 03/08/17 Reported Desenex Shake Powder (Miconazole Nitrate) 43 Appln/43 Gm Powd 1 Appln EXT DAILY 01/17/17 Rx Oxygen Gas 1.5 Liter NA HS PRN 01/02/17 Reported Duoneb (Ipratropium-Albuterol) 3 Ml Nebu 1 Treatment INH Q4H PRN 01/02/17 Reported Flomax (Tamsulosin Hcl) 0.4 Mg Cap 0.4 Mg PO DAILY 01/02/17 Reported Zocor (Simvastatin) 20 Mg Tab 20 Mg PO DAILY 01/02/17 Reported Levothyroxine Sodium 100 Mcg Tab 100 Mcg PO DAILY 01/02/17 Reported Inpatient Medications: Current Inpatient Medications Medications (Trade) Dose Ordered Sig/Sukhwinder Route Start Time Stop Time Status Last Admin Dose Admin Acetaminophen (Tylenol Tab) 650 mg Q4H PRN PO 03/19/17 06:30 04/18/17 06:29 Ondansetron HCl (Zofran Inj) 4 mg Q6H PRN IV 03/19/17 06:30 04/18/17 06:29 Nitroglycerin (Nitrostat Tab) 0.4 mg UD PRN SL 03/19/17 06:30 04/18/17 06:29 Morphine Sulfate (MoRPHine SULFATE INJ) 2 mg Q30M PRN IV 03/19/17 06:30 04/02/17 06:29 Polyethylene (Miralax Powder Packet) 17 gm DAILY PRN PO 03/19/17 06:30 04/18/17 06:29 Levothyroxine Sodium (Synthroid Tab) 100 mcg DAILYBB PO 03/19/17 09:00 04/18/17 08:59 03/22/17 05:56 100 MCG Miconazole Nitrate (Desenex Powder) 1 appln DAILY EXT 03/19/17 09:00 04/18/17 08:59 03/22/17 09:03 1 APPLN Simvastatin (Zocor Tab) 20 mg DAILY PO 03/19/17 09:00 04/18/17 08:59 03/22/17 09:02 20 MG Tamsulosin HCl (Flomax Cap) 0.4 mg DAILY PO 03/19/17 09:00 04/18/17 08:59 03/22/17 09:02 0.4 MG Albuterol/ Ipratropium (Duoneb) 3 ml QIDR INH 03/19/17 08:00 04/18/17 07:59 03/22/17 07:03 3 ML Guaifenesin (Mucinex Contr Rel Tab) 600 mg Q12 PO 03/19/17 09:00 04/18/17 08:59 03/22/17 09:02 600 MG Daptomycin 1000 mg/Sodium Chloride 70 ml @ 100 mls/hr Q48H IV 03/20/17 20:30 04/03/17 20:29 03/20/17 21:49 100 MLS/HR Budesonide (Pulmicort Respules 0.5MG/ 2ML Neb Soln) 1 mg BIDR INH 03/21/17 20:00 04/20/17 19:59 03/22/17 07:03 1 MG Glucose (Glucose 40% Gel) 15-30 GRAMS 15 GRAMS... UD PRN PO 03/21/17 17:30 04/20/17 17:29 Glucose (Glucose Chew Tab) 4-8 Tablets 4 Tabl... UD PRN PO 03/21/17 17:30 04/20/17 17:29 Dextrose (Dextrose 50% 50ML Syringe) 25-50ML OF 50% DW IV FOR... UD PRN IV 03/21/17 17:30 04/20/17 17:29 Glucagon (Glucagon Inj) 1 mg UD PRN SQ 03/21/17 17:30 04/20/17 17:29 Insulin Aspart (novoLOG ASPART) SLIDING SCALE ACHS SC 03/22/17 11:00 04/21/17 10:59 03/22/17 09:05 6 UNITS Epoetin Wally (Procrit Inj) 20,000 units 1100 ONCE SQ 03/22/17 11:00 03/22/17 11:01 Warfarin Sodium (Coumadin Tab) 5 mg DAILY@16 PO 03/22/17 16:00 04/21/17 15:59 UNV Review of Systems Review of Systems Constitutional: No fever, No chills Eyes: No double vision Neurological: No dizzy Endocrine: No excessive thirst Gastrointestinal: No abdominal pain, No nausea, No vomiting Cardiovascular: No chest pain Respiratory: No shortness of breath Skin: No rash Musculoskeletal: + arthritis Male : No blood in urine Physical Exam Vital Signs: Vital Signs Past 12 Hours Date Time Temp Pulse Resp B/P (MAP) Pulse Ox O2 Delivery O2 Flow Rate FiO2 03/22/17 09:18 36.8 70 22 98/58 (71) 94 Room Air 03/22/17 08:00 Room Air 03/22/17 07:03 71 18 94 Room Air 03/22/17 04:32 36.9 63 19 101/61 (74) 92 Room Air 03/22/17 04:00 Room Air 03/22/17 00:01 Room Air 03/21/17 23:10 36.6 74 20 117/62 (80) 94 Room Air Physical Exam: General Appearance: no apparent distress, + obese Eyes: bilateral eyes normal inspection ENT: hearing grossly normal Neck: no JVD Respiratory/Chest: no respiratory distress, no accessory muscle use Cardiovascular: no JVD Extremities: normal inspection Neurologic/Psychiatric: alert, normal mood/affect, oriented x 3 Skin: normal color Assessment & Plan Assessment & Plan A/P: Urinary retention, UTI UR likely secondary to BPH. Will leave rucker catheter in place for now. Attempt a trial of void as an outpatient next week. Continue Flomax. As for his UTI, would recommend considering adding an oral abx to cover e coli. Discussed with Dr. Gold. Pt received 3 days of Zosyn, and will get 4 days of Cipro to cover for 7 days of therapy. Thanks for the consult. Will arrange for outpatient TOV next week. No further management at this time. Recall PRN issues.
--- NOTE | 2017-03-22 11:21 | Hospitalist Progress Note ---
Hospitalist Progress Note Date of Service Mar 22, 2017. Subjective Pt evaluation today including: conversation w/ patient, conversation w/ family , conversation w/ software developer consultant (Urology [facility], ID Dr. Rabago) Voiding: rucker catheter in place Pt feeling a little sore in the back from the bed. Glucose improved on insulin gtt. No cough or SOB. Had questionable 4 beat run VT on tele but appears to possibly be artifact All Other Systems: Reviewed and Negative Objective Vital Signs Date Time Temp Pulse Resp B/P (MAP) Pulse Ox O2 Delivery O2 Flow Rate FiO2 03/22/17 09:18 36.8 70 22 98/58 (71) 94 Room Air 03/22/17 08:00 Room Air 03/22/17 07:03 71 18 94 Room Air 03/22/17 04:32 36.9 63 19 101/61 (74) 92 Room Air 03/22/17 04:00 Room Air 03/22/17 00:01 Room Air 03/21/17 23:10 36.6 74 20 117/62 (80) 94 Room Air 03/21/17 20:06 71 18 97 Room Air 03/21/17 20:00 Room Air 03/21/17 19:04 36.7 73 18 119/62 (81) 95 Room Air 03/21/17 17:05 36.7 81 18 128/58 97 03/21/17 16:20 76 18 125/71 96 03/21/17 15:50 36.5 76 128/75 96 03/21/17 15:39 77 18 99 Room Air 03/21/17 15:20 76 18 129/76 94 03/21/17 15:05 36.3 70 18 118/68 94 03/21/17 14:49 36.3 70 16 115/67 97 03/21/17 14:00 36.8 72 18 110/66 96 03/21/17 12:50 36.9 76 16 128/66 97 03/21/17 12:20 36.8 78 16 118/65 97 03/21/17 12:00 Room Air 03/21/17 11:50 36.8 80 16 139/64 96 03/21/17 11:34 36.7 75 18 92/43 95 03/21/17 11:06 77 18 97 Room Air Physical Exam General Appearance: no apparent distress, + obese Eyes: normal inspection, sclerae normal ENT: hearing grossly normal Neck: trachea midline Respiratory/Chest: lungs clear, normal breath sounds, no respiratory distress, no accessory muscle use Cardiovascular: no gallop, no murmur, + irregularly irregular, + pertinent finding (trace pitting edema legs bilat) Abdomen: normal bowel sounds, non tender, soft Extremities: no calf tenderness Neurologic/Psychiatric: alert, normal mood/affect, oriented x 3 Skin: normal color, warm/dry, no rash Laboratory Results Last 24 Hours Test 03/21/17 11:39 03/21/17 16:20 03/21/17 19:02 03/21/17 20:02 Bedside Glucose 361 mg/dl 354 mg/dl 391 mg/dl 333 mg/dl Test 03/21/17 20:59 03/21/17 22:04 03/21/17 23:06 03/22/17 00:05 Bedside Glucose 319 mg/dl 310 mg/dl 279 mg/dl 270 mg/dl Test 03/22/17 01:06 03/22/17 01:59 03/22/17 03:11 03/22/17 04:33 Bedside Glucose 223 mg/dl 218 mg/dl 200 mg/dl 134 mg/dl Test 03/22/17 06:33 03/22/17 07:11 03/22/17 09:54 Bedside Glucose 182 mg/dl White Blood Count 15.17 K/uL Red Blood Count 3.09 M/uL Hemoglobin 8.8 g/dL Hematocrit 26.5 % Mean Corpuscular Volume 85.8 fL Mean Corpuscular Hemoglobin 28.5 pg Mean Corpuscular Hemoglobin Concent 33.2 g/dl Platelet Count 299 K/uL Mean Platelet Volume 9.3 fL Neutrophils (%) (Auto) 82.6 % Lymphocytes (%) (Auto) 4.4 % Monocytes (%) (Auto) 11.7 % Eosinophils (%) (Auto) 0.5 % Basophils (%) (Auto) 0.1 % Neutrophils # (Auto) 12.53 K/uL Lymphocytes # (Auto) 0.67 K/uL Monocytes # (Auto) 1.77 K/uL Eosinophils # (Auto) 0.08 K/uL Basophils # (Auto) 0.01 K/uL RDW Standard Deviation 49.0 fL RDW Coefficient of Variation 15.8 % Immature Granulocyte % (Auto) 0.7 % Immature Granulocyte # (Auto) 0.11 K/uL Anisocytosis PRESENT Sodium Level 137 mmol/L Potassium Level 3.6 mmol/L Chloride Level 104 mmol/L Carbon Dioxide Level 21 mmol/L Anion Gap 12.0 mmol/L Blood Urea Nitrogen 49 mg/dl Creatinine 2.10 mg/dl Est Creatinine Clear Calc Drug Dose 36.7 ml/min Estimated GFR () 33.2 Estimated GFR (Non- 28.7 BUN/Creatinine Ratio 23.4 Random Glucose 165 mg/dl Calcium Level 8.5 mg/dl Total Bilirubin 1.4 mg/dl Aspartate Amino Transf (AST/SGOT) 50 U/L Alanine Aminotransferase (ALT/SGPT) 56 U/L Alkaline Phosphatase 497 U/L Total Protein 6.1 gm/dl Albumin 2.6 gm/dl Globulin 3.5 gm/dl Albumin/Globulin Ratio 0.7 Absolute Reticulocyte Count 0.18 10^6/uL Percent Reticulocyte Count 5.8 % Assessment and Plan 81-year-old male with past medical history of atrial fibrillation, coronary artery disease status post CABG, chronic dCHF, hypertension, COPD, hypothyroidism, DMII, elevated LFTs, sleep apnea, pulmonary hypertension, secondary hyperparathyroidism, stage III kidney disease, and recent admission for anemia requiring transfusion, presented to the ER with complaints of acute onset shortness of breath, cough, and fever. Evidence of suspected PNA with right pleural effusion, sepsis and now bacteremia in all sets of BCxs as well as UTI. Was hypotensive on arrival which responded to IVFs. Acute hypoxemic respiratory failure/ruled out HCAP/Sepsis/UTI/MRSA Bacteremia/ COPD-improving with abx and IVFs. PNA no longer suspected. Bacteremia could be from seeded bacteria on metal plate in his chest MRSA bacteremia; has h/o recent treatment for MRSA foot infection/OM. Urine growing E. coli - CXR: 1. Cardiomegaly and mild pulmonary vascular congestion. Small right pleural effusion. 2. 17 mm opacity visualized posterio-laterally on the lateral view. This may represent a summation. Short-term radiographic follow-up is recommended.--*repeat CXR in 1-2 days - received IV vancomycin, Zosyn, azithromycin and switched vanc to Dapto as per ID and based on cultures--> narrowed to Dapto alone today as ID does not suspect Pulm source -Plan for 6 weeks Dapto at home or MTU -finish out 4 more days of Cipro po for UTI -ID consultation appreciated - oxygen per protocol-weaned off - duonebs - guaifenesin Anemia: hgb at 8.4 on admission with slight drop after IVF resuscitation, had colonoscopy and EGD last week which found no source of bleeding. He was back on his coumadin since then Hgb at oh from recent admission 8.4 on 03/17/17 --> dropped to 7.6--> 8.8 today May be some from recent GI bleed and some from CKD Received 2 units of PRBC transfusion during last admission, 2 units this admission Colonoscopy on 03/15, multiple polyps, 6-8mm in size, no masses, no active bleeding EGD normal -checking transferrin sat and ferritin, hemolytic anemia labs -Hemoccult negative -restart coumadin cautiously here and follow CBC - capsule endoscopy was not done during last admission and plan was to transfuse as an OP if hgb dropped Atrial fibrillation, CAD s/p CABG, porcine AVR, chronic dCHF, Pulm HTN, Elevated troponin-peak trop 1.5, likely demand ischemia in setting of sepsis. Appreciate Cardiology consultation ECHO: * The diagnosis of endocarditis cannot be excluded on the basis of this study. The valves were not well visualized. * Normal overall left ventricular systolic function. * Mild concentric left ventricle hypertrophy. * Right ventricular volume/pressure overload. * Severe pulmonary hypertension. * Moderate biatrial dilatation. * Properly functioning bioprosthetic aortic valve. Appropriate gradient for a bioprosthetic valve. * Mild mitral, tricuspid, and pulmonic regurgitation. * Mild mitral stenosis. * Compared to an echocardiogram of January 04, 2017 there has been no significant interval change. * The study was technically difficult. - Rate controlled without AV keren blocking agent - Coumadin restarted, INR today 2.3 likely from coumadin received for a few days prior to admission -ok to transfer to medical floor -follow INR EVENS-use CPAP CARLO in setting of CKD stage III-IV: - Cr at 2.7 at peak, now improved 2.1, baseline 1.7, likely secondary to ATN from hypotension and sepsis - held lasix on admission -appreciate Nephrology consult in case of need for CLINIC OFFICE COORDINATOR DM T2:with hyperglycemia, HgbA1C 6.8% in 12/2016 ISS and added Levemir -started insulin gtt for persistent severe hyperglycemia--> improved -dc insulin gtt and start Levemir 30 units in AM and 10 units hs elevated alk phos: chronic, GGT elevated so likely from live source. US liver with possibly fatty liver Fall 2015. -follow hypothyroidism: - continue synthroid Urinary retention-placed Rucker, was having PVR 700-800 mL -Urology consult appreciated Full code Proph-coumadin SCDs Dispo: transfer to [facility]
[2017-03-22] MEDS: CIPROFLOXACIN 500 MG TAB PO SCH ×2 (12:13→20:33)
[2017-03-22 13:51] LABS: INR 1.8 (0.9-1.1); PROTHROMBIN TIME (PATIENT) 19.9 SECONDS (9.0-12.0)
[2017-03-22] MEDS: WARFARIN SOD 2.5 MG TAB PO SCH (16:40)
[2017-03-22] MEDS: DAPTOmycin IV 1,000 MG in SODIUM CHLORIDE 0.9% 50ML 50 ML IV SCH (20:33)
[2017-03-22] MEDS ORDERED: INSULIN DETEMIR FLEXPEN/FLEX TOUCH 100 UNITS/ML 3ML SC SCH (21:00)
[2017-03-22] MEDS ORDERED: SODIUM CHLORIDE 0.65% NA SOLN 45 ML (OCEAN) ONE (23:43)
[2017-03-22] MEDS ORDERED: SODIUM CHLORIDE 0.65% NA SOLN 45 ML (OCEAN) PRN (23:45)
[2017-03-23] MEDS: LEVOTHYROXINE 100 MCG TAB PO SCH (05:32)
[2017-03-23 07:17] VITALS: PULSE 81; O2SAT 96
[2017-03-23] MEDS: ALBUT/IPRATROP 3MG/0.5MG NEB 3 ML VIAL INH SCH ×4 (07:17→19:03)
[2017-03-23] MEDS: BUDESONIDE 0.5 MG/2 ML VIAL (PULMICORT) INH SCH ×2 (07:17→19:03)
[2017-03-23] MEDS: CIPROFLOXACIN 500 MG TAB PO SCH ×2 (07:40→19:35)
[2017-03-23] MEDS: TAMSULOSIN HCL 0.4 MG CAP PO SCH (07:41)
[2017-03-23] MEDS: SIMVASTATIN 20 MG TAB PO SCH (07:41)
[2017-03-23] MEDS: GUAIFENESIN 600 MG TABCR PO SCH ×2 (07:41→19:34)
[2017-03-23] MEDS: MICONAZOLE NITRATE POWDER 43 GM EXT SCH (07:42)
[2017-03-23 08:29] VITALS: BP 120/68; PULSE 70; TEMP 36.8; O2SAT 93
[2017-03-23 08:44] LABS: BASO % 0.2 %; BASO ABS # 0.03 K/uL (0-0.2); COMPLETE YES; EOS % 1.3 %; HEMATOCRIT 29.4 % (42-52); IG% 2.4 %; LYMPH % 6.5 %; LYMPH ABS # 0.79 K/uL (1.2-3.4); MEAN CELL VOLUME 86.7 fL (80-100); MEAN CORPUSCULAR HEMOGLOBIN 27.4 pg (25-34); MEAN CORPUSCULAR HGB CONC 31.6 g/dl (32-36); MEAN PLATELET VOLUME 9.4 fL (7.4-10.4); MONO % 12.3 %; NEUT % 77.3 %; PLATELET COUNT 363 K/uL (130-400); RED BLOOD COUNT 3.39 M/uL (4.7-6.1); WHITE BLOOD COUNT 12.24 K/uL (4.8-10.8)
[2017-03-23 08:50] LABS: INR 1.8 (0.9-1.1); PROTHROMBIN TIME (PATIENT) 20.3 SECONDS (9.0-12.0)
[2017-03-23 09:21] LABS: BUN/CREATININE RATIO 22.8 (10-20); CREATININE 1.9 mg/dl (0.60-1.40); MAGNESIUM 2.3 mg/dl (1.8-2.4)
[2017-03-23 09:27] LABS: FERRITIN 114.1 ng/ml (8.0-388.0)
[2017-03-23] MEDS: INSULIN ASPART 100 UNITS/ML 3 ML PEN SC SCH ×3 (09:34→16:30)
[2017-03-23 11:10] VITALS: PULSE 74; O2SAT 96
--- NOTE | 2017-03-23 12:35 | Nephrology Progress Note ---
Nephrology Progress Note Date of Service Mar 23, 2017. Chief Complaint CARLO/CKD, anemia Subjective No acute events overnight. Chad was seen and evaluated in his hospital room this morning. He was very eager to be discharged. He feels well. Activity tolerance acceptable. He did note that he hoped that he could get a wheelchair to use at home. His appetite is good. He denies any fevers or chills. He denies shortness of breath. Lower extremity edema is increasing. Review of Systems A complete review of systems was performed. Pertinent positives are noted above. All other systems are negative. Vital Signs Last 8 Hrs Date Time Temp Pulse Resp B/P (MAP) Pulse Ox O2 Delivery O2 Flow Rate FiO2 03/23/17 11:10 74 18 96 Room Air 03/23/17 08:29 36.8 70 20 120/68 (85) 93 Room Air 03/23/17 08:00 Room Air 03/23/17 07:17 81 18 96 Room Air Last Recorded Weight Weight (Kilograms): 129.000 Physical Exam General Appearance: no apparent distress, + obese Head: normocephalic, atraumatic Eyes: normal inspection, sclerae normal ENT: normal ENT inspection, pharynx normal Neck: supple, no JVD Respiratory/Chest: no respiratory distress, no accessory muscle use, + rales ( few at the bases) Cardiovascular: regular rate, rhythm, no gallop Abdomen/GI: non tender, soft Extremities/Musculoskelatal: normal inspection, + pedal edema Neurologic/Psych: alert, oriented x 3 Family History FH: diabetes mellitus FH: hypertension Social History Marital Status: Occupation: retired Laboratory Results Past 24 Hours 03/23/17 07:46 Red Blood Count 3.39, Mean Corpuscular Volume 86.7, Mean Corpuscular Hemoglobin 27.4, Mean Corpuscular Hemoglobin Concent 31.6, Mean Platelet Volume 9.4, Neutrophils (%) (Auto) 77.3, Lymphocytes (%) (Auto) 6.5, Monocytes (%) (Auto) 12.3, Eosinophils (%) (Auto) 1.3, Basophils (%) (Auto) 0.2, Neutrophils # (Auto ) 9.46, Lymphocytes # (Auto) 0.79, Monocytes # (Auto) 1.51, Eosinophils # (Auto ) 0.16, Basophils # (Auto) 0.03 7/7/17 07:46 Test 03/22/17 13:24 03/22/17 17:02 03/22/17 20:27 03/23/17 07:46 Prothrombin Time 19.9 SECONDS (9.0-12.0) 20.3 SECONDS (9.0-12.0) Prothromb Time International Ratio 1.8 (0.9-1.1) 1.8 (0.9-1.1) Bedside Glucose 288 mg/dl (70-99) 252 mg/dl (70-99) White Blood Count 12.24 K/uL (4.8-10.8) Red Blood Count 3.39 M/uL (4.7-6.1) Hemoglobin 9.3 g/dL (14.0-18.0) Hematocrit 29.4 % (42-52) Mean Corpuscular Volume 86.7 fL (80-100) Mean Corpuscular Hemoglobin 27.4 pg (25-34) Mean Corpuscular Hemoglobin Concent 31.6 g/dl (32-36) Platelet Count 363 K/uL (130-400) Mean Platelet Volume 9.4 fL (7.4-10.4) Neutrophils (%) (Auto) 77.3 % Lymphocytes (%) (Auto) 6.5 % Monocytes (%) (Auto) 12.3 % Eosinophils (%) (Auto) 1.3 % Basophils (%) (Auto) 0.2 % Neutrophils # (Auto) 9.46 K/uL (1.4-6.5) Lymphocytes # (Auto) 0.79 K/uL (1.2-3.4) Monocytes # (Auto) 1.51 K/uL (0.11-0.59) Eosinophils # (Auto) 0.16 K/uL (0-0.5) Basophils # (Auto) 0.03 K/uL (0-0.2) RDW Standard Deviation 50.3 fL (36.4-46.3) RDW Coefficient of Variation 15.9 % (11.5-14.5) Immature Granulocyte % (Auto) 2.4 % Immature Granulocyte # (Auto) 0.29 K/uL (0.00-0.02) Nucleated RBC Absolute Count (auto) 0.02 K/uL (0-0) Nucleated Red Blood Cells % 0.2 % Anion Gap 11.0 mmol/L (3-11) Est Creatinine Clear Calc Drug Dose 40.6 ml/min Estimated GFR () 37.5 Estimated GFR (Non- 32.3 BUN/Creatinine Ratio 22.8 (10-20) Calcium Level 9.0 mg/dl (8.5-10.1) Magnesium Level 2.3 mg/dl (1.8-2.4) Iron Level 39 mcg/dl (35-175) Total Iron Binding Capacity 309 mcg/dl (250-450) Transferrin 232 mg/dl (200-360) Transferrin % Saturation 12 % (20-50) Ferritin 114.1 ng/ml (8.0-388.0) Test 03/23/17 07:55 Bedside Glucose 130 mg/dl (70-99) Allergies Coded Allergies: Chlorpheniramine (Unverified Allergy, Unknown, ., 03/19/17) Phenylpropanolamine (Unverified Allergy, Unknown, ., 03/19/17) Medications Current Inpatient Medications Medications (Trade) Dose Ordered Sig/Sukhwinder Route Start Time Stop Time Status Last Admin Dose Admin Acetaminophen (Tylenol Tab) 650 mg Q4H PRN PO 03/19/17 06:30 04/18/17 06:29 03/22/17 20:43 650 MG Ondansetron HCl (Zofran Inj) 4 mg Q6H PRN IV 03/19/17 06:30 04/18/17 06:29 Nitroglycerin (Nitrostat Tab) 0.4 mg UD PRN SL 03/19/17 06:30 04/18/17 06:29 Morphine Sulfate (MoRPHine SULFATE INJ) 2 mg Q30M PRN IV 03/19/17 06:30 04/02/17 06:29 Polyethylene (Miralax Powder Packet) 17 gm DAILY PRN PO 03/19/17 06:30 04/18/17 06:29 Levothyroxine Sodium (Synthroid Tab) 100 mcg DAILYBB PO 03/19/17 09:00 04/18/17 08:59 03/23/17 05:32 100 MCG Miconazole Nitrate (Desenex Powder) 1 appln DAILY EXT 03/19/17 09:00 04/18/17 08:59 03/23/17 07:42 1 APPLN Simvastatin (Zocor Tab) 20 mg DAILY PO 03/19/17 09:00 04/18/17 08:59 03/23/17 07:41 20 MG Tamsulosin HCl (Flomax Cap) 0.4 mg DAILY PO 03/19/17 09:00 04/18/17 08:59 03/23/17 07:41 0.4 MG Albuterol/ Ipratropium (Duoneb) 3 ml QIDR INH 03/19/17 08:00 04/18/17 07:59 03/23/17 11:07 3 ML Guaifenesin (Mucinex Contr Rel Tab) 600 mg Q12 PO 03/19/17 09:00 04/18/17 08:59 03/23/17 07:41 600 MG Budesonide (Pulmicort Respules 0.5MG/ 2ML Neb Soln) 1 mg BIDR INH 03/21/17 20:00 04/20/17 19:59 03/23/17 07:17 1 MG Glucose (Glucose 40% Gel) 15-30 GRAMS 15 GRAMS... UD PRN PO 03/21/17 17:30 04/20/17 17:29 Glucose (Glucose Chew Tab) 4-8 Tablets 4 Tabl... UD PRN PO 03/21/17 17:30 04/20/17 17:29 Dextrose (Dextrose 50% 50ML Syringe) 25-50ML OF 50% DW IV FOR... UD PRN IV 03/21/17 17:30 04/20/17 17:29 Glucagon (Glucagon Inj) 1 mg UD PRN SQ 03/21/17 17:30 04/20/17 17:29 Insulin Aspart (novoLOG ASPART) SLIDING SCALE ACHS SC 03/22/17 11:00 04/21/17 10:59 03/23/17 09:34 4 UNITS Warfarin Sodium (Coumadin Tab) 2.5 mg DAILY@16 PO 03/22/17 16:00 04/21/17 15:59 03/22/17 16:40 2.5 MG Ciprofloxacin (Cipro Tab) 500 mg BID PO 03/22/17 11:30 03/26/17 11:29 03/23/17 07:40 500 MG Insulin Detemir (Levemir Flexpen/ FlexTouch) 10 units HS SC 03/22/17 21:00 04/21/17 20:59 03/22/17 20:40 10 UNITS Sodium Chloride ([place] Nasal Michael) 1 sprays PRN PRN NA 03/22/17 23:45 04/21/17 23:44 Daptomycin 1000 mg/Sodium Chloride 70 ml @ 100 mls/hr DAILY@2000 IV 03/23/17 20:00 04/06/17 19:59 Impression (1) Acute kidney injury (2) Hyponatremia (3) Hypotension (4) Pneumonia (5) Anemia (6) Chronic kidney disease (7) CHF (congestive heart failure) (8) Metabolic acidosis Mr. Avery is an 81-year-old male with chronic kidney disease III (baseline creatinine ~1.8 ) , CHF with right-sided heart failure and pulmonary hypertension, porcine valve, COPD, osteomyelitis and recurrent hospitalizations. He has E coli UTI and recurrent MRSA bacteremia complicated by acute kidney injury. Medical history also notable for significant persistent anemia. Anemia is likely multifactorial in nature. He has been started on EPO yesterday. Recommendations CARLO: -- Maintain even to slightly negative -- Suggest furosemide 20 mg daily on discharge -- Medications appropriately dosed for renal function -- Document I/O's and repeat metabolic profile tomorrow AM -- I will arrange follow up in the nephrology clinic in 2 weeks of discharge as well as labs within 1 week of discharge Anemia: -- 2 u PRBC 03/21/17 -- Hemolysis labs pending -- EPO 51917 units SQ given yesterday, I will arrange follow up dosing in the nephrology clinic in 2 weeks -- Repeat H/H within 1 week of discharge MRSA bacteremia/osteomyelitis: -- Plan for daily daptomycin at discharge -- ID/cardiology consults reviewed -- Repeat blood culture NGTD -- PICC to be placed today
[2017-03-23] MEDS ORDERED: DAPT500I IV (13:10)
[2017-03-23] MEDS ORDERED: FRS/40 PO (13:51)
[2017-03-23] MEDS ORDERED: BUDE1SUS INH (13:51)
[2017-03-23] MEDS ORDERED: CPR500 PO (13:51)
[2017-03-23 13:58] VITALS: BP 120/68; TEMP 36.8; O2SAT 96
--- NOTE | 2017-03-23 13:59 | Discharge Instructions ---
Discharge Instructions Date of Service Mar 23, 2017. Admission Reason for Admission: Sepsis Discharge Discharge Diagnosis / Problem: Sepsis, MRSA Bacteremia Discharge Goals Goal(s): Improve disease control, Diagnostic testing, Therapeutic intervention Activity Recommendations Activity Limitations: resume your previous activity Exercise/Sports Limitations: gradually increase as tolerated Shower/Bathe: keep incision dry (keep PICC line dry) Driving or Machine Use: no limitations . Instructions / Follow-Up Instructions / Follow-Up You were admitted with due to shortness of breath and fever--> you were found to have sepsis and found to have MRSA bacteria growing in your bloodstream. You will need to take IV Daptomycin for 6 weeks and have weekly blood work drawn by the home RN. You also had urinary retention requiring placement of a Mckeon catheter. Please follow up with Urology as scheduled in 1 week. You did have some fluid on the lungs and should have a repeat Chest xray ordered by your PCP at the time of follow up to make sure this is improved. Your kidney function was worse when you were admitted. It did improve back to your baseline and you will need to follow up with Dr. Dan in 1-2 weeks. Please check your INR in 1 day at home and continue on your coumadin. You need to keep your scheduled appointment with GI to see if you need a capsule endoscopy study to look for a course of bleeding in your intestines. Please follow up also with your PCP within 1-2 weeks. You will need a once weekly CBC, CMP, CPK, ESR, CRP, starting on Sunday03/26/17. Current Hospital Diet Patient's current hospital diet: Diabetes Type 2 Diet, Low Potassium Diet (2g K) Discharge Diet Recommended Diet: Diabetes Type 2 Diet, Low Potassium Diet (2g K) Procedures Procedures Performed: PICC line placement Chest xray Pending Studies Studies pending at discharge: yes List of pending studies: Final repeat Blood culture Laboratory Results Last 24 Hours Test 03/22/17 17:02 03/22/17 20:27 03/23/17 07:46 03/23/17 07:55 Bedside Glucose 288 mg/dl 252 mg/dl 130 mg/dl White Blood Count 12.24 K/uL Red Blood Count 3.39 M/uL Hemoglobin 9.3 g/dL Hematocrit 29.4 % Mean Corpuscular Volume 86.7 fL Mean Corpuscular Hemoglobin 27.4 pg Mean Corpuscular Hemoglobin Concent 31.6 g/dl Platelet Count 363 K/uL Mean Platelet Volume 9.4 fL Neutrophils (%) (Auto) 77.3 % Lymphocytes (%) (Auto) 6.5 % Monocytes (%) (Auto) 12.3 % Eosinophils (%) (Auto) 1.3 % Basophils (%) (Auto) 0.2 % Neutrophils # (Auto) 9.46 K/uL Lymphocytes # (Auto) 0.79 K/uL Monocytes # (Auto) 1.51 K/uL Eosinophils # (Auto) 0.16 K/uL Basophils # (Auto) 0.03 K/uL RDW Standard Deviation 50.3 fL RDW Coefficient of Variation 15.9 % Immature Granulocyte % (Auto) 2.4 % Immature Granulocyte # (Auto) 0.29 K/uL Nucleated RBC Absolute Count (auto) 0.02 K/uL Nucleated Red Blood Cells % 0.2 % Prothrombin Time 20.3 SECONDS Prothromb Time International Ratio 1.8 Sodium Level 138 mmol/L Potassium Level 4.0 mmol/L Chloride Level 105 mmol/L Carbon Dioxide Level 22 mmol/L Anion Gap 11.0 mmol/L Blood Urea Nitrogen 43 mg/dl Creatinine 1.90 mg/dl Est Creatinine Clear Calc Drug Dose 40.6 ml/min Estimated GFR () 37.5 Estimated GFR (Non- 32.3 BUN/Creatinine Ratio 22.8 Random Glucose 110 mg/dl Calcium Level 9.0 mg/dl Magnesium Level 2.3 mg/dl Iron Level 39 mcg/dl Total Iron Binding Capacity 309 mcg/dl Transferrin 232 mg/dl Transferrin % Saturation 12 % Ferritin 114.1 ng/ml Hemoglobin A1c Test 01/03/17 05:12 Range/Units Estimated Average Glucose 148 mg/dl Hemoglobin A1c 6.8 H 4.5-5.6 % Medical Emergencies . Who to Call and When: Medical Emergencies: If at any time you feel your situation is an emergency, please call 911 immediately. . Non-Emergent Contact Non-Emergency issues call your: Primary Care Provider, Food Counter Worker, Urologist Call Non-Emergent contact if: you have a fever, you have any medication questions you have worsening shortness of breath, a problem with your PICC line, arm swelling, chest pain, or for any other acute concerns. . . "Provider Documentation" section prepared by Janneth Gold. . VTE Core Measure Inpt VTE Proph given/why not?: Warfarin (Coumadin), SCD's
--- NOTE | 2017-03-23 14:04 | DIAGNOSTIC IMAGING REPORT ---
CHEST ONE VIEW PORTABLE CLINICAL HISTORY: Left PICC line placement. COMPARISON STUDY: 03/19/2017 FINDINGS: The heart is enlarged. Postsurgical changes are again evident involving the anterior chest wall. There are trace bilateral pleural effusions. There is mild pulmonary vascular congestion. There is no lobar consolidation. There is been interval insertion of a left-sided PICC catheter. The catheter tip appears to be positioned within the left innominate vein in the midline.[ IMPRESSION: Interval insertion of a left-sided PICC catheter. The catheter tip appears to be positioned within the left innominate vein in the midline. Electronically signed by: Chris Odonnell M.D. 03/23/2017 2:03 PM Dictated Date/Time: 03/23/2017 1:55 PM
[2017-03-23] MEDS ORDERED: DAPTOmycin IV 1,000 MG in SODIUM CHLORIDE 0.9% 50ML 50 ML IV ONE (14:15)
[2017-03-23] MEDS ORDERED: NURSING VERBAL MED ORDER ONE (14:15)
--- NOTE | 2017-03-23 15:23 | DIAGNOSTIC IMAGING REPORT ---
CHEST ONE VIEW PORTABLE CLINICAL HISTORY: Chest x-ray for PICC catheter placement. COMPARISON STUDY: Earlier in the day FINDINGS: There is been no significant change the position left-sided PICC catheter. The catheter tip remains projected over the midline. It likely lies within the left innominate vein. The heart remains enlarged. There are postsurgical changes involve the anterior chest wall. There is mild pulmonary vascular congestion. There is no lobar consolidation.[ IMPRESSION: No change in the position of the left-sided PICC catheter. The catheter tip appears to terminate within the left innominate vein near the midline Electronically signed by: Chris Odonnell M.D. 03/23/2017 3:22 PM Dictated Date/Time: 03/23/2017 3:21 PM
[2017-03-23 15:29] VITALS: PULSE 72; O2SAT 95
[2017-03-23] MEDS: WARFARIN SOD 2.5 MG TAB PO SCH (16:41)
--- NOTE | 2017-03-23 17:21 | DIAGNOSTIC IMAGING REPORT ---
CHEST ONE VIEW PORTABLE CLINICAL HISTORY: PICC catheter placement COMPARISON STUDY: 03/23/2017 FINDINGS: The heart remains enlarged. There is mild pulmonary vascular congestion. There are postsurgical changes involving the anterior chest wall. The left-sided PICC catheter has been advanced slightly, and now terminates at the level of the brachiocephalic vein confluence. IMPRESSION: Slight interval advancement of the left-sided PICC catheter which now appears to terminate near the level of the brachiocephalic vein confluence Electronically signed by: Chris Odonnell M.D. 03/23/2017 5:19 PM Dictated Date/Time: 03/23/2017 5:18 PM
--- NOTE | 2017-03-23 18:22 | DIAGNOSTIC IMAGING REPORT ---
CHEST ONE VIEW PORTABLE CLINICAL HISTORY: picc placement COMPARISON STUDY: Earlier in the day FINDINGS: The left-sided PICC catheter is positioned with its tip within the superior vena cava at the brachiocephalic vein confluence. The heart is enlarged. There is mild pulmonary vascular congestion. There are postsurgical changes involving the anterior chest wall.[ IMPRESSION: The left-sided PICC catheter projects over the superior vena cava at the brachiocephalic vein confluence Electronically signed by: Chris Odonnell M.D. 03/23/2017 6:20 PM Dictated Date/Time: 03/23/2017 6:19 PM
[2017-03-23 19:03] VITALS: PULSE 61; O2SAT 96
[2017-03-23] MEDS ORDERED: DAPTOmycin IV 1,000 MG in SODIUM CHLORIDE 0.9% 50ML 50 ML IV SCH (20:00)
--- NOTE | 2017-03-24 00:40 | Discharge Summary ---
Discharge Summary Date of Service Mar 23, 2017. 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 CARLO in setting of CKD stage III-IV Urinary retention Procedures: Chest xrays ECHO: * The diagnosis of endocarditis cannot be excluded on the basis of this study. The valves were not well visualized. * Normal overall left ventricular systolic function. * Mild concentric left ventricle hypertrophy. * Right ventricular volume/pressure overload. * Severe pulmonary hypertension. * Moderate biatrial dilatation. * Properly functioning bioprosthetic aortic valve. Appropriate gradient for a bioprosthetic valve. * Mild mitral, tricuspid, and pulmonic regurgitation. * Mild mitral stenosis. * Compared to an echocardiogram of January 04, 2017 there has been no significant interval change. * The study was technically difficult. * -- Conclusions -- * The study was technically difficult. Consultations: Nephrology Infectious Disease Podiatry Medication Reconciliation New Medications: Daptomycin (Daptomycin) 500 Mg Inj 1000 MG IV DAILY for 38 Days, #38 EA Ciprofloxacin (Ciprofloxacin HCl) 500 Mg Tab 500 MG PO BID for 4 Days, #8 TAB Changed Medications: Budesonide (Inhalation) (Pulmicort) 1 Mg/2 Ml Milagros 1 DOSE INH BID for 30 Days (Changed from: UD; Removed Reason) Furosemide (Lasix) 40 Mg Tab 20 MG PO QAM for 30 Days, TAB (Changed from: 40 MG; BID) Continued Medications: Albuterol Hfa (Ventolin Hfa) 200 Puffs/47355 Mcg Aers 1-2 PUFFS INH Q6H PRN for SOB/Wheezing, #1 INHALER Ergocalciferol (Vitamin D 40554 Unit) 50,000 Unit Cap 1 CAP PO WK for 28 Days, #4 CAP 5 Refills Home O2 Therapy (Oxygen) Gas 1.5 LITER NA HS PRN for Shortness of Breath Insulin Isophan/Regular (Humulin 70/30) Susp 20 UNITS SC BID, VIAL Ipratropium-Albuterol (Duoneb) 3 Ml Nebu 1 TREATMENT INH Q4H PRN for Shortness of Breath, INHA Levothyroxine Sodium (Levothyroxine Sodium) 100 Mcg Tab 100 MCG PO DAILY Miconazole Nitrate (Desenex Shake Powder) 43 Appln/43 Gm Powd 1 APPLN EXT DAILY, #1 BTL 3 Refills Simvastatin (Zocor) 20 Mg Tab 20 MG PO DAILY, TAB Tamsulosin Hcl (Flomax) 0.4 Mg Cap 0.4 MG PO DAILY, CAP Warfarin Sod (Coumadin) 5 Mg Tab 1 TAB PO [id number]-- Warfarin Sod (Coumadin) 2.5 Mg Tab 1 TAB PO -sun Referrals At Discharge Follow up Referrals: Corporate Account Executive Referral - Within 1-2 Weeks with Robert Dan D.O. Physician Referral - Within 1-2 Weeks with Winston Harper M.D. Urologist Referral - Within 1 Week with Rolo Gill MD, Urology Discharge Exam Feeling well on day of dc. No concerns, anxious for discharge. Physical Exam General Appearance: no apparent distress, + obese Eyes: normal inspection, sclerae normal ENT: hearing grossly normal Neck: trachea midline Respiratory/Chest: lungs clear, normal breath sounds, no respiratory distress, no accessory muscle use Cardiovascular: no gallop, no murmur, + irregularly irregular, + pertinent finding (trace pitting edema legs bilat) Abdomen: normal bowel sounds, non tender, soft Extremities: no calf tenderness Neurologic/Psychiatric: alert, normal mood/affect, oriented x 3 Skin: normal color, warm/dry, no rash Review of Systems: Constitutional: No fever Eyes: No problem reported Respiratory: + cough, No shortness of breath Cardiovascular: No chest pain Abdomen: No pain Musculoskeletal: No problem reported Genitourinary - Male: + urinary retention Neurologic: No problem reported Psychiatric: No problem reported Hematologic / Lymphatic: No problem reported Integumentary: No problem reported Hospital Course 81-year-old male with past medical history of atrial fibrillation, coronary artery disease status post CABG, chronic dCHF, hypertension, COPD, hypothyroidism, DMII, elevated LFTs, sleep apnea, pulmonary hypertension, secondary hyperparathyroidism, stage III kidney disease, and recent admission for anemia requiring transfusion, presented to the ER with complaints of acute onset shortness of breath, cough, and fever. Evidence of suspected PNA with right pleural effusion, sepsis and now bacteremia in all sets of BCxs as well as UTI. Was hypotensive on arrival which responded to IVFs. Acute hypoxemic respiratory failure/ruled out HCAP/Sepsis/UTI/MRSA Bacteremia/ COPD-improving with abx and IVFs. PNA no longer suspected. Bacteremia could be from seeded bacteria on metal plate in his chest from previous OM MRSA bacteremia; has h/o recent treatment for MRSA foot infection/OM. Urine growing E. coli - CXR: 1. Cardiomegaly and mild pulmonary vascular congestion. Small right pleural effusion. 2. 17 mm opacity visualized posterio-laterally on the lateral view. This may represent a summation. Short-term radiographic follow-up is recommended.--*repeat CXR in 1-2 weeks as outpatient - received IV vancomycin, Zosyn, azithromycin and switched vanc to Dapto as per ID and based on cultures--> narrowed to Dapto alone as ID does not suspect Pulm source -Plan for 6 weeks Dapto at home -weekly CBC, CMP, ESR, CRP, CPK while on Dapto -finish out 4 more days of Cipro po for UTI -ID consultation appreciated - oxygen per protocol-weaned off - duonebs Anemia-normocytic: Multifactorial from previous GI blood loss plus Anemia of chronic disease: hgb at 8.4 on admission with slight drop after IVF resuscitation, had colonoscopy and EGD last week which found no source of bleeding. He was back on his coumadin since then Hgb at md from recent admission 8.4 on 03/17/17 --> dropped to 7.6--> 9.3 on day of discharge Received 2 units of PRBC transfusion during last admission, 2 units this admission Colonoscopy on 03/15, multiple polyps, 6-8mm in size, no masses, no active bleeding EGD normal Transferrin sat low at 12%, retic count elevated, haptoglobin actually high -Hemoccult negative -restarted coumadin cautiously here and follow CBC, INR - capsule endoscopy planned as out-f/u with GI Atrial fibrillation, CAD s/p CABG, porcine AVR, chronic dCHF, Pulm HTN, Elevated troponin-peak trop 1.5, likely demand ischemia in setting of sepsis. Appreciate Cardiology consultation ECHO: * The diagnosis of endocarditis cannot be excluded on the basis of this study. The valves were not well visualized. * Normal overall left ventricular systolic function. * Mild concentric left ventricle hypertrophy. * Right ventricular volume/pressure overload. * Severe pulmonary hypertension. * Moderate biatrial dilatation. * Properly functioning bioprosthetic aortic valve. Appropriate gradient for a bioprosthetic valve. * Mild mitral, tricuspid, and pulmonic regurgitation. * Mild mitral stenosis. * Compared to an echocardiogram of January 04, 2017 there has been no significant interval change. * The study was technically difficult. - Rate controlled without AV keren blocking agent - Coumadin restarted, INR today 2.3 likely from coumadin received for a few days prior to admission -ok to transfer to medical floor -follow INR EVENS-use CPAP CARLO in setting of CKD stage III-IV: - Cr at 2.7 at peak, now improved to 1.9 on discharge with baseline 1.7, likely secondary to ATN from hypotension and sepsis - held lasix on admission, now restart at lower dose lasix 20mg daily -appreciate Nephrology consult in case of need for FORESTRY PATROLMAN -f/u Nephro in 1-2 weeks with labs in 1 week DM T2:with hyperglycemia, HgbA1C 6.8% in 12/2016 ISS and added Levemir -started insulin gtt for persistent severe hyperglycemia--> improved -dc insulin gtt and start Levemir 30 units in AM and 10 units hs while inpt -restart home 70/30 insulin bid on discharge elevated alk phos: chronic, GGT elevated so likely from live source. US liver with possibly fatty liver Fall 2015. -follow hypothyroidism: - continue synthroid Urinary retention-placed Roman, was having PVR 700-800 mL -Urology consult appreciated--> home with leg bag and f/u for voiding trial in office in 1 week Full code Proph-coumadin SCDs Dispo: to home Total Time Spent: Greater than 30 minutes This includes examination of the patient, discharge planning, medication reconciliation, and communication with other providers. Discharge Instructions Please refer to the electronic Patient Visit Report (Discharge Instructions) for additional information. Follow-Up PCP within 1 week Nephrology within 1-2 weeks Urology in 1 week GI in 1 week Check weekly CBC, CRP,ESR, CPK, CMP while on IV antibiotics Additional Copies To Winston Harper M.D.; Robert Dan D.O.
[2017-04-01] MEDS ORDERED: VNTHFA/IN INH (04:38)
[2017-04-01] MEDS ORDERED: OXGN (08:25)
[2017-04-01] MEDS ORDERED: SIMV20TA2 PO (08:25)
[2017-04-01] MEDS ORDERED: TAMS0.4C38 PO (08:25)
[2017-04-01] MEDS ORDERED: IPRASOL4 INH (08:25)
[2017-04-01] MEDS ORDERED: LEVO100T7 PO (08:25)
[2017-04-01] MEDS ORDERED: ERGO500037 PO (08:43)
[2017-04-01] MEDS ORDERED: CMD5 PO ×2 (08:43→16:13)
[2017-05-30] MEDS ORDERED: FERR1TAB23 (11:27)
[2017-06-21] MEDS ORDERED: HUMALOG MIX SQ (13:55)
== END 2017-03-23 20:00 | disposition home health service (06) | DRG 871 ==
LOC: EDBD 04:20 → C.EDA 04:21 → C.2T 06:39 → ENRESERV 06:53 → C.MS4W 03-22 13:07
PROVIDERS: ADMIT Family Medicine; ATTEND Family Medicine
PROC: 02HV33Z Insertion of Infusion Device into Superior Vena Cava, Percutaneous Approach (ICD-10-PCS; principal; 2017-03-23)
DX: A41.02 Sepsis due to Methicillin resistant Staphylococcus aureus (principal); J18.9 Pneumonia, unspecified organism; E87.2 Acidosis; N18.4 Chronic kidney disease, stage 4 (severe); I50.32 Chronic diastolic (congestive) heart failure; I13.0 Hypertensive heart and chronic kidney disease with heart failure and stage 1 through stage 4 chronic kidney disease, or unspecified chronic kidney disease; N39.0 Urinary tract infection, site not specified; N17.9 Acute kidney failure, unspecified; E87.1 Hypo-osmolality and hyponatremia; J96.01 Acute respiratory failure with hypoxia; M86.8X7 Other osteomyelitis, ankle and foot; I48.2 Chronic atrial fibrillation; I25.10 Atherosclerotic heart disease of native coronary artery without angina pectoris; E11.9 Type 2 diabetes mellitus without complications; E78.5 Hyperlipidemia, unspecified; E11.40 Type 2 diabetes mellitus with diabetic neuropathy, unspecified; Z95.1 Presence of aortocoronary bypass graft; D64.9 Anemia, unspecified; J44.9 Chronic obstructive pulmonary disease, unspecified; E03.9 Hypothyroidism, unspecified; I27.2 Other secondary pulmonary hypertension; E21.3 Hyperparathyroidism, unspecified; R33.9 Retention of urine, unspecified; R65.20 Severe sepsis without septic shock; Z95.2 Presence of prosthetic heart valve; I47.9 Paroxysmal tachycardia, unspecified; E11.65 Type 2 diabetes mellitus with hyperglycemia; Z79.01 Long term (current) use of anticoagulants; B96.20 Unspecified Escherichia coli [E. coli] as the cause of diseases classified elsewhere; G47.33 Obstructive sleep apnea (adult) (pediatric)

== ENCOUNTER → 2017-03-29 | Outpatient (CLI) | payer OTHER ==
[~2017-03-29] MED LIST changes: +BUDE1SUS NEB; +CMD5 PO; +CPR500 PO; +DAPT500I IV; +ERGO500037 PO; +FURO-85 PO; +HMLI7525 SC; +HYDR-4079 PO; +IPRASOL4 INH; +LEVO100T7 PO; +MCTP/85 EXT; +OXGN; +SIMV20TA2 PO; +TAMS0.4C38 PO; +VNTHFA/IN INH; -ventolin hfa INH
[2017-03-29 15:04] LABS: BLOOD UREA NITROGEN 34 mg/dl (7-18); CALCIUM 8.8 mg/dl (8.5-10.1); CARBON DIOXIDE 24 mmol/L (21-32); CHLORIDE 111 mmol/L (98-107); GLUCOSE 138 mg/dl (70-99); POTASSIUM 4.3 mmol/L (3.5-5.1); SODIUM 142 mmol/L (136-145)
[2017-03-29 15:09] LABS: ESTIMATED AVERAGE GLUCOSE 154 mg/dl; HA1C FLAG Normal (Normal)
== END | disposition home or self-care (01) ==
LOC: C.LABBC 10:30
PROVIDERS: ATTEND Internal Medicine
DX: R33.9 Retention of urine, unspecified (principal); I10 Essential (primary) hypertension; Z59.9 Problem related to housing and economic circumstances, unspecified; Z60.9 Problem related to social environment, unspecified

== ENCOUNTER → 2017-03-30 | Outpatient (CLI) | payer OTHER ==
[~2017-03-30] MED LIST changes: +CEFD1CAP14 PO; +CIPR1TAB10 PO; +CIPR1TAB11 PO; +CPR/500 PO; +FERR1TAB23; +HUMALOG MIX SQ; +PROBCAP PO
[2017-03-30 13:17] LABS: MEAN CELL VOLUME 88.9 fL (80-100); MEAN CORPUSCULAR HEMOGLOBIN 27.5 pg (25-34); MEAN CORPUSCULAR HGB CONC 30.9 g/dl (32-36); MEAN PLATELET VOLUME 8.4 fL (7.4-10.4); PLATELET COUNT 366 K/uL (130-400); WHITE BLOOD COUNT 6.74 K/uL (4.8-10.8)
[2017-03-30 13:27] LABS: BLOOD UREA NITROGEN 33 mg/dl (7-18); BUN/CREATININE RATIO 20.6 (10-20); CALCIUM 8.6 mg/dl (8.5-10.1); CARBON DIOXIDE 22 mmol/L (21-32); CHLORIDE 111 mmol/L (98-107); GLUCOSE 124 mg/dl (70-99); POTASSIUM 4.4 mmol/L (3.5-5.1); SODIUM 143 mmol/L (136-145)
== END | disposition home or self-care (01) ==
LOC: C.LABSPEC 11:05
PROVIDERS: ATTEND Internal Medicine Infectious Disease
DX: M86.9 Osteomyelitis, unspecified (principal); B95.62 Methicillin resistant Staphylococcus aureus infection as the cause of diseases classified elsewhere

== ENCOUNTER 2017-04-01 15:21 | Emergency (ER) | payer OTHER ==
[~2017-04-01 15:21] MED LIST changes: -BUDE1SUS NEB; -CEFD1CAP14 PO; -CIPR1TAB10 PO; -CIPR1TAB11 PO; -CPR/500 PO; -FERR1TAB23; -FURO-85 PO; -HMLI7525 SC; -HUMALOG MIX SQ; -HYDR-4079 PO; -MCTP/85 EXT; -PROBCAP PO
[2017-04-01 15:25] VITALS: TEMP 36.3
--- NOTE | 2017-04-01 15:41 | EMERGENCY ROOM VISIT NOTE ---
ED Visit Note First contact with patient: 15:31 I did evaluate and examine this patient myself. I did guide management for the patient. I agree with the APC's assessment as discussed. Please see the APC's dictation for further details. I did independently review the x-rays. We did have the IV team check the PICC line.
[2017-04-01] MEDS ORDERED: FURO-85 PO (16:13)
[2017-04-01] MEDS ORDERED: HMLI7525 SC (16:13)
[2017-04-01] MEDS ORDERED: MCTP/85 EXT (16:13)
[2017-04-01] MEDS ORDERED: HYDR-4079 PO (16:13)
[2017-04-01] MEDS ORDERED: CMD5 PO (16:13)
[2017-04-01] MEDS ORDERED: DAPT500I IV (16:13)
[2017-04-01] MEDS ORDERED: BUDE1SUS NEB (16:13)
--- NOTE | 2017-04-01 16:39 | DIAGNOSTIC IMAGING REPORT ---
CHEST ONE VIEW PORTABLE CLINICAL HISTORY: verify PICC placement line position COMPARISON STUDY: 03/23/2017 FINDINGS: PICC catheter in superior vena cava. No evidence pneumothorax. Heart remains enlarged. Components of congestive failure persist. IMPRESSION: PICC catheter in good position within the superior vena cava. Unchanging components of congestive failure The above report was generated using voice recognition software. It may contain grammatical, syntax or spelling errors. Electronically signed by: Tian Machado M.D. 04/01/2017 4:38 PM Dictated Date/Time: 04/01/2017 4:37 PM
--- NOTE | 2017-04-01 16:48 | EMERGENCY ROOM VISIT NOTE ---
ED Visit Note First contact with patient: 15:31 CHIEF COMPLAINT: blood in PICC line HISTORY OF PRESENT ILLNESS: This 81-year-old male patient presents to the emergency department complaining of blood in his PICC line. The patient had the PICC line placed on March 23 in order to receive infusions of daptomycin due to MRSA infection. The patient states he initially noticed the blood in the PICC line and bandage when he was showering this morning. The patient states his performed an infusion of daptomycin this morning, and during and after the infusion, they noticed blood in the PICC line. The patient states the blood did began coming out after the infusion and during the flush. The patient did feel that the medication was successfully administered during the infusion. The patient's home health care nurse came by, and suggested the patient be seen in the emergency department to have an x-ray completed to verify PICC line placement. The patient denies other concerns or complaints including pain, dizziness, dyspnea, chest pain, nausea, vomiting, fatigue, lethargy, or other associated symptoms. REVIEW OF SYSTEMS: A 6-system review of systems was performed with positives and pertinent negatives listed in the history of present illness. All other systems were reviewed and are negative. ALLERGIES: Chlorpheniramine, Phenylpropanolamine MEDICATIONS: Miconazole, daptomycin, furosemide, budesonide, ciprofloxacin, levothyroxine, simvastatin, tamsulosin, DuoNeb, oxygen, vitamin D, Humulin N, Coumadin, Ventolin PMH: MRSA, anemia, BPH, hyperlipidemia, hypothyroidism, COPD, diabetes SOCIAL HISTORY: The patient lives locally with his family. He denies drug, alcohol, tobacco use. PHYSICAL EXAM: VITALS: Vitals are noted on the nurse's note and reviewed by myself. Vital signs stable. GENERAL: 81-year-old male, in no acute distress, nondiaphoretic, well-developed well-nourished. NECK: Supple without nuchal rigidity. No lymphadenopathy. No thyromegaly. Cervical spine is nontender. No JVD. HEART: Regular rate and rhythm without murmurs gallops or rubs. LUNGS: Clear to auscultation bilaterally without wheezes, rales or rhonchi. No dullness to percussion. No retractions or accessory muscle use. EXTREMITIES: PICC line in place in LUE. Blood noted in the line and dressing. Dressing is in tact. EMERGENCY DEPARTMENT COURSE: The patient was seen and evaluated as above. Chest x-ray was ordered to verify PICC line placement. The PICC line is in place per radiologist interpretation. The patient was seen by IV team, and PICC line was flushed with heparin flush. I discussed these findings with the patient and his family at bedside. The patient was discharged home in good condition. RADIOLOGY: Chest X-Ray: FINDINGS: PICC catheter in superior vena cava. No evidence pneumothorax. Heart remains enlarged. Components of congestive failure persist. IMPRESSION: PICC catheter in good position within the superior vena cava. Unchanging components of congestive failure DIFFERENTIAL DIAGNOSIS: PICC line infection, PICC line dysfuntion, movement of PICC line out of place, hemorrhage from PICC line, coumadin overdose, and others. DIAGNOSIS: Blood in PICC line DISCHARGE INSTRUCTIONS & TREATMENT: Your PICC line was flushed in the emergency department by IV team. We did complete a chest x-ray to verify PICC line placement. Placement was good , and unchanged from previous chest x-ray. Please follow-up with your primary care provider and/or the physician managing your PICC line in 1-2 days. Return to the emergency department for worsening symptoms including ongoing bleeding from the PICC line, pain, inability to flush the PICC line, or other concerning symptoms. Problem List Medical Problems: (1) A-fib Status: Chronic (2) Anemia Status: Chronic (3) ASCVD (arteriosclerotic cardiovascular disease) Status: Chronic (4) CHF (congestive heart failure) Status: Chronic (5) COPD (chronic obstructive pulmonary disease) Status: Chronic (6) Dermatitis, seborrheic Status: Chronic (7) Diabetes Status: Chronic (8) Elevated alkaline phosphatase level Status: Chronic (9) Elevated LFTs Status: Chronic (10) Hyperlipidemia Status: Chronic (11) Hypertension Status: Chronic (12) Hypothyroid Status: Chronic (13) Ichthyosis Status: Chronic (14) Painful diabetic neuropathy Status: Chronic (15) Pulmonary hypertension Status: Chronic (16) Secondary hyperparathyroidism Status: Chronic (17) Sleep apnea Status: Chronic (18) Stage 3 chronic kidney disease Status: Chronic Surgical Problems: (1) Hx of CABG Status: Resolved Current/Historical Medications Scheduled Budesonide (Inhalation) (Pulmicort), 2 ML NEB BID Daptomycin (Daptomycin), 500 MG IV DAILY Ergocalciferol (Vitamin D 10991 Unit), 50,000 INTER.UNIT PO WK Furosemide (Lasix), 20 MG PO BID Insulin Lispro 75/25 (Humalog Mix 75/25), 20 UNITS SC BID Levothyroxine Sodium (Levothyroxine Sodium), 100 MCG PO DAILY Miconazole Nitrate (Desenex Shake Powder), 1 APPLN EXT DAILY Simvastatin (Zocor), 20 MG PO DAILY Tamsulosin Hcl (Flomax), 0.4 MG PO DAILY Warfarin Sod (Coumadin), 5 MG PO 5XWK Warfarin Sod (Coumadin), 2.5 MG PO 2XWK Scheduled PRN Home O2 Therapy (Oxygen), 1.5 LITER NA HS PRN for Shortness of Breath Hydrocodone/Acetaminophen 10MG/325MG ([place] 10MG/325MG), 1 TAB PO TID PRN for Pain Ipratropium-Albuterol (Duoneb), 1 TREATMENT INH TID PRN for Shortness of Breath Miscellaneous Medications Albuterol Hfa (Ventolin Hfa), 1-2 PUFFS INH Allergies Coded Allergies: Chlorpheniramine (Unverified Allergy, Unknown, ., 03/19/17) Phenylpropanolamine (Unverified Allergy, Unknown, ., 03/19/17) Vital Signs Date Time Temp Pulse Resp B/P (MAP) Pulse Ox O2 Delivery O2 Flow Rate FiO2 04/01/17 17:04 58 18 164/67 97 04/01/17 15:25 36.3 67 18 140/79 95 Room Air Medications Administered Medications (Trade) Dose Ordered Sig/Sukhwinder Route Start Time Stop Time Status Last Admin Dose Admin Heparin Sodium (Porcine) (Heparin 10 Unit/ ml 5 ml Flush) 5 ml STK-MED ONCE .ROUTE 04/01/17 15:52 04/01/17 15:53 DC 04/01/17 15:52 5 ML Departure Information Impression Primary Impression: Bleeding from PICC line Dispostion Home / Self-Care Condition GOOD Referrals Winston Harper M.D. (PCP) Patient Instructions ED PICC Line Care, [facility] Additional Instructions Your PICC line was flushed in the emergency department by IV team. We did complete a chest x-ray to verify PICC line placement. Placement was good , and unchanged from previous chest x-ray. Please follow-up with your primary care provider and/or the physician managing your PICC line in 1-2 days. Return to the emergency department for worsening symptoms including ongoing bleeding from the PICC line, pain, inability to flush the PICC line, or other concerning symptoms. Problem Qualifiers Primary Impression: Bleeding from PICC line Encounter type: initial encounter Qualified Codes: T82.838A - Hemorrhage due to vascular prosthetic devices, implants and grafts, initial encounter
[2017-04-01 17:04] VITALS: BP 164/67; PULSE 58; O2SAT 97
[2017-05-30] MEDS ORDERED: FERR1TAB23 (11:27)
[2017-06-21] MEDS ORDERED: HUMALOG MIX SQ (13:55)
== END 2017-04-01 17:05 | disposition home or self-care (01) ==
LOC: C.EDB 15:23 → C.EDD 17:05
DX: T82.838A Hemorrhage due to vascular prosthetic devices, implants and grafts, initial encounter (principal); Y84.8 Other medical procedures as the cause of abnormal reaction of the patient, or of later complication, without mention of misadventure at the time of the procedure; A49.02 Methicillin resistant Staphylococcus aureus infection, unspecified site; D64.9 Anemia, unspecified; N40.0 Benign prostatic hyperplasia without lower urinary tract symptoms; E78.5 Hyperlipidemia, unspecified; E03.9 Hypothyroidism, unspecified; J44.9 Chronic obstructive pulmonary disease, unspecified; I48.91 Unspecified atrial fibrillation; Q80.9 Congenital ichthyosis, unspecified; G47.30 Sleep apnea, unspecified; N18.3 Chronic kidney disease, stage 3 (moderate); E11.40 Type 2 diabetes mellitus with diabetic neuropathy, unspecified; Z95.1 Presence of aortocoronary bypass graft; Z79.4 Long term (current) use of insulin; Z79.01 Long term (current) use of anticoagulants; Z79.899 Other long term (current) drug therapy; I11.0 Hypertensive heart disease with heart failure

== ENCOUNTER → 2017-04-06 | Outpatient (CLI) | payer OTHER ==
[~2017-04-06] MED LIST changes: -BUDE1SUS INH; +BUDE1SUS NEB; +CEFD1CAP14 PO; +CIPR1TAB10 PO; +CIPR1TAB11 PO; -CMD25 PO; +CPR/500 PO; -CPR500 PO; +FERR1TAB23; -FRS/40 PO; +FURO-85 PO; +HMLI7525 SC; +HUMALOG MIX SQ; +HYDR-4079 PO; -INSU1INJ SC; -MCTP EXT; +MCTP/85 EXT; +PROBCAP PO
[2017-04-06 14:55] LABS: HEMATOCRIT 33.5 % (42-52); MEAN CORPUSCULAR HEMOGLOBIN 27.4 pg (25-34); MEAN CORPUSCULAR HGB CONC 30.1 g/dl (32-36); PLATELET COUNT 204 K/uL (130-400); RED BLOOD COUNT 3.68 M/uL (4.7-6.1); WHITE BLOOD COUNT 5.79 K/uL (4.8-10.8)
[2017-04-06 15:07] LABS: BLOOD UREA NITROGEN 35 mg/dl (7-18); BUN/CREATININE RATIO 20.6 (10-20); CALCIUM 8.6 mg/dl (8.5-10.1); CARBON DIOXIDE 28 mmol/L (21-32); CHLORIDE 107 mmol/L (98-107); GLUCOSE 130 mg/dl (70-99); POTASSIUM 4.3 mmol/L (3.5-5.1); SODIUM 141 mmol/L (136-145)
== END | disposition home or self-care (01) ==
LOC: C.LABSPEC 14:21
PROVIDERS: ATTEND Internal Medicine Infectious Disease
DX: M86.9 Osteomyelitis, unspecified (principal); B95.62 Methicillin resistant Staphylococcus aureus infection as the cause of diseases classified elsewhere

== ENCOUNTER 2017-04-11 18:17 | Inpatient (IN) | payer OTHER ==
[~2017-04-11] VITALS: Ht 175.3 cm; Wt 125.6 kg
[~2017-04-11 18:17] MED LIST changes: -CEFD1CAP14 PO; -CIPR1TAB10 PO; -CIPR1TAB11 PO; -CPR/500 PO; -FERR1TAB23; -HUMALOG MIX SQ; -PROBCAP PO
[2017-04-11] MEDS ORDERED: PIPERACILLIN/TAZOBACTAM 4.5 GM/100ML D5W IV STA (18:35)
[2017-04-11] MEDS ORDERED: ACETAMINOPHEN 500 MG TAB PO STA (18:35)
[2017-04-11] MEDS ORDERED: SODIUM CHLORIDE 0.9% 1000ML 1,000 ML IV STA (18:35)
[2017-04-11] MEDS ORDERED: SODIUM CHLORIDE 0.9% 1000ML 500 ML IV ONE (18:35)
--- NOTE | 2017-04-11 18:45 | EMERGENCY ROOM VISIT NOTE ---
History Report prepared by Derick: Eliezer Penaloza Under the Supervision of: Dr. Shadi Glasgow M.D. First contact with patient: 18:27 Chief Complaint: ILLNESS Stated Complaint: FEVER, SOB History of Present Illness The patient is an 81 year old male who is anemic who presents to the Emergency Room with complaints of a worsening illness over the past few days. He says that last night, he started to have a lot of nausea, and he thinks it may have had something to do with what he previously ate. The patient then says that he started having a fever, and he took Tylenol, which brought his temperature down a bit. He states that he was able to get some sleep. The patient went to the infusion center today for an iron infusion around 4 and a half hours ago, which went smoothly, but when he got home, he started getting short of breath with any exertion. The patient adds that he started getting a fever again, and his temperature jumped 2 degrees in an hour. He has not taken any Tylenol today. He adds that he has been coughing up heavy mucous. He notes that he has had iron infusions before with no problems. The patient was hospitalized here from March 19 to March 23 for MRSA bacteremia, and he is taking Daptomycin every other day via a PICC line. The patient denies any chest pain, sore throat, abdominal pain, or urinary symptoms. The patient uses a urinary catheter at home. He has a history of atrial fibrillation. Source of History: patient, family Onset: Past few days Position: other (global - illness) Timing: worsening Associated Symptoms: + fevers, + cough, + SOB, + nausea, No sorethroat, No chest pain, No abdominal pain, No urinary symptoms Note: Associated symptoms: Chest congestion. Review of Systems See HPI for pertinent positives & negatives. A total of 10 systems reviewed and were otherwise negative. Past Medical & Surgical Medical Problems: (1) A-fib (2) Acute kidney injury (3) Anemia (4) ASCVD (arteriosclerotic cardiovascular disease) (5) CHF (congestive heart failure) (6) COPD (chronic obstructive pulmonary disease) (7) Dermatitis, seborrheic (8) Diabetes (9) Elevated alkaline phosphatase level (10) Elevated LFTs (11) Hyperlipidemia (12) Hypertension (13) Hyponatremia (14) Hypotension (15) Hypothyroid (16) Ichthyosis (17) Metabolic acidosis (18) MRSA bacteremia (19) Osteomyelitis of left foot (20) Painful diabetic neuropathy (21) Pulmonary hypertension (22) Secondary hyperparathyroidism (23) Shortness of breath (24) SIRS (systemic inflammatory response syndrome) (25) Sleep apnea (26) Stage 3 chronic kidney disease (27) Urinary retention Surgical Problems: (1) Hx of CABG Family History FH: diabetes mellitus FH: hypertension Social History Smoking Status: Never Smoker Marital Status: Housing Status: lives with significant other Occupation Status: retired Current/Historical Medications Scheduled Budesonide (Inhalation) (Pulmicort), 2 ML NEB BID Daptomycin (Daptomycin), 500 MG IV DAILY Ergocalciferol (Vitamin D 94387 Unit), 50,000 INTER.UNIT PO WK Furosemide (Lasix), 20 MG PO BID Insulin Lispro 75/25 (Humalog Mix 75/25), 20 UNITS SC BID Levothyroxine Sodium (Levothyroxine Sodium), 100 MCG PO DAILY Probiotic Product (Punchey), 1 CAP PO DAILY Simvastatin (Zocor), 20 MG PO DAILY Tamsulosin Hcl (Flomax), 0.4 MG PO DAILY Warfarin Sod (Coumadin), 5 MG PO 5XWK Warfarin Sod (Coumadin), 2.5 MG PO 2XWK Scheduled PRN Home O2 Therapy (Oxygen), 1.5 LITER NA HS PRN for Shortness of Breath Hydrocodone/Acetaminophen 10MG/325MG ([place] 10MG/325MG), 1 TAB PO TID PRN for Pain Ipratropium-Albuterol (Duoneb), 1 TREATMENT INH TID PRN for Shortness of Breath Miconazole Nitrate (Desenex Shake Powder), 1 APPLN EXT DAILY PRN for Itching Miscellaneous Medications Albuterol Hfa (Ventolin Hfa), 1-2 PUFFS INH Allergies Coded Allergies: Chlorpheniramine (Verified Allergy, Unknown, ., 04/11/17) Phenylpropanolamine (Verified Allergy, Unknown, ., 04/11/17) Physical Exam Vital Signs Date Time Temp Pulse Resp B/P (MAP) Pulse Ox O2 Delivery O2 Flow Rate FiO2 04/11/17 20:01 37.0 04/11/17 19:28 78 22 147/67 95 Nasal Cannula 2.0 7/26/17 19:10 79 04/11/17 19:07 95 Nasal Cannula 2.0 04/11/17 19:01 89 Room Air 04/11/17 18:21 37.7 88 18 163/74 94 Room Air Physical Exam GENERAL: Patient is in no acute distress. HEENT: No acute trauma, normocephalic atraumatic, mucous membranes dry, no nasal congestion, no scleral icterus. NECK: No stridor, no adenopathy, no meningismus, trachea is midline. LUNGS: Occasional crackles on right. No wheezing. Breath sounds are equal. HEART: Without murmurs gallops or rubs, regular rate and rhythm. CHEST: Nontender anterior chest wall. ABDOMEN: Soft, nontender, bowel sounds positive, no hernias, no peritonitis. EXTREMITIES: No cyanosis or edema, full range of motion of all the joints without pain or difficulty, no signs for acute trauma. No cellulitis. NEUROLOGIC: Oriented x 3, no acute motor or sensory deficits, no focal weakness. SKIN: No rash, no jaundice, no diaphoresis. Medical Decision & Procedures ER Provider Diagnostic Interpretation: X-ray results as stated below per interpretation by me and the radiologist: CHEST ONE VIEW PORTABLE CLINICAL HISTORY: Sepsis. COMPARISON STUDY: Chest radiograph April 01, 2017. FINDINGS: Postoperative findings involving the anterior chest wall are noted. A left PICC is noted. The tip is likely within the SVC. No pneumothorax or pleural effusion is present. Cardiomegaly is unchanged. There is no evidence of pulmonary edema. There is no consolidation to suggest pneumonia. IMPRESSION: No acute cardiopulmonary findings. No change in appearance of the chest. Electronically signed by: Maurizio Bowman M.D. 04/11/2017 7:44 PM Dictated Date/Time: 04/11/2017 7:19 PM Laboratory Results 04/11/17 18:53 Red Blood Count 3.61, Mean Corpuscular Volume 91.1, Mean Corpuscular Hemoglobin 29.1, Mean Corpuscular Hemoglobin Concent 31.9, Mean Platelet Volume 9.0, Neutrophils (%) (Auto) 86.7, Lymphocytes (%) (Auto) 3.3, Monocytes (%) (Auto) 8.4, Eosinophils (%) (Auto) 1.1, Basophils (%) (Auto) 0.2, Neutrophils # (Auto) 10.14, Lymphocytes # (Auto) 0.39, Monocytes # (Auto) 0.98, Eosinophils # (Auto) 0.13, Basophils # (Auto) 0.02 04/11/17 18:53 Test 04/11/17 18:53 04/11/17 19:03 04/11/17 19:27 White Blood Count 11.70 K/uL (4.8-10.8) Red Blood Count 3.61 M/uL (4.7-6.1) Hemoglobin 10.5 g/dL (14.0-18.0) Hematocrit 32.9 % (42-52) Mean Corpuscular Volume 91.1 fL (80-100) Mean Corpuscular Hemoglobin 29.1 pg (25-34) Mean Corpuscular Hemoglobin Concent 31.9 g/dl (32-36) Platelet Count 204 K/uL (130-400) Mean Platelet Volume 9.0 fL (7.4-10.4) Neutrophils (%) (Auto) 86.7 % Lymphocytes (%) (Auto) 3.3 % Monocytes (%) (Auto) 8.4 % Eosinophils (%) (Auto) 1.1 % Basophils (%) (Auto) 0.2 % Neutrophils # (Auto) 10.14 K/uL (1.4-6.5) Lymphocytes # (Auto) 0.39 K/uL (1.2-3.4) Monocytes # (Auto) 0.98 K/uL (0.11-0.59) Eosinophils # (Auto) 0.13 K/uL (0-0.5) Basophils # (Auto) 0.02 K/uL (0-0.2) RDW Standard Deviation 68.1 fL (36.4-46.3) RDW Coefficient of Variation 20.6 % (11.5-14.5) Immature Granulocyte % (Auto) 0.3 % Immature Granulocyte # (Auto) 0.04 K/uL (0.00-0.02) Anisocytosis PRESENT Prothrombin Time 34.1 SECONDS (9.0-12.0) Prothromb Time International Ratio 3.0 (0.9-1.1) Activated Partial Thromboplast Time 49.9 SECONDS (21.0-31.0) Partial Thromboplastin Ratio 1.9 Anion Gap 9.0 mmol/L (3-11) Est Creatinine Clear Calc Drug Dose 40.9 ml/min Estimated GFR () 37.5 Estimated GFR (Non- 32.3 BUN/Creatinine Ratio 21.5 (10-20) Calcium Level 8.8 mg/dl (8.5-10.1) Magnesium Level 2.2 mg/dl (1.8-2.4) Total Bilirubin 1.7 mg/dl (0.2-1) Aspartate Amino Transf (AST/SGOT) 63 U/L (15-37) Alanine Aminotransferase (ALT/SGPT) 41 U/L (12-78) Alkaline Phosphatase 943 U/L (45-117) Total Protein 7.3 gm/dl (6.4-8.2) Albumin 3.0 gm/dl (3.4-5.0) Globulin 4.3 gm/dl (2.5-4.0) Albumin/Globulin Ratio 0.7 (0.9-2) Thyroid Stimulating Hormone (TSH) 0.495 uIu/ml (0.300-4.500) Free Thyroxine 0.83 ng/dl (0.80-1.60) Bedside Lactic Acid Venous 1.53 mmol/L (0.90-1.70) Urine Color YELLOW Urine Appearance CLOUDY (CLEAR) Urine pH 5.5 (4.5-7.5) Urine Specific [place] 1.017 (1.000-1.030) Urine Protein 2+ (NEG) Urine Glucose (UA) NEG (NEG) Urine Ketones NEG (NEG) Urine Occult Blood 2+ (NEG) Urine Nitrite NEG (NEG) Urine Bilirubin NEG (NEG) Urine Urobilinogen NEG (NEG) Urine Leukocyte Esterase MODERATE (NEG) Urine WBC (Auto) >30 /hpf (0-5) Urine RBC (Auto) 10-30 /hpf (0-4) Urine Hyaline Casts (Auto) 5-10 /lpf (0-5) Urine Epithelial Cells (Auto) 0-5 /lpf (0-5) Urine Bacteria (Auto) 4+ (NEG) Laboratory results reviewed by me. Medications Administered Medications (Trade) Dose Ordered Sig/Sukhwinder Route Start Time Stop Time Status Last Admin Dose Admin Sodium Chloride 500 ml @ 999 mls/hr Q31M ONCE IV 04/11/17 18:35 04/11/17 19:05 DC 04/11/17 19:06 999 MLS/HR Piperacillin Sod/ Tazobactam Sod (Zosyn Iv) 4.5 gm ONE STAT IV 04/11/17 18:35 04/11/17 18:42 DC 04/11/17 19:06 4.5 GM Acetaminophen (Tylenol Tab) 1,000 mg NOW STAT PO 04/11/17 18:35 04/11/17 18:42 DC 04/11/17 19:07 1,000 MG Sodium Chloride 1,000 ml @ 125 mls/hr Q8H STAT IV 04/11/17 18:35 04/12/17 02:34 04/11/17 19:06 125 MLS/HR Vancomycin HCl (Vancomycin 1gm/ 270ml Nss) 1 gm NOW STAT IV 04/11/17 19:32 04/11/17 19:34 DC 04/11/17 19:58 1 GM ECG Indication: SOB/dyspnea Rate (beats per minute): 81 Rhythm: atrial fibrillation Findings: no acute ischemic change, no ectopy Change: no significant change (compared to March 21 2017) ED Course 183: The patient was evaluated in room B2. A complete history and physical exam was performed. 1834: Ordered NSS 1000 ml @ 125 mls/hr IV, Tylenol Tab 1000 mg PO, Zosyn IV 4.5 gm IV, NSS 500 ml @ 999 mls/hr IV. 1999: Ordered Vancomycin HCl 2500 mg/Sodium Chloride 550 ml @ 200 mls/hr IV. 2007: I reevaluated the patient and he is resting. The patient verbally expressed understanding and agreement of the treatment plan. The patient will be evaluated for further treatment. 2013: I discussed the patient with Dr. Barrios - [facility] hospitalist - he will evaluate the patient for further treatment. Medical Decision Differential diagnoses considered include sepsis, bacteremia, UTI, pneumonia, dehydration, viral illness, failed outpatient treatment. There is a mild leukocytosis, this could be consistent with infection. No concerning anemia. There was some mild renal insufficiency/failure when compared to previous creatinine values. There were a few liver enzyme elevations, in particular, his alkaline phosphatase was in the 900 range-this is higher than it has been in the past. Lactic acid level is not elevated making severe sepsis less likely. Chest x-ray shows some cardiomegaly, there was no focal pneumonia. EKG showed A. fib, no acute ischemic change. Cardiac enzyme testing 1 is not consistent with acute cardiac injury. Blood cultures are pending. Urinalysis does suggest infection, urine culture is pending. On exam, there was no cellulitis. INR was elevated at 3 consistent with his Coumadin use. The patient received IV Zosyn, IV vancomycin, IV saline and oral Tylenol. He is resting comfortably. The patient presents with a fever despite his at home IV daptomycin. He has a history of MRSA bacteremia. Admission/observation is warranted. I did speak to the patient and case management. The on-call hospitalist was consulted. Given the positive urinalysis, the patient may have a UTI as the source for his fever/infection. Medication Reconcilliation Current Medication List: was personally reviewed by me Consults Time Called: 2009 Consulting Physician: Dr. Denis MCFARLAND hospitalist Returned Call: 2013 I discussed the patient with Dr. Denis MCFARLAND hospitalist - he will evaluate the patient for further treatment. Impression Primary Impression: Fever Additional Impressions: UTI (urinary tract infection) Leukocytosis Failure of outpatient treatment Scribe Attestation The scribe's documentation has been prepared under my direction and personally reviewed by me in its entirety. I confirm that the note above accurately reflects all work, treatment, procedures, and medical decision making performed by me. Departure Information Dispostion Being Evaluated By Hospitalist Referrals Winston Harper M.D. (PCP) Patient Instructions My [facility] Problem Qualifiers Primary Impression: Fever Fever type: unspecified Qualified Codes: R50.9 - Fever, unspecified Additional Impressions: UTI (urinary tract infection) Urinary tract infection type: site unspecified Hematuria presence: without hematuria Qualified Codes: N39.0 - Urinary tract infection, site not specified Leukocytosis Leukocytosis type: unspecified Qualified Codes: D72.829 - Elevated white blood cell count, unspecified
[2017-04-11 19:08] LABS: BASO % 0.2 %; BASO ABS # 0.02 K/uL (0-0.2); EOS % 1.1 %; HEMATOCRIT 32.9 % (42-52); IG% 0.3 %; LYMPH % 3.3 %; LYMPH ABS # 0.39 K/uL (1.2-3.4); MEAN CELL VOLUME 91.1 fL (80-100); MEAN CORPUSCULAR HEMOGLOBIN 29.1 pg (25-34); MEAN CORPUSCULAR HGB CONC 31.9 g/dl (32-36); MONO % 8.4 %; NEUT % 86.7 %; PLATELET COUNT 204 K/uL (130-400); RED BLOOD COUNT 3.61 M/uL (4.7-6.1)
[2017-04-11] MEDS ORDERED: PROBCAP PO (19:16)
[2017-04-11 19:22] LABS: BUN/CREATININE RATIO 21.5 (10-20); CALCIUM 8.8 mg/dl (8.5-10.1); CREATININE 1.9 mg/dl (0.60-1.40); MAGNESIUM 2.2 mg/dl (1.8-2.4); POTASSIUM 4.2 mmol/L (3.5-5.1)
[2017-04-11 19:28] LABS: PARTIAL THROMBOPLASTIN RATIO 1.9; PROTHROMBIN TIME (PATIENT) 34.1 SECONDS (9.0-12.0)
[2017-04-11] MEDS ORDERED: VANCOMYCIN 1GM/270ML NSS IV STA (19:32)
[2017-04-11 19:36] LABS: ANISOCYTOSIS PRESENT; COMPLETE YES
[2017-04-11 19:37] LABS: ALB/GLOB RATIO 0.7 (0.9-2); THYROID STIMULATING HORMONE 0.495 uIu/ml (0.300-4.500)
[2017-04-11 19:46] LABS: URINE APPEARANCE CLOUDY (CLEAR); URINE BILIRUBIN NEG (NEG); URINE COLOR YELLOW; URINE EPITHELIAL CELL AUTO 0-5 /lpf (0-5); URINE NITRITE NEG (NEG); URINE PH 5.5 (4.5-7.5); URINE SPECIFIC GRAVITY 1.017 (1.000-1.030); UROBILINOGEN NEG (NEG)
--- NOTE | 2017-04-11 19:46 | DIAGNOSTIC IMAGING REPORT ---
CHEST ONE VIEW PORTABLE CLINICAL HISTORY: Sepsis. COMPARISON STUDY: Chest radiograph April 01, 2017. FINDINGS: Postoperative findings involving the anterior chest wall are noted. A left PICC is noted. The tip is likely within the SVC. No pneumothorax or pleural effusion is present. Cardiomegaly is unchanged. There is no evidence of pulmonary edema. There is no consolidation to suggest pneumonia. IMPRESSION: No acute cardiopulmonary findings. No change in appearance of the chest. Electronically signed by: Maurizio Bowman M.D. 04/11/2017 7:44 PM Dictated Date/Time: 04/11/2017 7:19 PM
[2017-04-11 19:48] LABS: MANUAL MICROSCOPIC REQUIRED? NO; REVIEW REQ? NO
[2017-04-11] MEDS ORDERED: VANCOMYCIN INJ 2,500 MG in SODIUM CHLORIDE 0.9% 500ML 500 ML IV ONE (20:00)
[2017-04-11] MEDS ORDERED: ONDANSETRON INJ 2 MG/ML 2 ML VIAL IV PRN (21:30)
[2017-04-11 21:52] VITALS: Ht 175.3 cm; Wt 125.6 kg
--- NOTE | 2017-04-11 21:57 | History and Physical ---
History & Physical Date & Time of Service: Apr 11, 2017 at 21:35 Chief Complaint: Fever, Sob Primary Care Physician: Winston Harper M.D. History of Present Illness Source: patient, hospital records Mr Avery is an 81 year old male with atrial fibrillation, coronary artery disease status post CABG, CHF, hypertension, hypothyroidism, diabetes, elevated LFTs, sleep apnea, pulmonary hypertension, secondary hyperparathyroidism, stage III kidney disease who presents to the ER with shortness of breath and fever over the past 2 days. Fever started last night with associated nausea but he just took some acetaminophen and it went away after a few hours so he went to bed. He then became short of breath and feverish around 5pm today which lasted until he arrived in the ER. He denies any abdo pain, diarrhea, constipation or vomiting. He describes his shortness of breath as intermittent on and off over the last couple of months, usually last for around 30 mins, better when he rests and worse on exertion. No associated chest pain or diaphoresis. He was recently admitted to [facility] on 03/13 with symptomatic anemia and received 2 units of blood. He then was readmitted on 03/19 with sepsis and confirmed MRSA bacteremia. He had a PICC line placed and has been receiving IV daptomycin under the guidance of Dr Rabago. Of note he has had to straight cath daily on advice of his urologist, over the last few weeks but he is unclear of the cause of his urinary retention ( although diagnosis on BPH on previous admission) and notes he is due for outpatient cystoscopy. Past Medical/Surgical History Medical Problems: (1) A-fib Status: Chronic (2) Anemia Status: Chronic (3) ASCVD (arteriosclerotic cardiovascular disease) Status: Chronic (4) CHF (congestive heart failure) Status: Chronic (5) COPD (chronic obstructive pulmonary disease) Status: Chronic (6) Dermatitis, seborrheic Status: Chronic (7) Diabetes Status: Chronic (8) Elevated alkaline phosphatase level Status: Chronic (9) Elevated LFTs Status: Chronic (10) Hyperlipidemia Status: Chronic (11) Hypertension Status: Chronic (12) Hypothyroid Status: Chronic (13) Ichthyosis Status: Chronic (14) Painful diabetic neuropathy Status: Chronic (15) Pulmonary hypertension Status: Chronic (16) Secondary hyperparathyroidism Status: Chronic (17) Sleep apnea Status: Chronic (18) Stage 3 chronic kidney disease Status: Chronic Surgical Problems: (1) Hx of CABG Status: Resolved Family History FH: diabetes mellitus FH: hypertension Social History Smoking Status: Never Smoker Smokeless Tobacco Use: No Alcohol Use: none Drug Use: none Marital Status: Housing status: lives with family Occupational Status: retired Immunizations History of Influenza Vaccine: Yes History of Tetanus Vaccine?: Yes History of Pneumococcal: Yes History of Hepatitis B Vaccine: Yes Multi-Drug Resistant Organisms History of MDRO: Yes Type of MDRO: MRSA Allergies Coded Allergies: Chlorpheniramine (Verified Allergy, Unknown, ., 04/11/17) Phenylpropanolamine (Verified Allergy, Unknown, ., 04/11/17) Home Medications Scheduled Budesonide (Inhalation) (Pulmicort), 2 ML NEB BID Ciprofloxacin Tab (Cipro), 1 TAB PO BID Ergocalciferol (Vitamin D 42373 Unit), 50,000 INTER.UNIT PO WK Furosemide (Lasix), 20 MG PO BID Insulin Lispro 75/25 (Humalog Mix 75/25), 20 UNITS SC BID Levothyroxine Sodium (Levothyroxine Sodium), 100 MCG PO DAILY Probiotic Product ([place]), 1 CAP PO DAILY Simvastatin (Zocor), 20 MG PO DAILY Tamsulosin Hcl (Flomax), 0.4 MG PO BID Warfarin Sod (Coumadin), 5 MG PO 5XWK Warfarin Sod (Coumadin), 2.5 MG PO 2XWK Scheduled PRN Home O2 Therapy (Oxygen), 1.5 LITER NA HS PRN for Shortness of Breath Hydrocodone/Acetaminophen 10MG/325MG ([place] 10MG/325MG), 1 TAB PO TID PRN for Pain Ipratropium-Albuterol (Duoneb), 1 TREATMENT INH TID PRN for Shortness of Breath Miconazole Nitrate (Desenex Shake Powder), 1 APPLN EXT DAILY PRN for Itching Miscellaneous Medications Albuterol Hfa (Ventolin Hfa), 1-2 PUFFS INH Review of Systems Constitutional: + fever Eyes: No worsening of vision ENT: No hearing loss Respiratory: + cough (chronic), + sputum (chronic), + shortness of breath ( since December intermittently on exertion), No dyspnea at rest, No hemoptysis Cardiovascular: + edema, No chest pain, No orthopnea, No PND, No claudication, No palpitations Abdomen: No pain, No nausea, No vomiting, No diarrhea, No constipation, No GI bleeding Musculoskeletal: No joint pain, No muscle pain Genitourinary - Male: No hematuria, No dysuria, No urinary frequency, No urinary urgency Neurologic: + numbness/tingling, + balance problems (generalized weakness), No memory loss Hematologic / Lymphatic: No abnormal bleeding/bruising Integumentary: No rash, No itch Physical Exam Vital Signs Date Time Temp Pulse Resp B/P (MAP) Pulse Ox O2 Delivery O2 Flow Rate FiO2 04/11/17 21:05 65 22 126/60 92 04/11/17 20:01 37.0 04/11/17 19:28 78 22 147/67 95 Nasal Cannula 2.0 04/11/17 19:10 79 04/11/17 19:07 95 Nasal Cannula 2.0 04/11/17 19:01 89 Room Air 04/11/17 18:21 37.7 88 18 163/74 94 Room Air General Appearance: + mild distress (appears wheezing at rest mildly short of breath), + obese Eyes: normal inspection, PERRL, EOMI ENT: hearing grossly normal, pharynx normal (no sign of oral thrush) Neck: supple, no JVD, trachea midline Respiratory/Chest: no accessory muscle use, + respiratory distress (mild with wheezing and appears short of breath), + crackles (bibasal fine), + wheezing ( expiratory wheeze throughout) Cardiovascular: normal peripheral pulses, + systolic murmur (loudest in LUSB radiates to carotids), + irregularly irregular (known atrial fibrillation) Abdomen/GI: normal bowel sounds, non tender, soft Back: no CVA tenderness Extremities/Musculoskelatal: no calf tenderness, normal capillary refill, non- tender, + pedal edema (2+ to knees), + pertinent finding (PICC line site appears healthy dry and intact, no erythema) Neurologic/Psych: plate cleaner II-XII nml as tested (no facial droop), no motor/sensory deficits (grossly intact although he notes he has peripheral neuropathy in his feet he can feel light touch bilaterally), alert, oriented x 3 Skin: normal color, warm/dry, no rash, + pertinent finding (thickened dry skin on extremities, especially feet with onychomycosis) Diagnostics Laboratory Results Results Past 24 Hours Test 04/11/17 18:53 04/11/17 19:03 04/11/17 19:27 Range/Units White Blood Count 11.70 4.8-10.8 K/uL Red Blood Count 3.61 4.7-6.1 M/uL Hemoglobin 10.5 14.0-18.0 g/dL Hematocrit 32.9 42-52 % Mean Corpuscular Volume 91.1 80-100 fL Mean Corpuscular Hemoglobin 29.1 25-34 pg Mean Corpuscular Hemoglobin Concent 31.9 32-36 g/dl Platelet Count 204 130-400 K/uL Mean Platelet Volume 9.0 7.4-10.4 fL Neutrophils (%) (Auto) 86.7 % Lymphocytes (%) (Auto) 3.3 % Monocytes (%) (Auto) 8.4 % Eosinophils (%) (Auto) 1.1 % Basophils (%) (Auto) 0.2 % Neutrophils # (Auto) 10.14 1.4-6.5 K/uL Lymphocytes # (Auto) 0.39 1.2-3.4 K/uL Monocytes # (Auto) 0.98 0.11-0.59 K/uL Eosinophils # (Auto) 0.13 0-0.5 K/uL Basophils # (Auto) 0.02 0-0.2 K/uL RDW Standard Deviation 68.1 36.4-46.3 fL RDW Coefficient of Variation 20.6 11.5-14.5 % Immature Granulocyte % (Auto) 0.3 % Immature Granulocyte # (Auto) 0.04 0.00-0.02 K/uL Anisocytosis PRESENT Prothrombin Time 34.1 9.0-12.0 SECONDS Prothromb Time International Ratio 3.0 0.9-1.1 Activated Partial Thromboplast Time 49.9 21.0-31.0 SECONDS Partial Thromboplastin Ratio 1.9 Sodium Level 139 136-145 mmol/L Potassium Level 4.2 3.5-5.1 mmol/L Chloride Level 105 98-107 mmol/L Carbon Dioxide Level 25 21-32 mmol/L Anion Gap 9.0 3-11 mmol/L Blood Urea Nitrogen 41 7-18 mg/dl Creatinine 1.90 0.60-1.40 mg/dl Est Creatinine Clear Calc Drug Dose 40.9 ml/min Estimated GFR () 37.5 Estimated GFR (Non- 32.3 BUN/Creatinine Ratio 21.5 10-20 Random Glucose 126 70-99 mg/dl Calcium Level 8.8 8.5-10.1 mg/dl Magnesium Level 2.2 1.8-2.4 mg/dl Total Bilirubin 1.7 0.2-1 mg/dl Aspartate Amino Transf (AST/SGOT) 63 15-37 U/L Alanine Aminotransferase (ALT/SGPT) 41 12-78 U/L Alkaline Phosphatase 943 45-117 U/L Total Protein 7.3 6.4-8.2 gm/dl Albumin 3.0 3.4-5.0 gm/dl Globulin 4.3 2.5-4.0 gm/dl Albumin/Globulin Ratio 0.7 0.9-2 Thyroid Stimulating Hormone (TSH) 0.495 0.300-4.500 uIu/ml Free Thyroxine 0.83 0.80-1.60 ng/dl Bedside Lactic Acid Venous 1.53 0.90-1.70 mmol/L Urine Color YELLOW Urine Appearance CLOUDY CLEAR Urine pH 5.5 4.5-7.5 Urine Specific [place] 1.017 1.000-1.030 Urine Protein 2+ NEG Urine Glucose (UA) NEG NEG Urine Ketones NEG NEG Urine Occult Blood 2+ NEG Urine Nitrite NEG NEG Urine Bilirubin NEG NEG Urine Urobilinogen NEG NEG Urine Leukocyte Esterase MODERATE NEG Urine WBC (Auto) >30 0-5 /hpf Urine RBC (Auto) 10-30 0-4 /hpf Urine Hyaline Casts (Auto) 5-10 0-5 /lpf Urine Epithelial Cells (Auto) 0-5 0-5 /lpf Urine Bacteria (Auto) 4+ NEG Microbiology Results 04/11/17 Blood Culture, Received Pending 04/11/17 Blood Culture, Received Pending 04/11/17 Urine Culture, Received Pending Diagnostic Radiology CHEST ONE VIEW PORTABLE CLINICAL HISTORY: Sepsis. COMPARISON STUDY: Chest radiograph April 01, 2017. FINDINGS: Postoperative findings involving the anterior chest wall are noted. A left PICC is noted. The tip is likely within the SVC. No pneumothorax or pleural effusion is present. Cardiomegaly is unchanged. There is no evidence of pulmonary edema. There is no consolidation to suggest pneumonia. IMPRESSION: No acute cardiopulmonary findings. No change in appearance of the chest. Electronically signed by: Maurizio Bowman M.D. 04/11/2017 7:44 PM Dictated Date/Time: 04/11/2017 7:19 PM EKG Atrial fibrillation, rate 81 bpm No change from prior EKG (21 March 2017) Impression Assessment and Plan 81 year old male with ongoing fever despite IV daptomycin use for MRSA bacteremia under Dr Rabago Fever of unknown origin - on treatment for MRSA bacteremia, lactic acid < 2 - blood cultures pending - UA pending at this time but patient straight caths daily and has slight burning sensation on urination - will send for culture. pansensitive e. coli on last admission treated with zosyn - PICC line - US for thrombus ordered. 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 diff given prolonged antibiotic use COPD - he is unsure whether he has a diagnosis of COPD or asthma. - will switch his pulmicort neb to fluticase 220 mcg inhaler to be used with a spacer and needs to wash out mouth afterwards. - duonebs QID + Q2H PRN for shortness of breath and wheezing Permanent Atrial fibrillation - rate controlled - anticoagulated with warfarin Normocytic Anemia - chronic - at baseline Coronary artery disease / congestive heart failure / Hyperlipidemia / Hypertension - no apparent pulmonary edema on CXR - continue Lasix outpatient dose 20mg BID PO - hold simvastatin due to elevated LFTs T2DM - glycemic control consult Hypothyroid - continue levothyroxine 100 mcg PO QAM Stage 3 chronic kidney disease with Secondary hyperparathyroidism - Cr at baseline - monitor renal function Sleep apnea - may use own CPAP at night with 2L O2 BPH/urinary retention - continue tamsulosin, continue straight cath daily as per his outpatient urology recommendations. had rucker placed on last admission 03/19 for urinary retention. Code - Full VTE Prophylaxis - on therapeutic warfarin - daily PTINR Disposition - observation status to med/surg Attending Addendum: I have physically seen and examined this patient, have supervised the medical residents activities, and agree with the H&P as noted above with the following exceptions: NONE The patient is awake, alert and oriented 3, obese, normocephalic and atraumatic , lying in bed and in no acute distress. HEENT--PERRL, EOMI, mucous membranes and oropharynx dry. Neck--supple, no JVD or bruits, thyroid normal, trachea midline, no adenopathy. Heart--irregularly irregular. Systolic murmur left upper sternal border. No Rubs or gallops. Lungs--coarse breath sounds bilaterally, crackles at the bases bilaterally mild respiratory distress, no accessory muscle use. Abdomen--normal bowel sounds and soft, nontender and nondistended, obese. Extremities--no cyanosis, clubbing. There is bilaterally pretibial and pedal 2 + pitting Edema. There are good distal pulses b/l. Dermatologic--normal skin turgor, normal color, warm and dry, no abnormal lymph nodes, no rash. Neurologic--cranial nerves II through XII grossly intact. Rheumatologic--decreased range of motion throughout. Psychiatric--normal affect. Assessment and Plan: 1. Infectious disease--patient has been on IV daptomycin for MRSA bacteremia followed by Dr. Rabago from infectious disease. We'll stop daptomycin IV, and start vancomycin IV. We'll place on Zosyn to cover previous issues with Escherichia coli urinary tract infections, with present urine culture and sensitivity pending. With history of PICC line, will be concerned about the possibility of thrombus and septic emboli, and therefore order ultrasound Doppler be performed of the upper extremity. Empiric treatment with antifungal since he has been on antibiotics for an extended interval time and now has a temperature. Place on duonebs 4 times a day and every 2 hours when necessary. Consult infectious disease. Level of Care Med/Surg Advanced Directives Existing Advance Directive: No Existing Living Will: Yes Existing Power of Filer Helper: Yes Resuscitation Status FULL RESUSCITATION VTE Prophylaxis VTE Risk Assessment Done? Y/N: Yes Risk Level: High Given or contraindicated: Warfarin (Coumadin) Additional Copies To Winston Harper M.D. Resident Tracking Resident Involvement: Resident Care Provided Care Provided: Adult ED
[2017-04-11] MEDS ORDERED: IV FLUIDS COMPLETED PRN (22:00)
[2017-04-11] MEDS ORDERED: HYDROCODONE/ACETAMI 10/325 TAB PO PRN (22:00)
[2017-04-11] MEDS ORDERED: ALBUTEROL HFA 8 GM INHALER INH PRN (22:00)
[2017-04-11] MEDS ORDERED: MICONAZOLE NITRATE POWDER 43 GM EXT PRN (22:00)
[2017-04-11] MEDS ORDERED: SODIUM CHLORIDE 0.65% NA SOLN 45 ML (OCEAN) ONE (22:35)
[2017-04-11] MEDS ORDERED: FLUTICASONE PROPIONATE NA SPR 16 GM BTL ONE (22:45)
[2017-04-11] MEDS ORDERED: FLUCONAZOLE IV STA (23:39)
[2017-04-11] MEDS ORDERED: FUROSEMIDE 20 MG TAB PO ONE (23:39)
[2017-04-11] MEDS ORDERED: PREMIXED NSS IV STA (23:39)
[2017-04-11] MEDS ORDERED: NSS IV STA (23:39)
[2017-04-11] MEDS ORDERED: CASPOFUNGIN INJ 70 MG in SODIUM CHLORIDE 0.9% 250ML 250 ML IV STA (23:45)
[2017-04-11] MEDS ORDERED: PIPERACILL/TAZOBAC IV 3.375 GM in DEXTROSE 5% 100ML 100 ML IV ONE (23:45)
[2017-04-11] MEDS ORDERED: PIPERACILL/TAZOBAC CONSULT ACTIVE PRN (23:45)
[2017-04-11] MEDS ORDERED: FLUTICASONE HFA 220 MCG INHALER INH ONE (23:49)
[2017-04-12] VITALS (8 sets, daily range): BP systolic 115–136; BP diastolic 62–70; PULSE 53–66; TEMP 36.5–37; O2SAT 91–98
[2017-04-12] MEDS ORDERED: SODIUM CHLORIDE 0.65% NA SOLN 45 ML (OCEAN) ONE (01:04)
[2017-04-12] MEDS: VANCOMYCIN INJ 1,500 MG in SODIUM CHLORIDE 0.9% 500ML 500 ML IV SCH (04:00)
[2017-04-12] MEDS ORDERED: PIPERACILL/TAZOBAC IV 3.375 GM in DEXTROSE 5% 100ML 100 ML IV SCH (06:00)
[2017-04-12] MEDS ORDERED: PHARMACY GLYCEMIC MGMT CONSULT PRN (06:07)
[2017-04-12] MEDS ORDERED: GLUCOSE 10 TABS/TUBE PO PRN (06:30)
[2017-04-12] MEDS ORDERED: GLUCOSE 40% GEL 15 GM TUBE PO PRN (06:30)
[2017-04-12] MEDS ORDERED: DEXTROSE 50% 50 ML SYR IV PRN (06:30)
[2017-04-12] MEDS ORDERED: GLUCAGON FOR INJ 1 MG VIAL SQ PRN (06:30)
--- NOTE | 2017-04-12 06:33 | DIAGNOSTIC IMAGING REPORT ---
LEFT VENOUS DOPPLER UPR EXT UNI HISTORY: Pain ?patent PICC line ?rhombus COMPARISON STUDY: None. FINDINGS: PICC line is noted. No evidence for venous thrombosis. Normal venous flow. IMPRESSION: Normal venous flow. No evidence for thrombophlebitis. The above report was generated using voice recognition software. It may contain grammatical, syntax or spelling errors. Electronically signed by: Tian Machado M.D. 04/12/2017 6:32 AM Dictated Date/Time: 04/12/2017 6:31 AM
[2017-04-12] MEDS: LEVOTHYROXINE 100 MCG TAB PO SCH (06:38)
--- NOTE | 2017-04-12 06:38 | Pharmacy Progress Note ---
Pharmacy Antibiotic Consult Date of Service: Apr 12, 2017. Pharmacy Dosing Scope Pharmacy is consulted to initiate VANC/ZOSYN-IV dosing therapy, order appropriate labs and adjust drug dose/frequency. Subjective The patient is a 81 year old male admitted on Apr 11, 2017 at 21:33. ordered broad spectrum antibiotics for bacteremia Objective Height (Feet): 5 Height (Inches): 9.00 Weight (Kilograms): 130.900 Lab Results (24hrs): Test 04/11/17 18:53 04/11/17 19:03 04/11/17 19:27 White Blood Count 11.70 K/uL (4.8-10.8) Red Blood Count 3.61 M/uL (4.7-6.1) Hemoglobin 10.5 g/dL (14.0-18.0) Hematocrit 32.9 % (42-52) Mean Corpuscular Volume 91.1 fL (80-100) Mean Corpuscular Hemoglobin 29.1 pg (25-34) Mean Corpuscular Hemoglobin Concent 31.9 g/dl (32-36) Platelet Count 204 K/uL (130-400) Mean Platelet Volume 9.0 fL (7.4-10.4) Neutrophils (%) (Auto) 86.7 % Lymphocytes (%) (Auto) 3.3 % Monocytes (%) (Auto) 8.4 % Eosinophils (%) (Auto) 1.1 % Basophils (%) (Auto) 0.2 % Neutrophils # (Auto) 10.14 K/uL (1.4-6.5) Lymphocytes # (Auto) 0.39 K/uL (1.2-3.4) Monocytes # (Auto) 0.98 K/uL (0.11-0.59) Eosinophils # (Auto) 0.13 K/uL (0-0.5) Basophils # (Auto) 0.02 K/uL (0-0.2) RDW Standard Deviation 68.1 fL (36.4-46.3) RDW Coefficient of Variation 20.6 % (11.5-14.5) Immature Granulocyte % (Auto) 0.3 % Immature Granulocyte # (Auto) 0.04 K/uL (0.00-0.02) Anisocytosis PRESENT Prothrombin Time 34.1 SECONDS (9.0-12.0) Prothromb Time International Ratio 3.0 (0.9-1.1) Activated Partial Thromboplast Time 49.9 SECONDS (21.0-31.0) Partial Thromboplastin Ratio 1.9 Sodium Level 139 mmol/L (136-145) Potassium Level 4.2 mmol/L (3.5-5.1) Chloride Level 105 mmol/L (98-107) Carbon Dioxide Level 25 mmol/L (21-32) Anion Gap 9.0 mmol/L (3-11) Blood Urea Nitrogen 41 mg/dl (7-18) Creatinine 1.90 mg/dl (0.60-1.40) Est Creatinine Clear Calc Drug Dose 40.9 ml/min Estimated GFR () 37.5 Estimated GFR (Non- 32.3 BUN/Creatinine Ratio 21.5 (10-20) Random Glucose 126 mg/dl (70-99) Calcium Level 8.8 mg/dl (8.5-10.1) Magnesium Level 2.2 mg/dl (1.8-2.4) Total Bilirubin 1.7 mg/dl (0.2-1) Aspartate Amino Transf (AST/SGOT) 63 U/L (15-37) Alanine Aminotransferase (ALT/SGPT) 41 U/L (12-78) Alkaline Phosphatase 943 U/L (45-117) Total Protein 7.3 gm/dl (6.4-8.2) Albumin 3.0 gm/dl (3.4-5.0) Globulin 4.3 gm/dl (2.5-4.0) Albumin/Globulin Ratio 0.7 (0.9-2) Thyroid Stimulating Hormone (TSH) 0.495 uIu/ml (0.300-4.500) Free Thyroxine 0.83 ng/dl (0.80-1.60) Bedside Lactic Acid Venous 1.53 mmol/L (0.90-1.70) Urine Color YELLOW Urine Appearance CLOUDY (CLEAR) Urine pH 5.5 (4.5-7.5) Urine Specific [place] 1.017 (1.000-1.030) Urine Protein 2+ (NEG) Urine Glucose (UA) NEG (NEG) Urine Ketones NEG (NEG) Urine Occult Blood 2+ (NEG) Urine Nitrite NEG (NEG) Urine Bilirubin NEG (NEG) Urine Urobilinogen NEG (NEG) Urine Leukocyte Esterase MODERATE (NEG) Urine WBC (Auto) >30 /hpf (0-5) Urine RBC (Auto) 10-30 /hpf (0-4) Urine Hyaline Casts (Auto) 5-10 /lpf (0-5) Urine Epithelial Cells (Auto) 0-5 /lpf (0-5) Urine Bacteria (Auto) 4+ (NEG) Micro Results: Item Value Date Time Urine Culture Received 04/11/171926 Urine,Catheterized Pending Blood Culture Received 04/11/171852 Blood Pending Blood Culture Received 04/11/171849 Blood Pending Recent Pertinent Medications * 04/12/17: Caspofungin 70mg IV x 1, ID consult pending Assessment & Plan VANC-IV: ordered as EMPIRIC 48 hour, may not need Vanc level unless continued? * Estimated p'kinetics: Vd~0.7L/kg, Ke~0.0384hr-1, t1/2~18 hours * Modified Loading dose: VANC 1 gram IV x 1 in ED. Started Maintenance dose early as VANC 1500mg (12mg/kg) IV every 24 hours * Goal trough level estimate: between 15 - 20 mcg/mL. * VANC trough level has been ordered prior to 04/14/17 @ 0200 dose. ZOSYN-IV: 3.375grams IV x 1, then 3.375 grams IV CI every 8 hours for est GFR> 40mL/min. Pharmacy will continue to follow and will adjust dose/frequency as necessary. Thank you
[2017-04-12] MEDS: ALBUT/IPRATROP 3MG/0.5MG NEB 3 ML VIAL INH SCH ×4 (07:16→20:00)
[2017-04-12] MEDS: FLUTICASONE HFA 220 MCG INHALER INH SCH ×2 (08:00→20:47)
[2017-04-12] MEDS: FUROSEMIDE 20 MG TAB PO SCH ×2 (08:01→20:47)
[2017-04-12] MEDS: TAMSULOSIN HCL 0.4 MG CAP PO SCH (08:01)
[2017-04-12] MEDS: SODIUM CHLORIDE 0.65% NA SOLN 45 ML (OCEAN) SCH ×2 (08:01→20:48)
[2017-04-12] MEDS: FLUTICASONE PROPIONATE NA SPR 16 GM BTL SCH ×2 (08:02→21:00)
[2017-04-12] MEDS: INSULIN ASPART 100 UNITS/ML 3 ML PEN SC SCH ×4 (08:11→21:01)
[2017-04-12] MEDS ORDERED: VANCOMYCIN CONSULT ACTIVE PRN (08:15)
--- NOTE | 2017-04-12 08:29 | Pharmacy Progress Note ---
Glycemic Control Intl Consult Date of Service Apr 12, 2017. Scope Glycemic Pharmacist consulted by Dr Myrick on 04/12/17 for glycemic control and to write orders per [facility] inpatient glycemic control protocol Objective Weight (Kilograms): 130.900 Accuchecks BSG (last 24hrs): Test 04/11/17 18:53 04/12/17 07:55 04/12/17 07:56 Random Glucose 126 mg/dl (70-99) Bedside Glucose 122 mg/dl (70-99) Laboratory Data (last 24hrs) Test 04/11/17 18:53 04/12/17 07:56 Anion Gap 9.0 mmol/L BUN/Creatinine Ratio 21.5 Blood Urea Nitrogen 41 mg/dl Creatinine 1.90 mg/dl Potassium Level 4.2 mmol/L Sodium Level 139 mmol/L White Blood Count 11.70 K/uL Red Blood Count 3.61 M/uL Hemoglobin 10.5 g/dL Hematocrit 32.9 % Mean Corpuscular Volume 91.1 fL Mean Corpuscular Hemoglobin 29.1 pg Mean Corpuscular Hemoglobin Concent 31.9 g/dl Platelet Count 204 K/uL Mean Platelet Volume 9.0 fL Neutrophils (%) (Auto) 86.7 % Lymphocytes (%) (Auto) 3.3 % Monocytes (%) (Auto) 8.4 % Eosinophils (%) (Auto) 1.1 % Basophils (%) (Auto) 0.2 % Neutrophils # (Auto) 10.14 K/uL Lymphocytes # (Auto) 0.39 K/uL Monocytes # (Auto) 0.98 K/uL Eosinophils # (Auto) 0.13 K/uL Basophils # (Auto) 0.02 K/uL HbA1c 7% on 03/29/17 Recent Pertinent Medications Outpatient Anti-diabetic Regimen: * Humalog 75/25 Pre-mixed Insulin 20 units SQ BIDM Risk Factors for Insulin Resistance: * Infection * Diet Assessment & Plan ASSESSMENT: * 81yo T2DM male with well controlled diabetes per recent A1c * Outpatient regimen is premixed basal/prandial insulin of NovoLog 75/32 mix insulin. * Pre-mixed insulin is difficult to titrate since it is already in a fixed distribution of basal:prandial insulin. Continuing pre-mixed insulin for admission typically lead to hypoglycemia d/t changing PO status but rapid acting insulin is unable to be held. * Home regimen will be held for admission per pharmacy consult. Will utilize recommended regimen of SQ basal bolus insulin regimen with Levemir + NovoLog (CF +CR) * Pt received Levemir instead of Lantus during 03/20/17 admission and tolerated well. Levemir has a slightly shorter duration of action as compared to Lantus, therefore, using Levemir in house (instead of Lantus) will help minimize double insulin coverage when transitioning back to outpatient regimen. * Pt uses ~40 units of insulin as an outpatient with adequate control. Will continue this total daily dose but re-distribute dosing to 50% basal: 50% prandial regimen to help prevent hypo when PO intake changes. * ADA & AACE recommend a goal blood sugar range 140-180 mg/dl for the majority of critically ill & non-critically ill patients. However, more stringent targets may be selected in individual cases. Will utilize more stringent goal range of 110-140mg/dl for a well controlled diabetic at baseline and to help facilitate infection healing. PLAN FOR INPATIENT GLYCEMIC CONTROL: * Holding outpatient diabetes medication - NovoLog 75/25 premixed insulin * May resume at discharge * Basal insulin * Levemir 10 units SQ BID * Bolus Insulin * NovoLog per scale ACHS or Q6hrs while NPO * Goal Range: Low 110 mg/dL - High 140 mg/dL * Correction Factor: 40 mg/dL/unit * Nutritional / Prandial insulin per carb ratio of 1 unit per 13 grams CHO consumed * Please note that the plan above was derived based on current level of insulin resistance and hospital stress. These recommendations are appropriate for inpatient admission only. Plan of care upon discharge will need to be reassessed to avoid potential outpatient hypo/hyperglycemia. Thank you.
[2017-04-12] MEDS ORDERED: INSULIN DETEMIR FLEXPEN/FLEX TOUCH 100 UNITS/ML 3ML SC SCH ×2 (09:00→21:00)
[2017-04-12] MEDS ORDERED: TIOTROPIUM BROMIDE 5 PUFF/90 MCG INH INH SCH (09:00)
[2017-04-12] MEDS ORDERED: INSULIN LISPRO 75% / 25% SC SCH (09:00)
--- NOTE | 2017-04-12 09:51 | Medical Consult ---
Consultation Date of Consultation: Apr 12, 2017. Attending Physician: Terrance Barrios M.D. Reason for Consultation: MRSA bacteremia History of Present Illness 81-year-old male well known to me from recent hospitalization when he presented with sepsis and possible pneumonia with positive blood cultures for MRSA. Echocardiograms revealed no obvious evidence of endocarditis, and patient was discharged on course of daptomycin which she has been tolerating without apparent difficulty. Over the last several days, patient developed increasing weakness with fever and chills with nausea and anorexia. He noted some new discoloration of his urine, and undergoes intermittent self catheterization. No flank pain. With persistent fever, patient was admitted to the hospital and started empirically on combination of vancomycin and Zosyn. Blood cultures thus far are negative, urine growing gram-negative bacilli. Urinalysis shows significant pyuria. No problems with his PICC line apparent. Past Medical/Surgical History Medical Problems: (1) Bleeding from PICC line Status: Acute (2) Cellulitis of left lower extremity Status: Acute (3) Chronic kidney disease Status: Acute (4) Failure of outpatient treatment Status: Acute (5) Fever Status: Acute (6) Hypoxia Status: Acute (7) Lactic acid acidosis Status: Acute (8) Leukocytosis Status: Acute (9) Leukocytosis Status: Acute (10) Pneumonia Status: Acute (11) Sepsis Status: Acute (12) Sepsis Status: Acute (13) UTI (urinary tract infection) Status: Acute Medical Problems: (1) A-fib (2) Acute kidney injury (3) Anemia (4) ASCVD (arteriosclerotic cardiovascular disease) (5) CHF (congestive heart failure) (6) COPD (chronic obstructive pulmonary disease) (7) Dermatitis, seborrheic (8) Diabetes (9) Elevated alkaline phosphatase level (10) Elevated LFTs (11) Hyperlipidemia (12) Hypertension (13) Hyponatremia (14) Hypotension (15) Hypothyroid (16) Ichthyosis (17) Metabolic acidosis (18) MRSA bacteremia (19) Osteomyelitis of left foot (20) Painful diabetic neuropathy (21) Pulmonary hypertension (22) Secondary hyperparathyroidism (23) Shortness of breath (24) SIRS (systemic inflammatory response syndrome) (25) Sleep apnea (26) Stage 3 chronic kidney disease (27) Urinary retention Surgical Problems: (1) Hx of CABG Family History FH: diabetes mellitus FH: hypertension Social History Smoking Status: Never Smoker Marital Status: Housing Status: lives with significant other Occupation Status: retired Allergies Coded Allergies: Chlorpheniramine (Verified Allergy, Unknown, ., 04/11/17) Phenylpropanolamine (Verified Allergy, Unknown, ., 04/11/17) Current Inpatient Medications Current Inpatient Medications Medications (Trade) Dose Ordered Sig/Sukhwinder Route Start Time Stop Time Status Last Admin Dose Admin Ondansetron HCl (Zofran Inj) 4 mg Q6H PRN IV 04/11/17 21:30 05/11/17 21:29 Miscellaneous (Iv Fluids Completed) 1 ea PRN PRN N/A 04/11/17 22:00 04/11/18 21:59 Albuterol (Ventolin Hfa Inhaler) . QID PRN INH 04/11/17 22:00 05/11/17 21:59 Ergocalciferol (Vitamin D Cap) 50,000 interunit Mo@0900 PO 04/16/17 09:00 05/16/17 08:59 Furosemide (Lasix Tab) 20 mg BID PO 04/12/17 09:00 05/12/17 08:59 04/12/17 08:01 20 MG Acetaminophen/ Hydrocodone Bitart ([place] 10/325 Tab) 1 tab TID PRN PO 04/11/17 22:00 04/25/17 21:59 Levothyroxine Sodium (Synthroid Tab) 100 mcg DAILYBB PO 04/12/17 06:30 05/12/17 06:29 04/12/17 06:38 100 MCG Miconazole Nitrate (Desenex Powder) 1 appln DAILY PRN EXT 04/11/17 22:00 05/11/17 21:59 Tamsulosin HCl (Flomax Cap) 0.4 mg DAILY PO 04/12/17 09:00 05/12/17 08:59 04/12/17 08:01 0.4 MG Warfarin Sodium (Coumadin Tab) 2.5 mg MoFr@1600 PO 04/13/17 16:00 05/13/17 15:59 Warfarin Sodium (Coumadin Tab) 5 mg SuTuWeThSa@1600 PO 04/12/17 16:00 05/12/17 15:59 Fluticasone Propionate (Flovent Hfa 220MCG Inhaler) 2 puffs BID INH 04/12/17 09:00 05/12/17 08:59 04/12/17 08:00 2 PUFFS Fluticasone Propionate (Flonase Nasal [place]) 1 sprays BID NA 04/12/17 09:00 05/12/17 08:59 Sodium Chloride ([place] Nasal [place]) 2 sprays BID NA 04/12/17 09:00 05/12/17 08:59 04/12/17 08:01 2 SPRAYS Piperacillin Sod/ Tazobactam Sod 3.375 gm/Dextrose 115 ml @ 28.75 mls/ hr Q8 IV 04/12/17 06:00 04/26/17 05:59 04/12/17 07:54 28.75 MLS/HR Vancomycin HCl 1500 mg/Sodium Chloride 530 ml @ 200 mls/hr DAILY@0200 IV 04/12/17 02:00 04/14/17 01:59 04/12/17 04:00 200 MLS/HR Piperacillin Sod/ Tazobactam Sod (Consult) 1 ea UD PRN N/A 04/11/17 23:45 05/11/17 23:44 Albuterol/ Ipratropium (Duoneb) 3 ml QIDR INH 04/12/17 08:00 05/12/17 07:59 04/12/17 07:16 3 ML Miscellaneous Information (Consult Glycemic Management Pharmacy) 1 ea UD PRN N/A 04/12/17 06:07 05/12/17 06:06 Insulin Aspart (novoLOG ASPART) SLIDING SCALE ACHS SC 04/12/17 06:30 05/12/17 06:29 04/12/17 08:11 2 UNITS Glucose (Glucose 40% Gel) 15-30 GRAMS 15 GRAMS... UD PRN PO 04/12/17 06:30 05/12/17 06:29 Glucose (Glucose Chew Tab) 4-8 Tablets 4 Tabl... UD PRN PO 04/12/17 06:30 05/12/17 06:29 Dextrose (Dextrose 50% 50ML Syringe) 25-50ML OF 50% DW IV FOR... UD PRN IV 04/12/17 06:30 05/12/17 06:29 Glucagon (Glucagon Inj) 1 mg UD PRN SQ 04/12/17 06:30 05/12/17 06:29 Vancomycin HCl (Consult) 1 ea UD PRN N/A 04/12/17 08:15 05/12/17 08:14 Insulin Detemir (Levemir Flexpen/ FlexTouch) 12 units BID SC 04/12/17 09:00 05/12/17 08:59 Review of Systems Constitutional: + fever, + chills, + weakness Eyes: No problem reported ENT: No problem reported Respiratory: No problem reported Cardiovascular: No problem reported Abdomen: + nausea Musculoskeletal: No problem reported Genitourinary - Male: + problem reported (See HPI) Neurologic: + weakness Psychiatric: No problem reported Endocrine: No problem reported Hematologic / Lymphatic: No problem reported Integumentary: No problem reported Allergic / Immunologic: No problem reported Physical Exam Date Time Temp Pulse Resp B/P (MAP) Pulse Ox O2 Delivery O2 Flow Rate FiO2 04/12/17 07:38 37.0 66 20 136/70 (92) 97 Nasal Cannula 2.0 04/12/17 07:16 62 14 98 Nasal Cannula 2.0 04/12/17 00:30 36.8 62 16 115/67 (83) 91 2.0 04/12/17 00:00 CPAP 04/11/17 22:24 66 24 139/74 95 Nasal Cannula 2.0 04/11/17 21:52 Nasal Cannula 2.0 04/11/17 21:05 65 22 126/60 92 04/11/17 20:01 37.0 04/11/17 19:28 78 22 147/67 95 Nasal Cannula 2.0 04/11/17 19:10 79 04/11/17 19:07 95 Nasal Cannula 2.0 04/11/17 19:01 89 Room Air 04/11/17 18:21 37.7 88 18 163/74 94 Room Air General Appearance: WD/WN, no apparent distress Head: normocephalic, atraumatic Eyes: normal inspection, EOMI, sclerae normal ENT: normal ENT inspection, pharynx normal Neck: supple, no adenopathy, thyroid normal Respiratory/Chest: chest non-tender, lungs clear, normal breath sounds, no respiratory distress Cardiovascular: regular rate, rhythm, no gallop, no murmur Abdomen/GI: normal bowel sounds, non tender, soft, no organomegaly Back: normal inspection, no CVA tenderness Extremities/Musculoskelatal: no calf tenderness, non-tender Neurologic/Psych: alert, oriented x 3 Skin: normal color, warm/dry, no rash, + pertinent finding (PICC line site okay ) Lymphatic: no adenopathy Laboratory Results Date/Time Source Procedure Growth Status 04/11/17 18:53 Blood Blood Culture Pending Received 04/11/17 18:50 Blood Blood Culture Pending Received 04/11/17 19:27 Urine,Catheterized Urine Culture - Preliminary Gram Negative Bacilli Resulted Last 24 Hours Test 04/11/17 18:53 04/11/17 19:03 04/11/17 19:27 04/12/17 07:55 White Blood Count 11.70 K/uL Red Blood Count 3.61 M/uL Hemoglobin 10.5 g/dL Hematocrit 32.9 % Mean Corpuscular Volume 91.1 fL Mean Corpuscular Hemoglobin 29.1 pg Mean Corpuscular Hemoglobin Concent 31.9 g/dl Platelet Count 204 K/uL Mean Platelet Volume 9.0 fL Neutrophils (%) (Auto) 86.7 % Lymphocytes (%) (Auto) 3.3 % Monocytes (%) (Auto) 8.4 % Eosinophils (%) (Auto) 1.1 % Basophils (%) (Auto) 0.2 % Neutrophils # (Auto) 10.14 K/uL Lymphocytes # (Auto) 0.39 K/uL Monocytes # (Auto) 0.98 K/uL Eosinophils # (Auto) 0.13 K/uL Basophils # (Auto) 0.02 K/uL RDW Standard Deviation 68.1 fL RDW Coefficient of Variation 20.6 % Immature Granulocyte % (Auto) 0.3 % Immature Granulocyte # (Auto) 0.04 K/uL Anisocytosis PRESENT Prothrombin Time 34.1 SECONDS Prothromb Time International Ratio 3.0 Activated Partial Thromboplast Time 49.9 SECONDS Partial Thromboplastin Ratio 1.9 Sodium Level 139 mmol/L Potassium Level 4.2 mmol/L Chloride Level 105 mmol/L Carbon Dioxide Level 25 mmol/L Anion Gap 9.0 mmol/L Blood Urea Nitrogen 41 mg/dl Creatinine 1.90 mg/dl Est Creatinine Clear Calc Drug Dose 40.9 ml/min Estimated GFR () 37.5 Estimated GFR (Non- 32.3 BUN/Creatinine Ratio 21.5 Random Glucose 126 mg/dl Calcium Level 8.8 mg/dl Magnesium Level 2.2 mg/dl Total Bilirubin 1.7 mg/dl Aspartate Amino Transf (AST/SGOT) 63 U/L Alanine Aminotransferase (ALT/SGPT) 41 U/L Alkaline Phosphatase 943 U/L Total Protein 7.3 gm/dl Albumin 3.0 gm/dl Globulin 4.3 gm/dl Albumin/Globulin Ratio 0.7 Thyroid Stimulating Hormone (TSH) 0.495 uIu/ml Free Thyroxine 0.83 ng/dl Bedside Lactic Acid Venous 1.53 mmol/L Urine Color YELLOW Urine Appearance CLOUDY Urine pH 5.5 Urine Specific [place] 1.017 Urine Protein 2+ Urine Glucose (UA) NEG Urine Ketones NEG Urine Occult Blood 2+ Urine Nitrite NEG Urine Bilirubin NEG Urine Urobilinogen NEG Urine Leukocyte Esterase MODERATE Urine WBC (Auto) >30 /hpf Urine RBC (Auto) 10-30 /hpf Urine Hyaline Casts (Auto) 5-10 /lpf Urine Epithelial Cells (Auto) 0-5 /lpf Urine Bacteria (Auto) 4+ Bedside Glucose 122 mg/dl Test 04/12/17 07:56 CHEST ONE VIEW PORTABLE CLINICAL HISTORY: Sepsis. COMPARISON STUDY: Chest radiograph April 01, 2017. FINDINGS: Postoperative findings involving the anterior chest wall are noted. A left PICC is noted. The tip is likely within the SVC. No pneumothorax or pleural effusion is present. Cardiomegaly is unchanged. There is no evidence of pulmonary edema. There is no consolidation to suggest pneumonia. IMPRESSION: No acute cardiopulmonary findings. No change in appearance of the chest. Assessment & Plan 81-year-old male with recent MRSA bacteremia on daptomycin therapy, now presents with recurrent fever associated with pyuria and positive urine culture for gram-negative bacilli. Certainly this is the most likely source of his fever, and should be well covered with Zosyn therapy. Does not appear to have obvious infection of PICC line, but certainly we will await blood culture results. Patient should continue on vancomycin for now. Will await final identification sensitivities of urine isolate for antibiotic adjustment. Will follow.
[2017-04-12 11:30] LABS: BASO % 0.2 %; BASO ABS # 0.02 K/uL (0-0.2); EOS % 1.4 %; HEMATOCRIT 30.1 % (42-52); IG% 0.3 %; LYMPH % 4.7 %; LYMPH ABS # 0.52 K/uL (1.2-3.4); MEAN CELL VOLUME 91.8 fL (80-100); MEAN CORPUSCULAR HEMOGLOBIN 28.7 pg (25-34); MEAN CORPUSCULAR HGB CONC 31.2 g/dl (32-36); MEAN PLATELET VOLUME 9.2 fL (7.4-10.4); MONO % 6.4 %; PLATELET COUNT 182 K/uL (130-400); RED BLOOD COUNT 3.28 M/uL (4.7-6.1); WHITE BLOOD COUNT 10.98 K/uL (4.8-10.8)
[2017-04-12 11:47] LABS: INR 2.5 (0.9-1.1); PROTHROMBIN TIME (PATIENT) 27.7 SECONDS (9.0-12.0)
[2017-04-12 12:06] LABS: ALB/GLOB RATIO 0.7 (0.9-2); CALCIUM 8.3 mg/dl (8.5-10.1); CREATININE 1.7 mg/dl (0.60-1.40)
[2017-04-12 12:10] LABS: ANISOCYTOSIS PRESENT; COMPLETE YES
--- NOTE | 2017-04-12 13:51 | Pharmacy Progress Note ---
Pharmacy Antibiotic Consult Date of Service: Apr 12, 2017. Pharmacy Dosing Scope Pharmacy is consulted to initiate vancomycin/zosyn IV dosing therapy, order appropriate labs and adjust drug dose/frequency. Subjective The patient is a 81 year old male admitted on Apr 12, 2017 at 09:57. Objective Height (Feet): 5 Height (Inches): 9.00 Weight (Kilograms): 130.900 Lab Results (24hrs): Test 04/11/17 18:53 04/11/17 19:03 04/11/17 19:27 04/12/17 07:55 White Blood Count 11.70 K/uL (4.8-10.8) Red Blood Count 3.61 M/uL (4.7-6.1) Hemoglobin 10.5 g/dL (14.0-18.0) Hematocrit 32.9 % (42-52) Mean Corpuscular Volume 91.1 fL (80-100) Mean Corpuscular Hemoglobin 29.1 pg (25-34) Mean Corpuscular Hemoglobin Concent 31.9 g/dl (32-36) Platelet Count 204 K/uL (130-400) Mean Platelet Volume 9.0 fL (7.4-10.4) Neutrophils (%) (Auto) 86.7 % Lymphocytes (%) (Auto) 3.3 % Monocytes (%) (Auto) 8.4 % Eosinophils (%) (Auto) 1.1 % Basophils (%) (Auto) 0.2 % Neutrophils # (Auto) 10.14 K/uL (1.4-6.5) Lymphocytes # (Auto) 0.39 K/uL (1.2-3.4) Monocytes # (Auto) 0.98 K/uL (0.11-0.59) Eosinophils # (Auto) 0.13 K/uL (0-0.5) Basophils # (Auto) 0.02 K/uL (0-0.2) RDW Standard Deviation 68.1 fL (36.4-46.3) RDW Coefficient of Variation 20.6 % (11.5-14.5) Immature Granulocyte % (Auto) 0.3 % Immature Granulocyte # (Auto) 0.04 K/uL (0.00-0.02) Anisocytosis PRESENT Prothrombin Time 34.1 SECONDS (9.0-12.0) Prothromb Time International Ratio 3.0 (0.9-1.1) Activated Partial Thromboplast Time 49.9 SECONDS (21.0-31.0) Partial Thromboplastin Ratio 1.9 Sodium Level 139 mmol/L (136-145) Potassium Level 4.2 mmol/L (3.5-5.1) Chloride Level 105 mmol/L (98-107) Carbon Dioxide Level 25 mmol/L (21-32) Anion Gap 9.0 mmol/L (3-11) Blood Urea Nitrogen 41 mg/dl (7-18) Creatinine 1.90 mg/dl (0.60-1.40) Est Creatinine Clear Calc Drug Dose 40.9 ml/min Estimated GFR () 37.5 Estimated GFR (Non- 32.3 BUN/Creatinine Ratio 21.5 (10-20) Random Glucose 126 mg/dl (70-99) Calcium Level 8.8 mg/dl (8.5-10.1) Magnesium Level 2.2 mg/dl (1.8-2.4) Total Bilirubin 1.7 mg/dl (0.2-1) Aspartate Amino Transf (AST/SGOT) 63 U/L (15-37) Alanine Aminotransferase (ALT/SGPT) 41 U/L (12-78) Alkaline Phosphatase 943 U/L (45-117) Total Protein 7.3 gm/dl (6.4-8.2) Albumin 3.0 gm/dl (3.4-5.0) Globulin 4.3 gm/dl (2.5-4.0) Albumin/Globulin Ratio 0.7 (0.9-2) Thyroid Stimulating Hormone (TSH) 0.495 uIu/ml (0.300-4.500) Free Thyroxine 0.83 ng/dl (0.80-1.60) Bedside Lactic Acid Venous 1.53 mmol/L (0.90-1.70) Urine Color YELLOW Urine Appearance CLOUDY (CLEAR) Urine pH 5.5 (4.5-7.5) Urine Specific [place] 1.017 (1.000-1.030) Urine Protein 2+ (NEG) Urine Glucose (UA) NEG (NEG) Urine Ketones NEG (NEG) Urine Occult Blood 2+ (NEG) Urine Nitrite NEG (NEG) Urine Bilirubin NEG (NEG) Urine Urobilinogen NEG (NEG) Urine Leukocyte Esterase MODERATE (NEG) Urine WBC (Auto) >30 /hpf (0-5) Urine RBC (Auto) 10-30 /hpf (0-4) Urine Hyaline Casts (Auto) 5-10 /lpf (0-5) Urine Epithelial Cells (Auto) 0-5 /lpf (0-5) Urine Bacteria (Auto) 4+ (NEG) Bedside Glucose 122 mg/dl (70-99) Test 04/12/17 10:49 04/12/17 11:14 White Blood Count 10.98 K/uL (4.8-10.8) Red Blood Count 3.28 M/uL (4.7-6.1) Hemoglobin 9.4 g/dL (14.0-18.0) Hematocrit 30.1 % (42-52) Mean Corpuscular Volume 91.8 fL (80-100) Mean Corpuscular Hemoglobin 28.7 pg (25-34) Mean Corpuscular Hemoglobin Concent 31.2 g/dl (32-36) Platelet Count 182 K/uL (130-400) Mean Platelet Volume 9.2 fL (7.4-10.4) Neutrophils (%) (Auto) 87.0 % Lymphocytes (%) (Auto) 4.7 % Monocytes (%) (Auto) 6.4 % Eosinophils (%) (Auto) 1.4 % Basophils (%) (Auto) 0.2 % Neutrophils # (Auto) 9.56 K/uL (1.4-6.5) Lymphocytes # (Auto) 0.52 K/uL (1.2-3.4) Monocytes # (Auto) 0.70 K/uL (0.11-0.59) Eosinophils # (Auto) 0.15 K/uL (0-0.5) Basophils # (Auto) 0.02 K/uL (0-0.2) RDW Standard Deviation 69.5 fL (36.4-46.3) RDW Coefficient of Variation 20.8 % (11.5-14.5) Immature Granulocyte % (Auto) 0.3 % Immature Granulocyte # (Auto) 0.03 K/uL (0.00-0.02) Anisocytosis PRESENT Prothrombin Time 27.7 SECONDS (9.0-12.0) Prothromb Time International Ratio 2.5 (0.9-1.1) Sodium Level 139 mmol/L (136-145) Potassium Level 4.0 mmol/L (3.5-5.1) Chloride Level 108 mmol/L (98-107) Carbon Dioxide Level 24 mmol/L (21-32) Anion Gap 7.0 mmol/L (3-11) Blood Urea Nitrogen 37 mg/dl (7-18) Creatinine 1.70 mg/dl (0.60-1.40) Est Creatinine Clear Calc Drug Dose 45.7 ml/min Estimated GFR () 42.9 Estimated GFR (Non- 37.0 BUN/Creatinine Ratio 22.0 (10-20) Random Glucose 157 mg/dl (70-99) Calcium Level 8.3 mg/dl (8.5-10.1) Total Bilirubin 1.9 mg/dl (0.2-1) Aspartate Amino Transf (AST/SGOT) 42 U/L (15-37) Alanine Aminotransferase (ALT/SGPT) 32 U/L (12-78) Alkaline Phosphatase 864 U/L (45-117) Total Protein 6.3 gm/dl (6.4-8.2) Albumin 2.5 gm/dl (3.4-5.0) Globulin 3.8 gm/dl (2.5-4.0) Albumin/Globulin Ratio 0.7 (0.9-2) Bedside Glucose 151 mg/dl (70-99) Assessment & Plan Patient started on vancomycin and zosyn. Admitted with recent MRSA bacteremia and had been on daptomycin. Presented with recurrent fever and now positive urine culture for Gm negative bacilli. ID is consulted to follow the patient. Vancomycin: * started on MD of vancomycin 1500 mg (~12 mg/kg) iv q 24 hrs to achieve an estimated trough ~15-20 mcg/ml (goal for bacteremia) * Estimated kinetics: t1/2~17 hrs, ke~0.04 hr-1, CrCl 45 ml/min * Dosing less aggressive due to elevated BMI (BMI>35 kg/m2) and the risk of accumulation; had also been therapeutic on this dose on prior admission * Plan to obtain a trough prior to the 0200 dose on 04/14 to ensure therapeutic; note this is before steady state, but want to ensure therapeutic Zosyn: * dosing changed to 4.5 gm iv q 8 hrs (dosing appropriate for pts with BMI>35 kg /m2) Pharmacy will continue to follow and will adjust dose/frequency as necessary. Thank you
--- NOTE | 2017-04-12 14:40 | Family Medicine Progress Note ---
Progress Note Date of Service Apr 12, 2017. Subjective Pt evaluation today including: conversation w/ patient, physical exam, chart review, lab review, review of studies Pain: No pain reported this morning Voiding: voiding difficulty (still having dysuria but states he is voiding well and not requiring straight catheterization at this time) Patient is comfortably resting in bed this morning with no acute complaints overnight. Patient states that he is feeling better today after starting antibiotic treatment, but is still having minimal burning on urination. He states that he is able to urinate much easier. He also states that he recently finished an 8 day course of ciprofloxacin for urinary tract infection symptoms. Over the last 7 days he states he was having fevers and chills and feeling more weak than normal. At this time he says he is resting comfortably in bed and is feeling much better. Constitutional: No fever, No chills Respiratory: No cough, No wheezing, No shortness of breath Cardiovascular: No chest pain, No palpitations Abdomen: No pain, No nausea, No vomiting, No diarrhea, No constipation Male : + dysuria, No incontinence, No slowing stream, No hematuria Medications Current Inpatient Medications Medications (Trade) Dose Ordered Sig/Sukhwinder Route Start Time Stop Time Status Last Admin Dose Admin Ondansetron HCl (Zofran Inj) 4 mg Q6H PRN IV 04/11/17 21:30 05/11/17 21:29 Miscellaneous (Iv Fluids Completed) 1 ea PRN PRN N/A 04/11/17 22:00 04/11/18 21:59 Albuterol (Ventolin Hfa Inhaler) . QID PRN INH 04/11/17 22:00 05/11/17 21:59 Ergocalciferol (Vitamin D Cap) 50,000 interunit Mo@0900 PO 04/16/17 09:00 05/16/17 08:59 Furosemide (Lasix Tab) 20 mg BID PO 04/12/17 09:00 05/12/17 08:59 04/12/17 08:01 20 MG Acetaminophen/ Hydrocodone Bitart ([place] 10/325 Tab) 1 tab TID PRN PO 04/11/17 22:00 04/25/17 21:59 Levothyroxine Sodium (Synthroid Tab) 100 mcg DAILYBB PO 04/12/17 06:30 8/26/17 06:29 04/12/17 06:38 100 MCG Miconazole Nitrate (Desenex Powder) 1 appln DAILY PRN EXT 04/11/17 22:00 05/11/17 21:59 Tamsulosin HCl (Flomax Cap) 0.4 mg DAILY PO 04/12/17 09:00 05/12/17 08:59 04/12/17 08:01 0.4 MG Warfarin Sodium (Coumadin Tab) 2.5 mg MoFr@1600 PO 04/13/17 16:00 05/13/17 15:59 Warfarin Sodium (Coumadin Tab) 5 mg SuTuWeThSa@1600 PO 04/12/17 16:00 05/12/17 15:59 Fluticasone Propionate (Flovent Hfa 220MCG Inhaler) 2 puffs BID INH 04/12/17 09:00 05/12/17 08:59 04/12/17 08:00 2 PUFFS Fluticasone Propionate (Flonase Nasal [place]) 1 sprays BID NA 04/12/17 09:00 05/12/17 08:59 Sodium Chloride ([place] Nasal [place]) 2 sprays BID NA 04/12/17 09:00 05/12/17 08:59 04/12/17 08:01 2 SPRAYS Vancomycin HCl 1500 mg/Sodium Chloride 530 ml @ 200 mls/hr DAILY@0200 IV 04/12/17 02:00 04/26/17 01:59 04/12/17 04:00 200 MLS/HR Piperacillin Sod/ Tazobactam Sod (Consult) 1 ea UD PRN N/A 04/11/17 23:45 05/11/17 23:44 Albuterol/ Ipratropium (Duoneb) 3 ml QIDR INH 04/12/17 08:00 05/12/17 07:59 04/12/17 11:30 3 ML Miscellaneous Information (Consult Glycemic Management Pharmacy) 1 ea UD PRN N/A 04/12/17 06:07 05/12/17 06:06 Insulin Aspart (novoLOG ASPART) SLIDING SCALE ACHS SC 04/12/17 06:30 05/12/17 06:29 04/12/17 12:48 4 UNITS Glucose (Glucose 40% Gel) 15-30 GRAMS 15 GRAMS... UD PRN PO 04/12/17 06:30 05/12/17 06:29 Glucose (Glucose Chew Tab) 4-8 Tablets 4 Tabl... UD PRN PO 04/12/17 06:30 05/12/17 06:29 Dextrose (Dextrose 50% 50ML Syringe) 25-50ML OF 50% DW IV FOR... UD PRN IV 04/12/17 06:30 05/12/17 06:29 Glucagon (Glucagon Inj) 1 mg UD PRN SQ 04/12/17 06:30 05/12/17 06:29 Vancomycin HCl (Consult) 1 ea UD PRN N/A 04/12/17 08:15 05/12/17 08:14 Insulin Detemir (Levemir Flexpen/ FlexTouch) 10 units BID SC 04/12/17 21:00 05/12/17 20:59 Piperacillin Sod/ Tazobactam Sod 4.5 gm/Dextrose 120 ml @ 30 mls/hr Q8H IV 04/12/17 16:00 04/26/17 15:59 Objective Vital Signs Date Time Temp Pulse Resp B/P (MAP) Pulse Ox O2 Delivery O2 Flow Rate FiO2 04/12/17 11:30 53 16 97 Nasal Cannula 2.0 04/12/17 08:00 97 Nasal Cannula 2.0 04/12/17 07:38 37.0 66 20 136/70 (92) 97 Nasal Cannula 2.0 04/12/17 07:16 62 14 98 Nasal Cannula 2.0 04/12/17 00:30 36.8 62 16 115/67 (83) 91 2.0 04/12/17 00:00 CPAP 04/11/17 22:24 66 24 139/74 95 Nasal Cannula 2.0 04/11/17 21:52 Nasal Cannula 2.0 04/11/17 21:05 65 22 126/60 92 04/11/17 20:01 37.0 04/11/17 19:28 78 22 147/67 95 Nasal Cannula 2.0 04/11/17 19:10 79 04/11/17 19:07 95 Nasal Cannula 2.0 04/11/17 19:01 89 Room Air 04/11/17 18:21 37.7 88 18 163/74 94 Room Air Physical Exam General Appearance: WD/WN, no apparent distress Eyes: normal inspection, sclerae normal Respiratory/Chest: chest non-tender, lungs clear, normal breath sounds Cardiovascular: no edema, + systolic murmur, + irregularly irregular Abdomen: normal bowel sounds, non tender, soft Neurologic/Psychiatric: alert, normal mood/affect, oriented x 3 Laboratory Results Results Past 24 Hours Test 04/11/17 18:53 04/11/17 19:03 04/11/17 19:27 04/12/17 07:55 Range/Units White Blood Count 11.70 4.8-10.8 K/uL Red Blood Count 3.61 4.7-6.1 M/uL Hemoglobin 10.5 14.0-18.0 g/dL Hematocrit 32.9 42-52 % Mean Corpuscular Volume 91.1 80-100 fL Mean Corpuscular Hemoglobin 29.1 25-34 pg Mean Corpuscular Hemoglobin Concent 31.9 32-36 g/dl Platelet Count 204 130-400 K/uL Mean Platelet Volume 9.0 7.4-10.4 fL Neutrophils (%) (Auto) 86.7 % Lymphocytes (%) (Auto) 3.3 % Monocytes (%) (Auto) 8.4 % Eosinophils (%) (Auto) 1.1 % Basophils (%) (Auto) 0.2 % Neutrophils # (Auto) 10.14 1.4-6.5 K/uL Lymphocytes # (Auto) 0.39 1.2-3.4 K/uL Monocytes # (Auto) 0.98 0.11-0.59 K/uL Eosinophils # (Auto) 0.13 0-0.5 K/uL Basophils # (Auto) 0.02 0-0.2 K/uL RDW Standard Deviation 68.1 36.4-46.3 fL RDW Coefficient of Variation 20.6 11.5-14.5 % Immature Granulocyte % (Auto) 0.3 % Immature Granulocyte # (Auto) 0.04 0.00-0.02 K/uL Anisocytosis PRESENT Prothrombin Time 34.1 9.0-12.0 SECONDS Prothromb Time International Ratio 3.0 0.9-1.1 Activated Partial Thromboplast Time 49.9 21.0-31.0 SECONDS Partial Thromboplastin Ratio 1.9 Sodium Level 139 136-145 mmol/L Potassium Level 4.2 3.5-5.1 mmol/L Chloride Level 105 98-107 mmol/L Carbon Dioxide Level 25 21-32 mmol/L Anion Gap 9.0 3-11 mmol/L Blood Urea Nitrogen 41 7-18 mg/dl Creatinine 1.90 0.60-1.40 mg/dl Est Creatinine Clear Calc Drug Dose 40.9 ml/min Estimated GFR () 37.5 Estimated GFR (Non- 32.3 BUN/Creatinine Ratio 21.5 10-20 Random Glucose 126 70-99 mg/dl Calcium Level 8.8 8.5-10.1 mg/dl Magnesium Level 2.2 1.8-2.4 mg/dl Total Bilirubin 1.7 0.2-1 mg/dl Aspartate Amino Transf (AST/SGOT) 63 15-37 U/L Alanine Aminotransferase (ALT/SGPT) 41 12-78 U/L Alkaline Phosphatase 943 45-117 U/L Total Protein 7.3 6.4-8.2 gm/dl Albumin 3.0 3.4-5.0 gm/dl Globulin 4.3 2.5-4.0 gm/dl Albumin/Globulin Ratio 0.7 0.9-2 Thyroid Stimulating Hormone (TSH) 0.495 0.300-4.500 uIu/ml Free Thyroxine 0.83 0.80-1.60 ng/dl Bedside Lactic Acid Venous 1.53 0.90-1.70 mmol/L Urine Color YELLOW Urine Appearance CLOUDY CLEAR Urine pH 5.5 4.5-7.5 Urine Specific [place] 1.017 1.000-1.030 Urine Protein 2+ NEG Urine Glucose (UA) NEG NEG Urine Ketones NEG NEG Urine Occult Blood 2+ NEG Urine Nitrite NEG NEG Urine Bilirubin NEG NEG Urine Urobilinogen NEG NEG Urine Leukocyte Esterase MODERATE NEG Urine WBC (Auto) >30 0-5 /hpf Urine RBC (Auto) 10-30 0-4 /hpf Urine Hyaline Casts (Auto) 5-10 0-5 /lpf Urine Epithelial Cells (Auto) 0-5 0-5 /lpf Urine Bacteria (Auto) 4+ NEG Bedside Glucose 122 70-99 mg/dl Test 04/12/17 10:49 04/12/17 11:14 Range/Units White Blood Count 10.98 4.8-10.8 K/uL Red Blood Count 3.28 4.7-6.1 M/uL Hemoglobin 9.4 14.0-18.0 g/dL Hematocrit 30.1 42-52 % Mean Corpuscular Volume 91.8 80-100 fL Mean Corpuscular Hemoglobin 28.7 25-34 pg Mean Corpuscular Hemoglobin Concent 31.2 32-36 g/dl Platelet Count 182 130-400 K/uL Mean Platelet Volume 9.2 7.4-10.4 fL Neutrophils (%) (Auto) 87.0 % Lymphocytes (%) (Auto) 4.7 % Monocytes (%) (Auto) 6.4 % Eosinophils (%) (Auto) 1.4 % Basophils (%) (Auto) 0.2 % Neutrophils # (Auto) 9.56 1.4-6.5 K/uL Lymphocytes # (Auto) 0.52 1.2-3.4 K/uL Monocytes # (Auto) 0.70 0.11-0.59 K/uL Eosinophils # (Auto) 0.15 0-0.5 K/uL Basophils # (Auto) 0.02 0-0.2 K/uL RDW Standard Deviation 69.5 36.4-46.3 fL RDW Coefficient of Variation 20.8 11.5-14.5 % Immature Granulocyte % (Auto) 0.3 % Immature Granulocyte # (Auto) 0.03 0.00-0.02 K/uL Anisocytosis PRESENT Prothrombin Time 27.7 9.0-12.0 SECONDS Prothromb Time International Ratio 2.5 0.9-1.1 Sodium Level 139 136-145 mmol/L Potassium Level 4.0 3.5-5.1 mmol/L Chloride Level 108 98-107 mmol/L Carbon Dioxide Level 24 21-32 mmol/L Anion Gap 7.0 3-11 mmol/L Blood Urea Nitrogen 37 7-18 mg/dl Creatinine 1.70 0.60-1.40 mg/dl Est Creatinine Clear Calc Drug Dose 45.7 ml/min Estimated GFR () 42.9 Estimated GFR (Non- 37.0 BUN/Creatinine Ratio 22.0 10-20 Random Glucose 157 70-99 mg/dl Calcium Level 8.3 8.5-10.1 mg/dl Total Bilirubin 1.9 0.2-1 mg/dl Aspartate Amino Transf (AST/SGOT) 42 15-37 U/L Alanine Aminotransferase (ALT/SGPT) 32 12-78 U/L Alkaline Phosphatase 864 45-117 U/L Total Protein 6.3 6.4-8.2 gm/dl Albumin 2.5 3.4-5.0 gm/dl Globulin 3.8 2.5-4.0 gm/dl Albumin/Globulin Ratio 0.7 0.9-2 Bedside Glucose 151 70-99 mg/dl Microbiology Results 04/11/17 Blood Culture, Received Pending 04/11/17 Blood Culture, Received Pending 04/11/17 Urine Culture - Preliminary, Resulted Gram Negative Bacilli Assessment and Plan The patient is an 81-year-old male with a past medical history of atrial fibrillation, biprosthetic heart valves, urinary tract infection, that was recently hospitalized for sepsis and pneumonia with MRSA positive cultures and was discharged home on IV daptomycin. The patient presented back to the emergency department yesterday with a 7 day history of fevers, chills, and weakness. The patient states that he had urine discoloration in addition to cloudiness of urine. After discharge the patient was self cathing which she states that he was not performing before his most recent hospitalization. Urinalysis revealed pyuria with 2+ blood, greater than 30 white blood cells, moderate leukocyte esterase, and bacteria 4+. On admission the patient was started on vancomycin and Zosyn which was approved as well by infectious disease. The patient states that he has significantly improved since starting these most recent antibiotics, with improving dysuria as well as improved ability to urinate without requiring cathing. 1) Urinary Tract Infection - UA: 2+ Blood, >30 WBC, moderate leukocyte esterase, bacteriuria 4+ - Urine Culture: Gram-negative bacilli - Antibiotics: Vancomycin + Zosym - Leukocytosis improving with antibiotic treatment - Blood Cultures Pending - E. Coli UTI on previous admission (pansensitive) treated with Zosyn 2) BPH - Tamsulosin - Not requiring Mckeon or straight catheterization at this time - Continue to monitor urinary function 3) Acute on Chronic kidney injury - CKD stage 3 - Resolved and back to baseline - Back to baseline creatinine of 1.7 4) Transaminitis - Patient has chronic elevation of alkaline phosphatase, AST, and ALT - After receiving IV fluid liver function tests have improved - Holding Statin 5) COPD - Patient unaware if he has been in fact been diagnosed - Fluticase 220 mcg inhaler (Switched from Pulmicort on Admission) - Duonebs QID + Q2H PRN for shortness of breath - Currently on 2L NC but not on oxygen yesterday 6) Atrial Fibrillation - Rate controlled - Warfarin 7) Diabetes Mellitus - Sliding Scale Insulin 8) Hypothyroidism - Synthroid 9) Sleep Apnea - Nocturnal CPAP with 2L Oxygen 10) DVT - Warfarin 11) Code Status - Full Resuscitation Resident Physician Supervision Note: I interviewed and examined the patient. Discussed with Dr. Castellanos and agree with findings and plan as documented in the note. Any exceptions or clarifications are listed here: None Documented By: Bam Blake feeling better. voiding better. urine culture showing growth. all other ROS otherwise negative except for as above vitals noted nad breahting unlabored no pallor or icterus UTI w sepsis - continue current abx pending further growth continue MRSA coverage otherwise as above Resident Tracking Resident Involvement: Resident Care Provided Care Provided: Adult Hospital Medicine
[2017-04-12] MEDS: WARFARIN SOD 5 MG TAB PO SCH (16:01)
[2017-04-12] MEDS: PIPERACILL/TAZOBAC IV 4.5 GM in DEXTROSE 5% 100ML IV SCH (16:01)
[2017-04-13] VITALS (10 sets, daily range): BP systolic 103–138; BP diastolic 54–68; PULSE 52–104; TEMP 36.3–36.5; O2SAT 81–97
[2017-04-13] MEDS: PIPERACILL/TAZOBAC IV 4.5 GM in DEXTROSE 5% 100ML IV SCH ×3 (00:11→18:11)
[2017-04-13] MEDS: VANCOMYCIN INJ 1,500 MG in SODIUM CHLORIDE 0.9% 500ML 500 ML IV SCH (02:15)
[2017-04-13] MEDS: LEVOTHYROXINE 100 MCG TAB PO SCH (06:19)
[2017-04-13] MEDS: ALBUT/IPRATROP 3MG/0.5MG NEB 3 ML VIAL INH SCH ×3 (07:47→15:44)
[2017-04-13] MEDS: FLUTICASONE HFA 220 MCG INHALER INH SCH ×2 (08:17→20:50)
[2017-04-13] MEDS: SODIUM CHLORIDE 0.65% NA SOLN 45 ML (OCEAN) SCH ×2 (08:18→20:51)
[2017-04-13] MEDS: FLUTICASONE PROPIONATE NA SPR 16 GM BTL SCH ×2 (08:18→20:51)
[2017-04-13] MEDS: FUROSEMIDE 20 MG TAB PO SCH ×2 (08:18→18:16)
[2017-04-13] MEDS: TAMSULOSIN HCL 0.4 MG CAP PO SCH (08:18)
[2017-04-13] MEDS: INSULIN ASPART 100 UNITS/ML 3 ML PEN SC SCH ×4 (08:33→20:51)
[2017-04-13 08:46] LABS: BASO % 0.1 %; BASO ABS # 0.01 K/uL (0-0.2); IG% 0.3 %; LYMPH % 6.3 %; LYMPH ABS # 0.58 K/uL (1.2-3.4); MEAN CELL VOLUME 91.2 fL (80-100); MEAN CORPUSCULAR HEMOGLOBIN 28.5 pg (25-34); MONO % 7.6 %; NEUT % 79.7 %; PLATELET COUNT 198 K/uL (130-400)
[2017-04-13 08:50] LABS: MEAN CORPUSCULAR HGB CONC 31.3 g/dl (32-36)
[2017-04-13 09:16] LABS: COMPLETE YES; HYPOCHROMIA PRESENT; POLYCHROMASIA 1+; TOXIC GRANULATION 1+
[2017-04-13 09:17] LABS: BUN/CREATININE RATIO 19.1 (10-20); CALCIUM 8.4 mg/dl (8.5-10.1); CREATININE 1.8 mg/dl (0.60-1.40); POTASSIUM 4.1 mmol/L (3.5-5.1)
[2017-04-13] MEDS ORDERED: INSULIN DETEMIR FLEXPEN/FLEX TOUCH 100 UNITS/ML 3ML SC SCH ×2 (11:00→16:45)
--- NOTE | 2017-04-13 11:01 | Pharmacy Progress Note ---
Glycemic Control Progress Note Date of Service Apr 13, 2017. Scope Glycemic Pharmacist consulted for glycemic control to write orders per [facility] inpatient glycemic control protocol. Objective Accuchecks BSG (last 24hrs): Test 04/12/17 11:14 04/12/17 16:17 04/12/17 20:13 04/13/17 07:40 Bedside Glucose 151 mg/dl (70-99) 155 mg/dl (70-99) 179 mg/dl (70-99) 98 mg/dl (70-99) Test 04/13/17 08:22 Random Glucose 164 mg/dl (70-99) HbA1c: 7% on 03/29/17 Recent Pertinent Medications Outpatient Anti-diabetic Regimen: * Humalog 75/25 Pre-mixed Insulin 20 units SQ BIDM Risk Factors for Insulin Resistance: * Infection * Diet Outpatient Anti-Diabetic Meds Pre-mixed insulin {both basal and prandial components} Total daily dose ~ 40 units Assessment & Plan ASSESSMENT: * See progress note from 04/12/17 for more background info, in short: * Pt receiving SQ basal bolus insulin regimen for hyperglycemia secondary to baseline DM (outpatient pre-mixed insulin regimen on hold) & stress/infection * Patient is currently receiving an average of 36 units of insulin per day * 22 units of basal insulin * 14 units of prandial/correctional insulin * BSGs ranging 98 - 179 mg/dl over the past 24hrs * Changes needed to insulin regimen: * AM Fasting BSG = 98 mg/dl. This is slightly below goal range for patient based on inpatient targets and co-morbidities. Therefore Basal insulin needs decreased. Pt with large drop in BSG from HS --> AM fasting (BSG 179 --> 98mg/dl ). PM dose of basal insulin may not be needed. Will change from Q12hr to Q24hr dosing of basal insulin and re-assess 04/14. * Post-prandial BSGs are in range therefore no changes needed to CF/CR * Total daily dose = ~40 units --> This dosing is yielding adequate glycemic control PLAN FOR INPATIENT GLYCEMIC CONTROL: * Holding outpatient diabetes medication - NovoLog 75/25 premixed insulin * May resume at discharge as A1c is in goal range with current outpatient regimen * Basal insulin: decrease slightly and change to Q24hr dosing * Levemir 18 units SQ daily in AM * Bolus Insulin: no change * NovoLog per scale ACHS or Q6hrs while NPO * Goal Range: Low 110 mg/dL - High 140 mg/dL * Correction Factor: 40 mg/dL/unit * Nutritional / Prandial insulin per carb ratio of 1 unit per 13 grams CHO consumed * Please note that the plan above was derived based on current level of insulin resistance and hospital stress. These recommendations are appropriate for inpatient admission only. Plan of care upon discharge will need to be reassessed to avoid potential outpatient hypo/hyperglycemia. Thank you.
--- NOTE | 2017-04-13 12:31 | Clinical Documentation Query ---
QUERY 1 OF [address] HAYWOOD, In your clinical opinion is this patient being managed for: ( ) UTI possibly due to self-performed intermittent straight catheterizations ( ) Other explanation of clinical findings (Please Explain) ( ) Unable to determine (Please Define) ( ) Need to Discuss ( ) Not Agree The medical record reflects the following clinical findings, treatment, and risk factors. Clinical Indicators: 81 yo male presenting with fever. Noted to be performing self straight catheterization due to urinary retention. Treatment:IV zosyn, IV fluids, IV vancomcyin, ID consult Risk Factors: straight catheterizations performed by pt, DM QUERY 2 OF 2 The diagnosis of sepsis is noted once in the progress note on 04/12 in the physician supervisory note. For consistency in documentation please indicate if the pt is being treated for sepsis from UTI throughout the progress notes and discharge summary In your clinical opinion is this patient being managed for: ( ) Sepsis with UTI ( ) Other explanation of clinical findings (Please Explain) ( ) Unable to determine (Please Define) ( ) Need to Discuss ( ) Not Agree Please clarify and document your clinical opinion in the progress notes and discharge summary. Terms such as "probable", "suspected", "likely", "questionable", "possible", or "still to be ruled out" are acceptable. IF IN AGREEMENT, YOU MUST DOCUMENT ABOVE DIAGNOSTIC STATEMENT IN DAILY PROGRESS NOTES AND DISCHARGE SUMMARY. This document is not part of the patient's record. Thank You, Alessandra Pink, RN [phone]
--- NOTE | 2017-04-13 12:33 | Clinical Documentation Query ---
CLINICAL DOCUMENTATION QUERY Dr. BAILEY, In your clinical opinion is this patient being managed for: (x ) UTI possibly due to self-performed intermittent straight catheterizations ( ) Other explanation of clinical findings (Please Explain) ( ) Unable to determine (Please Define) ( ) Need to Discuss ( ) Not Agree The medical record reflects the following clinical findings, treatment, and risk factors. Clinical Indicators: 81 yo male presenting with fever. Noted to be performing self straight catheterization due to urinary retention. Treatment:IV zosyn, IV fluids, IV vancomcyin, ID consult Risk Factors: straight catheterizations performed by pt, DM Please clarify and document your clinical opinion in the progress notes and discharge summary. Terms such as "probable", "suspected", "likely", "questionable", "possible", or "still to be ruled out" are acceptable. IF IN AGREEMENT, YOU MUST DOCUMENT ABOVE DIAGNOSTIC STATEMENT IN DAILY PROGRESS NOTES AND DISCHARGE SUMMARY. This document is not part of the patient's record. Thank You, Alessandra Pink RN [phone]
--- NOTE | 2017-04-13 15:21 | Family Medicine Progress Note ---
Progress Note Date of Service Apr 13, 2017. Subjective Pt evaluation today including: conversation w/ patient, physical exam, chart review, lab review, review of studies Pain: No discomfort reported this morning Voiding: voiding difficulty (patioent) Patient is resting comfortably in bed this morning with no acute complaints overnight. The patient states that he got up multiple times last night to urinate, but was having a difficult time producing urine. Overnight he was straight cathed and 900 mL of fluid was produced. He denies any suprapubic discomfort this morning, or any burning with urination. He currently denies any fevers, chills, abdominal pain, or any other acute complaints. Medications Current Inpatient Medications Medications (Trade) Dose Ordered Sig/Sukhwinder Route Start Time Stop Time Status Last Admin Dose Admin Ondansetron HCl (Zofran Inj) 4 mg Q6H PRN IV 04/11/17 21:30 05/11/17 21:29 Miscellaneous (Iv Fluids Completed) 1 ea PRN PRN N/A 04/11/17 22:00 04/11/18 21:59 Albuterol (Ventolin Hfa Inhaler) . QID PRN INH 04/11/17 22:00 05/11/17 21:59 Acetaminophen/ Hydrocodone Bitart ([place] 10/325 Tab) 1 tab TID PRN PO 04/11/17 22:00 04/25/17 21:59 Levothyroxine Sodium (Synthroid Tab) 100 mcg DAILYBB PO 04/12/17 06:30 05/12/17 06:29 04/13/17 06:19 100 MCG Miconazole Nitrate (Desenex Powder) 1 appln DAILY PRN EXT 04/11/17 22:00 05/11/17 21:59 Tamsulosin HCl (Flomax Cap) 0.4 mg DAILY PO 04/12/17 09:00 05/12/17 08:59 04/13/17 08:18 0.4 MG Warfarin Sodium (Coumadin Tab) 2.5 mg MoFr@1600 PO 04/13/17 16:00 05/13/17 15:59 Warfarin Sodium (Coumadin Tab) 5 mg SuTuWeThSa@1600 PO 04/12/17 16:00 05/12/17 15:59 04/12/17 16:01 5 MG Fluticasone Propionate (Flovent Hfa 220MCG Inhaler) 2 puffs BID INH 04/12/17 09:00 05/12/17 08:59 04/13/17 08:17 2 PUFFS Fluticasone Propionate (Flonase Nasal [place]) 1 sprays BID NA 04/12/17 09:00 05/12/17 08:59 Sodium Chloride ([place] Nasal [place]) 2 sprays BID NA 04/12/17 09:00 05/12/17 08:59 04/13/17 08:18 2 SPRAYS Vancomycin HCl 1500 mg/Sodium Chloride 530 ml @ 200 mls/hr DAILY@0200 IV 04/12/17 02:00 04/26/17 01:59 04/13/17 02:15 200 MLS/HR Piperacillin Sod/ Tazobactam Sod (Consult) 1 ea UD PRN N/A 04/11/17 23:45 05/11/17 23:44 Albuterol/ Ipratropium (Duoneb) 3 ml QIDR INH 04/12/17 08:00 05/12/17 07:59 04/13/17 11:23 3 ML Miscellaneous Information (Consult Glycemic Management Pharmacy) 1 ea UD PRN N/A 04/12/17 06:07 05/12/17 06:06 Insulin Aspart (novoLOG ASPART) SLIDING SCALE ACHS SC 04/12/17 06:30 05/12/17 06:29 04/13/17 12:58 4 UNITS Glucose (Glucose 40% Gel) 15-30 GRAMS 15 GRAMS... UD PRN PO 04/12/17 06:30 05/12/17 06:29 Glucose (Glucose Chew Tab) 4-8 Tablets 4 Tabl... UD PRN PO 04/12/17 06:30 05/12/17 06:29 Dextrose (Dextrose 50% 50ML Syringe) 25-50ML OF 50% DW IV FOR... UD PRN IV 04/12/17 06:30 05/12/17 06:29 Glucagon (Glucagon Inj) 1 mg UD PRN SQ 04/12/17 06:30 05/12/17 06:29 Vancomycin HCl (Consult) 1 ea UD PRN N/A 04/12/17 08:15 05/12/17 08:14 Piperacillin Sod/ Tazobactam Sod 4.5 gm/Dextrose 120 ml @ 30 mls/hr Q8H IV 04/12/17 16:00 04/26/17 15:59 04/13/17 08:17 30 MLS/HR Insulin Detemir (Levemir Flexpen/ FlexTouch) 18 units DAILY SC 04/13/17 11:00 05/13/17 10:59 04/13/17 12:59 18 UNITS Heparin Sodium (Porcine) (Heparin 10 Unit/ ml 5 ml Flush) 5 ml PRN PRN FLUSH 04/13/17 09:00 05/13/17 08:59 04/13/17 10:30 5 ML Ergocalciferol (Vitamin D Cap) 50,000 interunit [place]@0900 PO 04/15/17 09:00 05/15/17 08:59 Furosemide (Lasix Tab) 20 mg BID17 PO 04/13/17 17:00 05/13/17 16:59 Objective Vital Signs Date Time Temp Pulse Resp B/P (MAP) Pulse Ox O2 Delivery O2 Flow Rate FiO2 04/13/17 15:00 36.3 65 20 138/61 (86) 91 Room Air 04/13/17 11:24 66 16 92 Room Air 04/13/17 08:00 97 Room Air 04/13/17 07:47 58 16 93 Nasal Cannula 2.0 04/13/17 07:33 36.4 60 20 132/55 (80) 91 BiPAP 1.5 04/13/17 00:25 36.5 58 20 103/54 (70) 90 Room Air 04/13/17 00:00 CPAP 04/12/17 20:46 54 16 92 Nasal Cannula 2.0 04/12/17 16:00 Room Air 04/12/17 15:40 54 16 94 Nasal Cannula 2.0 Physical Exam General Appearance: WD/WN, no apparent distress Eyes: normal inspection, sclerae normal Respiratory/Chest: chest non-tender, lungs clear, normal breath sounds Cardiovascular: regular rate, rhythm, + systolic murmur Abdomen: normal bowel sounds, non tender, soft Neurologic/Psychiatric: alert, normal mood/affect, oriented x 3 Notes: Rectal Exam: No acute tenderness with palpation of the prostate, no nodules palpated Laboratory Results Results Past 24 Hours Test 04/12/17 16:17 04/12/17 20:13 04/13/17 07:40 04/13/17 08:22 Range/Units Bedside Glucose 155 179 98 70-99 mg/dl White Blood Count 9.20 4.8-10.8 K/uL Red Blood Count 3.40 4.7-6.1 M/uL Hemoglobin 9.7 14.0-18.0 g/dL Hematocrit 31.0 42-52 % Mean Corpuscular Volume 91.2 80-100 fL Mean Corpuscular Hemoglobin 28.5 25-34 pg Mean Corpuscular Hemoglobin Concent 31.3 32-36 g/dl Platelet Count 198 130-400 K/uL Mean Platelet Volume 9.0 7.4-10.4 fL Neutrophils (%) (Auto) 79.7 % Lymphocytes (%) (Auto) 6.3 % Monocytes (%) (Auto) 7.6 % Eosinophils (%) (Auto) 6.0 % Basophils (%) (Auto) 0.1 % Neutrophils # (Auto) 7.33 1.4-6.5 K/uL Lymphocytes # (Auto) 0.58 1.2-3.4 K/uL Monocytes # (Auto) 0.70 0.11-0.59 K/uL Eosinophils # (Auto) 0.55 0-0.5 K/uL Basophils # (Auto) 0.01 0-0.2 K/uL RDW Standard Deviation 69.3 36.4-46.3 fL RDW Coefficient of Variation 21.1 11.5-14.5 % Immature Granulocyte % (Auto) 0.3 % Immature Granulocyte # (Auto) 0.03 0.00-0.02 K/uL Toxic Granulation 1+ Polychromasia 1+ Hypochromasia PRESENT Sodium Level 139 136-145 mmol/L Potassium Level 4.1 3.5-5.1 mmol/L Chloride Level 106 98-107 mmol/L Carbon Dioxide Level 25 21-32 mmol/L Anion Gap 8.0 3-11 mmol/L Blood Urea Nitrogen 34 7-18 mg/dl Creatinine 1.80 0.60-1.40 mg/dl Est Creatinine Clear Calc Drug Dose 42.3 ml/min Estimated GFR () 40.0 Estimated GFR (Non- 34.5 BUN/Creatinine Ratio 19.1 10-20 Random Glucose 164 70-99 mg/dl Calcium Level 8.4 8.5-10.1 mg/dl Total Bilirubin 1.3 0.2-1 mg/dl Direct Bilirubin 0.7 0-0.2 mg/dl Aspartate Amino Transf (AST/SGOT) 40 15-37 U/L Alanine Aminotransferase (ALT/SGPT) 31 12-78 U/L Alkaline Phosphatase 843 45-117 U/L Total Protein 6.6 6.4-8.2 gm/dl Albumin 2.5 3.4-5.0 gm/dl Test 04/13/17 11:17 Range/Units Bedside Glucose 123 70-99 mg/dl Assessment and Plan The patient is an 81-year-old male that presented to the emergency department with weakness, fever, and chills, and was found to have a probable urinary tract infection with growth of gram-negative bacilli on urine culture. The patient was previously treated for a UTI with Cipro that completed 8 days ago, and we have currently started the patient on vancomycin and Zosyn. Once our sensitivities on the culture are back we will narrow the antibiotic regimen. The patient has improved substantially while on antibiotics, and denies any burning on urination but is still having some urinary retention. We were concerned that the patient may have an element of prostatitis, but her rectal exam this morning did not reveal any acute tenderness of the prostate on palpation. We will continue to treat with the current antibiotic regimen and infectious disease on board. 1) Urinary Tract Infection - Improving, burning and urination is resolved but still having some urinary retention - Day 2 Vancomycin & Zosyn - UA: 2+ Blood, >30 WBC, moderate leukocyte esterase, bacteriuria 4+ - Urine Culture: Gram-negative bacilli - Leukocytosis improving with antibiotic treatment - Blood Cultures Pending - E. Coli UTI on previous admission (pansensitive) treated with Zosyn 2) BPH - Tamsulosin - Was straight cathed yesterday evening - Continue to monitor urinary function - No palpable nodules or tenderness on prostate exam 3) Acute on Chronic kidney injury - CKD stage 3 - Current creatinine of 1.8 - Baseline creatinine of 1.7 4) Transaminitis - Continuing to improve - Patient has chronic elevation of alkaline phosphatase, AST, and ALT - After receiving IV fluid liver function tests have improved - Holding Statin 5) COPD - Fluticasone 220 mcg inhaler (Switched from Pulmicort on Admission) - Duonebs QID + Q2H PRN for shortness of breath - Currently on 2L NC but not on oxygen yesterday 6) Atrial Fibrillation - Rate controlled - Warfarin 7) Diabetes Mellitus - Sliding Scale Insulin 8) Hypothyroidism - Synthroid 9) Sleep Apnea - Nocturnal CPAP with 2L Oxygen 10) DVT - Warfarin 11) Code Status - Full Resuscitation Resident Physician Supervision Note: I interviewed and examined the patient. Discussed with Dr. Castellanos and agree with findings and plan as documented in the note. Any exceptions or clarifications are listed here: None Documented By: Bam Blake feeling much better no new complaints. all other ROS otherwise negative except for as above alexandre noted nad rectal done by R2 w my supervision reports to be normal, pt notes no exquisite tenderness UTI w ssepsis related to urinary retention and likely in part provoked by needing to self cath -improving, await ID and S -continue current abx urinary retention -likely acute LUTS from prostate, doens't have any chronic. flomax, cath as needed. rucker only if really difficult situation recent MRSA bacteremia -vanco, will have to review prior case if ??further abx needed otherwise as above Resident Tracking Resident Involvement: Resident Care Provided Care Provided: Adult Hospital Medicine
--- NOTE | 2017-04-13 15:58 | Infectious Disease Progress Nt ---
Progress Note Date of Service Apr 13, 2017. Subjective Pt evaluation today including: conversation w/ patient, physical exam, chart review, lab review, review of studies, conversation w/ underwriting consultant, review of inpatient medication list difficulty with urination requiring straight catheterization of 900 cc last night. Otherwise feeling better. Remains afebrile. Still no identification of gram-negative isolate from urine. Blood cultures remain negative. All Other Systems: Reviewed and Negative Medications Current Inpatient Medications Medications (Trade) Dose Ordered Sig/Sukhwinder Route Start Time Stop Time Status Last Admin Dose Admin Ondansetron HCl (Zofran Inj) 4 mg Q6H PRN IV 04/11/17 21:30 05/11/17 21:29 Miscellaneous (Iv Fluids Completed) 1 ea PRN PRN N/A 04/11/17 22:00 04/11/18 21:59 Albuterol (Ventolin Hfa Inhaler) . QID PRN INH 04/11/17 22:00 05/11/17 21:59 Acetaminophen/ Hydrocodone Bitart ([place] 10/325 Tab) 1 tab TID PRN PO 04/11/17 22:00 04/25/17 21:59 Levothyroxine Sodium (Synthroid Tab) 100 mcg DAILYBB PO 04/12/17 06:30 05/12/17 06:29 04/13/17 06:19 100 MCG Miconazole Nitrate (Desenex Powder) 1 appln DAILY PRN EXT 04/11/17 22:00 05/11/17 21:59 Tamsulosin HCl (Flomax Cap) 0.4 mg DAILY PO 04/12/17 09:00 05/12/17 08:59 04/13/17 08:18 0.4 MG Warfarin Sodium (Coumadin Tab) 2.5 mg MoFr@1600 PO 04/13/17 16:00 05/13/17 15:59 Warfarin Sodium (Coumadin Tab) 5 mg SuTuWeThSa@1600 PO 04/12/17 16:00 05/12/17 15:59 04/12/17 16:01 5 MG Fluticasone Propionate (Flovent Hfa 220MCG Inhaler) 2 puffs BID INH 04/12/17 09:00 05/12/17 08:59 04/13/17 08:17 2 PUFFS Fluticasone Propionate (Flonase Nasal [place]) 1 sprays BID NA 04/12/17 09:00 05/12/17 08:59 Sodium Chloride ([place] Nasal [place]) 2 sprays BID NA 04/12/17 09:00 05/12/17 08:59 04/13/17 08:18 2 SPRAYS Vancomycin HCl 1500 mg/Sodium Chloride 530 ml @ 200 mls/hr DAILY@0200 IV 04/12/17 02:00 04/26/17 01:59 04/13/17 02:15 200 MLS/HR Piperacillin Sod/ Tazobactam Sod (Consult) 1 ea UD PRN N/A 04/11/17 23:45 05/11/17 23:44 Miscellaneous Information (Consult Glycemic Management Pharmacy) 1 ea UD PRN N/A 04/12/17 06:07 05/12/17 06:06 Insulin Aspart (novoLOG ASPART) SLIDING SCALE ACHS SC 04/12/17 06:30 05/12/17 06:29 04/13/17 12:58 4 UNITS Glucose (Glucose 40% Gel) 15-30 GRAMS 15 GRAMS... UD PRN PO 04/12/17 06:30 05/12/17 06:29 Glucose (Glucose Chew Tab) 4-8 Tablets 4 Tabl... UD PRN PO 04/12/17 06:30 05/12/17 06:29 Dextrose (Dextrose 50% 50ML Syringe) 25-50ML OF 50% DW IV FOR... UD PRN IV 04/12/17 06:30 05/12/17 06:29 Glucagon (Glucagon Inj) 1 mg UD PRN SQ 04/12/17 06:30 05/12/17 06:29 Vancomycin HCl (Consult) 1 ea UD PRN N/A 04/12/17 08:15 05/12/17 08:14 Piperacillin Sod/ Tazobactam Sod 4.5 gm/Dextrose 120 ml @ 30 mls/hr Q8H IV 04/12/17 16:00 04/26/17 15:59 04/13/17 08:17 30 MLS/HR Insulin Detemir (Levemir Flexpen/ FlexTouch) 18 units DAILY SC 04/13/17 11:00 05/13/17 10:59 04/13/17 12:59 18 UNITS Heparin Sodium (Porcine) (Heparin 10 Unit/ ml 5 ml Flush) 5 ml PRN PRN FLUSH 04/13/17 09:00 05/13/17 08:59 04/13/17 10:30 5 ML Ergocalciferol (Vitamin D Cap) 50,000 interunit [place]@0900 PO 04/15/17 09:00 05/15/17 08:59 Furosemide (Lasix Tab) 20 mg BID17 PO 04/13/17 17:00 05/13/17 16:59 Albuterol/ Ipratropium (Combivent Respimat Inh) 1 puffs QID INH 04/13/17 19:00 05/13/17 18:59 Objective Vital Signs Date Time Temp Pulse Resp B/P (MAP) Pulse Ox O2 Delivery O2 Flow Rate FiO2 04/13/17 15:44 88 18 93 Room Air 04/13/17 15:00 36.3 65 20 138/61 (86) 91 Room Air 04/13/17 13:08 104 81 04/13/17 11:24 66 16 92 Room Air 04/13/17 08:00 97 Room Air 04/13/17 07:47 58 16 93 Nasal Cannula 2.0 04/13/17 07:33 36.4 60 20 132/55 (80) 91 BiPAP 1.5 04/13/17 00:25 36.5 58 20 103/54 (70) 90 Room Air 04/13/17 00:00 CPAP 04/12/17 20:46 54 16 92 Nasal Cannula 2.0 04/12/17 16:00 Room Air Physical Exam General Appearance: WD/WN, no apparent distress Eyes: normal inspection, EOMI, sclerae normal ENT: normal ENT inspection, hearing grossly normal, pharynx normal Neck: supple, no adenopathy, thyroid normal, trachea midline Respiratory/Chest: chest non-tender, lungs clear, normal breath sounds, no respiratory distress Cardiovascular: regular rate, rhythm, no gallop, + systolic murmur Abdomen: normal bowel sounds, non tender, soft, no organomegaly Extremities: non-tender, no calf tenderness Neurologic/Psychiatric: alert, oriented x 3 Skin: normal color, no rash Lymphatic: no adenopathy Laboratory Results Last 24 Hours Test 04/12/17 16:17 04/12/17 20:13 04/13/17 07:40 04/13/17 08:22 Bedside Glucose 155 mg/dl 179 mg/dl 98 mg/dl White Blood Count 9.20 K/uL Red Blood Count 3.40 M/uL Hemoglobin 9.7 g/dL Hematocrit 31.0 % Mean Corpuscular Volume 91.2 fL Mean Corpuscular Hemoglobin 28.5 pg Mean Corpuscular Hemoglobin Concent 31.3 g/dl Platelet Count 198 K/uL Mean Platelet Volume 9.0 fL Neutrophils (%) (Auto) 79.7 % Lymphocytes (%) (Auto) 6.3 % Monocytes (%) (Auto) 7.6 % Eosinophils (%) (Auto) 6.0 % Basophils (%) (Auto) 0.1 % Neutrophils # (Auto) 7.33 K/uL Lymphocytes # (Auto) 0.58 K/uL Monocytes # (Auto) 0.70 K/uL Eosinophils # (Auto) 0.55 K/uL Basophils # (Auto) 0.01 K/uL RDW Standard Deviation 69.3 fL RDW Coefficient of Variation 21.1 % Immature Granulocyte % (Auto) 0.3 % Immature Granulocyte # (Auto) 0.03 K/uL Toxic Granulation 1+ Polychromasia 1+ Hypochromasia PRESENT Sodium Level 139 mmol/L Potassium Level 4.1 mmol/L Chloride Level 106 mmol/L Carbon Dioxide Level 25 mmol/L Anion Gap 8.0 mmol/L Blood Urea Nitrogen 34 mg/dl Creatinine 1.80 mg/dl Est Creatinine Clear Calc Drug Dose 42.3 ml/min Estimated GFR () 40.0 Estimated GFR (Non- 34.5 BUN/Creatinine Ratio 19.1 Random Glucose 164 mg/dl Calcium Level 8.4 mg/dl Total Bilirubin 1.3 mg/dl Direct Bilirubin 0.7 mg/dl Aspartate Amino Transf (AST/SGOT) 40 U/L Alanine Aminotransferase (ALT/SGPT) 31 U/L Alkaline Phosphatase 843 U/L Total Protein 6.6 gm/dl Albumin 2.5 gm/dl Test 04/13/17 11:17 Bedside Glucose 123 mg/dl Assessment and Plan 81-year-old male with recent MRSA bacteremia on daptomycin therapy, now presents with recurrent fever associated with pyuria and positive urine culture for gram-negative bacilli. Certainly this is the most likely source of his fever, and should be well covered with Zosyn therapy. Await final identification sensitivities to direct further therapy. We will continue to follow.
[2017-04-13] MEDS ORDERED: WARFARIN SOD 2.5 MG TAB PO SCH (16:00)
[2017-04-13] MEDS: IPRATROPIUM BROMIDE/ALBUTEROL respimat INH INH SCH ×2 (20:50→20:52)
[2017-04-14] MEDS: PIPERACILL/TAZOBAC IV 4.5 GM in DEXTROSE 5% 100ML IV SCH ×2 (00:35→08:38)
[2017-04-14] MEDS ORDERED: VANCOMYCIN TROUGH ONE (01:30)
[2017-04-14] MEDS: VANCOMYCIN INJ 1,500 MG in SODIUM CHLORIDE 0.9% 500ML 500 ML IV SCH (02:37)
[2017-04-14] MEDS: LEVOTHYROXINE 100 MCG TAB PO SCH (05:34)
[2017-04-14 07:49] VITALS: BP 112/61; PULSE 51; TEMP 36.9; O2SAT 90
[2017-04-14] MEDS: IPRATROPIUM BROMIDE/ALBUTEROL respimat INH INH SCH ×3 (08:38→17:00)
[2017-04-14] MEDS: TAMSULOSIN HCL 0.4 MG CAP PO SCH (08:40)
[2017-04-14] MEDS: INSULIN ASPART 100 UNITS/ML 3 ML PEN SC SCH ×3 (08:40→16:30)
[2017-04-14] MEDS: FLUTICASONE HFA 220 MCG INHALER INH SCH (08:41)
[2017-04-14] MEDS: FUROSEMIDE 20 MG TAB PO SCH ×2 (08:41→17:00)
[2017-04-14] MEDS: FLUTICASONE PROPIONATE NA SPR 16 GM BTL SCH (08:41)
[2017-04-14] MEDS: SODIUM CHLORIDE 0.65% NA SOLN 45 ML (OCEAN) SCH (08:42)
[2017-04-14] MEDS ORDERED: INSULIN DETEMIR FLEXPEN/FLEX TOUCH 100 UNITS/ML 3ML SC SCH (09:00)
[2017-04-14] MEDS ORDERED: CEFTRIAXONE SOD INJ 2000 MG in DEXTROSE 5% 50ML IV SCH (11:00)
[2017-04-14] MEDS ORDERED: IRON SUCROSE INJ 100 MG in SODIUM CHLORIDE 0.9% 100ML 100 ML IV ONE (13:00)
--- NOTE | 2017-04-14 15:26 | Pharmacy Progress Note ---
Pharmacy Antibiotic Prog Note Date of Service Apr 14, 2017. Subjective The patient is currently receiving Vancomycin 1500 mg IV every 24 hours. The patient is currently on day # 4 of vancomycin IV therapy (following outpatient daptomycin for MRSA bacteremia.) Objective Height (Feet): 5 Height (Inches): 9.00 Weight (Kilograms): 125.600 Levels: Item Value Date Time Vancomycin Level Trough 15.7 mcg/ml 04/14/17 0206 Previous dose hung 04/13 @0215. Lab Results (24hrs): Test 04/14/17 02:06 04/14/17 07:36 04/14/17 11:24 Vancomycin Level Trough 15.7 mcg/ml (SEE COMMENT) Bedside Glucose 81 mg/dl (70-99) 101 mg/dl (70-99) Micro Results: 04/11 blood x2 NGTD 04/11 cath urine Enterobacter cloacae- R nitrofurantoin, sens all others Recent Pertinent Medications Item Value Date Time Ceftriaxone 70 ml @ 140 mls/hr 04/14/17 1100 Sodium 2000 mg/ DAILY@1100/IV 04/14/17 1348 Dextrose Piperacillin Sod/ 120 ml @ 30 mls/hr 04/12/17 1600 Tazobactam Sod Q8H/IV 04/14/17 0838 4.5 gm/Dextrose Vancomycin HCl 530 ml @ 200 mls/hr 04/12/17 0200 1500 mg/Sodium DAILY@0200/IV 04/14/17 0237 Chloride Assessment & Plan This drug level is: Therapeutic. Will continue same dose vancomycin and recheck trough in a few days if stable. Continue vancomycin 1500 mg IV every 24 hours. Goal trough level estimate: between 15-20 mcg/mL. Trough has been ordered for: 04/17/17 before 0200 dose Pharmacy will continue to follow and will adjust dose/frequency as necessary. Thank you
[2017-04-14] MEDS: WARFARIN SOD 5 MG TAB PO SCH (15:38)
[2017-04-14 15:46] VITALS: BP 131/43; PULSE 59; TEMP 36.4; O2SAT 92
[2017-04-14] MEDS ORDERED: TAMS0.4C38 PO (16:03)
[2017-04-14] MEDS ORDERED: CIPR1TAB11 PO (16:03)
--- NOTE | 2017-04-14 16:19 | Discharge Instructions ---
Discharge Instructions Date of Service Apr 14, 2017. Admission Reason for Admission: Fever, Leukocytosis, Mrsa Bacteremia Discharge Discharge Diagnosis / Problem: Urinary Tract Infection Discharge Goals Goal(s): Decrease discomfort, Improve function, Therapeutic intervention Activity Recommendations Activity Limitations: per Instructions/Follow-up section Lifting Limitations: gradually increase as tolerated Exercise/Sports Limitations: gradually increase as tolerated . Instructions / Follow-Up Instructions / Follow-Up - You were treated in the hospital for a Urinary Tract Infection. The urine grew a bacteria called Enterobacter Cloacea - NEW MEDICATIONS: - Ciprofloxacin 250mg: Take 1 tablet twice daily for the next 8 days. Take your first dose tomorrow morning. This medication is for your urinary tract infections - Flomax 0.4mg: Take 1 tablet twice daily. This medication is for your enlarge prostate to urinate easier - STOP taking Daptomycin after your discharge - We will not be removing your PICC line in the event of a future infection, this recommendation was made by infectious disease - Please got to the lab to have your INR checked on Monday 04/16 and because there is a change your antibiotic can interfere with your blood thinner - You can follow up these results with your family doctor - If you present with any worsening symptoms including fever, chills, shortness of breath, headache, nausea, vomiting, or any other concerning symptoms please be evaluated by a doctor or return the the emergency department Current Hospital Diet Patient's current hospital diet: Low Sodium Diet (2gm Na), AHA Diet (Heart Healthy), Diabetes Type 2 Diet, Renal Diet Discharge Diet Recommended Diet: AHA Diet (Heart Healthy), Low Sodium Diet (2gm Na), Diabetes Type 2 Diet Pending Studies Studies pending at discharge: no Laboratory Results Hemoglobin A1c Test 03/29/17 10:34 Range/Units Estimated Average Glucose 154 mg/dl Hemoglobin A1c 7.0 H 4.5-5.6 % Medical Emergencies . Who to Call and When: Medical Emergencies: If at any time you feel your situation is an emergency, please call 911 immediately. . Non-Emergent Contact Non-Emergency issues call your: Primary Care Provider . . "Provider Documentation" section prepared by Jacob Castellanos. . VTE Core Measure Inpt VTE Proph given/why not?: Warfarin (Coumadin) Resident Tracking Resident Involvement: Resident Care Provided Care Provided: Adult Hospital Medicine
[2017-04-14 16:21] VITALS: BP 131/43; PULSE 59; TEMP 36.4; O2SAT 92
[2017-04-15] MEDS ORDERED: ERGOCALCIFEROL 50,000 INTER.UNIT CAP PO SCH (09:00)
--- NOTE | 2017-04-15 23:29 | Discharge Summary ---
Discharge Summary Date of Service Apr 15, 2017. (Jacob Castellanos MD) Discharge Summary Admission Date: Apr 12, 2017 at 09:57 Discharge Date: Apr 14, 2017 Discharge Disposition: Home Principal Diagnosis: Sepsis secondary to urinary tract infection Immunizations: Have You Had Influenza Vaccine: Yes History of Tetanus Vaccine?: Yes History of Pneumococcal: Yes History of Hepatitis B Vaccine: Yes (Jacob Castellanos MD) Medication Reconciliation New Medications: Ciprofloxacin Tab (Cipro) 250 Mg Tab 1 TAB PO BID for 8 Days, #16 TAB Changed Medications: Tamsulosin Hcl (Flomax) 0.4 Mg Cap 0.4 MG PO BID for 30 Days, #60 CAP (Changed from: DAILY) Continued Medications: Albuterol Hfa (Ventolin Hfa) 200 Puffs/30982 Mcg Aers 1-2 PUFFS INH, #1 INHALER Budesonide (Inhalation) (Pulmicort) 1 Mg/2 Ml Milagros 2 ML NEB BID Ergocalciferol (Vitamin D 03730 Unit) 50,000 Unit Cap 77933 INTER.UNIT PO WK, CAP Furosemide (Lasix) 20 Mg Tab 20 MG PO BID, TAB Home O2 Therapy (Oxygen) Gas 1.5 LITER NA HS PRN for Shortness of Breath Hydrocodone/Acetaminophen 10MG/325MG ([place] 10MG/325MG) Tab 1 TAB PO TID PRN for Pain, TAB Insulin Lispro 75/25 (Humalog Mix 75/25) 100 Units/ Inj 20 UNITS SC BID, VIAL ADMINISTER THIS MEDICATION BEFORE BREAKFAST AND BEFORE EVENING MEAL Ipratropium-Albuterol (Duoneb) 3 Ml Nebu 1 TREATMENT INH TID PRN for Shortness of Breath, INHA Levothyroxine Sodium (Levothyroxine Sodium) 100 Mcg Tab 100 MCG PO DAILY Miconazole Nitrate (Desenex Shake Powder) 90 Appln/90 Gm Powd 1 APPLN EXT DAILY PRN for Itching Probiotic Product ([employer]) 1 Cap Cap 1 CAP PO DAILY Simvastatin (Zocor) 20 Mg Tab 20 MG PO DAILY, TAB Warfarin Sod (Coumadin) 5 Mg Tab 5 MG PO 5XWK TAKE 5 MG EVERY SUNDAY,SUNDAY,SUNDAY,SUNDAY AND SUNDAY OR OTHERWISE DIRECTED TO TAKE BY ANTICOAGULATION CLINIC/MD Warfarin Sod (Coumadin) 5 Mg Tab 2.5 MG PO 2XWK TAKE HALF A TABLET (2.5 MG) EVERY SUNDAY AND SUNDAY OR OTHERWISE DIRECTED TO TAKE BY ANTICOAGULATION CLINIC/MD Discontinued Medications: Daptomycin (Daptomycin) 500 Mg Inj 500 MG IV DAILY for 38 Days RECONSTITUTED, PRESCRIBED 03/26/2017 Discharge Exam Review of Systems: Constitutional: + fatigue, No fever, No chills Respiratory: No cough, No sputum, No shortness of breath Cardiovascular: No chest pain, No palpitations Abdomen: No pain, No nausea, No vomiting Genitourinary - Male: + urinary frequency, + urinary retention, No hematuria , No dysuria, No urinary incontinence Physical Exam: General Appearance: WD/WN, no apparent distress Eyes: normal inspection, sclerae normal Respiratory/Chest: chest non-tender, lungs clear, normal breath sounds Cardiovascular: regular rate, rhythm, no edema, no gallop Abdomen / GI: normal bowel sounds, non tender, soft Neurologic/Psychiatric: alert, normal mood/affect, oriented x 3 (Jacob Castellanos MD) Hospital Course The patient is an 81-year-old male that presented to the emergency department with weakness, fever, and chills, and was found to have a probable urinary tract infection with growth of gram-negative bacilli on urine culture. The patient was previously treated for a UTI with Cipro that completed 8 days ago. The patient has improved substantially while on antibiotics, and denies any burning on urination but is still having some urinary retention. The patient was initially placed on 2 days of vancomycin and Zosyn, and also received her sensitivities back we placed the patient on Cipro. We were concerned that the patient may have an element of prostatitis, but her rectal exam this morning did not reveal any acute tenderness of the prostate on palpation. During the patient's stay the patient also required to be catheterized twice, and will continue to self catheterize at home. He was counseled on sterilization techniques and how to prevent repeat UTI infection. Due to the patient's urinary retention and also increased his Flomax to 0.4 mg twice daily, from his previous dose of once daily. We also left his PICC line in place, in case of repeat infection. The patient will also be required to follow up INR checks on both Sunday and due to the risk of interaction between ciprofloxacin and warfarin. 1) Urinary Tract Infection - Improving, burning and urination is resolved but still having some urinary retention - Day 2 Vancomycin & Zosyn --> Discharged home on ciprofloxacin - UA: 2+ Blood, >30 WBC, moderate leukocyte esterase, bacteriuria 4+ - Urine Culture: Enterobacter Cloacae - Leukocytosis improving with antibiotic treatment - E. Coli UTI on previous admission (pansensitive) treated with Zosyn 2) BPH - Tamsulosin - Was straight cathed yesterday evening - Continue to monitor urinary function - No palpable nodules or tenderness on prostate exam 3) Acute on Chronic kidney injury - CKD stage 3 - Current creatinine of 1.8 - Baseline creatinine of 1.7 4) Transaminitis - Continuing to improve - Patient has chronic elevation of alkaline phosphatase, AST, and ALT - After receiving IV fluid liver function tests have improved - Holding Statin 5) COPD - Fluticasone 220 mcg inhaler (Switched from Pulmicort on Admission) - Duonebs QID + Q2H PRN for shortness of breath - Currently on 2L NC but not on oxygen yesterday 6) Atrial Fibrillation - Rate controlled - Warfarin 7) Diabetes Mellitus - Sliding Scale Insulin 8) Hypothyroidism - Synthroid 9) Sleep Apnea - Nocturnal CPAP with 2L Oxygen 10) DVT - Warfarin 11) Code Status - Full Resuscitation Total Time Spent: Greater than 30 minutes This includes examination of the patient, discharge planning, medication reconciliation, and communication with other providers. (Jacob Castellanos MD) Resident Physician Supervision Note: I interviewed and examined the patient. Discussed with [Emanuel] and agree with findings and plan as documented in the note. Any exceptions or clarifications are listed here: [None] Documented By: Bam Blake feeling better wants to go home d/w dr irvin and no further treatment indicated for MRSA from last admit, although rec'd keeping in PICC for now. discussed sensitivities, CKD, prior tolerability and that while he was recently on cipro current situation makes this a good fit vitals noted nad breathing unlabored no pallor or icterus UTI w sepsis -related to straight cath from urinary retention - improved dramatically, rectal did not suggest prostatitis. cipro as above. CKD3 recent MRSA bacteremia - no further treatment at this time per ID urinary retention - seems most c/w acute flare of BPH. normally doesn't have LUTS but has had sx over the last month requiring intermittent self cath. increase flomax to BID, continue straight cath prn, sees urology this coming week. hopefully as he gets further removed from acute illness(es) his sx will return to the minimal baseline; if not then can add finasteride and/or intervene further - and already has urology f/u set up for this (Bam Blake D.O.) Discharge Instructions Please refer to the electronic Patient Visit Report (Discharge Instructions) for additional information. (Jacob Castellanos MD) Additional Copies To Winston Harper M.D. Resident Tracking Resident Involvement: Resident Care Provided Care Provided: Adult Hospital Medicine (Jacob Castellanos MD)
[2017-04-16] MEDS ORDERED: ERGOCALCIFEROL 50,000 INTER.UNIT CAP PO SCH (09:00)
[2017-05-30] MEDS ORDERED: FERR1TAB23 (11:27)
[2017-06-21] MEDS ORDERED: HUMALOG MIX SQ (13:55)
== END 2017-04-14 17:20 | disposition home health service (06) | DRG 698 ==
LOC: C.EDB 18:19 → C.MS2W 21:33 → ENRESERV 21:41 → OBSVTOIN 04-12 09:57
PROVIDERS: ADMIT Hospitalist; ATTEND Family Medicine
DX: T83.598A Infection and inflammatory reaction due to other prosthetic device, implant and graft in urinary system, initial encounter (principal); A41.9 Sepsis, unspecified organism; N39.0 Urinary tract infection, site not specified; N17.9 Acute kidney failure, unspecified; I13.0 Hypertensive heart and chronic kidney disease with heart failure and stage 1 through stage 4 chronic kidney disease, or unspecified chronic kidney disease; Z68.41 Body mass index [BMI] 40.0-44.9, adult; B96.89 Other specified bacterial agents as the cause of diseases classified elsewhere; R33.8 Other retention of urine; N40.1 Benign prostatic hyperplasia with lower urinary tract symptoms; R74.0 Nonspecific elevation of levels of transaminase and lactic acid dehydrogenase [LDH]; I48.2 Chronic atrial fibrillation; I25.10 Atherosclerotic heart disease of native coronary artery without angina pectoris; J44.9 Chronic obstructive pulmonary disease, unspecified; N18.3 Chronic kidney disease, stage 3 (moderate); E11.40 Type 2 diabetes mellitus with diabetic neuropathy, unspecified; I50.9 Heart failure, unspecified; G47.30 Sleep apnea, unspecified; E11.22 Type 2 diabetes mellitus with diabetic chronic kidney disease; E78.5 Hyperlipidemia, unspecified; E03.9 Hypothyroidism, unspecified; E66.9 Obesity, unspecified; Z79.899 Other long term (current) drug therapy; Z79.01 Long term (current) use of anticoagulants; Z79.4 Long term (current) use of insulin; Z95.1 Presence of aortocoronary bypass graft; Z83.3 Family history of diabetes mellitus; Z82.49 Family history of ischemic heart disease and other diseases of the circulatory system; Y84.6 Urinary catheterization as the cause of abnormal reaction of the patient, or of later complication, without mention of misadventure at the time of the procedure

== ENCOUNTER → 2017-04-19 | Outpatient (CLI) | payer OTHER ==
[~2017-04-19] MED LIST changes: +CEFD1CAP14 PO; +CIPR1TAB10 PO; +CIPR1TAB11 PO; +CPR/500 PO; -DAPT500I IV; +FERR1TAB23; +HUMALOG MIX SQ; +PROBCAP PO
[2017-04-19 18:50] LABS: HEMATOCRIT 33.6 % (42-52); MEAN CELL VOLUME 94.6 fL (80-100); MEAN CORPUSCULAR HEMOGLOBIN 29.9 pg (25-34); MEAN CORPUSCULAR HGB CONC 31.5 g/dl (32-36); MEAN PLATELET VOLUME 9.1 fL (7.4-10.4); PLATELET COUNT 326 K/uL (130-400); RED BLOOD COUNT 3.55 M/uL (4.7-6.1); WHITE BLOOD COUNT 7.67 K/uL (4.8-10.8)
[2017-04-19 18:57] LABS: BLOOD UREA NITROGEN 34 mg/dl (7-18); BUN/CREATININE RATIO 20.2 (10-20); CALCIUM 9.3 mg/dl (8.5-10.1); CARBON DIOXIDE 27 mmol/L (21-32); CHLORIDE 107 mmol/L (98-107); GLUCOSE 202 mg/dl (70-99); POTASSIUM 4.2 mmol/L (3.5-5.1); SODIUM 141 mmol/L (136-145)
== END | disposition home or self-care (01) ==
LOC: C.LABSPEC 16:33
PROVIDERS: ATTEND Internal Medicine Infectious Disease
DX: M86.9 Osteomyelitis, unspecified (principal); B95.62 Methicillin resistant Staphylococcus aureus infection as the cause of diseases classified elsewhere

== ENCOUNTER → 2017-04-20 | Outpatient (CLI) | payer OTHER ==
[2017-04-20 14:00] LABS: BLOOD UREA NITROGEN 33 mg/dl (7-18); BUN/CREATININE RATIO 20.7 (10-20); CARBON DIOXIDE 28 mmol/L (21-32); CHLORIDE 106 mmol/L (98-107); GLUCOSE 52 mg/dl (70-99); POTASSIUM 4.5 mmol/L (3.5-5.1); SODIUM 142 mmol/L (136-145)
[2017-04-20 14:05] LABS: FERRITIN 196.6 ng/ml (8.0-388.0); TOTAL IRON BINDING CAPACITY 299 mcg/dl (250-450)
== END | disposition home or self-care (01) ==
LOC: C.LABBC 09:31
PROVIDERS: ATTEND Internal Medicine Nephrology
DX: D64.9 Anemia, unspecified (principal); I50.9 Heart failure, unspecified; Z79.01 Long term (current) use of anticoagulants; Z79.2 Long term (current) use of antibiotics

== ENCOUNTER → 2017-05-02 | Outpatient (CLI) | payer OTHER ==
[~2017-05-02] MED LIST changes: -CIPR1TAB11 PO
[2017-05-02 10:50] LABS: HEMATOCRIT 35.5 % (42-52)
== END | disposition home or self-care (01) ==
LOC: C.LABBC 09:11
PROVIDERS: ATTEND Internal Medicine Nephrology
DX: D50.9 Iron deficiency anemia, unspecified (principal)

== ENCOUNTER → 2017-05-04 | Outpatient (CLI) | payer OTHER ==
[2017-05-04 13:22] LABS: INR 2.4 (0.9-1.1); PROTHROMBIN TIME (PATIENT) 26.1 SECONDS (9.0-12.0)
== END | disposition home or self-care (01) ==
LOC: C.LABBC 09:37
PROVIDERS: ATTEND Internal Medicine
DX: I48.91 Unspecified atrial fibrillation (principal)

== ENCOUNTER → 2017-05-14 | Outpatient (CLI) | payer OTHER ==
[2017-05-14 14:03] LABS: HEMATOCRIT 35.3 % (42-52)
== END | disposition home or self-care (01) ==
LOC: C.LABBC 10:30
PROVIDERS: ATTEND Internal Medicine Nephrology
DX: N18.3 Chronic kidney disease, stage 3 (moderate) (principal)

== ENCOUNTER → 2017-05-24 | Outpatient (CLI) | payer OTHER ==
[2017-05-24 10:55] LABS: BASO % 0.4 %; BASO ABS # 0.03 K/uL (0-0.2); COMPLETE YES; EOS % 3.9 %; IG% 0.6 %; LYMPH % 12.6 %; LYMPH ABS # 0.88 K/uL (1.2-3.4); MEAN CELL VOLUME 93.3 fL (80-100); MEAN CORPUSCULAR HEMOGLOBIN 30.3 pg (25-34); MEAN CORPUSCULAR HGB CONC 32.5 g/dl (32-36); MEAN PLATELET VOLUME 8.8 fL (7.4-10.4); MONO % 10.6 %; NEUT % 71.9 %; PLATELET COUNT 267 K/uL (130-400); RED BLOOD COUNT 3.86 M/uL (4.7-6.1); WHITE BLOOD COUNT 6.98 K/uL (4.8-10.8)
== END | disposition home or self-care (01) ==
LOC: C.LABBC 08:22
PROVIDERS: ATTEND Internal Medicine Infectious Disease
DX: D64.9 Anemia, unspecified (principal); A49.02 Methicillin resistant Staphylococcus aureus infection, unspecified site

== ENCOUNTER 2017-06-04 17:52 | Emergency (ER) | payer OTHER ==
[~2017-06-04] VITALS: Ht 175.3 cm; Wt 120.0 kg
[~2017-06-04 17:52] MED LIST changes: -BUDE1SUS NEB; -CEFD1CAP14 PO; -CIPR1TAB10 PO; -CPR/500 PO; -HUMALOG MIX SQ
[2017-06-04 18:16] VITALS: Ht 175.3 cm; Wt 120.0 kg
[2017-06-04] MEDS ORDERED: SODIUM CHLORIDE 0.9% 1000ML 1,000 ML IV STA (18:28)
[2017-06-04] MEDS ORDERED: CEFTRIAXONE SOD INJ 1 GM ADDVIAL IV STA (18:34)
--- NOTE | 2017-06-04 18:47 | DIAGNOSTIC IMAGING REPORT ---
SINGLE VIEW CHEST CLINICAL HISTORY: Fever. Sepsis. FINDINGS: An AP, portable, upright chest radiograph is compared to study dated 04/11/2017. The examination is degraded by portable technique and patient rotation. The heart is enlarged and there is atherosclerotic calcification of the thoracic aorta. Mild pulmonary vascular congestion is observed. No airspace consolidation or large pleural effusion is identified. No pneumothorax is seen. The bony thorax is grossly intact. Postoperative change is again seen in the chest wall. IMPRESSION: 1. Cardiomegaly with evidence of mild congestive failure. 2. No airspace consolidation or large pleural effusion is identified. Electronically signed by: Shadi Walton M.D. 06/04/2017 6:46 PM Dictated Date/Time: 06/04/2017 6:45 PM
[2017-06-04 19:15] LABS: BASO % 0.1 %; BASO ABS # 0.01 K/uL (0-0.2); COMPLETE YES; EOS % 0.1 %; HEMATOCRIT 37.9 % (42-52); IG% 0.4 %; LYMPH % 5.8 %; LYMPH ABS # 0.95 K/uL (1.2-3.4); MEAN CELL VOLUME 93.8 fL (80-100); MEAN CORPUSCULAR HEMOGLOBIN 30.7 pg (25-34); MEAN CORPUSCULAR HGB CONC 32.7 g/dl (32-36); MONO % 9.6 %; PLATELET COUNT 263 K/uL (130-400); RED BLOOD COUNT 4.04 M/uL (4.7-6.1)
[2017-06-04] MEDS ORDERED: TAMS0.4C38 PO (19:31)
[2017-06-04 19:33] LABS: ALT/SGPT 31 U/L (12-78); BLOOD UREA NITROGEN 42 mg/dl (7-18); BUN/CREATININE RATIO 26.3 (10-20); CALCIUM 9.4 mg/dl (8.5-10.1); CARBON DIOXIDE 26 mmol/L (21-32); CHLORIDE 101 mmol/L (98-107); GLUCOSE 128 mg/dl (70-99); POTASSIUM 4.5 mmol/L (3.5-5.1); SODIUM 135 mmol/L (136-145)
[2017-06-04 19:37] LABS: INR 2.6 (0.9-1.1); PARTIAL THROMBOPLASTIN RATIO 1.8
[2017-06-04 19:38] LABS: ALKALINE PHOSPHATASE 906 U/L (45-117); AST/SGOT 41 U/L (15-37)
[2017-06-04 19:48] LABS: URINE APPEARANCE CLEAR (CLEAR); URINE BILIRUBIN NEG (NEG); URINE COLOR YELLOW; URINE EPITHELIAL CELL AUTO 20-30 /lpf (0-5); URINE NITRITE NEG (NEG); URINE SPECIFIC GRAVITY 1.019 (1.000-1.030); UROBILINOGEN NEG (NEG); ZZUR CULT IF INDIC CLEAN CATCH YES
[2017-06-04 19:49] LABS: MANUAL MICROSCOPIC REQUIRED? NO; REVIEW REQ? YES
[2017-06-04] MEDS ORDERED: CIPR1TAB10 PO (21:19)
--- NOTE | 2017-06-04 21:36 | EMERGENCY ROOM VISIT NOTE ---
History Report prepared by Derick: Felipe Ramos Under the Supervision of: Dr. Robert Almaguer D.O. First contact with patient: 18:21 Chief Complaint: FEVER Stated Complaint: FEVER History of Present Illness The patient is a 81 year old male who presents to the Emergency Room with complaints of a waxing an waning fever starting earlier today. The patient states that he has had a runny nose, though this is chronic. 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 He states that he recently twisted it hard, and it has been hurting ever since, and it is radiating into his back. The patient is worried about a possible infection in his chest, though he states that he has never had a known infection before. The patient denies any abdominal pain, shortness of breath, cough, and sorethroat. He is currently on Cipro for a UTI. 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 Source of History: patient Onset: earlier today Position: other (global) Quality: other (fever) Timing: intermittent Associated Symptoms: No abdominal pain Note: Associated symptoms: Runny nose Review of Systems See HPI for pertinent positives & negatives. A total of 10 systems reviewed and were otherwise negative. 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 (21) Painful diabetic neuropathy (22) Pulmonary hypertension (23) Secondary hyperparathyroidism (24) Shortness of breath (25) SIRS (systemic inflammatory response syndrome) (26) Sleep apnea (27) Stage 3 chronic kidney disease (28) Urinary retention Surgical Problems: (1) Hx of CABG Family History FH: diabetes mellitus FH: hypertension Social History Smoking Status: Never Smoker Drug Use: none Marital Status: Housing Status: lives with significant other Occupation Status: retired Current/Historical Medications Scheduled Ciprofloxacin Hcl (Cipro), 1 TAB PO BID Ergocalciferol (Vitamin D 58431 Unit), 50,000 INTER.UNIT PO WK Ferrous Sulfate (Iron), Q2D Furosemide (Lasix), 20 MG PO BID Insulin Lispro 75/25 (Humalog Mix 75/25), 20 UNITS SC BID Levothyroxine Sodium (Levothyroxine Sodium), 100 MCG PO DAILY Probiotic Product ([employer]), 1 CAP PO DAILY Simvastatin (Zocor), 20 MG PO DAILY Tamsulosin Hcl (Flomax), 0.4 MG PO QAM Warfarin Sod (Coumadin), 5 MG PO 5XWK Warfarin Sod (Coumadin), 2.5 MG PO 2XWK Scheduled PRN Home O2 Therapy (Oxygen), 1.5 LITER NA HS PRN for Shortness of Breath Hydrocodone/Acetaminophen 10MG/325MG ([place] 10MG/325MG), 1 TAB PO TID PRN for Pain Ipratropium-Albuterol (Duoneb), 1 TREATMENT INH TID PRN for Shortness of Breath Miconazole Nitrate (Desenex Shake Powder), 1 APPLN EXT DAILY PRN for Itching Miscellaneous Medications Albuterol Hfa (Ventolin Hfa), 1-2 PUFFS INH Allergies Coded Allergies: Chlorpheniramine (Verified Allergy, Unknown, ., 06/04/17) Phenylpropanolamine (Verified Allergy, Unknown, ., 06/04/17) Linezolid (Verified Adverse Reaction, Intermediate, GI SYMPTOMS, 06/04/17) Concommitant GI bleed Physical Exam Vital Signs Date Time Temp Pulse Resp B/P (MAP) Pulse Ox O2 Delivery O2 Flow Rate FiO2 06/04/17 19:44 73 19 175/70 99 Room Air 06/04/17 19:14 76 06/04/17 18:16 37.9 94 18 133/73 99 Room Air Physical Exam CONSTITUTIONAL/VITAL SIGNS: Reviewed / noted above. GENERAL: Non-toxic in appearance. INTEGUMENTARY: Warm, dry, and [place]. HEAD: Normocephalic. EYES: without scleral icterus or trauma. ENT/OROPHARYNX: clear and moist. LYMPHADENOPATHY/NECK: Is supple without lymphadenopathy or meningismus. RESPIRATORY: Lungs clear and equal. CARDIOVASCULAR: Regular rate and rhythm. CHEST: Mild tenderness over the sternum with a light pink area over the mid sternal scar which he reports is unchanged from baseline. GI/ABDOMEN: Soft and nontender. No organomegaly or pulsatile mass. No rebound or guarding. Normal bowel sounds. EXTREMITIES: Warm and well perfused. BACK: No CVA tenderness. NEUROLOGICAL: Intact without focal deficits. PSYCHIATRIC: normal affect. MUSCULOSKELETAL: Normally developed with good muscle tone. Medical Decision & Procedures ER Provider Diagnostic Interpretation: Radiology results as stated below per my review and radiologist interpretation: SINGLE VIEW CHEST CLINICAL HISTORY: Fever. Sepsis. FINDINGS: An AP, portable, upright chest radiograph is compared to study dated 04/11/2017. The examination is degraded by portable technique and patient rotation. The heart is enlarged and there is atherosclerotic calcification of the thoracic aorta. Mild pulmonary vascular congestion is observed. No airspace consolidation or large pleural effusion is identified. No pneumothorax is seen. The bony thorax is grossly intact. Postoperative change is again seen in the chest wall. IMPRESSION: 1. Cardiomegaly with evidence of mild congestive failure. 2. No airspace consolidation or large pleural effusion is identified. Electronically signed by: Shadi Walton M.D. 06/04/2017 6:46 PM Dictated Date/Time: 06/04/2017 6:45 PM Laboratory Results 06/04/17 18:55 Red Blood Count 4.04, Mean Corpuscular Volume 93.8, Mean Corpuscular Hemoglobin 30.7, Mean Corpuscular Hemoglobin Concent 32.7, Mean Platelet Volume 9.0, Neutrophils (%) (Auto) 84.0, Lymphocytes (%) (Auto) 5.8, Monocytes (%) (Auto) 9.6, Eosinophils (%) (Auto) 0.1, Basophils (%) (Auto) 0.1, Neutrophils # (Auto) 13.87, Lymphocytes # (Auto) 0.95, Monocytes # (Auto) 1.59, Eosinophils # (Auto) 0.02, Basophils # (Auto) 0.01 06/04/17 18:55 Test 06/04/17 18:55 06/04/17 19:34 White Blood Count 16.50 K/uL (4.8-10.8) Red Blood Count 4.04 M/uL (4.7-6.1) Hemoglobin 12.4 g/dL (14.0-18.0) Hematocrit 37.9 % (42-52) Mean Corpuscular Volume 93.8 fL (80-100) Mean Corpuscular Hemoglobin 30.7 pg (25-34) Mean Corpuscular Hemoglobin Concent 32.7 g/dl (32-36) Platelet Count 263 K/uL (130-400) Mean Platelet Volume 9.0 fL (7.4-10.4) Neutrophils (%) (Auto) 84.0 % Lymphocytes (%) (Auto) 5.8 % Monocytes (%) (Auto) 9.6 % Eosinophils (%) (Auto) 0.1 % Basophils (%) (Auto) 0.1 % Neutrophils # (Auto) 13.87 K/uL (1.4-6.5) Lymphocytes # (Auto) 0.95 K/uL (1.2-3.4) Monocytes # (Auto) 1.59 K/uL (0.11-0.59) Eosinophils # (Auto) 0.02 K/uL (0-0.5) Basophils # (Auto) 0.01 K/uL (0-0.2) RDW Standard Deviation 60.9 fL (36.4-46.3) RDW Coefficient of Variation 17.5 % (11.5-14.5) Immature Granulocyte % (Auto) 0.4 % Immature Granulocyte # (Auto) 0.06 K/uL (0.00-0.02) Prothrombin Time 29.0 SECONDS (9.0-12.0) Prothromb Time International Ratio 2.6 (0.9-1.1) Activated Partial Thromboplast Time 45.7 SECONDS (21.0-31.0) Partial Thromboplastin Ratio 1.8 Anion Gap 8.0 mmol/L (3-11) Est Creatinine Clear Calc Drug Dose 46.3 ml/min Estimated GFR () 46.1 Estimated GFR (Non- 39.8 BUN/Creatinine Ratio 26.3 (10-20) Calcium Level 9.4 mg/dl (8.5-10.1) Total Bilirubin 2.0 mg/dl (0.2-1) Direct Bilirubin 1.1 mg/dl (0-0.2) Aspartate Amino Transf (AST/SGOT) 41 U/L (15-37) Alanine Aminotransferase (ALT/SGPT) 31 U/L (12-78) Alkaline Phosphatase 906 U/L (45-117) Total Creatine Kinase 60 U/L (39-308) Creatine Kinase MB 0.6 ng/ml (0.5-3.6) Creatine Kinase MB Ratio 1.0 (0-3.0) Troponin I < 0.015 ng/ml (0-0.045) Total Protein 8.7 gm/dl (6.4-8.2) Albumin 3.5 gm/dl (3.4-5.0) Lipase 154 U/L (73-393) Urine Color YELLOW Urine Appearance CLEAR (CLEAR) Urine pH 5.0 (4.5-7.5) Urine Specific [place] 1.019 (1.000-1.030) Urine Protein NEG (NEG) Urine Glucose (UA) NEG (NEG) Urine Ketones NEG (NEG) Urine Occult Blood 1+ (NEG) Urine Nitrite NEG (NEG) Urine Bilirubin NEG (NEG) Urine Urobilinogen NEG (NEG) Urine Leukocyte Esterase MODERATE (NEG) Urine WBC (Auto) 10-30 /hpf (0-5) Urine RBC (Auto) 10-30 /hpf (0-4) Urine Hyaline Casts (Auto) 0 /lpf (0-5) Urine Epithelial Cells (Auto) 20-30 /lpf (0-5) Urine Bacteria (Auto) NEG (NEG) Urine Crystals TALC (NONE PRSENT) Urine Pathogenic Casts /lpf (0) Urine Yeast (Auto) (NONE PRSENT) Laboratory results as stated above per my review. Medications Administered Medications (Trade) Dose Ordered Sig/Sukhwinder Route Start Time Stop Time Status Last Admin Dose Admin Sodium Chloride 1,000 ml @ 999 mls/hr Q1H1M STAT IV 06/04/17 18:28 06/04/17 19:28 DC 06/04/17 19:45 999 MLS/HR Ceftriaxone Sodium (Rocephin Inj) 1 gm NOW STAT IV 06/04/17 18:34 06/04/17 18:35 DC 06/04/17 19:45 1 GM ECG Indication: other (fever) Rate (beats per minute): 74 Rhythm: atrial fibrillation Findings: no ectopy, other (No acute injury, baseline artifact) ED Course 1820: Previous medical records were reviewed. The patient was evaluated in room C10. A complete history and physical examination was performed. 1828: Sodium Chloride 1000 ml @ 999 mls/hr IV 183: Rocephin Inj 1gm IV 2111: On reevaluation, the patient is doing well. I discussed the results and findings with the patient. He verbalized agreement of the treatment plan. He was discharged home. Medical Decision Differential includes viral illness, influenza, streptococcal pharyngitis, meningitis, pneumonia, sinusitis, UTI, pyelonephritis, otitis media. This is a 81-year-old male who presents to the ED with a chief complaint of a fever intermittently today. The patient states that he has had fever similar to this in the past which have been related to UTIs. He also reports some pain in his sternum area. He states that he recently twisted it. He thinks that his symptoms might be musculoskeletal related regarding his chest. He denies any other significant symptoms. He has not had a new cough or shortness of breath. No abdominal pains. No nausea vomiting. His temperature today is 37.9. He did take a dose of Cipro earlier that he had left over from a previous infection. The patient's white blood cell count of 16.5. INR is 2.6. He is on Coumadin. The BUN is 42. Creatinine is 1.6. This is near the patient's baseline. Urine suggest possible UTI. There is no bacteria in the urine but this could be related to the patient having taken a dose of Cipro earlier today. He did receive normal saline 1 L. Troponin was negative. Total bilirubin was elevated at 2. The patient was given IV fluids and IV Rocephin. Blood cultures and urine culture are pending. The patient was told to return for worsening symptoms or other concerns. He will follow-up with Dr. Rabago and his PCP. Medication Reconcilliation Current Medication List: was personally reviewed by me Blood Pressure Screening Patient's blood pressure: Elevated blood pressure Blood pressure disposition: Elevated BP felt to be situational Impression Primary Impression: UTI (urinary tract infection) Additional Impression: Fever Scribe Attestation The scribe's documentation has been prepared under my direction and personally reviewed by me in its entirety. I confirm that the note above accurately reflects all work, treatment, procedures, and medical decision making performed by me. Departure Information Dispostion Home / Self-Care Prescriptions Ciprofloxacin Hcl (CIPRO) 500 Mg Tab 1 TAB PO BID for 10 Days, #20 TAB Prov: Robert Almaguer D.O. 06/04/17 Referrals Winston Harper M.D. (PCP) Patient Instructions My [facility] Problem Qualifiers
[2017-06-04 21:40] VITALS: BP 166/75; PULSE 82; TEMP 37.2; O2SAT 97
--- NOTE | 2017-06-07 12:21 | Pharmacy Progress Note ---
ED Pharmacist Culture FollowUp Date of Service: Jun 07, 2017. Called patient regarding blood culture growing MRSA in 1/2 bottles. Patient was called immediately upon receipt of this information from the charge nurse. Spoke with who confirmed patient would be out for the day and did not have any additional methods to contact him. Urged her to have him call us as soon as possible. Charge nurse discussed case with Aleta.
[2017-06-21] MEDS ORDERED: HUMALOG MIX SQ (13:55)
== END 2017-06-04 21:43 | disposition home or self-care (01) ==
LOC: C.EDB 17:52 → C.EDC 21:43
DX: N39.0 Urinary tract infection, site not specified (principal); I48.91 Unspecified atrial fibrillation; I12.9 Hypertensive chronic kidney disease with stage 1 through stage 4 chronic kidney disease, or unspecified chronic kidney disease; N18.3 Chronic kidney disease, stage 3 (moderate); E78.5 Hyperlipidemia, unspecified; E11.9 Type 2 diabetes mellitus without complications; I25.10 Atherosclerotic heart disease of native coronary artery without angina pectoris; E03.9 Hypothyroidism, unspecified; I50.9 Heart failure, unspecified; J44.9 Chronic obstructive pulmonary disease, unspecified; D64.9 Anemia, unspecified; E21.1 Secondary hyperparathyroidism, not elsewhere classified; M86.472 Chronic osteomyelitis with draining sinus, left ankle and foot; G47.39 Other sleep apnea; Z86.14 Personal history of Methicillin resistant Staphylococcus aureus infection; Z95.1 Presence of aortocoronary bypass graft; Z79.01 Long term (current) use of anticoagulants; Z79.4 Long term (current) use of insulin; Z79.899 Other long term (current) drug therapy; Z88.8 Allergy status to other drugs, medicaments and biological substances; Z83.3 Family history of diabetes mellitus; Z82.49 Family history of ischemic heart disease and other diseases of the circulatory system

== ENCOUNTER 2017-06-07 15:02 | Emergency (ER) | payer OTHER ==
[~2017-06-07] VITALS: Ht 175.3 cm; Wt 120.0 kg
[~2017-06-07 15:02] MED LIST changes: +BUDE1SUS NEB; +CIPR1TAB10 PO
[2017-06-07 15:15] VITALS: Ht 175.3 cm; Wt 120.0 kg
[2017-06-07] MEDS ORDERED: CPR/500 PO (16:22)
--- NOTE | 2017-06-07 16:31 | EMERGENCY ROOM VISIT NOTE ---
History Report prepared by Derick: John Fishman Under the Supervision of: Dr. Yenny Hernandez M.D. First contact with patient: 16:13 Chief Complaint: ILLNESS Stated Complaint: MRSA History of Present Illness The patient is a 81 year old male who presents to the Emergency Room with complaints of a possible MRSA infection. He was seen in the ER three days ago for abnormal urinary symptoms and a fever. He was placed on Ciprofloxacin and received blood cultures. He was called today by the ER pharmacist who told him that one of his blood cultures was positive for MRSA and one was negative. He currently states that his urinary symptoms and fever are better. He notes that his legs are swollen bilaterally. He notes that he has been treated for lymphedema in the past. He was treated for MRSA in his urine here in March 2017. Source of History: patient Onset: today Position: other (Global) Symptom Intensity: moderate Quality: other (Potential MRSA infection) Timing: constant Associated Symptoms: No fevers, No urinary symptoms Note: He has bilateral leg edema. Review of Systems See HPI for pertinent positives & negatives. A total of 10 systems reviewed and were otherwise negative. 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 (21) Painful diabetic neuropathy (22) Pulmonary hypertension (23) Secondary hyperparathyroidism (24) Shortness of breath (25) SIRS (systemic inflammatory response syndrome) (26) Sleep apnea (27) Stage 3 chronic kidney disease (28) Urinary retention Surgical Problems: (1) Hx of CABG Family History FH: diabetes mellitus FH: hypertension Social History Smoking Status: Never Smoker Drug Use: none Marital Status: Housing Status: lives with significant other Occupation Status: retired Current/Historical Medications Scheduled Cefdinir (Omnicef), 300 MG PO DAILY Ciprofloxacin (Ciprofloxacin HCl), 500 MG PO BID Ergocalciferol (Vitamin D 54365 Unit), 50,000 INTER.UNIT PO WK Ferrous Sulfate (Iron), Q2D Furosemide (Lasix), 20 MG PO BID Insulin Lispro 75/25 (Humalog Mix 75/25), 20 UNITS SC BID Levothyroxine Sodium (Levothyroxine Sodium), 100 MCG PO DAILY Probiotic Product (Syllabuster), 1 CAP PO DAILY Simvastatin (Zocor), 20 MG PO DAILY Tamsulosin Hcl (Flomax), 0.4 MG PO QAM Warfarin Sod (Coumadin), 5 MG PO 5XWK Warfarin Sod (Coumadin), 2.5 MG PO 2XWK Scheduled PRN Home O2 Therapy (Oxygen), 1.5 LITER NA HS PRN for Shortness of Breath Hydrocodone/Acetaminophen 10MG/325MG ([place] 10MG/325MG), 1 TAB PO TID PRN for Pain Ipratropium-Albuterol (Duoneb), 1 TREATMENT INH TID PRN for Shortness of Breath Miconazole Nitrate (Desenex Shake Powder), 1 APPLN EXT DAILY PRN for Itching Miscellaneous Medications Albuterol Hfa (Ventolin Hfa), 1-2 PUFFS INH Allergies Coded Allergies: Chlorpheniramine (Verified Allergy, Intermediate, "CAUSE PROSTATE TO ENLARGE", 06/07/17) Phenylpropanolamine (Verified Allergy, Intermediate, "CAUSE PROSTATE TO ENLARGE"., 06/07/17) Linezolid (Verified Adverse Reaction, Intermediate, GI SYMPTOMS, 06/07/17) Concommitant GI bleed Physical Exam Vital Signs Date Time Temp Pulse Resp B/P (MAP) Pulse Ox O2 Delivery O2 Flow Rate FiO2 06/07/17 19:32 36.9 53 18 131/62 97 06/07/17 19:17 36.9 53 18 131/62 97 Room Air 06/07/17 17:12 37.8 62 16 127/62 98 06/07/17 15:15 36.9 68 18 123/62 94 Room Air 1.5 Physical Exam Vital signs reviewed. General: Well-appearing elderly male, in no significant distress. HEENT: No scleral icterus, PERRLA, neck supple. Atraumatic. Cardiovascular: Regular rate and rhythm, no extra sounds. Pulmonary: Clear to auscultation bilaterally, normal work of breathing. Abdomen: Soft, nontender, nondistended, positive bowel sounds. Musculoskeletal: Atraumatic, no peripheral edema. Neurologic: Patient awake alert and oriented x 3 Skin: Warm, dry, no rash Medical Decision & Procedures Laboratory Results 06/07/17 17:01 Red Blood Count 3.56, Mean Corpuscular Volume 91.9, Mean Corpuscular Hemoglobin 29.8, Mean Corpuscular Hemoglobin Concent 32.4, Mean Platelet Volume 9.1, Neutrophils (%) (Auto) 85.8, Lymphocytes (%) (Auto) 5.2, Monocytes (%) (Auto) 8.5, Eosinophils (%) (Auto) 0.1, Basophils (%) (Auto) 0.1, Neutrophils # (Auto) 10.08, Lymphocytes # (Auto) 0.61, Monocytes # (Auto) 1.00, Eosinophils # (Auto) 0.01, Basophils # (Auto) 0.01 06/07/17 17:01 Test 06/07/17 17:01 White Blood Count 11.75 K/uL (4.8-10.8) Red Blood Count 3.56 M/uL (4.7-6.1) Hemoglobin 10.6 g/dL (14.0-18.0) Hematocrit 32.7 % (42-52) Mean Corpuscular Volume 91.9 fL (80-100) Mean Corpuscular Hemoglobin 29.8 pg (25-34) Mean Corpuscular Hemoglobin Concent 32.4 g/dl (32-36) Platelet Count 241 K/uL (130-400) Mean Platelet Volume 9.1 fL (7.4-10.4) Neutrophils (%) (Auto) 85.8 % Lymphocytes (%) (Auto) 5.2 % Monocytes (%) (Auto) 8.5 % Eosinophils (%) (Auto) 0.1 % Basophils (%) (Auto) 0.1 % Neutrophils # (Auto) 10.08 K/uL (1.4-6.5) Lymphocytes # (Auto) 0.61 K/uL (1.2-3.4) Monocytes # (Auto) 1.00 K/uL (0.11-0.59) Eosinophils # (Auto) 0.01 K/uL (0-0.5) Basophils # (Auto) 0.01 K/uL (0-0.2) RDW Standard Deviation 56.8 fL (36.4-46.3) RDW Coefficient of Variation 17.0 % (11.5-14.5) Immature Granulocyte % (Auto) 0.3 % Immature Granulocyte # (Auto) 0.04 K/uL (0.00-0.02) Prothrombin Time 22.9 SECONDS (9.0-12.0) Prothromb Time International Ratio 2.1 (0.9-1.1) Activated Partial Thromboplast Time 43.2 SECONDS (21.0-31.0) Partial Thromboplastin Ratio 1.7 Anion Gap 9.0 mmol/L (3-11) Est Creatinine Clear Calc Drug Dose 37.1 ml/min Estimated GFR () 35.2 Estimated GFR (Non- 30.4 BUN/Creatinine Ratio 32.1 (10-20) Calcium Level 8.8 mg/dl (8.5-10.1) Total Bilirubin 1.6 mg/dl (0.2-1) Direct Bilirubin 1.1 mg/dl (0-0.2) Aspartate Amino Transf (AST/SGOT) 56 U/L (15-37) Alanine Aminotransferase (ALT/SGPT) 35 U/L (12-78) Alkaline Phosphatase 898 U/L (45-117) Total Protein 7.8 gm/dl (6.4-8.2) Albumin 2.9 gm/dl (3.4-5.0) Laboratory results per my review. Medications Administered Medications (Trade) Dose Ordered Sig/Sukhwinder Route Start Time Stop Time Status Last Admin Dose Admin Cefdinir (Omnicef Cap) 300 mg NOW ONCE PO 06/07/17 19:15 06/07/17 19:16 DC 06/07/17 19:29 300 MG ED Course 1613: Past medical records reviewed. The patient was evaluated in room A12. A complete history and physical examination was performed. 1914: Ordered Cefdinir 300 mg PO 1929: Ordered Cefdinir 300 mg PO 1934: Upon reevaluation, the patient appeared to have improvement of his symptoms. I discussed findings with him. He verbalized agreement of the treatment plan. He was discharged home. Medical Decision Differential diagnosis: Etiologies such as metabolic, infection, hypo/hyperglycemia, electrolyte abnormalities, cardiac sources, intracerebral event, toxicologic, neurologic, as well as others were entertained. This pt was evaluated and appeared to be in no distress. IV access was obtained and lab work was drawn. Records were reviewed. Pt has one +blood culture and one negative on his last visit. He was placed on cipro for + UA. Urine cx is negative. Lab work today reveals an improved WBC and worsened creatinine. At the advice of the clinical pharmacist the cipro was d/c. As the pt states he is feeling better and WBC is improved, omnicef 300 mg ONCE daily was Rx. It is not 100% clear what the source of infection maybe, but I believe the +BC is contaminate. 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 He prefers d/c to observation. He will return to the ED for worsening of symptoms or any medical concerns. Medication Reconcilliation Current Medication List: was personally reviewed by me Blood Pressure Screening Patient's blood pressure: Normal blood pressure Blood pressure disposition: Did not require urgent referral Impression Primary Impression: Acute kidney injury Additional Impression: Fever Scribe Attestation The scribe's documentation has been prepared under my direction and personally reviewed by me in its entirety. I confirm that the note above accurately reflects all work, treatment, procedures, and medical decision making performed by me. Departure Information Dispostion Home / Self-Care Prescriptions Cefdinir (Omnicef) 300 Mg Cap 300 MG PO DAILY, #6 CAP Prov: Yenny Hernandez M.D. 06/07/17 Referrals Winston Harper M.D. (PCP) Forms HOME CARE DOCUMENTATION FORM, IMPORTANT VISIT INFORMATION, WORK / SCHOOL INSTRUCTIONS Patient Instructions My [facility] Additional Instructions Diagnosis: Acute kidney injury, fever Omnicef 300 mg once daily for 7 days. Please drink plenty of clear fluids. Stop the Cipro. Follow-up with Dr. Dan tomorrow by telephone for further management. Return to the emergency department immediately for a fever greater than 101F. Problem Qualifiers
[2017-06-07 17:21] LABS: BASO % 0.1 %; BASO ABS # 0.01 K/uL (0-0.2); COMPLETE YES; EOS % 0.1 %; HEMATOCRIT 32.7 % (42-52); IG% 0.3 %; LYMPH % 5.2 %; LYMPH ABS # 0.61 K/uL (1.2-3.4); MEAN CELL VOLUME 91.9 fL (80-100); MEAN CORPUSCULAR HEMOGLOBIN 29.8 pg (25-34); MEAN CORPUSCULAR HGB CONC 32.4 g/dl (32-36); MEAN PLATELET VOLUME 9.1 fL (7.4-10.4); MONO % 8.5 %; NEUT % 85.8 %; PLATELET COUNT 241 K/uL (130-400); RED BLOOD COUNT 3.56 M/uL (4.7-6.1); WHITE BLOOD COUNT 11.75 K/uL (4.8-10.8)
[2017-06-07 17:41] LABS: BUN/CREATININE RATIO 32.1 (10-20); CALCIUM 8.8 mg/dl (8.5-10.1); POTASSIUM 4.5 mmol/L (3.5-5.1)
[2017-06-07] MEDS ORDERED: CEFD1CAP14 PO (19:02)
[2017-06-07 19:05] LABS: INR 2.1 (0.9-1.1); PARTIAL THROMBOPLASTIN RATIO 1.7; PROTHROMBIN TIME (PATIENT) 22.9 SECONDS (9.0-12.0)
[2017-06-07] MEDS ORDERED: CEFDINIR 300 MG CAP PO ONE ×2 (19:15→19:30)
[2017-06-07 19:32] VITALS: BP 131/62; PULSE 53; TEMP 36.9; O2SAT 97
[2017-06-21] MEDS ORDERED: HUMALOG MIX SQ (13:55)
== END 2017-06-07 19:33 | disposition home or self-care (01) ==
LOC: C.EDB 15:04 → C.EDA 19:33
DX: N17.9 Acute kidney failure, unspecified (principal); R50.9 Fever, unspecified; I48.91 Unspecified atrial fibrillation; D64.9 Anemia, unspecified; I25.10 Atherosclerotic heart disease of native coronary artery without angina pectoris; J44.9 Chronic obstructive pulmonary disease, unspecified; E11.43 Type 2 diabetes mellitus with diabetic autonomic (poly)neuropathy; E78.5 Hyperlipidemia, unspecified; N25.81 Secondary hyperparathyroidism of renal origin; G47.30 Sleep apnea, unspecified; N18.3 Chronic kidney disease, stage 3 (moderate); I12.9 Hypertensive chronic kidney disease with stage 1 through stage 4 chronic kidney disease, or unspecified chronic kidney disease; Z95.1 Presence of aortocoronary bypass graft; Z83.3 Family history of diabetes mellitus; Z82.49 Family history of ischemic heart disease and other diseases of the circulatory system; Z79.899 Other long term (current) drug therapy; Z79.4 Long term (current) use of insulin

== ENCOUNTER → 2017-06-13 | Outpatient (CLI) | payer OTHER ==
[~2017-06-13] MED LIST changes: -BUDE1SUS NEB; +CEFD1CAP14 PO; -CIPR1TAB10 PO; +CPR/500 PO; +HUMALOG MIX SQ
[2017-06-13 13:33] LABS: BASO % 0.3 %; BASO ABS # 0.02 K/uL (0-0.2); COMPLETE YES; EOS % 3.7 %; HEMATOCRIT 33.5 % (42-52); IG% 2.5 %; LYMPH % 13.2 %; MEAN CELL VOLUME 94.1 fL (80-100); MEAN CORPUSCULAR HEMOGLOBIN 30.9 pg (25-34); MEAN CORPUSCULAR HGB CONC 32.8 g/dl (32-36); MEAN PLATELET VOLUME 8.8 fL (7.4-10.4); NEUT % 70.3 %; PLATELET COUNT 355 K/uL (130-400); RED BLOOD COUNT 3.56 M/uL (4.7-6.1)
[2017-06-13 14:17] LABS: BLOOD UREA NITROGEN 41 mg/dl (7-18); BUN/CREATININE RATIO 31.4 (10-20); CALCIUM 8.1 mg/dl (8.5-10.1); CARBON DIOXIDE 25 mmol/L (21-32); CHLORIDE 106 mmol/L (98-107); GLUCOSE 50 mg/dl (70-99); PHOSPHORUS 3.1 mg/dl (2.5-4.9); POTASSIUM 4.2 mmol/L (3.5-5.1); SODIUM 141 mmol/L (136-145); TOTAL IRON BINDING CAPACITY 232 mcg/dl (250-450)
[2017-06-13 14:25] LABS: FERRITIN 146.1 ng/ml (8.0-388.0); MAGNESIUM 2.3 mg/dl (1.8-2.4)
== END | disposition home or self-care (01) ==
LOC: C.LABBC 10:06
PROVIDERS: ATTEND Internal Medicine Nephrology
DX: N18.3 Chronic kidney disease, stage 3 (moderate) (principal)

== ENCOUNTER → 2017-08-16 | Outpatient (CLI) | payer OTHER ==
[~2017-08-16] MED LIST changes: -CEFD1CAP14 PO; -CPR/500 PO; +DOXY100C76 PO; -FERR1TAB23; +FERR1TAB23 PO
[2017-08-16 14:00] LABS: BASO % 0.2 %; BASO ABS # 0.01 K/uL (0-0.2); COMPLETE YES; EOS % 3.8 %; HEMATOCRIT 36.8 % (42-52); IG% 0.5 %; LYMPH % 14.2 %; LYMPH ABS # 0.89 K/uL (1.2-3.4); MEAN CELL VOLUME 98.4 fL (80-100); MEAN CORPUSCULAR HGB CONC 31.5 g/dl (32-36); MEAN PLATELET VOLUME 9.2 fL (7.4-10.4); MONO % 10.2 %; NEUT % 71.1 %; PLATELET COUNT 229 K/uL (130-400); RED BLOOD COUNT 3.74 M/uL (4.7-6.1); WHITE BLOOD COUNT 6.27 K/uL (4.8-10.8)
[2017-08-16 14:18] LABS: BLOOD UREA NITROGEN 39 mg/dl (7-18); BUN/CREATININE RATIO 23.2 (10-20); CALCIUM 9.1 mg/dl (8.5-10.1); CARBON DIOXIDE 26 mmol/L (21-32); CHLORIDE 104 mmol/L (98-107); CREATININE 1.68 mg/dl (0.60-1.40); GLUCOSE 131 mg/dl (70-99); MAGNESIUM 2.3 mg/dl (1.8-2.4); POTASSIUM 4.6 mmol/L (3.5-5.1); SODIUM 140 mmol/L (136-145)
[2017-08-16 14:20] LABS: PHOSPHORUS 3.6 mg/dl (2.5-4.9)
== END | disposition home or self-care (01) ==
LOC: C.LABBC 11:41
PROVIDERS: ATTEND Internal Medicine Nephrology
DX: N18.3 Chronic kidney disease, stage 3 (moderate) (principal)

== ENCOUNTER 2017-08-30 22:09 | Emergency (ER) | payer OTHER ==
[~2017-08-30] VITALS: Ht 175.3 cm; Wt 123.0 kg
[~2017-08-30 22:09] MED LIST changes: +FRS/40 PO; -FURO-85 PO; -HUMALOG MIX SQ
[2017-08-30 22:14] VITALS: TEMP 36.3; Ht 175.3 cm; Wt 123.0 kg
[2017-08-30] MEDS ORDERED: INSHI7030 SC (22:42)
[2017-08-30] MEDS ORDERED: GELATIN SPONGE 12-7MM EXT ONE (22:45)
--- NOTE | 2017-08-30 22:47 | EMERGENCY ROOM VISIT NOTE ---
ED Visit Note First contact with patient: 22:20 CHIEF COMPLAINT: Facial bleeding HISTORY OF PRESENT ILLNESS: This 81-year-old male who is on Coumadin presents the ER with chief complaint that he scratched his left facial cheek today and could not get it to stop bleeding. He states it finally stopped bleeding. He had missed his appointment for his INR today and he called the Coumadin clinic and they told him to come to the ER to get an INR. The patient currently does not have any active bleeding. He is requesting a finger stick for the PT/INR. REVIEW OF SYSTEMS: 6 system review was performed and was negative unless stated otherwise in history of present illness. PMH: The patient is healthy; see chronic problem list SOCIAL HISTORY: Patient lives at home. PHYSICAL EXAM: Vital Signs: Were reviewed Reviewed Nurse's notes. GEN.: 81-year -old male appears in no acute distress. MENTAL STATUS: Alert and oriented 3. FACE: There is a superficial abrasion noted over the left zygomatic arch without any active bleeding at this time. The abrasion looks clean. EMERGENCY DEPARTMENT COURSE: The patient was evaluated. Point of care PT/INR was ordered. Patient's INR was 2.1 which is therapeutic. The patient then told me that his wound had started bleeding again later today when he had taken off the bandage which is when he could not get it to stop. The patient was given a small piece of Gelfoam to use as needed if it restarts. The patient was discharged home in stable condition. DIAGNOSIS: Facial abrasion Coumadin therapy DISCHARGE INSTRUCTIONS: If the wound starts bleeding again apply pressure. If it does not stop bleeding apply the gel foam and a pressure bandage. Remove the gel foam in 24 hours by saturating it in water so that the wound does not start bleeding again. Patient condition was: stable. Please see Emergency Department Medical Record for additional patient information; this may include discharge diagnosis, interpretation of EKG, laboratory, and/or radiologic studies, Emergency Department course, etc. Problem List Medical Problems: (1) A-fib Status: Chronic (2) Anemia Status: Chronic (3) ASCVD (arteriosclerotic cardiovascular disease) Status: Chronic (4) CHF (congestive heart failure) Status: Chronic (5) COPD (chronic obstructive pulmonary disease) Status: Chronic (6) Dermatitis, seborrheic Status: Chronic (7) Diabetes Status: Chronic (8) Elevated alkaline phosphatase level Status: Chronic (9) Elevated LFTs Status: Chronic (10) Hyperlipidemia Status: Chronic (11) Hypertension Status: Chronic (12) Hypothyroid Status: Chronic (13) Ichthyosis Status: Chronic (14) Painful diabetic neuropathy Status: Chronic (15) Pulmonary hypertension Status: Chronic (16) Secondary hyperparathyroidism Status: Chronic (17) Sleep apnea Status: Chronic (18) Stage 3 chronic kidney disease Status: Chronic Surgical Problems: (1) Hx of CABG Status: Resolved Current/Historical Medications Scheduled Doxycycline Monohydrate (Monodox), 100 MG PO BID Ergocalciferol (Vitamin D 70965 Unit), 50,000 INTER.UNIT PO WK Ferrous Sulfate (Iron), 325 MG PO DAILY Furosemide (Lasix), 20 MG PO BID Insulin Human Isophan/Regular (Humulin 70/30), 15 UNITS SC BID Levothyroxine Sodium (Levothyroxine Sodium), 100 MCG PO DAILY Probiotic Product ([email or web address]), 1 CAP PO DAILY Simvastatin (Zocor), 20 MG PO DAILY Tamsulosin Hcl (Flomax), 0.4 MG PO QAM Warfarin Sod (Coumadin), 2.5 MG PO 3XWK Warfarin Sod (Coumadin), 5 MG PO 4XWK Scheduled PRN Home O2 Therapy (Oxygen), 1.5 LITER NA HS PRN for Shortness of Breath Hydrocodone/Acetaminophen 10MG/325MG ([place] 10MG/325MG), 1 TAB PO TID PRN for Pain Ipratropium-Albuterol (Duoneb), 1 TREATMENT INH TID PRN for Shortness of Breath Miconazole Nitrate (Desenex Shake Powder), 1 APPLN EXT DAILY PRN for Itching Miscellaneous Medications Albuterol Hfa (Ventolin Hfa), 1-2 PUFFS INH Allergies Coded Allergies: Chlorpheniramine (Verified Allergy, Intermediate, "CAUSE PROSTATE TO ENLARGE", 08/30/17) Phenylpropanolamine (Verified Allergy, Intermediate, "CAUSE PROSTATE TO ENLARGE"., 08/30/17) Linezolid (Verified Adverse Reaction, Intermediate, GI SYMPTOMS, 08/30/17) Concommitant GI bleed Vital Signs Date Time Temp Pulse Resp B/P (MAP) Pulse Ox O2 Delivery O2 Flow Rate FiO2 08/30/17 22:14 36.3 78 20 124/63 97 Room Air Departure Information Referrals Winston Harper M.D. (PCP) Patient Instructions [facility]
[2017-08-30 23:03] VITALS: BP 115/51; PULSE 45; O2SAT 94
== END 2017-08-30 23:04 | disposition home or self-care (01) ==
LOC: C.EDB 22:11 → C.EDA 23:04
DX: S00.81XA Abrasion of other part of head, initial encounter (principal); W26.8XXA Contact with other sharp object(s), not elsewhere classified, initial encounter; Z79.01 Long term (current) use of anticoagulants; I13.0 Hypertensive heart and chronic kidney disease with heart failure and stage 1 through stage 4 chronic kidney disease, or unspecified chronic kidney disease; I48.91 Unspecified atrial fibrillation; E11.22 Type 2 diabetes mellitus with diabetic chronic kidney disease; E11.42 Type 2 diabetes mellitus with diabetic polyneuropathy; N18.3 Chronic kidney disease, stage 3 (moderate); I50.9 Heart failure, unspecified; N25.81 Secondary hyperparathyroidism of renal origin; I25.10 Atherosclerotic heart disease of native coronary artery without angina pectoris; D64.9 Anemia, unspecified; J44.9 Chronic obstructive pulmonary disease, unspecified; E78.5 Hyperlipidemia, unspecified; E03.9 Hypothyroidism, unspecified; Q80.9 Congenital ichthyosis, unspecified; I27.20 Pulmonary hypertension, unspecified; Z95.1 Presence of aortocoronary bypass graft; Z79.4 Long term (current) use of insulin

== ENCOUNTER → 2017-10-26 | Outpatient (CLI) | payer OTHER ==
[~2017-10-26] MED LIST changes: +FEBU40TA PO; -HMLI7525 SC; +INSHI7030 SC
--- NOTE | 2017-10-26 13:51 | DIAGNOSTIC IMAGING REPORT ---
ULTRASOUND ANKLE-BRACHIAL INDICES CLINICAL HISTORY: Resting pain in the left foot. COMPARISON STUDY: No priors. FINDINGS: Ankle-brachial indices are calculated in ultrasound. Left brachial pressure measures 137 and right brachial pressure measures 128. Pressures in the right posterior tibial artery measure 137, MICHAEL of 0.95, and pressures in the right dorsalis pedis artery measure 129 for an MICHAEL of 0.94. Pressures in the left dorsalis pedis artery measure 94 for an MICHAEL of 0.69. The left posterior tibial artery was noncompressible and ankle-brachial indices could not be assessed. IMPRESSION: Ankle-brachial indices as above. Dictated: 10/26/2017 1:42 PM Transcribed: 10/26/2017 1:51 PM [email or web address] Electronically signed by: Shadi Walton M.D. 10/26/2017 2:00 PM Dictated Date/Time: 10/26/2017 1:42 PM
== END | disposition home or self-care (01) ==
LOC: C.ULTR 12:28
PROVIDERS: ATTEND Podiatrist
DX: E11.51 Type 2 diabetes mellitus with diabetic peripheral angiopathy without gangrene (principal)

== ENCOUNTER → 2017-11-14 | Outpatient (CLI) | payer OTHER ==
[2017-11-14 16:50] LABS: BASO % 0.5 %; BASO ABS # 0.04 K/uL (0-0.2); EOS % 10.9 %; EOS ABS # 0.87 K/uL (0-0.5); HEMATOCRIT 36.9 % (42-52); HEMOGLOBIN 12.3 g/dL (14.0-18.0); IG# 0.03 K/uL (0.00-0.02); LYMPH % 10.1 %; LYMPH ABS # 0.81 K/uL (1.2-3.4); MEAN CELL VOLUME 97.6 fL (80-100); MEAN CORPUSCULAR HEMOGLOBIN 32.5 pg (25-34); MEAN CORPUSCULAR HGB CONC 33.3 g/dl (32-36); MEAN PLATELET VOLUME 9.2 fL (7.4-10.4); MONO % 7.9 %; MONO ABS # 0.63 K/uL (0.11-0.59); NEUT % 70.2 %; NEUT ABS # 5.61 K/uL (1.4-6.5); PLATELET COUNT 182 K/uL (130-400); RED CELL DISTRIBUTION WIDTH CV 15.1 % (11.5-14.5); RED CELL DISTRIBUTION WIDTH SD 53.6 fL (36.4-46.3); WHITE BLOOD COUNT 7.99 K/uL (4.8-10.8)
[2017-11-14 17:23] LABS: ALBUMIN 3.5 gm/dl (3.4-5.0); ALT/SGPT 38 U/L (12-78); BLOOD UREA NITROGEN 48 mg/dl (7-18); CALCIUM 8.6 mg/dl (8.5-10.1); CARBON DIOXIDE 26 mmol/L (21-32); CHOLESTEROL 129 mg/dl (0-200); CREATININE 1.77 mg/dl (0.60-1.40); GLUCOSE 154 mg/dl (70-99); LDL CHOLESTEROL CALCULATED 39 mg/dl; POTASSIUM 4.4 mmol/L (3.5-5.1); SODIUM 141 mmol/L (136-145)
[2017-11-14 17:33] LABS: ALKALINE PHOSPHATASE 506 U/L (45-117); AST/SGOT 38 U/L (15-37); TOTAL PROTEIN 7.5 gm/dl (6.4-8.2); TRANSFERRIN 223 mg/dl (200-360)
[2017-11-15 07:09] LABS: HEMOGLOBIN A1C 7.1 % (4.5-5.6)
== END | disposition home or self-care (01) ==
LOC: C.LABBC 14:45
PROVIDERS: ATTEND Internal Medicine
DX: N18.3 Chronic kidney disease, stage 3 (moderate) (principal)

== ENCOUNTER → 2017-11-26 | Outpatient (CLI) | payer OTHER ==
--- NOTE | 2017-11-26 15:38 | DIAGNOSTIC IMAGING REPORT ---
CHEST 2 VIEWS ROUTINE HISTORY: 82 years-old Male R06.00 [id number] acute dyspnea COMPARISON: Chest radiograph 06/04/2017 TECHNIQUE: PA and lateral views of the chest FINDINGS: Postoperative changes of the sternum and anterior chest wall redemonstrated. Cardiac silhouette is again enlarged, unchanged. Atherosclerosis of the aorta. Mild pulmonary vascular congestion without overt pulmonary edema. There is no pneumothorax or large pleural effusion identified. Mild right hemidiaphragm elevation with right cardiophrenic angle opacity suggesting atelectasis. Degenerative changes are noted throughout the spine and shoulders. IMPRESSION: 1. Cardiomegaly with mild pulmonary vascular congestion. 2. Right hemidiaphragm elevation with subsegmental right basilar opacities suggesting atelectasis. The above report was generated using voice recognition software. It may contain grammatical, syntax or spelling errors. Electronically signed by: Juan Pablo Murphy M.D. 11/26/2017 3:37 PM Dictated Date/Time: 11/26/2017 3:34 PM
[2017-11-26 17:20] LABS: BLOOD UREA NITROGEN 65 mg/dl (7-18); CARBON DIOXIDE 23 mmol/L (21-32); CREATININE 2.14 mg/dl (0.60-1.40); GLUCOSE 111 mg/dl (70-99); POTASSIUM 4.2 mmol/L (3.5-5.1); SODIUM 140 mmol/L (136-145)
[2017-11-27 13:45] LABS: BASO % 0.3 %; BASO ABS # 0.03 K/uL (0-0.2); EOS % 6.7 %; EOS ABS # 0.58 K/uL (0-0.5); HEMATOCRIT 34.8 % (42-52); LYMPH % 12.7 %; LYMPH ABS # 1.09 K/uL (1.2-3.4); MEAN CELL VOLUME 99.7 fL (80-100); MEAN CORPUSCULAR HEMOGLOBIN 31.5 pg (25-34); MEAN CORPUSCULAR HGB CONC 31.6 g/dl (32-36); MEAN PLATELET VOLUME 9.2 fL (7.4-10.4); MONO % 9.2 %; MONO ABS # 0.79 K/uL (0.11-0.59); NEUT % 69.9 %; NEUT ABS # 6.02 K/uL (1.4-6.5); PLATELET COUNT 232 K/uL (130-400); RED CELL DISTRIBUTION WIDTH CV 16.2 % (11.5-14.5); RED CELL DISTRIBUTION WIDTH SD 58.6 fL (36.4-46.3); WHITE BLOOD COUNT 8.61 K/uL (4.8-10.8)
== END | disposition home or self-care (01) ==
LOC: C.RADBC 14:24
PROVIDERS: ATTEND Physician Assistant Medical
DX: R06.00 Dyspnea, unspecified (principal); R73.9 Hyperglycemia, unspecified

== ENCOUNTER → 2017-11-29 | Outpatient (CLI) | payer OTHER ==
[~2017-11-29] MED LIST changes: +FLM4 PO; +LSX20 PO; +PRS5 PO
[2017-11-29 14:21] LABS: BLOOD UREA NITROGEN 62 mg/dl (7-18); CALCIUM 8.6 mg/dl (8.5-10.1); CARBON DIOXIDE 24 mmol/L (21-32); CREATININE 2.31 mg/dl (0.60-1.40); GLUCOSE 141 mg/dl (70-99); SODIUM 139 mmol/L (136-145)
== END | disposition home or self-care (01) ==
LOC: C.LABBC 10:20
PROVIDERS: ATTEND Internal Medicine
DX: Z00.00 Encounter for general adult medical examination without abnormal findings (principal); I10 Essential (primary) hypertension; N18.3 Chronic kidney disease, stage 3 (moderate); R74.8 Abnormal levels of other serum enzymes; J20.9 Acute bronchitis, unspecified; R73.9 Hyperglycemia, unspecified; E03.9 Hypothyroidism, unspecified; E78.5 Hyperlipidemia, unspecified

== ENCOUNTER 2017-12-02 23:02 | Observation (INO) | payer OTHER ==
[~2017-12-02] VITALS: Ht 175.3 cm; Wt 127.8 kg
[~2017-12-02 23:02] MED LIST changes: -FLM4 PO; -LSX20 PO; -PRS5 PO
--- NOTE | 2017-12-03 00:06 | EMERGENCY ROOM VISIT NOTE ---
History Report prepared by Derick: Jonna Jeffers Under the Supervision of: Dr. Houston Luis M.D. First contact with patient: 23:50 Chief Complaint: RESPIRATORY PROBLEMS Stated Complaint: CONGESTIVE HEART FAILURE History of Present Illness The patient is an 82 year old male who presents to the Emergency Room with complaints of persistent general shortness of breath with exertion for two weeks. The patient has a history of CHF. He had laboratory workup two days ago and was notified yesterday that his kidneys are worsening. He states that his abdomen is abnormally distended. He reports a recent weight gain of 15 pounds over the weekend. He is currently taking Lasix 100 mg. He notes urinary symptoms with very little urine output. He was able to urinate 30 minutes ago, though he states it was a very small amount. He denies feeling the need to urinate. He reports an increased thirst. He reports a rash for three weeks. He denies chest pain, fevers, lightheadedness, or dizziness. He has a history of triple bypass surgery. He regularly takes Coumadin. He regularly follows up with the coagulation center. Source of History: patient, family Onset: two weeks Position: other (general) Quality: other (shortness of breath) Timing: other (persistent) Modifying Factors (Worsening): exertion Associated Symptoms: + urinary symptoms (little urine output), + rash, No fevers, No chest pain Note: He notes abdominal distention and recent weight gain. He notes increased thirst. He denies any lightheadedness or dizziness. Review of Systems See HPI for pertinent positives & negatives. A total of 10 systems reviewed and were otherwise negative. 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 Nurse's notes were reviewed and I agree with. Family History FH: diabetes mellitus FH: hypertension Social History Smoking Status: Never Smoker Drug Use: none Marital Status: Housing Status: lives with significant other Occupation Status: retired Current/Historical Medications Scheduled Doxycycline Monohydrate (Monodox), 100 MG PO BID Ergocalciferol (Vitamin D 10401 Unit), 50,000 INTER.UNIT PO WK Ferrous Sulfate (Iron), 325 MG PO DAILY Furosemide (Lasix), 60 MG PO QAM Furosemide (Lasix), 40 MG PO PM Insulin Human Isophan/Regular (Humulin 70/30), 20 UNITS SC HS Levothyroxine Sodium (Levothyroxine Sodium), 100 MCG PO DAILY Probiotic Product (Blogvio), 1 CAP PO DAILY Simvastatin (Zocor), 20 MG PO DAILY Tamsulosin Hcl (Flomax), 0.4 MG PO QAM Warfarin Sod (Coumadin), 2.5 MG PO 2XWK Warfarin Sod (Coumadin), 5 MG PO 5XWK Scheduled PRN Albuterol Hfa (Ventolin Hfa), 1-2 PUFFS INH Q4 PRN for SOB/Wheezing Home O2 Therapy (Oxygen), 1.5 LITER NA HS PRN for Shortness of Breath Hydrocodone/Acetaminophen 10MG/325MG ([place] 10MG/325MG), 1 TAB PO TID PRN for Pain Ipratropium-Albuterol (Duoneb), 1 TREATMENT INH TID PRN for Shortness of Breath Miconazole Nitrate (Desenex Shake Powder), 1 APPLN EXT DAILY PRN for Itching Allergies Coded Allergies: Chlorpheniramine (Verified Allergy, Intermediate, "CAUSE PROSTATE TO ENLARGE", 12/03/17) Phenylpropanolamine (Verified Allergy, Intermediate, "CAUSE PROSTATE TO ENLARGE"., 12/03/17) Linezolid (Verified Adverse Reaction, Intermediate, GI SYMPTOMS, 12/03/17) Concommitant GI bleed Physical Exam Vital Signs Date Time Temp Pulse Resp B/P (MAP) Pulse Ox O2 Delivery O2 Flow Rate FiO2 12/03/17 02:34 58 12/03/17 00:39 57 16 132/63 97 Room Air 12/03/17 00:35 97 Room Air 12/03/17 00:15 58 12/02/17 23:13 36.3 57 20 124/68 94 Room Air Physical Exam General: Chronically-ill appearing older male in no acute distress. HEENT: Normal cephalic atraumatic. Pupils are equal round and reactive to light. Extraocular movements are intact. Oropharynx is pink with moist mucous membranes. No swelling of the mouth lips or tongue. Neck: Supple with a midline trachea. No meningeal signs or stiffness, no JVD or bruits. No Stridor. Chest: Clear to auscultation bilaterally. No wheezes or rhonchi. No increased work of breathing. Heart: regular rate and rhythm. Abdomen: Soft nontender, nondistended without rebound guarding or rigidity. Extremities: No cyanosis.. No calf tenderness or assymetry. Edema of his legs up into his abdomen Spine/Back. Non tender to palpation. No CVA tenderness Skin: Good turgor without rashes. Neurologic exam: Cranial nerves two through 12 are intact. Motor and sensation are intact and symmetrical throughout. Medical Decision & Procedures ER Provider Diagnostic Interpretation: Radiology results as stated below per my review interpretation: Chest x-ray per my interpretation reveals cardiomegaly, mild congestive changes. No pneumothorax or infiltrate. Laboratory Results 12/03/17 00:15 Red Blood Count 3.34, Mean Corpuscular Volume 98.5, Mean Corpuscular Hemoglobin 32.6, Mean Corpuscular Hemoglobin Concent 33.1, Mean Platelet Volume 8.7, Neutrophils (%) (Auto) 81.0, Lymphocytes (%) (Auto) 7.1, Monocytes (%) (Auto) 8.3, Eosinophils (%) (Auto) 2.7, Basophils (%) (Auto) 0.4, Neutrophils # (Auto) 6.92, Lymphocytes # (Auto) 0.61, Monocytes # (Auto) 0.71, Eosinophils # (Auto) 0.23, Basophils # (Auto) 0.03 12/03/17 00:15 Test 12/03/17 00:15 12/03/17 00:16 White Blood Count 8.54 K/uL (4.8-10.8) Red Blood Count 3.34 M/uL (4.7-6.1) Hemoglobin 10.9 g/dL (14.0-18.0) Hematocrit 32.9 % (42-52) Mean Corpuscular Volume 98.5 fL (80-100) Mean Corpuscular Hemoglobin 32.6 pg (25-34) Mean Corpuscular Hemoglobin Concent 33.1 g/dl (32-36) Platelet Count 219 K/uL (130-400) Mean Platelet Volume 8.7 fL (7.4-10.4) Neutrophils (%) (Auto) 81.0 % Lymphocytes (%) (Auto) 7.1 % Monocytes (%) (Auto) 8.3 % Eosinophils (%) (Auto) 2.7 % Basophils (%) (Auto) 0.4 % Neutrophils # (Auto) 6.92 K/uL (1.4-6.5) Lymphocytes # (Auto) 0.61 K/uL (1.2-3.4) Monocytes # (Auto) 0.71 K/uL (0.11-0.59) Eosinophils # (Auto) 0.23 K/uL (0-0.5) Basophils # (Auto) 0.03 K/uL (0-0.2) RDW Standard Deviation 59.1 fL (36.4-46.3) RDW Coefficient of Variation 16.6 % (11.5-14.5) Immature Granulocyte % (Auto) 0.5 % Immature Granulocyte # (Auto) 0.04 K/uL (0.00-0.02) Prothrombin Time 19.7 SECONDS (9.0-12.0) Prothromb Time International Ratio 1.9 (0.9-1.1) Activated Partial Thromboplast Time 36.0 SECONDS (21.0-31.0) Partial Thromboplastin Ratio 1.4 Anion Gap 10.0 mmol/L (3-11) Est Creatinine Clear Calc Drug Dose 30.9 ml/min Estimated GFR () 27.6 Estimated GFR (Non- 23.9 BUN/Creatinine Ratio 30.5 (10-20) Calcium Level 8.5 mg/dl (8.5-10.1) Total Bilirubin 0.7 mg/dl (0.2-1) Direct Bilirubin 0.4 mg/dl (0-0.2) Aspartate Amino Transf (AST/SGOT) 49 U/L (15-37) Alanine Aminotransferase (ALT/SGPT) 35 U/L (12-78) Alkaline Phosphatase 685 U/L (45-117) Total Creatine Kinase 205 U/L (39-308) Creatine Kinase MB 5.1 ng/ml (0.5-3.6) Creatine Kinase MB Ratio 2.5 (0-3.0) Pro-B-Type Natriuretic Peptide 7787 pg/ml (0-1800) Total Protein 7.3 gm/dl (6.4-8.2) Albumin 3.2 gm/dl (3.4-5.0) Lipase 234 U/L (73-393) Thyroid Stimulating Hormone (TSH) 2.650 uIu/ml (0.300-4.500) Bedside Troponin I 0.030 ng/ml (0-0.045) Laboratory studies as stated above per my review. ECG Per My Interpretation Indication: SOB/dyspnea Rate (beats per minute): 62 Rhythm: atrial fibrillation Findings: LBBB, no acute ischemic change Change: no significant change (when compared to 04/11/2017) ED Course 2355: Past medical records reviewed. The patient was evaluated in room C10, and a complete history and physical examination were performed. 0020: I reassessed the patient at this time. The nurse obtained a straight catheter, though there was no urine. 0141: I reassessed the patient at this time. He appeared comfortable. 0200: I spoke with Dr. Moreau, [facility] hospitalist. We discussed the patient's case. The patient will be evaluated by the [facility] for further management. Medical Decision Differentials include, but are not limited to: CHF, dehydration, ACS, arrhythmia , infection, and electrolyte or metabolic abnormality. This patient comes in as described above. He was placed in room C10. Here for treatment and evaluation of worsening kidney function and edema. He does have a history of CHF and apparently the kidney functions been going up. He was started on a med for gout several weeks ago which they stopped last couple weeks. He is also had a rash for several weeks. He appears non-ill appearing. he feels like it is swollen in his lower abdomen. Urine outputs been decreased. We did a cath on him there is no urine. His creatinine is elevated to 2.4 up from baseline about 1.7. Chest x-ray shows cardiomegaly and may have some congestive changes his BNP is also elevated. EKG shows baseline A. fib without ischemic changes. His INR is slightly subtherapeutic at 1.9. I do think he needs to be admitted/observe for renal and cardiology consultation. I think he looks most likely is intravascularly dry but has peripheral edema. I did also order CT without contrast to rule out any sort of obstructive uropathy. He did subsequently urinated in the ER. I have consulted Dr. Spencer to see him in the ER for these measures. Medication Reconcilliation Current Medication List: was personally reviewed by me Blood Pressure Screening Patient's blood pressure: Normal blood pressure Consults Time Called: 0200 Consulting Physician: Dr. Moreau, [facility] hospitalist I spoke with Dr. Moreau, [facility] hospitalist. We discussed the patient's case. The patient will be evaluated by the [facility] for further management. Impression Primary Impression: CHF (congestive heart failure) Additional Impression: Renal failure Scribe Attestation The scribe's documentation has been prepared under my direction and personally reviewed by me in its entirety. I confirm that the note above accurately reflects all work, treatment, procedures, and medical decision making performed by me. Departure Information Dispostion Being Evaluated By Hospitalist Referrals No Doctor, Assigned (PCP) Patient Instructions My [facility] Problem Qualifiers
[2017-12-03 00:25] LABS: BASO % 0.4 %; BASO ABS # 0.03 K/uL (0-0.2); EOS % 2.7 %; EOS ABS # 0.23 K/uL (0-0.5); HEMATOCRIT 32.9 % (42-52); HEMOGLOBIN 10.9 g/dL (14.0-18.0); IG# 0.04 K/uL (0.00-0.02); LYMPH % 7.1 %; LYMPH ABS # 0.61 K/uL (1.2-3.4); MEAN CELL VOLUME 98.5 fL (80-100); MEAN CORPUSCULAR HEMOGLOBIN 32.6 pg (25-34); MEAN CORPUSCULAR HGB CONC 33.1 g/dl (32-36); MEAN PLATELET VOLUME 8.7 fL (7.4-10.4); MONO % 8.3 %; MONO ABS # 0.71 K/uL (0.11-0.59); NEUT ABS # 6.92 K/uL (1.4-6.5); PLATELET COUNT 219 K/uL (130-400); RED CELL DISTRIBUTION WIDTH CV 16.6 % (11.5-14.5); RED CELL DISTRIBUTION WIDTH SD 59.1 fL (36.4-46.3); WHITE BLOOD COUNT 8.54 K/uL (4.8-10.8)
[2017-12-03 00:38] LABS: INR 1.9 (0.9-1.1)
[2017-12-03 00:43] LABS: ALBUMIN 3.2 gm/dl (3.4-5.0); CALCIUM 8.5 mg/dl (8.5-10.1); CREATININE 2.43 mg/dl (0.60-1.40); POTASSIUM 4.2 mmol/L (3.5-5.1)
[2017-12-03 00:54] LABS: CKMB 5.1 ng/ml (0.5-3.6); TOTAL PROTEIN 7.3 gm/dl (6.4-8.2)
--- NOTE | 2017-12-03 04:15 | History and Physical ---
History & Physical Date & Time of Service: Dec 03, 2017 at 04:11 Chief Complaint: Congestive Heart Failure Primary Care Physician: Winston Harper M.D. History of Present Illness Source: patient 82 yo male with pMHx CAD w/ CABG x 3 + AVR, a.fib, [place] with pulm HTN, DMII with peripheral neuropathy, HTN, HLD presents to the hospital with abdominal distension and decreased urine output despite recent increases in furosemide, with symptoms ongoing for over a week. No N/V, no abdominal pain, no diarrhea or hematochezia. No urinary symptoms, although unable to determine if urinary retention. He does taken his tamsulosin regularly. No fevers/chills/new back pain, Additionally, patient has noted worsening respiratory symptoms for several weeks. He was recently prescribed Augmentin from his PCP for URTI sx, which has improved his symptoms slowly. He denies orthopnea or PND. He has ongoing/ worsening leg edema bilaterally, and admits to weight gain over the last few weeks. He has not noted a significant decrease in exercise tolerance, ambulates with a walker, unable to climb stairs for a while. Patient is a never smoker, but has seen Dr. Castaneda in the past who diagnosed him with asthma, as per patient. Patient compliant with DuoNeb and budesonide and has noted increased frequency in need. In the ED, noted have elevated creatinine and BNP. Rucker inserted in ED improved distension and drained 1100ml of urine. Past Medical/Surgical History Medical Problems: A-fib Acute kidney injury Anemia ASCVD (arteriosclerotic cardiovascular disease) Cellulitis of left lower extremity Chronic kidney disease Diabetes Hyperlipidemia Hypertension Hypothyroid Hypoxia Ichthyosis [facility] (current) use of anticoagulants MRSA bacteremia Osteomyelitis of left foot Painful diabetic neuropathy Pulmonary hypertension Secondary hyperparathyroidism Sleep apnea Urinary retention Surgical Problems: (1) Hx of CABG Family History FH: diabetes mellitus FH: hypertension Social History Smoking Status: Never Smoker Drug Use: none Marital Status: Housing status: lives with family Occupational Status: retired Immunizations History of Influenza Vaccine: Yes History of Tetanus Vaccine?: Yes History of Pneumococcal: Yes History of Hepatitis B Vaccine: Yes Allergies Coded Allergies: Chlorpheniramine (Verified Adverse Reaction, Intermediate, "CAUSE PROSTATE TO ENLARGE", 12/03/17) Linezolid (Verified Adverse Reaction, Intermediate, GI SYMPTOMS, 12/03/17) Concommitant GI bleed Phenylpropanolamine (Verified Adverse Reaction, Intermediate, "CAUSE PROSTATE TO ENLARGE"., 12/03/17) Home Medications Scheduled Doxycycline Monohydrate (Monodox), 100 MG PO BID Ergocalciferol (Vitamin D 61176 Unit), 50,000 INTER.UNIT PO WK Ferrous Sulfate (Iron), 325 MG PO DAILY Furosemide (Lasix), 60 MG PO QAM Furosemide (Lasix), 40 MG PO PM Insulin Human Isophan/Regular (Humulin 70/30), 20 UNITS SC HS Levothyroxine Sodium (Levothyroxine Sodium), 100 MCG PO DAILY Probiotic Product ([employer] Technology), 1 CAP PO DAILY Simvastatin (Zocor), 20 MG PO DAILY Tamsulosin Hcl (Flomax), 0.4 MG PO QAM Warfarin Sod (Coumadin), 2.5 MG PO 2XWK Warfarin Sod (Coumadin), 5 MG PO 5XWK Scheduled PRN Albuterol Hfa (Ventolin Hfa), 1-2 PUFFS INH Q4 PRN for SOB/Wheezing Home O2 Therapy (Oxygen), 1.5 LITER NA HS PRN for Shortness of Breath Hydrocodone/Acetaminophen 10MG/325MG ([place] 10MG/325MG), 1 TAB PO TID PRN for Pain Ipratropium-Albuterol (Duoneb), 1 TREATMENT INH TID PRN for Shortness of Breath Miconazole Nitrate (Desenex Shake Powder), 1 APPLN EXT DAILY PRN for Itching Physical Exam Vital Signs Date Time Temp Pulse Resp B/P (MAP) Pulse Ox O2 Delivery O2 Flow Rate FiO2 12/03/17 03:26 57 20 101/41 94 Room Air 12/03/17 02:33 59 18 125/60 96 Room Air 12/03/17 00:39 57 16 132/63 97 Room Air 12/03/17 00:35 97 Room Air 12/03/17 00:15 58 12/02/17 23:13 36.3 57 20 124/68 94 Room Air General Appearance: WD/WN, no apparent distress, + obese Head: normocephalic, atraumatic Eyes: normal inspection ENT: hearing grossly normal Neck: supple, + pertinent finding (Unable to assess JVD given obesity) Respiratory/Chest: no respiratory distress, no accessory muscle use, + rhonchi (worse on expiration) Cardiovascular: regular rate, rhythm Abdomen/GI: normal bowel sounds, non tender, soft Back: no CVA tenderness Extremities/Musculoskelatal: no calf tenderness, + pedal edema, + swelling (2+ to above knees bilaterally) Neurologic/Psych: alert, normal mood/affect, oriented x 3 Skin: normal color, warm/dry, + pertinent finding (evidence of chronic edema) Diagnostics Laboratory Results Results Past 24 Hours Test 12/03/17 00:15 12/03/17 00:16 12/03/17 03:30 Range/Units White Blood Count 8.54 4.8-10.8 K/uL Red Blood Count 3.34 4.7-6.1 M/uL Hemoglobin 10.9 14.0-18.0 g/dL Hematocrit 32.9 42-52 % Mean Corpuscular Volume 98.5 80-100 fL Mean Corpuscular Hemoglobin 32.6 25-34 pg Mean Corpuscular Hemoglobin Concent 33.1 32-36 g/dl Platelet Count 219 130-400 K/uL Mean Platelet Volume 8.7 7.4-10.4 fL Neutrophils (%) (Auto) 81.0 % Lymphocytes (%) (Auto) 7.1 % Monocytes (%) (Auto) 8.3 % Eosinophils (%) (Auto) 2.7 % Basophils (%) (Auto) 0.4 % Neutrophils # (Auto) 6.92 1.4-6.5 K/uL Lymphocytes # (Auto) 0.61 1.2-3.4 K/uL Monocytes # (Auto) 0.71 0.11-0.59 K/uL Eosinophils # (Auto) 0.23 0-0.5 K/uL Basophils # (Auto) 0.03 0-0.2 K/uL RDW Standard Deviation 59.1 36.4-46.3 fL RDW Coefficient of Variation 16.6 11.5-14.5 % Immature Granulocyte % (Auto) 0.5 % Immature Granulocyte # (Auto) 0.04 0.00-0.02 K/uL Prothrombin Time 19.7 9.0-12.0 SECONDS Prothromb Time International Ratio 1.9 0.9-1.1 Activated Partial Thromboplast Time 36.0 21.0-31.0 SECONDS Partial Thromboplastin Ratio 1.4 Sodium Level 139 136-145 mmol/L Potassium Level 4.2 3.5-5.1 mmol/L Chloride Level 106 98-107 mmol/L Carbon Dioxide Level 23 21-32 mmol/L Anion Gap 10.0 3-11 mmol/L Blood Urea Nitrogen 74 7-18 mg/dl Creatinine 2.43 0.60-1.40 mg/dl Est Creatinine Clear Calc Drug Dose 30.9 ml/min Estimated GFR () 27.6 Estimated GFR (Non- 23.9 BUN/Creatinine Ratio 30.5 10-20 Random Glucose 154 70-99 mg/dl Calcium Level 8.5 8.5-10.1 mg/dl Total Bilirubin 0.7 0.2-1 mg/dl Direct Bilirubin 0.4 0-0.2 mg/dl Aspartate Amino Transf (AST/SGOT) 49 15-37 U/L Alanine Aminotransferase (ALT/SGPT) 35 12-78 U/L Alkaline Phosphatase 685 45-117 U/L Total Creatine Kinase 205 39-308 U/L Creatine Kinase MB 5.1 0.5-3.6 ng/ml Creatine Kinase MB Ratio 2.5 0-3.0 Pro-B-Type Natriuretic Peptide 7787 0-1800 pg/ml Total Protein 7.3 6.4-8.2 gm/dl Albumin 3.2 3.4-5.0 gm/dl Lipase 234 73-393 U/L Thyroid Stimulating Hormone (TSH) 2.650 0.300-4.500 uIu/ml Bedside Troponin I 0.030 0-0.045 ng/ml Urine Color YELLOW Urine Appearance CLEAR CLEAR Urine pH 5.0 4.5-7.5 Urine Specific [place] 1.015 1.000-1.030 Urine Protein NEG NEG Urine Glucose (UA) NEG NEG Urine Ketones NEG NEG Urine Occult Blood NEG NEG Urine Nitrite NEG NEG Urine Bilirubin NEG NEG Urine Urobilinogen NEG NEG Urine Leukocyte Esterase SMALL NEG Urine WBC (Auto) 1-5 0-5 /hpf Urine RBC (Auto) 0-4 0-4 /hpf Urine Hyaline Casts (Auto) 5-10 0-5 /lpf Urine Epithelial Cells (Auto) 10-20 0-5 /lpf Urine Bacteria (Auto) NEG NEG Microbiology Results 12/03/17 Urine Culture, Received Pending Diagnostic Radiology CXR and CT abdo pelvis pending Prelim CT report: fat containing umbilical hernia with mild fat stranding subcutaneous stranding in anterior abdominal wall non specific mesenteric and retroperitoneal stranding no evidence of bowel obstruction mild distal esophageal wall thickening Diverticulosis distended bladder with multiple diverticula non specific mark-renal stranding. 9.1cm left renal cyst with faint wall calficications 3.1cm adrenal nodule Impression Assessment and Plan 82 yo male with pMHx CAD w/ CABG x 3 + AVR, a.fib, [place] with pulm HTN, DMII with peripheral neuropathy, HTN, HLD presents to the hospital with abdominal distension and decreased urine output despite recent increases in furosemide, No urinary symptoms, although unable to determine if urinary retention. He does taken his tamsulosin regularly. No fevers/chills/new back pain. Additionally, patient has noted worsening respiratory symptoms for several weeks. He was recently prescribed Augmentin from his PCP for URTI sx, which has improved his symptoms slowly. He denies orthopnea or PND. He has ongoing/ worsening leg edema bilaterally, and admits to weight gain over the last few weeks. He has not noted a significant decrease in exercise tolerance, ambulates with a walker, unable to climb stairs for a while. In the ED, noted have elevated creatinine and BNP. Rucker inserted in ED improved distension and drained 1100ml of urine. Acute renal on chronic reanl failure - CKD III - with secondary hyperparathyroidism - Creatinine elevated - UA shows small leuks, cultures pending - Nephrology consulted, per patient's request - Trend BMP BPH/Urinary retention - Rucker inserted - Continue tamsulosin - Monitor I/Os - Urology consulted CHF - Last echo 04/02: * Normal overall left ventricular systolic function, EF 55-60%. * Mild concentric left ventricle hypertrophy. * Right ventricular volume/pressure overload. * Severe pulmonary hypertension. * Moderate biatrial dilatation. * Properly functioning bioprosthetic aortic valve. Appropriate gradient for a bioprosthetic valve. * Mild mitral, tricuspid, and pulmonic regurgitation. * Mild mitral stenosis. - Diureses with IV furosemide 40mg BID - Monitor I/Os, daily weights - Await final read on CXR Asthma - Continue home inhalers Permanent Atrial fibrillation - Rate controlled without any medication - Anticoagulated with warfarin - Trend INR Normocytic Anemia - chronic - at baseline Coronary artery disease / prosthetic aortic valve / Hyperlipidemia / Hypertension - Continue simvastatin - No HTN meds at baseline T2DM with neuropathy - Novolog + BSG ac/hs - Continue pain meds Hypothyroid - Continue levothyroxine Sleep apnea with severe pulm HTN - May use own CPAP at night with 2L O2 VTE Prophylaxis - anticoagulated with warfarin Code - Full Resident Physician Supervision Note: I was present with Dr. Bates during the history and exam. I discussed the case with the resident and agree with the findings and plan as documented in the note. Any exceptions or clarifications are listed here: 82 y/o M Hx CAD, AVR, AF, [place] with pulm HTN, DMII, HTN, HLD presents with abdominal distension and decreased urine output - symptoms present for one week - had increased his Lasix dose at home - In ER had bladder distention - Rucker inserted and expressed 1600cc. Clinical exam and imaging are consistent with volume overload - labs notable for acute on chronic RF. OE AAO x 3 S1,2 faint, irreg CTAB Soft abdomen - follows rucker placement + edema and chronic stasis changes P: Will consult urology or retention - nephrology consulted by pt request Diuresis provided - will need to trend BMP as increase in creat may be combination of cardorenal and obstructive Pt is anticoagulated with Coumadin Placed on SS Cont CPAP HS Documented By: Natalio Moreau Advanced Directives Existing Advance Directive: Yes Existing Living Will: Yes Existing Power of Online Content Editor: Yes (Son Chad Avery IV) Existing Health Care Proxy: No Resuscitation Status Full code VTE Prophylaxis Will order VTE Prophylaxis: Yes Resident Tracking Resident Involvement: Resident Care Provided Care Provided: Adult Hospital Medicine
[2017-12-03] MEDS ORDERED: NITROGLYCERIN 0.4 MG SL PER TAB CHARGE SL PRN (05:15)
[2017-12-03] MEDS ORDERED: ONDANSETRON INJ 2 MG/ML 2 ML VIAL IV PRN (05:15)
[2017-12-03] MEDS ORDERED: MICONAZOLE NITRATE POWDER 43 GM EXT PRN (05:15)
[2017-12-03] MEDS ORDERED: ALUMINUM/MAGNESIUM/SIMETH (MAALOX MAX) 30 ML UDC PO PRN (05:15)
[2017-12-03] MEDS ORDERED: POLYETHYLENE (MIRALAX) 17 GM PACK PO PRN (05:15)
[2017-12-03] MEDS ORDERED: HYDROCODONE/ACETAMI 10/325 TAB PO PRN (05:15)
[2017-12-03] MEDS ORDERED: MAGNESIUM HYDROXIDE SUSP 30 ML UDC PO PRN (05:15)
[2017-12-03] MEDS ORDERED: ALBUTEROL HFA 8 GM INHALER INH PRN (05:15)
[2017-12-03] MEDS ORDERED: ALBUT/IPRATROP 3MG/0.5MG NEB 3 ML VIAL INH PRN (05:15)
[2017-12-03] MEDS ORDERED: ACETAMINOPHEN 325 MG TAB PO PRN (05:15)
[2017-12-03 06:05] VITALS: BP 134/68; PULSE 57; TEMP 36.4; O2SAT 92; Ht 175.3 cm; Wt 127.8 kg
[2017-12-03] MEDS ORDERED: GLUCOSE 40% GEL 15 GM TUBE PO PRN (06:15)
[2017-12-03] MEDS ORDERED: IV FLUIDS COMPLETED PRN (06:15)
[2017-12-03] MEDS ORDERED: DEXTROSE 50% 50 ML SYR IV PRN (06:15)
[2017-12-03] MEDS ORDERED: GLUCOSE 10 TABS/TUBE PO PRN (06:15)
[2017-12-03] MEDS ORDERED: GLUCAGON FOR INJ 1 MG VIAL SQ PRN (06:15)
[2017-12-03 06:58] LABS: BASO % 0.2 %; BASO ABS # 0.02 K/uL (0-0.2); EOS % 2.4 %; HEMATOCRIT 32.4 % (42-52); HEMOGLOBIN 10.7 g/dL (14.0-18.0); IG# 0.03 K/uL (0.00-0.02); LYMPH ABS # 0.74 K/uL (1.2-3.4); MEAN CELL VOLUME 98.8 fL (80-100); MEAN CORPUSCULAR HEMOGLOBIN 32.6 pg (25-34); MEAN PLATELET VOLUME 8.8 fL (7.4-10.4); MONO % 7.9 %; MONO ABS # 0.65 K/uL (0.11-0.59); NEUT % 80.1 %; NEUT ABS # 6.57 K/uL (1.4-6.5); PLATELET COUNT 215 K/uL (130-400); RED CELL DISTRIBUTION WIDTH CV 16.5 % (11.5-14.5); RED CELL DISTRIBUTION WIDTH SD 59.1 fL (36.4-46.3); WHITE BLOOD COUNT 8.21 K/uL (4.8-10.8)
[2017-12-03] MEDS ORDERED: LEVOTHYROXINE 100 MCG TAB PO SCH (07:00)
--- NOTE | 2017-12-03 07:03 | DIAGNOSTIC IMAGING REPORT ---
CHEST ONE VIEW PORTABLE CLINICAL HISTORY: CHEST PAIN pain COMPARISON STUDY: 11/26/2017 FINDINGS: Cardiomegaly. Prominence of pulmonary vasculature. Diaphragms smooth. Pulmonary apices are clear. IMPRESSION: Mild congestive heart failure. Cardiac megaly. The above report was generated using voice recognition software. It may contain grammatical, syntax or spelling errors. Electronically signed by: Tian Machado M.D. 12/03/2017 7:01 AM Dictated Date/Time: 12/03/2017 7:01 AM
[2017-12-03 07:10] LABS: INR 1.9 (0.9-1.1)
[2017-12-03 07:19] LABS: ALBUMIN 3.1 gm/dl (3.4-5.0); CREATININE 2.2 mg/dl (0.60-1.40); POTASSIUM 4.2 mmol/L (3.5-5.1)
[2017-12-03 07:24] LABS: TOTAL PROTEIN 7.2 gm/dl (6.4-8.2)
[2017-12-03 07:30] VITALS: BP 131/70; PULSE 60; TEMP 36.5; O2SAT 95
--- NOTE | 2017-12-03 08:08 | DIAGNOSTIC IMAGING REPORT ---
ABD/PELVIS WITHOUT FOR STONE CLINICAL HISTORY: 82 years-old Male presenting with EVAL FOR OBSTRUCTION, history of kidney stones, chest pain, cough, CHF. TECHNIQUE: Multidetector CT of the abdomen and pelvis was performed without the use of intravenous contrast. IV contrast: None. A dose lowering technique was used consistent with the principles of ALARA (as low as reasonably achievable). COMPARISON: Ultrasound from 07/24/2016. CT DOSE (mGy.cm): The estimated cumulative dose is 4385.33 mGy.cm. FINDINGS: Loftsman/Woman topogram: Plate and screw fixation across several anterior ribs, which bridge the sternum. Lung bases: Mosaic attenuation at the lung bases could indicate small airways disease. Centrally calcified nodule at the medial basal right lower lobe, possibly hamartoma. Multichamber enlargement of the heart. Coronary artery calcification. Mitral annular and aortic valve calcification. No pericardial or pleural effusion. Liver: Normal morphology. Density consistent with hepatic steatosis. Extensive hepatic arterial calcification. Biliary: No gross biliary ductal dilatation allowing for noncontrast technique. Normal gallbladder. Pancreas: Moderate parenchymal atrophy. Spleen: Normal noncontrast appearance. Extensive splenic arterial calcification. Adrenal glands: 3.1 cm low-density lesion in the left adrenal gland consistent with benign adenoma. Right adrenal gland normal. Kidneys and ureters: Dominant 8.7 cm low-density lesion arising from the lower pole of the left kidney with possible thin peripheral calcification, indeterminate but most likely minimally complex cyst (suspected Bosniak 2). No hydronephrosis. No nephrolithiasis. Nonspecific perinephric fat stranding bilaterally. Nondistended ureters. Bladder: Multiple bladder diverticula noted with overall bladder expansion and luminal irregularity. This could suggest underlying neurogenic bladder. Pelvic organs: Multiple prostatic calcifications. Normal prostate size. Bowel: Diverticulosis of the proximal sigmoid and descending colon. No pericolonic fat infiltration. Scattered diverticula noted elsewhere the colon. The appendix is normal. No bowel obstruction. 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 No free intraperitoneal fluid or gas. Lymph nodes: No gross lymphadenopathy allowing for noncontrast technique. Vasculature: Atherosclerosis of the normal caliber abdominal aorta. Abdominal wall: Prominent fat-containing umbilical hernia. No associated inflammatory change or fluid to suggest strangulation. Extensive body wall edema. Skin thickening and extensive subcutaneous fat infiltration in the pannus, nonspecific and likely related to anasarca. Musculoskeletal: Degenerative changes of the spine. IMPRESSION: 1. Prominent fat-containing umbilical hernia without evidence of strangulation. 2. Nonspecific skin thickening and subcutaneous edema in the pannus, which could relate to anasarca. Correlate clinically to exclude cellulitis. 3. Infiltration of the small bowel mesentery could indicate mesenteric panniculitis, which can be variably symptomatic. Less likely this could represent pancreatitis. Recommend lipase to exclude this entity. 4. Diverticulosis without evidence of diverticulitis. 5. No nephrolithiasis or hydronephrosis. 6. Minimally complex left renal cyst (suspected Bosniak 2, incompletely evaluated). 7. Multiple bladder diverticula with irregularity of the bladder lumen. This is nonspecific but could suggest neurogenic bladder. 8. Benign left adrenal adenoma. 9. Mosaic attenuation at the lung bases could indicate small airways disease. 10. Cardiomegaly. 11. Extensive atherosclerosis. Electronically signed by: Winston Lloyd M.D. 12/03/2017 8:06 AM Dictated Date/Time: 12/03/2017 6:55 AM
[2017-12-03] MEDS ORDERED: SIMVASTATIN 20 MG TAB PO SCH (09:00)
[2017-12-03] MEDS ORDERED: TAMSULOSIN HCL 0.4 MG CAP PO SCH ×2 (09:00→21:00)
[2017-12-03] MEDS ORDERED: FUROSEMIDE INJ 40 MG in SYRINGE 0 ML IV SCH (09:00)
[2017-12-03] MEDS ORDERED: DOXYCYCLINE HYCLATE 100 MG CAP PO SCH (09:00)
[2017-12-03] MEDS ORDERED: HEPARIN SOD 5000 UNIT/0.5 ML CARP SQ SCH (09:00)
[2017-12-03 13:00] VITALS: BP 101/47; PULSE 53; TEMP 36.5; O2SAT 93
--- NOTE | 2017-12-03 13:42 | Nephrology Consultation ---
Nephrology Consultation Date & Providers Date of Consultation: Dec 03, 2017. Primary Care Provider: Winston Harper M.D. Referring Provider: Reason for Consultation Acute on CKD History of Present Illness Mr. Avery is an 82 year old white male who was seen at the request of Dr. Rivera for evaluation of acute on chronic kidney injury. Medical records in the hospital and office EMR were reviewed today and are summarized as follows : Mr. Avery has AODM > 20 years. He has no associated retinopathy. He does have nephropathy. Mr. Avery has stage IIIb A3 CKD (baseline creatinine 2.0). He follows with Dr. Robert Dan in the [facility] Nephrology office on a regular basis. He has been on ARB therapy and his urinary protein excretion has been relatively low grade. Mr. Avery's medical history is also significant for BMI > 40, HTN, hyperlipidemia, ASCVD s/p CABG w/ AVR, chronic atrial fibrillation, EVENS, gout, kidney stones,BPH and recurrent UTI. Mr. Avery reports that during his last hospitalization he suffered from BPH and required rucker catheter insertion. He was evaluated by Urology and started on Flomax therapy. His catheter was then removed and he was trained to perform clean intermittent bladder catheterization. He had difficulty performing this procedure and his provided assistance. Unfortunately she has developed medical problems and can no longer assist. Mr. Avery reports that several weeks ago he began to void on his own and stopped his catheterization. Over the last week Mr. Avery has noted difficulty voiding. He has had reduced UO despite increasing his Furosemide dose. Mr. Avery has developed progressive dyspnea, abdominal and leg edema. He presented to the ED and was found to have CARLO w/ serum creatinine 2.4. Following rucker catheter insertion Mr. Avery diuresed 1600 cc. 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 Baseline creatinine ~ 2.0. # HTN # BMI > 40 # EVENS # AODM. No retinopathy # Hyperlipidemia # ASCVD s/p CABG w/ AVR # chronic atrial fibrillation # h/o kidney stones and recurrent UTI # Gout # BPH Surgical: # ASCVD s/p CABG w/ AVR 2008 in [facility] Allergies Coded Allergies: Chlorpheniramine (Verified Adverse Reaction, Intermediate, "CAUSE PROSTATE TO ENLARGE", 12/03/17) Linezolid (Verified Adverse Reaction, Intermediate, GI SYMPTOMS, 12/03/17) Concommitant GI bleed Phenylpropanolamine (Verified Adverse Reaction, Intermediate, "CAUSE PROSTATE TO ENLARGE"., 12/03/17) Inpatient Medications Current Inpatient Medications Medications (Trade) Dose Ordered Sig/Sukhwinder Route Start Time Stop Time Status Last Admin Dose Admin Acetaminophen (Tylenol Tab) 650 mg Q4H PRN PO 12/03/17 05:15 01/02/18 05:14 Al Hydrox/Mg Hydrox/Simethicone (Maalox Max Susp) 15 ml Q4H PRN PO 12/03/17 05:15 01/02/18 05:14 Magnesium Hydroxide (Milk Of Magnesia Susp) 30 ml Q12H PRN PO 12/03/17 05:15 01/02/18 05:14 Ondansetron HCl (Zofran Inj) 4 mg Q6H PRN IV 12/03/17 05:15 01/02/18 05:14 Nitroglycerin (Nitrostat Tab) 0.4 mg UD PRN SL 12/03/17 05:15 01/02/18 05:14 Polyethylene (Miralax Powder Packet) 17 gm DAILY PRN PO 12/03/17 05:15 01/02/18 05:14 Albuterol (Ventolin Hfa Inhaler) 2 puffs Q4 PRN INH 12/03/17 05:15 01/02/18 05:14 Doxycycline Hyclate (Vibramycin Cap) 100 mg BID PO 12/03/17 09:00 01/02/18 08:59 12/03/17 08:29 100 MG Acetaminophen/ Hydrocodone Bitart ([place] 10/325 Tab) 1 tab TID PRN PO 12/03/17 05:15 12/17/17 05:14 Insulin Aspart Prota 70%/Aspart 30% (novoLOG MIX 70/ 30) 20 units QDD SC 12/03/17 16:45 01/02/18 16:44 Albuterol/ Ipratropium (Duoneb) 3 ml TID PRN INH 12/03/17 05:15 01/02/18 05:14 Levothyroxine Sodium (Synthroid Tab) 100 mcg DAILYBB PO 12/03/17 07:00 01/02/18 06:59 12/03/17 08:29 100 MCG Miconazole Nitrate (Desenex Powder) 1 appln DAILY PRN EXT 12/03/17 05:15 01/02/18 05:14 Simvastatin (Zocor Tab) 20 mg DAILY PO 12/03/17 09:00 01/02/18 08:59 12/03/17 08:29 20 MG Warfarin Sodium (Coumadin Tab) 2.5 mg MoFr@1600 PO 12/03/17 16:00 01/02/18 15:59 Warfarin Sodium (Coumadin Tab) 5 mg SuTuWeThSa@1600 PO 12/04/17 16:00 01/03/18 15:59 Furosemide 40 mg/ Syringe 4 ml @ 4 mls/min BID17 IV 12/03/17 09:00 01/02/18 08:59 12/03/17 08:30 4 MLS/MIN Miscellaneous (Iv Fluids Completed) 1 ea PRN PRN N/A 12/03/17 06:15 12/03/18 06:14 Glucose (Glucose 40% Gel) 15-30 GRAMS 15 GRAMS... UD PRN PO 12/03/17 06:15 01/02/18 06:14 Glucose (Glucose Chew Tab) 4-8 Tablets 4 Tabl... UD PRN PO 12/03/17 06:15 01/02/18 06:14 Dextrose (Dextrose 50% 50ML Syringe) 25-50ML OF 50% DW IV FOR... UD PRN IV 12/03/17 06:15 01/02/18 06:14 Glucagon (Glucagon Inj) 1 mg UD PRN SQ 12/03/17 06:15 01/02/18 06:14 Tamsulosin HCl (Flomax Cap) 0.4 mg BID PO 12/03/17 21:00 01/02/18 08:59 Family History FH: diabetes mellitus FH: hypertension Negative for CKD / ESRD Social History Smoking Status: Never Smoker Drug Use: none Marital Status: Housing Status: lives with family Occupation: retired . Retired. Never a smoker Review of Systems Constitutional: No fever Respiratory: No dyspnea on exertion Cardiovascular: No chest pain Abdomen: No pain, No nausea, No vomiting A complete review of systems was performed. Pertinent positives are noted above. All other systems are negative. Physical Exam Date Time Temp Pulse Resp B/P (MAP) Pulse Ox O2 Delivery O2 Flow Rate FiO2 12/03/17 12:00 Room Air 12/03/17 08:00 Room Air 12/03/17 07:30 36.5 60 20 131/70 (90) 95 Room Air 12/03/17 06:05 36.4 57 18 134/68 92 Room Air 12/03/17 05:46 59 18 130/69 95 12/03/17 05:00 55 18 112/67 100 Room Air 12/03/17 04:19 60 18 123/58 98 Room Air 12/03/17 04:08 58 12/03/17 03:26 57 20 101/41 94 Room Air 12/03/17 02:33 59 18 125/60 96 Room Air 12/03/17 00:39 57 16 132/63 97 Room Air 12/03/17 00:35 97 Room Air 12/03/17 00:15 58 12/02/17 23:13 36.3 57 20 124/68 94 Room Air General Appearance: no apparent distress Head: normocephalic, atraumatic Eyes: PERRL, EOMI Neck: no adenopathy Respiratory/Chest: + rales Cardiovascular: regular rate, rhythm Abdomen/GI: normal bowel sounds, non tender, soft Genitourinary - Male: + pertinent finding (ruckre catheter in place draining clear yellow urine) Extremities/Musculoskelatal: + swelling (1+ pretibial pitting edema) Neurologic/Psych: alert, oriented x 3 Laboratory Results Last 24 Hours Test 12/03/17 00:15 12/03/17 00:16 12/03/17 03:30 12/03/17 06:43 White Blood Count 8.54 K/uL Red Blood Count 3.34 M/uL Hemoglobin 10.9 g/dL Hematocrit 32.9 % Mean Corpuscular Volume 98.5 fL Mean Corpuscular Hemoglobin 32.6 pg Mean Corpuscular Hemoglobin Concent 33.1 g/dl Platelet Count 219 K/uL Mean Platelet Volume 8.7 fL Neutrophils (%) (Auto) 81.0 % Lymphocytes (%) (Auto) 7.1 % Monocytes (%) (Auto) 8.3 % Eosinophils (%) (Auto) 2.7 % Basophils (%) (Auto) 0.4 % Neutrophils # (Auto) 6.92 K/uL Lymphocytes # (Auto) 0.61 K/uL Monocytes # (Auto) 0.71 K/uL Eosinophils # (Auto) 0.23 K/uL Basophils # (Auto) 0.03 K/uL RDW Standard Deviation 59.1 fL RDW Coefficient of Variation 16.6 % Immature Granulocyte % (Auto) 0.5 % Immature Granulocyte # (Auto) 0.04 K/uL Prothrombin Time 19.7 SECONDS Prothromb Time International Ratio 1.9 Activated Partial Thromboplast Time 36.0 SECONDS Partial Thromboplastin Ratio 1.4 Sodium Level 139 mmol/L Potassium Level 4.2 mmol/L Chloride Level 106 mmol/L Carbon Dioxide Level 23 mmol/L Anion Gap 10.0 mmol/L Blood Urea Nitrogen 74 mg/dl Creatinine 2.43 mg/dl Est Creatinine Clear Calc Drug Dose 30.9 ml/min Estimated GFR () 27.6 Estimated GFR (Non- 23.9 BUN/Creatinine Ratio 30.5 Random Glucose 154 mg/dl Calcium Level 8.5 mg/dl Total Bilirubin 0.7 mg/dl Direct Bilirubin 0.4 mg/dl Aspartate Amino Transf (AST/SGOT) 49 U/L Alanine Aminotransferase (ALT/SGPT) 35 U/L Alkaline Phosphatase 685 U/L Total Creatine Kinase 205 U/L Creatine Kinase MB 5.1 ng/ml Creatine Kinase MB Ratio 2.5 Pro-B-Type Natriuretic Peptide 7787 pg/ml Total Protein 7.3 gm/dl Albumin 3.2 gm/dl Lipase 234 U/L Thyroid Stimulating Hormone (TSH) 2.650 uIu/ml Bedside Troponin I 0.030 ng/ml Urine Color YELLOW Urine Appearance CLEAR Urine pH 5.0 Urine Specific [place] 1.015 Urine Protein NEG Urine Glucose (UA) NEG Urine Ketones NEG Urine Occult Blood NEG Urine Nitrite NEG Urine Bilirubin NEG Urine Urobilinogen NEG Urine Leukocyte Esterase SMALL Urine WBC (Auto) 1-5 /hpf Urine RBC (Auto) 0-4 /hpf Urine Hyaline Casts (Auto) 5-10 /lpf Urine Epithelial Cells (Auto) 10-20 /lpf Urine Bacteria (Auto) NEG Bedside Glucose 96 mg/dl Test 12/03/17 06:45 12/03/17 11:02 White Blood Count 8.21 K/uL Red Blood Count 3.28 M/uL Hemoglobin 10.7 g/dL Hematocrit 32.4 % Mean Corpuscular Volume 98.8 fL Mean Corpuscular Hemoglobin 32.6 pg Mean Corpuscular Hemoglobin Concent 33.0 g/dl Platelet Count 215 K/uL Mean Platelet Volume 8.8 fL Neutrophils (%) (Auto) 80.1 % Lymphocytes (%) (Auto) 9.0 % Monocytes (%) (Auto) 7.9 % Eosinophils (%) (Auto) 2.4 % Basophils (%) (Auto) 0.2 % Neutrophils # (Auto) 6.57 K/uL Lymphocytes # (Auto) 0.74 K/uL Monocytes # (Auto) 0.65 K/uL Eosinophils # (Auto) 0.20 K/uL Basophils # (Auto) 0.02 K/uL RDW Standard Deviation 59.1 fL RDW Coefficient of Variation 16.5 % Immature Granulocyte % (Auto) 0.4 % Immature Granulocyte # (Auto) 0.03 K/uL Prothrombin Time 20.1 SECONDS Prothromb Time International Ratio 1.9 Sodium Level 142 mmol/L Potassium Level 4.2 mmol/L Chloride Level 107 mmol/L Carbon Dioxide Level 24 mmol/L Anion Gap 10.0 mmol/L Blood Urea Nitrogen 74 mg/dl Creatinine 2.20 mg/dl Est Creatinine Clear Calc Drug Dose 34.3 ml/min Estimated GFR () 31.2 Estimated GFR (Non- 26.9 BUN/Creatinine Ratio 33.5 Random Glucose 94 mg/dl Calcium Level 9.0 mg/dl Total Bilirubin 0.7 mg/dl Aspartate Amino Transf (AST/SGOT) 44 U/L Alanine Aminotransferase (ALT/SGPT) 30 U/L Alkaline Phosphatase 625 U/L Troponin I 0.033 ng/ml Total Protein 7.2 gm/dl Albumin 3.1 gm/dl Globulin 4.1 gm/dl Albumin/Globulin Ratio 0.8 Bedside Glucose 164 mg/dl Impression (1) Acute kidney injury (2) Chronic kidney disease (3) BPH (benign prostatic hyperplasia) (4) Urinary retention (5) ASCVD (arteriosclerotic cardiovascular disease) (6) A-fib (7) Sleep apnea (8) Diabetes Acute on CKD likely related to BPH w/ obstruction. Patient is now diuresing following Rucker catheter insertion and creatinine is trending toward baseline PMH - AODM, BMI > 40, HTN, hyperlipidemia, ASCVD s/p CABG w/ AVR, chronic atrial fibrillation, EVENS, gout, kidney stones, BPH and recurrent UTI. Recommendations -- Blood pressure is acceptable. Agree w/ holding Losartan -- 12/[address] report reviewed: No hydro. Patient does have an 8.7 cm cyst involving the lower pole of the L kidney. This is mildly calcified and will require repeat imaging in 6 to 12 months. -- Patient is diuresing following Rucker catheter insertion. Will reduce Furosemide back to outpatient dose of 20 mg po BID (target weight 275 lbs or less) -- Await urine culture results. Patient is on empiric Doxycycline -- Monitor serial PRP -- If discharge is anticipated please schedule Nephrology office visit with Dr. Dan within the next 7 - 14 days ([phone]). Instruct patient to have blood work completed 24 hours prior to office visit. I have place order in [employer] EMR -- Agree w/ Tamsulosin therapy and Rucker catheter. Patient will require close follow up w/ Urology. He may be a candidate for TURP.
--- NOTE | 2017-12-03 14:27 | Urology Consultation ---
History General Date of Service: Dec 03, 2017. Chief Complaint: urinary retention Primary Care Physician: Winston Harper M.D. Pt seen a urologist before?: Yes (many years ago while living somewhere else) History of Present Illness 82 yo male admitted with UR, CHF, and ARF. The pt reports a 3 day hx of weak stream and hesitancy. He states he has not seen a urologist recently, but does have a hx of UR last year. 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 She has since had hip surgery and is more mobile now. It is unclear who taught him CIC. He states he has been on Flomax for several years. No hx of elevated PSAs or family hx of prostate cancer per the pt. Rucker catheter was placed in the ED for 1100ml urine return. Rucker draining yellow urine with some light hematuria noted in the tube and drainage bag. Cr has improved from 2.43 to [address] scan today negative for stones or hydro. Large 8cm left renal cyst visualized. Small bladder diverticula also noted. Imaging Imaging: CT Laboratory Labs were reviewed and are within normal limits unless listed below. Labs are available in the chart and at [facility] Problem List Medical Problems: (1) Bleeding from PICC line Status: Acute (2) Cellulitis of left lower extremity Status: Acute (3) CHF (congestive heart failure) Status: Chronic (4) Chronic kidney disease Status: Acute (5) Facial abrasion Status: Acute (6) Failure of outpatient treatment Status: Acute (7) Fever Status: Acute (8) Fever Status: Acute (9) Fever Status: Acute (10) Hypoxia Status: Acute (11) Lactic acid acidosis Status: Acute (12) Leukocytosis Status: Acute (13) Leukocytosis Status: Acute (14) Pneumonia Status: Acute (15) Renal failure Status: Acute (16) Sepsis Status: Acute (17) Sepsis Status: Acute (18) UTI (urinary tract infection) Status: Acute (19) UTI (urinary tract infection) Status: Acute Past History A Fib, BPH, congestive heart failure, COPD, coronary artery disease, diabetes, high cholesterol, hypertension, hypothyroidism, other (CKD, osteomyelitis of left foot, secondary hyperparathyroidism, sleep apnea) Past Surgical History: coronary bypass surgery Family History FH: diabetes mellitus FH: hypertension Social History Hx Tobacco Use In Past Year?: No Smoking: non-smoker Drug use: none Marital status: Housing status: lives with family Occupation status: retired Immunizations History of Influenza Vaccine: Yes History of Tetanus Vaccine?: Yes History of Pneumococcal: Yes History of Hepatitis B Vaccine: Yes History of MDRO Yes Type of MDRO: MRSA Allergies Coded Allergies: Chlorpheniramine (Verified Adverse Reaction, Intermediate, "CAUSE PROSTATE TO ENLARGE", 12/03/17) Linezolid (Verified Adverse Reaction, Intermediate, GI SYMPTOMS, 12/03/17) Concommitant GI bleed Phenylpropanolamine (Verified Adverse Reaction, Intermediate, "CAUSE PROSTATE TO ENLARGE"., 12/03/17) Medications Home Medications: Home Meds and Scripts Medications Dose Route/Sig Max Daily Dose Days Date Category Dose Instructions Lasix (Furosemide) 40 Mg Tab 40 Mg PO PM 11/29/17 Reported Humulin 70/30 (Insulin Human Isoph/Insulin Regular) Inj 20 Units SC HS 08/30/17 Reported Lasix (Furosemide) 40 Mg Tab 60 Mg PO QAM 08/22/17 Reported Monodox (Doxycycline Monohydrate) 100 Mg Cap 100 Mg PO BID 08/16/17 Reported Flomax (Tamsulosin Hcl) 0.4 Mg Cap 0.4 Mg PO QAM 06/04/17 Reported Iron (Ferrous Sulfate) 325 Mg Tab 325 Mg PO DAILY 05/30/17 Reported [employer] (Probiotic Product) 1 Cap Cap 1 Cap PO DAILY 04/11/17 Reported Desenex Shake Powder (Miconazole Nitrate) 90 Appln/90 Gm Powd 1 Appln EXT DAILY PRN 04/01/17 Reported [place] 10MG/325MG (Acetaminophen/Hydrocodone Bitart) Tab 1 Tab PO TID PRN 04/01/17 Reported Coumadin (Warfarin Sod) 5 Mg Tab 5 Mg PO 5XWK 04/01/17 Reported Ventolin Hfa (Albuterol) 200 Puffs/40478 Mcg Aers 1-2 Puffs INH Q4 PRN 03/19/17 Reported Coumadin (Warfarin Sod) 5 Mg Tab 2.5 Mg PO 2XWK 03/08/17 Reported MF Vitamin D 67746 Unit (Ergocalciferol) 50,000 Unit Cap 50,000 Inter.unit PO WK 03/08/17 Reported TAKES ON SUNDAYS. Oxygen Gas 1.5 Liter NA HS PRN 01/02/17 Reported EVERY NIGHT WITH CPAP. Duoneb (Ipratropium-Albuterol) 3 Ml Nebu 1 Treatment INH TID PRN 01/02/17 Reported Zocor (Simvastatin) 20 Mg Tab 20 Mg PO DAILY 01/02/17 Reported Levothyroxine Sodium 100 Mcg Tab 100 Mcg PO DAILY 01/02/17 Reported Inpatient Medications: Current Inpatient Medications Medications (Trade) Dose Ordered Sig/Sukhwinder Route Start Time Stop Time Status Last Admin Dose Admin Acetaminophen (Tylenol Tab) 650 mg Q4H PRN PO 12/03/17 05:15 01/02/18 05:14 Al Hydrox/Mg Hydrox/Simethicone (Maalox Max Susp) 15 ml Q4H PRN PO 12/03/17 05:15 01/02/18 05:14 Magnesium Hydroxide (Milk Of Magnesia Susp) 30 ml Q12H PRN PO 12/03/17 05:15 01/02/18 05:14 Ondansetron HCl (Zofran Inj) 4 mg Q6H PRN IV 12/03/17 05:15 01/02/18 05:14 Nitroglycerin (Nitrostat Tab) 0.4 mg UD PRN SL 12/03/17 05:15 01/02/18 05:14 Polyethylene (Miralax Powder Packet) 17 gm DAILY PRN PO 12/03/17 05:15 01/02/18 05:14 Albuterol (Ventolin Hfa Inhaler) 2 puffs Q4 PRN INH 12/03/17 05:15 01/02/18 05:14 Doxycycline Hyclate (Vibramycin Cap) 100 mg BID PO 12/03/17 09:00 01/02/18 08:59 12/03/17 08:29 100 MG Acetaminophen/ Hydrocodone Bitart ([place] 10/325 Tab) 1 tab TID PRN PO 12/03/17 05:15 12/17/17 05:14 Insulin Aspart Prota 70%/Aspart 30% (novoLOG MIX 70/ 30) 20 units QDD SC 12/03/17 16:45 01/02/18 16:44 Albuterol/ Ipratropium (Duoneb) 3 ml TID PRN INH 12/03/17 05:15 01/02/18 05:14 Levothyroxine Sodium (Synthroid Tab) 100 mcg DAILYBB PO 12/03/17 07:00 01/02/18 06:59 12/03/17 08:29 100 MCG Miconazole Nitrate (Desenex Powder) 1 appln DAILY PRN EXT 12/03/17 05:15 01/02/18 05:14 Simvastatin (Zocor Tab) 20 mg DAILY PO 12/03/17 09:00 01/02/18 08:59 12/03/17 08:29 20 MG Tamsulosin HCl (Flomax Cap) 0.4 mg QAM PO 12/03/17 09:00 01/02/18 08:59 12/03/17 08:29 0.4 MG Warfarin Sodium (Coumadin Tab) 2.5 mg MoFr@1600 PO 12/03/17 16:00 01/02/18 15:59 Warfarin Sodium (Coumadin Tab) 5 mg SuTuWeThSa@1600 PO 12/04/17 16:00 01/03/18 15:59 Furosemide 40 mg/ Syringe 4 ml @ 4 mls/min BID17 IV 12/03/17 09:00 01/02/18 08:59 12/03/17 08:30 4 MLS/MIN Miscellaneous (Iv Fluids Completed) 1 ea PRN PRN N/A 12/03/17 06:15 12/03/18 06:14 Glucose (Glucose 40% Gel) 15-30 GRAMS 15 GRAMS... UD PRN PO 12/03/17 06:15 01/02/18 06:14 Glucose (Glucose Chew Tab) 4-8 Tablets 4 Tabl... UD PRN PO 12/03/17 06:15 01/02/18 06:14 Dextrose (Dextrose 50% 50ML Syringe) 25-50ML OF 50% DW IV FOR... UD PRN IV 12/03/17 06:15 01/02/18 06:14 Glucagon (Glucagon Inj) 1 mg UD PRN SQ 12/03/17 06:15 01/02/18 06:14 Review of Systems Review of Systems Constitutional: No fever, No chills Eyes: No double vision Neurological: No dizzy Endocrine: No excessive thirst Gastrointestinal: No abdominal pain, No nausea, No vomiting Cardiovascular: No chest pain Respiratory: No shortness of breath Skin: No rash Musculoskeletal: No back pain Male : + urinary retention, + blood in urine Physical Exam Vital Signs: Vital Signs Past 12 Hours Date Time Temp Pulse Resp B/P (MAP) Pulse Ox O2 Delivery O2 Flow Rate FiO2 12/03/17 08:00 Room Air 12/03/17 07:30 36.5 60 20 131/70 (90) 95 Room Air 12/03/17 06:05 36.4 57 18 134/68 92 Room Air 12/03/17 05:46 59 18 130/69 95 12/03/17 05:00 55 18 112/67 100 Room Air 12/03/17 04:19 60 18 123/58 98 Room Air 12/03/17 04:08 58 12/03/17 03:26 57 20 101/41 94 Room Air 12/03/17 02:33 59 18 125/60 96 Room Air 12/03/17 00:39 57 16 132/63 97 Room Air 12/03/17 00:35 97 Room Air 12/03/17 00:15 58 Physical Exam: General Appearance: no apparent distress, + obese Eyes: bilateral eyes normal inspection ENT: hearing grossly normal Neck: no JVD Respiratory/Chest: no respiratory distress, no accessory muscle use Cardiovascular: no JVD Extremities: normal inspection Neurologic/Psychiatric: alert, normal mood/affect, oriented x 3 Skin: normal color Assessment & Plan Assessment & Plan A/P: Urinary retention, gross hematuria AFVSS. UC&S pending. Will send a cytology. Will increase his Flomax to BID. Would monitor for orthostasis. Will plan to leave rucker catheter in place for now. Plan for outpatient trial of void next week with possible CIC teaching. Will also plan for outpatient cysto to assess gross hematuria, bladder diverticula, and BPH as an outpatient. Will arrange. Thanks for the consult. No further management at this time. Recall PRN issues. Thanks for allowing us to participate in this pt's care.
[2017-12-03] MEDS ORDERED: COUGH DROP (SUGAR FREE) LOZ 24 LOZ/1 BOX LOZ ONE (14:48)
[2017-12-03] MEDS ORDERED: NURSING DECISION MEDICATION ORDER SCH (15:00)
[2017-12-03] MEDS ORDERED: COUGH DROP (SUGAR FREE) LOZ 24 LOZ/1 BOX LOZ PRN (15:15)
[2017-12-03 15:52] VITALS: BP_SYST 104; BP_SYST 112; BP_SYST 123; BP_DIAS 56; BP_DIAS 61; BP_DIAS 63; PULSE 54; TEMP 36.4; O2SAT 93
[2017-12-03 16:00] VITALS: O2SAT 93
[2017-12-03] MEDS ORDERED: WARFARIN SOD 2.5 MG TAB PO SCH (16:00)
[2017-12-03] MEDS ORDERED: LSX20 PO (16:32)
[2017-12-03] MEDS ORDERED: INSULIN 70% ASPART PROTAMINE/30% ASPART SC SCH (16:45)
--- NOTE | 2017-12-03 16:49 | Discharge Instructions ---
Discharge Instructions Date of Service Dec 03, 2017. Admission Reason for Admission: Congestive Heart Failure, Urinary Retention Discharge Discharge Diagnosis / Problem: Urinary retention, acute kidney injury, CHF Discharge Goals Goal(s): Decrease discomfort, Improve function Activity Recommendations Activity Limitations: resume your previous activity . Instructions / Follow-Up Instructions / Follow-Up You were admitted with complaints of abdominal distention and decreased urinary output and difficulty breathing. Your bladder scan to have 1100 mL's of urine retained in the bladder which was relieved after insertion of Mckeon catheter. During your hospitalization, he had creatinine was found to be elevated compared to her baseline which is likely secondary to the urinary retention. You were seen by nephrology and urology and recommendations are as follows. Urinary retention: -Please use Flomax twice daily along with finasteride. please be careful while standing from a seated position as it may drop your BP -Continue to have the Mckeon catheter in place for now and please follow-up with urology next week for a voiding trial -Urology may also plan to perform an outpatient cystoscopy for further evaluation Acute kidney injury: -Your creatinine on admission was 2.3 which decreased to 2.2 today. - You were seen by nephrology who recommended to continue your previous dose of Lasix of 20 mg twice daily(target weight 275 lbs or less) - Please follow-up with Dr. Dan within the next 7-14 days. Please get blood work 24 hours prior to office visit. Orders have been placed in all scripts EMR Asthma - Continue home inhalers Permanent Atrial fibrillation -Continue Coumadin Normocytic Anemia - at baseline Coronary artery disease / prosthetic aortic valve / Hyperlipidemia / Hypertension - Continue simvastatin T2DM with neuropathy -Continue home dose insulin Hypothyroid - Continue levothyroxine Sleep apnea with severe pulm HTN -Continue to use CPAP at night with 2L O2 Please follow-up with Dr. Harper Follow up appointment arranged w/ Dr.Paul Harper on SundayDecember 11 at 3:45 pm. Follow-up with urology next week Follow-up with nephrology in 7-10 days Current Hospital Diet Patient's current hospital diet: Diabetes Type 2 Diet, Renal Diet, AHA Diet ( Heart Healthy) Discharge Diet Recommended Diet: AHA Diet (Heart Healthy), Renal Diet Pending Studies Studies pending at discharge: yes List of pending studies: UC and senstivity Laboratory Results Hemoglobin A1c Test 11/14/17 14:49 Range/Units Estimated Average Glucose 157 mg/dl Hemoglobin A1c 7.1 H 4.5-5.6 % Lipid Panel Test 11/14/17 14:49 Range/Units Triglycerides Level 74 0-150 mg/dl Cholesterol Level 129 0-200 mg/dl HDL Cholesterol 75 mg/dl Cholesterol/HDL Ratio 1.7 LDL Cholesterol, Calculated 39 mg/dl Medical Emergencies . Who to Call and When: Medical Emergencies: If at any time you feel your situation is an emergency, please call 911 immediately. . Non-Emergent Contact Non-Emergency issues call your: Primary Care Provider . . "Provider Documentation" section prepared by Christel Lizarraga. . Resident Tracking Resident Involvement: Resident Care Provided Care Provided: Adult Hospital Medicine
[2017-12-03] MEDS ORDERED: FUROSEMIDE 20 MG TAB PO SCH (17:00)
[2017-12-03] MEDS ORDERED: FLM4 PO (17:03)
[2017-12-03] MEDS ORDERED: PRS5 PO (17:03)
--- NOTE | 2017-12-03 17:29 | Discharge Summary ---
Discharge Summary Date of Service Dec 03, 2017. Discharge Summary Admission Date: Dec 03, 2017 at 05:11 Discharge Date: Dec 03, 2017 Discharge Disposition: Home with services Principal Diagnosis: CHF exacerbation, asthma, urinary retention Problems/Secondary Diagnoses: (1) CHF (congestive heart failure) Status: Chronic Immunizations: Have You Had Influenza Vaccine: Yes History of Tetanus Vaccine?: Yes History of Pneumococcal: Yes History of Hepatitis B Vaccine: Yes Consultations: Nephrology, urology Medication Reconciliation New Medications: Finasteride (Finasteride) 5 Mg Tab 5 MG PO DAILY PRN for xochitl, #30 Furosemide (Furosemide) 20 Mg Tab 20 MG PO BID17 for 15 Days, TAB Tamsulosin HCl (Tamsulosin HCl) 0.4 Mg Cap 0.4 MG PO BID for 15 Days, #30 CAP Continued Medications: Albuterol Hfa (Ventolin Hfa) 200 Puffs/35143 Mcg Aers 1-2 PUFFS INH Q4 PRN for SOB/Wheezing Doxycycline Monohydrate (Monodox) 100 Mg Cap 100 MG PO BID, CAP Ergocalciferol (Vitamin D 01300 Unit) 50,000 Unit Cap 53100 INTER.UNIT PO WK, CAP TAKES ON SUNDAYS. Ferrous Sulfate (Iron) 325 Mg Tab 325 MG PO DAILY Home O2 Therapy (Oxygen) Gas 1.5 LITER NA HS PRN for Shortness of Breath EVERY NIGHT WITH CPAP. Hydrocodone/Acetaminophen 10MG/325MG ([place] 10MG/325MG) Tab 1 TAB PO TID PRN for Pain, TAB Insulin Human Isophan/Regular (Humulin 70/30) Inj 20 UNITS SC HS Ipratropium-Albuterol (Duoneb) 3 Ml Nebu 1 TREATMENT INH TID PRN for Shortness of Breath, INHA Levothyroxine Sodium (Levothyroxine Sodium) 100 Mcg Tab 100 MCG PO DAILY Miconazole Nitrate (Desenex Shake Powder) 90 Appln/90 Gm Powd 1 APPLN EXT DAILY PRN for Itching Probiotic Product ([employer]) 1 Cap Cap 1 CAP PO DAILY Simvastatin (Zocor) 20 Mg Tab 20 MG PO DAILY, TAB Tamsulosin Hcl (Flomax) 0.4 Mg Cap 0.4 MG PO QAM, CAP Warfarin Sod (Coumadin) 5 Mg Tab 2.5 MG PO 2XWK MF Warfarin Sod (Coumadin) 5 Mg Tab 5 MG PO 5XWK Discontinued Medications: Furosemide (Lasix) 40 Mg Tab 60 MG PO QAM, TAB Furosemide (Lasix) 40 Mg Tab 40 MG PO PM, TAB Discharge Exam Doing well. no acute events overnight Review of Systems: Constitutional: No fever, No chills Eyes: No worsening of vision ENT: No hearing loss Respiratory: No cough Cardiovascular: No chest pain, No orthopnea Abdomen: No pain, No nausea Genitourinary - Male: + urinary retention, No hematuria, No dysuria Neurologic: No memory loss Psychiatric: No depression symptoms Endocrine: No fatigue Physical Exam: General Appearance: WD/WN, no apparent distress Eyes: normal inspection ENT: normal ENT inspection, hearing grossly normal Neck: supple Respiratory/Chest: chest non-tender, lungs clear, normal breath sounds Cardiovascular: regular rate, rhythm, no edema Abdomen / GI: normal bowel sounds, non tender, soft Extremities: normal inspection, + pedal edema (chronic) Neurologic/Psychiatric: alert, normal mood/affect, oriented x 3 Skin: normal color Hospital Course 82 yo male with pMHx CAD w/ CABG x 3 + AVR, a.fib, [place] with pulm HTN, DMII with peripheral neuropathy, HTN, HLD presented to the hospital with abdominal distension and decreased urine output despite recent increases in furosemide, with symptoms ongoing for over a week. No N/V, no abdominal pain, no diarrhea or hematochezia. No urinary symptoms, although unable to determine if urinary retention. He does taken his tamsulosin regularly. No fevers/chills/new back pain, Additionally, patient has noted worsening respiratory symptoms for several weeks. He was recently prescribed Augmentin from his PCP for URTI sx, which has improved his symptoms slowly. He denies orthopnea or PND. He has ongoing/ worsening leg edema bilaterally, and admits to weight gain over the last few weeks. He has not noted a significant decrease in exercise tolerance, ambulates with a walker, unable to climb stairs for a while. Patient is a never smoker, but has seen Dr. Castaneda in the past who diagnosed him with asthma, as per patient. Patient compliant with DuoNeb and budesonide and has noted increased frequency in need. In the ED, noted have elevated creatinine and BNP. Rucker inserted in ED improved distension and drained 1100ml of urine. Acute renal on chronic reanl failure - CKD III - with secondary hyperparathyroidism - Creatinine elevated -Nephrology was consulted , Lasix was changed back to his home dosage of 20 mg twice daily and he was recommended to follow-up with Dr. Dan as an outpatient with blood work prior to the appointment. BPH/Urinary retention: Rucker was inserted and urology was consulted who had recommended an outpatient follow-up in about a week for a voiding trial and possible cystoscopy in the office. He was also discharged on tamsulosin 0.4 mg twice daily and finasteride He was recommended to continue his other home medications as scheduled. He was recommended physical therapy but the patient refused inpatient rehab but was interested in home PT Resident Physician Supervision Note: I interviewed and examined the patient. Discussed with Dr. Gomez and agree with findings and plan as documented in the note. Any exceptions or clarifications are listed here: None Documented By: Bam Blake feeling better wants to go home, dr gomez discussed PT recs but pt does not want rehab, reiterated this many times, appears to have capacity, family present and do not voice concerns on this plan veltljudd noted jessika gimenez unlabored rucekr w clear urine urology input appreciated, d/w nephrology obstructive uropathy related to BPH causing ARF -home on rucker, med management -f/u BMP as outpt closely -urology next week for voiding trial, further w/u etc Total Time Spent: Less than 30 minutes This includes examination of the patient, discharge planning, medication reconciliation, and communication with other providers. Discharge Instructions Please refer to the electronic Patient Visit Report (Discharge Instructions) for additional information. Follow-Up Follow-up with nephrology in 7-10 days Follow-up with urology in about a week Follow-up with PCP in about a week Additional Copies To Monica Ledesma Resident Tracking Resident Involvement: Resident Care Provided Care Provided: Adult [facility] Medicine
[2017-12-03 17:33] VITALS: BP 112/61; PULSE 54; TEMP 36.4; O2SAT 93
[2017-12-04] MEDS ORDERED: WARFARIN SOD 5 MG TAB PO SCH (16:00)
== END 2017-12-03 18:00 | disposition home or self-care (01) ==
LOC: C.EDB 23:03 → C.2T 12-03 05:11 → ENRESERV 12-03 05:28
PROVIDERS: ADMIT Student in an Organized Health Care Education/Training Program; ATTEND Family Medicine
DX: N17.9 Acute kidney failure, unspecified (principal); I13.0 Hypertensive heart and chronic kidney disease with heart failure and stage 1 through stage 4 chronic kidney disease, or unspecified chronic kidney disease; N18.3 Chronic kidney disease, stage 3 (moderate); I50.9 Heart failure, unspecified; N13.9 Obstructive and reflux uropathy, unspecified; N40.1 Benign prostatic hyperplasia with lower urinary tract symptoms; R33.9 Retention of urine, unspecified; J45.909 Unspecified asthma, uncomplicated; I48.2 Chronic atrial fibrillation; D64.9 Anemia, unspecified; M10.9 Gout, unspecified; E78.5 Hyperlipidemia, unspecified; E11.40 Type 2 diabetes mellitus with diabetic neuropathy, unspecified; I25.10 Atherosclerotic heart disease of native coronary artery without angina pectoris; E03.9 Hypothyroidism, unspecified; G47.33 Obstructive sleep apnea (adult) (pediatric); I27.20 Pulmonary hypertension, unspecified; Z99.89 Dependence on other enabling machines and devices; Z79.01 Long term (current) use of anticoagulants; Z79.4 Long term (current) use of insulin; Z95.2 Presence of prosthetic heart valve; Z95.1 Presence of aortocoronary bypass graft; Z87.442 Personal history of urinary calculi; Z87.440 Personal history of urinary (tract) infections; Z86.14 Personal history of Methicillin resistant Staphylococcus aureus infection; Z83.3 Family history of diabetes mellitus; Z82.49 Family history of ischemic heart disease and other diseases of the circulatory system

== ENCOUNTER → 2017-12-11 | Outpatient (CLI) | payer OTHER ==
[~2017-12-11] MED LIST changes: -FEBU40TA PO; +FLM4 PO; -FRS/40 PO; +LSX20 PO; +PRS5 PO; -TAMS0.4C38 PO
[2017-12-11 16:59] LABS: HEMATOCRIT 33.9 % (42-52); HEMOGLOBIN 11.2 g/dL (14.0-18.0); MEAN CELL VOLUME 99.4 fL (80-100); MEAN CORPUSCULAR HEMOGLOBIN 32.8 pg (25-34); MEAN PLATELET VOLUME 9.1 fL (7.4-10.4); PLATELET COUNT 226 K/uL (130-400); RED CELL DISTRIBUTION WIDTH SD 61.5 fL (36.4-46.3); WHITE BLOOD COUNT 7.24 K/uL (4.8-10.8)
[2017-12-11 17:19] LABS: ALBUMIN 3.2 gm/dl (3.4-5.0); BLOOD UREA NITROGEN 59 mg/dl (7-18); CALCIUM 8.7 mg/dl (8.5-10.1); CARBON DIOXIDE 24 mmol/L (21-32); CREATININE 1.73 mg/dl (0.60-1.40); GLUCOSE 158 mg/dl (70-99); POTASSIUM 4.5 mmol/L (3.5-5.1); SODIUM 140 mmol/L (136-145)
[2017-12-11 17:20] LABS: PHOSPHORUS 3.3 mg/dl (2.5-4.9)
== END | disposition home or self-care (01) ==
LOC: C.LABBC 15:39
PROVIDERS: ATTEND Internal Medicine Nephrology
DX: N25.81 Secondary hyperparathyroidism of renal origin (principal); N18.3 Chronic kidney disease, stage 3 (moderate); R33.9 Retention of urine, unspecified

== ENCOUNTER → 2018-01-10 | Outpatient (CLI) | payer OTHER ==
[2018-01-10 17:10] LABS: ALBUMIN 3.1 gm/dl (3.4-5.0); BLOOD UREA NITROGEN 67 mg/dl (7-18); CALCIUM 8.6 mg/dl (8.5-10.1); CARBON DIOXIDE 29 mmol/L (21-32); CREATININE 2.07 mg/dl (0.60-1.40); GLUCOSE 76 mg/dl (70-99); PHOSPHORUS 4.4 mg/dl (2.5-4.9); POTASSIUM 3.9 mmol/L (3.5-5.1); SODIUM 140 mmol/L (136-145)
== END | disposition home or self-care (01) ==
LOC: C.LABBC 12:18
PROVIDERS: ATTEND Internal Medicine Nephrology
DX: N18.3 Chronic kidney disease, stage 3 (moderate) (principal)

== ENCOUNTER → 2018-01-15 | Outpatient (CLI) | payer OTHER ==
--- NOTE | 2018-01-15 13:40 | DIAGNOSTIC IMAGING REPORT ---
VENOUS DOPPLER LWR EXT BILA HISTORY: Pain. Edema. R60.0 Bilateral edema of lower extremity COMPARISON STUDY: None. FINDINGS: There is normal compressibility, flow, and augmentation within the bilateral lower extremity deep venous systems. IMPRESSION: No DVT within the right or left lower extremity. The above report was generated using voice recognition software. It may contain grammatical, syntax or spelling errors. Electronically signed by: Tian Machado M.D. 01/15/2018 1:39 PM Dictated Date/Time: 01/15/2018 1:39 PM
== END | disposition home or self-care (01) ==
LOC: C.ULTRBC 12:52
PROVIDERS: ATTEND Family Medicine Adult Medicine
DX: R60.0 Localized edema (principal)

== ENCOUNTER → 2018-01-15 | Outpatient (CLI) | payer OTHER | END | disposition home or self-care (01) | LOC: C.PATHSPEC 12:35 | PROVIDERS: ATTEND Dermatology | DX: C44.319 Basal cell carcinoma of skin of other parts of face (principal) ==

== ENCOUNTER → 2018-01-18 | Outpatient (CLI) | payer OTHER ==
[~2018-01-18] VITALS: Ht 175.3 cm; Wt 58.0 kg
[~2018-01-18] MED LIST changes: +CARV3.122 PO; +DUTA0.5C PO; +FURO80TA63 PO; +NVLGI7030 SC; +OXCA150T2 PO; +OXCA300T2 PO
[2018-01-18 13:57] VITALS: BP 118/65; PULSE 58; Ht 175.3 cm; Wt 58.0 kg
== END | disposition home or self-care (01) ==
LOC: C.NEUR 13:46
PROVIDERS: ATTEND Internal Medicine Pulmonary Disease
DX: G47.30 Sleep apnea, unspecified (principal); R60.0 Localized edema; I48.91 Unspecified atrial fibrillation; I27.20 Pulmonary hypertension, unspecified; J44.9 Chronic obstructive pulmonary disease, unspecified; E03.9 Hypothyroidism, unspecified; I12.9 Hypertensive chronic kidney disease with stage 1 through stage 4 chronic kidney disease, or unspecified chronic kidney disease; E11.22 Type 2 diabetes mellitus with diabetic chronic kidney disease; N18.3 Chronic kidney disease, stage 3 (moderate)

== ENCOUNTER 2018-01-22 08:16 | Inpatient (IN) | payer OTHER ==
[~2018-01-22] VITALS: Ht 172.7 cm; Wt 149.4 kg
[~2018-01-22 08:16] MED LIST changes: -CARV3.122 PO; -DUTA0.5C PO; -FURO80TA63 PO; -NVLGI7030 SC; -OXCA150T2 PO; -OXCA300T2 PO
[2018-01-22 08:49] LABS: HEMATOCRIT 32.7 % (42-52); HEMOGLOBIN 10.6 g/dL (14.0-18.0); MEAN CELL VOLUME 98.5 fL (80-100); MEAN CORPUSCULAR HEMOGLOBIN 31.9 pg (25-34); MEAN CORPUSCULAR HGB CONC 32.4 g/dl (32-36); RED CELL DISTRIBUTION WIDTH CV 17.5 % (11.5-14.5); RED CELL DISTRIBUTION WIDTH SD 62.3 fL (36.4-46.3); WHITE BLOOD COUNT 4.69 K/uL (4.8-10.8)
[2018-01-22] MEDS ORDERED: SODIUM CHLORIDE 0.9% 1000ML 1,000 ML IV STA ×2 (08:50)
[2018-01-22 08:57] LABS: ALBUMIN 3.1 gm/dl (3.4-5.0); CALCIUM 8.4 mg/dl (8.5-10.1); CREATININE 3.1 mg/dl (0.60-1.40); POTASSIUM 4.5 mmol/L (3.5-5.1)
[2018-01-22 09:06] LABS: INR 6.2 (0.9-1.1); PTT PATIENT 52.7 SECONDS (21.0-31.0)
[2018-01-22 09:07] LABS: CKMB 13.3 ng/ml (0.5-3.6); TOTAL PROTEIN 6.8 gm/dl (6.4-8.2)
--- NOTE | 2018-01-22 09:13 | DIAGNOSTIC IMAGING REPORT ---
CHEST ONE VIEW PORTABLE HISTORY: 82 years-old Male dyspnea acute shortness of breath with weakness COMPARISON: Chest radiograph 12/03/2017 TECHNIQUE: Portable AP view of the chest FINDINGS: Cardiac silhouette is again enlarged. Atherosclerosis of the aorta. Plate and screw sternotomy fixation devices are present. No pneumothorax. Trace bilateral pleural effusions are noted with subsegmental bibasilar opacities. Mild pulmonary vascular congestion with interstitial coarsening. Bones of the chest appear grossly intact. IMPRESSION: 1. Cardiomegaly with mild pulmonary edema. 2. Trace pleural effusions with subsegmental bibasilar opacities suggesting atelectasis. The above report was generated using voice recognition software. It may contain grammatical, syntax or spelling errors. Electronically signed by: Juan Pablo Murphy M.D. 01/22/2018 9:12 AM Dictated Date/Time: 01/22/2018 9:09 AM
[2018-01-22 09:16] LABS: ISTAT CREATININE 3.2 mg/dl (0.6-1.3); ISTAT IONIZED CALCIUM 1.05 mmol/l (1.12-1.32); ISTAT POTASSIUM 4.4 mEq/L (3.3-5.0)
[2018-01-22 09:17] LABS: BASO % 0.4 %; BASO ABS # 0.02 K/uL (0-0.2); EOS ABS # 0.14 K/uL (0-0.5); IG# 0.02 K/uL (0.00-0.02); LYMPH % 8.5 %; MEAN PLATELET VOLUME 9.8 fL (7.4-10.4); MONO % 8.5 %; NEUT % 79.2 %; NEUT ABS # 3.71 K/uL (1.4-6.5); PLATELET COUNT 93 K/uL (130-400)
[2018-01-22] MEDS ORDERED: VANCOMYCIN 1GM ED/ASU OMNICELL IV STA (09:29)
[2018-01-22] MEDS ORDERED: PIPERACILLIN/TAZOBACTAM 4.5 GM/100ML D5W IV STA (09:29)
[2018-01-22] MEDS ORDERED: NVLGI7030 SC (09:58)
[2018-01-22] MEDS ORDERED: CARV3.122 PO (09:58)
[2018-01-22] MEDS ORDERED: DUTA0.5C PO (09:58)
[2018-01-22] MEDS ORDERED: FURO80TA63 PO (09:58)
[2018-01-22 10:05] LABS: INFLUENZA B ANTIGEN Neg for Influ B (NEG)
[2018-01-22 10:15] VITALS: O2SAT 95; Ht 172.7 cm; Wt 149.4 kg
--- NOTE | 2018-01-22 10:34 | EMERGENCY ROOM VISIT NOTE ---
History First contact with patient: 08:40 Chief Complaint: SHORTNESS OF BREATH Stated Complaint: BREATHING DIFFICULTY/WEAKNESS Nursing Triage Summary: pt reports sob and weakness for 1 week. has ext swelling.pt denies any pain at this time reports weakness is with mobility not in hands no problem gripping, just unable to move feet as well. per son pt has been using home o2 during the day at times over the past week. heart rate in 50's afib. pt has hx of chf, diabetes History of Present Illness The patient is a 82 year old male who presents to the Emergency Room with complaints of "difficulty breathing/weakness". Acutely, he has no complaints. The patient and son states that he has had increased weakness for the past few months but acutely worsened over the past week or so to include that of shortness of breath as well. He notes that the redness of the legs is chronic. He notes a chronic indwelling Mckeon catheter. There is no chest pain or palpitations. There have been no fevers, chills, aches, sweats, lightheadedness , dizziness, recent illness. He does not require oxygen during the day. He notes a history of bypass surgery, valve replacement, and atrial fibrillation which she is chronically on Coumadin. His last INR was elevated. He denies any tobacco use. He lives with his . Review of Systems A complete 10-point Review of Systems was discussed with the patient, with pertinent positives and negatives listed in the History of Present Illness. All remaining Review of Systems questions can be considered negative unless otherwise specified. 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 (22) Metabolic acidosis (23) MRSA bacteremia (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 (25) Painful diabetic neuropathy (26) Pulmonary hypertension (27) Secondary hyperparathyroidism (28) Shortness of breath (29) SIRS (systemic inflammatory response syndrome) (30) Sleep apnea (31) Stage 3 chronic kidney disease (32) Urinary retention Surgical Problems: (1) Hx of CABG Family History FH: diabetes mellitus FH: hypertension Social History Smoking Status: Never Smoker Drug Use: none Marital Status: Housing Status: lives with significant other Occupation Status: retired Current/Historical Medications Scheduled Doxycycline Monohydrate (Monodox), 100 MG PO BID Ergocalciferol (Vitamin D 59090 Unit), 50,000 INTER.UNIT PO WK Ferrous Sulfate (Iron), 325 MG PO DAILY Furosemide (Furosemide), 20 MG PO BID17 Insulin Human Isophan/Regular (Humulin 70/30), 20 UNITS SC HS Levothyroxine Sodium (Levothyroxine Sodium), 100 MCG PO DAILY Probiotic Product ([employer]), 1 CAP PO DAILY Simvastatin (Zocor), 20 MG PO DAILY Tamsulosin HCl (Tamsulosin HCl), 0.4 MG PO BID Warfarin Sod (Coumadin), 2.5 MG PO 2XWK Warfarin Sod (Coumadin), 5 MG PO 5XWK Scheduled PRN Albuterol Hfa (Ventolin Hfa), 1-2 PUFFS INH Q4 PRN for SOB/Wheezing Finasteride (Finasteride), 5 MG PO DAILY PRN for sukhwinder Home O2 Therapy (Oxygen), 1.5 LITER NA HS PRN for Shortness of Breath Hydrocodone/Acetaminophen 10MG/325MG ([place] 10MG/325MG), 1 TAB PO TID PRN for Pain Ipratropium-Albuterol (Duoneb), 1 TREATMENT INH TID PRN for Shortness of Breath Miconazole Nitrate (Desenex Shake Powder), 1 APPLN EXT DAILY PRN for Itching Physical Exam Vital Signs Date Time Temp Pulse Resp B/P (MAP) Pulse Ox O2 Delivery O2 Flow Rate FiO2 01/22/18 09:07 49 16 113/61 96 Room Air 01/22/18 08:27 34.0 55 24 110/52 96 Room Air 01/22/18 08:27 96 Room Air 01/22/18 08:27 96 Room Air 01/22/18 08:26 48 Physical Exam VITAL SIGNS - Vital signs and nursing notes were reviewed. Hypothermic. GENERAL - 82-year-old male appearing his stated age who is in no acute distress. Communicates well with provider and answers questions appropriately. SKIN -chronic appearing skin changes erythematous regions overlying the distal legs. HEAD - NC/AT. EYES - PERRL with EOMI bilaterally. Sclera anicteric. EARS - No deformities of external structures noted on gross examination bilaterally. NOSE - Midline and without cyanosis. No epistaxis or purulent drainage noted. MOUTH/OROPHARYNX - Without perioral cyanosis. NECK - Neck with FROM. Supple to palpation. Fair lymphadenopathy noted. No nuchal rigidity. LUNGS -decreased breath sounds noted. No definite crackle. CARDIAC - RRR with S1/S2. No definite murmur noted. ABDOMEN - Abdominal contour normal without pulsations or visible masses. BS normoactive all four quadrants. No tenderness, palpable masses, hepatosplenomegaly, or ascites noted. EXTREMITIES - No clubbing or peripheral cyanosis. No pretibial edema present. + 5/5 strength noted in UE/LE bilaterally. NEUROLOGIC - Cranial nerves II through XII grossly intact. Sensory intact to light touch throughout. PSYCH - A&O, and cooperates fully with examiner. Pt is very pleasant and interacts well with examiner. Medical Decision & Procedures ER Provider Diagnostic Interpretation: CHEST ONE VIEW PORTABLE HISTORY: 82 years-old Male dyspnea acute shortness of breath with weakness COMPARISON: Chest radiograph 12/03/2017 TECHNIQUE: Portable AP view of the chest FINDINGS: Cardiac silhouette is again enlarged. Atherosclerosis of the aorta. Plate and screw sternotomy fixation devices are present. No pneumothorax. Trace bilateral pleural effusions are noted with subsegmental bibasilar opacities. Mild pulmonary vascular congestion with interstitial coarsening. Bones of the chest appear grossly intact. IMPRESSION: 1. Cardiomegaly with mild pulmonary edema. 2. Trace pleural effusions with subsegmental bibasilar opacities suggesting atelectasis. The above report was generated using voice recognition software. It may contain grammatical, syntax or spelling errors. Electronically signed by: Juan Pablo Murphy M.D. 01/22/2018 9:12 AM Dictated Date/Time: 01/22/2018 9:09 AM Laboratory Results 01/22/18 07:54 Red Blood Count 3.32, Mean Corpuscular Volume 98.5, Mean Corpuscular Hemoglobin 31.9, Mean Corpuscular Hemoglobin Concent 32.4, Mean Platelet Volume 9.8, Neutrophils (%) (Auto) 79.2, Lymphocytes (%) (Auto) 8.5, Monocytes (%) (Auto) 8.5, Eosinophils (%) (Auto) 3.0, Basophils (%) (Auto) 0.4, Neutrophils # (Auto) 3.71, Lymphocytes # (Auto) 0.40, Monocytes # (Auto) 0.40, Eosinophils # (Auto) 0.14, Basophils # (Auto) 0.02 01/22/18 07:54 Test 01/22/18 07:54 01/22/18 08:58 01/22/18 09:03 01/22/18 09:20 White Blood Count 4.69 K/uL (4.8-10.8) Red Blood Count 3.32 M/uL (4.7-6.1) Hemoglobin 10.6 g/dL (14.0-18.0) Hematocrit 32.7 % (42-52) Mean Corpuscular Volume 98.5 fL (80-100) Mean Corpuscular Hemoglobin 31.9 pg (25-34) Mean Corpuscular Hemoglobin Concent 32.4 g/dl (32-36) Platelet Count 93 K/uL (130-400) Mean Platelet Volume 9.8 fL (7.4-10.4) Neutrophils (%) (Auto) 79.2 % Lymphocytes (%) (Auto) 8.5 % Monocytes (%) (Auto) 8.5 % Eosinophils (%) (Auto) 3.0 % Basophils (%) (Auto) 0.4 % Neutrophils # (Auto) 3.71 K/uL (1.4-6.5) Lymphocytes # (Auto) 0.40 K/uL (1.2-3.4) Monocytes # (Auto) 0.40 K/uL (0.11-0.59) Eosinophils # (Auto) 0.14 K/uL (0-0.5) Basophils # (Auto) 0.02 K/uL (0-0.2) RDW Standard Deviation 62.3 fL (36.4-46.3) RDW Coefficient of Variation 17.5 % (11.5-14.5) Immature Granulocyte % (Auto) 0.4 % Immature Granulocyte # (Auto) 0.02 K/uL (0.00-0.02) Platelet Estimate DECREASED Prothrombin Time 62.5 SECONDS (9.0-12.0) Prothromb Time International Ratio 6.2 (0.9-1.1) Activated Partial Thromboplast Time 52.7 SECONDS (21.0-31.0) Partial Thromboplastin Ratio 2.0 Est Creatinine Clear Calc Drug Dose 26.7 ml/min Estimated GFR () 20.6 Estimated GFR (Non- 17.8 BUN/Creatinine Ratio 32.8 (10-20) Calcium Level 8.4 mg/dl (8.5-10.1) Magnesium Level 3.0 mg/dl (1.8-2.4) Total Bilirubin 0.8 mg/dl (0.2-1) Aspartate Amino Transf (AST/SGOT) 88 U/L (15-37) Alanine Aminotransferase (ALT/SGPT) 48 U/L (12-78) Alkaline Phosphatase 720 U/L (45-117) Total Creatine Kinase 155 U/L (39-308) Creatine Kinase MB 13.3 ng/ml (0.5-3.6) Creatine Kinase MB Ratio 8.6 (0-3.0) Troponin I 0.034 ng/ml (0-0.045) Pro-B-Type Natriuretic Peptide 2207 pg/ml (0-1800) Total Protein 6.8 gm/dl (6.4-8.2) Albumin 3.1 gm/dl (3.4-5.0) Globulin 3.7 gm/dl (2.5-4.0) Albumin/Globulin Ratio 0.8 (0.9-2) Thyroid Stimulating Hormone (TSH) 5.250 uIu/ml (0.300-4.500) Lactic Acid Level 1.8 mmol/L (0.4-2.0) Bedside Hemoglobin 10.5 g/dl (14.0-18.0) Bedside Hematocrit 31 % (42-52) Bedside Sodium 142 mEq/L (135-144) Bedside Potassium 4.4 mEq/L (3.3-5.0) Bedside Chloride 104 mEq/L (101-112) Bedside Total CO2 25 mEq/l (24-31) Anion Gap 18.0 mmol/L (16-25) Bedside Blood Urea Nitrogen 100 mg/dl (7-18) Bedside Creatinine 3.2 mg/dl (0.6-1.3) Bedside Glucose (other) 106 mg/dl (70-99) Bedside Ionized Calcium (Juan M) 1.05 mmol/l (1.12-1.32) Test 01/22/18 09:50 Medications Administered Medications (Trade) Dose Ordered Sig/Sukhwinder Route Start Time Stop Time Status Last Admin Dose Admin Sodium Chloride 1,000 ml @ 999 mls/hr Q1H1M STAT IV 01/22/18 08:50 01/22/18 09:50 DC 01/22/18 09:05 999 MLS/HR Vancomycin HCl (Vancomycin 1gm Ed/Asu Omnicell) 1 gm NOW STAT IV 01/22/18 09:29 01/22/18 09:31 DC 01/22/18 09:36 1 GM Piperacillin Sod/ Tazobactam Sod (Zosyn Iv) 4.5 gm NOW STAT IV 01/22/18 09:29 01/22/18 09:31 DC 01/22/18 09:36 4.5 GM Medical Decision Patient was seen and evaluated as above in room B4. Review was performed of nursing notes and vital signs. After obtaining a thorough history and physical examination the above work up was performed. He presents hypothermic, with weakness and shortness of breath. Concern is over that for septic presentation. Bedside EKG reveals atrial fibrillation with a slow ventricular response rate of 52 bpm. No evidence of NJ. Chest x-ray reveals volume overload. No pneumonia. CBC reveals decreased white blood cell count with hemoglobin at 10.6. Decreased platelet count. INR 6.2. Metabolic panel reveals no concerning electrode abnormality. Creatinine is increased from previous now 3.10. Lactic acid negative. Cultures pending. Magnesium low at 3.0. AST high at 88. Alk phos at 720. Troponin currently negative. TSH normal. BNP is elevated at 2207. Urine reveals 3+ occult blood, moderate leukocytes and epithelial cells. Concern is that of potential UTI. Negative for influenza. He was probably placed on a Farida hugger, and was conversing well. I do believe that inpatient management is warranted. He was given broad- spectrum antibiotics here and fluid but care was taken so as to not additionally fluid overload him. I discussed this with the attending physician who also personally evaluate the patient as well as the attending hospitalist, Dr. Janneth Gold. He will be admitted for for further evaluation and management. Please refer to for the documentation regarding his stay. Case was discussed with the attending physician. I attest that I have personally reviewed the patient medication list. In the evaluation and treatment of this patient the following differential diagnoses were entertained: Sepsis, UTI, NJ, PE, CVA, among others. Impression Primary Impression: Weakness Additional Impression: Dyspnea Departure Information Dispostion Admitted as an inpatient Condition POOR Referrals Winston Harper M.D. (PCP) Patient Instructions My [facility] Problem Qualifiers
[2018-01-22] MEDS ORDERED: ONDANSETRON INJ 2 MG/ML 2 ML VIAL IV PRN (10:45)
[2018-01-22] MEDS ORDERED: ALBUTEROL HFA 8 GM INHALER INH PRN (10:45)
[2018-01-22] MEDS ORDERED: POLYETHYLENE (MIRALAX) 17 GM PACK PO PRN (10:45)
[2018-01-22] MEDS ORDERED: GLUCOSE 40% GEL 15 GM TUBE PO PRN (10:45)
[2018-01-22] MEDS ORDERED: PIPERACILL/TAZOBAC CONSULT ACTIVE PRN (10:45)
[2018-01-22] MEDS ORDERED: DEXTROSE 50% 50 ML SYR IV PRN (10:45)
[2018-01-22] MEDS ORDERED: ALUMINUM/MAGNESIUM/SIMETH (MAALOX MAX) 30 ML UDC PO PRN (10:45)
[2018-01-22] MEDS ORDERED: CARBOHYDRATES FOR HYPOGLYCEMIA PO PRN (10:45)
[2018-01-22] MEDS ORDERED: VANCOMYCIN CONSULT ACTIVE PRN (10:45)
[2018-01-22] MEDS ORDERED: ALBUT/IPRATROP 3MG/0.5MG NEB 3 ML VIAL INH PRN (10:45)
[2018-01-22] MEDS ORDERED: GLUCOSE 10 TABS/TUBE PO PRN (10:45)
[2018-01-22] MEDS ORDERED: MAGNESIUM HYDROXIDE SUSP 30 ML UDC PO PRN (10:45)
[2018-01-22] MEDS ORDERED: GLUCAGON FOR INJ 1 MG VIAL SQ PRN (10:45)
[2018-01-22] MEDS ORDERED: MICONAZOLE NITRATE POWDER 43 GM EXT PRN (10:45)
[2018-01-22] MEDS ORDERED: OXCA300T2 PO (11:03)
[2018-01-22] MEDS ORDERED: OXCA150T2 PO (11:03)
--- NOTE | 2018-01-22 11:12 | EMERGENCY ROOM VISIT NOTE ---
ED Visit Note First contact with patient: 08:40 I have seen and examined this patient with Kulwant Rogers and generally agree with the treatment plan as discussed. Problem List Medical Problems: (1) A-fib Status: Chronic (2) Anemia Status: Chronic (3) ASCVD (arteriosclerotic cardiovascular disease) Status: Chronic (4) CHF (congestive heart failure) Status: Chronic (5) COPD (chronic obstructive pulmonary disease) Status: Chronic (6) Dermatitis, seborrheic Status: Chronic (7) Diabetes Status: Chronic (8) Elevated alkaline phosphatase level Status: Chronic (9) Elevated LFTs Status: Chronic (10) Hyperlipidemia Status: Chronic (11) Hypertension Status: Chronic (12) Hypothyroid Status: Chronic (13) Ichthyosis Status: Chronic (14) Painful diabetic neuropathy Status: Chronic (15) Pulmonary hypertension Status: Chronic (16) Secondary hyperparathyroidism Status: Chronic (17) Sleep apnea Status: Chronic (18) Stage 3 chronic kidney disease Status: Chronic Surgical Problems: (1) Hx of CABG Status: Resolved Current/Historical Medications Scheduled Doxycycline Monohydrate (Monodox), 100 MG PO BID Dutasteride (Avodart), 0.5 MG PO DAILY Ergocalciferol (Vitamin D 44625 Unit), 50,000 INTER.UNIT PO WK Ferrous Sulfate (Iron), 325 MG PO DAILY Furosemide (Lasix), 80 MG PO BID Insulin Aspart Protamine & Asp (Novolog Mix 70/30), 20 UNITS SC QPM Levothyroxine Sodium (Levothyroxine Sodium), 100 MCG PO DAILY Oxcarbazepine (Trileptal), 150 MG PO QAM Oxcarbazepine (Trileptal), 1 TAB PO QPM Probiotic Product (GumGum), 1 CAP PO DAILY Simvastatin (Zocor), 20 MG PO DAILY Tamsulosin HCl (Tamsulosin HCl), 0.4 MG PO BID Warfarin Sod (Coumadin), 2.5 MG PO 2XWK Warfarin Sod (Coumadin), 5 MG PO 5XWK Scheduled PRN Albuterol Hfa (Ventolin Hfa), 1-2 PUFFS INH Q4 PRN for SOB/Wheezing Home O2 Therapy (Oxygen), 1.5 LITER NA HS PRN for Shortness of Breath Ipratropium-Albuterol (Duoneb), 1 TREATMENT INH TID PRN for Shortness of Breath Miconazole Nitrate (Desenex Shake Powder), 1 APPLN EXT DAILY PRN for Itching Allergies Coded Allergies: Amoxicillin (Unverified Allergy, Unknown, ., 01/22/18) CI Pigment Blue 63 (Unverified Allergy, Unknown, ., 01/22/18) Duloxetine (Unverified Allergy, Unknown, ., 01/22/18) Gabapentin (Unverified Allergy, Unknown, ., 01/22/18) Nitrofurantoin (Unverified Allergy, Unknown, ., 01/22/18) Pregabalin (Unverified Allergy, Unknown, ., 01/22/18) Chlorpheniramine (Verified Adverse Reaction, Intermediate, "CAUSE PROSTATE TO ENLARGE", 01/22/18) Linezolid (Verified Adverse Reaction, Intermediate, GI SYMPTOMS, 01/22/18) Concommitant GI bleed Phenylpropanolamine (Verified Adverse Reaction, Intermediate, "CAUSE PROSTATE TO ENLARGE"., 01/22/18) Vital Signs Date Time Temp Pulse Resp B/P (MAP) Pulse Ox O2 Delivery O2 Flow Rate FiO2 01/22/18 10:15 95 Room Air 01/22/18 09:51 34.0 54 22 123/61 95 Room Air 01/22/18 09:07 49 16 113/61 96 Room Air 01/22/18 08:27 34.0 55 24 110/52 96 Room Air 01/22/18 08:27 96 Room Air 01/22/18 08:27 96 Room Air 01/22/18 08:26 48 Laboratory Results 01/22/18 07:54 Red Blood Count 3.32, Mean Corpuscular Volume 98.5, Mean Corpuscular Hemoglobin 31.9, Mean Corpuscular Hemoglobin Concent 32.4, Mean Platelet Volume 9.8, Neutrophils (%) (Auto) 79.2, Lymphocytes (%) (Auto) 8.5, Monocytes (%) (Auto) 8.5, Eosinophils (%) (Auto) 3.0, Basophils (%) (Auto) 0.4, Neutrophils # (Auto) 3.71, Lymphocytes # (Auto) 0.40, Monocytes # (Auto) 0.40, Eosinophils # (Auto) 0.14, Basophils # (Auto) 0.02 01/22/18 07:54 Test 01/22/18 07:54 01/22/18 08:58 01/22/18 09:03 01/22/18 09:20 White Blood Count 4.69 K/uL (4.8-10.8) Red Blood Count 3.32 M/uL (4.7-6.1) Hemoglobin 10.6 g/dL (14.0-18.0) Hematocrit 32.7 % (42-52) Mean Corpuscular Volume 98.5 fL (80-100) Mean Corpuscular Hemoglobin 31.9 pg (25-34) Mean Corpuscular Hemoglobin Concent 32.4 g/dl (32-36) Platelet Count 93 K/uL (130-400) Mean Platelet Volume 9.8 fL (7.4-10.4) Neutrophils (%) (Auto) 79.2 % Lymphocytes (%) (Auto) 8.5 % Monocytes (%) (Auto) 8.5 % Eosinophils (%) (Auto) 3.0 % Basophils (%) (Auto) 0.4 % Neutrophils # (Auto) 3.71 K/uL (1.4-6.5) Lymphocytes # (Auto) 0.40 K/uL (1.2-3.4) Monocytes # (Auto) 0.40 K/uL (0.11-0.59) Eosinophils # (Auto) 0.14 K/uL (0-0.5) Basophils # (Auto) 0.02 K/uL (0-0.2) RDW Standard Deviation 62.3 fL (36.4-46.3) RDW Coefficient of Variation 17.5 % (11.5-14.5) Immature Granulocyte % (Auto) 0.4 % Immature Granulocyte # (Auto) 0.02 K/uL (0.00-0.02) Platelet Estimate DECREASED Prothrombin Time 62.5 SECONDS (9.0-12.0) Prothromb Time International Ratio 6.2 (0.9-1.1) Activated Partial Thromboplast Time 52.7 SECONDS (21.0-31.0) Partial Thromboplastin Ratio 2.0 Est Creatinine Clear Calc Drug Dose 26.7 ml/min Estimated GFR () 20.6 Estimated GFR (Non- 17.8 BUN/Creatinine Ratio 32.8 (10-20) Calcium Level 8.4 mg/dl (8.5-10.1) Magnesium Level 3.0 mg/dl (1.8-2.4) Total Bilirubin 0.8 mg/dl (0.2-1) Aspartate Amino Transf (AST/SGOT) 88 U/L (15-37) Alanine Aminotransferase (ALT/SGPT) 48 U/L (12-78) Alkaline Phosphatase 720 U/L (45-117) Total Creatine Kinase 155 U/L (39-308) Creatine Kinase MB 13.3 ng/ml (0.5-3.6) Creatine Kinase MB Ratio 8.6 (0-3.0) Troponin I 0.034 ng/ml (0-0.045) Pro-B-Type Natriuretic Peptide 2207 pg/ml (0-1800) Total Protein 6.8 gm/dl (6.4-8.2) Albumin 3.1 gm/dl (3.4-5.0) Globulin 3.7 gm/dl (2.5-4.0) Albumin/Globulin Ratio 0.8 (0.9-2) Thyroid Stimulating Hormone (TSH) 5.250 uIu/ml (0.300-4.500) Lactic Acid Level 1.8 mmol/L (0.4-2.0) Bedside Hemoglobin 10.5 g/dl (14.0-18.0) Bedside Hematocrit 31 % (42-52) Bedside Sodium 142 mEq/L (135-144) Bedside Potassium 4.4 mEq/L (3.3-5.0) Bedside Chloride 104 mEq/L (101-112) Bedside Total CO2 25 mEq/l (24-31) Anion Gap 18.0 mmol/L (16-25) Bedside Blood Urea Nitrogen 100 mg/dl (7-18) Bedside Creatinine 3.2 mg/dl (0.6-1.3) Bedside Glucose (other) 106 mg/dl (70-99) Bedside Ionized Calcium (Juan M) 1.05 mmol/l (1.12-1.32) Influenza Type A Antigen Neg for Influ A (NEG) Influenza Type B Antigen Neg for Influ B (NEG) Test 01/22/18 09:50 Urine Color YELLOW Urine Appearance TURBID (CLEAR) Urine pH 5.0 (4.5-7.5) Urine Specific [place] 1.018 (1.000-1.030) Urine Protein TRACE (NEG) Urine Glucose (UA) NEG (NEG) Urine Ketones NEG (NEG) Urine Occult Blood 3+ (NEG) Urine Nitrite NEG (NEG) Urine Bilirubin NEG (NEG) Urine Urobilinogen NEG (NEG) Urine Leukocyte Esterase MODERATE (NEG) Urine WBC (Auto) 5-10 /hpf (0-5) Urine RBC (Auto) 10-30 /hpf (0-4) Urine Hyaline Casts (Auto) 1-5 /lpf (0-5) Urine Epithelial Cells (Auto) 5-10 /lpf (0-5) Urine Bacteria (Auto) NEG (NEG) Urine Renal Epithelial Cells /lpf (0-5) Urine Pathogenic Casts 0-3 GRANULAR CASTS /lpf (0) Urine Yeast (Auto) BUDDING (NONE PRSENT) Medications Administered Medications (Trade) Dose Ordered Sig/Sukhwinder Route Start Time Stop Time Status Last Admin Dose Admin Sodium Chloride 1,000 ml @ 999 mls/hr Q1H1M STAT IV 01/22/18 08:50 01/22/18 09:50 DC 01/22/18 09:05 999 MLS/HR Vancomycin HCl (Vancomycin 1gm Ed/Asu Omnicell) 1 gm NOW STAT IV 01/22/18 09:29 01/22/18 09:31 DC 01/22/18 09:36 1 GM Piperacillin Sod/ Tazobactam Sod (Zosyn Iv) 4.5 gm NOW STAT IV 01/22/18 09:29 01/22/18 09:31 DC 01/22/18 09:36 4.5 GM Departure Information Impression Primary Impression: Weakness Additional Impression: Dyspnea Dispostion Admitted as an inpatient Condition POOR Referrals Winston Harper M.D. (PCP) Patient Instructions [facility] Problem Qualifiers
--- NOTE | 2018-01-22 11:26 | History and Physical ---
History & Physical Date & Time of Service: January 22, 2018 at 11:08 Chief Complaint: Breathing Difficulty/Weakness Primary Care Physician: Winston Harper M.D. History of Present Illness Source: patient, family (son at bedside), clinic records, hospital records This is an 82 y/o male with a history of CAD, h/o PA s/p CABG x 2 2007, HTN, HLD , chronic diastolic CHF, a-fib, COPD, DM II with neuropathy, hypothyroidism, JACEK , CKD stage III-IV, lymphedema, EVENS, and urinary retention who presented to the ED on 01/22 with weakness and increased shortness of breath x 1 week. The patient states he was been weaker and more short of breath over the last week. Today, he had difficulty getting up with even with his 's help, prompting him to come to the ED. The patient notes a rapid 9 pound weight gain recently but states that the swelling in his legs is about baseline. He states he is compliant with his Lasix and denies any dietary changes. He reports wheezing and a productive cough with clear sputum at home. The patient has a chronic Mckeon for the last 6 weeks due to urinary retention. He notes his urine output seemed decreased last night and has been dark in color. He denies any foul odors. The patient also notes decreased appetite lately. The patient denies fevers, chills, sweats, chest pain, palpitations, claudication, nausea, vomiting , abdominal pain, dysuria, hematuria, paralysis, weakness, acute numbness and tingling. Past Medical/Surgical History Medical Problems: (1) A-fib (2) Acute kidney injury (3) Acute kidney injury (4) Anemia (5) ASCVD (arteriosclerotic cardiovascular disease) (6) Bleeding from PICC line (7) BPH (benign prostatic hyperplasia) (8) Cellulitis of left lower extremity (9) CHF (congestive heart failure) (10) Chronic kidney disease (11) Chronic kidney disease (12) COPD (chronic obstructive pulmonary disease) (13) Dermatitis, seborrheic (14) Diabetes (15) Elevated alkaline phosphatase level (16) Elevated LFTs (17) Facial abrasion (18) Failure of outpatient treatment (19) Fever (20) Fever (21) Fever (22) Fever of unknown origin (23) Hyperlipidemia (24) Hypertension (25) Hyponatremia (26) Hypotension (27) Hypothyroid (28) Hypoxia (29) Ichthyosis (30) Lactic acid acidosis (31) Leukocytosis (32) Leukocytosis (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 (34) Metabolic acidosis (35) MRSA bacteremia (36) Osteomyelitis of left foot (37) Painful diabetic neuropathy (38) Pneumonia (39) Pulmonary hypertension (40) Renal failure (41) Secondary hyperparathyroidism (42) Sepsis (43) Sepsis (44) Shortness of breath (45) SIRS (systemic inflammatory response syndrome) (46) Sleep apnea (47) Stage 3 chronic kidney disease (48) Urinary retention (49) UTI (urinary tract infection) (50) UTI (urinary tract infection) Surgical Problems: (1) Hx of CABG Family History FH: diabetes mellitus FH: hypertension Myocardial infarction Social History Smoking Status: Never Smoker Smokeless Tobacco Use: No Alcohol Use: none Drug Use: none Marital Status: Housing status: lives with significant other Occupational Status: retired Immunizations History of Influenza Vaccine: Yes History of Tetanus Vaccine?: Yes History of Pneumococcal: Yes History of Hepatitis B Vaccine: Yes Allergies Coded Allergies: Amoxicillin (Unverified Allergy, Unknown, ., 01/22/18) CI Pigment Blue 63 (Unverified Allergy, Unknown, ., 01/22/18) Duloxetine (Unverified Allergy, Unknown, ., 01/22/18) Gabapentin (Unverified Allergy, Unknown, ., 01/22/18) Nitrofurantoin (Unverified Allergy, Unknown, ., 01/22/18) Pregabalin (Unverified Allergy, Unknown, ., 01/22/18) Chlorpheniramine (Verified Adverse Reaction, Intermediate, "CAUSE PROSTATE TO ENLARGE", 01/22/18) Linezolid (Verified Adverse Reaction, Intermediate, GI SYMPTOMS, 01/22/18) Concommitant GI bleed Phenylpropanolamine (Verified Adverse Reaction, Intermediate, "CAUSE PROSTATE TO ENLARGE"., 01/22/18) Home Medications Scheduled Doxycycline Monohydrate (Monodox), 100 MG PO BID Dutasteride (Avodart), 0.5 MG PO DAILY Ergocalciferol (Vitamin D 80493 Unit), 50,000 INTER.UNIT PO WK Ferrous Sulfate (Iron), 325 MG PO DAILY Furosemide (Lasix), 80 MG PO BID Insulin Aspart Protamine & Asp (Novolog Mix 70/30), 20 UNITS SC QPM Levothyroxine Sodium (Levothyroxine Sodium), 100 MCG PO DAILY Oxcarbazepine (Trileptal), 150 MG PO QAM Oxcarbazepine (Trileptal), 1 TAB PO QPM Probiotic Product ([email or web address]), 1 CAP PO DAILY Simvastatin (Zocor), 20 MG PO DAILY Tamsulosin HCl (Tamsulosin HCl), 0.4 MG PO BID Warfarin Sod (Coumadin), 2.5 MG PO 2XWK Warfarin Sod (Coumadin), 5 MG PO 5XWK Scheduled PRN Albuterol Hfa (Ventolin Hfa), 1-2 PUFFS INH Q4 PRN for SOB/Wheezing Home O2 Therapy (Oxygen), 1.5 LITER NA HS PRN for Shortness of Breath Ipratropium-Albuterol (Duoneb), 1 TREATMENT INH TID PRN for Shortness of Breath Miconazole Nitrate (Desenex Shake Powder), 1 APPLN EXT DAILY PRN for Itching Review of Systems Constitutional: +Generalized weakness. No fever, No chills, No sweats Eyes: No worsening of vision, No eye pain, No diplopia ENT: No hearing loss, No nasal symptoms, No trouble swallowing Respiratory: +Productive cough, wheezing, SOB. Cardiovascular: No chest pain, No claudication, No palpitations Abdomen: No pain, No nausea, No vomiting Musculoskeletal: No joint pain, No muscle pain, No swelling Genitourinary - Male: +Urinary retention, has chronic Mckeon. No dysuria, No hematuria Neurologic: No paralysis, No weakness, No acute numbness/tingling Integumentary: +Chronic lymphedema. No rash, No itch, No color change Physical Exam Vital Signs Date Time Temp Pulse Resp B/P (MAP) Pulse Ox O2 Delivery O2 Flow Rate FiO2 01/22/18 10:15 95 Room Air 01/22/18 09:51 34.0 54 22 123/61 95 Room Air 01/22/18 09:07 49 16 113/61 96 Room Air 01/22/18 08:27 34.0 55 24 110/52 96 Room Air 01/22/18 08:27 96 Room Air 01/22/18 08:27 96 Room Air 01/22/18 08:26 48 General appearance: +Morbidly obese. Well-developed, well-nourished, no apparent distress Head: Normocephalic, atraumatic Eyes: Normal inspection, PERRL, EOMI ENT: Normal ENT inspection, hearing grossly normal, pharynx normal Neck: Supple, no JVD, trachea midline Respiratory/Chest: +Decreased breath sounds, poor respiratory effort. Lungs clear to auscultation, normal breath sounds, no respiratory distress Cardiovascular: +Irregularly irregular, bradycardic. No gallop, no murmur Abdomen/GI: Normal bowel sounds, non-tender, soft Extremities/Musculoskeletal: +Erythema of bilateral lower extremities and swelling at baseline per pt. 1-2+ pitting edema. No calf tenderness Neurological/Psych: Alert, normal mood/affect, oriented x 3 Skin: Normal color, warm/dry, no rash Diagnostics Laboratory Results Results Past 24 Hours Test 01/22/18 07:54 01/22/18 08:58 01/22/18 09:03 01/22/18 09:20 Range/Units White Blood Count 4.69 4.8-10.8 K/uL Red Blood Count 3.32 4.7-6.1 M/uL Hemoglobin 10.6 14.0-18.0 g/dL Hematocrit 32.7 42-52 % Mean Corpuscular Volume 98.5 80-100 fL Mean Corpuscular Hemoglobin 31.9 25-34 pg Mean Corpuscular Hemoglobin Concent 32.4 32-36 g/dl Platelet Count 93 130-400 K/uL Mean Platelet Volume 9.8 7.4-10.4 fL Neutrophils (%) (Auto) 79.2 % Lymphocytes (%) (Auto) 8.5 % Monocytes (%) (Auto) 8.5 % Eosinophils (%) (Auto) 3.0 % Basophils (%) (Auto) 0.4 % Neutrophils # (Auto) 3.71 1.4-6.5 K/uL Lymphocytes # (Auto) 0.40 1.2-3.4 K/uL Monocytes # (Auto) 0.40 0.11-0.59 K/uL Eosinophils # (Auto) 0.14 0-0.5 K/uL Basophils # (Auto) 0.02 0-0.2 K/uL RDW Standard Deviation 62.3 36.4-46.3 fL RDW Coefficient of Variation 17.5 11.5-14.5 % Immature Granulocyte % (Auto) 0.4 % Immature Granulocyte # (Auto) 0.02 0.00-0.02 K/uL Platelet Estimate DECREASED Prothrombin Time 62.5 9.0-12.0 SECONDS Prothromb Time International Ratio 6.2 0.9-1.1 Activated Partial Thromboplast Time 52.7 21.0-31.0 SECONDS Partial Thromboplastin Ratio 2.0 Sodium Level 140 136-145 mmol/L Potassium Level 4.5 3.5-5.1 mmol/L Chloride Level 106 98-107 mmol/L Carbon Dioxide Level 24 21-32 mmol/L Anion Gap 11.0 18.0 16-25 mmol/L Blood Urea Nitrogen 102 7-18 mg/dl Creatinine 3.10 0.60-1.40 mg/dl Est Creatinine Clear Calc Drug Dose 26.7 ml/min Estimated GFR () 20.6 Estimated GFR (Non- 17.8 BUN/Creatinine Ratio 32.8 10-20 Random Glucose 117 70-99 mg/dl Calcium Level 8.4 8.5-10.1 mg/dl Magnesium Level 3.0 1.8-2.4 mg/dl Total Bilirubin 0.8 0.2-1 mg/dl Aspartate Amino Transf (AST/SGOT) 88 15-37 U/L Alanine Aminotransferase (ALT/SGPT) 48 12-78 U/L Alkaline Phosphatase 720 45-117 U/L Total Creatine Kinase 155 39-308 U/L Creatine Kinase MB 13.3 0.5-3.6 ng/ml Creatine Kinase MB Ratio 8.6 0-3.0 Troponin I 0.034 0-0.045 ng/ml Pro-B-Type Natriuretic Peptide 2207 0-1800 pg/ml Total Protein 6.8 6.4-8.2 gm/dl Albumin 3.1 3.4-5.0 gm/dl Globulin 3.7 2.5-4.0 gm/dl Albumin/Globulin Ratio 0.8 0.9-2 Thyroid Stimulating Hormone (TSH) 5.250 0.300-4.500 uIu/ml Lactic Acid Level 1.8 0.4-2.0 mmol/L Bedside Hemoglobin 10.5 14.0-18.0 g/dl Bedside Hematocrit 31 42-52 % Bedside Sodium 142 135-144 mEq/L Bedside Potassium 4.4 3.3-5.0 mEq/L Bedside Chloride 104 101-112 mEq/L Bedside Total CO2 25 24-31 mEq/l Bedside Blood Urea Nitrogen 100 7-18 mg/dl Bedside Creatinine 3.2 0.6-1.3 mg/dl Bedside Glucose (other) 106 70-99 mg/dl Bedside Ionized Calcium (Juan M) 1.05 1.12-1.32 mmol/l Influenza Type A Antigen Neg for Influ A NEG Influenza Type B Antigen Neg for Influ B NEG Test 01/22/18 09:50 Range/Units Urine Color YELLOW Urine Appearance TURBID CLEAR Urine pH 5.0 4.5-7.5 Urine Specific [place] 1.018 1.000-1.030 Urine Protein TRACE NEG Urine Glucose (UA) NEG NEG Urine Ketones NEG NEG Urine Occult Blood 3+ NEG Urine Nitrite NEG NEG Urine Bilirubin NEG NEG Urine Urobilinogen NEG NEG Urine Leukocyte Esterase MODERATE NEG Urine WBC (Auto) 5-10 0-5 /hpf Urine RBC (Auto) 10-30 0-4 /hpf Urine Hyaline Casts (Auto) 1-5 0-5 /lpf Urine Epithelial Cells (Auto) 5-10 0-5 /lpf Urine Bacteria (Auto) NEG NEG Urine Renal Epithelial Cells 0-5 /lpf Urine Pathogenic Casts 0-3 GRANULAR CASTS 0 /lpf Urine Yeast (Auto) BUDDING NONE PRSENT Microbiology Results 01/22/18 Blood Culture, Received Pending 01/22/18 Blood Culture, Received Pending 01/22/18 Urine Culture, Received Pending Diagnostic Radiology Reviewed the following studies and agree with interpretation as follows: CHEST ONE VIEW PORTABLE HISTORY: 82 years-old Male dyspnea acute shortness of breath with weakness COMPARISON: Chest radiograph 12/03/2017 TECHNIQUE: Portable AP view of the chest FINDINGS: Cardiac silhouette is again enlarged. Atherosclerosis of the aorta. Plate and screw sternotomy fixation devices are present. No pneumothorax. Trace bilateral pleural effusions are noted with subsegmental bibasilar opacities. Mild pulmonary vascular congestion with interstitial coarsening. Bones of the chest appear grossly intact. IMPRESSION: 1. Cardiomegaly with mild pulmonary edema. 2. Trace pleural effusions with subsegmental bibasilar opacities suggesting atelectasis. EKG Reviewed EKG and agree with interpretation as follows: 52 bpm, atrial fibrillation Impression Assessment and Plan 82 y/o male with a history of CAD, h/o PA s/p CABG x 2 2007, HTN, HLD, chronic diastolic CHF, a-fib, COPD, DM II with neuropathy, hypothyroidism, JACEK, CKD stage III-IV, lymphedema, EVENS, and urinary retention who presented to the ED on 01/22 with weakness and increased shortness of breath x 1 week. Pt hypothermic on arrival with temperature of 34.0C rectally. Pt bradycardic but otherwise VSS. CXR shows mild pulmonary edema and trace effusions. EKG no ischemic changes. INR supratherapeutic at 6.2. Creatinine elevated above baseline at 3.10. Lactic acid WNL. LFTs elevated above baseline. Pt received vanc, Zosyn and IVF in ED. Possible sepsis, unknown source -Admit to telemetry -Continue empiric vancomycin and Zosyn for now -Blood cultures pending -Flu swab pending -UA positive for yeast, urine culture pending -Diflucan 200 mg PO x1, then 100 mg PO qd for renal dosing -Will hold on further IVF for now due to possible fluid overload Possible acute on chronic diastolic CHF -Mild edema on CXR, BNP elevated -Pt reports dry weight is 320 lb -Will hold IV diuresis for now given CARLO and possible sepsis CARLO on CKD stage III-IV -Baseline creatinine 1.7-2.0 -Creatinine 3.10 on admission -Hold Lasix for now -Will recheck PRP at 1500 CAD, h/o PA, CABG, HTN, HLD--stable -Continue Zocor 20 mg PO qd A-fib, supratherapeutic INR--a-fib rate controlled -INR 6.2 on admission -Hold warfarin -No obvious bleeding currently, Hgb stable. Will hold reversal. Continue to monitor COPD--no wheezing appreciated -Continue prn DuoNeb, albuterol inhaler DM II w/neuropathy--last HgbA1c 7.1 on 11/14/17 -Hold 70/30 -Insulin sliding scale -Check BSGs q ac and qhs -Continue Trileptal 150 mg PO qam and 300 mg PO hs Hypothyroidism -TSH 5.25, recheck in 4-6 weeks after acute illness resolved -Continue Synthroid 100 mcg PO qd JACEK--stable -Hgb roughly at baseline -Continue ferrous sulfate EVENS -Pt may use own CPAP w/2L NC at night Urinary retention -Continue Flomax BID and Mckeon -Convert Avodart to Proscar 5 mg PO qd DVT prophylaxis -Hold chemical ppx due to supratherapeutic INR -SARBJIT shahriare and SCDs Code Status -Level I, FULL RESUSCITATION STATUS -Pt states he is unsure what he wants for code status, can address again later Supervising Note Dr. Carrillo I performed a history and physical examination on the patient. I reviewed above note and agree with it. I discussed plan with APC and patient. During my face to face encounter with the patient, I answered all of the patient's questions. will place on empiric antibiotics. will continue to monitor vitals especially temperature. unsure of the etiology of his hypothermia. will continue to monitor. Advanced Directives Existing Living Will: Yes Existing Power of Pump Servicer Helper: Yes Resuscitation Status VTE Prophylaxis Will order VTE Prophylaxis: Yes Reason for no VTE drug order: Contraindicated
[2018-01-22] MEDS ORDERED: PIPERACILL/TAZOBAC IV 3.375 GM in DEXTROSE 5% 100ML 100 ML IV SCH (12:00)
[2018-01-22] MEDS ORDERED: FLUCONAZOLE 100 MG TAB PO ONE (12:15)
[2018-01-22] MEDS: INSULIN ASPART 100 UNITS/ML 3 ML PEN SC SCH ×3 (13:50→20:28)
[2018-01-22 13:56] VITALS: BP 117/61; PULSE 55; TEMP 36.5; O2SAT 97
[2018-01-22] MEDS ORDERED: PHYTONADIONE 5 MG TAB PO STA (14:23)
[2018-01-22 15:56] VITALS: BP 123/57; PULSE 57; TEMP 36.5; O2SAT 99
[2018-01-22 15:56] LABS: CREATININE 3.11 mg/dl (0.60-1.40); POTASSIUM 4.4 mmol/L (3.5-5.1)
[2018-01-22] MEDS ORDERED: PIPERACILL/TAZOBAC IV 4.5 GM in D5W 100 ML IV ONE (16:30)
[2018-01-22] MEDS ORDERED: VANCOMYCIN IV 1,500 MG in SODIUM CHLORIDE 0.9% 500ML 500 ML IV ONE (16:30)
--- NOTE | 2018-01-22 16:32 | Pharmacy Progress Note ---
Pharmacy Abx Dose Short Note Date of Service January 22, 2018. Assessment & Plan Assessment 82 year old male receiving Vancomycin/Zosyn for treatment of Empiric antibiotic coverage Day # 1/2 of antimicrobial therapy. Plan Vancomycin Patient received 1000mg (~7mg/kg) IV in ED @ ~1000 01/22/18. Started maint. dose of 1500mg (~15mg/kg) @ 1630. Will follow patient in am (01/23/18) due to potential improvement of renal function. Will reassess and order medication and levels. Also to continue with Zosyn 4.5 gm IV q8h. Pharmacy will continue to follow and will adjust dose/frequency as necessary. Thank you.
[2018-01-22] MEDS: TAMSULOSIN HCL 0.4 MG CAP PO SCH (19:49)
[2018-01-22] MEDS: OXCARBAZEPINE 150 MG TAB PO SCH (19:49)
[2018-01-22] MEDS: ACETAMINOPHEN 325 MG TAB PO PRN (19:50)
[2018-01-22 19:54] VITALS: BP 123/57; PULSE 56; TEMP 36.5; O2SAT 100
[2018-01-22] MEDS ORDERED: VANCOMYCIN IV 1,000 MG in SODIUM CHLORIDE 0.9% 250ML 250 ML IV SCH (21:00)
[2018-01-22 23:35] VITALS: BP 107/53; PULSE 51; TEMP 35.8; O2SAT 95
[2018-01-22] MEDS: PIPERACILL/TAZOBAC IV 4.5 GM in D5W 100 ML IV SCH (23:42)
[2018-01-23 03:51] VITALS: BP 130/63; PULSE 58; TEMP 36.4; O2SAT 93
[2018-01-23] MEDS: LEVOTHYROXINE 100 MCG TAB PO SCH (05:54)
[2018-01-23 06:21] LABS: HEMATOCRIT 30.2 % (42-52); MEAN CELL VOLUME 98.4 fL (80-100); MEAN CORPUSCULAR HEMOGLOBIN 32.6 pg (25-34); MEAN CORPUSCULAR HGB CONC 33.1 g/dl (32-36); NUCLEATED RED BLOOD CELL ABS 0.03 K/uL (0-0); RED CELL DISTRIBUTION WIDTH CV 17.5 % (11.5-14.5); RED CELL DISTRIBUTION WIDTH SD 62.7 fL (36.4-46.3); WHITE BLOOD COUNT 4.83 K/uL (4.8-10.8)
[2018-01-23 06:23] LABS: MEAN PLATELET VOLUME 9.9 fL (7.4-10.4); PLATELET COUNT 85 K/uL (130-400)
[2018-01-23 07:01] LABS: ALBUMIN 2.8 gm/dl (3.4-5.0); CALCIUM 8.3 mg/dl (8.5-10.1); CREATININE 3.17 mg/dl (0.60-1.40); POTASSIUM 4.3 mmol/L (3.5-5.1)
[2018-01-23 07:03] LABS: TOTAL PROTEIN 6.4 gm/dl (6.4-8.2)
[2018-01-23 07:16] VITALS: BP 142/83; PULSE 58; TEMP 36.2; O2SAT 98
[2018-01-23] MEDS: FERROUS SULFATE 325 MG TAB PO SCH (07:47)
[2018-01-23] MEDS: PIPERACILL/TAZOBAC IV 4.5 GM in D5W 100 ML IV SCH ×3 (07:47→23:29)
[2018-01-23] MEDS: FLUCONAZOLE 100 MG TAB PO SCH (07:47)
[2018-01-23] MEDS: SIMVASTATIN 20 MG TAB PO SCH (07:48)
[2018-01-23] MEDS: OXCARBAZEPINE 150 MG TAB PO SCH ×2 (07:48→21:17)
[2018-01-23] MEDS: FINASTERIDE 5 MG TAB PO SCH (07:48)
[2018-01-23] MEDS: TAMSULOSIN HCL 0.4 MG CAP PO SCH ×2 (07:48→21:17)
[2018-01-23] MEDS: INSULIN ASPART 100 UNITS/ML 3 ML PEN SC SCH ×4 (07:51→21:00)
--- NOTE | 2018-01-23 09:56 | Hospitalist Progress Note ---
Hospitalist Progress Note Date of Service January 23, 2018. (Chuyita Gayle ., PA-C) Subjective Pt evaluation today including: conversation w/ patient, conversation w/ family (daughter at bedside), physical exam, chart review, lab review, conversation w/ strategic planning consultant, review of inpatient medication list Pain: Myalgias PO Intake: Tolerating PO diet, improved appetite today Voiding: rucker catheter in place The patient is fatigued this morning, stating that he did not sleep well last night. He states that he is still short of breath, but this is improved today. Per nursing, the patient's appetite is much improved so far today and he ate 100% of breakfast. He does report some hemoptysis starting last night. The patient denies fevers, chills, sweats, chest pain, palpitations, claudication, wheezing, nausea, vomiting, abdominal pain, dysuria, hematuria, urinary retention, paralysis, weakness, numbness and tingling. Additional Comments: See HPI for pertinent positives and negatives. All other systems reviewed and negative. (Chuyita Gayle ., PA-C) Objective Vital Signs Date Time Temp Pulse Resp B/P (MAP) Pulse Ox O2 Delivery O2 Flow Rate FiO2 01/23/18 08:00 Nasal Cannula 2.0 01/23/18 07:16 36.2 58 18 142/83 (102) 98 Nasal Cannula 2.0 01/23/18 04:00 Nasal Cannula 2.0 CPAP 01/23/18 03:51 36.4 58 21 130/63 (85) 93 CPAP 2.0 01/22/18 23:59 Nasal Cannula 2.0 01/22/18 23:35 35.8 51 21 107/53 (71) 95 CPAP 01/22/18 20:00 Nasal Cannula 2.0 01/22/18 19:54 36.5 56 24 123/57 (79) 100 Nasal Cannula 2.0 01/22/18 16:00 Nasal Cannula 2.0 01/22/18 15:56 36.5 57 22 123/57 (79) 99 Nasal Cannula 2.0 01/22/18 13:56 36.5 55 22 117/61 (79) 97 Room Air 2.0 01/22/18 12:17 34.9 58 118/56 92 01/22/18 10:15 95 Room Air 01/22/18 09:51 34.0 54 22 123/61 95 Room Air (Chuyita Gayle ., PA-C) Physical Exam Notes: General appearance: +Morbidly obese. Well-developed, well-nourished, no apparent distress Head: Normocephalic, atraumatic Eyes: Normal inspection, PERRL, EOMI ENT: Normal ENT inspection, hearing grossly normal, pharynx normal Neck: Supple, no JVD, trachea midline Respiratory/Chest: +Decreased breath sounds, poor respiratory effort. Lungs clear to auscultation, normal breath sounds, no respiratory distress Cardiovascular: +Irregularly irregular, bradycardic. Systolic murmur. No gallop Abdomen/GI: Normal bowel sounds, non-tender, soft Extremities/Musculoskeletal: +Erythema of bilateral lower extremities and swelling at baseline per pt. 2+ pitting edema. No calf tenderness Neurological/Psych: Alert, normal mood/affect, oriented x 3 Skin: +Chronic lymphedema. Normal color, warm/dry, no rash (Chuyita Gayle ., PA-C) Laboratory Results Last 24 Hours Test 01/22/18 09:50 01/22/18 13:20 01/22/18 15:23 01/22/18 16:19 Urine Color YELLOW Urine Appearance TURBID Urine pH 5.0 Urine Specific [place] 1.018 Urine Protein TRACE Urine Glucose (UA) NEG Urine Ketones NEG Urine Occult Blood 3+ Urine Nitrite NEG Urine Bilirubin NEG Urine Urobilinogen NEG Urine Leukocyte Esterase MODERATE Urine WBC (Auto) 5-10 /hpf Urine RBC (Auto) 10-30 /hpf Urine Hyaline Casts (Auto) 1-5 /lpf Urine Epithelial Cells (Auto) 5-10 /lpf Urine Bacteria (Auto) NEG Urine Renal Epithelial Cells /lpf Urine Pathogenic Casts 0-3 GRANULAR CASTS /lpf Urine Yeast (Auto) BUDDING Bedside Glucose 76 mg/dl 75 mg/dl Sodium Level 140 mmol/L Potassium Level 4.4 mmol/L Chloride Level 109 mmol/L Carbon Dioxide Level 23 mmol/L Anion Gap 8.0 mmol/L Blood Urea Nitrogen 105 mg/dl Creatinine 3.11 mg/dl Est Creatinine Clear Calc Drug Dose 26.6 ml/min Estimated GFR () 20.5 Estimated GFR (Non- 17.7 BUN/Creatinine Ratio 33.9 Random Glucose 74 mg/dl Calcium Level 8.0 mg/dl Test 01/22/18 20:23 01/23/18 05:58 01/23/18 06:58 Bedside Glucose 89 mg/dl 84 mg/dl White Blood Count 4.83 K/uL Red Blood Count 3.07 M/uL Hemoglobin 10.0 g/dL Hematocrit 30.2 % Mean Corpuscular Volume 98.4 fL Mean Corpuscular Hemoglobin 32.6 pg Mean Corpuscular Hemoglobin Concent 33.1 g/dl RDW Standard Deviation 62.7 fL RDW Coefficient of Variation 17.5 % Platelet Count 85 K/uL Mean Platelet Volume 9.9 fL Nucleated RBC Absolute Count (auto) 0.03 K/uL Nucleated Red Blood Cells % 0.6 % Prothrombin Time 41.3 SECONDS Prothromb Time International Ratio 4.0 Sodium Level 142 mmol/L Potassium Level 4.3 mmol/L Chloride Level 109 mmol/L Carbon Dioxide Level 24 mmol/L Anion Gap 9.0 mmol/L Blood Urea Nitrogen 110 mg/dl Creatinine 3.17 mg/dl Est Creatinine Clear Calc Drug Dose 25.9 ml/min Estimated GFR () 20.0 Estimated GFR (Non- 17.3 BUN/Creatinine Ratio 34.6 Random Glucose 80 mg/dl Calcium Level 8.3 mg/dl Magnesium Level 3.1 mg/dl Total Bilirubin 1.0 mg/dl Direct Bilirubin 0.5 mg/dl Aspartate Amino Transf (AST/SGOT) 71 U/L Alanine Aminotransferase (ALT/SGPT) 41 U/L Alkaline Phosphatase 629 U/L Total Protein 6.4 gm/dl Albumin 2.8 gm/dl (Chuyita Gayle ., PA-C) Assessment and Plan 82 y/o male with a history of CAD, h/o [place] s/p CABG x 2 2007, HTN, HLD, chronic diastolic CHF, a-fib, COPD, DM II with neuropathy, hypothyroidism, JACEK, CKD stage III-IV, lymphedema, EVENS, and urinary retention who presented to the ED on 01/22 with weakness and increased shortness of breath x 1 week. Pt hypothermic on arrival with temperature of 34.0C rectally. Pt bradycardic but otherwise VSS. CXR shows mild pulmonary edema and trace effusions. EKG no ischemic changes. INR supratherapeutic at 6.2. Creatinine elevated above baseline at 3.10. Lactic acid WNL. LFTs elevated above baseline. Pt received vanc, Zosyn and IVF in ED. Possible sepsis, unknown source--stable -Admit to telemetry. No acute events overnight. Pt in a-fib with slow ventricular response, HR 40s-50s -Continue empiric vancomycin and Zosyn for now -1 of 2 blood cultures positive for GPC, likely contamination -Flu swab negative -UA positive for yeast, urine culture pending -Continue Diflucan 100 mg PO qd, day #2 -Will hold on further IVF for now due to possible fluid overload -Hypothermia resolved, temperature now normal/low normal Acute on chronic diastolic CHF -Mild edema on CXR, BNP elevated -Pt reports dry weight is 320 lb -Lasix 80 mg IV BID per nephro -Fluid restriction 1500 mL -Daily weights, monitor I's & O's CARLO on CKD stage III-IV--ongoing -Baseline creatinine 1.7-2.0 -Creatinine 3.117 on 01/23, stable from 3.11 -Hold Lasix for now -Consult nephrology, appreciate recs: Spoke with Dr. Saunders. Will start Lasix 80 mg IV BID. Fluid restrict to 1500 mL. May need to accept worsening renal function to achieve euvolemia. Check iron studies, PTH, phosphate CAD, h/o [place], CABG, HTN, HLD--stable -Continue Zocor 20 mg PO qd A-fib, supratherapeutic INR--improving -INR 4.0 on 01/23, down from 6.2 -Continue to hold warfarin today -Hemoptysis, otherwise no bleeding, Hgb stable COPD--no wheezing appreciated -Continue prn DuoNeb, albuterol inhaler DM II w/neuropathy--last HgbA1c 7.1 on 11/14/17 -Hold 70/30 -Insulin sliding scale -Check BSGs q ac and qhs -Continue Trileptal 150 mg PO qam and 300 mg PO hs Hypothyroidism -TSH 5.25, recheck in 4-6 weeks after acute illness resolved -Continue Synthroid 100 mcg PO qd JACEK--stable -Hgb roughly at baseline -Continue ferrous sulfate EVENS -Pt may use own CPAP w/2L NC at night Urinary retention -Continue Flomax BID and Rucker -Convert Avodart to Proscar 5 mg PO qd DVT prophylaxis -Hold chemical ppx due to supratherapeutic INR -SARBJIT hose and SCDs Code Status -Level I, FULL RESUSCITATION STATUS -Pt states he is unsure what he wants for code status, can address again later (Chuyita Gayle ., PAShimonC) Supervising Note Dr. Carrillo I performed a history and physical examination on the patient. I reviewed above note and agree with it. I discussed plan with APC and patient. During my face to face encounter with the patient, I answered all of the patient's questions. Will continue to monitor his vitals. Currently no longer is hypothermic. awaiting final blood culture results. Appears to be a contaminant. (Harvey Carrillo M.D.)
--- NOTE | 2018-01-23 10:04 | Nephrology Consultation ---
Nephrology Consultation Date & Providers Date of Consultation: January 23, 2018. Primary Care Provider: Winston Harper M.D. Referring Provider: Reason for Consultation Evaluation management for acute kidney injury and volume overload with history of chronic kidney disease. History of Present Illness Chad Avery is a 82-year-old gentlemen with past medical history significant for hypertension, diabetes, history of coronary artery disease, CHF, anemia and secondary hyperparathyroidism admit to the hospital with worsening shortness of breath and generalized weakness for a week. Nephrologic consult was requested to manage acute kidney injury. Electronic medical records including labs and imaging were reviewed in detail during patient's visit. Patient's daughter Monica was at bedside during the visit. Ernesto has stage 4 chronic kidney disease, his baseline creatinine has been quite variable around 2.0 with history of recurrent acute kidney injury in the setting of urinary retention and high dose of diuretics use. Has been off of FRANCY-inhibitor/ARB due to prior recurrent acute kidney injury. He has CHF with right-sided heart failure and pulmonary hypertension, he has been on Lasix 40 mg twice a day at home. He has history of BPH with recurrent urinary retention , currently has indwelling Mckeon catheter. Over last 1 week he was getting progressively short of breath and having generalized weakness to the point that he was not able to get off the bed. He was brought to the ED for further evaluation. Chest x-ray showed mild pulmonary vascular congestion and atelectasis. Lab showed creatinine 3.1, electrolyte acceptable. Blood pressure well control. INR was 4. He was hypothermic. UA showed fungal UTI and started on Diflucan. Blood culture is positive for gram-positive cocci with prior history of MRSA infection and currently on vancomycin and Zosyn empirically. Lasix has been on hold due to acute kidney injury. Denies any recent NSAID use. He was admitted to hospital in November with another episode of acute kidney injury when CT abdomen pelvis was negative for nephrolithiasis or hydronephrosis. Currently he is overall feeling the poorly, continues to have shortness of breath. Denies any chest pain. Denies fever or chills Allergies Coded Allergies: Amoxicillin (Unverified Allergy, Unknown, ., 01/22/18) CI Pigment Blue 63 (Unverified Allergy, Unknown, ., 01/22/18) Duloxetine (Unverified Allergy, Unknown, ., 01/22/18) Gabapentin (Unverified Allergy, Unknown, ., 01/22/18) Nitrofurantoin (Unverified Allergy, Unknown, ., 01/22/18) Pregabalin (Unverified Allergy, Unknown, ., 01/22/18) Chlorpheniramine (Verified Adverse Reaction, Intermediate, "CAUSE PROSTATE TO ENLARGE", 01/22/18) Linezolid (Verified Adverse Reaction, Intermediate, GI SYMPTOMS, 01/22/18) Concommitant GI bleed Phenylpropanolamine (Verified Adverse Reaction, Intermediate, "CAUSE PROSTATE TO ENLARGE"., 01/22/18) Inpatient Medications Current Inpatient Medications Medications (Trade) Dose Ordered Sig/Sukhwinder Route Start Time Stop Time Status Last Admin Dose Admin Acetaminophen (Tylenol Tab) 650 mg Q4H PRN PO 01/22/18 10:45 02/21/18 10:44 01/22/18 19:50 650 MG Al Hydrox/Mg Hydrox/Simethicone (Maalox Max Susp) 15 ml Q4H PRN PO 01/22/18 10:45 02/21/18 10:44 Magnesium Hydroxide (Milk Of Magnesia Susp) 30 ml Q12H PRN PO 01/22/18 10:45 02/21/18 10:44 Ondansetron HCl (Zofran Inj) 4 mg Q6H PRN IV 01/22/18 10:45 02/21/18 10:44 Polyethylene (Miralax Powder Packet) 17 gm DAILY PRN PO 01/22/18 10:45 02/21/18 10:44 Glucose (Glucose 40% Gel) 15-30 GRAMS 15 GRAMS... UD PRN PO 01/22/18 10:45 02/21/18 10:44 Glucose (Glucose Chew Tab) 4-8 Tablets 4 Tabl... UD PRN PO 01/22/18 10:45 02/21/18 10:44 Dextrose (Dextrose 50% 50ML Syringe) 25-50ML 25ML FOR ... UD PRN IV 01/22/18 10:45 02/21/18 10:44 Glucagon (Glucagon Inj) 1 mg UD PRN SQ 01/22/18 10:45 02/21/18 10:44 Carbohydrates (Carbohydrates For Hypoglycemia) 15-30 GRAMS 15 grams if BSG 54-69... UD PRN PO 01/22/18 10:45 6/7/18 10:44 Insulin Aspart (novoLOG ASPART) SLIDING SCALE G... ACHS SC 01/22/18 11:00 02/21/18 10:59 01/23/18 07:51 2 UNITS Albuterol (Ventolin Hfa Inhaler) 2 puffs Q4 PRN INH 01/22/18 10:45 02/21/18 10:44 Albuterol/ Ipratropium (Duoneb) 3 ml TID PRN INH 01/22/18 10:45 02/21/18 10:44 Levothyroxine Sodium (Synthroid Tab) 100 mcg DAILYBB PO 01/23/18 06:00 02/22/18 05:59 01/23/18 05:54 100 MCG Miconazole Nitrate (Desenex Powder) 1 appln DAILY PRN EXT 01/22/18 10:45 02/21/18 10:44 Oxcarbazepine (Trileptal Tab) 150 mg QAM PO 01/23/18 09:00 02/22/18 08:59 01/23/18 07:48 150 MG Oxcarbazepine (Trileptal Tab) 300 mg QPM PO 01/22/18 21:00 02/21/18 20:59 01/22/18 19:49 300 MG Simvastatin (Zocor Tab) 20 mg DAILY PO 01/23/18 09:00 02/22/18 08:59 01/23/18 07:48 20 MG Tamsulosin HCl (Flomax Cap) 0.4 mg BID PO 01/22/18 21:00 02/21/18 20:59 01/23/18 07:48 0.4 MG Finasteride (Proscar Tab) 5 mg QAM PO 01/23/18 09:00 02/22/18 08:59 01/23/18 07:48 5 MG Ferrous Sulfate (Feosol Tab) 325 mg QAM PO 01/23/18 09:00 02/22/18 08:59 01/23/18 07:47 325 MG Miscellaneous Information (Consult) 1 ea UD PRN N/A 01/22/18 10:45 02/21/18 10:44 Miscellaneous Information (Consult) 1 ea UD PRN N/A 01/22/18 10:45 02/21/18 10:44 Fluconazole (Diflucan Tab) 100 mg QAM PO 01/23/18 09:00 02/02/18 08:59 01/23/18 07:47 100 MG Piperacillin Sod/ Tazobactam Sod 4.5 gm/Dextrose 120 ml @ 30 mls/hr Q8H IV 01/23/18 00:00 01/25/18 00:00 01/23/18 07:47 30 MLS/HR Family History FH: diabetes mellitus FH: hypertension Myocardial infarction No family history of chronic kidney disease or end-stage renal disease. Social History Smoking Status: Never Smoker Smokeless Tobacco Use: No Alcohol Use: none Drug Use: none Marital Status: Housing Status: lives with significant other Occupation: retired Review of Systems A complete review of systems was performed. Pertinent positives are noted above. All other systems are negative. Physical Exam Date Time Temp Pulse Resp B/P (MAP) Pulse Ox O2 Delivery O2 Flow Rate FiO2 01/23/18 07:16 36.2 58 18 142/83 (102) 98 Nasal Cannula 2.0 01/23/18 04:00 Nasal Cannula 2.0 CPAP 01/23/18 03:51 36.4 58 21 130/63 (85) 93 CPAP 2.0 01/22/18 23:59 Nasal Cannula 2.0 01/22/18 23:35 35.8 51 21 107/53 (71) 95 CPAP 01/22/18 20:00 Nasal Cannula 2.0 01/22/18 19:54 36.5 56 24 123/57 (79) 100 Nasal Cannula 2.0 01/22/18 16:00 Nasal Cannula 2.0 01/22/18 15:56 36.5 57 22 123/57 (79) 99 Nasal Cannula 2.0 01/22/18 13:56 36.5 55 22 117/61 (79) 97 Room Air 2.0 01/22/18 12:17 34.9 58 118/56 92 01/22/18 10:15 95 Room Air 01/22/18 09:51 34.0 54 22 123/61 95 Room Air GENERAL: Elderly male, AAA x 3, pleasant, ill-appearing, in mild respiratory distress. HEENT: Atraumatic, normocephalic. NECK: Supple ENT: No sinus tenderness MOUTH and THROAT: Moist oral mucosa, no oral ulcer or pharyngeal erythema RESPIRATORY: Occasional wheezes and crackles at the bases CARDIOVASCULAR: S1, S2 normal, rate control, irregular rhythm. The ABDOMEN: Obese, Soft, nontender, positive bowel sound. MUSCULOSKELETAL: No CVA tenderness. No joint swelling, erythema or tenderness. Normal range of motion. SKIN: No skin rash EXTREMITY: 2+ bilateral lower extremity edema with mild erythema NEURO: No gross focal neurological deficit, speech fluent. PSYCHIATRY: Normal mood and judgment Laboratory Results Last 24 Hours Test 01/22/18 09:20 01/22/18 09:50 01/22/18 13:20 01/22/18 15:23 Influenza Type A Antigen Neg for Influ A Influenza Type B Antigen Neg for Influ B Urine Color YELLOW Urine Appearance TURBID Urine pH 5.0 Urine Specific [place] 1.018 Urine Protein TRACE Urine Glucose (UA) NEG Urine Ketones NEG Urine Occult Blood 3+ Urine Nitrite NEG Urine Bilirubin NEG Urine Urobilinogen NEG Urine Leukocyte Esterase MODERATE Urine WBC (Auto) 5-10 /hpf Urine RBC (Auto) 10-30 /hpf Urine Hyaline Casts (Auto) 1-5 /lpf Urine Epithelial Cells (Auto) 5-10 /lpf Urine Bacteria (Auto) NEG Urine Renal Epithelial Cells /lpf Urine Pathogenic Casts 0-3 GRANULAR CASTS /lpf Urine Yeast (Auto) BUDDING Bedside Glucose 76 mg/dl Sodium Level 140 mmol/L Potassium Level 4.4 mmol/L Chloride Level 109 mmol/L Carbon Dioxide Level 23 mmol/L Anion Gap 8.0 mmol/L Blood Urea Nitrogen 105 mg/dl Creatinine 3.11 mg/dl Est Creatinine Clear Calc Drug Dose 26.6 ml/min Estimated GFR () 20.5 Estimated GFR (Non- 17.7 BUN/Creatinine Ratio 33.9 Random Glucose 74 mg/dl Calcium Level 8.0 mg/dl Test 01/22/18 16:19 01/22/18 20:23 01/23/18 05:58 01/23/18 06:58 Bedside Glucose 75 mg/dl 89 mg/dl 84 mg/dl White Blood Count 4.83 K/uL Red Blood Count 3.07 M/uL Hemoglobin 10.0 g/dL Hematocrit 30.2 % Mean Corpuscular Volume 98.4 fL Mean Corpuscular Hemoglobin 32.6 pg Mean Corpuscular Hemoglobin Concent 33.1 g/dl RDW Standard Deviation 62.7 fL RDW Coefficient of Variation 17.5 % Platelet Count 85 K/uL Mean Platelet Volume 9.9 fL Nucleated RBC Absolute Count (auto) 0.03 K/uL Nucleated Red Blood Cells % 0.6 % Prothrombin Time 41.3 SECONDS Prothromb Time International Ratio 4.0 Sodium Level 142 mmol/L Potassium Level 4.3 mmol/L Chloride Level 109 mmol/L Carbon Dioxide Level 24 mmol/L Anion Gap 9.0 mmol/L Blood Urea Nitrogen 110 mg/dl Creatinine 3.17 mg/dl Est Creatinine Clear Calc Drug Dose 25.9 ml/min Estimated GFR () 20.0 Estimated GFR (Non- 17.3 BUN/Creatinine Ratio 34.6 Random Glucose 80 mg/dl Calcium Level 8.3 mg/dl Magnesium Level 3.1 mg/dl Total Bilirubin 1.0 mg/dl Direct Bilirubin 0.5 mg/dl Aspartate Amino Transf (AST/SGOT) 71 U/L Alanine Aminotransferase (ALT/SGPT) 41 U/L Alkaline Phosphatase 629 U/L Total Protein 6.4 gm/dl Albumin 2.8 gm/dl Impression (1) Acute kidney injury (2) Chronic kidney disease (3) Weakness (4) Anemia (5) BPH (benign prostatic hyperplasia) (6) CHF (congestive heart failure) (7) Hypertension (8) Secondary hyperparathyroidism of renal origin Ernesto is a 82-year-old gentlemen with past medical history significant for stage 3 chronic kidney disease ( B/L cr 1.5-2.0 0 with history of recurrent acute kidney injury , CHF with right-sided heart failure and pulmonary hypertension requiring high dose of diuretics at this baseline, COPD, a recent history of osteomyelitis some of lower extremity, admitted to the hospital with worsening shortness of breath and generalized weakness for a week. Found to have fungal UTI, bacteremia as well as volume overload with CHF exacerbation. Recommendations -- start on Lasix 80 milligram IV twice a day, aim for net negative more than a liter per 24 hours -- restrict free water to less than 1500 mL per day, low-salt diet. --continue to monitor renal function and urine output, considering patient's multiple significant comorbidities including right-sided heart failure and pulmonary hypertension and history of recurrent acute kidney injury, he is at high risk for further worsening of renal function. Would continue on diuretics to optimize volume status. Discussed with patient and his daughter that in order to achieve euvolemia we may have to accept azotemia and worsening of renal function. In worse case scenario we may need to consider renal replacement therapy if volume status does not improve with diuretics and/or worsening renal function or electrolyte abnormality. --dose medications for GFR less than 30 --check iron study, PTH and phosphate the Thank you for allowing me to participate in your patient's care. It was a pleasure to see Ernesto
[2018-01-23 11:40] LABS: PHOSPHORUS 6.4 mg/dl (2.5-4.9)
[2018-01-23] MEDS: FUROSEMIDE INJ 80 MG in SYRINGE 0 ML IV SCH ×2 (13:54→21:17)
[2018-01-23] MEDS ORDERED: VANCOMYCIN IV 1,500 MG in SODIUM CHLORIDE 0.9% 500ML 500 ML IV ONE (16:30)
[2018-01-23 16:36] VITALS: BP 121/70; PULSE 54; TEMP 36.6; O2SAT 99
[2018-01-23 19:51] VITALS: BP 117/90; PULSE 52; TEMP 36.6; O2SAT 99
[2018-01-23 23:35] VITALS: BP 131/56; PULSE 47; TEMP 34.7; TEMP 35.7; O2SAT 94
[2018-01-24] VITALS (7 sets, daily range): BP systolic 104–153; BP diastolic 55–62; PULSE 47–62; TEMP 35.8–36.4; O2SAT 93–100
[2018-01-24] MEDS: LEVOTHYROXINE 100 MCG TAB PO SCH (05:47)
[2018-01-24 06:02] LABS: HEMATOCRIT 29.9 % (42-52); HEMOGLOBIN 9.9 g/dL (14.0-18.0); MEAN CORPUSCULAR HEMOGLOBIN 33.1 pg (25-34); MEAN CORPUSCULAR HGB CONC 33.1 g/dl (32-36); RED CELL DISTRIBUTION WIDTH CV 17.6 % (11.5-14.5); RED CELL DISTRIBUTION WIDTH SD 63.9 fL (36.4-46.3); WHITE BLOOD COUNT 4.98 K/uL (4.8-10.8)
[2018-01-24 06:06] LABS: MEAN PLATELET VOLUME 9.9 fL (7.4-10.4); PLATELET COUNT 75 K/uL (130-400)
[2018-01-24 06:12] LABS: INR 2.5 (0.9-1.1)
[2018-01-24 06:28] LABS: ALBUMIN 2.7 gm/dl (3.4-5.0); CALCIUM 7.8 mg/dl (8.5-10.1); CREATININE 3.18 mg/dl (0.60-1.40); POTASSIUM 4.1 mmol/L (3.5-5.1)
[2018-01-24 06:31] LABS: TOTAL PROTEIN 6.5 gm/dl (6.4-8.2)
[2018-01-24] MEDS: ACETAMINOPHEN 325 MG TAB PO PRN ×2 (06:41→11:23)
[2018-01-24] MEDS: FUROSEMIDE INJ 80 MG in SYRINGE 0 ML IV SCH ×2 (08:19→22:05)
[2018-01-24] MEDS: SIMVASTATIN 20 MG TAB PO SCH (08:20)
[2018-01-24] MEDS: FERROUS SULFATE 325 MG TAB PO SCH (08:20)
[2018-01-24] MEDS: TAMSULOSIN HCL 0.4 MG CAP PO SCH ×2 (08:20→22:05)
[2018-01-24] MEDS: OXCARBAZEPINE 150 MG TAB PO SCH ×2 (08:20→22:05)
[2018-01-24] MEDS: FINASTERIDE 5 MG TAB PO SCH (08:20)
[2018-01-24] MEDS: FLUCONAZOLE 100 MG TAB PO SCH (08:21)
[2018-01-24] MEDS: INSULIN ASPART 100 UNITS/ML 3 ML PEN SC SCH ×4 (08:23→21:00)
[2018-01-24] MEDS: PIPERACILL/TAZOBAC IV 4.5 GM in D5W 100 ML IV SCH (08:25)
--- NOTE | 2018-01-24 09:16 | Nephrology Progress Note ---
Nephrology Progress Note Date of Service January 24, 2018. Chief Complaint F/U for acute kidney injury and volume overload with history of chronic kidney disease. Subjective Ernesto was seen and examined in his room this morning. Still has some shortness of breath but overall slightly improved. Urine output improved with net negative more than 1 liter, BUN creatinine still elevated, electrolyte acceptable. Blood pressure stable. Review of Systems A complete review of systems was performed. Pertinent positives are noted above. All other systems are negative. Vital Signs Last 8 Hrs Date Time Temp Pulse Resp B/P (MAP) Pulse Ox O2 Delivery O2 Flow Rate FiO2 01/24/18 07:29 36.4 55 18 117/57 (77) 97 01/24/18 04:00 Nasal Cannula 2.0 01/24/18 03:11 36.4 01/24/18 03:10 36.0 62 21 131/60 (83) 95 2.0 01/23/18 23:59 CPAP 2.0 Last Recorded Weight Weight (Kilograms): 151.400 Physical Exam GENERAL: Elderly male , AAA x 3, pleasant, ill-appearing, not in any distress. NECK: Supple, no JVD. RESPIRATORY: Crackles bilaterally at bases. CARDIOVASCULAR: S1, S2 normal, rate rhythm regular. EXTREMITY: 1+ bilateral lower extremity edema and thickening of skin NEURO: speech fluent. PSYCHIATRY: Normal mood and judgment Family History FH: diabetes mellitus FH: hypertension Myocardial infarction No family history of chronic kidney disease or end-stage renal disease. 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 Laboratory Results Past 24 Hours 01/24/18 05:15 01/24/18 05:15 Test 01/23/18 10:59 01/23/18 11:35 01/23/18 15:10 01/23/18 16:26 Phosphorus Level 6.4 mg/dl (2.5-4.9) Iron Level 187 mcg/dl (35-175) Total Iron Binding Capacity 264 mcg/dl (250-450) Transferrin 195 mg/dl (200-360) Transferrin % Saturation 68 % (20-50) Ferritin 60.5 ng/ml (8.0-388.0) Parathyroid Hormone (Intact) 178.0 pg/mL (18.4-80.1) Bedside Glucose 92 mg/dl (70-99) 92 mg/dl (70-99) Random Vancomycin Level 15.7 mcg/ml Test 01/23/18 20:47 01/24/18 05:15 01/24/18 07:19 Bedside Glucose 102 mg/dl (70-99) 96 mg/dl (70-99) Red Blood Count 2.99 M/uL (4.7-6.1) Mean Corpuscular Volume 100.0 fL (80-100) Mean Corpuscular Hemoglobin 33.1 pg (25-34) Mean Corpuscular Hemoglobin Concent 33.1 g/dl (32-36) RDW Standard Deviation 63.9 fL (36.4-46.3) RDW Coefficient of Variation 17.6 % (11.5-14.5) Mean Platelet Volume 9.9 fL (7.4-10.4) Prothrombin Time 26.1 SECONDS (9.0-12.0) Prothromb Time International Ratio 2.5 (0.9-1.1) Anion Gap 11.0 mmol/L (3-11) Est Creatinine Clear Calc Drug Dose 25.9 ml/min Estimated GFR () 20.0 Estimated GFR (Non- 17.2 BUN/Creatinine Ratio 34.3 (10-20) Calcium Level 7.8 mg/dl (8.5-10.1) Magnesium Level 3.0 mg/dl (1.8-2.4) Total Bilirubin 1.0 mg/dl (0.2-1) Direct Bilirubin 0.5 mg/dl (0-0.2) Aspartate Amino Transf (AST/SGOT) 66 U/L (15-37) Alanine Aminotransferase (ALT/SGPT) 36 U/L (12-78) Alkaline Phosphatase 589 U/L (45-117) Total Protein 6.5 gm/dl (6.4-8.2) Albumin 2.7 gm/dl (3.4-5.0) Random Vancomycin Level 23.2 mcg/ml Allergies Coded Allergies: Amoxicillin (Unverified Allergy, Unknown, ., 01/22/18) CI Pigment Blue 63 (Unverified Allergy, Unknown, ., 01/22/18) Duloxetine (Unverified Allergy, Unknown, ., 01/22/18) Gabapentin (Unverified Allergy, Unknown, ., 01/22/18) Nitrofurantoin (Unverified Allergy, Unknown, ., 01/22/18) Pregabalin (Unverified Allergy, Unknown, ., 01/22/18) Chlorpheniramine (Verified Adverse Reaction, Intermediate, "CAUSE PROSTATE TO ENLARGE", 01/22/18) Linezolid (Verified Adverse Reaction, Intermediate, GI SYMPTOMS, 01/22/18) Concommitant GI bleed Phenylpropanolamine (Verified Adverse Reaction, Intermediate, "CAUSE PROSTATE TO ENLARGE"., 01/22/18) Medications Current Inpatient Medications Medications (Trade) Dose Ordered Sig/Sukhwinder Route Start Time Stop Time Status Last Admin Dose Admin Acetaminophen (Tylenol Tab) 650 mg Q4H PRN PO 01/22/18 10:45 02/21/18 10:44 01/24/18 06:41 650 MG Al Hydrox/Mg Hydrox/Simethicone (Maalox Max Susp) 15 ml Q4H PRN PO 01/22/18 10:45 02/21/18 10:44 Magnesium Hydroxide (Milk Of Magnesia Susp) 30 ml Q12H PRN PO 01/22/18 10:45 02/21/18 10:44 Ondansetron HCl (Zofran Inj) 4 mg Q6H PRN IV 01/22/18 10:45 02/21/18 10:44 Polyethylene (Miralax Powder Packet) 17 gm DAILY PRN PO 01/22/18 10:45 02/21/18 10:44 Glucose (Glucose 40% Gel) 15-30 GRAMS 15 GRAMS... UD PRN PO 01/22/18 10:45 02/21/18 10:44 Glucose (Glucose Chew Tab) 4-8 Tablets 4 Tabl... UD PRN PO 01/22/18 10:45 02/21/18 10:44 Dextrose (Dextrose 50% 50ML Syringe) 25-50ML 25ML FOR ... UD PRN IV 01/22/18 10:45 02/21/18 10:44 Glucagon (Glucagon Inj) 1 mg UD PRN SQ 01/22/18 10:45 02/21/18 10:44 Carbohydrates (Carbohydrates For Hypoglycemia) 15-30 GRAMS 15 grams if BSG 54-69... UD PRN PO 01/22/18 10:45 02/21/18 10:44 Insulin Aspart (novoLOG ASPART) SLIDING SCALE G... ACHS SC 01/22/18 11:00 02/21/18 10:59 01/23/18 07:51 2 UNITS Albuterol (Ventolin Hfa Inhaler) 2 puffs Q4 PRN INH 01/22/18 10:45 02/21/18 10:44 Albuterol/ Ipratropium (Duoneb) 3 ml TID PRN INH 01/22/18 10:45 02/21/18 10:44 Levothyroxine Sodium (Synthroid Tab) 100 mcg DAILYBB PO 01/23/18 06:00 02/22/18 05:59 01/24/18 05:47 100 MCG Miconazole Nitrate (Desenex Powder) 1 appln DAILY PRN EXT 01/22/18 10:45 02/21/18 10:44 Oxcarbazepine (Trileptal Tab) 150 mg QAM PO 01/23/18 09:00 02/22/18 08:59 01/23/18 07:48 150 MG Oxcarbazepine (Trileptal Tab) 300 mg QPM PO 01/22/18 21:00 02/21/18 20:59 01/23/18 21:17 300 MG Simvastatin (Zocor Tab) 20 mg DAILY PO 01/23/18 09:00 02/22/18 08:59 01/23/18 07:48 20 MG Tamsulosin HCl (Flomax Cap) 0.4 mg BID PO 01/22/18 21:00 02/21/18 20:59 01/23/18 21:17 0.4 MG Finasteride (Proscar Tab) 5 mg QAM PO 01/23/18 09:00 02/22/18 08:59 01/23/18 07:48 5 MG Ferrous Sulfate (Feosol Tab) 325 mg QAM PO 01/23/18 09:00 02/22/18 08:59 01/23/18 07:47 325 MG Miscellaneous Information (Consult) 1 ea UD PRN N/A 01/22/18 10:45 02/21/18 10:44 Miscellaneous Information (Consult) 1 ea UD PRN N/A 01/22/18 10:45 02/21/18 10:44 Fluconazole (Diflucan Tab) 100 mg QAM PO 01/23/18 09:00 02/02/18 08:59 01/23/18 07:47 100 MG Piperacillin Sod/ Tazobactam Sod 4.5 gm/Dextrose 120 ml @ 30 mls/hr Q8H IV 01/23/18 00:00 01/25/18 00:00 01/23/18 23:29 30 MLS/HR Furosemide 80 mg/ Syringe 8 ml @ 4 mls/min BID IV 01/23/18 13:00 02/22/18 12:59 01/23/18 21:17 4 MLS/MIN Impression (1) Acute kidney injury (2) Chronic kidney disease (3) Weakness (4) Anemia (5) BPH (benign prostatic hyperplasia) (6) CHF (congestive heart failure) (7) Hypertension (8) Secondary hyperparathyroidism of renal origin Ernesto is a 82-year-old gentlemen with past medical history significant for stage 3 chronic kidney disease ( B/L cr 1.5-2.0 0 with history of recurrent acute kidney injury , CHF with right-sided heart failure and pulmonary hypertension requiring high dose of diuretics at this baseline, COPD, a recent history of osteomyelitis some of lower extremity, admitted to the hospital with worsening shortness of breath and generalized weakness for a week. Found to have fungal UTI, bacteremia as well as volume overload with CHF exacerbation. Recommendations -- continue on Lasix 80 milligram IV twice a day, aim for net negative more than a liter per 24 hours -- restrict free water to less than 1500 mL per day, low-salt diet. --Epogen 82954 units x1 dose, calcitriol 0.25 micrograms 3 times a week --continue to monitor renal function and urine output, BUN and creatinine remained significantly elevated, continue on diuretics to optimize volume status, may have to accept azotemia and worsening of renal function. In worse case scenario we may need to consider renal replacement therapy if volume status does not improve with diuretics and/or worsening renal function or electrolyte abnormality. --dose medications for GFR less than 30 Will follow
--- NOTE | 2018-01-24 09:41 | Hospitalist Progress Note ---
Hospitalist Progress Note Date of Service January 24, 2018. (Chuyita Gayle ., PA-C) Subjective Pt evaluation today including: conversation w/ patient, physical exam, chart review, lab review, review of inpatient medication list Pain: None PO Intake: Tolerating PO diet Voiding: rucker catheter in place The patient reports feeling well, states that things are "coming along." He continues to feel short of breath but states that this is improving. He complains of a productive cough today but states the sputum is now clear and he denies any more hemoptysis. He states that he still feels weak and fatigued. He states his appetite is still less than normal. The patient denies fevers, chills, sweats, chest pain, palpitations, claudication, wheezing, nausea, vomiting, abdominal pain, dysuria, hematuria, urinary retention, paralysis, weakness, numbness and tingling. Additional Comments: See HPI for pertinent positives and negatives. All other systems reviewed and negative. (Chuyita Gayle ., PA-C) Objective Vital Signs Date Time Temp Pulse Resp B/P (MAP) Pulse Ox O2 Delivery O2 Flow Rate FiO2 01/24/18 07:29 36.4 55 18 117/57 (77) 97 01/24/18 04:00 Nasal Cannula 2.0 01/24/18 03:11 36.4 01/24/18 03:10 36.0 62 21 131/60 (83) 95 2.0 01/23/18 23:59 CPAP 2.0 01/23/18 23:35 35.7 01/23/18 23:35 34.7 47 15 131/56 (81) 94 CPAP 2.0 01/23/18 20:00 Nasal Cannula 2.0 01/23/18 19:51 36.6 52 16 117/90 (99) 99 Nasal Cannula 2.0 01/23/18 16:36 36.6 54 18 121/70 (87) 99 Nasal Cannula 2.0 01/23/18 16:00 Nasal Cannula 2.0 01/23/18 12:00 Nasal Cannula 2.0 (Chuyita Gayle ., PA-C) Physical Exam Notes: General appearance: +Morbidly obese. Well-developed, well-nourished, no apparent distress Head: Normocephalic, atraumatic Eyes: Normal inspection, PERRL, EOMI ENT: Normal ENT inspection, hearing grossly normal, pharynx normal Neck: Supple, no JVD, trachea midline Respiratory/Chest: +Decreased breath sounds, poor respiratory effort. Lungs clear to auscultation, normal breath sounds, no respiratory distress Cardiovascular: +Irregularly irregular, bradycardic. Systolic murmur. No gallop Abdomen/GI: Normal bowel sounds, non-tender, soft Extremities/Musculoskeletal: +Erythema of bilateral lower extremities and swelling. 2+ pitting edema. No calf tenderness Neurological/Psych: Alert, normal mood/affect, oriented x 3 Skin: +Chronic lymphedema. Normal color, warm/dry, no rash (Chuyita Gayle ., KYLEE) Laboratory Results Last 24 Hours Test 01/23/18 10:59 01/23/18 11:35 01/23/18 15:10 01/23/18 16:26 Phosphorus Level 6.4 mg/dl Iron Level 187 mcg/dl Total Iron Binding Capacity 264 mcg/dl Transferrin 195 mg/dl Transferrin % Saturation 68 % Ferritin 60.5 ng/ml Parathyroid Hormone (Intact) 178.0 pg/mL Bedside Glucose 92 mg/dl 92 mg/dl Random Vancomycin Level 15.7 mcg/ml Test 01/23/18 20:47 01/24/18 05:15 01/24/18 07:19 Bedside Glucose 102 mg/dl 96 mg/dl White Blood Count 4.98 K/uL Red Blood Count 2.99 M/uL Hemoglobin 9.9 g/dL Hematocrit 29.9 % Mean Corpuscular Volume 100.0 fL Mean Corpuscular Hemoglobin 33.1 pg Mean Corpuscular Hemoglobin Concent 33.1 g/dl RDW Standard Deviation 63.9 fL RDW Coefficient of Variation 17.6 % Platelet Count 75 K/uL Mean Platelet Volume 9.9 fL Prothrombin Time 26.1 SECONDS Prothromb Time International Ratio 2.5 Sodium Level 143 mmol/L Potassium Level 4.1 mmol/L Chloride Level 109 mmol/L Carbon Dioxide Level 23 mmol/L Anion Gap 11.0 mmol/L Blood Urea Nitrogen 109 mg/dl Creatinine 3.18 mg/dl Est Creatinine Clear Calc Drug Dose 25.9 ml/min Estimated GFR () 20.0 Estimated GFR (Non- 17.2 BUN/Creatinine Ratio 34.3 Random Glucose 85 mg/dl Calcium Level 7.8 mg/dl Magnesium Level 3.0 mg/dl Total Bilirubin 1.0 mg/dl Direct Bilirubin 0.5 mg/dl Aspartate Amino Transf (AST/SGOT) 66 U/L Alanine Aminotransferase (ALT/SGPT) 36 U/L Alkaline Phosphatase 589 U/L Total Protein 6.5 gm/dl Albumin 2.7 gm/dl Random Vancomycin Level 23.2 mcg/ml (Chuyita Gayle ., KYLEE) Assessment and Plan 82 y/o male with a history of CAD, h/o SD s/p CABG x 2 2007, HTN, HLD, chronic diastolic CHF, a-fib, COPD, DM II with neuropathy, hypothyroidism, JACEK, CKD stage III-IV, lymphedema, EVENS, and urinary retention who presented to the ED on 01/22 with weakness and increased shortness of breath x 1 week. Pt hypothermic on arrival with temperature of 34.0C rectally. Pt bradycardic but otherwise VSS. CXR shows mild pulmonary edema and trace effusions. EKG no ischemic changes. INR supratherapeutic at 6.2. Creatinine elevated above baseline at 3.10. Lactic acid WNL. LFTs elevated above baseline. Pt received vanc, Zosyn and IVF in ED. Possible sepsis, found with UTI likely related to chronic Rucker--stable -Admit to telemetry. No acute events overnight. Pt in a-fib, HR 50s-70s -Pt has not had any further specific s/s of infection. Will d/c empiric vanc and Zosyn and monitor response off abx -1 of 2 blood cultures positive for staph species, likely contamination -Flu swab negative -UA positive for yeast, urine culture pending -Continue Diflucan 100 mg PO qd, day #3 -Will hold on further IVF for now due to possible fluid overload Acute on chronic diastolic CHF--improving -Mild edema on CXR, BNP elevated -Pt reports dry weight is 320 lb -Continue Lasix 80 mg IV BID -Fluid restriction 1500 mL -Daily weights, monitor I's & O's -UO 1550 cc, net balance -1130 cc 01/23 CARLO on CKD stage III-IV--ongoing -Baseline creatinine 1.7-2.0 -Creatinine 3.18 on 01/24, stable from 3.17 -Consult nephrology, appreciate recs: Continue Lasix with aim of negative balance 1L per day. Will give Epogen 02816 x 1, calcitriol 0.25 mcg 3x/week. CAD, h/o SD, CABG, HTN, HLD--stable -Continue Zocor 20 mg PO qd A-fib, supratherapeutic INR--resolving -INR 2.5 on 01/24, down from 4.0. Hemoptysis resolved -Restart warfarin 5 mg PO ////, 2.5 mg PO / COPD--no wheezing appreciated -Continue prn DuoNeb, albuterol inhaler DM II w/neuropathy--last HgbA1c 7.1 on 11/14/17 -Hold 70/30 -Insulin sliding scale -Check BSGs q ac and qhs -Continue Trileptal 150 mg PO qam and 300 mg PO hs Hypothyroidism -TSH 5.25, recheck in 4-6 weeks after acute illness resolved -Continue Synthroid 100 mcg PO qd JACEK--stable -Hgb 9.6 on 01/24 -Continue ferrous sulfate -Iron and transferrin low, TIBC WNL -Epogen x 1 as above EVENS -Pt may use own CPAP w/2L NC at night Urinary retention -Continue Flomax BID and Rucker -Convert Avodart to Proscar 5 mg PO qd DVT prophylaxis -Hold chemical ppx due to supratherapeutic INR -SARBJIT hose and SCDs Code Status -Level I, FULL RESUSCITATION STATUS -Pt states he is unsure what he wants for code status, can address again later (Chuyita Gayle ., PA-C) Supervising Note Dr. Carrillo I performed a history and physical examination on the patient. I reviewed above note and agree with it. I discussed plan with APC and patient. During my face to face encounter with the patient, I answered all of the patient's questions. Will have patient off antibiotics and will monitor response. No source of INFECTIOUS SOURCE. Unsure as to why patient is hypothermic. (Harvey Carrillo M.D.)
[2018-01-24] MEDS ORDERED: WARFARIN SOD 5 MG TAB PO SCH (09:45)
[2018-01-24] MEDS ORDERED: EPOETIN ALFA 20,000 UNITS/ML VIAL SQ ONE (10:00)
[2018-01-24] MEDS: CALCITRIOL 0.25 MCG CAP PO SCH (10:25)
--- NOTE | 2018-01-24 12:18 | Clinical Documentation Query ---
CLINICAL DOCUMENTATION QUERY Ms. MCLAIN, In your clinical opinion is this patient being managed for: (x ) UTI due to chronic rucker catheter ( ) Not Agree ( ) Other explanation of clinical findings (Please Explain; If no explanation given, this is considered a no response.) ( ) Unable to determine ( ) Need to Discuss (Please call CDS via extension or [email or web address]. If no interaction occurs, this is considered a no response.) The medical record reflects the following clinical findings, treatment, and risk factors. Clinical Indicators: 82 yo male presenting with acute diastolic CHF, possible sepsis. UA cx prelim with yeast/not Yolanda Albicans Treatment: po diflucan, IV fluids Risk Factors: chronic rucker, DM, COPD, CKD, urinary retention Please clarify and document your clinical opinion in the progress notes and discharge summary. Terms such as "probable", "suspected", "likely", "questionable", "possible", or "still to be ruled out" are acceptable. IF IN AGREEMENT, YOU MUST DOCUMENT ABOVE DIAGNOSTIC STATEMENT IN DAILY PROGRESS NOTES AND DISCHARGE SUMMARY. This document is not part of the patient's record. Thank You, Alessandra Pink RN [phone]
[2018-01-24] MEDS: WARFARIN SOD 5 MG TAB PO SCH (16:45)
[2018-01-25 04:22] VITALS: BP 121/60; PULSE 62; TEMP 36.4; O2SAT 97
[2018-01-25 06:02] LABS: HEMATOCRIT 30.2 % (42-52); HEMOGLOBIN 9.8 g/dL (14.0-18.0); MEAN CELL VOLUME 100.3 fL (80-100); MEAN CORPUSCULAR HEMOGLOBIN 32.6 pg (25-34); MEAN CORPUSCULAR HGB CONC 32.5 g/dl (32-36); RED CELL DISTRIBUTION WIDTH CV 17.6 % (11.5-14.5); WHITE BLOOD COUNT 5.18 K/uL (4.8-10.8)
[2018-01-25] MEDS: LEVOTHYROXINE 100 MCG TAB PO SCH (06:08)
[2018-01-25 06:09] LABS: INR 2.5 (0.9-1.1)
[2018-01-25 06:37] LABS: MEAN PLATELET VOLUME 8.9 fL (7.4-10.4); PLATELET COUNT 76 K/uL (130-400)
[2018-01-25 06:38] LABS: ALBUMIN 2.7 gm/dl (3.4-5.0); CALCIUM 7.8 mg/dl (8.5-10.1); CREATININE 3.31 mg/dl (0.60-1.40); POTASSIUM 3.8 mmol/L (3.5-5.1)
[2018-01-25 06:40] LABS: TOTAL PROTEIN 6.4 gm/dl (6.4-8.2)
[2018-01-25 07:03] VITALS: BP 140/54; PULSE 62; TEMP 36.3; O2SAT 98
[2018-01-25] MEDS: INSULIN ASPART 100 UNITS/ML 3 ML PEN SC SCH ×4 (07:39→21:00)
[2018-01-25] MEDS: FUROSEMIDE INJ 80 MG in SYRINGE 0 ML IV SCH ×2 (07:54→21:01)
[2018-01-25] MEDS: TAMSULOSIN HCL 0.4 MG CAP PO SCH ×2 (07:55→21:01)
[2018-01-25] MEDS: FERROUS SULFATE 325 MG TAB PO SCH (07:55)
[2018-01-25] MEDS: FINASTERIDE 5 MG TAB PO SCH (07:56)
[2018-01-25] MEDS: OXCARBAZEPINE 150 MG TAB PO SCH ×2 (07:56→21:01)
[2018-01-25] MEDS: FLUCONAZOLE 100 MG TAB PO SCH (07:57)
[2018-01-25] MEDS: SIMVASTATIN 20 MG TAB PO SCH (07:57)
--- NOTE | 2018-01-25 09:14 | Nephrology Progress Note ---
Nephrology Progress Note Date of Service January 25, 2018. Chief Complaint F/U for acute kidney injury and volume overload with history of chronic kidney disease. Subjective Ernesto was seen and examined in his room this morning. Still has some shortness of breath but overall feeling about the same. Urine output improved, remain net negative more than 1 liter, however still volume overloaded, BUN/creatinine still significantly elevated, electrolyte acceptable. Blood pressure stable Review of Systems A complete review of systems was performed. Pertinent positives are noted above. All other systems are negative. Vital Signs Last 8 Hrs Date Time Temp Pulse Resp B/P (MAP) Pulse Ox O2 Delivery O2 Flow Rate FiO2 01/25/18 07:03 36.3 62 17 140/54 (82) 98 Nasal Cannula 3.0 Humidified Oxygen 01/25/18 04:22 36.4 62 15 121/60 (80) 97 Nasal Cannula 3.0 Humidified Oxygen 01/25/18 04:00 Nasal Cannula 2.0 01/24/18 23:59 Nasal Cannula 2.0 Last Recorded Weight Weight (Kilograms): 149.500 Physical Exam GENERAL: Elderly male , AAA x 3, pleasant, ill-appearing, not in any distress. NECK: Supple, no JVD. RESPIRATORY: Crackles bilaterally at bases. CARDIOVASCULAR: S1, S2 normal, rate rhythm regular. EXTREMITY: 2+ bilateral lower extremity edema and thickening of skin NEURO: speech fluent. PSYCHIATRY: Normal mood and judgment Family History FH: diabetes mellitus FH: hypertension Myocardial infarction No family history of chronic kidney disease or end-stage renal disease. 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 Laboratory Results Past 24 Hours 01/25/18 05:15 01/25/18 05:15 Test 01/24/18 07:19 01/24/18 11:11 01/24/18 16:22 01/24/18 21:10 Bedside Glucose 96 mg/dl (70-99) 123 mg/dl (70-99) 149 mg/dl (70-99) 150 mg/dl (70-99) Test 01/25/18 05:15 Red Blood Count 3.01 M/uL (4.7-6.1) Mean Corpuscular Volume 100.3 fL (80-100) Mean Corpuscular Hemoglobin 32.6 pg (25-34) Mean Corpuscular Hemoglobin Concent 32.5 g/dl (32-36) RDW Standard Deviation 64.0 fL (36.4-46.3) RDW Coefficient of Variation 17.6 % (11.5-14.5) Mean Platelet Volume 8.9 fL (7.4-10.4) Prothrombin Time 26.1 SECONDS (9.0-12.0) Prothromb Time International Ratio 2.5 (0.9-1.1) Anion Gap 9.0 mmol/L (3-11) Est Creatinine Clear Calc Drug Dose 24.5 ml/min Estimated GFR () 19.0 Estimated GFR (Non- 16.4 BUN/Creatinine Ratio 33.2 (10-20) Calcium Level 7.8 mg/dl (8.5-10.1) Magnesium Level 3.1 mg/dl (1.8-2.4) Total Bilirubin 1.0 mg/dl (0.2-1) Direct Bilirubin 0.5 mg/dl (0-0.2) Aspartate Amino Transf (AST/SGOT) 61 U/L (15-37) Alanine Aminotransferase (ALT/SGPT) 37 U/L (12-78) Alkaline Phosphatase 539 U/L (45-117) Total Protein 6.4 gm/dl (6.4-8.2) Albumin 2.7 gm/dl (3.4-5.0) Allergies Coded Allergies: Amoxicillin (Unverified Allergy, Unknown, ., 01/22/18) CI Pigment Blue 63 (Unverified Allergy, Unknown, ., 01/22/18) Duloxetine (Unverified Allergy, Unknown, ., 01/22/18) Gabapentin (Unverified Allergy, Unknown, ., 01/22/18) Nitrofurantoin (Unverified Allergy, Unknown, ., 01/22/18) Pregabalin (Unverified Allergy, Unknown, ., 01/22/18) Chlorpheniramine (Verified Adverse Reaction, Intermediate, "CAUSE PROSTATE TO ENLARGE", 01/22/18) Linezolid (Verified Adverse Reaction, Intermediate, GI SYMPTOMS, 01/22/18) Concommitant GI bleed Phenylpropanolamine (Verified Adverse Reaction, Intermediate, "CAUSE PROSTATE TO ENLARGE"., 01/22/18) Medications Current Inpatient Medications Medications (Trade) Dose Ordered Sig/Sukhwinder Route Start Time Stop Time Status Last Admin Dose Admin Acetaminophen (Tylenol Tab) 650 mg Q4H PRN PO 01/22/18 10:45 02/21/18 10:44 01/24/18 11:23 650 MG Al Hydrox/Mg Hydrox/Simethicone (Maalox Max Susp) 15 ml Q4H PRN PO 01/22/18 10:45 02/21/18 10:44 Magnesium Hydroxide (Milk Of Magnesia Susp) 30 ml Q12H PRN PO 01/22/18 10:45 02/21/18 10:44 Ondansetron HCl (Zofran Inj) 4 mg Q6H PRN IV 01/22/18 10:45 02/21/18 10:44 Polyethylene (Miralax Powder Packet) 17 gm DAILY PRN PO 01/22/18 10:45 02/21/18 10:44 Glucose (Glucose 40% Gel) 15-30 GRAMS 15 GRAMS... UD PRN PO 01/22/18 10:45 02/21/18 10:44 Glucose (Glucose Chew Tab) 4-8 Tablets 4 Tabl... UD PRN PO 01/22/18 10:45 02/21/18 10:44 Dextrose (Dextrose 50% 50ML Syringe) 25-50ML 25ML FOR ... UD PRN IV 01/22/18 10:45 02/21/18 10:44 Glucagon (Glucagon Inj) 1 mg UD PRN SQ 01/22/18 10:45 02/21/18 10:44 Carbohydrates (Carbohydrates For Hypoglycemia) 15-30 GRAMS 15 grams if BSG 54-69... UD PRN PO 01/22/18 10:45 02/21/18 10:44 Insulin Aspart (novoLOG ASPART) SLIDING SCALE G... ACHS SC 01/22/18 11:00 02/21/18 10:59 01/24/18 16:48 3 UNITS Albuterol (Ventolin Hfa Inhaler) 2 puffs Q4 PRN INH 01/22/18 10:45 02/21/18 10:44 Albuterol/ Ipratropium (Duoneb) 3 ml TID PRN INH 01/22/18 10:45 02/21/18 10:44 Levothyroxine Sodium (Synthroid Tab) 100 mcg DAILYBB PO 01/23/18 06:00 02/22/18 05:59 01/25/18 06:08 100 MCG Miconazole Nitrate (Desenex Powder) 1 appln DAILY PRN EXT 01/22/18 10:45 02/21/18 10:44 Oxcarbazepine (Trileptal Tab) 150 mg QAM PO 01/23/18 09:00 02/22/18 08:59 01/24/18 08:20 150 MG Oxcarbazepine (Trileptal Tab) 300 mg QPM PO 01/22/18 21:00 02/21/18 20:59 01/24/18 22:05 300 MG Simvastatin (Zocor Tab) 20 mg DAILY PO 01/23/18 09:00 02/22/18 08:59 01/24/18 08:20 20 MG Tamsulosin HCl (Flomax Cap) 0.4 mg BID PO 01/22/18 21:00 02/21/18 20:59 01/24/18 22:05 0.4 MG Finasteride (Proscar Tab) 5 mg QAM PO 01/23/18 09:00 02/22/18 08:59 01/24/18 08:20 5 MG Ferrous Sulfate (Feosol Tab) 325 mg QAM PO 01/23/18 09:00 02/22/18 08:59 01/24/18 08:20 325 MG Fluconazole (Diflucan Tab) 100 mg QAM PO 01/23/18 09:00 02/02/18 08:59 01/24/18 08:21 100 MG Furosemide 80 mg/ Syringe 8 ml @ 4 mls/min BID IV 01/23/18 13:00 02/22/18 12:59 01/24/18 22:05 4 MLS/MIN Calcitriol (Rocaltrol Cap) 0.25 mcg TuThSa@0900 PO 01/24/18 09:45 02/23/18 09:44 01/24/18 10:25 0.25 MCG Warfarin Sodium (Coumadin Tab) 5 mg SuTuWeThSa@1600 PO 01/24/18 16:00 02/23/18 15:59 01/24/18 16:45 5 MG Warfarin Sodium (Coumadin Tab) 2.5 mg MoFr@1600 PO 01/25/18 16:00 02/24/18 15:59 Impression (1) Acute kidney injury (2) Chronic kidney disease (3) Weakness (4) Anemia (5) BPH (benign prostatic hyperplasia) (6) CHF (congestive heart failure) (7) Hypertension (8) Secondary hyperparathyroidism of renal origin Ernesto is a 82-year-old gentlemen with past medical history significant for stage 3 chronic kidney disease ( B/L cr 1.5-2.0 0 with history of recurrent acute kidney injury , CHF with right-sided heart failure and pulmonary hypertension requiring high dose of diuretics at this baseline, COPD, a recent history of osteomyelitis some of lower extremity, admitted to the hospital with worsening shortness of breath and generalized weakness for a week. Found to have fungal UTI, bacteremia as well as volume overload with CHF exacerbation. Recommendations -- continue on Lasix 80 milligram IV twice a day, aim for net negative more than a liter per 24 hours -- restrict free water to less than 1500 mL per day, low-salt diet. --Epogen 34959 units x1 dose given on 01/24/18, continue on calcitriol 0.25 micrograms 3 times a week --continue on diuretics to optimize volume status, monitor closely over the weekend, and if there is no significant improvement may need to consider renal replacement therapy sooner than later, may be as soon as early next week. --dose medications for GFR less than 30 Will follow
--- NOTE | 2018-01-25 11:07 | Hospitalist Progress Note ---
Hospitalist Progress Note Date of Service January 25, 2018. (Chuyita Gayle ., TONIAC) Subjective Pt evaluation today including: conversation w/ patient, conversation w/ family (daughter at bedside), physical exam, chart review, lab review, review of inpatient medication list Pain: None PO Intake: Tolerating PO diet Voiding: rucker catheter in place Patient states that his shortness of breath continues to improve. He still complains of a productive cough with clear sputum but denies wheezing. The patient's appetite is slowly improving. The patient denies fevers, chills, sweats, chest pain, palpitations, claudication, wheezing, nausea, vomiting, abdominal pain, dysuria, hematuria, urinary retention, paralysis, weakness, numbness and tingling. Additional Comments: See HPI for pertinent positives and negatives. All other systems reviewed and negative. (Chuyita Gayle ., HOMER-C) Objective Vital Signs Date Time Temp Pulse Resp B/P (MAP) Pulse Ox O2 Delivery O2 Flow Rate FiO2 01/25/18 08:00 Nasal Cannula 2.0 01/25/18 07:03 36.3 62 17 140/54 (82) 98 Nasal Cannula 3.0 Humidified Oxygen 01/25/18 04:22 36.4 62 15 121/60 (80) 97 Nasal Cannula 3.0 Humidified Oxygen 01/25/18 04:00 Nasal Cannula 2.0 01/24/18 23:59 Nasal Cannula 2.0 01/24/18 23:06 35.8 47 14 138/62 (87) 100 Nasal Cannula 3.0 Humidified Oxygen 01/24/18 20:00 Nasal Cannula 2.0 01/24/18 19:51 36.3 52 17 153/55 (87) 97 Nasal Cannula 2.0 01/24/18 16:00 Nasal Cannula 2.0 01/24/18 15:43 36.3 57 16 104/56 (72) 100 Nasal Cannula 3.0 01/24/18 12:00 Nasal Cannula 2.0 01/24/18 11:15 36.3 54 16 112/57 (75) 93 (Chuyita Gayle, TONIAC) Physical Exam Notes: General appearance: +Morbidly obese. Well-developed, well-nourished, no apparent distress Head: Normocephalic, atraumatic Eyes: Normal inspection, PERRL, EOMI ENT: Normal ENT inspection, hearing grossly normal, pharynx normal Neck: Supple, no JVD, trachea midline Respiratory/Chest: +Decreased breath sounds, poor respiratory effort. Lungs clear to auscultation, normal breath sounds, no respiratory distress Cardiovascular: +Irregularly irregular, bradycardic. Systolic murmur. No gallop Abdomen/GI: Normal bowel sounds, non-tender, soft Extremities/Musculoskeletal: +Erythema of bilateral lower extremities and swelling. 1+ pitting edema. No calf tenderness Neurological/Psych: Alert, normal mood/affect, oriented x 3 Skin: +Chronic lymphedema. Normal color, warm/dry, no rash (Chuyita Gayle ., PA-C) Laboratory Results Last 24 Hours Test 01/24/18 11:11 01/24/18 16:22 01/24/18 21:10 01/25/18 05:15 Bedside Glucose 123 mg/dl 149 mg/dl 150 mg/dl White Blood Count 5.18 K/uL Red Blood Count 3.01 M/uL Hemoglobin 9.8 g/dL Hematocrit 30.2 % Mean Corpuscular Volume 100.3 fL Mean Corpuscular Hemoglobin 32.6 pg Mean Corpuscular Hemoglobin Concent 32.5 g/dl RDW Standard Deviation 64.0 fL RDW Coefficient of Variation 17.6 % Platelet Count 76 K/uL Mean Platelet Volume 8.9 fL Prothrombin Time 26.1 SECONDS Prothromb Time International Ratio 2.5 Sodium Level 142 mmol/L Potassium Level 3.8 mmol/L Chloride Level 109 mmol/L Carbon Dioxide Level 24 mmol/L Anion Gap 9.0 mmol/L Blood Urea Nitrogen 110 mg/dl Creatinine 3.31 mg/dl Est Creatinine Clear Calc Drug Dose 24.5 ml/min Estimated GFR () 19.0 Estimated GFR (Non- 16.4 BUN/Creatinine Ratio 33.2 Random Glucose 101 mg/dl Calcium Level 7.8 mg/dl Magnesium Level 3.1 mg/dl Total Bilirubin 1.0 mg/dl Direct Bilirubin 0.5 mg/dl Aspartate Amino Transf (AST/SGOT) 61 U/L Alanine Aminotransferase (ALT/SGPT) 37 U/L Alkaline Phosphatase 539 U/L Total Protein 6.4 gm/dl Albumin 2.7 gm/dl (Chuyita Gayle ., PA-C) Assessment and Plan 82 y/o male with a history of CAD, h/o [place] s/p CABG x 2 2007, HTN, HLD, chronic diastolic CHF, a-fib, COPD, DM II with neuropathy, hypothyroidism, JACEK, CKD stage III-IV, lymphedema, EVENS, and urinary retention who presented to the ED on 01/22 with weakness and increased shortness of breath x 1 week. Pt hypothermic on arrival with temperature of 34.0C rectally. Pt bradycardic but otherwise VSS. CXR shows mild pulmonary edema and trace effusions. EKG no ischemic changes. INR supratherapeutic at 6.2. Creatinine elevated above baseline at 3.10. Lactic acid WNL. LFTs elevated above baseline. Pt received vanc, Zosyn and IVF in ED. Possible sepsis, found with UTI likely related to chronic Rucker--stable -Admit to telemetry. No acute events overnight. Pt in a-fib, HR 50s-60s -Pt has not had any further specific s/s of infection. Will d/c empiric vanc and Zosyn and monitor response off abx -1 of 2 blood cultures positive for coag negative staph, not lugdunensis, likely contamination -Flu swab negative -UA positive for yeast, urine culture positive for yeast not monty albicans -Continue Diflucan 100 mg PO qd, day #4 Acute on chronic diastolic CHF--improving -Mild edema on CXR, BNP elevated -Pt reports dry weight is 320 lb -Continue Lasix 80 mg IV BID -Fluid restriction 1500 mL -Daily weights, monitor I's & O's -UO 5 cc, net balance -1196 on 01/24 CARLO on CKD stage III-IV--worsening -Baseline creatinine 1.7-2.0 -Creatinine 3.31 on 01/25, up from 3.18 -Consult nephrology, appreciate recs: Continue Lasix with aim of negative balance 1L per day. Continue calcitriol 3x/week. If no significant improvement over weekend, may need to consider renal replacement therapy sooner rather than later, possibly early next week. CAD, h/o [place], CABG, HTN, HLD--stable -Continue Zocor 20 mg PO qd A-fib, supratherapeutic INR--resolved, stable -INR 2.5 on 01/25 -Continue warfarin 5 mg PO ////Bella, 2.5 mg PO / COPD--no wheezing appreciated -Continue prn DuoNeb, albuterol inhaler DM II w/neuropathy--last HgbA1c 7.1 on 11/14/17 -Hold 70/30 -Insulin sliding scale -Check BSGs q ac and qhs -Continue Trileptal 150 mg PO qam and 300 mg PO hs Hypothyroidism -TSH 5.25, recheck in 4-6 weeks after acute illness resolved -Continue Synthroid 100 mcg PO qd JACEK--stable -Hgb remains stable -Continue ferrous sulfate -Iron and transferrin low, TIBC WNL -Epogen x 1 on 01/24 EVENS -Pt may use own CPAP w/2L NC at night Urinary retention -Continue Flomax BID and Rucker -Convert Avodart to Proscar 5 mg PO qd DVT prophylaxis -Warfarin -SARBJIT shahriare and SCDs Code Status -Level I, FULL RESUSCITATION STATUS -Pt states he is unsure what he wants for code status, can address again later (Chuyita Gayle ., PA-C) Supervising Note Dr. Carrillo I performed a history and physical examination on the patient. I reviewed above note and agree with it. I discussed plan with APC and patient. During my face to face encounter with the patient, I answered all of the patient's questions. Unsure as the cause of his hypothermia. Will continue to monitor. Patient will continue to be on antifungal meds. (Harvey Carrillo M.D.)
[2018-01-25 11:28] VITALS: BP 127/77; PULSE 56; TEMP 36.3; O2SAT 99
[2018-01-25 15:21] VITALS: BP 126/71; PULSE 53; TEMP 36.3; O2SAT 100
[2018-01-25] MEDS ORDERED: WARFARIN PO SCH (16:00)
[2018-01-25 19:24] VITALS: BP 127/59; PULSE 46; TEMP 36; O2SAT 100
[2018-01-26] VITALS (10 sets, daily range): BP systolic 113–159; BP diastolic 47–78; PULSE 48–55; TEMP 34.4–36.5; O2SAT 95–100
[2018-01-26] MEDS: LEVOTHYROXINE 100 MCG TAB PO SCH (05:55)
[2018-01-26 06:01] LABS: HEMOGLOBIN 9.3 g/dL (14.0-18.0); MEAN CELL VOLUME 100.3 fL (80-100); MEAN CORPUSCULAR HEMOGLOBIN 32.2 pg (25-34); MEAN CORPUSCULAR HGB CONC 32.1 g/dl (32-36); NUCLEATED RED BLOOD CELL ABS 0.02 K/uL (0-0); RED CELL DISTRIBUTION WIDTH CV 17.4 % (11.5-14.5); RED CELL DISTRIBUTION WIDTH SD 62.2 fL (36.4-46.3); WHITE BLOOD COUNT 5.17 K/uL (4.8-10.8)
[2018-01-26 06:03] LABS: MEAN PLATELET VOLUME 9.7 fL (7.4-10.4); PLATELET COUNT 73 K/uL (130-400)
[2018-01-26 06:18] LABS: CALCIUM 8.1 mg/dl (8.5-10.1); CREATININE 3.24 mg/dl (0.60-1.40); PHOSPHORUS 6.2 mg/dl (2.5-4.9); POTASSIUM 3.6 mmol/L (3.5-5.1)
[2018-01-26] MEDS: FERROUS SULFATE 325 MG TAB PO SCH (08:36)
[2018-01-26] MEDS: CALCITRIOL 0.25 MCG CAP PO SCH (08:36)
[2018-01-26] MEDS: FUROSEMIDE INJ 80 MG in SYRINGE 0 ML IV SCH ×2 (08:36→21:26)
[2018-01-26] MEDS: FLUCONAZOLE 100 MG TAB PO SCH (08:36)
[2018-01-26] MEDS: OXCARBAZEPINE 150 MG TAB PO SCH ×2 (08:36→21:27)
[2018-01-26] MEDS: TAMSULOSIN HCL 0.4 MG CAP PO SCH ×2 (08:36→21:26)
[2018-01-26] MEDS: FINASTERIDE 5 MG TAB PO SCH (08:36)
[2018-01-26] MEDS: SIMVASTATIN 20 MG TAB PO SCH (08:36)
[2018-01-26] MEDS: INSULIN ASPART 100 UNITS/ML 3 ML PEN SC SCH ×4 (08:42→21:25)
--- NOTE | 2018-01-26 10:10 | DIAGNOSTIC IMAGING REPORT ---
CHEST ONE VIEW PORTABLE HISTORY: 82 years-old Male sob acute shortness of breath COMPARISON: Chest radiograph 01/22/2018 TECHNIQUE: Portable AP view of the chest FINDINGS: Cardiac silhouette is moderately enlarged. Widening of the mediastinum redemonstrated. Atherosclerosis of the aorta. Pulmonary vascular congestion with mild interstitial coarsening redemonstrated, unchanged. No pneumothorax. Suspected trace effusions with subsegmental bibasilar opacities, right greater than left. Fixation hardware of the sternum noted with degenerative changes of the shoulders and spine. IMPRESSION: 1. Cardiomegaly with persistent mild pulmonary edema. 2. Trace bilateral pleural effusions with right greater than left bibasilar opacities. The above report was generated using voice recognition software. It may contain grammatical, syntax or spelling errors. Electronically signed by: Juan Pablo Murphy M.D. 01/26/2018 10:08 AM Dictated Date/Time: 01/26/2018 10:05 AM
[2018-01-26 11:17] LABS: INR 3.5 (0.9-1.1)
--- NOTE | 2018-01-26 12:22 | Nephrology Progress Note ---
Nephrology Progress Note Date of Service January 26, 2018. Chief Complaint CARLO Subjective No acute events overnight. Mr. Avery was resting comfortably in bedside chair this morning. He feels tired and weak. He reports having difficulty concentrating and feeling very lethargic. His thinking has not been clear and he has some difficulty with word finding. He denies fevers or chills. No pain. Denies significant dyspnea. Mckeon remains intact. Review of Systems A complete review of systems was performed. Pertinent positives are noted above. All other systems are negative. Vital Signs Last 8 Hrs Date Time Temp Pulse Resp B/P (MAP) Pulse Ox O2 Delivery O2 Flow Rate FiO2 01/26/18 08:06 Nasal Cannula 3.0 01/26/18 07:08 36.4 53 20 123/62 (82) 96 Nasal Cannula 2.0 01/26/18 04:30 36.3 Last Recorded Weight Weight (Kilograms): 150.000 Physical Exam General Appearance: no apparent distress, + obese Head: normocephalic, atraumatic Eyes: normal inspection, sclerae normal ENT: normal ENT inspection, pharynx normal Neck: + pertinent finding (thick, supple, increased JVP) Respiratory/Chest: no respiratory distress, no accessory muscle use, + decreased breath sounds, + rales Cardiovascular: no gallop, + bradycardia Abdomen/GI: non tender, soft, + distended Extremities/Musculoskelatal: no calf tenderness, + pedal edema Neurologic/Psych: alert, + depressed affect Family History FH: diabetes mellitus FH: hypertension Myocardial infarction No family history of chronic kidney disease or end-stage renal disease. 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 Laboratory Results Past 24 Hours 01/26/18 05:22 01/26/18 05:22 Test 01/25/18 16:16 01/25/18 20:56 01/26/18 05:22 01/26/18 07:10 Bedside Glucose 175 mg/dl (70-99) 156 mg/dl (70-99) 121 mg/dl (70-99) Red Blood Count 2.89 M/uL (4.7-6.1) Mean Corpuscular Volume 100.3 fL (80-100) Mean Corpuscular Hemoglobin 32.2 pg (25-34) Mean Corpuscular Hemoglobin Concent 32.1 g/dl (32-36) RDW Standard Deviation 62.2 fL (36.4-46.3) RDW Coefficient of Variation 17.4 % (11.5-14.5) Mean Platelet Volume 9.7 fL (7.4-10.4) Nucleated RBC Absolute Count (auto) 0.02 K/uL (0-0) Nucleated Red Blood Cells % 0.4 % Anion Gap 10.0 mmol/L (3-11) Est Creatinine Clear Calc Drug Dose 25.1 ml/min Estimated GFR () 19.5 Estimated GFR (Non- 16.8 BUN/Creatinine Ratio 35.7 (10-20) Calcium Level 8.1 mg/dl (8.5-10.1) Phosphorus Level 6.2 mg/dl (2.5-4.9) Magnesium Level 2.8 mg/dl (1.8-2.4) Test 01/26/18 10:51 01/26/18 11:29 Prothrombin Time 35.5 SECONDS (9.0-12.0) Prothromb Time International Ratio 3.5 (0.9-1.1) Bedside Glucose 151 mg/dl (70-99) Allergies Coded Allergies: Amoxicillin (Unverified Allergy, Unknown, ., 01/22/18) CI Pigment Blue 63 (Unverified Allergy, Unknown, ., 01/22/18) Duloxetine (Unverified Allergy, Unknown, ., 01/22/18) Gabapentin (Unverified Allergy, Unknown, ., 01/22/18) Nitrofurantoin (Unverified Allergy, Unknown, ., 01/22/18) Pregabalin (Unverified Allergy, Unknown, ., 01/22/18) Chlorpheniramine (Verified Adverse Reaction, Intermediate, "CAUSE PROSTATE TO ENLARGE", 01/22/18) Linezolid (Verified Adverse Reaction, Intermediate, GI SYMPTOMS, 01/22/18) Concommitant GI bleed Phenylpropanolamine (Verified Adverse Reaction, Intermediate, "CAUSE PROSTATE TO ENLARGE"., 01/22/18) Medications Current Inpatient Medications Medications (Trade) Dose Ordered Sig/Sukhwinder Route Start Time Stop Time Status Last Admin Dose Admin Acetaminophen (Tylenol Tab) 650 mg Q4H PRN PO 01/22/18 10:45 02/21/18 10:44 01/24/18 11:23 650 MG Al Hydrox/Mg Hydrox/Simethicone (Maalox Max Susp) 15 ml Q4H PRN PO 01/22/18 10:45 02/21/18 10:44 Magnesium Hydroxide (Milk Of Magnesia Susp) 30 ml Q12H PRN PO 01/22/18 10:45 02/21/18 10:44 Ondansetron HCl (Zofran Inj) 4 mg Q6H PRN IV 01/22/18 10:45 02/21/18 10:44 Polyethylene (Miralax Powder Packet) 17 gm DAILY PRN PO 01/22/18 10:45 02/21/18 10:44 Glucose (Glucose 40% Gel) 15-30 GRAMS 15 GRAMS... UD PRN PO 01/22/18 10:45 02/21/18 10:44 Glucose (Glucose Chew Tab) 4-8 Tablets 4 Tabl... UD PRN PO 01/22/18 10:45 02/21/18 10:44 Dextrose (Dextrose 50% 50ML Syringe) 25-50ML 25ML FOR ... UD PRN IV 01/22/18 10:45 02/21/18 10:44 Glucagon (Glucagon Inj) 1 mg UD PRN SQ 01/22/18 10:45 02/21/18 10:44 Carbohydrates (Carbohydrates For Hypoglycemia) 15-30 GRAMS 15 grams if BSG 54-69... UD PRN PO 01/22/18 10:45 02/21/18 10:44 Insulin Aspart (novoLOG ASPART) SLIDING SCALE G... ACHS SC 01/22/18 11:00 02/21/18 10:59 01/26/18 08:42 5 UNITS Albuterol (Ventolin Hfa Inhaler) 2 puffs Q4 PRN INH 01/22/18 10:45 02/21/18 10:44 Albuterol/ Ipratropium (Duoneb) 3 ml TID PRN INH 01/22/18 10:45 02/21/18 10:44 Levothyroxine Sodium (Synthroid Tab) 100 mcg DAILYBB PO 01/23/18 06:00 02/22/18 05:59 01/26/18 05:55 100 MCG Miconazole Nitrate (Desenex Powder) 1 appln DAILY PRN EXT 01/22/18 10:45 02/21/18 10:44 Oxcarbazepine (Trileptal Tab) 150 mg QAM PO 01/23/18 09:00 02/22/18 08:59 01/26/18 08:36 150 MG Oxcarbazepine (Trileptal Tab) 300 mg QPM PO 01/22/18 21:00 02/21/18 20:59 01/25/18 21:01 300 MG Simvastatin (Zocor Tab) 20 mg DAILY PO 01/23/18 09:00 02/22/18 08:59 01/26/18 08:36 20 MG Tamsulosin HCl (Flomax Cap) 0.4 mg BID PO 01/22/18 21:00 02/21/18 20:59 01/26/18 08:36 0.4 MG Finasteride (Proscar Tab) 5 mg QAM PO 01/23/18 09:00 02/22/18 08:59 01/26/18 08:36 5 MG Ferrous Sulfate (Feosol Tab) 325 mg QAM PO 01/23/18 09:00 02/22/18 08:59 01/26/18 08:36 325 MG Fluconazole (Diflucan Tab) 100 mg QAM PO 01/23/18 09:00 02/02/18 08:59 01/26/18 08:36 100 MG Furosemide 80 mg/ Syringe 8 ml @ 4 mls/min BID IV 01/23/18 13:00 02/22/18 12:59 01/26/18 08:36 4 MLS/MIN Calcitriol (Rocaltrol Cap) 0.25 mcg TuThSa@0900 PO 01/24/18 09:45 02/23/18 09:44 01/26/18 08:36 0.25 MCG Warfarin Sodium (Coumadin Tab) 5 mg SuTuWeThSa@1600 PO 01/24/18 16:00 02/23/18 15:59 01/24/18 16:45 5 MG Warfarin Sodium (Coumadin Tab) 2.5 mg MoFr@1600 PO 01/25/18 16:00 02/24/18 15:59 01/25/18 16:40 2.5 MG Impression (1) Acute kidney injury (2) Chronic kidney disease (3) Weakness (4) Anemia (5) BPH (benign prostatic hyperplasia) (6) CHF (congestive heart failure) (7) Hypertension (8) Secondary hyperparathyroidism of renal origin Mr. Avery is an 82-year-old male with CKD III-IV (baseline creatinine of 1.5-2.0) with multiple episodes of CARLO. Medical history is notable for CHF with right-sided heart failure and pulmonary hypertension requiring high dose of diuretics at this baseline, COPD, a recent history of osteomyelitis/bacteremia with osteomyelitis in the foot and infected sternal hardware. Chad was admitted to the hospital with worsening shortness of breath and generalized weakness. He was diagnosed with a fungal UTI, bacteremia as well as volume overload with CHF exacerbation and acute on chronic renal insufficiency. Recommendations CARLO/CKD: -- Metabolic profile acceptable -- Creatinine stable -- No current indication for [employer] -- Discussed potential future indications for dialysis with the patient today. Bennie is no object to considering dialysis if indicated Acute on chronic diastolic CHF/pulmonary hypertension/R heart failure: -- Furosemide 80 mg BID to encourage net negative fluid balance ~1 L/d -- Daily fluid intake < 1500 mL per day, low-salt diet Anemia: -- Epogen 90677 units x1 doseon 01/24/18, CKD/MBD: -- Calcitriol 0.25 micrograms 3 times a week
--- NOTE | 2018-01-26 16:00 | DIAGNOSTIC IMAGING REPORT ---
ASCITES-ABDOMEN LIMITED HISTORY: 82 years-old Male very sob with movement acute shortness of breath with ascites COMPARISON: CT abdomen and pelvis 12/03/2017 TECHNIQUE: Multiple real-time sonographic images of the abdomen were obtained assessing grayscale appearance FINDINGS: Small volume ascites is noted within the right upper quadrant and bilateral lower quadrants. Cyst of the lower pole left kidney is again noted measuring up to 9.6 cm in greatest dimension. IMPRESSION: Only a small volume of abdominal ascites is seen throughout the abdomen. The above report was generated using voice recognition software. It may contain grammatical, syntax or spelling errors. Electronically signed by: Juan Pablo Murphy M.D. 01/26/2018 3:59 PM Dictated Date/Time: 01/26/2018 3:56 PM
[2018-01-26] MEDS: WARFARIN SOD 5 MG TAB PO SCH (21:26)
--- NOTE | 2018-01-26 21:52 | Progress Note ---
Subjective Date of Service: January 26, 2018. Subjective Pt evaluation today including: conversation w/ patient, conversation w/ family 82 yo male reports feeling mildly better today. He reports decreased shortness of breath today. Problem List Medical Problems: (1) Bleeding from PICC line Status: Acute (2) Cellulitis of left lower extremity Status: Acute (3) Chronic kidney disease Status: Acute (4) Dyspnea Status: Acute (5) Facial abrasion Status: Acute (6) Failure of outpatient treatment Status: Acute (7) Fever Status: Acute (8) Fever Status: Acute (9) Fever Status: Acute (10) Hypoxia Status: Acute (11) Lactic acid acidosis Status: Acute (12) Leukocytosis Status: Acute (13) Leukocytosis Status: Acute (14) Pneumonia Status: Acute (15) Renal failure Status: Acute (16) Sepsis Status: Acute (17) Sepsis Status: Acute (18) UTI (urinary tract infection) Status: Acute (19) UTI (urinary tract infection) Status: Acute (20) Weakness Status: Acute Review of Systems denies fevers, chills, sweats, chest pain, palpitations, claudication, wheezing , nausea, vomiting, abdominal pain, dysuria, hematuria, urinary retention, paralysis, weakness, numbness and tingling. All Other Systems: Reviewed and Negative Objective Vital Signs Date Time Temp Pulse Resp B/P (MAP) Pulse Ox O2 Delivery O2 Flow Rate FiO2 01/26/18 20:00 Nasal Cannula 2.0 01/26/18 18:58 34.4 52 20 159/57 (91) 97 Nasal Cannula 4.0 Humidified Oxygen 01/26/18 16:00 Nasal Cannula 2.0 01/26/18 15:11 54 20 131/68 (89) 99 Nasal Cannula 4.0 Humidified Oxygen 01/26/18 14:03 95 2.0 01/26/18 13:03 55 98 01/26/18 12:03 100 Nasal Cannula 2.0 01/26/18 10:41 36.5 52 20 113/72 (86) 99 Nasal Cannula 4.0 01/26/18 08:06 Nasal Cannula 3.0 01/26/18 07:08 36.4 53 20 123/62 (82) 96 Nasal Cannula 2.0 01/26/18 04:30 36.3 01/26/18 04:00 Nasal Cannula 2.0 01/26/18 03:36 50 18 120/59 (79) 100 01/26/18 00:17 36.4 48 16 114/47 (69) 95 2.0 01/25/18 23:59 Nasal Cannula 2.0 Physical Exam Comments: General Appearance: no apparent distress, + obese Head: normocephalic, atraumatic Eyes: normal inspection, sclerae normal ENT: normal ENT inspection, pharynx normal Neck: + pertinent finding (thick, supple, increased JVP) Respiratory/Chest: no respiratory distress, no accessory muscle use, + decreased breath sounds, + rales Cardiovascular: no gallop, + bradycardia Abdomen/GI: non tender, soft, + distended Extremities/Musculoskelatal: no calf tenderness, + pedal edema Neurologic/Psych: alert, + depressed affect Laboratory Results Last 24 Hours Test 01/26/18 05:22 01/26/18 07:10 01/26/18 10:51 01/26/18 11:29 White Blood Count 5.17 K/uL Red Blood Count 2.89 M/uL Hemoglobin 9.3 g/dL Hematocrit 29.0 % Mean Corpuscular Volume 100.3 fL Mean Corpuscular Hemoglobin 32.2 pg Mean Corpuscular Hemoglobin Concent 32.1 g/dl RDW Standard Deviation 62.2 fL RDW Coefficient of Variation 17.4 % Platelet Count 73 K/uL Mean Platelet Volume 9.7 fL Nucleated RBC Absolute Count (auto) 0.02 K/uL Nucleated Red Blood Cells % 0.4 % Sodium Level 145 mmol/L Potassium Level 3.6 mmol/L Chloride Level 108 mmol/L Carbon Dioxide Level 26 mmol/L Anion Gap 10.0 mmol/L Blood Urea Nitrogen 116 mg/dl Creatinine 3.24 mg/dl Est Creatinine Clear Calc Drug Dose 25.1 ml/min Estimated GFR () 19.5 Estimated GFR (Non- 16.8 BUN/Creatinine Ratio 35.7 Random Glucose 114 mg/dl Calcium Level 8.1 mg/dl Phosphorus Level 6.2 mg/dl Magnesium Level 2.8 mg/dl Bedside Glucose 121 mg/dl 151 mg/dl Prothrombin Time 35.5 SECONDS Prothromb Time International Ratio 3.5 Test 01/26/18 16:33 01/26/18 20:31 Bedside Glucose 114 mg/dl 151 mg/dl Assessment and Plan 82 y/o male with a history of CAD, h/o [place] s/p CABG x 2 2007, HTN, HLD, chronic diastolic CHF, a-fib, COPD, DM II with neuropathy, hypothyroidism, JACEK, CKD stage III-IV, lymphedema, EVENS, and urinary retention who presented to the ED on 01/22 with weakness and increased shortness of breath x 1 week. Pt hypothermic on arrival with temperature of 34.0C rectally. Pt bradycardic but otherwise VSS. CXR shows mild pulmonary edema and trace effusions. EKG no ischemic changes. INR supratherapeutic at 6.2. Creatinine elevated above baseline at 3.10. Lactic acid WNL. LFTs elevated above baseline. Pt received vanc, Zosyn and IVF in ED. Possible sepsis, found with UTI likely related to chronic Mckeon--stable -Admitted to telemetry. No acute events overnight. Pt in a-fib, HR 50s-60s -Pt has not had any further specific s/s of infection. Will d/c empiric vanc and Zosyn and monitor response off abx -1 of 2 blood cultures positive for coag negative staph, not lugdunensis, likely contamination -Flu swab negative -UA positive for yeast, urine culture positive for yeast not monty albicans -Continue Diflucan 100 mg PO qd, day #5 -stopped antibiotics -will continue to monitor Acute on chronic diastolic CHF--improving -Mild edema on CXR, BNP elevated -Pt reports dry weight is 320 lb -Continue Lasix 80 mg IV BID -Fluid restriction 1500 mL -Daily weights, monitor I's & O's -UO 2025 cc, net balance -3000 on 01/24 CARLO on CKD stage III-IV--worsening -Baseline creatinine 1.7-2.0 -Creatinine 3.31 on 01/25, up from 3.18 -Consult nephrology, appreciate recs: Continue Lasix with aim of negative balance 1L per day. Continue calcitriol 3x/week. If no significant improvement over weekend, may need to consider renal replacement therapy sooner rather than later, possibly early next week. CAD, h/o [place], CABG, HTN, HLD--stable -Continue Zocor 20 mg PO qd A-fib, supratherapeutic INR--resolved, stable -INR 2.5 on 5/11 -Continue warfarin 5 mg PO ////Bella, 2.5 mg PO / COPD--no wheezing appreciated -Continue prn DuoNeb, albuterol inhaler DM II w/neuropathy--last HgbA1c 7.1 on 11/14/17 -Hold 70/30 -Insulin sliding scale -Check BSGs q ac and qhs -Continue Trileptal 150 mg PO qam and 300 mg PO hs Hypothyroidism -TSH 5.25, recheck in 4-6 weeks after acute illness resolved -Continue Synthroid 100 mcg PO qd JACEK--stable -Hgb remains stable -Continue ferrous sulfate -Iron and transferrin low, TIBC WNL -Epogen x 1 on 01/24 EVENS -Pt may use own CPAP w/2L NC at night Urinary retention -Continue Flomax BID and Mckeon -Convert Avodart to Proscar 5 mg PO qd DVT prophylaxis -Warfarin -SARBJIT lora and SCDs Code Status -Level I, FULL RESUSCITATION STATUS -Pt states he is unsure what he wants for code status, can address again later
[2018-01-27] VITALS (8 sets, daily range): BP systolic 116–150; BP diastolic 52–70; PULSE 47–56; TEMP 34.5–36.4; O2SAT 91–100
[2018-01-27] MEDS: LEVOTHYROXINE 100 MCG TAB PO SCH (05:46)
[2018-01-27 06:26] LABS: INR 4.4 (0.9-1.1)
[2018-01-27 06:31] LABS: ALBUMIN 2.7 gm/dl (3.4-5.0); CREATININE 3.18 mg/dl (0.60-1.40); POTASSIUM 3.4 mmol/L (3.5-5.1)
[2018-01-27 06:32] LABS: PHOSPHORUS 5.8 mg/dl (2.5-4.9)
[2018-01-27] MEDS: OXCARBAZEPINE 150 MG TAB PO SCH ×2 (07:42→21:25)
[2018-01-27] MEDS: TAMSULOSIN HCL 0.4 MG CAP PO SCH ×2 (07:42→21:26)
[2018-01-27] MEDS: FINASTERIDE 5 MG TAB PO SCH (07:42)
[2018-01-27] MEDS: SIMVASTATIN 20 MG TAB PO SCH (07:42)
[2018-01-27] MEDS: FLUCONAZOLE 100 MG TAB PO SCH (07:42)
[2018-01-27] MEDS: FERROUS SULFATE 325 MG TAB PO SCH (07:42)
[2018-01-27] MEDS: INSULIN ASPART 100 UNITS/ML 3 ML PEN SC SCH ×4 (07:44→21:31)
[2018-01-27] MEDS: FUROSEMIDE INJ 80 MG in SYRINGE 0 ML IV SCH ×2 (07:47→21:24)
[2018-01-27] MEDS ORDERED: PHYTONADIONE 5 MG TAB PO ONE (08:45)
[2018-01-27] MEDS ORDERED: POTASSIUM CHLORIDE 20 MEQ TABCR PO ONE (09:30)
--- NOTE | 2018-01-27 10:40 | Nephrology Progress Note ---
Nephrology Progress Note Date of Service January 27, 2018. Chief Complaint CARLO Subjective No acute events overnight. Chad was resting comfortably in bedside chair this morning. He denies shortness of breath. He denies any fevers or chills. He remains significantly weak. No chest pain or palpitations. Appetite fair. He also continues to note that he is not thinking clearly. Review of Systems A complete review of systems was performed. Pertinent positives are noted above. All other systems are negative. Vital Signs Last 8 Hrs Date Time Temp Pulse Resp B/P (MAP) Pulse Ox O2 Delivery O2 Flow Rate FiO2 01/27/18 08:08 Nasal Cannula 3.0 01/27/18 07:22 36.4 55 20 150/60 (90) 97 Nasal Cannula 4.0 01/27/18 04:00 Nasal Cannula 2.0 01/27/18 03:43 35.5 55 18 116/52 (73) 97 Last Recorded Weight Weight (Kilograms): 150.000 Physical Exam General Appearance: + mild distress, + obese Head: normocephalic, atraumatic Eyes: normal inspection, sclerae normal ENT: normal ENT inspection, pharynx normal Neck: supple, + JVD (increased JVP) Respiratory/Chest: no accessory muscle use, + decreased breath sounds, + rales (basilar ) Cardiovascular: + bradycardia, + systolic murmur, + irregularly irregular Abdomen/GI: non tender, soft Genitourinary - Male: + pertinent finding (Roman draining clear yellow urine) Extremities/Musculoskelatal: normal inspection, + pedal edema (generalized) Neurologic/Psych: alert, normal mood/affect Family History FH: diabetes mellitus FH: hypertension Myocardial infarction No family history of chronic kidney disease or end-stage renal disease. 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 Laboratory Results Past 24 Hours 01/27/18 05:21 Test 01/26/18 10:51 01/26/18 11:29 01/26/18 16:33 01/26/18 20:31 Prothrombin Time 35.5 SECONDS (9.0-12.0) Prothromb Time International Ratio 3.5 (0.9-1.1) Bedside Glucose 151 mg/dl (70-99) 114 mg/dl (70-99) 151 mg/dl (70-99) Test 01/27/18 05:21 01/27/18 07:20 Prothrombin Time 45.3 SECONDS (9.0-12.0) Prothromb Time International Ratio 4.4 (0.9-1.1) Anion Gap 11.0 mmol/L (3-11) Est Creatinine Clear Calc Drug Dose 25.6 ml/min Estimated GFR () 20.0 Estimated GFR (Non- 17.2 BUN/Creatinine Ratio 36.0 (10-20) Calcium Level 8.0 mg/dl (8.5-10.1) Phosphorus Level 5.8 mg/dl (2.5-4.9) Albumin 2.7 gm/dl (3.4-5.0) Bedside Glucose 111 mg/dl (70-99) Allergies Coded Allergies: Amoxicillin (Unverified Allergy, Unknown, ., 01/22/18) CI Pigment Blue 63 (Unverified Allergy, Unknown, ., 01/22/18) Duloxetine (Unverified Allergy, Unknown, ., 01/22/18) Gabapentin (Unverified Allergy, Unknown, ., 01/22/18) Nitrofurantoin (Unverified Allergy, Unknown, ., 01/22/18) Pregabalin (Unverified Allergy, Unknown, ., 01/22/18) Chlorpheniramine (Verified Adverse Reaction, Intermediate, "CAUSE PROSTATE TO ENLARGE", 01/22/18) Linezolid (Verified Adverse Reaction, Intermediate, GI SYMPTOMS, 01/22/18) Concommitant GI bleed Phenylpropanolamine (Verified Adverse Reaction, Intermediate, "CAUSE PROSTATE TO ENLARGE"., 01/22/18) Medications Current Inpatient Medications Medications (Trade) Dose Ordered Sig/Sukhwinder Route Start Time Stop Time Status Last Admin Dose Admin Acetaminophen (Tylenol Tab) 650 mg Q4H PRN PO 01/22/18 10:45 02/21/18 10:44 01/24/18 11:23 650 MG Al Hydrox/Mg Hydrox/Simethicone (Maalox Max Susp) 15 ml Q4H PRN PO 01/22/18 10:45 02/21/18 10:44 Magnesium Hydroxide (Milk Of Magnesia Susp) 30 ml Q12H PRN PO 01/22/18 10:45 02/21/18 10:44 Ondansetron HCl (Zofran Inj) 4 mg Q6H PRN IV 01/22/18 10:45 02/21/18 10:44 Polyethylene (Miralax Powder Packet) 17 gm DAILY PRN PO 01/22/18 10:45 02/21/18 10:44 Glucose (Glucose 40% Gel) 15-30 GRAMS 15 GRAMS... UD PRN PO 01/22/18 10:45 02/21/18 10:44 Glucose (Glucose Chew Tab) 4-8 Tablets 4 Tabl... UD PRN PO 01/22/18 10:45 02/21/18 10:44 Dextrose (Dextrose 50% 50ML Syringe) 25-50ML 25ML FOR ... UD PRN IV 01/22/18 10:45 02/21/18 10:44 Glucagon (Glucagon Inj) 1 mg UD PRN SQ 01/22/18 10:45 02/21/18 10:44 Carbohydrates (Carbohydrates For Hypoglycemia) 15-30 GRAMS 15 grams if BSG 54-69... UD PRN PO 01/22/18 10:45 02/21/18 10:44 Insulin Aspart (novoLOG ASPART) SLIDING SCALE G... ACHS SC 01/22/18 11:00 02/21/18 10:59 01/27/18 07:44 5 UNITS Albuterol (Ventolin Hfa Inhaler) 2 puffs Q4 PRN INH 01/22/18 10:45 02/21/18 10:44 Albuterol/ Ipratropium (Duoneb) 3 ml TID PRN INH 01/22/18 10:45 02/21/18 10:44 Levothyroxine Sodium (Synthroid Tab) 100 mcg DAILYBB PO 01/23/18 06:00 02/22/18 05:59 01/27/18 05:46 100 MCG Miconazole Nitrate (Desenex Powder) 1 appln DAILY PRN EXT 01/22/18 10:45 02/21/18 10:44 Oxcarbazepine (Trileptal Tab) 150 mg QAM PO 01/23/18 09:00 02/22/18 08:59 01/27/18 07:42 150 MG Oxcarbazepine (Trileptal Tab) 300 mg QPM PO 01/22/18 21:00 02/21/18 20:59 01/26/18 21:27 300 MG Simvastatin (Zocor Tab) 20 mg DAILY PO 01/23/18 09:00 02/22/18 08:59 01/27/18 07:42 20 MG Tamsulosin HCl (Flomax Cap) 0.4 mg BID PO 01/22/18 21:00 02/21/18 20:59 01/27/18 07:42 0.4 MG Finasteride (Proscar Tab) 5 mg QAM PO 01/23/18 09:00 02/22/18 08:59 01/27/18 07:42 5 MG Ferrous Sulfate (Feosol Tab) 325 mg QAM PO 01/23/18 09:00 02/22/18 08:59 01/27/18 07:42 325 MG Fluconazole (Diflucan Tab) 100 mg QAM PO 01/23/18 09:00 02/02/18 08:59 01/27/18 07:42 100 MG Furosemide 80 mg/ Syringe 8 ml @ 4 mls/min BID IV 01/23/18 13:00 02/22/18 12:59 01/27/18 07:47 4 MLS/MIN Calcitriol (Rocaltrol Cap) 0.25 mcg TuThSa@0900 PO 01/24/18 09:45 02/23/18 09:44 01/26/18 08:36 0.25 MCG Warfarin Sodium (Coumadin Tab) 5 mg SuTuWeThSa@1600 PO 01/24/18 16:00 02/23/18 15:59 01/24/18 16:45 5 MG Warfarin Sodium (Coumadin Tab) 2.5 mg MoFr@1600 PO 01/25/18 16:00 02/24/18 15:59 01/25/18 16:40 2.5 MG Potassium Chloride (Klor-Con Tab) 20 meq BID PO 01/27/18 21:00 01/28/18 21:01 Impression (1) Acute kidney injury (2) Chronic kidney disease (3) Weakness (4) Anemia (5) BPH (benign prostatic hyperplasia) (6) CHF (congestive heart failure) (7) Hypertension (8) Secondary hyperparathyroidism of renal origin Mr. Avery is an 82-year-old male with CKD IV (baseline creatinine of 1.5-2.0) with multiple episodes of CARLO. Medical history is notable for CHF with right-sided heart failure and pulmonary hypertension requiring high dose of diuretics at this baseline, COPD, a recent history of osteomyelitis/bacteremia with osteomyelitis in the foot and infected sternal hardware. The patient has a bioprosthetic valve and was treated with an extended course of antibiotics following diagnosis of bacteremia in March. Chad was admitted to the hospital with worsening shortness of breath and generalized weakness. He was diagnosed with a fungal UTI, bacteremia as well as volume overload with CHF exacerbation and acute on chronic renal insufficiency. Recommendations CARLO/CKD: -- Metabolic profile acceptable -- Creatinine stable -- No current indication for [employer] -- Discussed potential future indications for dialysis with the patient today. Bennie is no object to considering dialysis if indicated Acute on chronic diastolic CHF/pulmonary hypertension/R heart failure: -- Furosemide 80 mg BID to encourage net negative fluid balance ~1 L/d -- Daily fluid intake < 1500 mL per day, low-salt diet Anemia: -- Epogen 41124 units x1 dose on 01/24/18, CKD/MBD: -- Calcitriol 0.25 micrograms 3 times a week
[2018-01-27] MEDS: POTASSIUM CHLORIDE 20 MEQ TABCR PO SCH (21:26)
--- NOTE | 2018-01-27 23:08 | Progress Note ---
Subjective Date of Service: January 27, 2018. Subjective Pt evaluation today including: conversation w/ patient Patient reports he feels better in regards to his breathing nursing staff states though he remains edematous. Problem List Medical Problems: (1) Bleeding from PICC line Status: Acute (2) Cellulitis of left lower extremity Status: Acute (3) Chronic kidney disease Status: Acute (4) Dyspnea Status: Acute (5) Facial abrasion Status: Acute (6) Failure of outpatient treatment Status: Acute (7) Fever Status: Acute (8) Fever Status: Acute (9) Fever Status: Acute (10) Hypoxia Status: Acute (11) Lactic acid acidosis Status: Acute (12) Leukocytosis Status: Acute (13) Leukocytosis Status: Acute (14) Pneumonia Status: Acute (15) Renal failure Status: Acute (16) Sepsis Status: Acute (17) Sepsis Status: Acute (18) UTI (urinary tract infection) Status: Acute (19) UTI (urinary tract infection) Status: Acute (20) Weakness Status: Acute Review of Systems The patient denies fevers, chills, sweats, chest pain, palpitations, claudication, wheezing, nausea, vomiting, abdominal pain, dysuria, hematuria, urinary retention, paralysis, weakness, numbness and tingling. All Other Systems: Reviewed and Negative Medications Current Inpatient Medications Medications (Trade) Dose Ordered Sig/Sukhwinedr Route Start Time Stop Time Status Last Admin Dose Admin Acetaminophen (Tylenol Tab) 650 mg Q4H PRN PO 01/22/18 10:45 02/21/18 10:44 01/24/18 11:23 650 MG Al Hydrox/Mg Hydrox/Simethicone (Maalox Max Susp) 15 ml Q4H PRN PO 01/22/18 10:45 02/21/18 10:44 Magnesium Hydroxide (Milk Of Magnesia Susp) 30 ml Q12H PRN PO 01/22/18 10:45 02/21/18 10:44 Ondansetron HCl (Zofran Inj) 4 mg Q6H PRN IV 01/22/18 10:45 02/21/18 10:44 Polyethylene (Miralax Powder Packet) 17 gm DAILY PRN PO 01/22/18 10:45 02/21/18 10:44 Glucose (Glucose 40% Gel) 15-30 GRAMS 15 GRAMS... UD PRN PO 01/22/18 10:45 02/21/18 10:44 Glucose (Glucose Chew Tab) 4-8 Tablets 4 Tabl... UD PRN PO 01/22/18 10:45 02/21/18 10:44 Dextrose (Dextrose 50% 50ML Syringe) 25-50ML 25ML FOR ... UD PRN IV 01/22/18 10:45 02/21/18 10:44 Glucagon (Glucagon Inj) 1 mg UD PRN SQ 01/22/18 10:45 02/21/18 10:44 Carbohydrates (Carbohydrates For Hypoglycemia) 15-30 GRAMS 15 grams if BSG 54-69... UD PRN PO 01/22/18 10:45 02/21/18 10:44 Insulin Aspart (novoLOG ASPART) SLIDING SCALE G... ACHS SC 01/22/18 11:00 02/21/18 10:59 01/27/18 21:31 1 UNITS Albuterol (Ventolin Hfa Inhaler) 2 puffs Q4 PRN INH 01/22/18 10:45 02/21/18 10:44 Albuterol/ Ipratropium (Duoneb) 3 ml TID PRN INH 01/22/18 10:45 02/21/18 10:44 Levothyroxine Sodium (Synthroid Tab) 100 mcg DAILYBB PO 01/23/18 06:00 02/22/18 05:59 01/27/18 05:46 100 MCG Miconazole Nitrate (Desenex Powder) 1 appln DAILY PRN EXT 01/22/18 10:45 02/21/18 10:44 Oxcarbazepine (Trileptal Tab) 150 mg QAM PO 01/23/18 09:00 02/22/18 08:59 01/27/18 07:42 150 MG Oxcarbazepine (Trileptal Tab) 300 mg QPM PO 01/22/18 21:00 02/21/18 20:59 01/27/18 21:25 300 MG Simvastatin (Zocor Tab) 20 mg DAILY PO 01/23/18 09:00 02/22/18 08:59 01/27/18 07:42 20 MG Tamsulosin HCl (Flomax Cap) 0.4 mg BID PO 01/22/18 21:00 02/21/18 20:59 01/27/18 21:26 0.4 MG Finasteride (Proscar Tab) 5 mg QAM PO 01/23/18 09:00 02/22/18 08:59 01/27/18 07:42 5 MG Ferrous Sulfate (Feosol Tab) 325 mg QAM PO 01/23/18 09:00 02/22/18 08:59 01/27/18 07:42 325 MG Fluconazole (Diflucan Tab) 100 mg QAM PO 01/23/18 09:00 02/02/18 08:59 01/27/18 07:42 100 MG Furosemide 80 mg/ Syringe 8 ml @ 4 mls/min BID IV 01/23/18 13:00 02/22/18 12:59 01/27/18 21:24 4 MLS/MIN Calcitriol (Rocaltrol Cap) 0.25 mcg TuThSa@0900 PO 01/24/18 09:45 02/23/18 09:44 01/26/18 08:36 0.25 MCG Warfarin Sodium (Coumadin Tab) 5 mg SuTuWeThSa@1600 PO 01/24/18 16:00 02/23/18 15:59 Future hold 01/24/18 16:45 5 MG Warfarin Sodium (Coumadin Tab) 2.5 mg MoFr@1600 PO 01/25/18 16:00 02/24/18 15:59 01/25/18 16:40 2.5 MG Potassium Chloride (Klor-Con Tab) 20 meq BID PO 01/27/18 21:00 01/28/18 21:01 01/27/18 21:26 20 MEQ Objective Vital Signs Date Time Temp Pulse Resp B/P (MAP) Pulse Ox O2 Delivery O2 Flow Rate FiO2 01/27/18 20:05 34.5 49 16 137/62 (87) 91 Nasal Cannula 4.0 01/27/18 16:00 Nasal Cannula 3.0 01/27/18 15:17 34.6 50 20 146/54 (84) 100 BiPAP 01/27/18 14:30 47 99 35 01/27/18 12:03 Nasal Cannula 3.0 01/27/18 10:59 51 99 35 01/27/18 10:08 36.4 56 20 119/61 (80) 97 Nasal Cannula 4.0 01/27/18 08:08 Nasal Cannula 3.0 01/27/18 07:22 36.4 55 20 150/60 (90) 97 Nasal Cannula 4.0 01/27/18 04:00 Nasal Cannula 2.0 01/27/18 03:43 35.5 55 18 116/52 (73) 97 01/27/18 00:08 34.9 54 18 143/70 (94) 95 4.0 01/26/18 23:59 Nasal Cannula 2.0 Physical Exam Comments: General Appearance: no apparent distress, + obese Head: normocephalic, atraumatic Eyes: normal inspection, sclerae normal ENT: normal ENT inspection, pharynx normal Neck: + pertinent finding (thick, supple, increased JVP) Respiratory/Chest: no respiratory distress, no accessory muscle use, + decreased breath sounds, + rales Cardiovascular: no gallop, + bradycardia Abdomen/GI: non tender, soft, + distended Extremities/Musculoskelatal: no calf tenderness, + pedal edema Neurologic/Psych: alert, + Laboratory Results Last 24 Hours Test 01/27/18 05:21 01/27/18 07:20 01/27/18 11:19 01/27/18 16:24 Prothrombin Time 45.3 SECONDS Prothromb Time International Ratio 4.4 Sodium Level 143 mmol/L Potassium Level 3.4 mmol/L Chloride Level 108 mmol/L Carbon Dioxide Level 25 mmol/L Anion Gap 11.0 mmol/L Blood Urea Nitrogen 115 mg/dl Creatinine 3.18 mg/dl Est Creatinine Clear Calc Drug Dose 25.6 ml/min Estimated GFR () 20.0 Estimated GFR (Non- 17.2 BUN/Creatinine Ratio 36.0 Random Glucose 101 mg/dl Calcium Level 8.0 mg/dl Phosphorus Level 5.8 mg/dl Albumin 2.7 gm/dl Bedside Glucose 111 mg/dl 142 mg/dl 139 mg/dl Test 01/27/18 20:54 Bedside Glucose 183 mg/dl Assessment and Plan 82 y/o male with a history of CAD, h/o [place] s/p CABG x 2 2007, HTN, HLD, chronic diastolic CHF, a-fib, COPD, DM II with neuropathy, hypothyroidism, JACEK, CKD stage III-IV, lymphedema, EVENS, and urinary retention who presented to the ED on 01/22 with weakness and increased shortness of breath x 1 week. Pt hypothermic on arrival with temperature of 34.0C rectally. Pt bradycardic but otherwise VSS. CXR shows mild pulmonary edema and trace effusions. EKG no ischemic changes. INR supratherapeutic at 6.2. Creatinine elevated above baseline at 3.10. Lactic acid WNL. LFTs elevated above baseline. Pt received vanc, Zosyn and IVF in ED. Possible sepsis, found with UTI likely related to chronic Mckeon--stable -Admitted to telemetry. No acute events overnight. Pt in a-fib, HR 50s-60s -Pt has not had any further specific s/s of infection. Will d/c empiric vanc and Zosyn and monitor response off abx -1 of 2 blood cultures positive for coag negative staph, not lugdunensis, likely contamination -Flu swab negative -UA positive for yeast, urine culture positive for yeast not monty albicans -Continue Diflucan 100 mg PO qd, day #6 -stopped antibiotics -will continue to monitor Bradycardia, hypothermia unsure as to the cause. will repeat thyroid levels tomorrow. Acute on chronic diastolic CHF--improving -Mild edema on CXR, BNP elevated -Pt reports dry weight is 320 lb -Continue Lasix 80 mg IV BID -Fluid restriction 1500 mL -Daily weights, monitor I's & O's -Net balance -3400 on 01/27 Not much urine output in past 24 hours, hwoever he remains edematous. Nephro states though patient does not require HD at this time. SOB due to above problem Will place patient on BIPAP. C-xray shows pulmonary edema. CARLO on CKD stage III-IV--worsening -Baseline creatinine 1.7-2.0 -Creatinine 3.31 on 01/25, now down to 3.18 -Consult nephrology, appreciate recs: Continue Lasix with aim of negative balance 1L per day. Continue calcitriol 3x/week. If no significant improvement over weekend, may need to consider renal replacement therapy sooner rather than later, possibly early next week. CAD, h/o GA, CABG, HTN, HLD--stable -Continue Zocor 20 mg PO qd A-fib, supratherapeutic INR-- -ordered vit k as this is likely from diflucan. -Continue warfarin 5 mg PO ///Sa/Bella, 2.5 mg PO M/F COPD--no wheezing appreciated -Continue prn DuoNeb, albuterol inhaler DM II w/neuropathy--last HgbA1c 7.1 on 11/14/17 -Hold 70/30 -Insulin sliding scale -Check BSGs q ac and qhs -Continue Trileptal 150 mg PO qam and 300 mg PO hs Hypothyroidism -TSH 5.25, recheck in 4-6 weeks after acute illness resolved -Continue Synthroid 100 mcg PO qd JACEK--stable -Hgb remains stable -Continue ferrous sulfate -Iron and transferrin low, TIBC WNL -Epogen x 1 on 01/24 EVENS -Pt may use own CPAP w/2L NC at night Urinary retention -Continue Flomax BID and Mckeon -Convert Avodart to Proscar 5 mg PO qd DVT prophylaxis -Warfarin -SARBJIT lora and SCDs Code Status -Level III, -Pt states he wants CPR, but does not want intubation or defibrillation.
[2018-01-28] VITALS (9 sets, daily range): BP systolic 81–124; BP diastolic 34–76; PULSE 47–84; TEMP 35.9–37; O2SAT 93–100
[2018-01-28] MEDS: LEVOTHYROXINE 100 MCG TAB PO SCH (05:21)
[2018-01-28 05:57] LABS: HEMOGLOBIN 9.4 g/dL (14.0-18.0); MEAN CELL VOLUME 101.8 fL (80-100); MEAN CORPUSCULAR HGB CONC 32.4 g/dl (32-36); RED CELL DISTRIBUTION WIDTH CV 17.8 % (11.5-14.5); RED CELL DISTRIBUTION WIDTH SD 65.6 fL (36.4-46.3); WHITE BLOOD COUNT 4.73 K/uL (4.8-10.8)
[2018-01-28 06:05] LABS: MEAN PLATELET VOLUME 9.6 fL (7.4-10.4); PLATELET COUNT 72 K/uL (130-400)
[2018-01-28 06:14] LABS: ALBUMIN 2.6 gm/dl (3.4-5.0); CREATININE 3.27 mg/dl (0.60-1.40); POTASSIUM 3.8 mmol/L (3.5-5.1)
[2018-01-28 06:17] LABS: INR 3.9 (0.9-1.1)
[2018-01-28 06:24] LABS: PHOSPHORUS 6.5 mg/dl (2.5-4.9)
[2018-01-28] MEDS: INSULIN ASPART 100 UNITS/ML 3 ML PEN SC SCH ×4 (07:00→21:27)
[2018-01-28] MEDS ORDERED: PHYTONADIONE 5 MG TAB PO ONE (08:30)
--- NOTE | 2018-01-28 08:37 | Progress Note ---
Subjective Date of Service: January 28, 2018. Subjective I was called to urgently evaluate the patient this morning due to low blood pressure and temp, the pt was groggy this am and otherwise not his usual according the a nurse who had cared for him the last two days. Upon my arrival the pt was eating ceral, cutting a banana with a knife, he appeared with mild respiratory distress and using abdominal muscles to breath. He was alert and oriented Problem List Medical Problems: (1) Bleeding from PICC line Status: Acute (2) Cellulitis of left lower extremity Status: Acute (3) Chronic kidney disease Status: Acute (4) Dyspnea Status: Acute (5) Facial abrasion Status: Acute (6) Failure of outpatient treatment Status: Acute (7) Fever Status: Acute (8) Fever Status: Acute (9) Fever Status: Acute (10) Hypoxia Status: Acute (11) Lactic acid acidosis Status: Acute (12) Leukocytosis Status: Acute (13) Leukocytosis Status: Acute (14) Pneumonia Status: Acute (15) Renal failure Status: Acute (16) Sepsis Status: Acute (17) Sepsis Status: Acute (18) UTI (urinary tract infection) Status: Acute (19) UTI (urinary tract infection) Status: Acute (20) Weakness Status: Acute Review of Systems Constitutional: + weakness, + fatigue, No fever, No chills Respiratory: + shortness of breath, + dyspnea on exertion, No cough Cardiac: + orthopnea, + edema, No chest pain, No PND Abdomen: No pain, No nausea, No vomiting, No diarrhea Musculoskeletal: + swelling, No joint pain, No muscle pain Male : + incontinence, No dysuria Neurologic: + weakness, No memory loss Psychiatric: + depression symptoms, No anxiety Endo: + fatigue Objective Vital Signs Date Time Temp Pulse Resp B/P (MAP) Pulse Ox O2 Delivery O2 Flow Rate FiO2 01/28/18 07:35 37.0 47 18 82/34 (50) 93 01/28/18 04:00 Nasal Cannula 4.0 01/28/18 03:46 47 12 96/56 (69) 100 01/28/18 00:11 35.9 48 18 121/53 (75) 93 01/27/18 23:59 Nasal Cannula 4.0 01/27/18 20:05 34.5 49 16 137/62 (87) 91 Nasal Cannula 4.0 01/27/18 20:00 Nasal Cannula 4.0 01/27/18 16:00 Nasal Cannula 3.0 01/27/18 15:17 34.6 50 20 146/54 (84) 100 BiPAP 01/27/18 14:30 47 99 35 01/27/18 12:03 Nasal Cannula 3.0 01/27/18 10:59 51 99 35 01/27/18 10:08 36.4 56 20 119/61 (80) 97 Nasal Cannula 4.0 Physical Exam General Appearance: WD/WN, + obese Eyes: normal inspection, sclerae normal Neck: supple, trachea midline Respiratory/Chest: + decreased breath sounds, + accessory muscle use, + rales Cardiovascular: no murmur, + bradycardia Abdomen: soft, + distended Extremities: + pedal edema, + swelling Neurologic/Psychiatric: alert, oriented x 3 Skin: + pertinent finding (pt has erythema to arms) Laboratory Results Last 24 Hours Test 01/27/18 11:19 01/27/18 16:24 01/27/18 20:54 01/28/18 05:31 Bedside Glucose 142 mg/dl 139 mg/dl 183 mg/dl White Blood Count 4.73 K/uL Red Blood Count 2.85 M/uL Hemoglobin 9.4 g/dL Hematocrit 29.0 % Mean Corpuscular Volume 101.8 fL Mean Corpuscular Hemoglobin 33.0 pg Mean Corpuscular Hemoglobin Concent 32.4 g/dl RDW Standard Deviation 65.6 fL RDW Coefficient of Variation 17.8 % Platelet Count 72 K/uL Mean Platelet Volume 9.6 fL Erythrocyte Sedimentation Rate 17 mm/hr Prothrombin Time 40.2 SECONDS Prothromb Time International Ratio 3.9 Sodium Level 144 mmol/L Potassium Level 3.8 mmol/L Chloride Level 109 mmol/L Carbon Dioxide Level 26 mmol/L Anion Gap 9.0 mmol/L Blood Urea Nitrogen 116 mg/dl Creatinine 3.27 mg/dl Est Creatinine Clear Calc Drug Dose 24.3 ml/min Estimated GFR () 19.3 Estimated GFR (Non- 16.7 BUN/Creatinine Ratio 35.5 Random Glucose 111 mg/dl Calcium Level 8.0 mg/dl Phosphorus Level 6.5 mg/dl Magnesium Level 2.9 mg/dl C-Reactive Protein 1.46 mg/dl Albumin 2.6 gm/dl Thyroid Stimulating Hormone (TSH) 4.750 uIu/ml Free Thyroxine 0.53 ng/dl Test 01/28/18 07:17 Bedside Glucose 120 mg/dl Assessment and Plan 82 y/o male presented with Hypothermia and SOB, with indweling rucker cath for urinary outlet obstructio, has a history of CAD, h/o [place] s/p CABG x 2 2007, HTN, HLD, chronic diastolic CHF, a-fib, COPD, DM II with neuropathy, hypothyroidism, JACEK, CKD stage III-IV, lymphedema, EVENS, and urinary retention Possible sepsis, UTI poa chronic Rucker -1 of 2 blood cultures positive for coag negative staph, not lugdunensis, likely contamination -UA positive for yeast, urine culture positive for yeast not monty albicans -Continue Diflucan 100 mg PO qd, Bradycardia, hypothermia, history of Afib on Anticoagulation, did have high TSH and low T4 on presentation and is no thyroid supplementation, pt states he is taking his meds, will give IV synthroid and restart his usual 100mcg synthroid Coagulopathy from coumadin, additional Vitamin K given 01/28 follow INR while holding Coumadin Acute on chronic diastolic CHF in the face of CKD4 -Continue Lasix 80 mg IV BID -Fluid restriction 1500 mL Nephrology is following pt Acute respiratory distress with hypoxia, likely from diastolic heart failure, obesity also influences work of breathing will use Cpap hs CARLO on CKD stage III-IV--worsening -Baseline creatinine 1.7-2.0, pulmonary status mandates diuresis, continue Calcitrol CAD, h/o HI, CABG, HTN, HLD--given overall ill state and elevated INR will hold statin A-fib, remains bradycardic COPD--only requiring prn DuoNeb, albuterol inhaler DM II w/neuropathy--last HgbA1c 7.1 on 11/14/17 -Hold 70/30-Insulin sliding scale -Continue Trileptal 150 mg PO qam and 300 mg PO hs JACEK--stable ferrous sulfate, Epogen x 1 on 01/24 EVENS CPAP w/2L NC at night Urinary retention rucker Flomax BID converted Avodart to Proscar 5 mg PO qd DVT prophylaxis-SARBJIT shahriare and SCDs Code Status -Level III, -Pt states he wants CPR, but does not want intubation or defibrillation.
[2018-01-28] MEDS ORDERED: LEVOTHYROXINE SODIUM INJ 25 MCG in SYRINGE 0 ML IV SCH (09:00)
[2018-01-28] MEDS ORDERED: LEVOTHYROXINE SODIUM INJ 25 MCG in SYRINGE 0 ML IV ONE (09:00)
[2018-01-28] MEDS: FINASTERIDE 5 MG TAB PO SCH (09:03)
[2018-01-28] MEDS: FLUCONAZOLE 100 MG TAB PO SCH (09:03)
[2018-01-28] MEDS: POTASSIUM CHLORIDE 20 MEQ TABCR PO SCH ×2 (09:04→21:27)
[2018-01-28] MEDS: TAMSULOSIN HCL 0.4 MG CAP PO SCH ×2 (09:04→21:27)
[2018-01-28] MEDS: FERROUS SULFATE 325 MG TAB PO SCH (09:04)
[2018-01-28] MEDS: OXCARBAZEPINE 150 MG TAB PO SCH ×2 (09:04→21:28)
--- NOTE | 2018-01-28 09:24 | Nephrology Progress Note ---
Nephrology Progress Note Date of Service January 28, 2018. Chief Complaint CARLO Subjective Ernesto remains hypothermic and bradycardic. Urine output remains decreased over past 48 hours limiting effective diuresis. Blood pressure dropped overnight. IV thyroid replacement initiated. Ernesto is very lethargic this morning. He denies any complaints but is very despondent. Tolerated CPAP overnight. Review of Systems A complete review of systems was performed. Pertinent positives are noted above. All other systems are negative. Vital Signs Last 8 Hrs Date Time Temp Pulse Resp B/P (MAP) Pulse Ox O2 Delivery O2 Flow Rate FiO2 01/28/18 07:59 47 16 95/69 (78) 93 01/28/18 07:45 84 15 81/40 (54) 95 01/28/18 07:35 37.0 47 18 82/34 (50) 93 01/28/18 04:00 Nasal Cannula 4.0 01/28/18 03:46 47 12 96/56 (69) 100 Last Recorded Weight Weight (Kilograms): 144.400 Physical Exam General Appearance: + mild distress, + obese Head: normocephalic, atraumatic Eyes: normal inspection, sclerae normal ENT: normal ENT inspection, pharynx normal, + pertinent finding (O2 NC) Neck: supple, + JVD Respiratory/Chest: + respiratory distress (mildly increased work of breathing) , + decreased breath sounds, + rales Cardiovascular: + bradycardia, + systolic murmur, + irregularly irregular Abdomen/GI: non tender, soft Genitourinary - Male: + pertinent finding (Mckeon draining clear yellow urine) Extremities/Musculoskelatal: + pertinent finding (generalized edema) Neurologic/Psych: alert, + depressed affect Family History FH: diabetes mellitus FH: hypertension Myocardial infarction No family history of chronic kidney disease or end-stage renal disease. 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 Laboratory Results Past 24 Hours 01/28/18 05:31 01/28/18 05:31 Test 01/27/18 11:19 01/27/18 16:24 01/27/18 20:54 01/28/18 05:31 Bedside Glucose 142 mg/dl (70-99) 139 mg/dl (70-99) 183 mg/dl (70-99) Red Blood Count 2.85 M/uL (4.7-6.1) Mean Corpuscular Volume 101.8 fL (80-100) Mean Corpuscular Hemoglobin 33.0 pg (25-34) Mean Corpuscular Hemoglobin Concent 32.4 g/dl (32-36) RDW Standard Deviation 65.6 fL (36.4-46.3) RDW Coefficient of Variation 17.8 % (11.5-14.5) Mean Platelet Volume 9.6 fL (7.4-10.4) Erythrocyte Sedimentation Rate 17 mm/hr (0-14) Prothrombin Time 40.2 SECONDS (9.0-12.0) Prothromb Time International Ratio 3.9 (0.9-1.1) Anion Gap 9.0 mmol/L (3-11) Est Creatinine Clear Calc Drug Dose 24.3 ml/min Estimated GFR () 19.3 Estimated GFR (Non- 16.7 BUN/Creatinine Ratio 35.5 (10-20) Calcium Level 8.0 mg/dl (8.5-10.1) Phosphorus Level 6.5 mg/dl (2.5-4.9) Magnesium Level 2.9 mg/dl (1.8-2.4) C-Reactive Protein 1.46 mg/dl (0-0.29) Albumin 2.6 gm/dl (3.4-5.0) Thyroid Stimulating Hormone (TSH) 4.750 uIu/ml (0.300-4.500) Free Thyroxine 0.53 ng/dl (0.80-1.60) Test 01/28/18 07:17 Bedside Glucose 120 mg/dl (70-99) Allergies Coded Allergies: Amoxicillin (Unverified Allergy, Unknown, ., 01/22/18) CI Pigment Blue 63 (Unverified Allergy, Unknown, ., 01/22/18) Duloxetine (Unverified Allergy, Unknown, ., 01/22/18) Gabapentin (Unverified Allergy, Unknown, ., 01/22/18) Nitrofurantoin (Unverified Allergy, Unknown, ., 01/22/18) Pregabalin (Unverified Allergy, Unknown, ., 01/22/18) Chlorpheniramine (Verified Adverse Reaction, Intermediate, "CAUSE PROSTATE TO ENLARGE", 01/22/18) Linezolid (Verified Adverse Reaction, Intermediate, GI SYMPTOMS, 01/22/18) Concommitant GI bleed Phenylpropanolamine (Verified Adverse Reaction, Intermediate, "CAUSE PROSTATE TO ENLARGE"., 01/22/18) Medications Current Inpatient Medications Medications (Trade) Dose Ordered Sig/Sukhwinder Route Start Time Stop Time Status Last Admin Dose Admin Acetaminophen (Tylenol Tab) 650 mg Q4H PRN PO 01/22/18 10:45 02/21/18 10:44 01/24/18 11:23 650 MG Al Hydrox/Mg Hydrox/Simethicone (Maalox Max Susp) 15 ml Q4H PRN PO 01/22/18 10:45 02/21/18 10:44 Magnesium Hydroxide (Milk Of Magnesia Susp) 30 ml Q12H PRN PO 01/22/18 10:45 02/21/18 10:44 Ondansetron HCl (Zofran Inj) 4 mg Q6H PRN IV 01/22/18 10:45 02/21/18 10:44 Polyethylene (Miralax Powder Packet) 17 gm DAILY PRN PO 01/22/18 10:45 02/21/18 10:44 Glucose (Glucose 40% Gel) 15-30 GRAMS 15 GRAMS... UD PRN PO 01/22/18 10:45 02/21/18 10:44 Glucose (Glucose Chew Tab) 4-8 Tablets 4 Tabl... UD PRN PO 01/22/18 10:45 02/21/18 10:44 Dextrose (Dextrose 50% 50ML Syringe) 25-50ML 25ML FOR ... UD PRN IV 01/22/18 10:45 02/21/18 10:44 Glucagon (Glucagon Inj) 1 mg UD PRN SQ 01/22/18 10:45 02/21/18 10:44 Carbohydrates (Carbohydrates For Hypoglycemia) 15-30 GRAMS 15 grams if BSG 54-69... UD PRN PO 01/22/18 10:45 02/21/18 10:44 Insulin Aspart (novoLOG ASPART) SLIDING SCALE G... ACHS SC 01/22/18 11:00 02/21/18 10:59 01/27/18 21:31 1 UNITS Albuterol (Ventolin Hfa Inhaler) 2 puffs Q4 PRN INH 01/22/18 10:45 02/21/18 10:44 Albuterol/ Ipratropium (Duoneb) 3 ml TID PRN INH 01/22/18 10:45 02/21/18 10:44 Levothyroxine Sodium (Synthroid Tab) 100 mcg DAILYBB PO 01/23/18 06:00 02/22/18 05:59 Future hold 01/28/18 05:21 100 MCG Miconazole Nitrate (Desenex Powder) 1 appln DAILY PRN EXT 01/22/18 10:45 02/21/18 10:44 Oxcarbazepine (Trileptal Tab) 150 mg QAM PO 01/23/18 09:00 02/22/18 08:59 01/27/18 07:42 150 MG Oxcarbazepine (Trileptal Tab) 300 mg QPM PO 01/22/18 21:00 02/21/18 20:59 01/27/18 21:25 300 MG Simvastatin (Zocor Tab) 20 mg DAILY PO 01/23/18 09:00 02/22/18 08:59 Future Hold 01/27/18 07:42 20 MG Tamsulosin HCl (Flomax Cap) 0.4 mg BID PO 01/22/18 21:00 02/21/18 20:59 01/27/18 21:26 0.4 MG Finasteride (Proscar Tab) 5 mg QAM PO 01/23/18 09:00 02/22/18 08:59 01/27/18 07:42 5 MG Ferrous Sulfate (Feosol Tab) 325 mg QAM PO 01/23/18 09:00 02/22/18 08:59 Future hold 01/27/18 07:42 325 MG Fluconazole (Diflucan Tab) 100 mg QAM PO 01/23/18 09:00 02/02/18 08:59 01/27/18 07:42 100 MG Furosemide 80 mg/ Syringe 8 ml @ 4 mls/min BID IV 01/23/18 13:00 02/22/18 12:59 01/27/18 21:24 4 MLS/MIN Calcitriol (Rocaltrol Cap) 0.25 mcg TuThSa@0900 PO 01/24/18 09:45 02/23/18 09:44 01/26/18 08:36 0.25 MCG Warfarin Sodium (Coumadin Tab) 5 mg SuTuWeThSa@1600 PO 01/24/18 16:00 02/23/18 15:59 Future Hold 01/24/18 16:45 5 MG Warfarin Sodium (Coumadin Tab) 2.5 mg MoFr@1600 PO 01/25/18 16:00 02/24/18 15:59 Future Hold 01/25/18 16:40 2.5 MG Potassium Chloride (Klor-Con Tab) 20 meq BID PO 01/27/18 21:00 01/28/18 21:01 01/27/18 21:26 20 MEQ Chlorothiazide Sodium 500 mg/ Dextrose 68 ml @ 200 mls/hr NOW IV 01/28/18 09:15 02/27/18 09:14 UNV Impression (1) Acute kidney injury (2) Chronic kidney disease (3) Weakness (4) Anemia (5) BPH (benign prostatic hyperplasia) (6) CHF (congestive heart failure) (7) Hypertension (8) Secondary hyperparathyroidism of renal origin Mr. Avery is an 82-year-old male with CKD IV (baseline creatinine of 1.5-2.0) with multiple episodes of CARLO. Medical history is notable for CHF with right-sided heart failure and severe pulmonary hypertension , COPD, a recent history of osteomyelitis/bacteremia with osteomyelitis in the foot and infected sternal hardware. The patient has a bioprosthetic valve and was treated with an extended course of antibiotics following diagnosis of bacteremia in March. Chad has atrial fibrillation with chronic bradycardia despite no chronotropic medications. Chad was admitted to the hospital with worsening shortness of breath and generalized weakness. He was found to have significant volume overload with CHF exacerbation and acute on chronic renal insufficiency. Recommendations CARLO/CKD: -- Metabolic profile acceptable -- Creatinine stable -- No current indication for [employer] -- Given hemodynamic status, patient may not tolerate dialysis. I have expressed my concerns in this regard to Ernesto. His current status is guarded. I continue to favor diuretics but if unable to encourage appropriate urine output , Ernesto continues to advocate for starting UF via HD. Acute on chronic diastolic CHF/pulmonary hypertension/R heart failure: -- Increase furosemide to 120 mg this AM and add 500 mg IV Diuril -- If no significant response to diuretics, start Bumex gtt -- Consult cardiology to assist with complex cardiovascular disease, especially given notable chronic bradycardia in the setting of persistent atrial fibrillation. Narrow complex but would ask specifically if there may be benefit to chronotropic support. Patient continues to have ventricular ectopy, escape beats. -- Unclear if underlying pulmonary hypertension would benefit from any adjuvant therapy. Anemia: -- Epogen 10183 units x1 dose on 01/24/18, CKD/MBD: -- Calcitriol 0.25 micrograms 3 times a week ROPER/BPH: -- Chronic indwelling Mckeon Hypothyroidism: -- IV replacement initiated overnight
[2018-01-28] MEDS ORDERED: CHLOROTHIAZIDE INJ 500 MG in DEXTROSE 5% 50ML 50 ML IV ONE (10:00)
--- NOTE | 2018-01-28 10:01 | DIAGNOSTIC IMAGING REPORT ---
CHEST ONE VIEW PORTABLE HISTORY: 82 years-old Male eval for heart failure acute shortness of breath COMPARISON: Chest radiograph 01/26/2018 TECHNIQUE: Portable AP view of the chest FINDINGS: Cardiac silhouette is moderately enlarged. Atherosclerosis of the aorta. Fixation hardware of the sternum redemonstrated. No pneumothorax. Trace bilateral pleural effusions with mild pulmonary edema persists. There are mildly worsened left perihilar and left basilar opacities. Trace fluid layers along the minor fissure. Degenerative changes of the shoulders and spine. IMPRESSION: 1. Cardiomegaly with persistent pulmonary edema. 2. Trace pleural effusions with bibasilar opacities, mildly progressed within the left basilar and left perihilar distributions. The above report was generated using voice recognition software. It may contain grammatical, syntax or spelling errors. Electronically signed by: Juan Pablo Murphy M.D. 01/28/2018 10:00 AM Dictated Date/Time: 01/28/2018 9:58 AM
--- NOTE | 2018-01-28 14:26 | CARDIOLOGY CONSULTATION REPORT ---
DATE OF CONSULTATION: 01/28/2018 REASON FOR CONSULTATION: 1. Chronic Atrial Fibrillation with Bradycardic Ventricular Response Rate. 2. Severe Pulmonary Hypertension. HISTORY OF PRESENT ILLNESS: Mr. Avery is an obese 82-year-old white male with a history of Chronic Atrial Fibrillation (rate has always been well controlled despite no negative chronotropic medications), CAD s/p CABG x 2 vessels 2007, Aortic Stenosis s/p Bioprosthetic AVR in 2007, Hypertension, Dyslipidemia , Severe Pulmonary Hypertension, Obstructive Sleep Apnea, Diabetes mellitus, Asthma, Right-Sided CHF, Mild Mitral Stenosis, Moderate Tricuspid Regurgitation, and Hypothyroidism who presented acutely to [facility] on 01/22/2018, complaining of progressive shortness of breath, non-intentional weight gain (patient states that he gained about 20-30 pounds over the preceding month), worsening edema, and generalized weakness. On the day of admission, he had difficulty getting up by himself or even with his 's help. The patient was noticed to have pulmonary edema on chest x-ray with a mildly elevated proBNP. The patient has had a negative fluid balance of 3471 mL total and his body weight is down 10.1 kg since admission. He feels better now than he did upon admission, but still gets dyspneic with minimal activity and remains markedly edematous. The patient has an elevated TSH level with T4 level and started receiving IV Synthroid as of yesterday. He remains hypothermic and relatively low blood pressure and heart rates during this hospitalization. Additionally, his renal function continues to fluctuate. He is hypermagnesemic and anemic. The patient offers no other complaints. He denies any chest pain, heaviness, tightness, pressure, or chest discomfort. He denies any angina pectoris. He typically sleeps with himself propped up and he wears CPAP at night. He denies any palpitations, syncope, or near syncope. MEDICATIONS: 1. Lasix 120 mg IV b.i.d. 2. Diuril 500 mg IV (amount to be started). 3. KCl 20 mEq b.i.d. 4. Warfarin (currently on hold). 5. Rocaltrol 0.25 mcg every Sunday, , and Sunday. 6. Trileptal 150 mg each morning, 300 mg each evening. 7. Finasteride 5 mg daily. 8. Feosol 325 mg daily. 9. Diflucan 100 mg daily. 10. Levothyroxine 100 mcg daily. 11. Flomax 0.4 mg b.i.d. 12. NovoLog sliding scale insulin. 13. Tylenol p.r.n. 14. Maalox Max p.r.n. 15. Milk of magnesia p.r.n. 16. MiraLax 17 mg daily as needed for constipation. 17. Ventolin HFA 2 puffs p.o. q. 4 hours p.r.n. for shortness of breathing or wheezing. 18. DuoNeb nebulizers t.i.d. p.r.n. for shortness of breath. 19. Desenex powder apply daily as needed. ALLERGIES: 1. AMOXICILLIN. 2. CI PIGMENT BLUE 63. 3. DULOXETIN. 4. GABAPENTIN. 5. NITROFURANTOIN. 6. PREGABALIN. 7. CHLORPHENIRAMINE. 8. LINEZOLID. 9. PHENYLPROPANOLAMINE. PAST MEDICAL HISTORY: 1. Chronic kidney disease. 2. Longstanding hypertension. 3. Obesity. 4. Dyslipidemia. 5. Obstructive sleep apnea. 6. Asthma. 7. Type 2 diabetes mellitus. 8. Severe pulmonary hypertension. 9. Hypothyroidism. 10. Chronic atrial fibrillation with controlled ventricular response rate. 11. History of aortic valve disease status post bioprosthetic AVR in 2007. 12. CAD status post CABG x2 vessels in 2007. 13. History of right-sided heart failure. 14. Mild TR. 15. Mild mitral stenosis. 16. Most recent echocardiogram 12/25/2017 showed an LVEF of 65% with average wall motion abnormalities, mildly dilated right ventricle with normal RV systolic function, mild mitral stenosis, moderate tricuspid regurgitation, and severe pulmonary hypertension. 17. Chronic anemia. 18. History of hypoxia. 19. Currently hypoalbuminemic. 20. Secondary hyperparathyroidism. 21. History of sepsis. 22. History of enlarged prostate. 23. Obstructive sleep apnea, on CPAP. 24. COPD. 25. History of CHF with preserved LV systolic function. 26. Dyslipidemia. 27. History of lactic acidosis. 28. History of metabolic acidosis. 29. History of MRSA bacteremia. 30. History of osteomyelitis, left foot. 31. Diabetic neuropathy. 32. History of pneumonia. FAMILY HISTORY: Significant for diabetes mellitus and hypertension as well as CAD. SOCIAL HISTORY: Patient is , lives with his in [place], [place]. He is a lifelong nonsmoker, retired from work. PHYSICAL EXAMINATION: VITAL SIGNS: Temperature 37 degrees Celsius axillary, pulse is 52 and slightly irregular, respiratory rate is 18 and slightly labored, blood pressure is 95/69, SpO2 is 93% on 4 L oxygen via nasal cannula. GENERAL: The patient in mild respiratory distress. He is interactive. HEENT: Head is atraumatic, normocephalic. EOMs intact. Sclerae anicteric. Face is symmetric. No periorbital cyanosis. NECK: With JVD noted. Jugular venous pressure appears to be to the angle of the jaw. Carotid upstrokes +2 bilaterally without bruits. CHEST AND LUNGS: With bibasilar crackles, occasional scattered wheezes throughout. CARDIOVASCULAR: S1 and S2 are slightly irregular, distant, with a grade 1/6 basal systolic murmur, grade 2/6 apical systolic murmur. No diastolic murmurs appreciated. No obvious gallops or rubs. PMI is nonpalpable. No lifts, heaves, or thrills. No abdominal aortic or renal bruits. ABDOMEN: Appears distended. Nontender to palpation. He does have pitting edema to the flanks bilaterally. EXTREMITIES: With +2 pitting edema to the left distal thigh, +1 pitting edema to his lower abdomen and flanks. NEUROLOGIC: Patient is awake, alert, and interactive. He answers questions appropriately. Speech is clear. Normal movement, bilateral upper extremities. Gait pattern, not assessed. Current telemetry monitoring reveals atrial fibrillation with a ventricular response rate of approximately 48 beats per minute, occasional PVCs, and a nonspecific IVCD. EKG on admission shows atrial fibrillation with a ventricular response rate of 52 beats per minute with a nonspecific intraventricular conduction delay. LABORATORIES: White blood cell count is 4.73, hemoglobin 9.4 g/dL, hematocrit 29.0%, platelet count is 72,000. Erythrocyte sedimentation rate is elevated at 17 mm per hour. Sodium is 144 mmoL/L, potassium 3.8 mmoL/L, BUN 116 mg/dL, creatinine 3.27 mg/dL, random glucose 120 mg/dL. Phosphorus level elevated at 6.5, magnesium level elevated at 2.9 mg/dL. ALT is elevated at 61 units per liter with an AST of 37 units per liter. Total CK is 155 units per liter with a CKMB of 13.3 ng/mL (representing a 8.6% of total CK), troponin I on admission 0.034 ng/mL. Total protein level is 6.4 g/dL with an albumin level of 2.6 g/dL. TSH elevated at 4.750 uIU/mL. Free T4 is decreased at 0.53 ng/dL. Blood culture is positive x1 for coag negative staph, second blood culture had no growth. Chest x-ray, 01/28/2018, shows cardiomegaly with persistent pulmonary edema, trace pleural effusions. Mildly progressed within left basilar and left perihilar distributions. ASSESSMENT: 1. Shortness of breath, peripheral edema, right-sided congestive heart failure. 2. Chronic atrial fibrillation with a slow ventricular response rate. 3. Hypermagnesemia. 4. Hypothyroidism. 5. Todjx-ma-tszyxst kidney disease. 6. CAD s/p CABG x 2 vessels in 2007. 7. Bioprosthetic AVR in 2007. 8. Hypertension. 9. Dyslipidemia. 10. Severe pulmonary hypertension. 11. Obstructive sleep apnea. 12. Chronic obstructive pulmonary disease. 13. Type 2 diabetes mellitus. 14. Diagnoses as mentioned above. PLAN: 1. Although the patient is somewhat bradycardic despite being in atrial fibrillation, he has been bradycardic in the past without evidence of CHF -- this may be a reflection of both hypothyroidism and hypermagnesemia. 2. Correct Hypothyroidism. Correct electrolyte disturbances. 3. Continue to monitor serum magnesium level. 4. Continue to monitor daily electrolytes and renal function. 5. Agree with IV Lasix for the time being; if no appreciable increase in urinary output, he will be converted to a Bumex drip. 6. Agree with Diuril 500 mg IV as prescribed by Nephrology. 7. Continue holding Warfarin for the time being until INR approaches lower end of therapeutic range. Then would restart at a lower dose pending his volume status. 8. There is no indication for pacemaker at this time. 9. Continue to closely monitor daily I&O's, body weights. 10. We will continue to follow throughout this hospitalization. Addendum by Cardiology attending: Patient seen and examined. Agree with above with following additions. He denies chest pain. He denies shortness of breath at the time of our meeting as well. There has been reported confusion on speaking with Dr. Dan of Nephrology. Dr. Dan met with family earlier this afternoon and apparently Mr. Avery as expressed his desire to return home and a palliative consult has been placed. History reviewed. Exam notable for: Generally: No acute distress. Alert. Neck: Thick. Cardiac: Irregularly irregular and bradycardic. Lungs: Clear. Extremities: 3+ bilateral lower extremity edema to the hips. One to 2+ pitting edema to the thorax. Weeping noted. No cyanosis. Echo 12/25/2017: Normal LV size, systolic function, wall motion. EF 65-70%. Appropriately functioning bioprosthetic aortic valve. Moderate TR. Right ventricle mildly dilated with normal systolic function, but not well visualized. Biatrial dilation. Severe pulmonary hypertension; RVSP 78mmHg. ASSESSMENT/PLAN: 1. Acute on chronic diastolic CHF/right heart failure: He appears to be significantly hypervolemic. Renal function complicating issues and dialysis is being discussed by Nephrology. Diuretics have been adjusted today by Nephrology. Apparently palliative care was also discussed by Nephrology. Attempt diuresis as able. 2. Atrial fibrillation: Permanent atrial fibrillation reported. He is bradycardic. No definite indication for pacemaker at this time. If he has shown to have in appropriate chronotropic response to exertion, and was symptoms , could then be considered for pacemaker placement if appropriate at that time. If he opts for palliative care, conservative management would be recommended. No urgent indication for pacemaker at this time. Avoid medications which may further slow his heart rate. 3. Bioprosthetic aortic valve: Appropriately functioning on outpatient echo performed last month. 4. Severe pulmonary hypertension: It is not clear what his pulmonary pressures would be if he reaches a euvolemic state. If he becomes euvolemic, recommend further evaluating. He has been evaluated by pulmonology for sleep apnea, COPD. 5. CAD status post CABG: He is status post CABG times to in 2007. No angina. Currently fully anticoagulated. No beta-jorge a secondary to bradycardia. As an outpatient, carvedilol 3.125 mg twice daily is listed as a medication. Can resume statin therapy if he does not opts for prior if Canner. 6. Bradycardia: Has above. Would not restart beta-jorge a therapy. He reportedly takes carvedilol as an outpatient. 7. Disposition: Cardiology will continue to follow. Thank you for allowing me to participate in the care of your patient. Please call for any other questions or concerns. Sincerely, Jatinder Segundo M.D. RAKESH
[2018-01-28] MEDS: BUMETANIDE IV 10 MG in DEXTROSE 5% 50ML 10 ML IV SCH (15:06)
[2018-01-28] MEDS ORDERED: FUROSEMIDE INJ 120 MG in SYRINGE 0 ML IV SCH (17:00)
[2018-01-29] MEDS: BUMETANIDE IV 10 MG in DEXTROSE 5% 50ML 10 ML IV SCH ×3 (01:00→19:18)
[2018-01-29 03:20] VITALS: BP 108/55; PULSE 50; O2SAT 100
[2018-01-29] MEDS: LEVOTHYROXINE 100 MCG TAB PO SCH (06:18)
[2018-01-29 06:34] LABS: HEMATOCRIT 27.5 % (42-52); HEMOGLOBIN 8.9 g/dL (14.0-18.0); MEAN CELL VOLUME 101.1 fL (80-100); MEAN CORPUSCULAR HEMOGLOBIN 32.7 pg (25-34); MEAN CORPUSCULAR HGB CONC 32.4 g/dl (32-36); NUCLEATED RED BLOOD CELL ABS 0.03 K/uL (0-0); RED CELL DISTRIBUTION WIDTH CV 17.8 % (11.5-14.5); RED CELL DISTRIBUTION WIDTH SD 63.8 fL (36.4-46.3)
[2018-01-29 06:35] LABS: MEAN PLATELET VOLUME 9.9 fL (7.4-10.4); PLATELET COUNT 81 K/uL (130-400)
[2018-01-29 06:45] LABS: INR 2.2 (0.9-1.1)
[2018-01-29 06:46] VITALS: BP 131/48; PULSE 55; TEMP 36.3; O2SAT 97
[2018-01-29 06:52] LABS: ALBUMIN 2.6 gm/dl (3.4-5.0); CALCIUM 8.1 mg/dl (8.5-10.1); CREATININE 3.51 mg/dl (0.60-1.40); POTASSIUM 4.3 mmol/L (3.5-5.1)
--- NOTE | 2018-01-29 07:37 | Progress Note ---
Subjective Date of Service: January 29, 2018. Subjective this pt is slightly more awake and alert, his family is at the bedside and later discussed POLST and DNR with palliative care. Continued attempts at diuresis will be had by nephrology Problem List Medical Problems: (1) Bleeding from PICC line Status: Acute (2) Cellulitis of left lower extremity Status: Acute (3) Chronic kidney disease Status: Acute (4) Dyspnea Status: Acute (5) Facial abrasion Status: Acute (6) Failure of outpatient treatment Status: Acute (7) Fever Status: Acute (8) Fever Status: Acute (9) Fever Status: Acute (10) Hypoxia Status: Acute (11) Lactic acid acidosis Status: Acute (12) Leukocytosis Status: Acute (13) Leukocytosis Status: Acute (14) Pneumonia Status: Acute (15) Renal failure Status: Acute (16) Sepsis Status: Acute (17) Sepsis Status: Acute (18) UTI (urinary tract infection) Status: Acute (19) UTI (urinary tract infection) Status: Acute (20) Weakness Status: Acute Review of Systems Constitutional: + weakness, + fatigue Respiratory: + shortness of breath, + dyspnea on exertion, No cough Cardiac: + edema, No chest pain Abdomen: No pain, No nausea, No vomiting, No diarrhea Neurologic: + memory loss, + weakness Psychiatric: + depression symptoms, + anhedonism Objective Vital Signs Date Time Temp Pulse Resp B/P (MAP) Pulse Ox O2 Delivery O2 Flow Rate FiO2 01/29/18 06:46 36.3 55 18 131/48 (75) 97 3.0 01/29/18 04:00 Nasal Cannula 4.0 01/29/18 03:20 50 16 108/55 (72) 100 01/28/18 23:59 Nasal Cannula 4.0 01/28/18 23:54 48 14 100/52 (68) 100 4.0 01/28/18 20:00 Nasal Cannula 4.0 01/28/18 19:05 36.1 48 13 113/55 (74) 99 Nasal Cannula 4.0 01/28/18 16:45 36.0 54 15 124/53 (76) 94 Nasal Cannula 4.0 01/28/18 16:00 Nasal Cannula 4.0 01/28/18 12:00 Nasal Cannula 4.0 01/28/18 11:45 36.5 50 20 120/76 (91) 94 5/14/18 08:00 Nasal Cannula 4.0 01/28/18 07:59 47 16 95/69 (78) 93 01/28/18 07:45 84 15 81/40 (54) 95 Physical Exam General Appearance: + mild distress, + obese Eyes: normal inspection, sclerae normal Neck: supple, + JVD Respiratory/Chest: + respiratory distress, + decreased breath sounds Cardiovascular: no murmur, + bradycardia Abdomen: normal bowel sounds, non tender, soft Extremities: + pedal edema, + swelling Neurologic/Psychiatric: alert, oriented x 3 Skin: normal color, warm/dry Laboratory Results Last 24 Hours Test 01/28/18 11:24 01/28/18 16:39 01/28/18 21:10 01/29/18 05:31 Bedside Glucose 156 mg/dl 159 mg/dl 186 mg/dl White Blood Count 4.60 K/uL Red Blood Count 2.72 M/uL Hemoglobin 8.9 g/dL Hematocrit 27.5 % Mean Corpuscular Volume 101.1 fL Mean Corpuscular Hemoglobin 32.7 pg Mean Corpuscular Hemoglobin Concent 32.4 g/dl RDW Standard Deviation 63.8 fL RDW Coefficient of Variation 17.8 % Platelet Count 81 K/uL Mean Platelet Volume 9.9 fL Nucleated RBC Absolute Count (auto) 0.03 K/uL Nucleated Red Blood Cells % 0.6 % Prothrombin Time 23.1 SECONDS Prothromb Time International Ratio 2.2 Sodium Level 142 mmol/L Potassium Level 4.3 mmol/L Chloride Level 108 mmol/L Carbon Dioxide Level 25 mmol/L Anion Gap 9.0 mmol/L Blood Urea Nitrogen 124 mg/dl Creatinine 3.51 mg/dl Est Creatinine Clear Calc Drug Dose 22.7 ml/min Estimated GFR () 17.7 Estimated GFR (Non- 15.3 BUN/Creatinine Ratio 35.3 Random Glucose 94 mg/dl Calcium Level 8.1 mg/dl Phosphorus Level 6.0 mg/dl Albumin 2.6 gm/dl Test 01/29/18 07:16 01/29/18 07:33 Bedside Glucose 101 mg/dl Assessment and Plan 82 y/o male presented with Hypothermia and SOB, with indwelling rucker cath for urinary outlet obstructio, has a history of CAD, h/o SC s/p CABG x 2 2007, HTN, HLD, chronic diastolic CHF, a-fib, COPD, DM II with neuropathy, hypothyroidism, JACEK, CKD stage III-IV, lymphedema, EVENS, and urinary retention Possible sepsis, UTI poa chronic Rucker -1 of 2 blood cultures positive for coag negative staph, not lugdunensis, likely contamination -UA positive for yeast, urine culture positive for yeast not monty albicans -Continue Diflucan 100 mg PO qd, Bradycardia, hypothermia, history of Afib on Anticoagulation, did have high TSH and low T4 on presentation and is no thyroid supplementation, pt states he is taking his meds, will give IV synthroid and restart his usual 100mcg synthroid will check am cortisol and use decadron Coagulopathy from coumadin, additional Vitamin K given 01/28 follow INR while lowering dose of Coumadin Acute on chronic diastolic CHF in the face of CKD4 -diuretic dosing per nephrology oversight, using Diuril -Fluid restriction 1500 mL Nephrology is following pt Acute respiratory distress with hypoxia, likely from diastolic heart failure, obesity also influences work of breathing will use Cpap hs, his morbid obesity affects his breathing also Acute Kidney Injury on CKD stage III-IV-now stage 4 but stable -Baseline creatinine 1.7-2.0, pulmonary status mandates diuresis, continue Calcitrol CAD, h/o SC, CABG, HTN, HLD--given overall ill state and previously elevated INR will hold statin A-fib, remains bradycardic, maybe hypothyroidism COPD--only requiring prn DuoNeb, albuterol inhaler DM II w/neuropathy--last HgbA1c 7.1 on 11/14/17 -Hold 70/30-Insulin sliding scale -Continue Trileptal 150 mg PO qam and 300 mg PO hs Iron Deficiency anemia--stable ferrous sulfate, Epogen x 1 on 01/24 EVENS CPAP w/2L NC at night Urinary retention rucker Flomax BID converted Avodart to Proscar 5 mg PO qd DVT prophylaxis-SARBJIT lora and SCDs Code Status -Level III, -Pt states he wants to be DNR
[2018-01-29] MEDS: CALCITRIOL 0.25 MCG CAP PO SCH (08:01)
[2018-01-29] MEDS: DEXAMETHASONE INJ 4 MG in SYRINGE 0 ML IV SCH ×3 (08:01→21:42)
[2018-01-29] MEDS: FLUCONAZOLE 100 MG TAB PO SCH (08:01)
[2018-01-29] MEDS: TAMSULOSIN HCL 0.4 MG CAP PO SCH ×3 (08:01→20:56)
[2018-01-29] MEDS: OXCARBAZEPINE 150 MG TAB PO SCH ×3 (08:01→20:56)
[2018-01-29] MEDS: FERROUS SULFATE 325 MG TAB PO SCH (08:01)
[2018-01-29] MEDS: FINASTERIDE 5 MG TAB PO SCH (08:02)
[2018-01-29] MEDS: INSULIN ASPART 100 UNITS/ML 3 ML PEN SC SCH ×4 (08:03→21:05)
--- NOTE | 2018-01-29 09:47 | Nephrology Progress Note ---
Nephrology Progress Note Date of Service January 29, 2018. Chief Complaint CARLO Subjective No acute events overnight. Unfortunately, Chad's mental status continues to decline. He is very weak and tired this morning. I discussed the plan of care with Dr. Rodriguez and Dr. Bain. I had a long meeting with the patient and his family ( and son). We reviewed goals of care in follow up to the meeting yesterday and in context of cardiology consultation. Chad's urine output remains reduced. He has not had a significant response to Bumex gtt. Review of Systems A complete review of systems was performed. Pertinent positives are noted above. All other systems are negative. Vital Signs Last 8 Hrs Date Time Temp Pulse Resp B/P (MAP) Pulse Ox O2 Delivery O2 Flow Rate FiO2 01/29/18 06:46 36.3 55 18 131/48 (75) 97 3.0 01/29/18 04:00 Nasal Cannula 4.0 01/29/18 03:20 50 16 108/55 (72) 100 Last Recorded Weight Weight (Kilograms): 144.400 Physical Exam General Appearance: + mild distress, + obese Head: normocephalic, atraumatic Eyes: normal inspection, sclerae normal ENT: + pertinent finding (oral mucosa dry) Neck: supple, + JVD Respiratory/Chest: + respiratory distress (mild increase in work of breathing) , + decreased breath sounds, + rales Cardiovascular: no gallop, + bradycardia, + systolic murmur Abdomen/GI: non tender, soft Extremities/Musculoskelatal: + pertinent finding (generalized edema) Neurologic/Psych: + depressed affect, + disoriented Family History FH: diabetes mellitus FH: hypertension Myocardial infarction No family history of chronic kidney disease or end-stage renal disease. 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 Laboratory Results Past 24 Hours 01/29/18 05:31 01/29/18 05:31 Test 01/28/18 11:24 01/28/18 16:39 01/28/18 21:10 01/29/18 05:31 Bedside Glucose 156 mg/dl (70-99) 159 mg/dl (70-99) 186 mg/dl (70-99) Red Blood Count 2.72 M/uL (4.7-6.1) Mean Corpuscular Volume 101.1 fL (80-100) Mean Corpuscular Hemoglobin 32.7 pg (25-34) Mean Corpuscular Hemoglobin Concent 32.4 g/dl (32-36) RDW Standard Deviation 63.8 fL (36.4-46.3) RDW Coefficient of Variation 17.8 % (11.5-14.5) Mean Platelet Volume 9.9 fL (7.4-10.4) Nucleated RBC Absolute Count (auto) 0.03 K/uL (0-0) Nucleated Red Blood Cells % 0.6 % Prothrombin Time 23.1 SECONDS (9.0-12.0) Prothromb Time International Ratio 2.2 (0.9-1.1) Anion Gap 9.0 mmol/L (3-11) Est Creatinine Clear Calc Drug Dose 22.7 ml/min Estimated GFR () 17.7 Estimated GFR (Non- 15.3 BUN/Creatinine Ratio 35.3 (10-20) Calcium Level 8.1 mg/dl (8.5-10.1) Phosphorus Level 6.0 mg/dl (2.5-4.9) Albumin 2.6 gm/dl (3.4-5.0) Test 01/29/18 07:16 01/29/18 07:45 Bedside Glucose 101 mg/dl (70-99) Random Cortisol 23.29 mcg/dl Allergies Coded Allergies: Amoxicillin (Unverified Allergy, Unknown, ., 01/22/18) CI Pigment Blue 63 (Unverified Allergy, Unknown, ., 01/22/18) Duloxetine (Unverified Allergy, Unknown, ., 01/22/18) Gabapentin (Unverified Allergy, Unknown, ., 01/22/18) Nitrofurantoin (Unverified Allergy, Unknown, ., 01/22/18) Pregabalin (Unverified Allergy, Unknown, ., 01/22/18) Chlorpheniramine (Verified Adverse Reaction, Intermediate, "CAUSE PROSTATE TO ENLARGE", 01/22/18) Linezolid (Verified Adverse Reaction, Intermediate, GI SYMPTOMS, 01/22/18) Concommitant GI bleed Phenylpropanolamine (Verified Adverse Reaction, Intermediate, "CAUSE PROSTATE TO ENLARGE"., 01/22/18) Medications Current Inpatient Medications Medications (Trade) Dose Ordered Sig/Sukhwinder Route Start Time Stop Time Status Last Admin Dose Admin Acetaminophen (Tylenol Tab) 650 mg Q4H PRN PO 01/22/18 10:45 02/21/18 10:44 01/24/18 11:23 650 MG Al Hydrox/Mg Hydrox/Simethicone (Maalox Max Susp) 15 ml Q4H PRN PO 01/22/18 10:45 02/21/18 10:44 Magnesium Hydroxide (Milk Of Magnesia Susp) 30 ml Q12H PRN PO 01/22/18 10:45 02/21/18 10:44 Ondansetron HCl (Zofran Inj) 4 mg Q6H PRN IV 01/22/18 10:45 02/21/18 10:44 Polyethylene (Miralax Powder Packet) 17 gm DAILY PRN PO 01/22/18 10:45 02/21/18 10:44 Glucose (Glucose 40% Gel) 15-30 GRAMS 15 GRAMS... UD PRN PO 01/22/18 10:45 02/21/18 10:44 Glucose (Glucose Chew Tab) 4-8 Tablets 4 Tabl... UD PRN PO 01/22/18 10:45 02/21/18 10:44 Dextrose (Dextrose 50% 50ML Syringe) 25-50ML 25ML FOR ... UD PRN IV 01/22/18 10:45 02/21/18 10:44 Glucagon (Glucagon Inj) 1 mg UD PRN SQ 01/22/18 10:45 02/21/18 10:44 Carbohydrates (Carbohydrates For Hypoglycemia) 15-30 GRAMS 15 grams if BSG 54-69... UD PRN PO 01/22/18 10:45 02/21/18 10:44 Insulin Aspart (novoLOG ASPART) SLIDING SCALE G... ACHS SC 01/22/18 11:00 02/21/18 10:59 01/29/18 08:03 5 UNITS Albuterol (Ventolin Hfa Inhaler) 2 puffs Q4 PRN INH 01/22/18 10:45 02/21/18 10:44 Albuterol/ Ipratropium (Duoneb) 3 ml TID PRN INH 01/22/18 10:45 02/21/18 10:44 Levothyroxine Sodium (Synthroid Tab) 100 mcg DAILYBB PO 01/23/18 06:00 02/22/18 05:59 Future hold 01/29/18 06:18 100 MCG Miconazole Nitrate (Desenex Powder) 1 appln DAILY PRN EXT 01/22/18 10:45 02/21/18 10:44 Oxcarbazepine (Trileptal Tab) 150 mg QAM PO 01/23/18 09:00 02/22/18 08:59 01/29/18 08:01 150 MG Oxcarbazepine (Trileptal Tab) 300 mg QPM PO 01/22/18 21:00 02/21/18 20:59 01/28/18 21:28 300 MG Simvastatin (Zocor Tab) 20 mg DAILY PO 01/23/18 09:00 02/22/18 08:59 Future Hold 01/27/18 07:42 20 MG Tamsulosin HCl (Flomax Cap) 0.4 mg BID PO 01/22/18 21:00 02/21/18 20:59 01/29/18 08:01 0.4 MG Finasteride (Proscar Tab) 5 mg QAM PO 01/23/18 09:00 02/22/18 08:59 01/29/18 08:02 5 MG Ferrous Sulfate (Feosol Tab) 325 mg QAM PO 01/23/18 09:00 02/22/18 08:59 Future hold 01/29/18 08:01 325 MG Fluconazole (Diflucan Tab) 100 mg QAM PO 01/23/18 09:00 02/02/18 08:59 01/29/18 08:01 100 MG Calcitriol (Rocaltrol Cap) 0.25 mcg TuThSa@0900 PO 01/24/18 09:45 02/23/18 09:44 01/29/18 08:01 0.25 MCG Bumetanide 10 mg/ Dextrose 50 ml @ 5 mls/hr Q10H IV 01/28/18 14:15 02/27/18 14:14 01/29/18 01:00 5 MLS/HR Dexamethasone Sodium Phosphate 4 mg/Syringe 1 ml @ 1 mls/min Q8 IV 01/29/18 07:45 02/28/18 07:44 01/29/18 08:01 1 MLS/MIN Warfarin Sodium (Coumadin Tab) 4 mg DAILY@16 PO 01/29/18 16:00 02/28/18 15:59 Chlorothiazide Sodium 500 mg/ Dextrose 68 ml @ 200 mls/hr NOW ONCE IV 01/29/18 10:00 01/29/18 10:20 Impression (1) Acute kidney injury (2) Chronic kidney disease (3) Weakness (4) Anemia (5) BPH (benign prostatic hyperplasia) (6) CHF (congestive heart failure) (7) Hypertension (8) Secondary hyperparathyroidism of renal origin Mr. Avery is an 82-year-old male with CKD IV (baseline creatinine of 1.5-2.0) with multiple episodes of CARLO. Medical history is notable for CHF with right-sided heart failure and severe pulmonary hypertension , COPD, a recent history of osteomyelitis/bacteremia with osteomyelitis in the foot and infected sternal hardware. The patient has a bioprosthetic valve and was treated with an extended course of antibiotics following diagnosis of bacteremia in March 2017. Chad has atrial fibrillation with chronic bradycardia. Chad was admitted to the hospital with worsening shortness of breath and generalized weakness. He was found to have significant volume overload with CHF exacerbation and acute on chronic renal insufficiency. 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 Hemodialysis is unlikely to provide significant therapuetic benefit Acute on chronic diastolic CHF in setting of severe renal dysfunction/pulmonary hypertension/R heart failure: -- Bumex gtt + IV Diuril -- Cardiology consult appreciated Anemia: -- Epogen 40401 units x1 dose on 01/24/18 CKD/MBD: -- Hold calcitriol at this time ROPER/BPH: -- Chronic indwelling Mckeon Hypothyroidism: -- IV replacement
--- NOTE | 2018-01-29 09:58 | Cardiology Follow-Up ---
Subjective Date of Service: January 29, 2018. Pt evaluation today including: conversation w/ patient, conversation w/ family , physical exam, lab review, review of studies, review of inpatient medication list History of Present Illness Today the patient is complaining of feeling "pretty rough". He is having a feeling of being bloated, he denies chest discomfort or shortness of breath. He does admit to edema of his lower extremities. It sounds as though he has improved somewhat since admission. He does not have any palpitations or lightheadedness. His and his son are present in the room. Social History Smoking Status: Never Smoker History of Alcohol Use: No Review of Systems Respiratory: + shortness of breath, + dyspnea on exertion, No cough Cardiac: + edema, No chest pain, No PND Medications Cardiovascular: Item Value Date Time Warfarin Sodium 4 mg 01/29/18 1600 (Coumadin Tab) DAILY@16/PO Bumetanide 10 mg/ 50 ml @ 5 mls/hr 01/28/18 1415 Dextrose .Q10H/IV 01/29/18 0100 Objective Vital Signs Past 12 Hours Date Time Temp Pulse Resp B/P (MAP) Pulse Ox O2 Delivery O2 Flow Rate FiO2 01/29/18 08:00 Nasal Cannula 4.0 01/29/18 06:46 36.3 55 18 131/48 (75) 97 3.0 01/29/18 04:00 Nasal Cannula 4.0 01/29/18 03:20 50 16 108/55 (72) 100 01/28/18 23:59 Nasal Cannula 4.0 01/28/18 23:54 48 14 100/52 (68) 100 4.0 Last Recorded Weight-Kilograms: 144.400 Physical Exam Constitutional: General Apperance: obese Level of Distress: mild distress Lungs: Auscultation: no wheezing, decreased breath sounds, rales/crackles on the left, rales/crackles on the right Cardiovascular: Heart Auscultation: irregular rate rhythm Extremities: edema Data Laboratory Results: Last 24 Hours Test 01/28/18 11:24 01/28/18 16:39 01/28/18 21:10 01/29/18 05:31 Bedside Glucose 156 mg/dl 159 mg/dl 186 mg/dl White Blood Count 4.60 K/uL Red Blood Count 2.72 M/uL Hemoglobin 8.9 g/dL Hematocrit 27.5 % Mean Corpuscular Volume 101.1 fL Mean Corpuscular Hemoglobin 32.7 pg Mean Corpuscular Hemoglobin Concent 32.4 g/dl RDW Standard Deviation 63.8 fL RDW Coefficient of Variation 17.8 % Platelet Count 81 K/uL Mean Platelet Volume 9.9 fL Nucleated RBC Absolute Count (auto) 0.03 K/uL Nucleated Red Blood Cells % 0.6 % Prothrombin Time 23.1 SECONDS Prothromb Time International Ratio 2.2 Sodium Level 142 mmol/L Potassium Level 4.3 mmol/L Chloride Level 108 mmol/L Carbon Dioxide Level 25 mmol/L Anion Gap 9.0 mmol/L Blood Urea Nitrogen 124 mg/dl Creatinine 3.51 mg/dl Est Creatinine Clear Calc Drug Dose 22.7 ml/min Estimated GFR () 17.7 Estimated GFR (Non- 15.3 BUN/Creatinine Ratio 35.3 Random Glucose 94 mg/dl Calcium Level 8.1 mg/dl Phosphorus Level 6.0 mg/dl Albumin 2.6 gm/dl Test 01/29/18 07:16 01/29/18 07:45 Bedside Glucose 101 mg/dl Random Cortisol 23.29 mcg/dl Imaging: Admission chest x-ray showed CHF. EKG: His admission electrocardiogram shows atrial fibrillation with a heart rate of 58 bpm, a nonspecific IVCD. Telemetry reviewed: Atrial fibrillation with a somewhat slow heart rate, averaging around 50 bpm. Assessment and Plan 1. Heart rate: He has a long history of bradycardia on no AV keren blocking medications, this is consistent with some degree of AV keren dysfunction. His heart rate however averages around 50 bpm, a little bit lower at night and up to about 60 during the daytime. His heart rate is fairly regular, he is in atrial fibrillation so it is irregular but there is not a great deal of irregularity. I doubt improving his heart rate would help much with his hemodynamic status. 2. Atrial fibrillation: He is in permanent atrial fibrillation and has not been on rate controlling medications due to a controlled heart rate. His heart rate is also fairly regular although there is some irregularity. Atrial fibrillation can be hemodynamically detrimental due to the irregularity but that is probably not a big issue in his case since the rhythm is fairly regular. The heart rate is also about what we would set a pacemaker, therefore we would probably not increase his heart rate significantly with a pacemaker. 3. CHF: He has normal left ventricular function and since diastolic heart failure. He has a nonspecific IVCD but there is no role for biventricular pacing. If he needed a pacemaker we might want to consider that, but that would be questionable even then. 4. At this point I would not recommend a pacemaker, I would treat him as you are with diuresis and I doubt we can improve his status much with consideration of pacing. Thank you for allowing me to participate in his care.
[2018-01-29] MEDS ORDERED: CHLOROTHIAZIDE INJ 500 MG in DEXTROSE 5% 50ML 50 ML IV ONE (10:00)
[2018-01-29 10:36] VITALS: BP 134/54; PULSE 54; TEMP 35.8; O2SAT 99
--- NOTE | 2018-01-29 11:15 | Palliative Care Consultation ---
Consultation Date of Consultation: January 29, 2018. Requesting Physician: Dr. Dan Attending Physician: Dr. Tanner Reason for Consultation: Goals of Care History of Present Illness This is an 82 year-old male patient who presented to the hospital on 01/22 for increased weakness, SOB, decreased appetitie, and a 9 lb weight gain over the past week. The patient has an extensive medical history that includes CAD, ND s/ p CABG x 2 in 2007, HTN, HLD, Diastolic CHF, COPD, AFib, CKD Stage IV, lymphedema, DM II with peripheral neuropathy and urinary retention for which a chronic rucker has been in situ x 6 weeks. Palliative Care was consulted by Nephrology who has talked with the patient regarding his worsening renal function. Family meeting held with the patients , Vaishnavi and son Ernesto. The patient has multiple comorbidities and progressive weakness. His mental status continues to wax and wane, with overall signs of decline. I do not feel he is able to digest the complexity of the current medical situation so I defer to his , Vaishnavi. Lengthy conversation was held regarding CODE STATUS and GOALS OF CARE. The decision was made to change his CODE STATUS to DNR/DNI. On assessment of the patient, he was awake, alert and followed commands. He knows that he is in the hospital. When talking about his body and CHF, renal dysfunction, he did express understanding that he requires more care than his can provide. Planning for continuing current treatment plan, with main goal of comfort in mind. Thank you kindly for involving us in this patients care - We will continue to follow throughout this hospitalization. Past Medical/Surgical History Medical History: CAD ND/CABG x 2 (2007) HTN CKD Stage IV Lymphedema Urinary retention - chronic rucker Diastolic CHF COPD EVENS - uses CPAP intermittently Social History Smoking Status: Never Smoker History of Alcohol Use: No Drug Use: none Marital Status: Housing Status: lives with significant other Occupation Status: retired Review of Systems General: The patient denies any acute pain HEENT: Pt denies RECIO, dizziness, visual change CV: Pt denies CP Resp: Pt denies difficulty breathing GI: Pt denies N/V/D abdominal pain Skin: Pt states his arms 'weep' Allergies Coded Allergies: Amoxicillin (Unverified Allergy, Unknown, ., 01/22/18) CI Pigment Blue 63 (Unverified Allergy, Unknown, ., 01/22/18) Duloxetine (Unverified Allergy, Unknown, ., 01/22/18) Gabapentin (Unverified Allergy, Unknown, ., 01/22/18) Nitrofurantoin (Unverified Allergy, Unknown, ., 01/22/18) Pregabalin (Unverified Allergy, Unknown, ., 01/22/18) Chlorpheniramine (Verified Adverse Reaction, Intermediate, "CAUSE PROSTATE TO ENLARGE", 01/22/18) Linezolid (Verified Adverse Reaction, Intermediate, GI SYMPTOMS, 01/22/18) Concommitant GI bleed Phenylpropanolamine (Verified Adverse Reaction, Intermediate, "CAUSE PROSTATE TO ENLARGE"., 01/22/18) Medications Current Inpatient Medications Medications (Trade) Dose Ordered Sig/Sukhwinder Route Start Time Stop Time Status Last Admin Dose Admin Acetaminophen (Tylenol Tab) 650 mg Q4H PRN PO 01/22/18 10:45 02/21/18 10:44 01/24/18 11:23 650 MG Al Hydrox/Mg Hydrox/Simethicone (Maalox Max Susp) 15 ml Q4H PRN PO 01/22/18 10:45 02/21/18 10:44 Magnesium Hydroxide (Milk Of Magnesia Susp) 30 ml Q12H PRN PO 01/22/18 10:45 02/21/18 10:44 Ondansetron HCl (Zofran Inj) 4 mg Q6H PRN IV 01/22/18 10:45 02/21/18 10:44 Polyethylene (Miralax Powder Packet) 17 gm DAILY PRN PO 01/22/18 10:45 02/21/18 10:44 Glucose (Glucose 40% Gel) 15-30 GRAMS 15 GRAMS... UD PRN PO 01/22/18 10:45 02/21/18 10:44 Glucose (Glucose Chew Tab) 4-8 Tablets 4 Tabl... UD PRN PO 01/22/18 10:45 02/21/18 10:44 Dextrose (Dextrose 50% 50ML Syringe) 25-50ML 25ML FOR ... UD PRN IV 01/22/18 10:45 02/21/18 10:44 Glucagon (Glucagon Inj) 1 mg UD PRN SQ 01/22/18 10:45 02/21/18 10:44 Carbohydrates (Carbohydrates For Hypoglycemia) 15-30 GRAMS 15 grams if BSG 54-69... UD PRN PO 01/22/18 10:45 02/21/18 10:44 Insulin Aspart (novoLOG ASPART) SLIDING SCALE G... ACHS SC 01/22/18 11:00 02/21/18 10:59 01/29/18 08:03 5 UNITS Albuterol (Ventolin Hfa Inhaler) 2 puffs Q4 PRN INH 01/22/18 10:45 02/21/18 10:44 Albuterol/ Ipratropium (Duoneb) 3 ml TID PRN INH 01/22/18 10:45 02/21/18 10:44 Levothyroxine Sodium (Synthroid Tab) 100 mcg DAILYBB PO 01/23/18 06:00 02/22/18 05:59 Future hold 01/29/18 06:18 100 MCG Miconazole Nitrate (Desenex Powder) 1 appln DAILY PRN EXT 01/22/18 10:45 02/21/18 10:44 Oxcarbazepine (Trileptal Tab) 150 mg QAM PO 01/23/18 09:00 02/22/18 08:59 01/29/18 08:01 150 MG Oxcarbazepine (Trileptal Tab) 300 mg QPM PO 01/22/18 21:00 02/21/18 20:59 01/28/18 21:28 300 MG Simvastatin (Zocor Tab) 20 mg DAILY PO 01/23/18 09:00 02/22/18 08:59 Future Hold 01/27/18 07:42 20 MG Tamsulosin HCl (Flomax Cap) 0.4 mg BID PO 01/22/18 21:00 02/21/18 20:59 01/29/18 08:01 0.4 MG Finasteride (Proscar Tab) 5 mg QAM PO 01/23/18 09:00 02/22/18 08:59 01/29/18 08:02 5 MG Ferrous Sulfate (Feosol Tab) 325 mg QAM PO 01/23/18 09:00 02/22/18 08:59 Future hold 01/29/18 08:01 325 MG Fluconazole (Diflucan Tab) 100 mg QAM PO 01/23/18 09:00 02/02/18 08:59 01/29/18 08:01 100 MG Calcitriol (Rocaltrol Cap) 0.25 mcg TuThSa@0900 PO 01/24/18 09:45 02/23/18 09:44 Future Hold 01/29/18 08:01 0.25 MCG Bumetanide 10 mg/ Dextrose 50 ml @ 5 mls/hr Q10H IV 01/28/18 14:15 02/27/18 14:14 01/29/18 10:54 5 MLS/HR Dexamethasone Sodium Phosphate 4 mg/Syringe 1 ml @ 1 mls/min Q8 IV 01/29/18 07:45 02/28/18 07:44 01/29/18 08:01 1 MLS/MIN Warfarin Sodium (Coumadin Tab) 4 mg DAILY@16 PO 01/29/18 16:00 02/28/18 15:59 Physical Exam Date Time Temp Pulse Resp B/P (MAP) Pulse Ox O2 Delivery O2 Flow Rate FiO2 01/29/18 10:36 35.8 54 27 134/54 (80) 99 Nasal Cannula 4.0 01/29/18 08:00 Nasal Cannula 4.0 01/29/18 06:46 36.3 55 18 131/48 (75) 97 3.0 01/29/18 04:00 Nasal Cannula 4.0 01/29/18 03:20 50 16 108/55 (72) 100 01/28/18 23:59 Nasal Cannula 4.0 01/28/18 23:54 48 14 100/52 (68) 100 4.0 01/28/18 20:00 Nasal Cannula 4.0 01/28/18 19:05 36.1 48 13 113/55 (74) 99 Nasal Cannula 4.0 01/28/18 16:45 36.0 54 15 124/53 (76) 94 Nasal Cannula 4.0 01/28/18 16:00 Nasal Cannula 4.0 01/28/18 12:00 Nasal Cannula 4.0 01/28/18 11:45 36.5 50 20 120/76 (91) 94 General Appearance: no apparent distress (pt lying down in his bed) Respiratory: chest non-tender, no respiratory distress (on nasal canula ), no accessory muscle use, + decreased breath sounds Cardiovascular: + irregularly irregular (pt in Afib) Abdomen: normal bowel sounds, non tender Musculoskeletal: pertinent finding (B/L UE 3 B/L LE 11/19 - patient did follow commands with regards to strength) Neurologic/Psychiatric: alert, + pertinent finding (Patient oriented to himself and able to tell me he is in the hospital. Patient does verbalize understanding of knowing he needs more care) Skin: + pertinent finding (Patient arms edematous and third spacing - seeping fluid - arms wrapped wtih ila pad to allow drainage) Laboratory Results Last 24 Hours Test 01/28/18 11:24 01/28/18 16:39 01/28/18 21:10 01/29/18 05:31 Bedside Glucose 156 mg/dl 159 mg/dl 186 mg/dl White Blood Count 4.60 K/uL Red Blood Count 2.72 M/uL Hemoglobin 8.9 g/dL Hematocrit 27.5 % Mean Corpuscular Volume 101.1 fL Mean Corpuscular Hemoglobin 32.7 pg Mean Corpuscular Hemoglobin Concent 32.4 g/dl RDW Standard Deviation 63.8 fL RDW Coefficient of Variation 17.8 % Platelet Count 81 K/uL Mean Platelet Volume 9.9 fL Nucleated RBC Absolute Count (auto) 0.03 K/uL Nucleated Red Blood Cells % 0.6 % Prothrombin Time 23.1 SECONDS Prothromb Time International Ratio 2.2 Sodium Level 142 mmol/L Potassium Level 4.3 mmol/L Chloride Level 108 mmol/L Carbon Dioxide Level 25 mmol/L Anion Gap 9.0 mmol/L Blood Urea Nitrogen 124 mg/dl Creatinine 3.51 mg/dl Est Creatinine Clear Calc Drug Dose 22.7 ml/min Estimated GFR () 17.7 Estimated GFR (Non- 15.3 BUN/Creatinine Ratio 35.3 Random Glucose 94 mg/dl Calcium Level 8.1 mg/dl Phosphorus Level 6.0 mg/dl Albumin 2.6 gm/dl Test 01/29/18 07:16 01/29/18 07:45 Bedside Glucose 101 mg/dl Random Cortisol 23.29 mcg/dl Assessment & Plan Palliative Performance Scale: 30 % Palliative Care Encounter Goals of Care CAD ND/CABG x 2 (2007) HTN CKD Stage IV Lymphedema Urinary retention - chronic rucker Diastolic CHF Palliative Care Recommendations: -Continue with supportive treatment. Consider Albumin which may help with the 3rd spacing. -Family meeting held with the patients family. The patient has multiple comorbidities and progressive weakness. His mental status continues to wax and wane, with overall signs of decline. Lengthy conversation held regarding CODE STATUS and GOALS OF CARE. Patient to be changed to DNR/DNI. Patient understanding that he requires more care than his can provide. Planning for continuing current treatment plan, with main goal of comfort in mind. -Patient and family understanding that his heart and kidney failure make his condition complex, patient has decided NOT to pursue any dialysis now, or in the future. -Family requesting assistance with transitioning [facility] to [facility] - The patient did follow commands and has participated in PT. Goal to have patient skilled with eventual transition to Hospice based on how patient progresses. Counseling and Coordination Total time spent 70 minutes with > 50% of that time spent reviewing the chart, assessing the patrick, discussing GOALS OF CARE and completing a POLST form with the patients and son in a family meeting.
[2018-01-29 12:09] VITALS: BP 137/58; PULSE 56; TEMP 35.7; O2SAT 99
[2018-01-29 15:21] VITALS: BP 114/77; PULSE 50; TEMP 35.1; O2SAT 100
[2018-01-29 16:00] VITALS: O2SAT 100
[2018-01-29] MEDS: WARFARIN SOD 4 MG TAB PO SCH (16:42)
[2018-01-29] MEDS ORDERED: CHLOROTHIAZIDE INJ 500 MG in DEXTROSE 5% 50ML 50 ML IV STA (21:59)
[2018-01-30] VITALS (8 sets, daily range): BP systolic 109–149; BP diastolic 53–64; PULSE 49–58; TEMP 35.5–36.4; O2SAT 93–100
[2018-01-30] MEDS: BUMETANIDE IV 10 MG in DEXTROSE 5% 50ML 10 ML IV SCH ×3 (02:09→23:32)
[2018-01-30 05:46] LABS: HEMATOCRIT 28.8 % (42-52); HEMOGLOBIN 9.3 g/dL (14.0-18.0); MEAN CELL VOLUME 99.3 fL (80-100); MEAN CORPUSCULAR HEMOGLOBIN 32.1 pg (25-34); MEAN CORPUSCULAR HGB CONC 32.3 g/dl (32-36); NUCLEATED RED BLOOD CELL ABS 0.04 K/uL (0-0); RED CELL DISTRIBUTION WIDTH CV 17.5 % (11.5-14.5); RED CELL DISTRIBUTION WIDTH SD 60.8 fL (36.4-46.3); WHITE BLOOD COUNT 3.85 K/uL (4.8-10.8)
[2018-01-30 05:48] LABS: MEAN PLATELET VOLUME 9.4 fL (7.4-10.4); PLATELET COUNT 90 K/uL (130-400)
[2018-01-30 05:54] LABS: INR 1.8 (0.9-1.1)
[2018-01-30 06:19] LABS: ALBUMIN 2.8 gm/dl (3.4-5.0); CALCIUM 8.2 mg/dl (8.5-10.1); CREATININE 3.49 mg/dl (0.60-1.40); PHOSPHORUS 5.9 mg/dl (2.5-4.9); POTASSIUM 4.2 mmol/L (3.5-5.1)
[2018-01-30] MEDS: LEVOTHYROXINE 100 MCG TAB PO SCH (06:25)
[2018-01-30] MEDS: DEXAMETHASONE INJ 4 MG in SYRINGE 0 ML IV SCH (06:25)
[2018-01-30] MEDS: FLUCONAZOLE 100 MG TAB PO SCH (08:08)
[2018-01-30] MEDS: FINASTERIDE 5 MG TAB PO SCH (08:08)
[2018-01-30] MEDS: FERROUS SULFATE 325 MG TAB PO SCH (08:08)
[2018-01-30] MEDS: TAMSULOSIN HCL 0.4 MG CAP PO SCH ×2 (08:08→20:09)
[2018-01-30] MEDS: OXCARBAZEPINE 150 MG TAB PO SCH ×2 (08:08→20:08)
[2018-01-30] MEDS: INSULIN ASPART 100 UNITS/ML 3 ML PEN SC SCH ×4 (08:13→20:08)
--- NOTE | 2018-01-30 09:01 | Nephrology Progress Note ---
Nephrology Progress Note Date of Service January 30, 2018. Chief Complaint CARLO Subjective Ernesto remains somnolent and confused. He denies any complaints this morning though when asked specifically he does note some dyspnea at rest. No fevers or chills. Denies chest pain. Urine output increased from yesterday AM. Ernesto repeatedly asked what he needed to do in order to be discharged. He states that the only thing that concerns him now is going home. Review of Systems A complete review of systems was performed. Pertinent positives are noted above. All other systems are negative. Vital Signs Last 8 Hrs Date Time Temp Pulse Resp B/P (MAP) Pulse Ox O2 Delivery O2 Flow Rate FiO2 01/30/18 06:53 35.6 54 18 129/59 (82) 99 4.0 01/30/18 04:00 Nasal Cannula 4.0 01/30/18 03:53 35.5 49 18 136/64 (88) 100 4.0 Last Recorded Weight Weight (Kilograms): 149.400 Physical Exam General Appearance: + mild distress (slightly increased work of breathing), + obese Head: normocephalic, atraumatic Eyes: normal inspection, sclerae normal ENT: normal ENT inspection, + pertinent finding (oral mucosa dry) Neck: + JVD, + pertinent finding (thick supple) Respiratory/Chest: + respiratory distress, + decreased breath sounds, + rales Cardiovascular: + bradycardia, + systolic murmur, + irregularly irregular Abdomen/GI: non tender, soft Genitourinary - Male: + pertinent finding (Mckeon draining clear yellow urine) Extremities/Musculoskelatal: + pertinent finding (generalized edema) Neurologic/Psych: alert, + disoriented Family History FH: diabetes mellitus FH: hypertension Myocardial infarction No family history of chronic kidney disease or end-stage renal disease. 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 Laboratory Results Past 24 Hours 01/30/18 05:10 01/30/18 05:10 Test 01/29/18 11:30 01/29/18 16:36 01/29/18 21:01 01/30/18 05:10 Bedside Glucose 134 mg/dl (70-99) 177 mg/dl (70-99) 193 mg/dl (70-99) Red Blood Count 2.90 M/uL (4.7-6.1) Mean Corpuscular Volume 99.3 fL (80-100) Mean Corpuscular Hemoglobin 32.1 pg (25-34) Mean Corpuscular Hemoglobin Concent 32.3 g/dl (32-36) RDW Standard Deviation 60.8 fL (36.4-46.3) RDW Coefficient of Variation 17.5 % (11.5-14.5) Mean Platelet Volume 9.4 fL (7.4-10.4) Nucleated RBC Absolute Count (auto) 0.04 K/uL (0-0) Nucleated Red Blood Cells % 1.0 % Prothrombin Time 18.8 SECONDS (9.0-12.0) Prothromb Time International Ratio 1.8 (0.9-1.1) Anion Gap 10.0 mmol/L (3-11) Est Creatinine Clear Calc Drug Dose 23.3 ml/min Estimated GFR () 17.8 Estimated GFR (Non- 15.4 BUN/Creatinine Ratio 35.5 (10-20) Calcium Level 8.2 mg/dl (8.5-10.1) Phosphorus Level 5.9 mg/dl (2.5-4.9) Magnesium Level 3.1 mg/dl (1.8-2.4) Albumin 2.8 gm/dl (3.4-5.0) Test 01/30/18 07:03 Bedside Glucose 156 mg/dl (70-99) Allergies Coded Allergies: Amoxicillin (Unverified Allergy, Unknown, ., 01/22/18) CI Pigment Blue 63 (Unverified Allergy, Unknown, ., 01/22/18) Duloxetine (Unverified Allergy, Unknown, ., 01/22/18) Gabapentin (Unverified Allergy, Unknown, ., 01/22/18) Nitrofurantoin (Unverified Allergy, Unknown, ., 01/22/18) Pregabalin (Unverified Allergy, Unknown, ., 01/22/18) Chlorpheniramine (Verified Adverse Reaction, Intermediate, "CAUSE PROSTATE TO ENLARGE", 01/22/18) Linezolid (Verified Adverse Reaction, Intermediate, GI SYMPTOMS, 01/22/18) Concommitant GI bleed Phenylpropanolamine (Verified Adverse Reaction, Intermediate, "CAUSE PROSTATE TO ENLARGE"., 01/22/18) Medications Current Inpatient Medications Medications (Trade) Dose Ordered Sig/Sukhwinder Route Start Time Stop Time Status Last Admin Dose Admin Acetaminophen (Tylenol Tab) 650 mg Q4H PRN PO 01/22/18 10:45 02/21/18 10:44 01/24/18 11:23 650 MG Al Hydrox/Mg Hydrox/Simethicone (Maalox Max Susp) 15 ml Q4H PRN PO 01/22/18 10:45 02/21/18 10:44 Magnesium Hydroxide (Milk Of Magnesia Susp) 30 ml Q12H PRN PO 01/22/18 10:45 02/21/18 10:44 Ondansetron HCl (Zofran Inj) 4 mg Q6H PRN IV 01/22/18 10:45 02/21/18 10:44 Polyethylene (Miralax Powder Packet) 17 gm DAILY PRN PO 01/22/18 10:45 02/21/18 10:44 Glucose (Glucose 40% Gel) 15-30 GRAMS 15 GRAMS... UD PRN PO 01/22/18 10:45 02/21/18 10:44 Glucose (Glucose Chew Tab) 4-8 Tablets 4 Tabl... UD PRN PO 01/22/18 10:45 02/21/18 10:44 Dextrose (Dextrose 50% 50ML Syringe) 25-50ML 25ML FOR ... UD PRN IV 01/22/18 10:45 02/21/18 10:44 Glucagon (Glucagon Inj) 1 mg UD PRN SQ 01/22/18 10:45 02/21/18 10:44 Carbohydrates (Carbohydrates For Hypoglycemia) 15-30 GRAMS 15 grams if BSG 54-69... UD PRN PO 01/22/18 10:45 02/21/18 10:44 Insulin Aspart (novoLOG ASPART) SLIDING SCALE G... ACHS SC 01/22/18 11:00 02/21/18 10:59 01/30/18 08:13 5 UNITS Albuterol (Ventolin Hfa Inhaler) 2 puffs Q4 PRN INH 01/22/18 10:45 02/21/18 10:44 Albuterol/ Ipratropium (Duoneb) 3 ml TID PRN INH 01/22/18 10:45 02/21/18 10:44 Levothyroxine Sodium (Synthroid Tab) 100 mcg DAILYBB PO 01/23/18 06:00 02/22/18 05:59 Future hold 01/30/18 06:25 100 MCG Miconazole Nitrate (Desenex Powder) 1 appln DAILY PRN EXT 01/22/18 10:45 02/21/18 10:44 Oxcarbazepine (Trileptal Tab) 150 mg QAM PO 01/23/18 09:00 02/22/18 08:59 01/30/18 08:08 150 MG Oxcarbazepine (Trileptal Tab) 300 mg QPM PO 01/22/18 21:00 02/21/18 20:59 01/28/18 21:28 300 MG Simvastatin (Zocor Tab) 20 mg DAILY PO 01/23/18 09:00 02/22/18 08:59 Future Hold 01/27/18 07:42 20 MG Tamsulosin HCl (Flomax Cap) 0.4 mg BID PO 01/22/18 21:00 02/21/18 20:59 01/30/18 08:08 0.4 MG Finasteride (Proscar Tab) 5 mg QAM PO 01/23/18 09:00 02/22/18 08:59 01/30/18 08:08 5 MG Ferrous Sulfate (Feosol Tab) 325 mg QAM PO 01/23/18 09:00 02/22/18 08:59 Future hold 01/30/18 08:08 325 MG Fluconazole (Diflucan Tab) 100 mg QAM PO 01/23/18 09:00 02/02/18 08:59 01/30/18 08:08 100 MG Calcitriol (Rocaltrol Cap) 0.25 mcg TuThSa@0900 PO 01/24/18 09:45 02/23/18 09:44 Future Hold 01/29/18 08:01 0.25 MCG Bumetanide 10 mg/ Dextrose 50 ml @ 5 mls/hr Q10H IV 01/28/18 14:15 02/27/18 14:14 01/30/18 02:09 5 MLS/HR Warfarin Sodium (Coumadin Tab) 4 mg DAILY@16 PO 01/29/18 16:00 02/28/18 15:59 01/29/18 16:42 4 MG Impression (1) Acute kidney injury (2) Chronic kidney disease (3) Weakness (4) Anemia (5) BPH (benign prostatic hyperplasia) (6) CHF (congestive heart failure) (7) Hypertension (8) Secondary hyperparathyroidism of renal origin Mr. Avery is an 82-year-old male with CKD IV (baseline creatinine of 1.5-2.0) with multiple episodes of CARLO. Medical history is notable for CHF with right-sided heart failure and severe pulmonary hypertension , COPD, a recent history of osteomyelitis/bacteremia with osteomyelitis in the foot and infected sternal hardware. The patient has a bioprosthetic valve and was treated with an extended course of antibiotics following diagnosis of bacteremia in March 2017. Chad has atrial fibrillation with chronic bradycardia. Chad was admitted to the hospital with worsening shortness of breath and generalized weakness. He was found to have significant volume overload with CHF exacerbation and acute on chronic renal insufficiency. Recommendations CARLO/CKD: -- Metabolic profile remains acceptable -- Urine output increased, plan to continue Bumex gtt with intermittent Diuril to encourage negative fluid balance -- No current indication for [employer] Acute on chronic diastolic CHF in setting of severe renal dysfunction/pulmonary hypertension/R heart failure: -- Bumex gtt + IV Diuril -- Cardiology consult appreciated Anemia: -- Epogen 73147 units x1 dose on 01/24/18 -- Additional 31145 units today ROPER/BPH: -- Chronic indwelling Mckeon Hypothyroidism: -- IV replacement
[2018-01-30] MEDS ORDERED: EPOETIN ALFA 20,000 UNITS/ML VIAL SQ ONE (09:30)
[2018-01-30] MEDS ORDERED: CHLOROTHIAZIDE INJ 500 MG in DEXTROSE 5% 50ML 50 ML IV ONE (09:30)
[2018-01-30] MEDS: WARFARIN SOD 4 MG TAB PO SCH (15:12)
--- NOTE | 2018-01-30 16:10 | Progress Note ---
Subjective Date of Service: January 30, 2018. Subjective pt continues to be about the same, seems to have some increased urine output by I/O but no real reduction of weight. Family is at bedside and has no further questions Problem List Medical Problems: (1) Bleeding from PICC line Status: Acute (2) Cellulitis of left lower extremity Status: Acute (3) Chronic kidney disease Status: Acute (4) Dyspnea Status: Acute (5) Facial abrasion Status: Acute (6) Failure of outpatient treatment Status: Acute (7) Fever Status: Acute (8) Fever Status: Acute (9) Fever Status: Acute (10) Hypoxia Status: Acute (11) Lactic acid acidosis Status: Acute (12) Leukocytosis Status: Acute (13) Leukocytosis Status: Acute (14) Pneumonia Status: Acute (15) Renal failure Status: Acute (16) Sepsis Status: Acute (17) Sepsis Status: Acute (18) UTI (urinary tract infection) Status: Acute (19) UTI (urinary tract infection) Status: Acute (20) Weakness Status: Acute Review of Systems Constitutional: No fever, No chills Respiratory: No cough, No sputum, No wheezing, No shortness of breath Cardiac: + edema, No chest pain Abdomen: No pain, No nausea, No vomiting Musculoskeletal: No joint pain, No muscle pain Psychiatric: No depression symptoms, No anxiety Objective Vital Signs Date Time Temp Pulse Resp B/P (MAP) Pulse Ox O2 Delivery O2 Flow Rate FiO2 01/30/18 15:33 36.4 58 20 122/57 (78) 100 Nasal Cannula 4.0 01/30/18 15:29 Nasal Cannula 4.0 01/30/18 12:27 35.9 52 23 149/61 (90) 99 Room Air 01/30/18 12:00 Nasal Cannula 4.0 01/30/18 08:00 Nasal Cannula 4.0 01/30/18 06:53 35.6 54 18 129/59 (82) 99 4.0 01/30/18 04:00 Nasal Cannula 4.0 01/30/18 03:53 35.5 49 18 136/64 (88) 100 4.0 01/30/18 00:09 35.9 50 14 131/53 (79) 93 01/29/18 23:59 Nasal Cannula 4.0 01/29/18 20:00 Nasal Cannula 4.0 Physical Exam General Appearance: WD/WN, + mild distress, + obese Eyes: normal inspection, sclerae normal Respiratory/Chest: chest non-tender, + decreased breath sounds, + accessory muscle use Cardiovascular: + bradycardia, + systolic murmur Abdomen: normal bowel sounds, non tender, soft Extremities: + pedal edema, + swelling, + pertinent finding (changes of chronic venous stasis) Neurologic/Psychiatric: alert, oriented x 3 Laboratory Results Last 24 Hours Test 01/29/18 16:36 01/29/18 21:01 01/30/18 05:10 01/30/18 07:03 Bedside Glucose 177 mg/dl 193 mg/dl 156 mg/dl White Blood Count 3.85 K/uL Red Blood Count 2.90 M/uL Hemoglobin 9.3 g/dL Hematocrit 28.8 % Mean Corpuscular Volume 99.3 fL Mean Corpuscular Hemoglobin 32.1 pg Mean Corpuscular Hemoglobin Concent 32.3 g/dl RDW Standard Deviation 60.8 fL RDW Coefficient of Variation 17.5 % Platelet Count 90 K/uL Mean Platelet Volume 9.4 fL Nucleated RBC Absolute Count (auto) 0.04 K/uL Nucleated Red Blood Cells % 1.0 % Prothrombin Time 18.8 SECONDS Prothromb Time International Ratio 1.8 Sodium Level 142 mmol/L Potassium Level 4.2 mmol/L Chloride Level 106 mmol/L Carbon Dioxide Level 26 mmol/L Anion Gap 10.0 mmol/L Blood Urea Nitrogen 124 mg/dl Creatinine 3.49 mg/dl Est Creatinine Clear Calc Drug Dose 23.3 ml/min Estimated GFR () 17.8 Estimated GFR (Non- 15.4 BUN/Creatinine Ratio 35.5 Random Glucose 136 mg/dl Calcium Level 8.2 mg/dl Phosphorus Level 5.9 mg/dl Magnesium Level 3.1 mg/dl Albumin 2.8 gm/dl Test 01/30/18 11:22 Bedside Glucose 172 mg/dl Assessment and Plan 82 y/o male presented with Hypothermia and SOB, with indwelling rucker cath for urinary outlet obstructio, has a history of CAD, h/o MS s/p CABG x 2 2007, HTN, HLD, chronic diastolic CHF, a-fib, COPD, DM II with neuropathy, hypothyroidism, JACEK, CKD stage III-IV, lymphedema, EVENS, and urinary retention Possible sepsis, UTI poa chronic Rucker -1 of 2 blood cultures positive for coag negative staph, not lugdunensis, likely contamination -UA positive for yeast, urine culture positive for yeast not monty albicans Diflucan 100 mg PO qd x 7 d Bradycardia, hypothermia, history of Afib on Anticoagulation, did have high TSH and low T4 on presentation and is no thyroid supplementation, pt states he is taking his meds, will give IV synthroid and increase synthroid to 125, did check am cortisol and was appropriate and stopped Decadron, did not have clinical response anyway Coagulopathy from coumadin, additional Vitamin K given 01/28 follow INR while lowering dose of Coumadin Acute on chronic diastolic CHF in the face of CKD4 -diuretic dosing per nephrology oversight, using Diuril bolus and bumex continual infusion -Fluid restriction 1500 mL Nephrology is following pt Acute respiratory distress with hypoxia, likely from diastolic heart failure, obesity also influences work of breathing will use Cpap hs, his morbid obesity affects his breathing also Acute Kidney Injury on CKD stage III-IV-now stage 4 but stable -Baseline creatinine 1.7-2.0, pulmonary status mandates diuresis, continue Calcitrol CAD, h/o MS, CABG, HTN, HLD--given overall ill state and previously elevated INR will hold statin A-fib, remains bradycardic, maybe hypothyroidism COPD--only requiring prn DuoNeb, albuterol inhaler DM II w/neuropathy--last HgbA1c 7.1 on 11/14/17 -Hold 70/30-Insulin sliding scale -Continue Trileptal 150 mg PO qam and 300 mg PO hs Iron Deficiency anemia--stable ferrous sulfate, Epogen x 1 on 01/24 EVENS CPAP w/2L NC at night Urinary retention rucker Flomax BID converted Avodart to Proscar 5 mg PO qd DVT prophylaxis-SARBJIT lora and SCDs Code Status -Level III, -Pt states he wants to be DNR
[2018-01-30] MEDS ORDERED: [UNRECOGNIZED DRUG - REMARK] PO PRN (17:45)
--- NOTE | 2018-01-30 19:42 | DIAGNOSTIC IMAGING REPORT ---
CHEST ONE VIEW PORTABLE HISTORY: 82 years-old Male eval for heartfailure acute shortness of breath COMPARISON: Chest radiograph 01/28/2018 TECHNIQUE: Portable AP view of the chest FINDINGS: Cardiac silhouette is enlarged. Sternotomy fusion hardware redemonstrated. Atherosclerosis of the aorta. There is no pneumothorax. Suspected trace pleural effusions. Ulna edema persists and has not significantly changed from comparison. Slightly improved aeration about the left lung base. Degenerative changes of the shoulders and spine. IMPRESSION: 1. Cardiomegaly with persistent pulmonary edema and trace pleural effusions. 2. Slightly improved aeration about the left lung base. The above report was generated using voice recognition software. It may contain grammatical, syntax or spelling errors. Electronically signed by: Juan Pablo Murphy M.D. 01/30/2018 7:40 PM Dictated Date/Time: 01/30/2018 7:36 PM
[2018-01-30] MEDS ORDERED: CHLOROTHIAZIDE INJ 500 MG in DEXTROSE 5% 50ML 50 ML IV STA (21:41)
[2018-01-31 06:05] LABS: HEMATOCRIT 28.2 % (42-52); HEMOGLOBIN 9.3 g/dL (14.0-18.0); MEAN CELL VOLUME 98.9 fL (80-100); MEAN CORPUSCULAR HEMOGLOBIN 32.6 pg (25-34); MEAN PLATELET VOLUME 9.4 fL (7.4-10.4); NUCLEATED RED BLOOD CELL ABS 0.04 K/uL (0-0); PLATELET COUNT 104 K/uL (130-400); RED CELL DISTRIBUTION WIDTH CV 17.9 % (11.5-14.5); RED CELL DISTRIBUTION WIDTH SD 61.1 fL (36.4-46.3)
[2018-01-31 06:34] LABS: ALBUMIN 2.8 gm/dl (3.4-5.0); CALCIUM 8.3 mg/dl (8.5-10.1); CREATININE 3.59 mg/dl (0.60-1.40); PHOSPHORUS 5.9 mg/dl (2.5-4.9); POTASSIUM 3.9 mmol/L (3.5-5.1)
[2018-01-31 07:30] VITALS: BP 113/67; PULSE 51; TEMP 36.1; O2SAT 98
[2018-01-31 08:00] VITALS: O2SAT 98
[2018-01-31] MEDS: BUMETANIDE IV 10 MG in DEXTROSE 5% 50ML 10 ML IV SCH ×2 (08:24→17:12)
[2018-01-31] MEDS: TAMSULOSIN HCL 0.4 MG CAP PO SCH ×2 (08:24→20:48)
[2018-01-31] MEDS: FLUCONAZOLE 100 MG TAB PO SCH (08:24)
[2018-01-31] MEDS: FERROUS SULFATE 325 MG TAB PO SCH (08:25)
[2018-01-31] MEDS: FINASTERIDE 5 MG TAB PO SCH (08:25)
[2018-01-31] MEDS: OXCARBAZEPINE 150 MG TAB PO SCH ×2 (08:25→20:48)
[2018-01-31] MEDS: LEVOTHYROXINE 125 MCG TAB PO SCH (09:29)
[2018-01-31] MEDS: INSULIN ASPART 100 UNITS/ML 3 ML PEN SC SCH ×4 (09:31→20:54)
--- NOTE | 2018-01-31 09:48 | Nephrology Progress Note ---
Nephrology Progress Note Date of Service January 31, 2018. Chief Complaint CARLO Subjective Ernesto was seen and evaluated with his daughter (Monica) at the bedside. He was more awake for me this morning. He is eating breakfast but appetite is poor and he is having difficulty feeding himself. Ernesto is coughing this AM. He does appear to be aspirating liquids. His daughter noted this. Ernesto states that he feels better but he is not able to better describe this. No fevers or chills. Denies significant dyspnea at rest. Remains very somnolent and weak. Plan of care was discussed with Dr. Tanner this morning. Review of Systems A complete review of systems was performed. Pertinent positives are noted above. All other systems are negative. Vital Signs Last 8 Hrs Date Time Temp Pulse Resp B/P (MAP) Pulse Ox O2 Delivery O2 Flow Rate FiO2 01/31/18 07:30 36.1 51 24 113/67 (82) 98 CPAP 3.0 Last Recorded Weight Weight (Kilograms): 149.400 Physical Exam General Appearance: no apparent distress, + obese Head: normocephalic, atraumatic Eyes: normal inspection, sclerae normal ENT: normal ENT inspection, + pertinent finding (oral mucosa dry) Neck: + pertinent finding (thick, supple) Respiratory/Chest: + respiratory distress (mildly increased work of breathing) , + decreased breath sounds, + rales Cardiovascular: + bradycardia, + systolic murmur, + irregularly irregular Abdomen/GI: non tender, soft Genitourinary - Male: + pertinent finding (Mckeon draining clear yellow urine) Extremities/Musculoskelatal: + pedal edema Neurologic/Psych: + depressed affect, + disoriented Family History FH: diabetes mellitus FH: hypertension Myocardial infarction No family history of chronic kidney disease or end-stage renal disease. 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 Laboratory Results Past 24 Hours 01/31/18 05:53 01/31/18 05:53 Test 01/30/18 11:22 01/30/18 16:39 01/30/18 20:02 01/31/18 05:53 Bedside Glucose 172 mg/dl (70-99) 160 mg/dl (70-99) 157 mg/dl (70-99) Red Blood Count 2.85 M/uL (4.7-6.1) Mean Corpuscular Volume 98.9 fL (80-100) Mean Corpuscular Hemoglobin 32.6 pg (25-34) Mean Corpuscular Hemoglobin Concent 33.0 g/dl (32-36) RDW Standard Deviation 61.1 fL (36.4-46.3) RDW Coefficient of Variation 17.9 % (11.5-14.5) Mean Platelet Volume 9.4 fL (7.4-10.4) Nucleated RBC Absolute Count (auto) 0.04 K/uL (0-0) Nucleated Red Blood Cells % 0.6 % Anion Gap 10.0 mmol/L (3-11) Est Creatinine Clear Calc Drug Dose 22.6 ml/min Estimated GFR () 17.2 Estimated GFR (Non- 14.9 BUN/Creatinine Ratio 35.0 (10-20) Calcium Level 8.3 mg/dl (8.5-10.1) Phosphorus Level 5.9 mg/dl (2.5-4.9) Albumin 2.8 gm/dl (3.4-5.0) Test 01/31/18 07:41 Bedside Glucose 144 mg/dl (70-99) Allergies Coded Allergies: Amoxicillin (Unverified Allergy, Unknown, ., 01/22/18) CI Pigment Blue 63 (Unverified Allergy, Unknown, ., 01/22/18) Duloxetine (Unverified Allergy, Unknown, ., 01/22/18) Gabapentin (Unverified Allergy, Unknown, ., 01/22/18) Nitrofurantoin (Unverified Allergy, Unknown, ., 01/22/18) Pregabalin (Unverified Allergy, Unknown, ., 01/22/18) Chlorpheniramine (Verified Adverse Reaction, Intermediate, "CAUSE PROSTATE TO ENLARGE", 01/22/18) Linezolid (Verified Adverse Reaction, Intermediate, GI SYMPTOMS, 01/22/18) Concommitant GI bleed Phenylpropanolamine (Verified Adverse Reaction, Intermediate, "CAUSE PROSTATE TO ENLARGE"., 01/22/18) Medications Current Inpatient Medications Medications (Trade) Dose Ordered Sig/Sukhwinder Route Start Time Stop Time Status Last Admin Dose Admin Acetaminophen (Tylenol Tab) 650 mg Q4H PRN PO 01/22/18 10:45 02/21/18 10:44 01/24/18 11:23 650 MG Al Hydrox/Mg Hydrox/Simethicone (Maalox Max Susp) 15 ml Q4H PRN PO 01/22/18 10:45 02/21/18 10:44 Magnesium Hydroxide (Milk Of Magnesia Susp) 30 ml Q12H PRN PO 01/22/18 10:45 02/21/18 10:44 Ondansetron HCl (Zofran Inj) 4 mg Q6H PRN IV 01/22/18 10:45 02/21/18 10:44 Polyethylene (Miralax Powder Packet) 17 gm DAILY PRN PO 01/22/18 10:45 02/21/18 10:44 Glucose (Glucose 40% Gel) 15-30 GRAMS 15 GRAMS... UD PRN PO 01/22/18 10:45 02/21/18 10:44 Glucose (Glucose Chew Tab) 4-8 Tablets 4 Tabl... UD PRN PO 01/22/18 10:45 02/21/18 10:44 Dextrose (Dextrose 50% 50ML Syringe) 25-50ML 25ML FOR ... UD PRN IV 01/22/18 10:45 02/21/18 10:44 Glucagon (Glucagon Inj) 1 mg UD PRN SQ 01/22/18 10:45 02/21/18 10:44 Carbohydrates (Carbohydrates For Hypoglycemia) 15-30 GRAMS 15 grams if BSG 54-69... UD PRN PO 01/22/18 10:45 02/21/18 10:44 Insulin Aspart (novoLOG ASPART) SLIDING SCALE G... ACHS SC 01/22/18 11:00 02/21/18 10:59 01/30/18 20:08 1 UNITS Albuterol (Ventolin Hfa Inhaler) 2 puffs Q4 PRN INH 01/22/18 10:45 02/21/18 10:44 Albuterol/ Ipratropium (Duoneb) 3 ml TID PRN INH 01/22/18 10:45 02/21/18 10:44 Miconazole Nitrate (Desenex Powder) 1 appln DAILY PRN EXT 01/22/18 10:45 02/21/18 10:44 Oxcarbazepine (Trileptal Tab) 150 mg QAM PO 01/23/18 09:00 02/22/18 08:59 01/31/18 08:25 150 MG Oxcarbazepine (Trileptal Tab) 300 mg QPM PO 01/22/18 21:00 02/21/18 20:59 01/30/18 20:08 300 MG Simvastatin (Zocor Tab) 20 mg DAILY PO 01/23/18 09:00 02/22/18 08:59 Future Hold 01/27/18 07:42 20 MG Tamsulosin HCl (Flomax Cap) 0.4 mg BID PO 01/22/18 21:00 02/21/18 20:59 01/31/18 08:24 0.4 MG Finasteride (Proscar Tab) 5 mg QAM PO 01/23/18 09:00 02/22/18 08:59 01/31/18 08:25 5 MG Ferrous Sulfate (Feosol Tab) 325 mg QAM PO 01/23/18 09:00 02/22/18 08:59 Future hold 01/31/18 08:25 325 MG Fluconazole (Diflucan Tab) 100 mg QAM PO 01/23/18 09:00 02/02/18 08:59 01/31/18 08:24 100 MG Calcitriol (Rocaltrol Cap) 0.25 mcg TuThSa@0900 PO 01/24/18 09:45 02/23/18 09:44 Future Hold 01/29/18 08:01 0.25 MCG Bumetanide 10 mg/ Dextrose 50 ml @ 5 mls/hr Q10H IV 01/28/18 14:15 02/27/18 14:14 01/31/18 08:24 5 MLS/HR Warfarin Sodium (Coumadin Tab) 4 mg DAILY@16 PO 01/29/18 16:00 02/28/18 15:59 01/30/18 15:12 4 MG Levothyroxine Sodium (Synthroid Tab) 125 mcg DAILYBB PO 01/31/18 06:00 02/22/18 05:59 Impression (1) Acute kidney injury (2) Chronic kidney disease (3) Weakness (4) Anemia (5) BPH (benign prostatic hyperplasia) (6) CHF (congestive heart failure) (7) Hypertension (8) Secondary hyperparathyroidism of renal origin Mr. Avery is an 82-year-old male with CKD IV (baseline creatinine of 1.5-2.0) with multiple episodes of CARLO. Medical history is notable for CHF with right-sided heart failure and severe pulmonary hypertension , COPD, a recent history of osteomyelitis/bacteremia with osteomyelitis in the foot and infected sternal hardware. The patient has a bioprosthetic valve and was treated with an extended course of antibiotics following diagnosis of bacteremia in March 2017. Chad has atrial fibrillation with chronic bradycardia. Chad was admitted to the hospital with worsening shortness of breath and generalized weakness. He was found to have significant volume overload with CHF exacerbation and acute on chronic renal insufficiency. Recommendations CARLO/CKD: -- Metabolic profile remains acceptable -- Urine output increased, plan to provide an additional dose of Diuril this AM and transition off gtt this afternoon Acute on chronic diastolic CHF in setting of severe renal dysfunction/pulmonary hypertension/R heart failure: -- Subtle improvement in volume status -- Cardiology consult appreciated Aspiration: -- Speech evaluation Anemia: -- Epogen [id number] u on 01/30/18 ROPER/BPH: -- Chronic indwelling Mckeon Hypothyroidism: -- IV replacement
[2018-01-31] MEDS ORDERED: CHLOROTHIAZIDE INJ 500 MG in DEXTROSE 5% 50ML 50 ML IV ONE (10:15)
--- NOTE | 2018-01-31 11:30 | Progress Note ---
Subjective Date of Service: January 31, 2018. Subjective pt is more sleepy today than usual, his daughter is at the bedside, he will have swallowing study. will transition to bolus bumex according to nephrology Problem List Medical Problems: (1) Bleeding from PICC line Status: Acute (2) Cellulitis of left lower extremity Status: Acute (3) Chronic kidney disease Status: Acute (4) Dyspnea Status: Acute (5) Facial abrasion Status: Acute (6) Failure of outpatient treatment Status: Acute (7) Fever Status: Acute (8) Fever Status: Acute (9) Fever Status: Acute (10) Hypoxia Status: Acute (11) Lactic acid acidosis Status: Acute (12) Leukocytosis Status: Acute (13) Leukocytosis Status: Acute (14) Pneumonia Status: Acute (15) Renal failure Status: Acute (16) Sepsis Status: Acute (17) Sepsis Status: Acute (18) UTI (urinary tract infection) Status: Acute (19) UTI (urinary tract infection) Status: Acute (20) Weakness Status: Acute Review of Systems Constitutional: + weakness, + fatigue, No fever, No chills Respiratory: No cough, No wheezing Cardiac: + edema Abdomen: No pain, No nausea, No vomiting, No diarrhea Male : No dysuria, No urinary frequency, No incontinence Psychiatric: No depression symptoms, No anhedonism Objective Vital Signs Date Time Temp Pulse Resp B/P (MAP) Pulse Ox O2 Delivery O2 Flow Rate FiO2 01/31/18 08:00 98 Nasal Cannula 3.0 01/31/18 07:30 36.1 51 24 113/67 (82) 98 CPAP 3.0 01/31/18 00:00 CPAP 3.0 01/30/18 23:22 35.7 50 20 109/53 (71) 100 Nasal Cannula 3.0 01/30/18 20:00 Nasal Cannula 3.0 01/30/18 19:01 36.2 54 24 114/63 (80) 100 Nasal Cannula 3.0 01/30/18 18:50 100 Nasal Cannula 4.0 01/30/18 15:33 36.4 58 20 122/57 (78) 100 Nasal Cannula 4.0 01/30/18 15:29 Nasal Cannula 4.0 01/30/18 12:27 35.9 52 23 149/61 (90) 99 Room Air 5/16/18 12:00 Nasal Cannula 4.0 Physical Exam General Appearance: WD/WN, + moderate distress Neck: supple, no JVD Respiratory/Chest: chest non-tender, lungs clear Cardiovascular: regular rate, rhythm, no murmur Abdomen: normal bowel sounds, non tender, soft Neurologic/Psychiatric: alert, oriented x 3 Skin: normal color, no rash Laboratory Results Last 24 Hours Test 01/30/18 16:39 01/30/18 20:02 01/31/18 05:53 01/31/18 07:41 Bedside Glucose 160 mg/dl 157 mg/dl 144 mg/dl White Blood Count 6.50 K/uL Red Blood Count 2.85 M/uL Hemoglobin 9.3 g/dL Hematocrit 28.2 % Mean Corpuscular Volume 98.9 fL Mean Corpuscular Hemoglobin 32.6 pg Mean Corpuscular Hemoglobin Concent 33.0 g/dl RDW Standard Deviation 61.1 fL RDW Coefficient of Variation 17.9 % Platelet Count 104 K/uL Mean Platelet Volume 9.4 fL Nucleated RBC Absolute Count (auto) 0.04 K/uL Nucleated Red Blood Cells % 0.6 % Sodium Level 142 mmol/L Potassium Level 3.9 mmol/L Chloride Level 105 mmol/L Carbon Dioxide Level 27 mmol/L Anion Gap 10.0 mmol/L Blood Urea Nitrogen 126 mg/dl Creatinine 3.59 mg/dl Est Creatinine Clear Calc Drug Dose 22.6 ml/min Estimated GFR () 17.2 Estimated GFR (Non- 14.9 BUN/Creatinine Ratio 35.0 Random Glucose 134 mg/dl Calcium Level 8.3 mg/dl Phosphorus Level 5.9 mg/dl Albumin 2.8 gm/dl Assessment and Plan 82 y/o male presented with Hypothermia and SOB, with indwelling rucker cath for urinary outlet obstructio, has a history of CAD, h/o AR s/p CABG x 2 2007, HTN, HLD, chronic diastolic CHF, a-fib, COPD, DM II with neuropathy, hypothyroidism, JACEK, CKD stage III-IV, lymphedema, EVENS, and urinary retention Possible sepsis, UTI poa chronic Rucker -1 of 2 blood cultures positive for coag negative staph, not lugdunensis, likely contamination -UA positive for yeast, urine culture positive for yeast not monty albicans Diflucan 100 mg PO qd x 7 d Bradycardia, hypothermia, history of Afib on Anticoagulation, did have high TSH and low T4 on presentation and is no thyroid supplementation, pt states he is taking his meds, will give IV synthroid and increase synthroid to 125 01/30, did check am cortisol and was appropriate and stopped Decadron, did not have clinical response anyway Coagulopathy from coumadin, additional Vitamin K given 01/28 follow INR while lowering dose of Coumadin Acute on chronic diastolic CHF in the face of CKD4 -diuretic dosing per nephrology oversight, using Diuril bolus and bumex continual infusion transition to bolus 01/31 -Fluid restriction 1500 mL Nephrology is following pt Acute respiratory distress with hypoxia, likely from diastolic heart failure, obesity also influences work of breathing will use Cpap hs, his morbid obesity affects this too Acute Kidney Injury resolve, CKD stage 4 but stable, continue Calcitrol CAD, h/o AR, CABG, HTN, HLD--given overall ill state and previously elevated INR will hold statin A-fib, remains bradycardic, possibly secondary to hypothyroidism COPD--only requiring advair DuoNeb, albuterol inhaler DM II w/neuropathy--last HgbA1c 7.1 on 11/14/17 -Hold 70/30-Insulin sliding scale -Continue Trileptal 150 mg PO qam and 300 mg PO hs Iron Deficiency anemia--stable ferrous sulfate, Epogen x 1 on 01/24 EVENS CPAP w/2L NC at night Urinary retention rucker Flomax BID converted Avodart to Proscar 5 mg PO qd DVT prophylaxis-SARBJIT lora and SCDs Code Status -Level III, -Pt states he wants to be DNR
[2018-01-31 15:49] VITALS: BP 117/79; PULSE 52; O2SAT 100
[2018-01-31] MEDS ORDERED: BUMETANIDE IV 2 MG in SYRINGE 0 ML IV SCH (17:00)
[2018-01-31] MEDS: WARFARIN SOD 4 MG TAB PO SCH (17:50)
[2018-01-31] MEDS: ACETAMINOPHEN 325 MG TAB PO PRN (18:39)
[2018-01-31] MEDS: FLUTICASONE/SALMETEROL 250/50 (ADVAIR) 14 PUFF/1 INHALER INH SCH (20:56)
[2018-02-01] VITALS (7 sets, daily range): BP systolic 100–121; BP diastolic 52–67; PULSE 44–49; TEMP 35.9–36.3; O2SAT 94–100
[2018-02-01 06:05] LABS: HEMATOCRIT 28.8 % (42-52); HEMOGLOBIN 9.3 g/dL (14.0-18.0); MEAN CELL VOLUME 100.3 fL (80-100); MEAN CORPUSCULAR HEMOGLOBIN 32.4 pg (25-34); MEAN CORPUSCULAR HGB CONC 32.3 g/dl (32-36); NUCLEATED RED BLOOD CELL ABS 0.02 K/uL (0-0); RED CELL DISTRIBUTION WIDTH CV 18.2 % (11.5-14.5); RED CELL DISTRIBUTION WIDTH SD 63.2 fL (36.4-46.3); WHITE BLOOD COUNT 5.32 K/uL (4.8-10.8)
[2018-02-01 06:17] LABS: INR 3.3 (0.9-1.1)
[2018-02-01 06:42] LABS: ALBUMIN 2.6 gm/dl (3.4-5.0); CREATININE 3.68 mg/dl (0.60-1.40); PHOSPHORUS 5.8 mg/dl (2.5-4.9); POTASSIUM 3.6 mmol/L (3.5-5.1)
[2018-02-01 06:47] LABS: MEAN PLATELET VOLUME 9.3 fL (7.4-10.4); PLATELET COUNT 96 K/uL (130-400)
[2018-02-01] MEDS ORDERED: POTASSIUM CHLORIDE 20 MEQ TABCR PO STA (07:18)
--- NOTE | 2018-02-01 08:28 | Nephrology Progress Note ---
Nephrology Progress Note Date of Service February 01, 2018. Chief Complaint CARLO Subjective Ernesto was resting comfortably in bed this morning. No acute events overnight. He is breathing comfortably and continues to report overall improvement. No chest pain. No lightheadedness or dizziness. Appetite is good. Mckeon draining clear, yellow urine. Review of Systems A complete review of systems was performed. Pertinent positives are noted above. All other systems are negative. Vital Signs Last 8 Hrs Date Time Temp Pulse Resp B/P (MAP) Pulse Ox O2 Delivery O2 Flow Rate FiO2 02/01/18 07:36 36.0 46 22 100/52 (68) 97 Nasal Cannula 3.0 Last Recorded Weight Weight (Kilograms): 149.400 Physical Exam General Appearance: no apparent distress, + obese Head: normocephalic, atraumatic Eyes: normal inspection, sclerae normal ENT: normal ENT inspection, pharynx normal Neck: supple, no JVD Respiratory/Chest: no respiratory distress, no accessory muscle use, + decreased breath sounds, + rales (basilar) Cardiovascular: no gallop, + bradycardia, + systolic murmur, + irregularly irregular Abdomen/GI: non tender, soft Extremities/Musculoskelatal: non-tender, + pertinent finding (generalized edema , no cyanosis) Neurologic/Psych: alert, normal mood/affect, + disoriented Family History FH: diabetes mellitus FH: hypertension Myocardial infarction No family history of chronic kidney disease or end-stage renal disease. 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 Laboratory Results Past 24 Hours 02/01/18 05:42 02/01/18 05:42 Test 01/31/18 11:41 01/31/18 16:47 01/31/18 20:17 02/01/18 05:42 Bedside Glucose 187 mg/dl (70-99) 142 mg/dl (70-99) 162 mg/dl (70-99) Red Blood Count 2.87 M/uL (4.7-6.1) Mean Corpuscular Volume 100.3 fL (80-100) Mean Corpuscular Hemoglobin 32.4 pg (25-34) Mean Corpuscular Hemoglobin Concent 32.3 g/dl (32-36) RDW Standard Deviation 63.2 fL (36.4-46.3) RDW Coefficient of Variation 18.2 % (11.5-14.5) Mean Platelet Volume 9.3 fL (7.4-10.4) Nucleated RBC Absolute Count (auto) 0.02 K/uL (0-0) Nucleated Red Blood Cells % 0.3 % Platelet Estimate DECREASED Prothrombin Time 34.1 SECONDS (9.0-12.0) Prothromb Time International Ratio 3.3 (0.9-1.1) Anion Gap 9.0 mmol/L (3-11) Est Creatinine Clear Calc Drug Dose 22.1 ml/min Estimated GFR () 16.7 Estimated GFR (Non- 14.4 BUN/Creatinine Ratio 36.3 (10-20) Calcium Level 8.0 mg/dl (8.5-10.1) Phosphorus Level 5.8 mg/dl (2.5-4.9) Magnesium Level 3.3 mg/dl (1.8-2.4) Albumin 2.6 gm/dl (3.4-5.0) Test 02/01/18 07:34 Bedside Glucose 115 mg/dl (70-99) Allergies Coded Allergies: Amoxicillin (Unverified Allergy, Unknown, ., 01/22/18) CI Pigment Blue 63 (Unverified Allergy, Unknown, ., 01/22/18) Duloxetine (Unverified Allergy, Unknown, ., 01/22/18) Gabapentin (Unverified Allergy, Unknown, ., 01/22/18) Nitrofurantoin (Unverified Allergy, Unknown, ., 01/22/18) Pregabalin (Unverified Allergy, Unknown, ., 01/22/18) Chlorpheniramine (Verified Adverse Reaction, Intermediate, "CAUSE PROSTATE TO ENLARGE", 01/22/18) Linezolid (Verified Adverse Reaction, Intermediate, GI SYMPTOMS, 01/22/18) Concommitant GI bleed Phenylpropanolamine (Verified Adverse Reaction, Intermediate, "CAUSE PROSTATE TO ENLARGE"., 01/22/18) Medications Current Inpatient Medications Medications (Trade) Dose Ordered Sig/Sukhwinder Route Start Time Stop Time Status Last Admin Dose Admin Acetaminophen (Tylenol Tab) 650 mg Q4H PRN PO 01/22/18 10:45 02/21/18 10:44 01/31/18 18:39 650 MG Al Hydrox/Mg Hydrox/Simethicone (Maalox Max Susp) 15 ml Q4H PRN PO 01/22/18 10:45 02/21/18 10:44 Magnesium Hydroxide (Milk Of Magnesia Susp) 30 ml Q12H PRN PO 01/22/18 10:45 02/21/18 10:44 Ondansetron HCl (Zofran Inj) 4 mg Q6H PRN IV 01/22/18 10:45 02/21/18 10:44 Polyethylene (Miralax Powder Packet) 17 gm DAILY PRN PO 01/22/18 10:45 02/21/18 10:44 Glucose (Glucose 40% Gel) 15-30 GRAMS 15 GRAMS... UD PRN PO 01/22/18 10:45 02/21/18 10:44 Glucose (Glucose Chew Tab) 4-8 Tablets 4 Tabl... UD PRN PO 01/22/18 10:45 02/21/18 10:44 Dextrose (Dextrose 50% 50ML Syringe) 25-50ML 25ML FOR ... UD PRN IV 01/22/18 10:45 02/21/18 10:44 Glucagon (Glucagon Inj) 1 mg UD PRN SQ 01/22/18 10:45 02/21/18 10:44 Carbohydrates (Carbohydrates For Hypoglycemia) 15-30 GRAMS 15 grams if BSG 54-69... UD PRN PO 01/22/18 10:45 02/21/18 10:44 Insulin Aspart (novoLOG ASPART) SLIDING SCALE G... ACHS SC 01/22/18 11:00 02/21/18 10:59 01/31/18 20:54 1 UNITS Albuterol (Ventolin Hfa Inhaler) 2 puffs Q4 PRN INH 01/22/18 10:45 02/21/18 10:44 Albuterol/ Ipratropium (Duoneb) 3 ml TID PRN INH 01/22/18 10:45 02/21/18 10:44 Miconazole Nitrate (Desenex Powder) 1 appln DAILY PRN EXT 01/22/18 10:45 02/21/18 10:44 Oxcarbazepine (Trileptal Tab) 150 mg QAM PO 01/23/18 09:00 02/22/18 08:59 01/31/18 08:25 150 MG Oxcarbazepine (Trileptal Tab) 300 mg QPM PO 01/22/18 21:00 02/21/18 20:59 01/31/18 20:48 300 MG Simvastatin (Zocor Tab) 20 mg DAILY PO 01/23/18 09:00 02/22/18 08:59 Future Hold 01/27/18 07:42 20 MG Tamsulosin HCl (Flomax Cap) 0.4 mg BID PO 01/22/18 21:00 02/21/18 20:59 01/31/18 20:48 0.4 MG Finasteride (Proscar Tab) 5 mg QAM PO 01/23/18 09:00 02/22/18 08:59 01/31/18 08:25 5 MG Ferrous Sulfate (Feosol Tab) 325 mg QAM PO 01/23/18 09:00 02/22/18 08:59 Future hold 01/31/18 08:25 325 MG Calcitriol (Rocaltrol Cap) 0.25 mcg TuThSa@0900 PO 01/24/18 09:45 02/23/18 09:44 Future Hold 01/29/18 08:01 0.25 MCG Levothyroxine Sodium (Synthroid Tab) 125 mcg DAILYBB PO 01/31/18 06:00 02/22/18 05:59 01/31/18 09:29 125 MCG Salmeterol Xinafoate/ Fluticasone (Advair Diskus 250/50 Inh) 1 puff BID INH 01/31/18 20:00 03/02/18 19:59 01/31/18 20:56 1 PUFF Bumetanide 4 mg/ Syringe 16 ml @ 4 mls/min DAILY@ IV 02/01/18 09:00 03/02/18 16:59 Warfarin Sodium (Coumadin Tab) 3 mg DAILY@16 PO 02/01/18 16:00 02/28/18 15:59 UNV Impression (1) Acute kidney injury (2) Chronic kidney disease (3) Weakness (4) Anemia (5) BPH (benign prostatic hyperplasia) (6) CHF (congestive heart failure) (7) Hypertension (8) Secondary hyperparathyroidism of renal origin Mr. Avery is an 82-year-old male with CKD IV (baseline creatinine of 1.5-2.0) with multiple episodes of CARLO. Medical history is notable for CHF with right-sided heart failure and severe pulmonary hypertension , COPD, a recent history of osteomyelitis/bacteremia with osteomyelitis in the foot and infected sternal hardware. The patient has a bioprosthetic valve and was treated with an extended course of antibiotics following diagnosis of bacteremia in March 2017. Chad has atrial fibrillation with chronic bradycardia. Chad was admitted to the hospital with worsening shortness of breath and generalized weakness. He was found to have significant volume overload with CHF exacerbation and acute on chronic renal insufficiency. Patient has refused dialysis. Recommendations CARLO/CKD: -- Metabolic profile remains acceptable -- Bumex gtt discontinued yesterday, continue 4 mg BID with additional Diuril as needed to encourage UOP Acute on chronic diastolic CHF in setting of severe renal dysfunction/pulmonary hypertension/R heart failure: -- Continued diuresis -- Cardiology consult appreciated Aspiration: -- Speech evaluation Anemia: -- Epogen [id number] u on 01/30/18 ROPER/BPH: -- Chronic indwelling Mckeon Hypothyroidism: -- IV replacement
[2018-02-01] MEDS: BUMETANIDE IV 4 MG in SYRINGE 0 ML IV SCH ×2 (09:17→17:49)
[2018-02-01] MEDS: FINASTERIDE 5 MG TAB PO SCH (09:18)
[2018-02-01] MEDS: OXCARBAZEPINE 150 MG TAB PO SCH ×2 (09:18→21:08)
[2018-02-01] MEDS: TAMSULOSIN HCL 0.4 MG CAP PO SCH ×2 (09:18→21:08)
[2018-02-01] MEDS: LEVOTHYROXINE 125 MCG TAB PO SCH (09:18)
[2018-02-01] MEDS: FERROUS SULFATE 325 MG TAB PO SCH (09:18)
[2018-02-01] MEDS: FLUTICASONE/SALMETEROL 250/50 (ADVAIR) 14 PUFF/1 INHALER INH SCH ×2 (09:18→21:08)
[2018-02-01] MEDS: INSULIN ASPART 100 UNITS/ML 3 ML PEN SC SCH ×4 (09:20→21:12)
[2018-02-01] MEDS ORDERED: WARFARIN SOD 3 MG TAB PO SCH (16:00)
--- NOTE | 2018-02-01 16:40 | Progress Note ---
Subjective Date of Service: February 01, 2018. Subjective this pt is a bit more awake and alert than yesterday. He did pass a swallowing study is eating regular diet family is at the bedside and updated. I personally discussed this case with his insulation nozzleman this morning will proceed to trying to achieve bolus dosing of oral diuretics in the hopes of eventually transferring him to [facility] facility next few days Problem List Medical Problems: (1) Bleeding from PICC line Status: Acute (2) Cellulitis of left lower extremity Status: Acute (3) Chronic kidney disease Status: Acute (4) Dyspnea Status: Acute (5) Facial abrasion Status: Acute (6) Failure of outpatient treatment Status: Acute (7) Fever Status: Acute (8) Fever Status: Acute (9) Fever Status: Acute (10) Hypoxia Status: Acute (11) Lactic acid acidosis Status: Acute (12) Leukocytosis Status: Acute (13) Leukocytosis Status: Acute (14) Pneumonia Status: Acute (15) Renal failure Status: Acute (16) Sepsis Status: Acute (17) Sepsis Status: Acute (18) UTI (urinary tract infection) Status: Acute (19) UTI (urinary tract infection) Status: Acute (20) Weakness Status: Acute Review of Systems Constitutional: + weakness, + fatigue, No fever, No chills Respiratory: + shortness of breath, + dyspnea on exertion, + dyspnea at rest, No cough Cardiac: + edema, No chest pain Abdomen: No pain, No nausea, No vomiting, No diarrhea Musculoskeletal: No joint pain, No muscle pain Male : No dysuria, No urinary frequency Psychiatric: + depression symptoms, No anhedonism Objective Vital Signs Date Time Temp Pulse Resp B/P (MAP) Pulse Ox O2 Delivery O2 Flow Rate FiO2 02/01/18 15:44 35.9 44 16 121/62 (81) 100 Nasal Cannula 3.0 02/01/18 08:00 98 Nasal Cannula 3.0 02/01/18 07:36 36.0 46 22 100/52 (68) 97 Nasal Cannula 3.0 02/01/18 00:09 36.3 47 20 106/57 (73) 100 Nasal Cannula 4.0 02/01/18 00:00 100 Nasal Cannula 4.0 01/31/18 16:00 Nasal Cannula 3.0 CPAP Physical Exam General Appearance: WD/WN, + obese Neck: supple, no JVD Respiratory/Chest: chest non-tender, + respiratory distress, + decreased breath sounds, + accessory muscle use Cardiovascular: regular rate, rhythm, no murmur Abdomen: normal bowel sounds, non tender, soft Extremities: + pedal edema, + swelling (body wall swelling) Neurologic/Psychiatric: alert, oriented x 3 Laboratory Results Last 24 Hours Test 01/31/18 16:47 01/31/18 20:17 02/01/18 05:42 02/01/18 07:34 Bedside Glucose 142 mg/dl 162 mg/dl 115 mg/dl White Blood Count 5.32 K/uL Red Blood Count 2.87 M/uL Hemoglobin 9.3 g/dL Hematocrit 28.8 % Mean Corpuscular Volume 100.3 fL Mean Corpuscular Hemoglobin 32.4 pg Mean Corpuscular Hemoglobin Concent 32.3 g/dl RDW Standard Deviation 63.2 fL RDW Coefficient of Variation 18.2 % Platelet Count 96 K/uL Mean Platelet Volume 9.3 fL Nucleated RBC Absolute Count (auto) 0.02 K/uL Nucleated Red Blood Cells % 0.3 % Platelet Estimate DECREASED Prothrombin Time 34.1 SECONDS Prothromb Time International Ratio 3.3 Sodium Level 143 mmol/L Potassium Level 3.6 mmol/L Chloride Level 105 mmol/L Carbon Dioxide Level 29 mmol/L Anion Gap 9.0 mmol/L Blood Urea Nitrogen 134 mg/dl Creatinine 3.68 mg/dl Est Creatinine Clear Calc Drug Dose 22.1 ml/min Estimated GFR () 16.7 Estimated GFR (Non- 14.4 BUN/Creatinine Ratio 36.3 Random Glucose 110 mg/dl Calcium Level 8.0 mg/dl Phosphorus Level 5.8 mg/dl Magnesium Level 3.3 mg/dl Albumin 2.6 gm/dl Test 02/01/18 11:21 Bedside Glucose 169 mg/dl Assessment and Plan 82 y/o male presented with Hypothermia and SOB, with indwelling rucker cath for urinary outlet obstructio, has a history of CAD, h/o [place] s/p CABG x 2 2007, HTN, HLD, chronic diastolic CHF, a-fib, COPD, DM II with neuropathy, hypothyroidism, JACEK, CKD stage III-IV, lymphedema, EVENS, and urinary retention Possible sepsis, UTI poa chronic Rucker -1 of 2 blood cultures positive for coag negative staph, not lugdunensis, likely contamination -UA positive for yeast, urine culture positive for yeast not monty albicans Diflucan 100 mg PO qd x 7 d Bradycardia, hypothermia, history of Afib on Anticoagulation, did have high TSH and low T4 on presentation and is no thyroid supplementation, pt states he is taking his meds, will give IV synthroid and increased synthroid to 125 01/30, did check am cortisol and was appropriate and stopped Decadron, did not have clinical response anyway Coagulopathy from coumadin, additional Vitamin K given 01/28 follow INR while lowering dose of Coumadin Acute on chronic diastolic CHF in the face of CKD4 -diuretic dosing per nephrology oversight, using Diuril bolus and bumex continual infusion transition to bolus 01/31 -Fluid restriction 1500 mL Nephrology is following pt Acute respiratory distress with hypoxia, likely from diastolic heart failure, obesity also influences work of breathing will use Cpap hs, his morbid obesity affects this too Acute Kidney Injury resolve, CKD stage 4 but stable, continue Calcitrol CAD, h/o [place], CABG, HTN, HLD--given overall ill state and previously elevated INR will hold statin A-fib, remains bradycardic, possibly secondary to hypothyroidism, did increase meds a bit to see COPD--only requiring advair DuoNeb, albuterol inhaler, does have baseline mild respiratory distress DM II w/neuropathy--last HgbA1c 7.1 on 11/14/17 -Hold 70/30-Insulin sliding scale -Continue Trileptal 150 mg PO qam and 300 mg PO hs, due to renal function will reduce dose to see if helps with tiredness Iron Deficiency anemia--stable ferrous sulfate, Epogen x 1 on 01/24 [place] CPAP w/2L NC at night Urinary retention rucker Flomax BID converted Avodart to Proscar 5 mg PO qd DVT prophylaxis-SARBJIT lora and SCDs Code Status -Level III, -Pt states he wants to be DNR
[2018-02-01] MEDS ORDERED: MICONAZOLE NITRATE POWDER 43 GM EXT PRN (22:30)
[2018-02-02] VITALS (7 sets, daily range): BP systolic 97–122; BP diastolic 51–71; PULSE 53–68; TEMP 36.5–37; O2SAT 96–99
[2018-02-02] MEDS: LEVOTHYROXINE 125 MCG TAB PO SCH (06:40)
[2018-02-02] MEDS: FLUTICASONE/SALMETEROL 250/50 (ADVAIR) 14 PUFF/1 INHALER INH SCH ×2 (08:12→20:00)
[2018-02-02] MEDS: FINASTERIDE 5 MG TAB PO SCH (08:13)
[2018-02-02] MEDS: OXCARBAZEPINE 150 MG TAB PO SCH ×2 (08:13→20:23)
[2018-02-02] MEDS: TAMSULOSIN HCL 0.4 MG CAP PO SCH ×2 (08:13→20:00)
[2018-02-02] MEDS: BUMETANIDE IV 4 MG in SYRINGE 0 ML IV SCH (08:13)
[2018-02-02 09:04] LABS: HEMATOCRIT 29.4 % (42-52); HEMOGLOBIN 9.8 g/dL (14.0-18.0); MEAN CORPUSCULAR HEMOGLOBIN 33.3 pg (25-34); MEAN CORPUSCULAR HGB CONC 33.3 g/dl (32-36); MEAN PLATELET VOLUME 9.5 fL (7.4-10.4); PLATELET COUNT 105 K/uL (130-400); RED CELL DISTRIBUTION WIDTH CV 18.3 % (11.5-14.5); RED CELL DISTRIBUTION WIDTH SD 64.6 fL (36.4-46.3); WHITE BLOOD COUNT 8.22 K/uL (4.8-10.8)
[2018-02-02] MEDS: FERROUS SULFATE 325 MG TAB PO SCH (09:07)
[2018-02-02] MEDS: INSULIN ASPART 100 UNITS/ML 3 ML PEN SC SCH ×4 (09:15→20:20)
[2018-02-02] MEDS: ACETAMINOPHEN 325 MG TAB PO PRN (09:27)
[2018-02-02 09:36] LABS: ALBUMIN 2.9 gm/dl (3.4-5.0); CALCIUM 8.4 mg/dl (8.5-10.1); CREATININE 3.58 mg/dl (0.60-1.40); PHOSPHORUS 5.2 mg/dl (2.5-4.9); POTASSIUM 3.8 mmol/L (3.5-5.1)
[2018-02-02 09:41] LABS: INR 5.2 (0.9-1.1)
--- NOTE | 2018-02-02 10:15 | Nephrology Progress Note ---
Nephrology Progress Note Date of Service February 02, 2018. Chief Complaint CARLO / CKD Subjective Mr. Avery was seen & examined in his hospital room this morning. His daughter Monica was present at bedside. Mr. Avery remains weak. He voiced no medical concerns. Review of Systems Constitutional: No fever Cardiovascular: No chest pain Respiratory: No dyspnea at rest Abdomen: No pain Extremities: + leg edema A complete review of systems was performed. Pertinent positives are noted above. All other systems are negative. Vital Signs Last 8 Hrs Date Time Temp Pulse Resp B/P (MAP) Pulse Ox O2 Delivery O2 Flow Rate FiO2 02/02/18 08:44 36.7 53 22 97/51 (66) 98 3.0 02/02/18 08:00 98 Nasal Cannula 3.0 Last Recorded Weight Weight (Kilograms): 149.400 Physical Exam General Appearance: + pertinent finding (weak, chronically ill appearing) Head: atraumatic Eyes: PERRL, EOMI Neck: no adenopathy Respiratory/Chest: + crackles (at bases bilaterally) Cardiovascular: regular rate, rhythm Abdomen/GI: normal bowel sounds, non tender, + distended Genitourinary - Male: + pertinent finding (rucker catheter in place draining clear yellow urine) Extremities/Musculoskelatal: + pertinent finding (poor skin turgor involving the arms. 3+ pretibial pitting edema) Neurologic/Psych: alert (answers only simple yes / no questions) Family History FH: diabetes mellitus FH: hypertension Myocardial infarction No family history of chronic kidney disease or end-stage renal disease. 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 Laboratory Results Past 24 Hours 02/02/18 08:45 02/02/18 08:45 Test 02/01/18 11:21 02/01/18 16:39 02/01/18 20:48 02/02/18 07:43 Bedside Glucose 169 mg/dl (70-99) 160 mg/dl (70-99) 157 mg/dl (70-99) 130 mg/dl (70-99) Test 02/02/18 08:45 Red Blood Count 2.94 M/uL (4.7-6.1) Mean Corpuscular Volume 100.0 fL (80-100) Mean Corpuscular Hemoglobin 33.3 pg (25-34) Mean Corpuscular Hemoglobin Concent 33.3 g/dl (32-36) RDW Standard Deviation 64.6 fL (36.4-46.3) RDW Coefficient of Variation 18.3 % (11.5-14.5) Mean Platelet Volume 9.5 fL (7.4-10.4) Prothrombin Time 52.4 SECONDS (9.0-12.0) Prothromb Time International Ratio 5.2 (0.9-1.1) Anion Gap 9.0 mmol/L (3-11) Est Creatinine Clear Calc Drug Dose 22.7 ml/min Estimated GFR () 17.3 Estimated GFR (Non- 14.9 BUN/Creatinine Ratio 38.5 (10-20) Calcium Level 8.4 mg/dl (8.5-10.1) Phosphorus Level 5.2 mg/dl (2.5-4.9) Albumin 2.9 gm/dl (3.4-5.0) Allergies Coded Allergies: Amoxicillin (Unverified Allergy, Unknown, ., 01/22/18) CI Pigment Blue 63 (Unverified Allergy, Unknown, ., 01/22/18) Duloxetine (Unverified Allergy, Unknown, ., 01/22/18) Gabapentin (Unverified Allergy, Unknown, ., 01/22/18) Nitrofurantoin (Unverified Allergy, Unknown, ., 01/22/18) Pregabalin (Unverified Allergy, Unknown, ., 01/22/18) Chlorpheniramine (Verified Adverse Reaction, Intermediate, "CAUSE PROSTATE TO ENLARGE", 01/22/18) Linezolid (Verified Adverse Reaction, Intermediate, GI SYMPTOMS, 01/22/18) Concommitant GI bleed Phenylpropanolamine (Verified Adverse Reaction, Intermediate, "CAUSE PROSTATE TO ENLARGE"., 01/22/18) Medications Current Inpatient Medications Medications (Trade) Dose Ordered Sig/Sukhwinder Route Start Time Stop Time Status Last Admin Dose Admin Acetaminophen (Tylenol Tab) 650 mg Q4H PRN PO 01/22/18 10:45 02/21/18 10:44 02/02/18 09:27 650 MG Al Hydrox/Mg Hydrox/Simethicone (Maalox Max Susp) 15 ml Q4H PRN PO 01/22/18 10:45 02/21/18 10:44 Magnesium Hydroxide (Milk Of Magnesia Susp) 30 ml Q12H PRN PO 01/22/18 10:45 02/21/18 10:44 Ondansetron HCl (Zofran Inj) 4 mg Q6H PRN IV 01/22/18 10:45 02/21/18 10:44 Polyethylene (Miralax Powder Packet) 17 gm DAILY PRN PO 01/22/18 10:45 02/21/18 10:44 Glucose (Glucose 40% Gel) 15-30 GRAMS 15 GRAMS... UD PRN PO 01/22/18 10:45 02/21/18 10:44 Glucose (Glucose Chew Tab) 4-8 Tablets 4 Tabl... UD PRN PO 01/22/18 10:45 02/21/18 10:44 Dextrose (Dextrose 50% 50ML Syringe) 25-50ML 25ML FOR ... UD PRN IV 01/22/18 10:45 02/21/18 10:44 Glucagon (Glucagon Inj) 1 mg UD PRN SQ 01/22/18 10:45 02/21/18 10:44 Carbohydrates (Carbohydrates For Hypoglycemia) 15-30 GRAMS 15 grams if BSG 54-69... UD PRN PO 01/22/18 10:45 02/21/18 10:44 Insulin Aspart (novoLOG ASPART) SLIDING SCALE G... ACHS SC 01/22/18 11:00 02/21/18 10:59 02/02/18 09:15 4 UNITS Albuterol (Ventolin Hfa Inhaler) 2 puffs Q4 PRN INH 01/22/18 10:45 02/21/18 10:44 Albuterol/ Ipratropium (Duoneb) 3 ml TID PRN INH 01/22/18 10:45 02/21/18 10:44 Miconazole Nitrate (Desenex Powder) 1 appln DAILY PRN EXT 01/22/18 10:45 02/21/18 10:44 Oxcarbazepine (Trileptal Tab) 150 mg QAM PO 01/23/18 09:00 02/22/18 08:59 02/02/18 08:13 150 MG Oxcarbazepine (Trileptal Tab) 300 mg QPM PO 01/22/18 21:00 02/21/18 20:59 02/01/18 21:08 300 MG Simvastatin (Zocor Tab) 20 mg DAILY PO 01/23/18 09:00 02/22/18 08:59 Future Hold 01/27/18 07:42 20 MG Tamsulosin HCl (Flomax Cap) 0.4 mg BID PO 01/22/18 21:00 02/21/18 20:59 02/02/18 08:13 0.4 MG Finasteride (Proscar Tab) 5 mg QAM PO 01/23/18 09:00 02/22/18 08:59 02/02/18 08:13 5 MG Ferrous Sulfate (Feosol Tab) 325 mg QAM PO 01/23/18 09:00 02/22/18 08:59 Future hold 02/02/18 09:07 325 MG Calcitriol (Rocaltrol Cap) 0.25 mcg TuThSa@0900 PO 01/24/18 09:45 02/23/18 09:44 Future Hold 01/29/18 08:01 0.25 MCG Levothyroxine Sodium (Synthroid Tab) 125 mcg DAILYBB PO 01/31/18 06:00 02/22/18 05:59 02/02/18 06:40 125 MCG Salmeterol Xinafoate/ Fluticasone (Advair Diskus 250/50 Inh) 1 puff BID INH 01/31/18 20:00 03/02/18 19:59 02/02/18 08:12 1 PUFF Bumetanide 4 mg/ Syringe 16 ml @ 4 mls/min DAILY@17 IV 02/01/18 09:00 03/02/18 16:59 02/02/18 08:13 4 MLS/MIN Warfarin Sodium (Coumadin Tab) 3 mg DAILY@16 PO 02/01/18 16:00 02/28/18 15:59 02/01/18 15:49 3 MG Miconazole Nitrate (Desenex Powder) 1 appln PRN PRN EXT 02/01/18 22:30 03/03/18 22:29 Impression (1) Acute kidney injury (2) Chronic kidney disease (3) Weakness (4) Anemia (5) BPH (benign prostatic hyperplasia) (6) CHF (congestive heart failure) (7) Hypertension (8) Secondary hyperparathyroidism of renal origin Mr. Avery is an 82-year-old male with CKD IV (baseline creatinine of 1.5-2.0) with multiple episodes of CARLO. Medical history is notable for CHF with right-sided heart failure and severe pulmonary hypertension , COPD, a recent history of osteomyelitis/bacteremia with osteomyelitis in the foot and infected sternal hardware. The patient has a bioprosthetic valve and was treated with an extended course of antibiotics following diagnosis of bacteremia in March 2017. Chad has atrial fibrillation with chronic bradycardia. Chad was admitted to the hospital with worsening shortness of breath and generalized weakness. He was found to have significant volume overload with CHF exacerbation and acute on chronic renal insufficiency. Patient has refused dialysis. Recommendations CARLO/CKD: -- Metabolic profile remains acceptable -- Patient is now on Bumex 4 mg IV BID and is diuresing well, but is developing progressive azotemia. Will reduce Bumex to 2 mg IV BID Aspiration: -- Consider speech evaluation Anemia: -- Epogen [id number] u on 01/30/18 ROPER/BPH: -- Chronic indwelling Rucker Hypothyroidism: -- IV replacement
[2018-02-02] MEDS ORDERED: MoRPHine SULFATE 4 MG/ML 1 ML CARP\\VIAL ONE (10:18)
--- NOTE | 2018-02-02 11:51 | Progress Note ---
Subjective Date of Service: February 02, 2018. Subjective this pt is still about the same, still with significant body edema and now developing progressive azotemia, still with hypothermia and some lower heart rates, has non descript body pains. Nephrology has reduced bumex, overall prognosis is now worsening as not improved total body swelling despite attempted diuresis Problem List Medical Problems: (1) Bleeding from PICC line Status: Acute (2) Cellulitis of left lower extremity Status: Acute (3) Chronic kidney disease Status: Acute (4) Dyspnea Status: Acute (5) Facial abrasion Status: Acute (6) Failure of outpatient treatment Status: Acute (7) Fever Status: Acute (8) Fever Status: Acute (9) Fever Status: Acute (10) Hypoxia Status: Acute (11) Lactic acid acidosis Status: Acute (12) Leukocytosis Status: Acute (13) Leukocytosis Status: Acute (14) Pneumonia Status: Acute (15) Renal failure Status: Acute (16) Sepsis Status: Acute (17) Sepsis Status: Acute (18) UTI (urinary tract infection) Status: Acute (19) UTI (urinary tract infection) Status: Acute (20) Weakness Status: Acute Review of Systems Constitutional: + weakness, + fatigue, No fever, No chills Respiratory: + shortness of breath, + dyspnea on exertion, + dyspnea at rest, No cough Cardiac: + edema, No chest pain Abdomen: No pain, No nausea, No vomiting, No diarrhea Musculoskeletal: + joint pain, + muscle pain Neurologic: + weakness, + balance problems, No memory loss Psychiatric: + depression symptoms, + anhedonism, + anxiety Objective Vital Signs Date Time Temp Pulse Resp B/P (MAP) Pulse Ox O2 Delivery O2 Flow Rate FiO2 02/02/18 08:44 36.7 53 22 97/51 (66) 98 3.0 02/02/18 08:00 98 Nasal Cannula 3.0 02/02/18 00:00 CPAP 3.0 02/01/18 23:23 36.3 49 16 119/67 (84) 96 BiPAP 02/01/18 16:00 100 Nasal Cannula 3.0 35 02/01/18 16:00 47 18 94 Room Air 02/01/18 15:44 35.9 44 16 121/62 (81) 100 Nasal Cannula 3.0 Physical Exam General Appearance: WD/WN, + moderate distress, + obese Neck: supple, no JVD Respiratory/Chest: chest non-tender, + decreased breath sounds, + accessory muscle use Cardiovascular: regular rate, rhythm, + systolic murmur Abdomen: normal bowel sounds, non tender, soft Extremities: + pedal edema, + swelling Neurologic/Psychiatric: alert, oriented x 3 Laboratory Results Last 24 Hours Test 02/01/18 16:39 02/01/18 20:48 02/02/18 07:43 02/02/18 08:45 Bedside Glucose 160 mg/dl 157 mg/dl 130 mg/dl White Blood Count 8.22 K/uL Red Blood Count 2.94 M/uL Hemoglobin 9.8 g/dL Hematocrit 29.4 % Mean Corpuscular Volume 100.0 fL Mean Corpuscular Hemoglobin 33.3 pg Mean Corpuscular Hemoglobin Concent 33.3 g/dl RDW Standard Deviation 64.6 fL RDW Coefficient of Variation 18.3 % Platelet Count 105 K/uL Mean Platelet Volume 9.5 fL Prothrombin Time 52.4 SECONDS Prothromb Time International Ratio 5.2 Sodium Level 143 mmol/L Potassium Level 3.8 mmol/L Chloride Level 104 mmol/L Carbon Dioxide Level 30 mmol/L Anion Gap 9.0 mmol/L Blood Urea Nitrogen 138 mg/dl Creatinine 3.58 mg/dl Est Creatinine Clear Calc Drug Dose 22.7 ml/min Estimated GFR () 17.3 Estimated GFR (Non- 14.9 BUN/Creatinine Ratio 38.5 Random Glucose 121 mg/dl Calcium Level 8.4 mg/dl Phosphorus Level 5.2 mg/dl Albumin 2.9 gm/dl Assessment and Plan 82 y/o male presented with Hypothermia and SOB, with indwelling rucker cath for urinary outlet obstructio, has a history of CAD, h/o [place] s/p CABG x 2 2007, HTN, HLD, chronic diastolic CHF, a-fib, COPD, DM II with neuropathy, hypothyroidism, JACEK, CKD stage III-IV, lymphedema, EVENS, and urinary retention I had been recalled to room in afternoon, spoke to his daughters, updated about the worsening lab work, we discussed all options, in total spent additional 35 minutes discussing, decision to include and their brother to likely move toward comfort care measures on 02/03. will continue care as is until all are contacted. Acute renal failure with baseline CKD, pt seems to have set his new baseline to CKD 4, concern that pt has developed azotemia now has required nephrology to reduce bumex to 2mg bid, continue Calcitrol, I fear without controlling third space edema, we will have issues with skin breakdown and hepatic congestion perhaps now showing as coumadin associated coagulopathy, will try some albumin preceeding the bumex Possible sepsis, UTI poa chronic Rucker -1 of 2 blood cultures positive for coag negative staph, not lugdunensis, likely contamination -UA positive for yeast, urine culture positive for yeast not monty albicans Diflucan 100 mg PO qd x 7 d Bradycardia, hypothermia, history of Afib on Anticoagulation, did have high TSH and low T4 on presentation and is no thyroid supplementation, pt states he is taking his meds, will give IV synthroid and increased synthroid to 125 01/30, did check am cortisol and was appropriate and stopped Decadron, did not have clinical response anyway Coagulopathy from coumadin, additional Vitamin K given 01/28 follow, persistent eleveated INR hold coumadin and lower dose Acute on chronic diastolic CHF in the face of CKD4 -diuretic dosing per nephrology oversight, will try albumin with bumex -Fluid restriction 1500 mL Nephrology is following pt, outlook has worsened with increasing azotemia Acute respiratory distress with hypoxia, likely from diastolic heart failure, obesity also influences work of breathing will use Cpap hs, his morbid obesity affects this too CAD, h/o [place], CABG, HTN, HLD--given overall ill state and previously elevated INR will hold statin A-fib, remains bradycardic, possibly secondary to hypothyroidism, did increase meds a bit to see COPD--only requiring advair DuoNeb, albuterol inhaler, does have baseline mild respiratory distress DM II w/neuropathy--last HgbA1c 7.1 on 11/14/17 -Hold 70/30-Insulin sliding scale -Continue typically on Trileptal 150 mg PO qam and 300 mg PO hs, due to renal function will reduce dose to see if helps with tiredness Iron Deficiency anemia--stable ferrous sulfate, Epogen x 1 on 01/24 [place] CPAP w/2L NC at night Urinary retention rucker Flomax BID converted Avodart to Proscar 5 mg PO qd DVT prophylaxis-SARBJIT lora and SCDs Code Status, -Pt states he wants to be DNR
[2018-02-02] MEDS ORDERED: LORAZEPAM 2 MG/ML 1 ML VIAL IV PRN (14:45)
[2018-02-02] MEDS: MoRPHine SULFATE 4 MG/ML 1 ML CARP\\VIAL IV PRN ×2 (15:46→21:51)
[2018-02-02] MEDS: ALBUMIN HUMAN 25% 12.5 GM/50 ML VIAL IV SCH (18:10)
[2018-02-02] MEDS: BUMETANIDE IV 2 MG in SYRINGE 0 ML IV SCH (18:11)
[2018-02-03] MEDS: LEVOTHYROXINE 125 MCG TAB PO SCH ×2 (06:19→06:21)
[2018-02-03] MEDS: INSULIN ASPART 100 UNITS/ML 3 ML PEN SC SCH (06:30)
[2018-02-03 06:35] LABS: INR 7.8 (0.9-1.1)
[2018-02-03] MEDS: BUMETANIDE IV 2 MG in SYRINGE 0 ML IV SCH (07:45)
[2018-02-03] MEDS: ALBUMIN HUMAN 25% 12.5 GM/50 ML VIAL IV SCH (07:45)
[2018-02-03] MEDS: FLUTICASONE/SALMETEROL 250/50 (ADVAIR) 14 PUFF/1 INHALER INH SCH ×2 (07:51→19:44)
[2018-02-03] MEDS ORDERED: PHYTONADIONE 5 MG TAB PO STA (07:53)
[2018-02-03 08:22] VITALS: BP 105/63; PULSE 60; TEMP 36.7; O2SAT 97
[2018-02-03] MEDS: OXCARBAZEPINE 150 MG TAB PO SCH ×2 (08:29→19:44)
[2018-02-03 10:04] LABS: CALCIUM 8.4 mg/dl (8.5-10.1); CREATININE 3.56 mg/dl (0.60-1.40)
--- NOTE | 2018-02-03 10:15 | Nephrology Progress Note ---
Nephrology Progress Note Date of Service February 03, 2018. Chief Complaint CARLO / CKD Subjective Mr. Avery is somnolent on CPAP therapy this am. and son are present at bedside. Review of Systems Patient unable to provide ROS Vital Signs Last 8 Hrs Date Time Temp Pulse Resp B/P (MAP) Pulse Ox O2 Delivery O2 Flow Rate FiO2 02/03/18 08:22 36.7 60 22 105/63 (77) 97 3.0 02/03/18 08:00 Nasal Cannula 3.0 35 CPAP Last Recorded Weight Weight (Kilograms): 149.400 Physical Exam Head: atraumatic Eyes: PERRL Neck: no adenopathy Respiratory/Chest: no respiratory distress Cardiovascular: regular rate, rhythm Abdomen/GI: non tender, soft Extremities/Musculoskelatal: no pedal edema Neurologic/Psych: + pertinent finding (somnolent) Family History FH: diabetes mellitus FH: hypertension Myocardial infarction No family history of chronic kidney disease or end-stage renal disease. 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 Laboratory Results Past 24 Hours 02/03/18 09:27 Test 02/02/18 11:57 02/02/18 16:44 02/02/18 20:04 02/03/18 05:26 Bedside Glucose 139 mg/dl (70-99) 138 mg/dl (70-99) 133 mg/dl (70-99) Prothrombin Time 79.1 SECONDS (9.0-12.0) Prothromb Time International Ratio 7.8 (0.9-1.1) Test 02/03/18 08:01 02/03/18 09:27 Bedside Glucose 133 mg/dl (70-99) Anion Gap 12.0 mmol/L (3-11) Est Creatinine Clear Calc Drug Dose 22.8 ml/min Estimated GFR () 17.4 Estimated GFR (Non- 15.0 BUN/Creatinine Ratio 39.4 (10-20) Calcium Level 8.4 mg/dl (8.5-10.1) Allergies Coded Allergies: Amoxicillin (Unverified Allergy, Unknown, ., 01/22/18) CI Pigment Blue 63 (Unverified Allergy, Unknown, ., 01/22/18) Duloxetine (Unverified Allergy, Unknown, ., 01/22/18) Gabapentin (Unverified Allergy, Unknown, ., 01/22/18) Nitrofurantoin (Unverified Allergy, Unknown, ., 01/22/18) Pregabalin (Unverified Allergy, Unknown, ., 01/22/18) Chlorpheniramine (Verified Adverse Reaction, Intermediate, "CAUSE PROSTATE TO ENLARGE", 01/22/18) Linezolid (Verified Adverse Reaction, Intermediate, GI SYMPTOMS, 01/22/18) Concommitant GI bleed Phenylpropanolamine (Verified Adverse Reaction, Intermediate, "CAUSE PROSTATE TO ENLARGE"., 01/22/18) Medications Current Inpatient Medications Medications (Trade) Dose Ordered Sig/Sukhwinder Route Start Time Stop Time Status Last Admin Dose Admin Acetaminophen (Tylenol Tab) 650 mg Q4H PRN PO 01/22/18 10:45 02/21/18 10:44 02/02/18 09:27 650 MG Al Hydrox/Mg Hydrox/Simethicone (Maalox Max Susp) 15 ml Q4H PRN PO 01/22/18 10:45 02/21/18 10:44 Magnesium Hydroxide (Milk Of Magnesia Susp) 30 ml Q12H PRN PO 01/22/18 10:45 02/21/18 10:44 Ondansetron HCl (Zofran Inj) 4 mg Q6H PRN IV 01/22/18 10:45 02/21/18 10:44 Polyethylene (Miralax Powder Packet) 17 gm DAILY PRN PO 01/22/18 10:45 02/21/18 10:44 Glucose (Glucose 40% Gel) 15-30 GRAMS 15 GRAMS... UD PRN PO 01/22/18 10:45 02/21/18 10:44 Glucose (Glucose Chew Tab) 4-8 Tablets 4 Tabl... UD PRN PO 01/22/18 10:45 02/21/18 10:44 Dextrose (Dextrose 50% 50ML Syringe) 25-50ML 25ML FOR ... UD PRN IV 01/22/18 10:45 02/21/18 10:44 Glucagon (Glucagon Inj) 1 mg UD PRN SQ 01/22/18 10:45 02/21/18 10:44 Carbohydrates (Carbohydrates For Hypoglycemia) 15-30 GRAMS 15 grams if BSG 54-69... UD PRN PO 01/22/18 10:45 02/21/18 10:44 Insulin Aspart (novoLOG ASPART) SLIDING SCALE G... ACHS SC 01/22/18 11:00 02/21/18 10:59 02/02/18 09:15 4 UNITS Albuterol (Ventolin Hfa Inhaler) 2 puffs Q4 PRN INH 01/22/18 10:45 02/21/18 10:44 Albuterol/ Ipratropium (Duoneb) 3 ml TID PRN INH 01/22/18 10:45 02/21/18 10:44 Oxcarbazepine (Trileptal Tab) 150 mg QAM PO 01/23/18 09:00 02/22/18 08:59 02/03/18 08:29 150 MG Oxcarbazepine (Trileptal Tab) 300 mg QPM PO 01/22/18 21:00 02/21/18 20:59 02/01/18 21:08 300 MG Salmeterol Xinafoate/ Fluticasone (Advair Diskus 250/50 Inh) 1 puff BID INH 01/31/18 20:00 03/02/18 19:59 02/02/18 08:12 1 PUFF Miconazole Nitrate (Desenex Powder) 1 appln PRN PRN EXT 02/01/18 22:30 03/03/18 22:29 Morphine Sulfate (MoRPHine SULFATE INJ) 2 mg Q4H PRN IV 02/02/18 10:15 02/16/18 10:14 02/02/18 21:51 2 MG Morphine Sulfate (MoRPHine SULFATE INJ) 4 mg Q4H PRN IV 02/02/18 10:15 02/16/18 10:14 02/02/18 15:46 4 MG Lorazepam (Ativan Inj) 0.5 mg Q4H PRN IV 02/02/18 14:45 03/04/18 14:44 Lorazepam (Ativan Inj) 1 mg Q4H PRN IV 02/02/18 14:45 03/04/18 14:44 Impression (1) Acute kidney injury (2) Chronic kidney disease (3) Weakness (4) Anemia (5) BPH (benign prostatic hyperplasia) (6) CHF (congestive heart failure) (7) Hypertension (8) Secondary hyperparathyroidism of renal origin Mr. Avery is an 82-year-old male with CKD IV (baseline creatinine of 1.5-2.0) with multiple episodes of CARLO. Medical history is notable for CHF with right-sided heart failure and severe pulmonary hypertension , COPD, a recent history of osteomyelitis/bacteremia with osteomyelitis in the foot and infected sternal hardware. The patient has a bioprosthetic valve and was treated with an extended course of antibiotics following diagnosis of bacteremia in March 2017. Chad has atrial fibrillation with chronic bradycardia. Chad was admitted to the hospital with worsening shortness of breath and generalized weakness. He was found to have significant volume overload with CHF exacerbation and acute on chronic renal insufficiency. Patient has refused dialysis. Recommendations Discussed medical management with Mr. Avery's family this morning. Despite reducing diuretics azotemia continues to worsen. Family has reaffirmed that they do not wish to escalate care. They do not wish to pursue HD. Their primary focus is on Mr. Avery's comfort. They wish to provide comfort measures at this time and will meet with hospice tomorrow. No further Nephrology evaluation indicated at this time. Will sign off. Please call if further assistance is needed.
--- NOTE | 2018-02-03 11:03 | Progress Note ---
Subjective Date of Service: February 03, 2018. Subjective pt is mostly obtunded today, family is at bedside and reconfirms that wishes are to pursue comfort measures. pt appears comfortable except for moments of coughing Problem List Medical Problems: (1) Bleeding from PICC line Status: Acute (2) Cellulitis of left lower extremity Status: Acute (3) Chronic kidney disease Status: Acute (4) Dyspnea Status: Acute (5) Facial abrasion Status: Acute (6) Failure of outpatient treatment Status: Acute (7) Fever Status: Acute (8) Fever Status: Acute (9) Fever Status: Acute (10) Hypoxia Status: Acute (11) Lactic acid acidosis Status: Acute (12) Leukocytosis Status: Acute (13) Leukocytosis Status: Acute (14) Pneumonia Status: Acute (15) Renal failure Status: Acute (16) Sepsis Status: Acute (17) Sepsis Status: Acute (18) UTI (urinary tract infection) Status: Acute (19) UTI (urinary tract infection) Status: Acute (20) Weakness Status: Acute Review of Systems Constitutional: + problem reported (ros cannot be obtained due to declined mental alertness) Objective Vital Signs Date Time Temp Pulse Resp B/P (MAP) Pulse Ox O2 Delivery O2 Flow Rate FiO2 02/03/18 08:22 36.7 60 22 105/63 (77) 97 3.0 02/03/18 08:00 Nasal Cannula 3.0 35 CPAP 02/03/18 00:00 Nasal Cannula 3.0 CPAP 02/02/18 23:13 37.0 68 21 117/56 (76) 96 Nasal Cannula 3.0 02/02/18 19:15 36.5 58 20 122/67 (85) 99 Nasal Cannula 3.0 02/02/18 18:11 58 19 106/60 (75) 98 Nasal Cannula 3.0 02/02/18 16:00 97 Nasal Cannula 3.0 35 02/02/18 15:03 36.6 62 24 109/71 (84) 97 3.0 Physical Exam General Appearance: + moderate distress, + obese Eyes: normal inspection, sclerae normal Respiratory/Chest: + decreased breath sounds, + accessory muscle use, + rhonchi Cardiovascular: regular rate, rhythm, + systolic murmur Abdomen: + abnormal bowel sounds, + distended Extremities: + pedal edema, + swelling (body wall) Laboratory Results Last 24 Hours Test 02/02/18 11:57 02/02/18 16:44 02/02/18 20:04 02/03/18 05:26 Bedside Glucose 139 mg/dl 138 mg/dl 133 mg/dl Prothrombin Time 79.1 SECONDS Prothromb Time International Ratio 7.8 Test 02/03/18 08:01 02/03/18 09:27 Bedside Glucose 133 mg/dl Sodium Level 145 mmol/L Potassium Level 4.0 mmol/L Chloride Level 105 mmol/L Carbon Dioxide Level 28 mmol/L Anion Gap 12.0 mmol/L Blood Urea Nitrogen 140 mg/dl Creatinine 3.56 mg/dl Est Creatinine Clear Calc Drug Dose 22.8 ml/min Estimated GFR () 17.4 Estimated GFR (Non- 15.0 BUN/Creatinine Ratio 39.4 Random Glucose 129 mg/dl Calcium Level 8.4 mg/dl Assessment and Plan 82 y/o male presented with Hypothermia and SOB, with indwelling rucker cath for urinary outlet obstructio, has a history of CAD, h/o [place] s/p CABG x 2 2007, HTN, HLD, chronic diastolic CHF, a-fib, COPD, DM II with neuropathy, hypothyroidism, JACEK, CKD stage III-IV, lymphedema, EVENS, and urinary retention I had been recalled to room in afternoon of 02/02, spoke to his daughters, updated about the worsening lab work, we discussed all options, today after meeting with and their brother familiy wishes to move to comfort care measures stopping all meds and lab testing except those geared toward comfort, is expected in the next week Acute renal failure w baseline to CKD third space edema, we will have issues with skin breakdown and hepatic congestion elevated INR will give vitamin K to prevent coumadin induced hemorrhage Possible sepsis, UTI poa chronic Rucker Bradycardia, hypothermia, history of Afib on Anticoagulation, did have high TSH and low T4 on presentation Coagulopathy from coumadin, additional Vitamin K Acute on chronic diastolic CHF in the face of CKD4 -diuretic dosing per nephrology oversight had only worsening affect on azotemia , ,suspect toxic encephalopathy at this time with pt not a dialysis candidate Acute respiratory distress with hypoxia, likely from diastolic heart failure, obesity also influences work of breathing will use Cpap CAD, h/o [place], CABG, HTN, HLD- COPD--offer advair DuoNeb, albuterol inhaler DM II w/neuropathy--last HgbA1c 7.1 on 11/14/17, stop scale and glucose checks -Continue typically on Trileptal 150 mg PO qam and 300 mg PO hs, Iron Deficiency anemia-- EVENS CPAP w/2L Urinary retention rucker Code Status, DNR
[2018-02-03] MEDS: MoRPHine SULFATE 4 MG/ML 1 ML CARP\\VIAL IV PRN ×3 (11:40→20:04)
[2018-02-03 15:38] VITALS: O2SAT 97
[2018-02-03] MEDS ORDERED: WARFARIN SOD 2 MG TAB PO SCH (16:00)
[2018-02-03] MEDS ORDERED: LORAZEPAM INJ 0.5 MG in SYRINGE 0.75 ML IV PRN (19:30)
[2018-02-03 22:45] VITALS: O2SAT 97
[2018-02-03] MEDS ORDERED: SCOPOLAMINE 1.5 MG TDSY TD SCH (23:15)
[2018-02-03] MEDS ORDERED: ATROPINE SULFATE 1% OP SOLN 5 ML BTL OP SCH (23:15)
[2018-02-04] MEDS: ATROPINE SULFATE 1% OP SOLN 5 ML BTL OP SCH ×3 (06:26→12:25)
[2018-02-04] MEDS: OXCARBAZEPINE 150 MG TAB PO SCH (07:40)
[2018-02-04] MEDS: CHECK SCOPOLAMINE PATCH PLACEMENT SCH ×2 (07:40→16:41)
[2018-02-04] MEDS: MoRPHine SULFATE 4 MG/ML 1 ML CARP\\VIAL IV PRN (07:44)
[2018-02-04] MEDS: FLUTICASONE/SALMETEROL 250/50 (ADVAIR) 14 PUFF/1 INHALER INH SCH (07:46)
--- NOTE | 2018-02-04 09:12 | Palliative Care Progress Note ---
Palliative Care Progress Note Date of Service February 04, 2018. Subjective Pt evaluation today including: conversation w/ family, physical exam Pain: appears comfortable PO Intake: oral mouth care/swabs Voiding: urcker catheter in place Patient evaluated for follow up. Patient transitioned to comfort measures over the weekend, patient with worsening kidney function (BUN 140/Creatinine 3.56) Patient also has UTI that is not responding to treatment. Patient is obtunded, occasionally grunting with movement. Patient , Vaishnavi and son, Ernesto at the bedside. End of life expectations and symptoms to expect were discussed with the patients family. They asked about next steps and what to expect from a logistic standpoint. They expressed interest in transitioning to [facility]. I stated I would advise case management of that request. Patient currently has Atropine gtts and a Sopalamine patch ordered. Patient with audible wheezes - still on 3 LNC. Will continue to offer support to the patients family. Review of Systems Pt obtunded and not able to participate in ROS - appears comfortable Objective Vital Signs Date Time Temp Pulse Resp B/P (MAP) Pulse Ox O2 Delivery O2 Flow Rate FiO2 02/04/18 00:05 Nasal Cannula 3.0 CPAP 02/03/18 22:45 97 Nasal Cannula 3.0 35 CPAP 02/03/18 15:38 97 Nasal Cannula 3.0 35 CPAP Physical Exam General Appearance: no apparent distress (pt does intermittently cough) Respiratory/Chest: + wheezing (audible inspiratory and expiratory wheezes) Cardiovascular: + tachycardia Abdomen: normal bowel sounds, non tender, soft Neurologic/Psychiatric: + pertinent finding (pt obtunded) Skin: warm/dry Laboratory Results Last 24 Hours Test 02/03/18 09:27 Sodium Level 145 mmol/L Potassium Level 4.0 mmol/L Chloride Level 105 mmol/L Carbon Dioxide Level 28 mmol/L Anion Gap 12.0 mmol/L Blood Urea Nitrogen 140 mg/dl Creatinine 3.56 mg/dl Est Creatinine Clear Calc Drug Dose 22.8 ml/min Estimated GFR () 17.4 Estimated GFR (Non- 15.0 BUN/Creatinine Ratio 39.4 Random Glucose 129 mg/dl Calcium Level 8.4 mg/dl Assessment and Plan Palliative Care Encounter Goals of Care CAD AK/CABG x 2 (2007) HTN CKD Stage IV Lymphedema Urinary retention - chronic rucker Diastolic CHF Palliative Care Recommendations: -Would D/C IV Morphine and transition to Roxanol 10mg/mL. Administer 5 mg po Q1 PRN for air hunger/comfort - this will allow for patient to be transferred as well. -Continue with supportive treatment. All non-essential medications have been stopped -Comfort measures has been instituted. Patient with worsening renal and respiratory failure - patient has decided in the past that he would not like to pursue hemodialysis. -Family requesting assistance with transitioning patient to [facility] - The patient is now obtunded and appropriate for hospice. -Case management made aware of family request. Palliative Performance Scale: 10 % Discharge planning: shelter facility Counseling and Coordination Total time spent 35 minutes with > 50% of that time assessing patient and discussing end-of-life care and discharge expectations.
[2018-02-04] MEDS: LORAZEPAM 2 MG/ML 1 ML VIAL IV PRN ×2 (09:38→13:32)
[2018-02-04] MEDS ORDERED: NURSING VERBAL MED ORDER ONE (10:45)
[2018-02-04] MEDS ORDERED: ATROPINE SULFATE 1% OP SOLN 2 ML BTL SL PRN (11:00)
[2018-02-04] MEDS: MoRPHine SULFATE 5 MG/0.25 ML UDP PO PRN ×6 (11:05→18:45)
[2018-02-04] MEDS: ATROPINE SULFATE 1% OP SOLN 2 ML BTL SL PRN ×3 (14:35→17:42)
[2018-02-04] MEDS ORDERED: MoRPHine SULFATE 5 MG/0.25 ML UDP PO PRN (19:15)
[2018-02-04] MEDS ORDERED: FUROSEMIDE INJ 20 MG in SYRINGE 0 ML IV ONE (19:15)
--- NOTE | 2018-02-04 21:08 | Progress Note ---
Subjective Date of Service: February 04, 2018. Subjective Pt evaluation today including: conversation w/ family Patient was examined at 13:00 and at 19:00 Daughter was at bedside. Patient appears to be comfortable and is resting. He does have transmitted breath sounds however. Problem List Medical Problems: (1) Bleeding from PICC line Status: Acute (2) Cellulitis of left lower extremity Status: Acute (3) Chronic kidney disease Status: Acute (4) Dyspnea Status: Acute (5) Facial abrasion Status: Acute (6) Failure of outpatient treatment Status: Acute (7) Fever Status: Acute (8) Fever Status: Acute (9) Fever Status: Acute (10) Hypoxia Status: Acute (11) Lactic acid acidosis Status: Acute (12) Leukocytosis Status: Acute (13) Leukocytosis Status: Acute (14) Pneumonia Status: Acute (15) Renal failure Status: Acute (16) Sepsis Status: Acute (17) Sepsis Status: Acute (18) UTI (urinary tract infection) Status: Acute (19) UTI (urinary tract infection) Status: Acute (20) Weakness Status: Acute Review of Systems Patient is resting comfortably. Unable to obtain ROS. All Other Systems: Reviewed and Negative Medications Current Inpatient Medications Medications (Trade) Dose Ordered Sig/Sukhwinder Route Start Time Stop Time Status Last Admin Dose Admin Acetaminophen (Tylenol Tab) 650 mg Q4H PRN PO 01/22/18 10:45 02/21/18 10:44 02/02/18 09:27 650 MG Al Hydrox/Mg Hydrox/Simethicone (Maalox Max Susp) 15 ml Q4H PRN PO 01/22/18 10:45 02/21/18 10:44 Magnesium Hydroxide (Milk Of Magnesia Susp) 30 ml Q12H PRN PO 01/22/18 10:45 02/21/18 10:44 Ondansetron HCl (Zofran Inj) 4 mg Q6H PRN IV 01/22/18 10:45 02/21/18 10:44 Polyethylene (Miralax Powder Packet) 17 gm DAILY PRN PO 01/22/18 10:45 02/21/18 10:44 Glucose (Glucose 40% Gel) 15-30 GRAMS 15 GRAMS... UD PRN PO 01/22/18 10:45 02/21/18 10:44 Glucose (Glucose Chew Tab) 4-8 Tablets 4 Tabl... UD PRN PO 01/22/18 10:45 02/21/18 10:44 Dextrose (Dextrose 50% 50ML Syringe) 25-50ML 25ML FOR ... UD PRN IV 01/22/18 10:45 02/21/18 10:44 Glucagon (Glucagon Inj) 1 mg UD PRN SQ 01/22/18 10:45 02/21/18 10:44 Carbohydrates (Carbohydrates For Hypoglycemia) 15-30 GRAMS 15 grams if BSG 54-69... UD PRN PO 01/22/18 10:45 02/21/18 10:44 Albuterol (Ventolin Hfa Inhaler) 2 puffs Q4 PRN INH 01/22/18 10:45 02/21/18 10:44 Albuterol/ Ipratropium (Duoneb) 3 ml TID PRN INH 01/22/18 10:45 02/21/18 10:44 Oxcarbazepine (Trileptal Tab) 150 mg QAM PO 01/23/18 09:00 02/22/18 08:59 02/03/18 08:29 150 MG Oxcarbazepine (Trileptal Tab) 300 mg QPM PO 01/22/18 21:00 02/21/18 20:59 02/01/18 21:08 300 MG Salmeterol Xinafoate/ Fluticasone (Advair Diskus 250/50 Inh) 1 puff BID INH 01/31/18 20:00 03/02/18 19:59 02/02/18 08:12 1 PUFF Miconazole Nitrate (Desenex Powder) 1 appln PRN PRN EXT 02/01/18 22:30 03/03/18 22:29 Lorazepam (Ativan Inj) 0.5 mg Q4H PRN IV 02/02/18 14:45 03/04/18 14:44 Lorazepam (Ativan Inj) 1 mg Q4H PRN IV 02/02/18 14:45 03/04/18 14:44 02/04/18 13:32 1 MG Lorazepam 0.5 mg/ Syringe 1 ml @ 1 mls/min Q4H PRN IV 02/03/18 19:30 03/05/18 19:29 02/03/18 20:30 1 MLS/MIN Miscellaneous (Remove Transderm-Scop Patch) 1 ea Q72H N/A 02/06/18 23:15 03/08/18 23:14 Miscellaneous Information (Check Scopolamine Patch Placement) 1 ea QS N/A 02/04/18 08:00 03/06/18 07:59 02/04/18 16:41 1 EA Atropine Sulfate (ATROPINE SULFATE 1% Op Soln 2 ML) 4 drops Q1H PRN SL 02/04/18 14:30 03/06/18 10:59 02/04/18 17:42 4 DROPS Morphine Sulfate (Roxanol Oral Soln) 10 mg Q15M PRN PO 02/04/18 19:15 02/18/18 10:59 Objective Vital Signs Date Time Temp Pulse Resp B/P (MAP) Pulse Ox O2 Delivery O2 Flow Rate FiO2 02/04/18 10:08 Nasal Cannula 3.0 02/04/18 00:05 Nasal Cannula 3.0 CPAP 02/03/18 22:45 97 Nasal Cannula 3.0 35 CPAP Physical Exam Comments: General Appearance: Patient appears resting comfortably, + obese Eyes: normal inspection, sclerae normal Respiratory/Chest: + decreased breath sounds, + accessory muscle use, + rhonchi Cardiovascular: regular rate, rhythm, + systolic murmur Abdomen: + abnormal bowel sounds, + distended Extremities: + pedal edema, + swelling (body wall) Laboratory Results Last 24 Hours Test 02/04/18 12:02 Bedside Glucose 128 mg/dl Assessment and Plan 82 y/o male presented with Hypothermia and SOB, with indwelling rucker cath for urinary outlet obstructio, has a history of CAD, h/o [place] s/p CABG x 2 2007, HTN, HLD, chronic diastolic CHF, a-fib, COPD, DM II with neuropathy, hypothyroidism, JACEK, CKD stage III-IV, lymphedema, EVENS, and urinary retention Patient is currently comfort measures only. D/W Hospice team, appears patient is likely to pass in next 24-48 hours. Will increase opiates for air hunger and increase scopolamine and tropine. Acute renal failure w baseline to CKD third space edema, will give one dose of lasix tonight for comfort purposes. Possible sepsis, UTI poa chronic Rucker comfort measures. Bradycardia, hypothermia, history of Afib on Anticoagulation, did have high TSH and low T4 on presentation comfort measures Coagulopathy from coumadin, additional Vitamin K Acute on chronic diastolic CHF in the face of CKD4 -diuretic dosing per nephrology oversight had only worsening affect on azotemia , ,suspect toxic encephalopathy at this time with pt not a dialysis candidate Acute respiratory distress with hypoxia, likely from diastolic heart failure, obesity also influences work of breathing will use Cpap CAD, h/o [place], CABG, HTN, HLD- COPD--offer advair DuoNeb, albuterol inhaler DM II w/neuropathy--last HgbA1c 7.1 on 11/14/17, stop scale and glucose checks Iron Deficiency anemia-- EVENS CPAP w/2L Urinary retention rucker Code Status, DNR Spent 45 minutes on the management of this case. Discharge planning: detention facility (hospice)
--- NOTE | 2018-02-05 08:10 | Death Summary ---
Summary of Admission Date January 22, 2018 at 11:07 Date & Time of February 04, 2018. 19:15 Cause of Pulmonary congestion secondary to fluid overload secondary to renal failure. Hospital Course 82 y/o male presented with Hypothermia and SOB, with indwelling rucker cath for urinary outlet obstructio, has a history of CAD, h/o [place] s/p CABG x 2 2007, HTN, HLD, chronic diastolic CHF, a-fib, COPD, DM II with neuropathy, hypothyroidism, JACEK, CKD stage III-IV, lymphedema, EVENS, and urinary retention Patient hospitalized for above diagnosis. Patient did not recover renal function during hospital course. Nephrology was on the case. Patient did not respond from diuretics and treatment of hypothyroidism. After discussion with family, patient was converted to comfort measures only. Ordered opiates for air hunger and increase scopolamine and atropine. Patient was examined last at 19:00 and was found to be resting comfortably however, at 19:15. No carotid pulses were palpated. Night time and nursing staff pronounced patient. Copy To Winston Harper M.D.
[2018-02-06] MEDS ORDERED: SCOPOLAMINE 1.5 MG TDSY TD SCH (23:15)
== END 2018-02-04 21:30 | disposition expired | DRG 698 ==
LOC: EDBD 08:16 → C.EDB 08:17 → C.2E 11:07 → EDBEDREQ 11:10 → ENRESERV 11:22 → C.4E 01-30 18:32
PROVIDERS: ADMIT Internal Medicine Sports Medicine; ATTEND Internal Medicine Sports Medicine
DX: T83.511A Infection and inflammatory reaction due to indwelling urethral catheter, initial encounter (principal); A41.9 Sepsis, unspecified organism; I13.0 Hypertensive heart and chronic kidney disease with heart failure and stage 1 through stage 4 chronic kidney disease, or unspecified chronic kidney disease; I50.33 Acute on chronic diastolic (congestive) heart failure; N17.9 Acute kidney failure, unspecified; R04.2 Hemoptysis; J80 Acute respiratory distress syndrome; E11.22 Type 2 diabetes mellitus with diabetic chronic kidney disease; N18.4 Chronic kidney disease, stage 4 (severe); E66.01 Morbid (severe) obesity due to excess calories; Z68.43 Body mass index [BMI] 50.0-59.9, adult; N39.0 Urinary tract infection, site not specified; Z51.5 Encounter for palliative care; I50.813 Acute on chronic right heart failure; R68.0 Hypothermia, not associated with low environmental temperature; I48.2 Chronic atrial fibrillation; N40.1 Benign prostatic hyperplasia with lower urinary tract symptoms; R33.8 Other retention of urine; J44.9 Chronic obstructive pulmonary disease, unspecified; E78.5 Hyperlipidemia, unspecified; E03.9 Hypothyroidism, unspecified; E11.40 Type 2 diabetes mellitus with diabetic neuropathy, unspecified; G47.33 Obstructive sleep apnea (adult) (pediatric); D50.9 Iron deficiency anemia, unspecified; I27.20 Pulmonary hypertension, unspecified; I25.10 Atherosclerotic heart disease of native coronary artery without angina pectoris; I25.2 Old myocardial infarction; Z66 Do not resuscitate; Z79.01 Long term (current) use of anticoagulants; Z79.4 Long term (current) use of insulin; Z79.899 Other long term (current) drug therapy; Z95.1 Presence of aortocoronary bypass graft; Z95.2 Presence of prosthetic heart valve; Z83.3 Family history of diabetes mellitus; Z88.1 Allergy status to other antibiotic agents; Z88.8 Allergy status to other drugs, medicaments and biological substances